=== PATIENT | female | born 1975 | race Hispanic/Latino ===

== ENCOUNTER 2018-01-21 09:14 | Emergency (ER) | payer SELFPAY ==
[2018-01-21 09:54] LABS: Absolute Lymphocytes (CBC) 1.3 K/uL (0.7-4.9); Absolute Monocytes 0.9 K/uL (0.1-1.3); Absolute Neutrophil 6.3 K/uL (1.8-8.0); Basophils % 0.2 % (0-1.3); Eosinophils % 1.1 % (0-4.4); Hematocrit 36.3 % (36.0-45.0); MCV 84.7 fL (80-100); MPV 9.5 fL (7.6-11.3); Monocytes % 10.1 % (3.3-12.3); RBC Red Blood Cell Count 4.28 M/uL (3.86-4.86)
[2018-01-21 10:07] LABS: BUN Blood Urea Nitrogen 5 mg/dL (7-18); Bicarbonate 30 mmol/L (21-32); Glucose Level 179 mg/dL (74-106); Potassium 3.8 mmol/L (3.5-5.1); Sodium Level 135 mmol/L (136-145)
[2018-01-21 10:09] LABS: Urine Blood 2+ (NEG); Urine Glucose 2+ (NEG); Urine Protein NEGATIVE (NEG); Urine pH 7.5 (5.0-7.0)
--- NOTE | 2018-01-21 10:18 | RAD REPORT ---
EXAM DESCRIPTION: CT - Stone Protocol - 01/21/2018 9:58 am CLINICAL HISTORY: Abdominal pain. Upper abdominal pain vomiting and diarrhea for 3 days COMPARISON: December 2016 TECHNIQUE: Computed axial tomography of the abdomen pelvis was obtained without oral or IV contrast. Lack of IV and oral contrast limits evaluation of solid organs, bowel, and vessels. Coronal reformat cecilia images were obtained and reviewed. All CT scans are performed using dose optimization technique as appropriate and may include automated exposure control or mA/KV adjustment according to patient size. FINDINGS: A renal calculus is not seen. An ureteral calculus is not noted. A bladder calculus is not present. Mild nodularity of the omentum and mesentery is without significant change from the prior e xamination. A cirrhotic liver is seen. The spleen measures 16 centimeters. The pancreas and adrenals appear grossly normal. The gallbladder has been removed There is no evidence of diverticulitis. The appendix appears normal An adnexal mass is not seen. The a minimal amount of ascites is present. A tiny umbilical hernia is present. IMPRESSION: Negative for a genitourinary calculus Cirrhosis with mild to moderate splenomegaly
[2018-01-21 10:21] LABS: Urine Bacteria <20 /HPF (<20); Urine Culture Reflex Order REFLEXED; Urine RBC >50 /HPF (NONE SEEN)
[2018-01-21] MEDS ORDERED: NA CHLORIDE 0.9% 1,000 ML ONE (10:23)
--- NOTE | 2018-01-21 11:27 | EDPHYS ---
Physician Documentation [facility] Name: Rosanna York Age: 42 yrs Sex: Female : 1975 Arrival Date: 01/21/2018 Time: 09:16 Bed 16 Private MD: Petra Huff ED Physician Gabriele Garay HPI: 01/21 12:19 This 42 yrs old Female presents to ER via Ambulatory with complaints of Flank gs Pain. 12:19 The patient complains of pain in the left low back. Onset: The symptoms/episode gs began/occurred 2 day(s) ago. Modifying factors: The symptoms are alleviated by nothing. the symptoms are aggravated by nothing. Associated signs and symptoms: Pertinent positives: hematuria, Pertinent negatives: fever. Severity of pain: At its worst the pain was moderate in the emergency department the pain has improved mildly. The patient has experienced similar episodes in the past, a few times. The patient has been recently seen by a physician: the patient's primary care provider, earlier today. 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 - Social history:: Smoking status: Patient uses tobacco products, denies chronic smoking, but will smoke occasionally. - Ebola Screening: : No symptoms or risks identified at this time. ROS: 12:19 All other systems are negative. gs Exam: 12:19 Head/Face: Normocephalic, atraumatic. Eyes: Pupils equal round and reactive to light, gs extra-ocular motions intact. Lids and lashes normal. Conjunctiva and sclera are non-icteric and not injected. Cornea within normal limits. Periorbital areas with no swelling, redness, or edema. ENT: Nares patent. No nasal discharge, no septal abnormalities noted. Tympanic membranes are normal and external auditory canals are clear. Oropharynx with no redness, swelling, or masses, exudates, or evidence of obstruction, uvula midline. Mucous membranes moist. Neck: Trachea midline, no thyromegaly or masses palpated, and no cervical lymphadenopathy. Supple, full range of motion without nuchal rigidity, or vertebral point tenderness. No Meningismus. Chest/axilla: Normal chest wall appearance and motion. Nontender with no deformity. No lesions are appreciated. Cardiovascular: Regular rate and rhythm with a normal S1 and S2. No gallops, murmurs, or rubs. Normal PMI, no JVD. No pulse deficits. Respiratory: Lungs have equal breath sounds bilaterally, clear to auscultation and percussion. No rales, rhonchi or wheezes noted. No increased work of breathing, no retractions or nasal flaring. Abdomen/GI: Soft, non-tender, with normal bowel sounds. No distension or tympany. No guarding or rebound. No evidence of tenderness throughout. Skin: Warm, dry with normal turgor. Normal color with no rashes, no lesions, and no evidence of cellulitis. MS/ Extremity: Pulses equal, no cyanosis. Neurovascular intact. Full, normal range of motion. Neuro: Awake and alert, GCS 15, oriented to person, place, time, and situation. Cranial nerves II-XII grossly intact. Motor strength 5/5 in all extremities. Sensory grossly intact. Cerebellar exam normal. Normal gait. 12:19 Constitutional: The patient appears alert, awake. 12:19 ECG was reviewed by the Attending Physician. 12:19 Back: CVA tenderness, that is moderate, is noted on the left. Vital Signs: 09:25 BP 126 / 86; Pulse 89; Resp 18 S; Temp 99.3(O); Pulse Ox 98% on R/A; Weight 59.42 kg aa5 (R); Height 5 ft. 6 in. (167.64 cm) (R); Pain 8/10; 10:21 BP 147 / 85; Pulse 89; Resp 16; Pulse Ox 97% ; bp 09:25 Body Mass Index 21.14 (59.42 kg, 167.64 cm) aa5 MDM: 09:45 Patient medically screened. gs 12:19 Differential diagnosis: nephrolithiasis, pyelonephritis, UTI. Data reviewed: vital gs signs, nurses notes. Response to treatment: the patient's symptoms have markedly improved after treatment, and as a result, I will discharge patient. 01/21 09:43 Order name: Urine Microscopic Only; Complete Time: 10:45 gs 10/22 09:43 Order name: CBC with Diff; Complete Time: 10:45 gs 01/21 09:43 Order name: Basic Metabolic Panel; Complete Time: 10:45 gs 01/21 09:43 Order name: Flu; Complete Time: 10:45 gs 01/21 09:46 Order name: Urine Dipstick--Ancillary (enter results); Complete Time: 10:45 bd 01/21 10:23 Order name: Urine Culture [facility] 01/21 09:43 Order name: Urine Test (obtain specimen); Complete Time: 10:20 gs 01/21 09:43 Order name: Urine Dipstick-Ancillary (obtain specimen); Complete Time: 10:20 gs 01/21 09:43 Order name: CT Stone Protocol; Complete Time: 10:45 gs 01/21 09:43 Order name: EKG; Complete Time: 09:43 gs 01/21 09:43 Order name: EKG - Nurse/Tech; Complete Time: 10:20 gs EC:19 Rate is 83 beats/min. Rhythm is regular. [place] interval is normal. QRS interval is normal. gs QT interval is normal. T waves are Normal. No ST changes noted. Clinical impression: Abnormal EKG without significant change. Interpreted by me. Administered Medications: 10:15 Drug: NS 0.9% 1000 ml Route: IV; Rate: 1 bolus; Site: left antecubital; bp 11:15 Follow up: IV Status: Completed infusion; IV Intake: 1000ml ls4 Disposition: 01/21/18 11:01 Discharged to Home. Impression: Acute tubulo-interstitial nephritis. - Condition is Stable. - Discharge Instructions: Pyelonephritis, Adult. - Prescriptions for Ceftin 500 mg Oral Tablet - take 1 tablet by ORAL route every 12 hours for 10 days; 20 tablet. - Medication Reconciliation Form, Thank You Letter, Antibiotic Education, Prescription Opioid Use form. - Follow up: Private Physician; When: 2 - 3 days; Reason: Re-evaluation by your physician. Signatures: Dispatcher [employer] Tanvi Galdamez, RN RN aa5 Gabriele Garay MD MD gs Peltier, Brian, RN RN bp Kathleen Seth RN RN ls4 Corrections: (The following items were deleted from the chart) 11:26 11:01 01/21/2018 11:01 Discharged to Home. Impression: Acute tubulo-interstitial ls4 nephritis. Condition is Stable. Forms are Medication Reconciliation Form, Thank You Letter, Antibiotic Education, Prescription Opioid Use. Follow up: Private Physician; When: 2 - 3 days; Reason: Re-evaluation by your physician. gs
--- NOTE | 2018-01-21 11:27 | ER ---
Nurse's Notes [facility] Name: Rosanna York Age: 42 yrs Sex: Female : 1975 Arrival Date: 01/21/2018 Time: 09:16 Bed 16 Private MD: Petra Huff Diagnosis: Acute tubulo-interstitial nephritis Presentation: 01/21 09:22 Presenting complaint: Patient states: upper abd pain, N/V/D that began 2-3 days ago. aa5 09:22 Transition of care: patient was not received from another setting of care. Onset of aa5 symptoms was December 2017. Risk Assessment: Do you want to hurt yourself or someone else? Patient reports no desire to harm self or others. Initial Sepsis Screen: Does the patient meet any 2 criteria? No. Patient's initial sepsis screen is negative. Does the patient have a suspected source of infection? No. Patient's initial sepsis screen is negative. Care prior to arrival: None. 09:22 Method Of Arrival: Ambulatory aa5 09:22 Acuity: BRYAN 3 aa5 Triage Assessment: 11:25 General: Appears in no apparent distress. Behavior is cooperative. Pain: Complains of ls4 pain in left upper quadrant. 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 - Social history:: Smoking status: Patient uses tobacco products, denies chronic smoking, but will smoke occasionally. - Ebola Screening: : No symptoms or risks identified at this time. Screenin:00 Abuse screen: Denies threats or abuse. ls4 11:00 Nutritional screening: No deficits noted. Tuberculosis screening: No symptoms or risk ls4 factors identified. Fall Risk None identified. Vital Signs: 09:25 BP 126 / 86; Pulse 89; Resp 18 S; Temp 99.3(O); Pulse Ox 98% on R/A; Weight 59.42 kg aa5 (R); Height 5 ft. 6 in. (167.64 cm) (R); Pain 8/10; 10:21 BP 147 / 85; Pulse 89; Resp 16; Pulse Ox 97% ; bp 09:25 Body Mass Index 21.14 (59.42 kg, 167.64 cm) aa5 ED Course: 09:16 Patient arrived in ED. mr 09:17 Petra Huff is Private Physician. mr 09:22 Arm band placed on Patient placed in an exam room, on a stretcher. aa5 09:23 Gabriele Garay MD is Attending Physician. 09:29 Triage completed. aa5 09:49 Kathleen Seth, RN is Primary Nurse. ls4 09:49 Patient has correct armband on for positive identification. Bed in low position. Call ls4 light in reach. Side rails up X2. 09:49 No provider procedures requiring assistance completed. Inserted saline lock: 20 gauge ls4 in left antecubital area, using aseptic technique. Blood collected. 09:58 CT Stone Protocol In Process Unspecified. EDMS 10:37 EKG done, by assistive technology specialist. reviewed by Gabriele Garay MD. tc 11:25 IV discontinued, intact, bleeding controlled, No redness/swelling at site. Pressure ls4 dressing applied. Administered Medications: 10:15 Drug: NS 0.9% 1000 ml Route: IV; Rate: 1 bolus; Site: left antecubital; bp 11:15 Follow up: IV Status: Completed infusion; IV Intake: 1000ml ls4 Intake: 11:15 IV: 1000ml; Total: 1000ml. ls4 Outcome: 11:01 Discharge ordered by . 11:26 Discharged to home ambulatory, with family. ls4 11:26 Condition: stable 11:26 Discharge instructions given to patient, Instructed on discharge instructions, follow up and referral plans. medication usage, safety practices, Demonstrated understanding of instructions, follow-up care, medications, Prescriptions given X 1. 11:26 Patient left the ED. ls4 Signatures: Dispatcher [employer] Shagufta Gutierrez Audri, RN RN aa5 Edilia Cruz, otter trawler boatswain EKG Ttc Gabriele Garay MD MD gs Peltier, Brian, LYDIA RN bp Kathleen Seth, LYDIA RN ls4
[2018-01-21 11:49] VITALS: TEMP 99.3
[2018-01-21 11:50] VITALS: BP 147/85; O2SAT 97
--- NOTE | 2018-01-21 16:21 | EKG ---
Test Date: 2018-01-21 Test Time: 10:02:48 Rock Crusher Operator: VIC MEASUREMENT RESULTS: Intervals: Rate: 83 [place]: 178 QRSD: 94 QT: 372 QTc: 437 [place]: P: 66 [place]: 178 QRS: -39 T: 75 INTERPRETIVE STATEMENTS: Normal sinus rhythm Left axis deviation Abnormal ECG Compared to ECG 03/16/2017 15:32:51 Left-axis deviation now present Left anterior fascicular block no longer present Electronically Signed On 01-21-18 16:21:06 CDT by Ruslan Chan
== END 2018-01-21 11:26 | disposition home or self-care (01) ==
LOC: ER 09:14
DX: N10 Acute pyelonephritis (principal); I10 Essential (primary) hypertension; Z72.0 Tobacco use; Z88.0 Allergy status to penicillin
CPT/HCPCS: 36415; 74176; 76377; 80048; 81003; 81015; 85025; 87086; 87088; 87804; 93005; 96360; 99284; J7030

== ENCOUNTER 2018-02-02 09:54 | Inpatient (IN) | payer SELFPAY ==
--- NOTE | 2018-02-02 10:57 | RAD REPORT ---
EXAM DESCRIPTION: Calvin Single View02/02/2018 10:39 am CLINICAL HISTORY: Chest pain COMPARISON: March 2017 FINDINGS: The lungs appear clear of acute infiltrate. The heart is normal size IMPRESSION: No acute abnormalities displayed
[2018-02-02] MEDS ORDERED: ONDANSETRON 4 MG/2 ML VIAL ONE (10:59)
[2018-02-02] MEDS ORDERED: FENTANYL CITR 100 MCG/2 ML ONE (10:59)
--- NOTE | 2018-02-02 11:01 | RAD REPORT ---
EXAM DESCRIPTION: RAD - Foot Right 3 View - 02/02/2018 10:39 am CLINICAL HISTORY: Right foot pain FINDINGS: No fracture or dislocation is seen. Diffuse edema is present within the subcutaneous tissu es. The bones are osteoporotic no bony destructive lesions seen
[2018-02-02] MEDS ORDERED: ZOLPIDEM TARTRATE 5 MG TABLET PO PRN (11:13)
[2018-02-02] MEDS ORDERED: HYDROCODONE/APAP 7.5/325 MG TAB PO PRN (11:13)
[2018-02-02] MEDS ORDERED: TRAMADOL HCL 50 MG TAB PO PRN (11:13)
[2018-02-02 11:28] LABS: Absolute Lymphocytes (CBC) 0.7 K/uL (0.7-4.9); Absolute Monocytes 0.7 K/uL (0.1-1.3); Absolute Neutrophil 6.8 K/uL (1.8-8.0); Basophils % 0.5 % (0-1.3); Eosinophils % 4.3 % (0-4.4); Hematocrit 32.1 % (36.0-45.0); Lymphocytes % 8.6 % (15.3-44.8); MCH 28.3 pg (27.0-35.0); MCV 84.9 fL (80-100); MPV 9.3 fL (7.6-11.3); Monocytes % 8.2 % (3.3-12.3); RBC Red Blood Cell Count 3.78 M/uL (3.86-4.86)
[2018-02-02 11:40] LABS: Urine Blood 2+ (NEG); Urine Glucose 2+ (NEG); Urine Protein 1+ (NEG); Urine Specific Gravity >1.030 (1.005-1.030)
--- NOTE | 2018-02-02 11:44 | P.HP ---
Certification for Inpatient Patient admitted to: Inpatient With expected LOS: >2 Midnights Patient will require the following post-hospital care: Other (Patient may require home health services) Practitioner: I am a practitioner with admitting privileges, knowledge of patient current condition, hospital course, and medical plan of care. Services: Services provided to patient in accordance with Admission requirements found in Title 42 Section 412.3 of the Code of Federal Regulations Patient History Date of Service: 02/02/18 Primary Care Provider: Sunni Huff NP Reason for admission: Right foot cellulitis, failed outpatient therapy History of Present Illness: 42-year-old female presented emergency room with worsening right foot cellulitis. Patient reports that she was seen by her PCP early this week. She was provided medication for cellulitis to the right foot. She took 2 different types of antibiotics. Patient is diabetic with neuropathy. She reported that she stepped on something. Patient noted increasing pain, swelling, erythema to the right foot. She came to the ER for further evaluation. In the ER patient evaluated. White count 8.7, hemoglobin 10.7. BMP pending. X -ray shows diffuse edema to the foot. No bony abnormality noted. Chest x-ray unremarkable. Patient found to have significant right foot cellulitis/abscess. Patient admitted for treatment. When I saw the patient ER, she appeared stable. Patient had pain, erythema, swelling to the right foot. Patient reports history of diabetes type 2, insulin -dependent, depression, diabetic neuropathy and tobacco use. Allergies acetaminophen [From Tylenol] Allergy (Unverified 03/16/17 18:59) Unknown Penicillins Allergy (Verified 01/14/17 08:17) Unknown Home medications list reviewed: Yes Home Medications: Ciprofloxacin HCl [Cipro 250 MG Tablet*] 250 mg PO BID #10 tab 01/16/17 Metformin HCl 500 mg PO BID #60 tablet 01/16/17 - Past Medical/Surgical History -: Diabetes mellitus type 2, insulin dependent -: Tobacco abuse -: Diabetic neuropathy -: Depression -: Insomnia -: Cholecystectomy Psychosocial/ Personal History: Patient is . She has 5 children. 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 - Family History Mother -: Heart disease, Diabetes - Social History Smoking Status: Light Tobacco smoker (1-9 cigarettes/day) Counseled patient to stop smoking for: less than 10 minutes Smoking therapy provided: Yes Patient receptive to therapy: Yes Alcohol use: No CD- Drugs: No Caffeine use: Yes Place of Residence: Home Review of Systems General: Weakness, As per HPI Eyes: Unremarkable ENT: Unremarkable Respiratory: Unremarkable Cardiovascular: Unremarkable Gastrointestinal: Unremarkable Genitourinary: Unremarkable Musculoskeletal: Foot Pain, Pedal edema, As per HPI Integumentary: As per HPI Neurological: Unremarkable Lymphatics: Unremarkable Physical Examination - Physical Exam General: Alert, Oriented x3, Cooperative HEENT: Atraumatic Neck: Supple Respiratory: Clear to auscultation bilaterally, Normal air movement Cardiovascular: Normal pulses, Regular rate/rhythm Gastrointestinal: Normal bowel sounds, Soft and benign, Non-distended, No tenderness, No masses, No rebound, No guarding Musculoskeletal: Erythema, Tenderness, Warmth, Other (Right foot with erythema, pain and swelling. Area of infection covers the 3rd 4th 5th toes and forefoot also on the bottom of her foot there is a collection of fluctuance.) Integumentary: Other (As above) Neurological: Normal speech, Normal strength at 5/5 x4 extr, Normal tone, Normal affect - Studies Laboratory Data (last 24 hrs) 02/02/18 10:50: WBC 8.7, Hgb 10.7 L, Hct 32.1 L, Plt Count 174 D Assessment and Plan - Plan Impression: Right diabetic foot cellulitis with abscess, failed outpatient therapy Diabetes mellitus type 2, insulin dependent, uncontrolled Diabetic neuropathy Anemia likely of chronic disease Tobacco abuse Depression Insomnia Plan: Right diabetic foot cellulitis with abscess, failed outpatient therapy: Patient will be admitted. Will start IV Levaquin and vancomycin. Pharmacy to adjust medication. X-ray shows no bony abnormality indicating osteomyelitis. Will discuss case further with surgery. Patient may require debridement. Will follow along closely. Will obtain wound and blood cultures. Will monitor pro calcitonin. Will continue to reassess. Will provide medication for pain. Will check to see if the patient is up-to-date on her tetanus shot. DVT prophylaxis in place. Depending how she progresses patient may require home health at discharge. Diabetes mellitus type 2, insulin dependent, uncontrolled: Will start insulin sliding scale. Will obtain home medication and verify. Will check A1c. Diabetic neuropathy: Will start Neurontin. Will provide medication for pain. Anemia likely of chronic disease: Will monitor closely. Will check Iron studies. Tobacco abuse: Will provide nicoderm. Depression: Will verify home medication and restart. Insomnia: Will provide medication. Patient reports taking Ambien 20 mg. This is a high dose. Will decrease to 10 as needed. Discharge Plan: Home Plan to discharge in: Greater than 2 days - Advance Directives Does patient have a Living Will: No Does patient have a Durable POA for Healthcare: No - Code Status/Comfort Care Code Status Assessed: Yes (Patient full code.) Time Spent Managing Pts Care (In Minutes): 55
[2018-02-02 11:49] LABS: Urine Bacteria 20-50 /HPF (<20); Urine Culture Reflex Order NOT NEEDED; Urine RBC >50 /HPF (NONE SEEN)
[2018-02-02 11:58] LABS: ALT/SGPT 19 U/L (12-78); AST/SGOT 23 U/L (15-37); Albumin 2.6 g/dL (3.4-5.0); Alkaline Phosphatase 270 U/L (45-117); BUN Blood Urea Nitrogen 9 mg/dL (7-18); Bicarbonate 27 mmol/L (21-32); Bilirubin Direct 0.4 mg/dL (0-0.2); Bilirubin Total 0.8 mg/dL (0.2-1.0); Creatine Phosphokinase 30 U/L (26-192); Glucose Level 276 mg/dL (74-106); Potassium 3.6 mmol/L (3.5-5.1); Protein, Total 8.4 g/dL (6.4-8.2); Sodium Level 132 mmol/L (136-145)
[2018-02-02] MEDS: Levofloxacin500mg IV 500 MG/100 ML BAG IV SCH (12:00)
[2018-02-02] MEDS: VANCOMYCIN/NS 1 gm 1 GM/250 ML BAG IV SCH (12:00)
--- NOTE | 2018-02-02 12:09 | EDPHYS ---
Physician Documentation [facility] Name: Rosanna York Age: 42 yrs Sex: Female : 1975 Arrival Date: 02/02/2018 Time: 09:56 Bed 14 Private MD: ED Physician James Arias HPI: 02/02 10:25 This 42 yrs old Female presents to ER via Ambulatory with complaints of Wound cp Check - antibiotics not working. 10:25 The patient presents with pain, that is acute, swelling, tenderness. The complaints cp affect the right foot. 10:25 Onset: The symptoms/episode began/occurred 1 week(s) ago. Associated signs and cp symptoms: Pertinent negatives: fever. Severity of symptoms: in the emergency department the symptoms are actually worse. Patient reports finishing 7 day course of oral Bactrim and redness and swelling worse right foot. 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 - Social history:: Smoking status: Patient uses tobacco products, denies chronic smoking, but will smoke occasionally. - Ebola Screening: : No symptoms or risks identified at this time. ROS: 10:31 Eyes: Negative for injury, pain, redness, and discharge. cp 10:31 Constitutional: Negative for body aches, chills, fever, poor PO intake. 10:31 Cardiovascular: Negative for chest pain, palpitations. 10:31 Respiratory: Negative for cough, shortness of breath, wheezing. 10:31 Abdomen/GI: Negative for abdominal pain, nausea, vomiting, and diarrhea. 10:31 MS/extremity: Positive for erythema, pain, swelling, tenderness, of the right foot. 10:31 Skin: Positive for cellulitis, open wound right foot. 10:31 Neuro: Negative for altered mental status, headache, weakness. 10:31 All other systems are negative. Exam: 10:35 Constitutional: The patient appears in no acute distress, alert, awake, cp non-diaphoretic, non-toxic, well developed, well nourished. 10:35 Head/Face: Normocephalic, atraumatic. cp 10:35 Eyes: Periorbital structures: appear normal, Conjunctiva: normal, no exudate, no injection, Sclera: no appreciated abnormality, Lids and lashes: appear normal, bilaterally. 10:35 ENT: External ear(s): are unremarkable, Ear canal(s): are normal, clear, TM's: dullness, bilaterally, Nose: is normal, Mouth: Lips: moist, Oral mucosa: pink and intact, moist, Posterior pharynx: is normal, airway is patent, no erythema, no exudate, Voice: is normal. 10:35 Neck: ROM/movement: is normal, is supple, without pain, no range of motions limitations, no nuchal rigidity. 10:35 Chest/axilla: Inspection: normal, Palpation: is normal, no crepitus, no tenderness. 10:35 Cardiovascular: Rate: normal, Rhythm: regular, Pulses: Pulses are 1+ in right dorsalis pedis artery. JVD: is not appreciated. 10:35 Respiratory: the patient does not display signs of respiratory distress, Respirations: normal, no use of accessory muscles, no retractions, no splinting, no tachypnea, labored breathing, is not present, Breath sounds: are clear throughout, no decreased breath sounds, no stridor, no wheezing. 10:35 Abdomen/GI: Inspection: abdomen appears normal, Palpation: abdomen is soft and non-tender, in all quadrants. 10:35 Back: pain, is absent, ROM is normal. 10:35 Neuro: Orientation: to person, place \T\ time. Mentation: is normal, Cerebellar function: is grossly normal, Motor: moves all fours, strength is normal, Sensation: no obvious gross deficits. 10:35 Musculoskeletal/extremity: Extremities: grossly normal except: noted in the right foot: cp erythema, pain, swelling, tenderness, drainage from web space of fourth and fifth toes. 11:19 ECG was reviewed by the Attending Physician. cp Vital Signs: 10:00 BP 122 / 82; Pulse 86; Resp 16; Temp 99; Pulse Ox 100% on R/A; Weight 58.06 kg; Height la1 5 ft. 6 in. (167.64 cm); Pain 7/10; 12:00 BP 128 / 83; Pulse 79; Resp 16; Pulse Ox 100% ; rb1 13:00 BP 133 / 74; Pulse 77; Resp 17; Pulse Ox 100% ; rb1 10:00 Body Mass Index 20.66 (58.06 kg, 167.64 cm) la1 MDM: 10:10 Patient medically screened. cp 10:59 Physician consultation: Boaz Grajeda DO was contacted at 10:45, in the emergency cp department to see patient at 10:55. 11:00 Differential diagnosis: cellulitis, sepsis, osteomyelitis. cp 12:07 Data reviewed: vital signs, nurses notes, lab test result(s), radiologic studies, plain cp films. 12:07 Test interpretation: by ED physician or midlevel provider: plain radiologic studies. 02/02 10:30 Order name: C-Reactive Protein 02/02 10:30 Order name: Sed Rate 02/02 10:30 Order name: Wound Culture 02/02 10:30 Order name: Basic Metabolic Panel 02/02 10:30 Order name: Blood Culture Adult (2) 02/02 10:30 Order name: CBC with Diff 02/02 10:30 Order name: CPK 02/02 10:30 Order name: Lactate 02/02 10:30 Order name: LFT's 02/02 10:30 Order name: Procalcitonin; Complete Time: 12:05 cp 02/02 12:06 Interpretation: Within normal limits: Procalcitonin 0.20. cp 02/02 10:30 Order name: Protime (+inr) cp 02/02 10:30 Order name: Ptt, Activated cp 02/02 10:30 Order name: Urine Microscopic Only; Complete Time: 11:53 cp 02/02 11:53 Interpretation: Normal except: UWBC 5-10; URBC >50; UBACT 20-50; SQEPI 10-20. cp 02/02 10:31 Order name: C-Reactive Protein; Complete Time: 12:05 EDMS 02/02 12:06 Interpretation: Abnormal: C-REACTIVE PROT 96.00. cp 02/02 10:31 Order name: Sedimentation Rate, Westergren; Complete Time: 12:05 [facility] 02/02 10:31 Order name: Wound Culture [facility] 02/02 10:31 Order name: Basic Metabolic Panel; Complete Time: 12:05 [facility] 02/02 12:06 Interpretation: Normal except: NA 132; GLUC 276; CA 8.3. 02/02 10:31 Order name: Blood Culture [facility] 02/02 10:31 Order name: CBC with Automated Diff; Complete Time: 12:05 [facility] 02/02 11:42 Interpretation: Normal except: RBC 3.78; HGB 10.7; HCT 32.1; PLT 174; LEONIDAS% 78.4; LYM% cp 8.6. 02/02 10:31 Order name: Creatine Phosphokinase; Complete Time: 12:05 [facility] 02/02 10:31 Order name: Lactate [facility] 02/02 10:31 Order name: Liver (Hepatic) Function; Complete Time: 12:05 [facility] 02/02 11:11 Order name: Urine Culture 02/02 11:24 Order name: Hemoglobin A1c [facility] 02/02 11:24 Order name: T4 Free [facility] 02/02 11:24 Order name: Thyroid Stimulating Hormone [facility] 02/02 11:24 Order name: Blood Culture [facility] 02/02 11:38 Order name: Urine Dipstick--Ancillary (enter results) [facility] 02/02 11:38 Order name: Urine --Ancillary (enter results) [facility] 02/02 11:41 Order name: Urine --Ancillary; Complete Time: 11:42 [facility] 02/02 11:54 Interpretation: Reviewed. 02/02 10:18 Order name: XRAY Foot RIGHT 3 View; Complete Time: 11:05 02/02 11:05 Interpretation: Report reviewed. 02/02 10:30 Order name: Chest Single View XRAY; Complete Time: 11:05 02/02 11:06 Interpretation: Report review. 02/02 10:30 Order name: Accucheck; Complete Time: 11:43 02/02 10:30 Order name: Cardiac monitoring; Complete Time: 11:37 02/02 10:30 Order name: EKG - Nurse/Tech; Complete Time: 11:19 02/02 10:30 Order name: IV Saline Lock - Large Bore; Complete Time: 11:01 02/02 10:30 Order name: Labs collected and sent; Complete Time: 11:01 02/02 10:30 Order name: O2 Per Protocol; Complete Time: 11:01 02/02 10:30 Order name: O2 Sat Monitoring; Complete Time: 11:01 02/02 10:30 Order name: Urine Dipstick-Ancillary (obtain specimen); Complete Time: 11:36 02/02 10:34 Order name: Urine Test (obtain specimen); Complete Time: 11:36 02/02 11:24 Order name: CONS Pharmacy Consult [facility] 02/02 11:24 Order name: CONS Physician Consult [facility] 02/02 11:24 Order name: Consistent Carb (ADA) [address] [facility] 02/02 11:41 Order name: Urine Dipstick-Ancillary; Complete Time: 11:42 [facility] 02/02 11:42 Interpretation: Normal except: UGLUC 2+; UBLD 2+; UPROT 1+. cp EC:19 Rate is 80 beats/min. Rhythm is regular. WI interval is normal. QRS interval is normal. cp QT interval is normal. Interpreted by me. Reviewed by me. Administered Medications: 11:00 Drug: fentaNYL (PF) 25 mcg Route: IVP; Site: right antecubital; rb1 11:15 Follow up: Response: No adverse reaction; Pain is decreased rb1 11:00 Drug: Zofran 4 mg Route: IVP; Site: right antecubital; rb1 11:15 Follow up: Response: No adverse reaction; Nausea is decreased rb1 12:16 Drug: vancoMYCIN 1 grams Route: IVPB; Infused Over: 2 hrs; Site: right antecubital; rb1 13:05 Follow up: Response: No adverse reaction; IV Status: Infusion continued upon admission rb1 12:45 Drug: LevaQUIN 750 mg Volume: 150 ml; Route: IVPB; Infused Over: 90 mins; Site: right rb1 antecubital; 13:05 Follow up: Response: No adverse reaction; IV Status: Infusion continued upon admission rb1 Point of Care Testing: Blood Glucose: 11:43 Blood Glucose: 269 mg/dL; ds4 Ranges: Critical Glucose Levels:Adult <50 mg/dl or >400 mg/dl <40 mg/dl or >180 mg/dl Disposition: 16:49 Co-signature as Attending Physician, James Arias MD I agree with the assessment and kdr plan of care. Disposition: 02/02/18 12:08 Hospitalization ordered by Boaz Grajeda for Inpatient Admission. Preliminary diagnosis is Cellulitis and acute lymphangitis of other parts of limb - Right Foot. - Bed requested for Telemetry/MedSurg (Inpatient). - Status is Inpatient Admission. rb1 - Condition is Stable. - Problem is an ongoing problem. - Symptoms are unchanged. UTI on Admission? No Signatures: Dispatcher [employer] EDMS James Arias MD MD kdr Martinez, Eric em1 Chris Li RN RN la1 Abner South PA PA cp Tash Yu, RN RN rb1 Corrections: (The following items were deleted from the chart) 10:26 10:26 This 42 yrs old Female presents to ER via Ambulatory with complaints of cp Wound Check - antibiotics not working. cp 11:03 10:05 Home Meds: Prozac Oral; rb1 rb1 11:03 10:05 Home Meds: Ambien Oral; rb1 rb1 12:06 12:06 Normal except: NA 132; GLUC 276. cp cp 12:19 12:08 Hospitalization Ordered by Boaz Grajeda DO for Inpatient Admission. Preliminary em1 diagnosis is Cellulitis and acute lymphangitis of other parts of limb - Right Foot. Bed requested for Telemetry/MedSurg (Inpatient). Status is Inpatient Admission. Condition is Stable. Problem is an ongoing problem. Symptoms are unchanged. UTI on Admission? No. cp 13:10 12:19 02/02/2018 12:08 Hospitalization Ordered by Boaz Grajeda DO for Inpatient rb1 Admission. Preliminary diagnosis is Cellulitis and acute lymphangitis of other parts of limb - Right Foot. Bed requested for Telemetry/MedSurg (Inpatient). Status is Inpatient Admission. Condition is Stable. Problem is an ongoing problem. Symptoms are unchanged. UTI on Admission? No. em1
--- NOTE | 2018-02-02 12:09 | ER ---
Nurse's Notes [facility] Name: Rosanna York Age: 42 yrs Sex: Female : 1975 Arrival Date: 02/02/2018 Time: 09:56 Bed 14 Private MD: Diagnosis: Cellulitis and acute lymphangitis of other parts of limb-Right Foot Presentation: 02/02 09:59 Presenting complaint: Patient states: RIGHT foot pain and swelling x 1 week. Transition la1 of care: patient was not received from another setting of care. Onset of symptoms was February 02, 2018. Risk Assessment: Do you want to hurt yourself or someone else? Patient reports no desire to harm self or others. Care prior to arrival: None. 09:59 Method Of Arrival: Ambulatory la1 09:59 Acuity: BRYAN 3 la1 10:05 Initial Sepsis Screen: Does the patient meet any 2 criteria? No. Patient's initial rb1 sepsis screen is negative. Does the patient have a suspected source of infection? No. Patient's initial sepsis screen is negative. 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 - Social history:: Smoking status: Patient uses tobacco products, denies chronic smoking, but will smoke occasionally. - Ebola Screening: : No symptoms or risks identified at this time. Screenin:05 Abuse screen: Denies threats or abuse. Nutritional screening: No deficits noted. rb1 Tuberculosis screening: No symptoms or risk factors identified. Fall Risk None identified. Assessment: 10:05 General: Appears uncomfortable, Behavior is calm, cooperative, Reports chills for rb1 Denies fever. Pain: Complains of pain in right foot Pain radiates to right leg Pain currently is 7 out of 10 on a pain scale. Pain began x 1 week. Neuro: Level of Consciousness is awake, alert, obeys commands, Oriented to person, place, time, situation. Cardiovascular: Capillary refill < 3 seconds is brisk in bilateral fingers. Respiratory: Airway is patent Respiratory effort is even, unlabored, Respiratory pattern is regular, symmetrical. GI: Reports diarrhea. : No signs and/or symptoms were reported regarding the genitourinary system. Derm: dark purple discoloration on the right foot, skin is sloughing off the 4th toe on the right foot and the sole of the right foot. Musculoskeletal: Range of motion: intact in all extremities. 10:55 Reassessment: Dr. Grajeda is at pt. bedside. rb1 11:00 Reassessment: Patient appears in no apparent distress at this time. Patient and/or rb1 family updated on plan of care and expected duration. Pain level reassessed. Patient is alert, oriented x 3, equal unlabored respirations, skin warm/dry/pink. 12:17 Reassessment: Patient appears in no apparent distress at this time. Patient and/or rb1 family updated on plan of care and expected duration. Pain level reassessed. Patient is alert, oriented x 3, equal unlabored respirations, skin warm/dry/pink. 12:37 Reassessment: Tried to call report but LYDIA Nava was unavailable. She will call back. rb1 12:45 Reassessment: Gave report to LYDIA Nava. Information from the SBAR was given. All rb1 questions asked and answered. 13:07 Reassessment: Patient appears in no apparent distress at this time. No changes from rb1 previously documented assessment. Vital Signs: 10:00 BP 122 / 82; Pulse 86; Resp 16; Temp 99; Pulse Ox 100% on R/A; Weight 58.06 kg; Height la1 5 ft. 6 in. (167.64 cm); Pain 7/10; 12:00 BP 128 / 83; Pulse 79; Resp 16; Pulse Ox 100% ; rb1 13:00 BP 133 / 74; Pulse 77; Resp 17; Pulse Ox 100% ; rb1 10:00 Body Mass Index 20.66 (58.06 kg, 167.64 cm) la1 ED Course: 09:56 Patient arrived in ED. as 10:00 Triage completed. la1 10:01 Arm band placed on right wrist. la1 10:05 Patient has correct armband on for positive identification. Placed in gown. Bed in low rb1 position. Call light in reach. Side rails up X 1. Pulse ox on. NIBP on. 10:07 Tash Yu, RN is Primary Nurse. rb1 10:10 Abner South PA is PHCP. cp 10:10 James Arias MD is Attending Physician. cp 10:39 XRAY Foot RIGHT 3 View In Process Unspecified. EDMS 10:40 Chest Single View XRAY In Process Unspecified. EDMS 10:50 Inserted saline lock: 22 gauge in right antecubital area, using aseptic technique. rb1 ,using aseptic technique. IV inserted by IVANNA Madison. 11:07 Liver (Hepatic) Function Sent. ds4 11:07 Creatine Phosphokinase Sent. ds4 11:07 Blood Culture Sent. ds4 11:07 Basic Metabolic Panel Sent. ds4 11:07 CBC with Automated Diff Sent. ds4 11:07 Lactate Sent. ds4 11:07 Sedimentation Rate, Westergren Sent. ds4 11:07 C-Reactive Protein Sent. ds4 11:08 C-Reactive Protein Sent. ds4 11:08 Sed Rate Sent. ds4 11:08 Basic Metabolic Panel Sent. ds4 11:08 Procalcitonin Sent. ds4 11:08 Lactate Sent. ds4 11:08 CBC with Diff Sent. ds4 11:08 Blood Culture Adult (2) Sent. ds4 11:08 CPK Sent. ds4 11:08 Protime (+inr) Sent. ds4 11:08 Ptt, Activated Sent. ds4 11:19 EKG done, by ED staff, reviewed by James Arias MD. ds4 11:36 Blood Culture Sent. ds4 11:36 Urine Microscopic Only Sent. ds4 11:36 Ptt, Activated Sent. ds4 11:36 Protime (+inr) Sent. ds4 11:36 Procalcitonin Sent. ds4 11:36 LFT's Sent. ds4 11:43 Urine --Ancillary (enter results) Sent. ds4 11:43 Urine Dipstick--Ancillary (enter results) Sent. ds4 12:07 Boaz Grajeda DO is Hospitalizing Provider. cp 13:09 No provider procedures requiring assistance completed. Patient admitted, IV remains in rb1 place. Administered Medications: 11:00 Drug: fentaNYL (PF) 25 mcg Route: IVP; Site: right antecubital; rb1 11:15 Follow up: Response: No adverse reaction; Pain is decreased rb1 11:00 Drug: Zofran 4 mg Route: IVP; Site: right antecubital; rb1 11:15 Follow up: Response: No adverse reaction; Nausea is decreased rb1 12:16 Drug: vancoMYCIN 1 grams Route: IVPB; Infused Over: 2 hrs; Site: right antecubital; rb1 13:05 Follow up: Response: No adverse reaction; IV Status: Infusion continued upon admission rb1 12:45 Drug: LevaQUIN 750 mg Volume: 150 ml; Route: IVPB; Infused Over: 90 mins; Site: right rb1 antecubital; 13:05 Follow up: Response: No adverse reaction; IV Status: Infusion continued upon admission rb1 Point of Care Testing: Blood Glucose: 11:43 Blood Glucose: 269 mg/dL; ds4 Ranges: Outcome: 12:08 Decision to Hospitalize by Provider. cp 13:09 Admitted to Med/surg accompanied by tech, via wheelchair, room 225, with chart, Report rb1 called to LYDIA Nava. Information from the SBAR was given. All questions asked and answered. 13:09 Condition: stable 13:09 Instructed on the need for admit. 13:10 Patient left the ED. rb1 Signatures: Dispatcher [employer] EDMS Anabel Campos Donovan ds4 Chris Li RN RN la1 Abner South PA PA Tash Gauthier RN RN rb1 Corrections: (The following items were deleted from the chart) 11:03 10:05 Home Meds: Prozac Oral; rb1 rb1 11:03 10:05 Home Meds: Ambien Oral; rb1 rb1
[2018-02-02 12:45] LABS: Protime INR 1.14
[2018-02-02] MEDS: INSULIN -REGULAR HUMAN 50 UNIT/0.5 ML ML SQ SCH ×3 (13:52→21:56)
[2018-02-02] MEDS: ENOXAPARIN 40 MG/0.4 ML SQ SCH (13:53)
[2018-02-02] MEDS: NICOTINE 21 MG/PAT TD SCH (13:53)
[2018-02-02] MEDS: NA CHLORIDE 0.9% 1,000 ML IV SCH ×2 (13:54→21:54)
[2018-02-02 14:23] VITALS: BMI 20.8
[2018-02-02 16:25] LABS: Thyroid Stimulating Hormone 0.546 uIU/mL (0.360-3.740)
--- NOTE | 2018-02-02 17:43 | CON ---
Date of Consultation: 02/02/2018 Brief History Of Present Illness: The patient is a 42-year-old female, who presents to the emergency room with worsening right foot cellulitis. She states that she stepped on something earlie r in the week. She is unsure what it was, but thinks she received a puncture wound to the right foot on the plantar aspect at the mid foot area. She has noted some redness, swelling and cellulitis. S he was placed on antibiotics by her PCP, but the cellulitis continued to get worse. She says that th ere were two antibiotics. She is unsure of the type. She thinks one of them may have been Bactrim, but once again she is uncertain. She has noted increased swelling, pain and some discharge from the fifth webspace and some odor coming from this area and discoloration of the skin. As such, she came to the emergency room. Past Medical History: Significant for diabetes, diabetic neuropathy, depression, insomnia. Past Surgical History: Includes cholecystectomy. Social History: She is , has 5 children. 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 She uses tobacco approximate ly half a pack per day. She denies alcohol or recreational drug use. Allergies: TO TYLENOL AND PENICILLIN. Home Medications: Include Cipro, metformin only. Review of Systems: A 10-point review of systems other than HPI, denies. Physical Examination: Vital Signs: At the time of examination, her vital signs were stable. General: She is awake, alert, oriented. Psychiatric: She is appropriate conversive. HEENT: She is normocephalic. Sclerae anicteric. Mucous membranes moist. Oropharynx clear. Neck: Supple. No JVD. Chest: Normal expansion and excursion. Cardiovascular: Regular rate and rhythm. Pulmonary: Clear to auscultation bilaterally. Abdomen: Soft, nontender, nondistended. Extremities: Focused examination of the right extremity shows that there is a cellulitic change from the plantar aspect of the foot all the way to the dorsal aspect of the foot, but not going beyond th e ankle joint. Minimal tenderness to palpation. There is some clear discharge from the fifth webspa ce and some skin changes with the desquamation on the plantar aspect of the foot. There is no draina ble collections appreciated and the tenderness is minimal at this time. Laboratory Data: She had a laboratory examination, which reveals a white blood cell count of 8.7, he moglobin 10.7, hematocrit 32.1, platelet count is 174, neutrophils are 78%. She had a sodium 132, po tassium 3.6, chloride 98, carbon dioxide 27, BUN 9, creatinine 0.6, glucose is 276, lactic acid 1.4, calcium 8.3, total bilirubin is 0.8. She had a UA, which appear to show greater than 50 red blood ce lls, 5 to 10 white blood cells, epithelial cells, 20 to 50 bacteria. test was negative. S he had imaging performed of the right foot, which was officially read as no fracture, dislocation, di ffuse edema present within the subcutaneous tissues, bones are osteoporotic. No bony destructive les ions are seen. Assessment And Plan: This is a 42-year-old female, presents with signs and symptoms of cellulitis to the right foot, likely from a puncture wound. 1.IV fluid hydration. 2.Antibiotic coverage. 3.Elevation and local wound care with gentle compression and dry gauze and wrappings to the foot and serial exams. I have explained the risks, benefits, alternatives of the above stated plan. The pat ient agrees to proceed as indicated. MALCOM/URBANO Voice ID: [id number] Report ID: [id number]
[2018-02-02] MEDS: FAMOTIDINE 20 MG TAB PO SCH (21:54)
[2018-02-02] MEDS: GABAPENTIN 100 MG CAP PO SCH (21:55)
[2018-02-03] MEDS: ONDANSETRON 4 MG/2 ML VIAL IV PRN ×2 (00:50→05:00)
[2018-02-03] MEDS: MORPHINE 4 MG/ML SYR IV PRN (05:10)
[2018-02-03] MEDS: NA CHLORIDE 0.9% 1,000 ML IV SCH ×2 (05:11→16:57)
[2018-02-03 05:59] LABS: BUN Blood Urea Nitrogen 8 mg/dL (7-18); Bicarbonate 29 mmol/L (21-32); Glucose Level 253 mg/dL (74-106); HDL Cholesterol 21 mg/dL (40-60); LDL Cholesterol, Calculated 36 (<130); Magnesium 1.7 mg/dL (1.8-2.4); Potassium 4.3 mmol/L (3.5-5.1); Sodium Level 140 mmol/L (136-145)
[2018-02-03 06:02] LABS: Absolute Lymphocytes (CBC) 0.6 K/uL (0.7-4.9); Absolute Monocytes 0.4 K/uL (0.1-1.3); Absolute Neutrophil 4.2 K/uL (1.8-8.0); Basophils % 0.1 % (0-1.3); Hematocrit 28.8 % (36.0-45.0); Lymphocytes % 10.8 % (15.3-44.8); MCH 28.5 pg (27.0-35.0); MCV 84.5 fL (80-100); MPV 9.1 fL (7.6-11.3); Monocytes % 8.2 % (3.3-12.3); RBC Red Blood Cell Count 3.41 M/uL (3.86-4.86)
[2018-02-03] MEDS ORDERED: MAGNESIUM SULFATE 1 gm IVPB 1 GM/100 ML BAG IV ONE (06:06)
[2018-02-03] MEDS: INSULIN -REGULAR HUMAN 50 UNIT/0.5 ML ML SQ SCH ×4 (08:06→20:19)
[2018-02-03] MEDS: FAMOTIDINE 20 MG TAB PO SCH (08:07)
[2018-02-03] MEDS: GABAPENTIN 100 MG CAP PO SCH ×2 (08:07→20:12)
[2018-02-03] MEDS: ASPIRIN EC 81 MG TAB PO SCH (08:07)
[2018-02-03] MEDS: ENOXAPARIN 40 MG/0.4 ML SQ SCH (08:08)
[2018-02-03] MEDS: NICOTINE 21 MG/PAT TD SCH (08:08)
--- NOTE | 2018-02-03 10:22 | EKG ---
Test Date: 2018-02-02 Test Time: 11:14:58 [employer] Officer: FAUZIA MEASUREMENT RESULTS: Intervals: Rate: 80 WV: 174 QRSD: 98 QT: 382 QTc: 440 [place]: P: 17 WV: 174 QRS: -36 T: 63 INTERPRETIVE STATEMENTS: Normal sinus rhythm with sinus arrhythmia Left axis deviation Abnormal ECG Compared to ECG 01/21/2018 10:02:48 No significant changes Electronically Signed On 02-03-18 10:22:14 TREE [employer]ALLER by Ruslan Chan
[2018-02-03] MEDS ORDERED: GLUCAGON 1 MG/VIAL IM PRN (10:47)
[2018-02-03] MEDS ORDERED: D50W 25 GM/50 ML SYRINGE IV PRN (10:47)
--- NOTE | 2018-02-03 10:47 | P.PN ---
Subjective Date of Service: 02/03/18 Primary Care Provider: Sunni Huff NP Chief Complaint: Right foot cellulitis, failed outpatient therapy Subjective: Other (Doing better. Some nausea this morning.) Physical Examination - Vital Signs Temperature: 97.9 F Blood Pressure: 111/64 Pulse: 73 Respirations: 20 Pulse Ox (%): 97 - Physical Exam General: Alert, In no apparent distress, Oriented x3, Cooperative HEENT: Atraumatic Neck: Supple Respiratory: Clear to auscultation bilaterally, Normal air movement Cardiovascular: Normal pulses, Regular rate/rhythm Gastrointestinal: Normal bowel sounds, Soft and benign, Non-distended, No tenderness, No masses, No rebound, No guarding Integumentary: Other (Erythema, pain, swelling to the right foot improved.) Neurological: Normal speech, Normal strength at 5/5 x4 extr, Normal tone, Normal affect - Studies Laboratory Data (last 24 hrs) 02/02/18 10:50: PT 13.5 H, INR 1.14, APTT 33.2 02/02/18 10:50: Sodium 132 L, Potassium 3.6, BUN 9, Creatinine 0.60, Glucose 276 H, Total Bilirubin 0.8, AST 23, ALT 19, Alkaline Phosphatase 270 H Medications List Reviewed: Yes Assessment & Plan Discharge Plan: Home Plan to discharge in: 72 Hours Physician Review Additional Text: Impression: Right diabetic foot cellulitis with abscess, failed outpatient therapy Diabetes mellitus type 2, insulin dependent, uncontrolled Diabetic neuropathy Anemia likely of chronic disease Tobacco abuse Depression Insomnia UTI Plan: Right diabetic foot cellulitis with abscess, failed outpatient therapy: Will continue with IV Levaquin and vancomycin. Pharmacy to adjust medication. X- ray shows no bony abnormality indicating osteomyelitis. Case discussed with surgery. Will have wound care consultation to evaluate and treat. Patient may not require debridement. Will continue with IV antibiotic therapy. Will continue to reassess daily. DVT prophylaxis in place. Will have physical therapy assess ambulation. Will monitor closely. Likely home with home health and physical therapy versus skilled placement. Diabetes mellitus type 2, insulin dependent, uncontrolled: Will start basal insulin. Will continue to monitor and adjust appropriately. Diabetic neuropathy: Will continue with Neurontin. Will provide medication for pain. Anemia likely of chronic disease: Will monitor closely. Will check Iron studies. Tobacco abuse: Will provide nicoderm. Depression: Will continue with her medication-Prozac 40 mg daily Insomnia: Will provide medication-Ambien 5 mg daily. Patient also takes Elavil at night. UTI: UTI suspected. Patient on antibiotic therapy. Await urine culture results. Time Spent Managing Pts Care (In Minutes): 55
[2018-02-03] MEDS: Levofloxacin500mg IV 500 MG/100 ML BAG IV SCH (11:36)
[2018-02-03] MEDS ORDERED: PROMETHAZINE 25 MG/ML VIAL IV ONE (12:00)
[2018-02-03] MEDS: FLUOXETINE 20 MG CAP PO SCH (12:00)
[2018-02-03 12:27] LABS: Ferritin 164.7 ng/mL (8-388)
[2018-02-03] MEDS: VANCOMYCIN/NS 1 gm 1 GM/250 ML BAG IV SCH ×2 (12:33→23:33)
[2018-02-03] MEDS: AMITRIPTYLINE 25 MG TAB PO SCH (20:12)
[2018-02-03] MEDS ORDERED: INSULIN GLARGINE 100 UNITS/ML SQ SCH (21:00)
[2018-02-04] MEDS: NA CHLORIDE 0.9% 1,000 ML IV SCH ×4 (03:36→21:42)
[2018-02-04 05:59] LABS: Absolute Lymphocytes (CBC) 0.7 K/uL (0.7-4.9); Absolute Monocytes 0.5 K/uL (0.1-1.3); Basophils % 1.1 % (0-1.3); Hematocrit 30.5 % (36.0-45.0); Lymphocytes % 12.9 % (15.3-44.8); MCH 28.6 pg (27.0-35.0); MCV 85.1 fL (80-100); MPV 8.7 fL (7.6-11.3); Monocytes % 9.2 % (3.3-12.3); RBC Red Blood Cell Count 3.58 M/uL (3.86-4.86)
[2018-02-04 06:05] LABS: Urine Appearance CLOUDY; Urine Bilirubin NEGATIVE (NEG); Urine Blood 2+ (NEG); Urine Color YELLOW; Urine Glucose 1+ (NEG); Urine Microscopic Reflex ORDER UMIC; Urine Protein NEGATIVE (NEG)
[2018-02-04 06:10] LABS: Urine Bacteria <20 /HPF (<20); Urine Culture Reflex Order NOT NEEDED; Urine RBC 20-50 /HPF (NONE SEEN)
[2018-02-04 06:15] LABS: BUN Blood Urea Nitrogen 7 mg/dL (7-18); Bicarbonate 28 mmol/L (21-32); Glucose Level 227 mg/dL (74-106); Potassium 3.8 mmol/L (3.5-5.1); Sodium Level 139 mmol/L (136-145)
[2018-02-04] MEDS: INSULIN -REGULAR HUMAN 50 UNIT/0.5 ML ML SQ SCH ×4 (07:30→20:38)
[2018-02-04] MEDS: PANTOPRAZOLE 40MG TABLET PO SCH (07:30)
[2018-02-04] MEDS: ENOXAPARIN 40 MG/0.4 ML SQ SCH (09:00)
[2018-02-04] MEDS ORDERED: HOME MED 1 EA UNK (Fluoxetine Hcl [Prozac] 40 MG) PO SCH (09:00)
[2018-02-04] MEDS: FLUOXETINE 20 MG CAP PO SCH (09:00)
[2018-02-04] MEDS: GABAPENTIN 100 MG CAP PO SCH ×2 (09:00→20:30)
[2018-02-04] MEDS: NICOTINE 21 MG/PAT TD SCH (09:00)
[2018-02-04] MEDS: ASPIRIN EC 81 MG TAB PO SCH (09:00)
[2018-02-04] MEDS ORDERED: BUPIVACAINE 0.25% PF 10 ML VIAL ONE (09:07)
--- NOTE | 2018-02-04 09:49 | P.OP ---
Preoperative diagnosis: Right foot infection Postoperative diagnosis: Right foot infection Primary procedure: Incision and drainage of Right Foot infection Secondary procedure: debridement of right foot necrotic tissue Anesthesia: GETA Estimated blood loss: <5cc Specimen: cultures sent x 2 regions Findings: abscess of 4th web space by small toe, ~5cm x 3cm necrotic tissue- mid plan Complications: None Transferred to: Recovery Room Condition: Good
[2018-02-04] MEDS ORDERED: COLLAGENASE 30 GM OINTMENT TOP ONE (09:51)
[2018-02-04] MEDS: MORPHINE 4 MG/ML SYR IV PRN ×2 (11:16→16:17)
--- NOTE | 2018-02-04 11:25 | P.PN ---
Subjective Date of Service: 02/04/18 Primary Care Provider: Sunni Huff NP Chief Complaint: Right foot cellulitis, failed outpatient therapy Subjective: Doing well (Patient NPO for surgery.) Physical Examination - Vital Signs Temperature: 98.6 F Blood Pressure: 116/63 Pulse: 80 Respirations: 16 Pulse Ox (%): 97 - Physical Exam General: Alert, In no apparent distress, Oriented x3, Cooperative HEENT: Atraumatic Neck: Supple Respiratory: Clear to auscultation bilaterally, Normal air movement Cardiovascular: Normal pulses, Regular rate/rhythm Gastrointestinal: Normal bowel sounds, Soft and benign, Non-distended Musculoskeletal: No warmth Integumentary: Other (Less erythema to the foot noted. Swelling improved.) Neurological: Normal speech, Normal strength at 5/5 x4 extr, Normal tone, Normal affect - Studies Medications List Reviewed: Yes Assessment & Plan Discharge Plan: Home Plan to discharge in: 48 Hours Physician Review Additional Text: Impression: Right diabetic foot cellulitis with abscess, failed outpatient therapy Diabetes mellitus type 2, insulin dependent, uncontrolled Diabetic neuropathy Anemia likely of chronic disease Tobacco abuse Depression Insomnia Plan: Right diabetic foot cellulitis with abscess, failed outpatient therapy: Will continue with IV Levaquin and vancomycin. Pharmacy to adjust medication. X- ray shows no bony abnormality indicating osteomyelitis. Await culture results. Surgery is planned for today for irrigation and debridement. Await recommendations after surgery. Continue with DVT prophylaxis. Will physical therapy ambulate after surgery. Anticipate 1-2 more days of therapy in the hospital. Diabetes mellitus type 2, insulin dependent, uncontrolled: Will continue to adjust basal insulin for better control. Will continue to monitor and adjust appropriately. Diabetic neuropathy: Will continue with Neurontin. Will provide medication for pain. Anemia likely of chronic disease with noted iron deficiency anemia: Will monitor closely. Will start low-dose iron therapy Tobacco abuse: Will provide nicoderm. Tobacco cessation addressed Depression: Will continue with her medication-Prozac 40 mg daily Insomnia: Will provide medication-Ambien 5 mg daily. Patient also takes Elavil at night. Time Spent Managing Pts Care (In Minutes): 55
[2018-02-04] MEDS ORDERED: INSULIN -REGULAR HUMAN 50 UNIT/0.5 ML ML SQ SCH (12:00)
[2018-02-04] MEDS: VANCOMYCIN/NS 1 gm 1 GM/250 ML BAG IV SCH ×2 (13:06→23:22)
[2018-02-04] MEDS: Levofloxacin500mg IV 500 MG/100 ML BAG IV SCH (13:06)
[2018-02-04] MEDS: AMITRIPTYLINE 25 MG TAB PO SCH (20:30)
[2018-02-04] MEDS: HYDROCODONE/APAP 5/325 MG TAB PO PRN (20:31)
--- NOTE | 2018-02-04 20:54 | OP ---
Date of Procedure: 02/04/2018 Surgeon: Vijay Osborne MD, Preoperative Diagnosis: Right foot infection. Postoperative Diagnosis: Right foot infection. Procedure Performed: 1.Incision and drainage of right foot infection. 2.Debridement of right foot necrotic tissue on separate plantar wound. Anesthesia: General endotracheal. Estimated Blood Loss: 5 cc. Specimen: Cultures sent x2 regions. Findings: 1.Abscess of the fourth web space by the small toe on the medial aspect, between the fourth and fift h toes. 2.A 5 cm x 3 cm necrotic tissue on the mid plantar portion of the foot. Complications: None. Disposition: Transferred to recovery room in good condition. Procedure In Detail: After informed consent was obtained, the patient was brought to the operating r oom, prepped and draped in usual sterile fashion. After adequate anesthesia achieved, an incision wa s made in the fourth web space down through the subcutaneous tissues. Immediately encountered was fl uidic infected abscess. This was cultured and sent for both aerobic and anaerobic speciation at this time. The area was cleaned of all necrotic tissue using electrocautery and curette until all necrot ic tissue was removed, and the area was copiously irrigated multiple times until completely clear and packed with half-inch iodoform packing and sterile dressing was placed over the top. Attention was then turned to a plantar portion of the mid foot. There was an elliptical area of approximately 5 x 3 cm of necrotic tissue. The skin was unroofed from this area and the dermis was found to be necroti c at this point. The dissection continued down through the skin tissue and into the fat of the mid f oot using electrocautery. This tissue was sent off for culture as well, and necrotic tissue was lisandra malka using electrocautery and curette as well. I then cleansed the area and irrigated. Hemostasis wa s easily achieved without any additional hemostatic maneuvers. Santyl and damp-to-dry dressings were placed over this area and the entire foot was then wrapped from a distal to proximal aspect using an Joshua wrap and the foot was elevated. The patient tolerated the procedure well without evidence of co mplication and transferred to the PACU in good condition. All counts were correct at the end of the case. MALCOM/URBANO Voice ID: [id number] Report ID: [id number]
[2018-02-04] MEDS ORDERED: INSULIN GLARGINE 100 UNITS/ML SQ SCH (21:00)
[2018-02-05 06:01] LABS: Absolute Lymphocytes (CBC) 0.8 K/uL (0.7-4.9); Absolute Monocytes 0.5 K/uL (0.1-1.3); Absolute Neutrophil 3.4 K/uL (1.8-8.0); Eosinophils % 4.9 % (0-4.4)
[2018-02-05 06:21] LABS: Basophils % 0.6 % (0-1.3); Hematocrit 27.4 % (36.0-45.0); Lymphocytes % 16.6 % (15.3-44.8); MCH 29.6 pg (27.0-35.0); MCV 85.7 fL (80-100); MPV 8.5 fL (7.6-11.3); Monocytes % 10.5 % (3.3-12.3)
[2018-02-05 06:26] LABS: BUN Blood Urea Nitrogen 9 mg/dL (7-18); Bicarbonate 32 mmol/L (21-32); Glucose Level 248 mg/dL (74-106); Magnesium 1.9 mg/dL (1.8-2.4); Sodium Level 138 mmol/L (136-145)
[2018-02-05] MEDS: INSULIN -REGULAR HUMAN 50 UNIT/0.5 ML ML SQ SCH ×4 (08:26→21:00)
[2018-02-05] MEDS: NICOTINE 21 MG/PAT TD SCH (09:00)
[2018-02-05] MEDS: NA CHLORIDE 0.9% 1,000 ML IV SCH ×2 (09:54→22:21)
[2018-02-05] MEDS: ENOXAPARIN 40 MG/0.4 ML SQ SCH (09:55)
[2018-02-05] MEDS: GABAPENTIN 100 MG CAP PO SCH ×2 (09:55→22:24)
[2018-02-05] MEDS: ASPIRIN EC 81 MG TAB PO SCH (09:55)
[2018-02-05] MEDS: PANTOPRAZOLE 40MG TABLET PO SCH (09:56)
[2018-02-05] MEDS: HYDROCODONE/APAP 5/325 MG TAB PO PRN (09:56)
[2018-02-05] MEDS: FLUOXETINE 20 MG CAP PO SCH (09:56)
--- NOTE | 2018-02-05 12:35 | P.PN ---
Subjective Date of Service: 02/05/18 Primary Care Provider: Sunni Huff NP Chief Complaint: Right foot cellulitis, failed outpatient therapy Subjective: Improving Physical Examination - Vital Signs Temperature: 98.7 F Blood Pressure: 119/73 Pulse: 82 Respirations: 17 Pulse Ox (%): 94 - Physical Exam General: Alert, In no apparent distress, Oriented x3, Cooperative HEENT: Atraumatic Neck: Supple Respiratory: Clear to auscultation bilaterally, Normal air movement Cardiovascular: Normal pulses, Regular rate/rhythm Gastrointestinal: Normal bowel sounds, Soft and benign, Non-distended Musculoskeletal: No contractures Integumentary: Other (Right foot bandaged) Neurological: Normal speech, Normal strength at 5/5 x4 extr, Normal tone, Normal affect - Studies Microbiology Data (last 24 hrs): 02/02/18 11:05 Wound - Right Foot Gram Stain - Final Medications List Reviewed: Yes Assessment & Plan Discharge Plan: Home Plan to discharge in: 48 Hours Physician Review Additional Text: Impression: Right diabetic foot cellulitis with abscess, failed outpatient therapy status post irrigation and debridement of wound Diabetes mellitus type 2, insulin dependent, uncontrolled Diabetic neuropathy Anemia likely of chronic disease Tobacco abuse Depression Insomnia Plan: Right diabetic foot cellulitis with abscess, failed outpatient therapy status post irrigation and debridement of wound: Will continue with IV Levaquin and vancomycin. Surgery performed irrigation and debridement yesterday. Will teach on wound care. Will have the patient ambulate with physical therapy. Will discuss case further with surgery. Anticipate discharge in the next 1-2 days. Await culture results. Diabetes mellitus type 2, insulin dependent, uncontrolled: Will continue to adjust basal insulin for better control. Will continue to monitor and adjust appropriately. Diabetic neuropathy: Will continue with Neurontin. Will provide medication for pain. Anemia likely of chronic disease with noted iron deficiency anemia: Will monitor closely. Continue with iron Tobacco abuse: Will provide nicoderm. Tobacco cessation addressed Depression: Will continue with her medication-Prozac 40 mg daily Insomnia: Will provide medication-Ambien 5 mg daily. Patient also takes Elavil at night. Time Spent Managing Pts Care (In Minutes): 55
[2018-02-05] MEDS: Levofloxacin500mg IV 500 MG/100 ML BAG IV SCH (12:49)
[2018-02-05] MEDS: VANCOMYCIN/NS 1 gm 1 GM/250 ML BAG IV SCH (12:50)
[2018-02-05 14:01] VITALS: O2SAT 95
[2018-02-05] MEDS ORDERED: INSULIN GLARGINE 100 UNITS/ML SQ SCH (21:00)
[2018-02-05] MEDS: AMITRIPTYLINE 25 MG TAB PO SCH (22:24)
[2018-02-06] MEDS ORDERED: VANCOMYCIN 1.25 GM in NA CHLORIDE 0.9% 250 ML IVPB SCH ×2
[2018-02-06] MEDS: NA CHLORIDE 0.9% 1,000 ML IV SCH (06:11)
[2018-02-06] MEDS: ONDANSETRON 4 MG/2 ML VIAL IV PRN (06:11)
[2018-02-06] MEDS: INSULIN -REGULAR HUMAN 50 UNIT/0.5 ML ML SQ SCH (07:30)
[2018-02-06] MEDS: NICOTINE 21 MG/PAT TD SCH (08:06)
[2018-02-06] MEDS: ENOXAPARIN 40 MG/0.4 ML SQ SCH (08:23)
[2018-02-06] MEDS: ASPIRIN EC 81 MG TAB PO SCH (08:23)
[2018-02-06] MEDS: PANTOPRAZOLE 40MG TABLET PO SCH (08:23)
[2018-02-06] MEDS: FLUOXETINE 20 MG CAP PO SCH (08:24)
[2018-02-06] MEDS: GABAPENTIN 100 MG CAP PO SCH (08:24)
--- NOTE | 2018-02-06 08:54 | P.DS ---
Admission Date: 02/02/18 Discharge Date: 02/06/18 Primary Care Provider: Sunni Bloom NP Disposition: ROUTINE DISCHARGE Discharge Condition: GOOD Reason for Admission: Right foot cellulitis, failed outpatient therapy Consultations: Surgery-Dr. Osborne Procedures: Xray: FINDINGS: No fracture or dislocation is seen. Diffuse edema is present within the subcutaneous tissues. The bones are osteoporotic no bony destructive lesions seen Surgery: Date: 02/04/18 09:47 Preoperative diagnosis: Right foot infection Postoperative diagnosis: Right foot infection Primary procedure: Incision and drainage of Right Foot infection Secondary procedure: debridement of right foot necrotic tissue Anesthesia: GETA Estimated blood loss: <5cc Specimen: cultures sent x 2 regions Findings: abscess of 4th web space by small toe, ~5cm x 3cm necrotic tissue- mid plan Complications: None Transferred to: Recovery Room Condition: Good Impression: Right diabetic foot cellulitis with abscess, failed outpatient therapy status post irrigation and drainage of right foot infection with debridement of right foot necrotic tissue, Wound culture positive for Enterbacter Diabetes mellitus type 2, insulin dependent, uncontrolled, A1C 10.3 Diabetic neuropathy Anemia likely of chronic disease with iron def anemia Tobacco abuse Depression Insomnia Brief History of Present Illness: 42-year-old female presented emergency room with worsening right foot cellulitis. Patient reports that she was seen by her PCP early this week. She was provided medication for cellulitis to the right foot. She took 2 different types of antibiotics. Patient is diabetic with neuropathy. She reported that she stepped on something. Patient noted increasing pain, swelling, erythema to the right foot. She came to the ER for further evaluation. In the ER patient evaluated. White count 8.7, hemoglobin 10.7. BMP pending. X -ray shows diffuse edema to the foot. No bony abnormality noted. Chest x-ray unremarkable. Patient found to have significant right foot cellulitis/abscess. Patient admitted for treatment. When I saw the patient ER, she appeared stable. Patient had pain, erythema, swelling to the right foot. Patient reports history of diabetes type 2, insulin -dependent, depression, diabetic neuropathy and tobacco use. Hospital Course: Patient presented with right diabetic foot infection. Patient had been seen by her PCP. Patient failed outpatient therapy. Patient admitted for treatment with IV antibiotic therapy. X-ray showed no osteomyelitis. Surgery was consulted. Surgery performed irrigation and drainage of right foot infection with debridement of right foot necrotic tissue. Wound culture positive for Enterobacter. Patient improved during the course of her stay. Prior to discharge she was taught wound care. Patient getting around with crutches. At discharge she will continue with wound care as per surgery. At discharge she will continue with Bactrim DS 1 pill twice daily and doxycycline 100 mg 1 pill twice daily for 10 days. Patient will apply santyl daily to wound. Recommendation is for the patient to follow up [facility] 1 week to monitor progress and continue her care. Patient will continue with crutches and off-loading to the right foot. Patient has diabetes mellitus type 2 insulin dependent. A1c 10.3. Patient needs better control of her diabetes. Her medication was increased during her stay. At discharge she will continue with Toejeo 25 units subcu daily. Recommendation is to maintain blood sugars less than 140 fasting and less than 200 after meals. Further adjustment can be done by her PCP for better control. Patient has diabetic neuropathy. Patient started on a medication. At discharge she will continue with gabapentin 100 mg 1 pill twice daily. Patient has anemia secondary to iron deficiency. At discharge she will continue with iron 325 mg 1 pill twice daily. Recommendation to recheck CBC in 4 weeks to monitor progress. Recommendation is for the patient to see GI in the future to further address her iron deficiency anemia. Patient will likely require a EGD and colonoscopy. Patient has tobacco abuse. Tobacco cessation addressed in detail. Nicotine patch prescription will be provided. Patient with depression and insomnia. Patient will continue with her medication including Prozac 40 mg daily and Elavil 25 mg at bedtime. Further adjustment can be done by her PCP. Patient has GERD. Patient will continue with Protonix 40 mg 1 pill once daily. Recommendation for the patient follow up with GI as an outpatient to further monitor. Vital Signs/Physical Exam: Temp Pulse Resp BP Pulse Ox 98 F 89 18 134/71 92 02/06/18 04:00 02/06/18 04:00 02/06/18 04:00 02/06/18 04:00 02/06/18 04:00 General: Alert, In no apparent distress, Oriented x3, Cooperative HEENT: Atraumatic Neck: Supple Respiratory: Clear to auscultation bilaterally, Normal air movement Cardiovascular: Normal pulses, Regular rate/rhythm Gastrointestinal: Normal bowel sounds, Soft and benign, Non-distended, No tenderness, No masses, No rebound, No guarding Musculoskeletal: Other (Right foot bandaged) Neurological: Normal speech, Normal strength at 5/5 x4 extr, Normal tone, Normal affect Laboratory Data at Discharge: WBC 5.0 K/uL (4.3-10.9) 02/05/18 05:28 Hgb 9.5 g/dL (12.0-15.0) L 02/05/18 05:28 Hct 27.4 % (36.0-45.0) L 02/05/18 05:28 Plt Count 141 K/uL (152-406) L 02/05/18 05:28 PT 13.5 SECONDS (9.5-12.5) H 02/02/18 10:50 INR 1.14 02/02/18 10:50 APTT 33.2 SECONDS (24.3-36.9) 02/02/18 10:50 Sodium 138 mmol/L (136-145) 02/05/18 05:28 Potassium 4.0 mmol/L (3.5-5.1) 02/05/18 05:28 BUN 9 mg/dL (7-18) 02/05/18 05:28 Creatinine 0.50 mg/dL (0.55-1.3) L 02/05/18 05:28 Glucose 248 mg/dL (74-106) H 02/05/18 05:28 Magnesium 1.9 mg/dL (1.8-2.4) 02/05/18 05:28 Total Bilirubin 0.8 mg/dL (0.2-1.0) 02/02/18 10:50 AST 23 U/L (15-37) 02/02/18 10:50 ALT 19 U/L (12-78) 02/02/18 10:50 Alkaline Phosphatase 270 U/L (45-117) H 02/02/18 10:50 Triglycerides 76 mg/dL (<150) 02/03/18 05:09 Cholesterol 72 mg/dL (<200) 02/03/18 05:09 HDL Cholesterol 21 mg/dL (40-60) L 02/03/18 05:09 Cholesterol/HDL Ratio 3.43 02/03/18 05:09 Home Medications: Amitriptyline [Elavil*] 25 mg PO BEDTIME 02/02/18 Fluoxetine HCl [Prozac] 40 mg PO DAILY 02/02/18 Pantoprazole [Protonix Tab*] 40 mg PO DAILY 02/02/18 Aspirin [Aspirin EC 81 MG] 81 mg PO DAILY #90 tablet. 02/06/18 Jana [Santyl Ointment] 10 appl TOP DAILY #1 tube 02/06/18 Doxycycline Hyclate 100 mg PO BID #20 tablet 02/06/18 Ferrous Sulfate [Iron] 325 mg PO BID #60 tablet 02/06/18 Gabapentin [Neurontin*] 100 mg PO BID #60 cap 02/06/18 Insulin Glargine,Hum.rec.anlog [Touo Solostar] 25 unit SQ [id number] #1 insuln.pen 02/06/18 Nicotine [Nicoderm*] 21 mg TD DAILY #30 patch.td24 02/06/18 Smz./Tmp. [Bactrim Ds 800 MG/160 MG] 1 each PO BID #20 tab 02/06/18 traMADol HCL [Ultram*] 50 mg PO TID PRN #20 tab 02/06/18 New Medications: Aspirin [Aspirin EC 81 MG] 81 mg PO DAILY #90 tablet.dr Bates [Santyl Ointment] 10 appl TOP DAILY #1 tube Doxycycline Hyclate 100 mg PO BID #20 tablet Ferrous Sulfate [Iron] 325 mg PO BID #60 tablet Gabapentin [Neurontin*] 100 mg PO BID #60 cap Insulin Glargine,Hum.rec.anlog [Toujeo Solostar] 25 unit SQ [id number] #1 insuln.pen Nicotine [Nicoderm*] 21 mg TD DAILY #30 patch.td24 Smz./Tmp. [Bactrim Ds 800 MG/160 MG] 1 each PO BID #20 tab traMADol HCL [Ultram*] 50 mg PO TID PRN #20 tab PRN Reason: Pain Mild Patient Discharge Instructions: 1. Patient will need to follow up with her PCP in 1 week to follow up this hospitalization. 2. Patient presented with right diabetic foot infection. Patient had been seen by her PCP. Patient failed outpatient therapy. Patient admitted for treatment with IV antibiotic therapy. X-ray showed no osteomyelitis. Surgery was consulted. Surgery performed irrigation and drainage of right foot infection with debridement of right foot necrotic tissue. Wound culture positive for Enterobacter. Patient improved during the course of her stay. Prior to discharge she was taught wound care. Patient getting around with crutches. At discharge she will continue with wound care as per surgery. At discharge she will continue with Bactrim DS 1 pill twice daily and doxycycline 100 mg 1 pill twice daily for 10 days. Patient will apply santyl daily to wound. Recommendation is for the patient to follow up with [facility] 1 week to monitor progress and continue her care. Patient will continue with crutches and off-loading to the right foot. 3. Patient has diabetes mellitus type 2 insulin dependent. A1c 10.3. Patient needs better control of her diabetes. Her medication was increased during her stay. At discharge she will continue with Toejeo 25 units subcu daily. Recommendation is to maintain blood sugars less than 140 fasting and less than 200 after meals. Further adjustment can be done by her PCP for better control. 4. Patient has diabetic neuropathy. Patient started on a medication. At discharge she will continue with gabapentin 100 mg 1 pill twice daily. 5. Patient has anemia secondary to iron deficiency. At discharge she will continue with iron 325 mg 1 pill twice daily. Recommendation to recheck CBC in 4 weeks to monitor progress. Recommendation is for the patient to see GI in the future to further address her iron deficiency anemia. Patient will likely require a EGD and colonoscopy. 6. Patient has tobacco abuse. Tobacco cessation addressed in detail. Nicotine patch prescription will be provided. 7. Patient with depression and insomnia. Patient will continue with her medication including Prozac 40 mg daily and Elavil 25 mg at bedtime. Further adjustment can be done by her PCP. 8. Patient has GERD. Patient will continue with Protonix 40 mg 1 pill once daily. Recommendation for the patient follow up with GI as an outpatient to further monitor. Diet: Regular Activity: Ad yvon Followup: Vijay Osborne MD [ACTIVE - CAN ADMIT] - 1 Week ([facility] OSCAR BLOOM [Primary Care Provider] - 1-2 Weeks (Call for appointment.) Time spent managing pt's care (in minutes): 55
[2018-02-06 09:01] VITALS: BP 123/65; TEMP 97.7
== END 2018-02-06 11:17 | disposition home or self-care (01) | DRG 982 ==
LOC: ER 09:54 → ERHOLD 11:13 → 2ND 13:00
PROVIDERS: ADMIT Family Medicine; ATTEND Family Medicine
PROC: 0JDQ0ZZ Extraction of Right Foot Subcutaneous Tissue and Fascia, Open Approach (ICD-10-PCS; 2018-02-04)
PROC: 0J9Q0ZZ Drainage of Right Foot Subcutaneous Tissue and Fascia, Open Approach (ICD-10-PCS; principal; 2018-02-04 10:45)
DX: E11.628 Type 2 diabetes mellitus with other skin complications (principal); L03.115 Cellulitis of right lower limb; L02.611 Cutaneous abscess of right foot; B96.89 Other specified bacterial agents as the cause of diseases classified elsewhere; E11.65 Type 2 diabetes mellitus with hyperglycemia; Z79.4 Long term (current) use of insulin; E11.40 Type 2 diabetes mellitus with diabetic neuropathy, unspecified; D63.8 Anemia in other chronic diseases classified elsewhere; D50.9 Iron deficiency anemia, unspecified; F32.9 Major depressive disorder, single episode, unspecified; G47.00 Insomnia, unspecified; F17.210 Nicotine dependence, cigarettes, uncomplicated; K21.9 Gastro-esophageal reflux disease without esophagitis; Z88.0 Allergy status to penicillin
CPT/HCPCS: 36415; 71045; 80048; 80061; 80076; 80202; 81003; 81015; 81025; 82550; 82607; 82728; 82962; 83036; 83540; 83605; 83735; 84145; 84439; 84443; 84466; 85025; 85610; 85652; 85730; 86140; 87040; 87070; 87075; 87077; 87086; 87088; 87176; 87186; 87205; 93005; 96365; 96375; 97163; 99285; J1650; J2405; J2550; J3010; J3370; J3475; J3590; J7030

== ENCOUNTER 2018-02-23 10:39 | Inpatient (IN) | payer OTHER ==
[2018-02-23] MEDS ORDERED: ASPIRIN 81 MG CHEWABLE TABLET ONE (11:49)
[2018-02-23] MEDS ORDERED: ONDANSETRON 4 MG/2 ML VIAL ONE (11:49)
[2018-02-23] MEDS ORDERED: FENTANYL CITR 100 MCG/2 ML ONE (11:49)
--- NOTE | 2018-02-23 12:27 | RAD REPORT ---
EXAM DESCRIPTION: RAD - Foot Right 2 View - 02/23/2018 11:47 am CLINICAL HISTORY: Recent drainage of soft tissue wound, new soft tissue swelling right first toe, pa in COMPARISON: Right foot February 12 FINDINGS: AP and lateral views of the right foot were obtained. There is a new 3 centimeter area of soft tissue swelling medial and plantar margin of the first toe near the IP joint. No air or foreign body. Underlying bone shows no erosive or destructive process at this time. No acute fracture changes seen. Underlying osteopenic changes are present. IP joint degenerative changes are present. Along the lateral margin of the fourth MTP joint and the medial margin of the fifth MTP joint there i s decreased bone density at each metatarsal head and at each proximal phalanx. No history provided of wound at this location. The apparent lucency may be the affects of film technique and underlying ost eopenia. Osteomyelitis cannot be excluded and correlation is needed with any soft tissue wound in thi s region. IMPRESSION: Large 3 centimeter soft tissue swelling has developed near the right first toe IP joint. No air or foreign body. No underlying bone destructive process. Questionable bone loss along the lateral margin fourth MTP joint and medial margin fifth MTP joint. O steomyelitis is not excluded and correlation is needed with any localizing wound. As warranted, a focused plain film examination at this region could be performed using optimal techni que.
--- NOTE | 2018-02-23 12:28 | RAD REPORT ---
EXAM DESCRIPTION: RAD - Chest Single View - 02/23/2018 11:47 am CLINICAL HISTORY: Chest pain, preop chest examination with pending treatment of soft tissue wound COMPARISON: February 02, 2018 TECHNIQUE: AP portable chest image was obtained 1139 hours . FINDINGS: Lung volumes are low. This accentuates lung markings. No peripheral mass, consolidation or significant failure/ volume overload pattern. Heart and vasculature are normal. No measurable pleura l effusion and no pneumothorax. No acute bony abnormality seen. No acute aortic findings suspected. IMPRESSION: No acute cardiopulmonary process. Chest findings are not significantly different from comparison.
--- NOTE | 2018-02-23 12:32 | RAD REPORT ---
EXAM DESCRIPTION: RAD - Foot Left 2 View - 02/23/2018 11:47 am CLINICAL HISTORY: Foot pain, soft tissue wound not further localized COMPARISON: None. FINDINGS: AP and lateral views of the foot were obtained. The history of wound is not further locali zed. Fracture changes are present at the base of the fifth proximal phalanx. In the absence of a trau ma history, this could be a pathologic fracture from osteomyelitis if there is a wound in this region . Fifth metatarsal head is unremarkable. No air or foreign body in the soft tissues at this location. No other acute fracture changes present. The shaft and head of the second proximal phalanx show remod eling change related to old trauma. Acute bony injury at this site is not suspected. No dislocation or periosteal reaction. No air or foreign body in the soft tissues. IMPRESSION: Fracture is present at the base of the fifth proximal phalanx with no significant distra ction or angulation. No trauma history is noted. Fracture could be from occult trauma or osteomyelitis fracture if there i s a soft tissue wound near the fifth MTP joint.
[2018-02-23 12:43] LABS: Absolute Lymphocytes (CBC) 0.9 K/uL (0.7-4.9); Absolute Monocytes 0.4 K/uL (0.1-1.3); Absolute Neutrophil 2.9 K/uL (1.8-8.0); Basophils % 0.7 % (0-1.3); Eosinophils % 7.3 % (0-4.4); Hematocrit 33.3 % (36.0-45.0); Lymphocytes % 20.2 % (15.3-44.8); MPV 8.2 fL (7.6-11.3); Monocytes % 8.8 % (3.3-12.3); RBC Red Blood Cell Count 3.87 M/uL (3.86-4.86)
[2018-02-23 12:46] LABS: Protime INR 1.11
[2018-02-23 12:58] LABS: ALT/SGPT 30 U/L (12-78); AST/SGOT 59 U/L (15-37); Albumin 2.6 g/dL (3.4-5.0); Alkaline Phosphatase 299 U/L (45-117); BUN Blood Urea Nitrogen 9 mg/dL (7-18); Bicarbonate 33 mmol/L (21-32); Bilirubin Direct 0.3 mg/dL (0-0.2); Bilirubin Total 0.7 mg/dL (0.2-1.0); Glucose Level 297 mg/dL (74-106); Magnesium 1.9 mg/dL (1.8-2.4); NT PRO-BNP 45 pg/mL (<125); Potassium 3.9 mmol/L (3.5-5.1); Protein, Total 8.2 g/dL (6.4-8.2); Sodium Level 140 mmol/L (136-145); Troponin (Emerg Dept Use Only) < 0.02 ng/mL (0.0-0.045)
[2018-02-23] MEDS ORDERED: VANCOMYCIN 1 GM/250 ML BAG ONE (13:34)
[2018-02-23] MEDS ORDERED: NA CHLORIDE 0.9% 1,000 ML ONE (13:34)
--- NOTE | 2018-02-23 13:35 | EDPHYS ---
Physician Documentation [facility] Name: Rosanna York Age: 42 yrs Sex: Female : 1975 Arrival Date: 02/23/2018 Time: 10:42 Bed 16 Private MD: Petra Huff ED Physician James Arias HPI: 02/23 11:26 This 42 yrs old Female presents to ER via Wheelchair with complaints of Foot cp Blisters, chest pain. 11:26 The patient or guardian reports chest pain that is located primarily in the anterior cp chest wall. 11:26 Onset: today. The pain does not radiate. The patient presents with an abscess, cp moderate-sized. The complaints affect the right foot. Context: resulted from an unknown cause. 11:26 Patient reports having surgery on right foot earlier this month by DR Osborne due to cp infection. At f/u appt earlier this week, patient noticed "blister" on right great toe. Patient reports enlarging "blister" on right foot. 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 - Social history:: Smoking status: unknown. - Ebola Screening: : No symptoms or risks identified at this time. ROS: 11:30 Constitutional: Negative for body aches, chills, fever, poor PO intake. cp 11:30 Eyes: Negative for injury, pain, redness, and discharge. cp 11:30 Cardiovascular: Positive for chest pain. cp 11:30 ENT: Negative for drainage from ear(s), ear pain, sore throat, difficulty swallowing, cp difficulty handling secretions. 11:30 Respiratory: Negative for cough, shortness of breath, wheezing. 11:30 Abdomen/GI: Negative for abdominal pain, nausea, vomiting, and diarrhea, constipation. 11:30 Skin: Positive for cellulitis, of the right foot and left foot. 11:30 All other systems are negative. Exam: 11:45 Constitutional: The patient appears in no acute distress, alert, awake, non-toxic, well cp developed, well nourished. 11:45 Head/Face: Normocephalic, atraumatic. cp 11:45 Eyes: Periorbital structures: appear normal, Conjunctiva: normal, no exudate, no injection, Sclera: no appreciated abnormality, Lids and lashes: appear normal, bilaterally. 11:45 ENT: External ear(s): are unremarkable, Nose: is normal, Mouth: is normal, Posterior pharynx: is normal, airway is patent, no erythema, no exudate. 11:45 Chest/axilla: Inspection: normal. 11:45 Cardiovascular: Rate: normal, Rhythm: regular, Edema: is not appreciated, JVD: is not appreciated. 11:45 Respiratory: the patient does not display signs of respiratory distress, Respirations: normal, no use of accessory muscles, no retractions, no splinting, no tachypnea, labored breathing, is not present, Breath sounds: are clear throughout, no decreased breath sounds, no stridor, no wheezing. 11:45 Abdomen/GI: Exam negative for discomfort, distension, guarding, Inspection: abdomen appears normal. 11:45 Back: pain, is absent, ROM is normal. 11:45 Musculoskeletal/extremity: Extremities: noted in the right foot: erythema, swelling, tenderness, noted packed wound web space of fourth and fifth toes with mild drainage, open wound mid foot plantar surface, large bullae noted medial side right great toe, noted in the left foot: noted small bullae distal tips of multiple toes, mild advancing erythema and swelling, Pulses: noted to be 1+ in the right dorsalis pedis artery and left dorsalis pedis artery, Calf tenderness, is absent, decreased sensation. 11:45 Neuro: Orientation: to person, place \\T\\ time. Mentation: is normal, Cerebellar function: is grossly normal, Motor: moves all fours, strength is normal. Vital Signs: 11:04 Pulse 78; Resp 16; Temp 97.6; Pulse Ox 98% on R/A; Weight 62.14 kg; Height 5 ft. 6 in. la1 (167.64 cm); 11:05 BP 130 / 76; la1 12:00 BP 122 / 79; Pulse 73; Resp 16 S; Pulse Ox 98% on R/A; Pain 7/10; jl7 13:00 BP 122 / 78; Pulse 74; Resp 16 S; Pulse Ox 98% on R/A; Pain 0/10; jl7 14:30 BP 129 / 81; Pulse 73; Resp 16 S; Pulse Ox 100% on R/A; jl7 16:50 BP 125 / 79; Pulse 74; Resp 16 S; Pulse Ox 100% on R/A; jl7 11:04 Body Mass Index 22.11 (62.14 kg, 167.64 cm) la1 MDM: 11:15 Patient medically screened. cp 13:00 Data reviewed: vital signs, nurses notes, lab test result(s), EKG, radiologic studies, cp plain films. 13:00 The patient was given aspirin in the Emergency Department. cp 13:00 Physician consultation: Vijay Osborne MD was called at 13:00, regarding patient's cp condition. 13:14 Physician consultation: Zara Morris MD was called at 13:14, was contacted at 13:14, cp regarding admission, patient's condition. 02/23 11:22 Order name: Basic Metabolic Panel; Complete Time: 12:59 02/23 12:59 Interpretation: Normal except: CO2 33; GLUC 297. 02/23 11:22 Order name: CBC with Diff 02/23 12:59 Interpretation: Normal except: HGB 11.2; HCT 33.3; PLT 97; EOSINOPHIL % 7.3. 02/23 11:22 Order name: LFT's; Complete Time: 12:59 02/23 12:59 Interpretation: Normal except: AST 59; ALK 299; BILID 0.3; ALB 2.6; GLOB 5.6; A/G 0.5. 02/23 11:22 Order name: Magnesium; Complete Time: 12:59 02/23 11:22 Order name: NT PRO-BNP; Complete Time: 12:59 02/23 11:22 Order name: PT-INR; Complete Time: 12:59 02/23 11:22 Order name: Troponin (emerg Dept Use Only); Complete Time: 12:59 02/23 11:22 Order name: XRAY Chest (1 view); Complete Time: 12:44 02/23 11:29 Order name: XRAY Foot RIGHT 2 View; Complete Time: 12:44 02/23 11:29 Order name: XRAY Foot LEFT 2 View; Complete Time: 12:44 cp 02/23 13:13 Order name: US Extremity Venous W Compression Daiana cp 02/23 13:13 Order name: US LE Arterial Bilateral cp 02/23 13:40 Order name: Manual Differential EDMS 02/23 11:22 Order name: EKG; Complete Time: 11:23 cp 02/23 11:22 Order name: Cardiac monitoring; Complete Time: 12:58 cp 02/23 11:22 Order name: EKG - Nurse/Tech; Complete Time: 12:58 cp 02/23 11:22 Order name: IV Saline Lock; Complete Time: 12:58 cp 02/23 11:22 Order name: Labs collected and sent; Complete Time: 12:58 cp 02/23 11:22 Order name: O2 Per Protocol; Complete Time: 12:58 cp 02/23 11:22 Order name: O2 Sat Monitoring; Complete Time: 12:58 cp 02/23 13:11 Order name: Wound Care: pack wound between toes with santyl soaked gauze, michela wrap daiana iw feet and daiana legs up to mid calf, per Dr. Osborne; Complete Time: 16:47 Administered Medications: 11:45 Drug: Aspirin Chewable Tablet 324 mg Route: PO; jl7 12:45 Follow up: Response: No adverse reaction jl7 12:15 Drug: Zofran 4 mg Route: IVP; Site: left forearm; jl7 13:47 Follow up: Response: No adverse reaction jl7 12:17 Drug: fentaNYL (PF) 25 mcg Route: IVP; Site: left forearm; jl7 12:30 Follow up: Response: No adverse reaction; Pain is decreased jl7 13:30 Drug: NS 0.9% 1000 ml Route: IV; Rate: 1 bolus; Site: left forearm; jl7 14:30 Follow up: IV Status: Completed infusion jl7 13:31 Drug: vancoMYCIN 1 grams Route: IVPB; Infused Over: 2 hrs; Site: right forearm; jl7 15:30 Follow up: Response: No adverse reaction; IV Status: Completed infusion jl7 16:15 Drug: Santyl 250 unit/g 1 application Route: Topical; Site: wound; jl7 16:15 Drug: fentaNYL (PF) 25 mcg Route: IVP; Site: left forearm; jl7 16:51 Follow up: Response: No adverse reaction; Pain is decreased jl7 Disposition: 18:18 Co-signature as Attending Physician, James Arias MD I agree with the assessment and kdr plan of care. Disposition: 02/23/18 13:35 Hospitalization ordered by Zara Morris for Inpatient Admission. Preliminary diagnosis are Cellulitis of left lower limb, Cellulitis of right lower limb. - Bed requested for Telemetry/MedSurg (Inpatient). - Status is Inpatient Admission. jl7 - Condition is Stable. - Problem is an ongoing problem. - Symptoms have improved. UTI on Admission? No Signatures: Dispatcher [employer] EDMS Rosanna Aguilar, RN RN dw James Arias MD MD [facility] Deja Bojorquez RN RN Chris Li RN RN la1 Abner South PA PA cp Mindy Babb RN RN jl7 Corrections: (The following items were deleted from the chart) 12:57 11:31 Urine Dipstick-Ancillary ordered. [facility] 12:58 11:31 Urine Test ordered. [facility] 16:28 13:35 Hospitalization Ordered by Zara Morris MD for Inpatient Admission. Preliminary diagnosis is Cellulitis of left lower limb; Cellulitis of right lower limb. Bed requested for Telemetry/MedSurg (Inpatient). Status is Inpatient Admission. Condition is Stable. Problem is an ongoing problem. Symptoms have improved. UTI on Admission? No. cp 17:12 16:28 02/23/2018 13:35 Hospitalization Ordered by Zara Morris MD for Inpatient jl7 Admission. Preliminary diagnosis is Cellulitis of left lower limb; Cellulitis of right lower limb. Bed requested for Telemetry/MedSurg (Inpatient). Status is Inpatient Admission. Condition is Stable. Problem is an ongoing problem. Symptoms have improved. UTI on Admission? No. dw
--- NOTE | 2018-02-23 13:35 | ER ---
Nurse's Notes [facility] Name: Rosanna York Age: 42 yrs Sex: Female : 1975 Arrival Date: 02/23/2018 Time: 10:42 Bed 16 Private MD: Petra Huff Diagnosis: Cellulitis of left lower limb;Cellulitis of right lower limb Presentation: 02/23 11:01 Presenting complaint: Patient states: I had an I\T\D on my right foot earlier this month la1 with Dr jaquez and I had some blisters on the ends of my toes and I saw him on Sunday and he said they were OK but not there is a huge one on my right first toe and now I also have a wound on my left foot. Transition of care: patient was not received from another setting of care. Onset of symptoms was February 23, 2018. Risk Assessment: Do you want to hurt yourself or someone else? Patient reports no desire to harm self or others. Initial Sepsis Screen: Does the patient meet any 2 criteria? No. Patient's initial sepsis screen is negative. Does the patient have a suspected source of infection? No. Patient's initial sepsis screen is negative. Care prior to arrival: None. 11:01 Method Of Arrival: Wheelchair la1 11:01 Acuity: BRYAN 3 la1 CVICU NURSE: 16:48 LMP N/A - Post-menopause jl7 Historical: - Allergies: 11:03 PENICILLINS (Upset stomach); la1 - PMHx: 11:03 Cirrhosis; Diabetes - IDDM; Heart Murmur; Herniated disc; Hypertension; neuropathy; la1 Pancreatitis; - Immunization history:: Adult Immunizations up to date. - Social history:: Smoking status: unknown. - Ebola Screening: : No symptoms or risks identified at this time. Screenin:54 Abuse screen: Denies threats or abuse. Denies injuries from another. Nutritional jl7 screening: No deficits noted. Tuberculosis screening: No symptoms or risk factors identified. Fall Risk IV access (20 points). Total Castro Fall Scale indicates No Risk (0-24 pts). Assessment: 11:30 General: Appears in no apparent distress. uncomfortable, Behavior is calm, cooperative, jl7 appropriate for age. Pain: Complains of pain in right foot and left foot Pain does not radiate. Pain currently is 7 out of 10 on a pain scale. Quality of pain is described as throbbing, Is continuous. Pain: Complains of pain in anterior aspect of left upper chest Pain does not radiate. Pain currently is 8 out of 10 on a pain scale. Quality of pain is described as sharp, Pain began 30 min ago. Is continuous. Neuro: Level of Consciousness is awake, alert, obeys commands, Oriented to person, place, time, situation. Cardiovascular: Heart tones S1 S2 present. Cardiovascular: Patient's skin is warm and dry. Respiratory: Airway is patent Respiratory effort is even, unlabored, Respiratory pattern is regular, symmetrical, Breath sounds are clear bilaterally. GI: No signs and/or symptoms were reported involving the gastrointestinal system. : No signs and/or symptoms were reported regarding the genitourinary system. EENT: No signs and/or symptoms were reported regarding the EENT system. Derm: Skin is pink, warm \T\ dry. Fluid filled blister noted to right great toe. 12:54 Reassessment: Patient appears in no apparent distress at this time. Patient and/or jl7 family updated on plan of care and expected duration. Pain level reassessed. Patient is alert, oriented x 3, equal unlabored respirations, skin warm/dry/pink. Patient states feeling better. Patient states symptoms have improved. 14:30 Reassessment: No changes from previously documented assessment. Patient and/or family jl7 updated on plan of care and expected duration. Pain level reassessed. Patient is alert, oriented x 3, equal unlabored respirations, skin warm/dry/pink. Patient denies pain at this time. 16:15 Reassessment: premedicated pt for wound packing per MILY Buckner. jl7 Vital Signs: 11:04 Pulse 78; Resp 16; Temp 97.6; Pulse Ox 98% on R/A; Weight 62.14 kg; Height 5 ft. 6 in. la1 (167.64 cm); 11:05 BP 130 / 76; la1 12:00 BP 122 / 79; Pulse 73; Resp 16 S; Pulse Ox 98% on R/A; Pain 7/10; jl7 13:00 BP 122 / 78; Pulse 74; Resp 16 S; Pulse Ox 98% on R/A; Pain 0/10; jl7 14:30 BP 129 / 81; Pulse 73; Resp 16 S; Pulse Ox 100% on R/A; jl7 16:50 BP 125 / 79; Pulse 74; Resp 16 S; Pulse Ox 100% on R/A; jl7 11:04 Body Mass Index 22.11 (62.14 kg, 167.64 cm) la1 ED Course: 10:42 Patient arrived in ED. mr 10:42 Petra Huff is Private Physician. mr 11:03 Triage completed. la1 11:03 Arm band placed on left wrist. la1 11:11 Abner South PA is PHCP. cp 11:11 James Arias MD is Attending Physician. cp 11:30 Mindy Babb RN is Primary Nurse. jl7 11:30 Patient has correct armband on for positive identification. Bed in low position. Call jl7 light in reach. Side rails up X 1. surveillance system monitor on. Pulse ox on. NIBP on. 11:30 Warm blanket given. jl7 11:47 XRAY Chest (1 view) In Process Unspecified. EDMS 11:47 XRAY Foot RIGHT 2 View In Process Unspecified. EDMS 11:47 XRAY Foot LEFT 2 View In Process Unspecified. EDMS 12:15 Initial lab(s) drawn, by ct, sent to lab. Inserted saline lock: 20 gauge in left jl7 forearm, using aseptic technique. Blood collected. 13:34 Zara Morris MD is Hospitalizing Provider. cp 13:55 US Extremity Venous W Compression Malvin In Process Unspecified. EDMS 13:55 US LE Arterial Bilateral In Process Unspecified. EDMS 13:55 Ultrasound completed. Patient tolerated well. cy 16:15 Wound care: to cellulitis located on in bewtween right fourth and fifth toe and on jl7 bottom of right foot was cleaned with Hibiclens, irrigated with normal saline, dressed with packed with santyl soaked packing gauze, covered with gauze and right foot wrapped with an michela bandage, Patient tolerated well. Wound care: to cellulitis located on left great toe was cleaned with Hibiclens, dressed with covered with gauze and left foot wrapped with michela banadage, Patient tolerated well. 16:50 No provider procedures requiring assistance completed. Patient admitted, IV remains in jl7 place. intact, No redness/swelling at site. Administered Medications: 11:45 Drug: Aspirin Chewable Tablet 324 mg Route: PO; jl7 12:45 Follow up: Response: No adverse reaction jl7 12:15 Drug: Zofran 4 mg Route: IVP; Site: left forearm; jl7 13:47 Follow up: Response: No adverse reaction jl7 12:17 Drug: fentaNYL (PF) 25 mcg Route: IVP; Site: left forearm; jl7 12:30 Follow up: Response: No adverse reaction; Pain is decreased jl7 13:30 Drug: NS 0.9% 1000 ml Route: IV; Rate: 1 bolus; Site: left forearm; jl7 14:30 Follow up: IV Status: Completed infusion jl7 13:31 Drug: vancoMYCIN 1 grams Route: IVPB; Infused Over: 2 hrs; Site: right forearm; jl7 15:30 Follow up: Response: No adverse reaction; IV Status: Completed infusion jl7 16:15 Drug: Santyl 250 unit/g 1 application Route: Topical; Site: wound; jl7 16:15 Drug: fentaNYL (PF) 25 mcg Route: IVP; Site: left forearm; jl7 16:51 Follow up: Response: No adverse reaction; Pain is decreased jl7 Outcome: 13:35 Decision to Hospitalize by Provider. cp 17:05 Admitted to Med/surg accompanied by tech, via stretcher, room 229, with chart, Report jl7 called to LYDIA Pimentel 17:05 Condition: stable 17:05 Discharge instructions given to patient, Instructed on the need for admit, Demonstrated understanding of instructions. 17:12 Patient left the ED. jl7 Signatures: Dispatcher [facility] IVANNAWI WilliamShagufta Lee, RN RN la1 Abner South PA PA Mindy Lin RN RN jl7 Dakota Soto Corrections: (The following items were deleted from the chart) 12:55 12:49 General: Appears in no apparent distress. uncomfortable, Behavior is calm, jl7 cooperative, appropriate for age, jl7 12:55 12:49 Pain: Complains of pain in right foot and left foot Pain does not radiate. Pain jl7 currently is 7 out of 10 on a pain scale. Quality of pain is described as throbbing, Is continuous, jl7 12:55 12:49 Pain: Complains of pain in anterior aspect of left upper chest Pain does not jl7 radiate. Pain currently is 8 out of 10 on a pain scale. Quality of pain is described as sharp, Pain began 30 min ago. Is continuous, [facility] 12:49 Neuro: Level of Consciousness is awake, alert, obeys commands, Oriented to jl7 person, place, time, situation, [facility] 12:49 Cardiovascular: Patient's skin is warm and dry. 7 [facility] 12:49 Respiratory: Airway is patent Respiratory effort is even, unlabored, Respiratory [facility] pattern is regular, symmetrical, Breath sounds are clear bilaterally. [facility] : 12:49 Cardiovascular: Heart tones S1 S2 present 7 [facility] 12:49 GI: No signs and/or symptoms were reported involving the gastrointestinal system. jl7 [facility] 12:49 : No signs and/or symptoms were reported regarding the genitourinary system. [id number] : 12:49 EENT: No signs and/or symptoms were reported regarding the EENT system. 7 [facility] : 12:49 Derm: Skin is pink, warm \T\ dry. Fluid filled blister noted to right great toe 7 7
[2018-02-23 13:39] LABS: Blood Morphology Comment NOT SEEN (NOT SEEN); Platelet Estimate DECR
--- NOTE | 2018-02-23 14:09 | RAD REPORT ---
EXAM DESCRIPTION: US - Extrem Venous W Compress Malvin - 02/23/2018 1:57 pm CLINICAL HISTORY: Leg pain and swelling COMPARISON: None. TECHNIQUE: Real-time sonographic evaluation of the bilateral lower extremity common femoral, superfi cial femoral, popliteal and posterior tibial veins was performed. FINDINGS: Normal compressibility, flow augmentation, phasic flow and spontaneous flow are identified in the left and right lower extremity common femoral, superficial femoral, popliteal and posterior t ibial veins. No intraluminal filling defects seen. IMPRESSION: No DVT in either lower extremity.
--- NOTE | 2018-02-23 14:12 | RAD REPORT ---
EXAM DESCRIPTION: US - Lower Extremity Arterial Bilat - 02/23/2018 1:57 pm CLINICAL HISTORY: Leg pain, diabetes COMPARISON: None. TECHNIQUE: Grayscale and Doppler interrogation of the lower extremities performed. Waveforms were ob tained along the length of each lower extremity. Visual inspection of the lower extremity arterial tr ee performed. FINDINGS: Left lower extremity shows a triphasic waveform pattern. No suspicious waveform pattern th rough this region. Right common femoral, superficial femoral and popliteal arteries are triphasic with monophasic dorsal is pedis and posterior tibial arteries. No occlusion or focal flow restricting lesion identifiable. A therosclerotic changes are identifiable. Lower extremity peak systolic velocity values are not substa ntially different right versus left. IMPRESSION: Lower extremity peripheral vascular disease is present primarily in the distal right low er extremity. No flow restricting lesion or occlusion identified.
[2018-02-23] MEDS ORDERED: COLLAGENASE 30 GM OINTMENT TOP SCH (14:30)
[2018-02-23] MEDS ORDERED: ACETAMINOPHEN 500 MG TAB PO PRN (17:24)
[2018-02-23 17:53] VITALS: BMI 22.1
[2018-02-23] MEDS ORDERED: ENOXAPARIN 40 MG/0.4 ML SQ SCH (18:00)
[2018-02-23] MEDS: PIPER/TAZO/NS 3.375gm 3.375 GM/100 ML BAG IVPB SCH (19:10)
[2018-02-23] MEDS: NA CHLORIDE 0.9% 1,000 ML IV SCH (19:10)
[2018-02-24] MEDS: VANCOMYCIN 1.25 GM in NA CHLORIDE 0.9% 250 ML IVPB SCH ×2 (01:06→14:28)
[2018-02-24] MEDS: PIPER/TAZO/NS 3.375gm 3.375 GM/100 ML BAG IVPB SCH ×3 (01:06→17:00)
[2018-02-24] MEDS ORDERED: PIPER/TAZO/NS 3.375gm 3.375 GM/100 ML BAG ONE (01:12)
[2018-02-24 02:39] LABS: Urine Appearance CLEAR; Urine Bilirubin NEGATIVE (NEG); Urine Blood 3+ (NEG); Urine Color YELLOW; Urine Glucose TRACE (NEG); Urine Protein NEGATIVE (NEG); Urine Specific Gravity 1.015 (1.005-1.030)
[2018-02-24 02:47] LABS: Urine Microscopic Reflex ORDER UMIC
[2018-02-24 03:43] LABS: Urine Bacteria <20 /HPF (<20); Urine Culture Reflex Order NOT NEEDED; Urine RBC >50 /HPF (NONE SEEN)
[2018-02-24] MEDS: NA CHLORIDE 0.9% 1,000 ML IV SCH ×2 (04:16→13:24)
[2018-02-24 05:08] LABS: Absolute Lymphocytes (CBC) 0.5 K/uL (0.7-4.9); Absolute Monocytes 0.3 K/uL (0.1-1.3); Basophils % 2.8 % (0-1.3); Eosinophils % 7.5 % (0-4.4); Hematocrit 30.7 % (36.0-45.0); Lymphocytes % 16.1 % (15.3-44.8); MPV 8.4 fL (7.6-11.3); Monocytes % 10.6 % (3.3-12.3); RBC Red Blood Cell Count 3.53 M/uL (3.86-4.86)
[2018-02-24 05:49] LABS: ALT/SGPT 29 U/L (12-78); AST/SGOT 59 U/L (15-37); Albumin 2.3 g/dL (3.4-5.0); Alkaline Phosphatase 280 U/L (45-117); BUN Blood Urea Nitrogen 8 mg/dL (7-18); Bicarbonate 28 mmol/L (21-32); Bilirubin Total 0.6 mg/dL (0.2-1.0); Glucose Level 300 mg/dL (74-106); Phosphorus 3.4 mg/dL (2.5-4.9); Potassium 3.6 mmol/L (3.5-5.1); Protein, Total 7.1 g/dL (6.4-8.2); Sodium Level 142 mmol/L (136-145)
[2018-02-24] MEDS ORDERED: POTASSIUM CL SA 10 MEQ TAB PO ONE (06:02)
--- NOTE | 2018-02-24 06:09 | EKG ---
Test Date: 2018-02-23 Test Time: 12:06:03 Textile Finisher: SANJAY MEASUREMENT RESULTS: Intervals: Rate: 75 IN: 172 QRSD: 96 QT: 388 QTc: 433 Rumely: P: 19 IN: 172 QRS: -22 T: 45 INTERPRETIVE STATEMENTS: Normal sinus rhythm Normal ECG Compared to ECG 02/02/2018 11:14:58 Sinus arrhythmia no longer present Left-axis deviation no longer present Electronically Signed On 02-24-18 06:08:43 VP CUSTOMER SERVICE by Ruslan Chan
[2018-02-24] MEDS: INSULIN GLARGINE 100 UNITS/ML SQ SCH (09:00)
[2018-02-24] MEDS: FERROUS SULFATE 325 MG TAB PO SCH ×2 (09:27→22:06)
[2018-02-24] MEDS: GABAPENTIN 100 MG CAP PO SCH ×2 (09:27→22:06)
[2018-02-24] MEDS: FLUOXETINE 20 MG CAP PO SCH (09:28)
[2018-02-24] MEDS: PANTOPRAZOLE 40MG TABLET PO SCH (09:28)
[2018-02-24] MEDS: FENTANYL CITR 100 MCG/2 ML IV PRN ×3 (10:01→22:07)
--- NOTE | 2018-02-24 11:44 | P.HP ---
Certification for Inpatient Patient admitted to: Inpatient With expected LOS: >2 Midnights Patient will require the following post-hospital care: None Practitioner: I am a practitioner with admitting privileges, knowledge of patient current condition, hospital course, and medical plan of care. Services: Services provided to patient in accordance with Admission requirements found in Title 42 Section 412.3 of the Code of Federal Regulations Patient History Date of Service: 02/23/18 Reason for admission: Bilateral lower extremity cellulitis History of Present Illness: Patient is a 42-year-old female who was recently admitted to the hospital with cellulitis of the left lower extremity. Patient has significant erythema and swelling of the bilateral legs. It was worse on the left side. She was treated and discharged home. She saw Dr. Osborne in the hospital on her last admission. When she went home she states her legs kept getting worse. They became more erythematous. They had a blister on leg as well. She was concerned and she decided to come into the hospital for further evaluation. In the emergency room patient had labs as well as x-rays and Doppler studies. Patient has a fracture of the 5th metatarsal on the right foot. The blister was seen on the left foot x-ray but no air the soft tissues. We decided to admit the patient to the hospital for treatment with IV antibiotics. Allergies acetaminophen [From Tylenol] Allergy (Verified 02/23/18 17:24) Nausea/Vomiting Penicillins Allergy (Verified 02/23/18 17:24) Nausea/Vomiting Home Medications: Amitriptyline [Elavil*] 25 mg PO BEDTIME 02/02/18 Fluoxetine HCl [Prozac] 40 mg PO DAILY 02/02/18 Pantoprazole [Protonix Tab*] 40 mg PO [id number] 02/02/18 Gabapentin [Neurontin*] 100 mg PO BID #60 cap 02/06/18 Insulin Glargine,Hum.rec.anlog [Toujeo Solostar] 25 unit SQ [id number] #1 insuln.pen 02/06/18 Alendronate Sodium [Fosamax] 70 mg PO DIRECTED 02/23/18 Insulin Glargine,Hum.rec.anlog [Toujeo Solostar] 25 units SQ DAILY 02/23/18 Iron 65 mg PO BID 02/23/18 - Past Medical/Surgical History Has patient received pneumonia vaccine in the past: No Diabetic: Yes -: Diabetes mellitus type 2, insulin dependent -: Tobacco abuse -: Diabetic neuropathy -: Depression -: Insomnia -: neuropathy -: cirrhosis -: Cholecystectomy Psychosocial/ Personal History: Patient is . She has 5 children. 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 - Family History Mother Medical History: Heart disease, Diabetes - Social History Smoking Status: Current some day smoker Alcohol use: No CD- Drugs: No Caffeine use: No Place of Residence: Home Review of Systems 10-point ROS is otherwise unremarkable Physical Examination - Vital Signs Temperature: 97.0 F Blood Pressure: 103/60 Pulse: 56 Respirations: 17 Pulse Ox (%): 98 - Physical Exam General: Alert, In no apparent distress, Oriented x3 HEENT: Atraumatic, PERRLA, Mucous membr. moist/pink, EOMI, Sclerae nonicteric Neck: Supple, 2+ carotid pulse no bruit, No LAD, Without JVD or thyroid abnormality Respiratory: Clear to auscultation bilaterally, Normal air movement Cardiovascular: Regular rate/rhythm, Normal S1 S2, No murmurs Gastrointestinal: Normal bowel sounds, Soft and benign, Non-distended, No tenderness, No masses, No rebound Musculoskeletal: No tenderness, Erythema, Tenderness, Warmth Integumentary: Tenderness/swelling, Erythema, Warmth, Other ( Blister on the left foot) Neurological: Normal gait, Normal speech, Normal strength at 5/5 x4 extr, Normal tone, Sensation intact, Cranial nerves 3-12 intact, Normal affect Lymphatics: No axilla or inguinal lymphadenopathy - Studies Laboratory Data (last 24 hrs) 02/23/18 12:15: PT 13.1 H, INR 1.11 02/23/18 12:15: WBC 4.6, Hgb 11.2 L, Hct 33.3 L, Plt Count 97 L* 02/23/18 12:15: Sodium 140, Potassium 3.9, BUN 9, Creatinine 0.60, Glucose 297 H , Magnesium 1.9, Total Bilirubin 0.7, AST 59 H, ALT 30, Alkaline Phosphatase 299 H Assessment & Plan - Problems (Diagnosis) (1) Bilateral lower leg cellulitis Current Visit: Yes Status: Acute (2) Diabetic neuropathy Current Visit: Yes Status: Acute (3) Diabetes mellitus, type II Onset Date: 02/04/18 Current Visit: No Status: Acute (4) Thrombocytopenia Current Visit: No Status: Acute (5) Cirrhosis Onset Date: 01/15/17 Current Visit: No Status: Chronic Qualifiers: Hepatic cirrhosis type: alcoholic cirrhosis Ascites presence: without ascites Qualified Code(s): K70.30 - Alcoholic cirrhosis of liver without ascites (6) History of alcohol use Current Visit: No Status: Chronic - Plan 1. Continue with IV antibiotic 2. Continue with local wound care 3. Wound care consultation/surgical consultation 4. Gentle IV hydration 5. Monitor CBC 6. Strict blood sugar monitoring 7. Pain control 8. GI and DVT prophylaxis Discharge Plan: Home Plan to discharge in: Greater than 2 days - Advance Directives Does patient have a Living Will: No Does patient have a Durable POA for Healthcare: No - Code Status/Comfort Care Code Status Assessed: Yes Code Status: Full Code Critical Care: No Time Spent Managing PTS Care (In Minutes): 50
--- NOTE | 2018-02-24 13:01 | P.PN ---
Subjective Date of Service: 02/24/18 Chief Complaint: Bilateral lower extremity cellulitis Pt seen and examined at bedside. Chart Reviewed. Case DW with Gen Surgery. Plt this AM is down to 69. Patient otherwise doing well overall. Pain in the legs is better controlled today but swelling and erythema is worse. Review of Systems 10-point ROS is otherwise unremarkable Physical Examination - Vital Signs Temperature: 97.6 F Blood Pressure: 113/67 Pulse: 73 Respirations: 16 Pulse Ox (%): 98 - Physical Exam General: Alert, In no apparent distress HEENT: Atraumatic, PERRLA, EOMI Neck: Supple, JVD not distended Respiratory: Clear to auscultation bilaterally, Normal air movement Cardiovascular: Regular rate/rhythm, Normal S1 S2 Gastrointestinal: Normal bowel sounds, No tenderness Musculoskeletal: Swelling, Erythema, Tenderness, Warmth Integumentary: No rashes Neurological: Normal speech, Normal tone, Normal affect Lymphatics: No axilla or inguinal lymphadenopathy - Studies Laboratory Data (last 24 hrs) 02/23/18 12:15: WBC 4.6, Hgb 11.2 L, Hct 33.3 L, Plt Count 97 L* 02/23/18 12:15: Sodium 140, Potassium 3.9, BUN 9, Creatinine 0.60, Glucose 297 H , Magnesium 1.9, Total Bilirubin 0.7, AST 59 H, ALT 30, Alkaline Phosphatase 299 H Medications List Reviewed: Yes Assessment And Plan - Current Problems (Diagnosis) (1) Bilateral lower leg cellulitis Current Visit: Yes Status: Acute Plan: BL Lower Leg Cellulitis worsening and failed outpt therapy. -Pt been seen in the wound healing center by Dr Osborne for Right Foot cellulites and now Left cellulites worse as well -Started on IV abx for now -Gen Surgery consulted. Appreciate Rec -Will evaluate for possible Debridement reinaldo -US venous, Arterial Done -MRI pending (2) Thrombocytopenia Current Visit: No Status: Acute Plan: Hold lovenox. Most cr 2.2 to chronic Alcohol abuse (3) Diabetes mellitus, type II Onset Date: 02/04/18 Current Visit: No Status: Chronic Qualifiers: Diabetes mellitus termite inspector insulin use: without intermediate use Diabetes mellitus complication status: with circulatory complication Diabetes mellitus complication detail: with peripheral angiopathy with gangrene Qualified Code(s ): E11.52 - Type 2 diabetes mellitus with diabetic peripheral angiopathy with gangrene (4) Cirrhosis Onset Date: 01/15/17 Current Visit: No Status: Chronic Qualifiers: Hepatic cirrhosis type: alcoholic cirrhosis Ascites presence: without ascites Qualified Code(s): K70.30 - Alcoholic cirrhosis of liver without ascites (5) History of alcohol use Current Visit: No Status: Chronic Discharge Plan: Home Plan to discharge in: Greater than 2 days - Code Status/Comfort Care Code Status Assessed: Yes Critical Care: No
[2018-02-24] MEDS ORDERED: GLUCAGON 1 MG/VIAL IM PRN (13:57)
[2018-02-24] MEDS ORDERED: D50W 25 GM/50 ML SYRINGE IV PRN (13:57)
[2018-02-24] MEDS: INSULIN -REGULAR HUMAN 50 UNIT/0.5 ML ML SQ SCH ×2 (16:30→22:05)
[2018-02-24] MEDS: LOPERAMIDE HCL 2 MG CAPSULE PO PRN (18:00)
[2018-02-24] MEDS: AMITRIPTYLINE 25 MG TAB PO SCH (22:06)
[2018-02-25] MEDS ORDERED: PIPER/TAZO/NS 3.375gm 3.375 GM/100 ML BAG ONE (00:23)
[2018-02-25] MEDS: NA CHLORIDE 0.9% 1,000 ML IV SCH ×2 (00:25→09:24)
[2018-02-25] MEDS: PIPER/TAZO/NS 3.375gm 3.375 GM/100 ML BAG IVPB SCH ×3 (00:30→17:00)
[2018-02-25] MEDS: VANCOMYCIN 1.25 GM in NA CHLORIDE 0.9% 250 ML IVPB SCH (01:19)
[2018-02-25] MEDS: PANTOPRAZOLE 40MG TABLET PO SCH (05:52)
[2018-02-25] MEDS: ALENDRONATE 70 MG TAB PO SCH (05:53)
[2018-02-25 05:56] LABS: Absolute Lymphocytes (CBC) 0.9 K/uL (0.7-4.9); Absolute Monocytes 0.4 K/uL (0.1-1.3); Absolute Neutrophil 1.9 K/uL (1.8-8.0); Basophils % 0.5 % (0-1.3); Eosinophils % 8.5 % (0-4.4); Hematocrit 27.9 % (36.0-45.0); Lymphocytes % 24.7 % (15.3-44.8); MPV 8.9 fL (7.6-11.3); Monocytes % 10.3 % (3.3-12.3)
[2018-02-25 06:13] LABS: ALT/SGPT 25 U/L (12-78); AST/SGOT 40 U/L (15-37); Albumin 2.1 g/dL (3.4-5.0); Alkaline Phosphatase 228 U/L (45-117); BUN Blood Urea Nitrogen 7 mg/dL (7-18); Bicarbonate 28 mmol/L (21-32); Bilirubin Total 0.5 mg/dL (0.2-1.0); Glucose Level 129 mg/dL (74-106); Potassium 3.2 mmol/L (3.5-5.1); Protein, Total 6.5 g/dL (6.4-8.2); Sodium Level 143 mmol/L (136-145)
[2018-02-25] MEDS ORDERED: POTASSIUM 25 MEQ EFFERV TAB PO ONE (06:20)
[2018-02-25] MEDS: FENTANYL CITR 100 MCG/2 ML IV PRN (06:43)
[2018-02-25] MEDS: INSULIN -REGULAR HUMAN 50 UNIT/0.5 ML ML SQ SCH ×4 (07:30→21:00)
--- NOTE | 2018-02-25 09:24 | RAD REPORT ---
EXAM DESCRIPTION: MRI - Foot Right Wo Cont - 02/25/2018 8:32 am CLINICAL HISTORY: Osteomylitis COMPARISON: Foot Right 2 View dated 02/23/2018 FINDINGS: Abnormal diminished T1 marrow signal is seen involving medial base of the proximal phalanx of the fifth toe as well as the region of medial fifth metatarsal head and majority of the fourth me tatarsal head. These regions also demonstrate elevated T2/IR signal. Significant soft tissue ulcerati on is present adjacent to these regions, particularly along the plantar aspect tissues. Small bubbles of soft tissue air also likely present along the plantar aspect of foot in this location. No drainab le fluid collection. IMPRESSION: Moderate osteomyelitis is seen affecting the base of the proximal phalanx of the fifth t oe, the medial aspect of the fifth metatarsal head and the majority of the fourth metatarsal head.
--- NOTE | 2018-02-25 09:50 | RAD REPORT ---
EXAM DESCRIPTION: MRI - Foot Left Wo Cont - 02/25/2018 9:33 am CLINICAL HISTORY: Osteomylitis Soft tissue ulceration infection, evaluate for osteomyelitis COMPARISON: Foot Left 2 View dated 02/23/2018 FINDINGS: Significant abnormal marrow signal is seen involving the majority of the proximal phalanx of the fifth toe. Diminished T1 signal with elevated T2/IR signal is present. There is prominent ill- defined surrounding soft tissue. Most likely, the findings are related to underlying osteomyelitis. A fracture is present involving the base of the proximal phalanx of the fifth toe. Small calcaneal spu rs are present. No drainable fluid collections. IMPRESSION: Moderate osteomyelitis with underlying fracture suspected involving the proximal phalanx of the fifth toe as detailed.
[2018-02-25] MEDS: GABAPENTIN 100 MG CAP PO SCH ×2 (09:55→21:07)
[2018-02-25] MEDS: INSULIN GLARGINE 100 UNITS/ML SQ SCH (09:55)
[2018-02-25] MEDS: FERROUS SULFATE 325 MG TAB PO SCH ×2 (09:56→21:06)
[2018-02-25] MEDS: FLUOXETINE 20 MG CAP PO SCH (09:57)
[2018-02-25] MEDS: VANCOMYCIN 1.5 GM in NA CHLORIDE 0.9% 500 ML IVPB SCH (14:00)
--- NOTE | 2018-02-25 15:41 | P.PN ---
Subjective Date of Service: 02/25/18 Chief Complaint: Bilateral lower extremity cellulitis Subjective: Other (pain to the feet bilateral) Physical Examination - Vital Signs Temperature: 97.1 F Blood Pressure: 137/69 Pulse: 87 Respirations: 20 Pulse Ox (%): 100 - Physical Exam General: Alert, In no apparent distress, Oriented x3, Cooperative HEENT: Atraumatic Neck: Supple Respiratory: Clear to auscultation bilaterally, Normal air movement Cardiovascular: Normal pulses, Regular rate/rhythm Gastrointestinal: Normal bowel sounds, Soft and benign, Non-distended, No masses , No rebound, No guarding Integumentary: Other (Both feet wrapped. Swelling noted to both feet. Multiple bulli noted.) Neurological: Normal speech, Normal strength at 5/5 x4 extr, Normal tone, Normal affect - Studies Medications List Reviewed: Yes Assessment & Plan Discharge Plan: LTAC Plan to discharge in: 24 Hours Physician Review Additional Text: Impression: Bilateral cellulitis to the lower extremity with noted moderate osteomyelitis to the base of the proximal right phalanx on the 5th toe, medial aspect of the 5th metatarsal head, and the majority of the 4th metatarsal head along with moderate osteomyelitis with underlying fracture of the left proximal phalanx of the 5th toe Diabetes mellitus type 2, insulin dependent Peripheral vascular disease Depression with anxiety Diabetic neuropathy Thrombocytopenia likely related to alcoholic cirrhosis Alcoholic cirrhosis Hypokalemia Tobacco abuse Anemia likely of chronic disease Plan: Bilateral cellulitis to the lower extremity with noted moderate osteomyelitis to the base of the proximal right phalanx on the 5th toe, medial aspect of the 5th metatarsal head, and the majority of the 4th metatarsal head along with moderate osteomyelitis with underlying fracture of the left proximal phalanx of the 5th toe: Surgery to assess for possible surgical intervention. Will order PICC line as the patient will require long-term IV antibiotic therapy. Will consult infectious disease for recommendation. Patient will likely require long -term IV antibiotic therapy. Patient currently on vancomycin and Zosyn. Await further recommendations will consult social work faculty member for possible long-term acute care facility placement if possible. Diabetes mellitus type 2, insulin dependent: Will continue with insulin. Will monitor and adjust appropriately. Patient on sliding scale. Will check A1c. Peripheral vascular disease: Surgery reports history of peripheral vascular disease. Tobacco cessation addressed in detail. Depression with anxiety: Will continue with medication. Will monitor and adjust appropriately. Diabetic neuropathy: Will provide medication for pain. Will increase Neurontin medication. Thrombocytopenia likely related to alcoholic cirrhosis: Will monitor closely. Will hold DVT prophylaxis due to thrombocytopenia. This is likely related to her alcohol cirrhosis. Alcoholic cirrhosis: Will hold her IV fluids. Monitor closely. Will try to obtain more of her history in detail. Hypokalemia: Will continue to replace appropriately. Tobacco abuse: Tobacco cessation education provided. Anemia likely of chronic disease: Will will check iron and B12 studies. Will monitor closely Time Spent Managing Pts Care (In Minutes): 55
[2018-02-25] MEDS: LOPERAMIDE HCL 2 MG CAPSULE PO PRN (15:43)
[2018-02-25] MEDS: TRAMADOL HCL 50 MG TAB PO PRN (15:53)
[2018-02-25] MEDS: COLLAGENASE 30 GM OINTMENT TOP SCH (17:00)
[2018-02-25 17:24] LABS: Protime INR 1.06
[2018-02-25 18:04] LABS: Ferritin 62.8 ng/mL (8-388); Thyroid Stimulating Hormone 0.702 uIU/mL (0.360-3.740)
[2018-02-25] MEDS: AMITRIPTYLINE 25 MG TAB PO SCH (21:07)
--- NOTE | 2018-02-25 21:53 | CON ---
Date of Consultation: 02/25/2018 Brief History Of Present Illness: The patient is a 42-year-old female, known to me, admitted to the hospital with multiple problems of her bilateral feet, cellulitis, pain, swelling, drainage. She is known to me from a previous admission about a week and half ago where she came to me with an infectio n of the fourth web space of the right foot. Ultimately, I ended up doing an incision and drainage o f this and debridement of a plantar foot wound in addition to the collection in the fourth web space of her right foot. She had been receiving wound care, however, had been noncompliant at home. I had seen her in clinic several times over the past period of time. I saw her every once a week to andry e that wound care was being adequately performed as she had compliance issues during her hospitalizat ions. She was being somewhat noncompliant with the wound care at home as well. She had actually beg an smoking again since the surgery. She had not smoked in many months prior to this and she re-initi ated her smoking. She had not been compliant with the wound care, elevation of the feet, packing andrei quately, cleansing, and therefore she came to see me with worsening foot wounds. I prescribed her an tibiotics and ultimately she went home. I saw her in followup and she was stable at that time with s ome improvement, but then she apparently had a significant change in both feet over the course of the weekend. She had swelling, cellulitis of both feet, and came into the hospital over the weekend wit h the above stated swelling, cellulitis, and pain of bilateral feet. She had possible traumatic blis ters from kicking objects at her home on both feet and she was admitted for IV antibiotics at this [facility]. Past Medical History: Significant for diabetes, insulin-dependent diabetic neuropathy, depression, i nsomnia, neuropathy, cirrhosis, cholecystectomy. Past Surgical History: As above. I performed an incision and drainage and debridement of the right foot approximately 2 weeks ago. Allergies: TO TYLENOL AND PENICILLIN. Home Medications: Include Elavil, Prozac, Protonix, Neurontin, Jackson, Fosamax, insulin, and iron. Social History: She is . She has 5 children. 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 Family History: Mother has heart disease and diabetes. Smoking, she is a current everyday smoker. She states she only smokes few cigarettes per day. However, she denies alcohol or recreational drug use. Review of Systems: A 10-point review of systems other than HPI, denies. Physical Examination: General: At the time of my examination, she is awake, alert, and oriented. Psychiatric: She is appropriate conversive. HEENT: She is normocephalic. Sclerae are anicteric. Mucous membranes are moist. Oropharynx is raad ar. Neck: Supple. No JVD. Chest: Normal expansion and excursion. Cardiovascular: Regular rate and rhythm. Pulmonary: Clear to auscultation bilaterally. Abdomen: Soft, nontender. Focused Examination Extremities: She has blisters and hemorrhagic blood to both feet at the distal e xtent of the toes. The right great toe has a large blister, which appears to be a blood blister and the entire toe has cellulitic changes in addition to the remainder of the toes up to the mid foot. I nterestingly, the area of her previous incision is clean and without drainage. It was not packed dur ing my examination. However, there is good granulation tissue in the area. The plantar wound appear s to have some fibrinous exudate, but has granulation tissue as well and has contracted somewhat. Th ere is no evidence of active drainage or infection in these 2 parts. However, the remainder of the f oot appears to have some cellulitic changes. Focused examination of the left foot also shows blister s and what appeared to be traumatic bulla to the distal extent of the toes 1 through 3 and cellulitis and swelling with edema to the mid foot as well. She has no surgical scars in this foot. Vital Signs: Blood pressure 137/69, pulse is 87, respiratory rate 20, temperature 97.1. Laboratory Data: Her white blood cell count is 3.5, hemoglobin 9.2, hematocrit 27.9, platelet count is 77. Her neutrophils were 56%. Sodium 143, potassium 4.1, chloride 109, carbon dioxide 28, BUN 7, creatinine 0.4, glucose is 129. She was almost 300 on admission. She had imaging performed, which included bilateral foot x-rays and bilateral foot MRIs. The foot MRIs were officially read as modera te osteomyelitis with underlying fracture suspected involving the proximal phalanx of the 5th toe on the left foot. No drainable fluid collections. She had an additional MRI of the right foot, which w as officially read as moderate osteomyelitis seen affecting the base of the proximal phalanx of the 5 th toe. The medial aspect of the 5th metatarsal head and majority of the 4th metatarsal head. She h ad an extremity venous study as well which is officially read as no DVT in either lower extremity. S he had a Doppler ultrasound study as well on the , which was officially read as lower extremity p eripheral vascular disease is present primarily in the distal right lower extremity. No flow restric ting lesions or occlusions however identified. She had a chest x-ray performed, which officially yulissa d as well as no acute cardiopulmonary process. Assessment And Plan: This is a 42-year-old female, who presents with bilateral foot cellulitis, swel ling, osteomyelitis, and noncompliance with previous wound care instructions and care instructions wi th respect to nonweightbearing, wound care, smoking cessation, diabetes control, who now presents wit h bilateral osteomyelitis as described above, and cellulitis. 1.IV fluid hydration. 2.Antibiotic coverage. 3.I have explained to the patient would likely benefit from a PICC line and long-term antibiotics. I have discussed the surgical options with her and she would like to continue antibiotics at this malvin e. We will attempt to see if she can get better control of her wound care and osteomyelitis with ant ibiotic treatment first and we will get an ID consult with Dr. Garcia. However, should she fail this , I have discussed amputations with her of the affected osteomyelitic joints and ongoing wound care. She is not currently in favor of any amputations and will not submit and consider this as a surgical option at this time. However, she states that should she be unsuccessful antibiotic coverage, she w ill consider surgery at that time. I have explained the risks, benefits, alternatives of the above stated plan. The patient agrees to proceed as indicated. MALCOM/URBANO Voice ID: [id number] Report ID: [id number]
[2018-02-25] MEDS: ONDANSETRON 4 MG/2 ML VIAL IV PRN (22:13)
[2018-02-26] MEDS: PIPER/TAZO/NS 3.375gm 3.375 GM/100 ML BAG IVPB SCH ×3 (00:26→16:44)
[2018-02-26] MEDS: VANCOMYCIN 1.5 GM in NA CHLORIDE 0.9% 500 ML IVPB SCH ×2 (01:16→13:05)
[2018-02-26] MEDS ORDERED: LIDOCAINE 1% MPF 5 ML VIAL ONE (03:32)
[2018-02-26 05:23] LABS: Absolute Lymphocytes (CBC) 0.8 K/uL (0.7-4.9); Absolute Monocytes 0.4 K/uL (0.1-1.3); Eosinophils % 5.2 % (0-4.4); Hematocrit 28.7 % (36.0-45.0); Lymphocytes % 18.4 % (15.3-44.8); MPV 8.4 fL (7.6-11.3); Monocytes % 9.7 % (3.3-12.3); RBC Red Blood Cell Count 3.29 M/uL (3.86-4.86)
[2018-02-26] MEDS: PANTOPRAZOLE 40MG TABLET PO SCH (05:39)
[2018-02-26 05:44] LABS: Albumin 2.2 g/dL (3.4-5.0); Bilirubin Total 0.8 mg/dL (0.2-1.0); Potassium 3.6 mmol/L (3.5-5.1); Protein, Total 6.8 g/dL (6.4-8.2)
[2018-02-26] MEDS ORDERED: KCL 20 MEQ/100 mL IVPB 20 MEQ/100 ML BAG IV SCH (07:00)
[2018-02-26] MEDS: INSULIN -REGULAR HUMAN 50 UNIT/0.5 ML ML SQ SCH ×4 (07:30→22:30)
[2018-02-26] MEDS: COLLAGENASE 30 GM OINTMENT TOP SCH (09:00)
--- NOTE | 2018-02-26 09:00 | RAD REPORT ---
EXAM DESCRIPTION: RAD - Chest Single View - 02/26/2018 2:03 am CLINICAL HISTORY: Device placement PICC line placement COMPARISON: none FINDINGS: A PICC line has been inserted with its tip in the right atrium a couple centimeters Small pleural effusions are suspected with mild bibasilar atelectasis. A heart is normal size IMPRESSION: PICC line with its tip in the right atrium
[2018-02-26] MEDS: FERROUS SULFATE 325 MG TAB PO SCH ×2 (09:10→22:33)
[2018-02-26] MEDS: GABAPENTIN 100 MG CAP PO SCH ×2 (09:11→22:32)
[2018-02-26] MEDS: FLUOXETINE 20 MG CAP PO SCH (09:11)
[2018-02-26] MEDS: INSULIN GLARGINE 100 UNITS/ML SQ SCH (09:11)
[2018-02-26] MEDS: ONDANSETRON 4 MG/2 ML VIAL IV PRN ×2 (09:36→22:57)
--- NOTE | 2018-02-26 12:49 | P.PN ---
Subjective Date of Service: 02/26/18 Chief Complaint: Bilateral lower extremity cellulitis Subjective: Improving (no new complaints) Physical Examination - Vital Signs Temperature: 97 F Blood Pressure: 138/71 Pulse: 76 Respirations: 20 Pulse Ox (%): 100 - Physical Exam General: Alert, In no apparent distress, Cooperative Integumentary: Other (cellulitis improving, swelling improving) - Studies Medications List Reviewed: Yes Assessment And Plan - Current Problems (Diagnosis) (1) Bilateral lower leg cellulitis Onset Date: 02/25/18 Current Visit: Yes Status: Acute Plan: - recommend 6 week course of antibiotics for osteomyelitis - I have discussed surgery, but due to comorbid conditions and non-compliance, i feel surgery will not be as successful at this time Physician Review Additional Text: Impression: Bilateral cellulitis to the lower extremity with noted moderate osteomyelitis to the base of the proximal right phalanx on the 5th toe, medial aspect of the 5th metatarsal head, and the majority of the 4th metatarsal head along with moderate osteomyelitis with underlying fracture of the left proximal phalanx of the 5th toe Diabetes mellitus type 2, insulin dependent Peripheral vascular disease Depression with anxiety Diabetic neuropathy Thrombocytopenia likely related to alcoholic cirrhosis Alcoholic cirrhosis Hypokalemia Tobacco abuse Anemia likely of chronic disease Plan: Bilateral cellulitis to the lower extremity with noted moderate osteomyelitis to the base of the proximal right phalanx on the 5th toe, medial aspect of the 5th metatarsal head, and the majority of the 4th metatarsal head along with moderate osteomyelitis with underlying fracture of the left proximal phalanx of the 5th toe: Surgery to assess for possible surgical intervention. Will order PICC line as the patient will require long-term IV antibiotic therapy. Will consult infectious disease for recommendation. Patient will likely require long -term IV antibiotic therapy. Patient currently on vancomycin and Zosyn. Await further recommendations will consult social worker delinquency prevention for possible long-term acute care facility placement if possible. Diabetes mellitus type 2, insulin dependent: Will continue with insulin. Will monitor and adjust appropriately. Patient on sliding scale. Will check A1c. Peripheral vascular disease: Surgery reports history of peripheral vascular disease. Tobacco cessation addressed in detail. Depression with anxiety: Will continue with medication. Will monitor and adjust appropriately. Diabetic neuropathy: Will provide medication for pain. Will increase Neurontin medication. Thrombocytopenia likely related to alcoholic cirrhosis: Will monitor closely. Will hold DVT prophylaxis due to thrombocytopenia. This is likely related to her alcohol cirrhosis. Alcoholic cirrhosis: Will hold her IV fluids. Monitor closely. Will try to obtain more of her history in detail. Hypokalemia: Will continue to replace appropriately. Tobacco abuse: Tobacco cessation education provided. Anemia likely of chronic disease: Will will check iron and B12 studies. Will monitor closely
--- NOTE | 2018-02-26 16:26 | P.PN ---
Subjective Date of Service: 02/26/18 Primary Care Provider: Sunni Huff NP Chief Complaint: Bilateral lower extremity cellulitis Subjective: Improving Physical Examination - Vital Signs Temperature: 97 F Blood Pressure: 138/71 Pulse: 76 Respirations: 20 Pulse Ox (%): 100 - Physical Exam General: Alert, In no apparent distress, Oriented x3, Cooperative HEENT: Atraumatic Neck: Supple Respiratory: Clear to auscultation bilaterally, Normal air movement Cardiovascular: Normal pulses, Regular rate/rhythm Gastrointestinal: Normal bowel sounds, Soft and benign, Non-distended, No tenderness, No masses, No rebound, No guarding Musculoskeletal: No tenderness, No warmth Integumentary: Other (Bandages remain in place to the lower extremity) Neurological: Normal speech, Normal strength at 5/5 x4 extr, Normal tone, Normal affect - Studies Medications List Reviewed: Yes Assessment & Plan Discharge Plan: Usp Plan to discharge in: 24 Hours Physician Review Additional Text: Impression: Bilateral cellulitis to the lower extremity with noted moderate osteomyelitis to the base of the proximal right phalanx on the 5th toe, medial aspect of the 5th metatarsal head, and the majority of the 4th metatarsal head along with moderate osteomyelitis with underlying fracture of the left proximal phalanx of the 5th toe Diabetes mellitus type 2, insulin dependent Peripheral vascular disease Depression with anxiety Diabetic neuropathy Thrombocytopenia likely related to alcoholic cirrhosis Alcoholic cirrhosis Hypokalemia Tobacco abuse Anemia likely of chronic disease Plan: Bilateral cellulitis to the lower extremity with noted moderate osteomyelitis to the base of the proximal right phalanx on the 5th toe, medial aspect of the 5th metatarsal head, and the majority of the 4th metatarsal head along with moderate osteomyelitis with underlying fracture of the left proximal phalanx of the 5th toe: Spoke with surgery concerning patient. Patient not a surgical candidate at this time. Will continue with IV antibiotic therapy. Spoke with infectious disease who agrees with plan. Will try to arrange for skilled placement referral to continue IV antibiotic therapy and wound care. Will consult Dr. Medina for follow-up of care and monitoring of antibiotics at the skilled facility. Social work to help in process. Patient currently on vancomycin 1.5 g twice daily and Zosyn 3.375 g 3 times a day. Patient will need at least 46 weeks of IV antibiotic therapy. Diabetes mellitus type 2, insulin dependent: Will continue with insulin. Will monitor and adjust appropriately. Patient on sliding scale. Will check A1c. Peripheral vascular disease: Surgery reports history of peripheral vascular disease. Tobacco cessation addressed in detail. Depression with anxiety: Will continue with medication. Will monitor and adjust appropriately. Diabetic neuropathy: Will provide medication for pain. Neurontin increased. Pain well controlled.. Thrombocytopenia likely related to alcoholic cirrhosis: Will monitor closely. Will hold DVT prophylaxis due to thrombocytopenia. This is likely related to her alcohol cirrhosis. Alcoholic cirrhosis: Will hold her IV fluids. Monitor closely. Will try to obtain more of her history in detail. Hypokalemia: Will continue to replace appropriately. Tobacco abuse: Tobacco cessation education provided. Anemia likely of chronic disease: Will continue to monitor closely. Time Spent Managing Pts Care (In Minutes): 55
[2018-02-26] MEDS: LOPERAMIDE HCL 2 MG CAPSULE PO PRN (18:18)
[2018-02-26] MEDS: AMITRIPTYLINE 25 MG TAB PO SCH (21:00)
--- NOTE | 2018-02-26 21:52 | CON ---
History Of Present Illness: This is a 42-year-old female. I was consulted for lower extremity cellu litis and ulceration status post debridement. The patient has significant past medical history of di abetic neuropathy, tobacco abuse, depression, insomnia, neuropathy, cirrhosis of liver, cholecystecto my. Coming in with multiple blisters and wounds to her right foot, which has been debrided by surgic al team. Past Medical History: As per HPI. Social History: Tobacco positive, alcohol positive. Family History: Noncontributory. Medication: Zosyn and vancomycin. Review of Systems: A 10-point review was performed. Allergies: TYLENOL AND PENICILLIN. Physical Examination: General: This is a 42-year-old female, lying in bed, not in any acute cardiopulmonary distress. Vital Signs: Temperature 97, pulse 76, respiration 18, blood pressure 138/71. HEENT: Unremarkable. Neck: Supple. Lungs: Basal crackles. Heart: S1, S2. Regular. Abdomen: Soft, nontender. Bowel sounds positive. Extremity: Right foot wound noted between the fourth and fifth toe 1.8 x 0.5 x 2 cm plantar wound no cecilia, 1.8 x 1 x 0.2. Blisters are on right foot on first, second, and third and fourth phalanx, left foot blisters on first, second, and third. Laboratory Data: Shows WBC 4.6, hemoglobin 9.5, platelets are 66. Chemistry shows sodium 142, potas sium 3.6, chloride 107, bicarb 31, BUN 10, creatinine 0.8, glucose 147. Micro data blood cultures ne gative. Assessment And Plan: Multiple wounds secondary to diabetic neuropathy and diabetic ulcers, status po st debridement. Continue broad-spectrum antibiotic total course of 6 weeks. Apply Medihoney with elvis palmer to the wound site. We will follow the patient as needed. Thank you for consult. NF/MODL Voice ID: [id number] Report ID: [id number]
[2018-02-26] MEDS: TRAMADOL HCL 50 MG TAB PO PRN (22:29)
[2018-02-27] MEDS: PIPER/TAZO/NS 3.375gm 3.375 GM/100 ML BAG IVPB SCH ×3 (00:59→17:00)
[2018-02-27] MEDS: VANCOMYCIN 1.5 GM in NA CHLORIDE 0.9% 500 ML IVPB SCH ×2 (02:00→10:24)
[2018-02-27 05:09] LABS: Absolute Lymphocytes (CBC) 0.8 K/uL (0.7-4.9); Absolute Monocytes 0.5 K/uL (0.1-1.3); Absolute Neutrophil 3.5 K/uL (1.8-8.0); Basophils % 0.3 % (0-1.3); Eosinophils % 4.8 % (0-4.4); Hematocrit 27.1 % (36.0-45.0); Lymphocytes % 16.1 % (15.3-44.8); MPV 8.5 fL (7.6-11.3); Monocytes % 9.1 % (3.3-12.3); RBC Red Blood Cell Count 3.17 M/uL (3.86-4.86)
[2018-02-27 05:28] LABS: Albumin 2.1 g/dL (3.4-5.0); Bilirubin Total 0.9 mg/dL (0.2-1.0); Phosphorus 3.2 mg/dL (2.5-4.9); Potassium 3.7 mmol/L (3.5-5.1); Protein, Total 6.6 g/dL (6.4-8.2)
[2018-02-27] MEDS ORDERED: POTASSIUM 25 MEQ EFFERV TAB PO ONE (05:37)
[2018-02-27] MEDS: PANTOPRAZOLE 40MG TABLET PO SCH (06:22)
[2018-02-27] MEDS: INSULIN -REGULAR HUMAN 50 UNIT/0.5 ML ML SQ SCH ×4 (07:30→21:59)
[2018-02-27] MEDS: COLLAGENASE 30 GM OINTMENT TOP SCH (09:00)
[2018-02-27] MEDS: INSULIN GLARGINE 100 UNITS/ML SQ SCH (09:00)
[2018-02-27] MEDS: FLUOXETINE 20 MG CAP PO SCH (10:21)
[2018-02-27] MEDS: GABAPENTIN 100 MG CAP PO SCH ×2 (10:21→21:59)
[2018-02-27] MEDS: FERROUS SULFATE 325 MG TAB PO SCH ×2 (10:22→21:59)
--- NOTE | 2018-02-27 10:32 | P.PN ---
Subjective Date of Service: 02/27/18 Primary Care Provider: Sunni Huff NP Chief Complaint: Bilateral lower extremity cellulitis Subjective: Improving Physical Examination - Vital Signs Temperature: 98.4 F Blood Pressure: 116/66 Pulse: 74 Respirations: 18 Pulse Ox (%): 95 - Physical Exam General: Alert, In no apparent distress, Cooperative Musculoskeletal: Other (small improvement to bilateral feet) - Studies Medications List Reviewed: Yes Assessment And Plan - Current Problems (Diagnosis) (1) Bilateral lower leg cellulitis Onset Date: 02/25/18 Current Visit: Yes Status: Acute Plan: - recommend 6 week course of antibiotics for osteomyelitis - I have discussed surgery, but due to comorbid conditions and non-compliance, i feel surgery will not be as successful at this time Physician Review Additional Text: Impression: Bilateral cellulitis to the lower extremity with noted moderate osteomyelitis to the base of the proximal right phalanx on the 5th toe, medial aspect of the 5th metatarsal head, and the majority of the 4th metatarsal head along with moderate osteomyelitis with underlying fracture of the left proximal phalanx of the 5th toe Diabetes mellitus type 2, insulin dependent Peripheral vascular disease Depression with anxiety Diabetic neuropathy Thrombocytopenia likely related to alcoholic cirrhosis Alcoholic cirrhosis Hypokalemia Tobacco abuse Anemia likely of chronic disease Plan: Bilateral cellulitis to the lower extremity with noted moderate osteomyelitis to the base of the proximal right phalanx on the 5th toe, medial aspect of the 5th metatarsal head, and the majority of the 4th metatarsal head along with moderate osteomyelitis with underlying fracture of the left proximal phalanx of the 5th toe: Spoke with surgery concerning patient. Patient not a surgical candidate at this time. Will continue with IV antibiotic therapy. Spoke with infectious disease who agrees with plan. Will try to arrange for skilled placement referral to continue IV antibiotic therapy and wound care. Will consult Dr. Medina for follow-up of care and monitoring of antibiotics at the skilled facility. Social work to help in process. Patient currently on vancomycin 1.5 g twice daily and Zosyn 3.375 g 3 times a day. Patient will need at least 46 weeks of IV antibiotic therapy. Diabetes mellitus type 2, insulin dependent: Will continue with insulin. Will monitor and adjust appropriately. Patient on sliding scale. Will check A1c. Peripheral vascular disease: Surgery reports history of peripheral vascular disease. Tobacco cessation addressed in detail. Depression with anxiety: Will continue with medication. Will monitor and adjust appropriately. Diabetic neuropathy: Will provide medication for pain. Neurontin increased. Pain well controlled.. Thrombocytopenia likely related to alcoholic cirrhosis: Will monitor closely. Will hold DVT prophylaxis due to thrombocytopenia. This is likely related to her alcohol cirrhosis. Alcoholic cirrhosis: Will hold her IV fluids. Monitor closely. Will try to obtain more of her history in detail. Hypokalemia: Will continue to replace appropriately. Tobacco abuse: Tobacco cessation education provided. Anemia likely of chronic disease: Will continue to monitor closely.
[2018-02-27] MEDS: TRAMADOL HCL 50 MG TAB PO PRN (13:03)
[2018-02-27] MEDS: LOPERAMIDE HCL 2 MG CAPSULE PO PRN (13:03)
--- NOTE | 2018-02-27 13:46 | P.CNS ---
Date of Consult: 02/26/18 Patient is a young woman with a history of diabetes since her late 20's so approx 15 years. She was being treated by Anderson Huff. Mostly with levemir. She did have some diarrhea with max dosage metformin. States that her blood sugars average around 300. Her most recent a1c is 10.2. She was admitted for osteomyelitis. She needs a PCP to manage her antibiotics and her diabetes. She has some swelling and blistering of her feet PMH diabetes tobacco abuse. Cholecystectomy. Allergies PCN, acetaminophen [employer] AAO x3. CVS S1, S2, RRR no abnormal sounds RS LCTA. Abd Soft non tended no organomegaly EXT. Diabetic ulcers on multiple toes. She has warm extremities. a/p 1. Osteomyelitis. Will continue out patient antibiotics. 2. Diabetic ulcers of the toes. Will refer to wound care as an out patient 3. Alendronate. which is not necessary in her age group. 4. Tobacco abuse councillinus. Will discuss with her at length
--- NOTE | 2018-02-27 15:42 | P.PN ---
Subjective Date of Service: 02/27/18 Primary Care Provider: Sunni Huff NP Chief Complaint: Bilateral lower extremity cellulitis Subjective: Doing well Physical Examination - Vital Signs Temperature: 97.4 F Blood Pressure: 116/65 Pulse: 73 Respirations: 18 Pulse Ox (%): 98 - Physical Exam General: Alert, In no apparent distress, Oriented x3, Cooperative HEENT: Atraumatic Neck: Supple Respiratory: Clear to auscultation bilaterally, Normal air movement Cardiovascular: Normal pulses, Regular rate/rhythm Gastrointestinal: Normal bowel sounds, Soft and benign, Non-distended, No tenderness, No masses, No rebound, No guarding Musculoskeletal: No erythema, No tenderness, No warmth Integumentary: Other (Less swelling to the lower extremities) Neurological: Normal speech, Normal strength at 5/5 x4 extr, Normal tone, Normal affect - Studies Medications List Reviewed: Yes Assessment & Plan Discharge Plan: Snf Plan to discharge in: 24 Hours Physician Review Additional Text: Impression: Bilateral cellulitis to the lower extremity with noted moderate osteomyelitis to the base of the proximal right phalanx on the 5th toe, medial aspect of the 5th metatarsal head, and the majority of the 4th metatarsal head along with moderate osteomyelitis with underlying fracture of the left proximal phalanx of the 5th toe Diabetes mellitus type 2, insulin dependent Peripheral vascular disease Depression with anxiety Diabetic neuropathy Thrombocytopenia likely related to alcoholic cirrhosis Alcoholic cirrhosis Hypokalemia Tobacco abuse Anemia likely of chronic disease Plan: Bilateral cellulitis to the lower extremity with noted moderate osteomyelitis to the base of the proximal right phalanx on the 5th toe, medial aspect of the 5th metatarsal head, and the majority of the 4th metatarsal head along with moderate osteomyelitis with underlying fracture of the left proximal phalanx of the 5th toe: Spoke with surgery again today concerning patient. Patient not a surgical candidate at this time. Will continue with IV antibiotic therapy. Spoke with infectious disease who agrees with plan. Will try to arrange for skilled placement referral to continue IV antibiotic therapy and wound care. Spoke with Dr. Medina for follow-up of care and monitoring of antibiotics at the skilled facility. Social work to help in process. Patient currently on vancomycin 1.5 g twice daily and Zosyn 3.375 g 3 times a day. Patient will need at least 46 weeks of IV antibiotic therapy. Diabetes mellitus type 2, insulin dependent: Will continue with insulin. Will monitor and adjust appropriately. Patient on sliding scale. Will check A1c. Peripheral vascular disease: Surgery reports history of peripheral vascular disease. Tobacco cessation addressed in detail. Depression with anxiety: Will continue with medication. Will monitor and adjust appropriately. Diabetic neuropathy: Will provide medication for pain. Patient responding well to Neurontin. Pain well controlled.. Thrombocytopenia likely related to alcoholic cirrhosis: Will monitor closely. Will hold DVT prophylaxis due to thrombocytopenia. This is likely related to her alcohol cirrhosis. Alcoholic cirrhosis: Will continue to hold her IV fluids. Monitor closely. Hypokalemia: Will continue to replace appropriately. Tobacco abuse: Tobacco cessation education provided. Anemia likely of chronic disease: Will continue to monitor closely. Time Spent Managing Pts Care (In Minutes): 55
[2018-02-27] MEDS: FENTANYL CITR 100 MCG/2 ML IV PRN (19:32)
[2018-02-27] MEDS: AMITRIPTYLINE 25 MG TAB PO SCH (21:00)
[2018-02-28] MEDS: PIPER/TAZO/NS 3.375gm 3.375 GM/100 ML BAG IVPB SCH ×3 (01:31→17:38)
[2018-02-28] MEDS: VANCOMYCIN 1.5 GM in NA CHLORIDE 0.9% 500 ML IVPB SCH ×2 (03:23→20:06)
[2018-02-28] MEDS: TRAMADOL HCL 50 MG TAB PO PRN (05:01)
[2018-02-28] MEDS: PANTOPRAZOLE 40MG TABLET PO SCH (05:01)
[2018-02-28 05:19] LABS: Absolute Lymphocytes (CBC) 0.7 K/uL (0.7-4.9); Absolute Monocytes 0.6 K/uL (0.1-1.3); Absolute Neutrophil 3.6 K/uL (1.8-8.0); Basophils % 0.4 % (0-1.3); Hematocrit 27.5 % (36.0-45.0); Lymphocytes % 13.7 % (15.3-44.8); MPV 9.6 fL (7.6-11.3); Monocytes % 11.3 % (3.3-12.3); RBC Red Blood Cell Count 3.19 M/uL (3.86-4.86)
[2018-02-28 05:34] LABS: Albumin 2.2 g/dL (3.4-5.0); Bilirubin Total 0.7 mg/dL (0.2-1.0); Potassium 3.8 mmol/L (3.5-5.1); Protein, Total 6.7 g/dL (6.4-8.2)
[2018-02-28] MEDS ORDERED: POTASSIUM 25 MEQ EFFERV TAB PO ONE (06:06)
[2018-02-28] MEDS: INSULIN -REGULAR HUMAN 50 UNIT/0.5 ML ML SQ SCH ×4 (07:30→21:00)
[2018-02-28] MEDS: INSULIN GLARGINE 100 UNITS/ML SQ SCH (09:00)
[2018-02-28] MEDS: GABAPENTIN 100 MG CAP PO SCH ×2 (09:06→20:05)
[2018-02-28] MEDS: FERROUS SULFATE 325 MG TAB PO SCH ×2 (09:06→20:05)
[2018-02-28] MEDS: FLUOXETINE 20 MG CAP PO SCH (09:07)
[2018-02-28] MEDS: COLLAGENASE 30 GM OINTMENT TOP SCH (09:11)
[2018-02-28] MEDS: FENTANYL CITR 100 MCG/2 ML IV PRN ×2 (09:17→18:03)
[2018-02-28] MEDS: LOPERAMIDE HCL 2 MG CAPSULE PO PRN ×2 (09:21→17:42)
[2018-02-28] MEDS: ONDANSETRON 4 MG/2 ML VIAL IV PRN (09:53)
--- NOTE | 2018-02-28 13:18 | P.PN ---
Subjective Date of Service: 02/28/18 Primary Care Provider: Sunni Huff NP Chief Complaint: Bilateral lower extremity cellulitis Subjective: No new changes Review of Systems 10-point ROS is otherwise unremarkable Physical Examination - Vital Signs Temperature: 97.2 F Blood Pressure: 139/74 Pulse: 79 Respirations: 18 Pulse Ox (%): 98 - Physical Exam General: Alert, In no apparent distress HEENT: Atraumatic, PERRLA, EOMI Neck: Supple, JVD not distended Respiratory: Clear to auscultation bilaterally, Normal air movement Cardiovascular: Regular rate/rhythm, Normal S1 S2 Gastrointestinal: Normal bowel sounds, No tenderness Musculoskeletal: No tenderness Integumentary: No rashes Neurological: Normal speech, Normal tone, Normal affect Lymphatics: No axilla or inguinal lymphadenopathy - Studies Medications List Reviewed: Yes Assessment & Plan - Problems (Diagnosis) (1) Tobacco abuse counseling Current Visit: Yes Status: Acute Plan: Discussed smoking cessation. She has not smoked in the hospital. Discussed setting a quit date, weaning and nicotine replacement (2) Bilateral lower leg cellulitis Onset Date: 02/25/18 Current Visit: Yes Status: Acute Plan: Will need to follow in wound care (3) Diabetes mellitus, type II Onset Date: 02/04/18 Current Visit: No Status: Chronic Plan: Will continue levermir. Restart low dose metformin. 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 Diabetes mellitus complication status: with circulatory complication Diabetes mellitus complication detail: with peripheral angiopathy with gangrene Qualified Code(s ): E11.52 - Type 2 diabetes mellitus with diabetic peripheral angiopathy with gangrene Discharge Plan: Home - Code Status/Comfort Care Code Status Assessed: No Code Status: Full Code Physician Review Additional Text: Impression: Bilateral cellulitis to the lower extremity with noted moderate osteomyelitis to the base of the proximal right phalanx on the 5th toe, medial aspect of the 5th metatarsal head, and the majority of the 4th metatarsal head along with moderate osteomyelitis with underlying fracture of the left proximal phalanx of the 5th toe Diabetes mellitus type 2, insulin dependent Peripheral vascular disease Depression with anxiety Diabetic neuropathy Thrombocytopenia likely related to alcoholic cirrhosis Alcoholic cirrhosis Hypokalemia Tobacco abuse Anemia likely of chronic disease Plan: Bilateral cellulitis to the lower extremity with noted moderate osteomyelitis to the base of the proximal right phalanx on the 5th toe, medial aspect of the 5th metatarsal head, and the majority of the 4th metatarsal head along with moderate osteomyelitis with underlying fracture of the left proximal phalanx of the 5th toe: Spoke with surgery again today concerning patient. Patient not a surgical candidate at this time. Will continue with IV antibiotic therapy. Spoke with infectious disease who agrees with plan. Will try to arrange for skilled placement referral to continue IV antibiotic therapy and wound care. Spoke with Dr. Medina for follow-up of care and monitoring of antibiotics at the skilled facility. Social work to help in process. Patient currently on vancomycin 1.5 g twice daily and Zosyn 3.375 g 3 times a day. Patient will need at least 46 weeks of IV antibiotic therapy. Diabetes mellitus type 2, insulin dependent: Will continue with insulin. Will monitor and adjust appropriately. Patient on sliding scale. Will check A1c. Peripheral vascular disease: Surgery reports history of peripheral vascular disease. Tobacco cessation addressed in detail. Depression with anxiety: Will continue with medication. Will monitor and adjust appropriately. Diabetic neuropathy: Will provide medication for pain. Patient responding well to Neurontin. Pain well controlled.. Thrombocytopenia likely related to alcoholic cirrhosis: Will monitor closely. Will hold DVT prophylaxis due to thrombocytopenia. This is likely related to her alcohol cirrhosis. Alcoholic cirrhosis: Will continue to hold her IV fluids. Monitor closely. Hypokalemia: Will continue to replace appropriately. Tobacco abuse: Tobacco cessation education provided. Anemia likely of chronic disease: Will continue to monitor closely. Critical Care: No Time Spent Managing Pts Care (In Minutes): 20
--- NOTE | 2018-02-28 16:38 | P.PN ---
Subjective Date of Service: 02/28/18 Primary Care Provider: Sunni Huff NP Chief Complaint: Bilateral lower extremity cellulitis Subjective: Doing well Physical Examination - Vital Signs Temperature: 97.2 F Blood Pressure: 139/74 Pulse: 79 Respirations: 18 Pulse Ox (%): 98 - Physical Exam General: Alert, In no apparent distress, Oriented x3, Cooperative HEENT: Atraumatic Neck: Supple Respiratory: Clear to auscultation bilaterally, Normal air movement Cardiovascular: Normal pulses, Regular rate/rhythm Gastrointestinal: Normal bowel sounds, Soft and benign, Non-distended, No tenderness, No masses, No rebound, No guarding Neurological: Normal speech, Normal strength at 5/5 x4 extr, Normal tone - Studies Medications List Reviewed: Yes Assessment & Plan Discharge Plan: Alf Plan to discharge in: 24 Hours Physician Review Additional Text: Impression: Bilateral cellulitis to the lower extremity with noted moderate osteomyelitis to the base of the proximal right phalanx on the 5th toe, medial aspect of the 5th metatarsal head, and the majority of the 4th metatarsal head along with moderate osteomyelitis with underlying fracture of the left proximal phalanx of the 5th toe Diabetes mellitus type 2, insulin dependent Peripheral vascular disease Depression with anxiety Diabetic neuropathy Thrombocytopenia likely related to alcoholic cirrhosis Alcoholic cirrhosis Hypokalemia Tobacco abuse Anemia likely of chronic disease Plan: Bilateral cellulitis to the lower extremity with noted moderate osteomyelitis to the base of the proximal right phalanx on the 5th toe, medial aspect of the 5th metatarsal head, and the majority of the 4th metatarsal head along with moderate osteomyelitis with underlying fracture of the left proximal phalanx of the 5th toe: Patient not a surgical candidate. Will continue with with current IV antibiotic therapy. Await placement for continued IV antibiotic therapy for 6 weeks. Patient currently on vancomycin 1.5 g twice daily and Zosyn 3.375 g 3 times a day. Diabetes mellitus type 2, insulin dependent: Will continue with insulin. Will monitor and adjust appropriately. Patient on sliding scale. Peripheral vascular disease: Surgery reports history of peripheral vascular disease. Tobacco cessation addressed in detail. Depression with anxiety: Will continue with medication. Will monitor and adjust appropriately. Diabetic neuropathy: Will provide medication for pain. Patient responding well to Neurontin. Pain well controlled.. Thrombocytopenia likely related to alcoholic cirrhosis: Will monitor closely. Will hold DVT prophylaxis due to thrombocytopenia. This is likely related to her alcohol cirrhosis. Alcoholic cirrhosis: Will continue to hold her IV fluids. Monitor closely. Hypokalemia: Will continue to replace appropriately. Tobacco abuse: Tobacco cessation education provided. Anemia likely of chronic disease: Will continue to monitor closely. Time Spent Managing Pts Care (In Minutes): 55
[2018-02-28] MEDS: AMITRIPTYLINE 25 MG TAB PO SCH (20:05)
[2018-03-01] MEDS: PIPER/TAZO/NS 3.375gm 3.375 GM/100 ML BAG IVPB SCH ×3 (01:52→17:35)
[2018-03-01] MEDS: PANTOPRAZOLE 40MG TABLET PO SCH (05:33)
[2018-03-01 05:46] LABS: Potassium 3.7 mmol/L (3.5-5.1)
[2018-03-01] MEDS ORDERED: POTASSIUM 25 MEQ EFFERV TAB PO ONE (06:00)
[2018-03-01] MEDS: INSULIN -REGULAR HUMAN 50 UNIT/0.5 ML ML SQ SCH ×4 (07:30→21:26)
[2018-03-01] MEDS: COLLAGENASE 30 GM OINTMENT TOP SCH (09:00)
[2018-03-01] MEDS: INSULIN GLARGINE 100 UNITS/ML SQ SCH (09:00)
[2018-03-01] MEDS: GABAPENTIN 100 MG CAP PO SCH ×2 (10:29→21:19)
[2018-03-01] MEDS: FERROUS SULFATE 325 MG TAB PO SCH ×2 (10:29→21:19)
[2018-03-01] MEDS: FLUOXETINE 20 MG CAP PO SCH (10:29)
[2018-03-01] MEDS: LOPERAMIDE HCL 2 MG CAPSULE PO PRN (14:19)
[2018-03-01] MEDS: TRAMADOL HCL 50 MG TAB PO PRN (14:19)
[2018-03-01] MEDS: VANCOMYCIN 1.5 GM in NA CHLORIDE 0.9% 500 ML IVPB SCH (14:19)
--- NOTE | 2018-03-01 16:25 | P.PN ---
Subjective Date of Service: 03/01/18 Primary Care Provider: Sunni Huff NP Chief Complaint: Bilateral lower extremity cellulitis Subjective: Doing well Physical Examination - Vital Signs Temperature: 97.6 F Blood Pressure: 120/71 Pulse: 76 Respirations: 17 Pulse Ox (%): 94 - Physical Exam General: Alert, In no apparent distress, Oriented x3, Cooperative HEENT: Atraumatic Neck: Supple Respiratory: Clear to auscultation bilaterally, Normal air movement Cardiovascular: Normal pulses, Regular rate/rhythm Gastrointestinal: Normal bowel sounds, Soft and benign, Non-distended, No tenderness, No masses, No rebound, No guarding Musculoskeletal: No erythema, No tenderness, No warmth Neurological: Normal speech, Normal strength at 5/5 x4 extr, Normal tone - Studies Medications List Reviewed: Yes Assessment & Plan Discharge Plan: Home Physician Review Additional Text: Impression: Bilateral cellulitis to the lower extremity with noted moderate osteomyelitis to the base of the proximal right phalanx on the 5th toe, medial aspect of the 5th metatarsal head, and the majority of the 4th metatarsal head along with moderate osteomyelitis with underlying fracture of the left proximal phalanx of the 5th toe Diabetes mellitus type 2, insulin dependent Peripheral vascular disease Depression with anxiety Diabetic neuropathy Thrombocytopenia likely related to alcoholic cirrhosis Alcoholic cirrhosis Hypokalemia Tobacco abuse Anemia likely of chronic disease Plan: Bilateral cellulitis to the lower extremity with noted moderate osteomyelitis to the base of the proximal right phalanx on the 5th toe, medial aspect of the 5th metatarsal head, and the majority of the 4th metatarsal head along with moderate osteomyelitis with underlying fracture of the left proximal phalanx of the 5th toe: Patient is doing well. No complaints. Patient not a surgical candidate. Will continue with with current IV antibiotic therapy. Await placement for continued IV antibiotic therapy for 6 weeks. Patient currently on vancomycin 1.5 g twice daily and Zosyn 3.375 g 3 times a day. Awaiting approval for placement Diabetes mellitus type 2, insulin dependent: Will continue with insulin. Will monitor and adjust appropriately. Patient on sliding scale. Peripheral vascular disease: Surgery reports history of peripheral vascular disease. Tobacco cessation addressed in detail. Depression with anxiety: Will continue with medication. Will monitor and adjust appropriately. Diabetic neuropathy: Will provide medication for pain. Patient responding well to Neurontin. Pain well controlled.. Thrombocytopenia likely related to alcoholic cirrhosis: Will monitor closely. Will hold DVT prophylaxis due to thrombocytopenia. This is likely related to her alcohol cirrhosis. Alcoholic cirrhosis: Will continue to hold her IV fluids. Monitor closely. Hypokalemia: Will continue to replace appropriately. Tobacco abuse: Tobacco cessation education provided. Anemia likely of chronic disease: Will continue to monitor closely. Time Spent Managing Pts Care (In Minutes): 55
[2018-03-01] MEDS: FENTANYL CITR 100 MCG/2 ML IV PRN ×2 (17:35→21:20)
[2018-03-01] MEDS: AMITRIPTYLINE 25 MG TAB PO SCH (21:20)
[2018-03-02] MEDS: PIPER/TAZO/NS 3.375gm 3.375 GM/100 ML BAG IVPB SCH ×3 (00:09→17:09)
[2018-03-02] MEDS: FENTANYL CITR 100 MCG/2 ML IV PRN ×4 (01:49→19:53)
[2018-03-02] MEDS: PANTOPRAZOLE 40MG TABLET PO SCH (05:33)
[2018-03-02 05:36] LABS: Potassium 4.3 mmol/L (3.5-5.1)
[2018-03-02] MEDS: INSULIN -REGULAR HUMAN 50 UNIT/0.5 ML ML SQ SCH ×4 (07:30→20:59)
[2018-03-02] MEDS: VANCOMYCIN 1.5 GM in NA CHLORIDE 0.9% 500 ML IVPB SCH ×2 (09:00→10:36)
[2018-03-02] MEDS: COLLAGENASE 30 GM OINTMENT TOP SCH (09:00)
[2018-03-02] MEDS: FLUOXETINE 20 MG CAP PO SCH (10:33)
[2018-03-02] MEDS: INSULIN GLARGINE 100 UNITS/ML SQ SCH (10:34)
[2018-03-02] MEDS: LOPERAMIDE HCL 2 MG CAPSULE PO PRN (10:34)
[2018-03-02] MEDS: GABAPENTIN 100 MG CAP PO SCH ×2 (10:34→20:07)
[2018-03-02] MEDS: FERROUS SULFATE 325 MG TAB PO SCH ×2 (10:34→20:07)
--- NOTE | 2018-03-02 14:37 | P.PN ---
Subjective Date of Service: 03/02/18 Primary Care Provider: Sunni Huff NP Chief Complaint: Bilateral lower extremity cellulitis Subjective: Doing well Physical Examination - Vital Signs Temperature: 97 F Blood Pressure: 116/62 Pulse: 75 Respirations: 20 Pulse Ox (%): 96 - Physical Exam General: Alert, In no apparent distress, Oriented x3, Cooperative HEENT: Atraumatic Neck: Supple Respiratory: Clear to auscultation bilaterally, Normal air movement Cardiovascular: Normal pulses, Regular rate/rhythm Gastrointestinal: Normal bowel sounds, Soft and benign, Non-distended, No tenderness, No masses, No rebound, No guarding Musculoskeletal: Other (Bandage to the lower extremities) Neurological: Normal speech, Normal strength at 5/5 x4 extr, Normal tone, Normal affect - Studies Medications List Reviewed: Yes Assessment & Plan Discharge Plan: Detention Plan to discharge in: 48 Hours Physician Review Additional Text: Impression: Bilateral cellulitis to the lower extremity with noted moderate osteomyelitis to the base of the proximal right phalanx on the 5th toe, medial aspect of the 5th metatarsal head, and the majority of the 4th metatarsal head along with moderate osteomyelitis with underlying fracture of the left proximal phalanx of the 5th toe Diabetes mellitus type 2, insulin dependent Peripheral vascular disease Depression with anxiety Diabetic neuropathy Thrombocytopenia likely related to alcoholic cirrhosis Alcoholic cirrhosis Hypokalemia Tobacco abuse Anemia likely of chronic disease Plan: Bilateral cellulitis to the lower extremity with noted moderate osteomyelitis to the base of the proximal right phalanx on the 5th toe, medial aspect of the 5th metatarsal head, and the majority of the 4th metatarsal head along with moderate osteomyelitis with underlying fracture of the left proximal phalanx of the 5th toe: Patient is doing well. No complaints. Will have physical therapy assess ambulation. 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 Patient not a surgical candidate. Will continue with with current IV antibiotic therapy. Await placement for continued IV antibiotic therapy for 6 weeks. Patient currently on vancomycin 1.5 g twice daily and Zosyn 3.375 g 3 times a day. Awaiting approval for placement Diabetes mellitus type 2, insulin dependent: Will continue with insulin. Will monitor and adjust appropriately. Patient on sliding scale. Peripheral vascular disease: Surgery reports history of peripheral vascular disease. Tobacco cessation addressed in detail. Depression with anxiety: Will continue with medication. Will monitor and adjust appropriately. Diabetic neuropathy: Will continue to provide medication for pain. Patient responding well to Neurontin. Pain well controlled.. Thrombocytopenia likely related to alcoholic cirrhosis: Will monitor closely. Will hold DVT prophylaxis due to thrombocytopenia. This is likely related to her alcohol cirrhosis. Alcoholic cirrhosis: Will continue to hold her IV fluids. Monitor closely. Hypokalemia: Will continue to replace appropriately. Tobacco abuse: Tobacco cessation education provided. Anemia likely of chronic disease: Will continue to monitor closely. Time Spent Managing Pts Care (In Minutes): 55
[2018-03-02] MEDS: AMITRIPTYLINE 25 MG TAB PO SCH (20:07)
[2018-03-02] MEDS: ONDANSETRON 4 MG/2 ML VIAL IV PRN (21:10)
[2018-03-03] MEDS: PIPER/TAZO/NS 3.375gm 3.375 GM/100 ML BAG IVPB SCH ×4 (00:10→23:59)
[2018-03-03] MEDS: PANTOPRAZOLE 40MG TABLET PO SCH (05:50)
[2018-03-03] MEDS: FENTANYL CITR 100 MCG/2 ML IV PRN ×2 (05:50→10:48)
[2018-03-03] MEDS: INSULIN -REGULAR HUMAN 50 UNIT/0.5 ML ML SQ SCH ×4 (07:30→21:22)
[2018-03-03] MEDS: INSULIN GLARGINE 100 UNITS/ML SQ SCH (09:18)
[2018-03-03] MEDS: FLUOXETINE 20 MG CAP PO SCH (09:19)
[2018-03-03] MEDS: FERROUS SULFATE 325 MG TAB PO SCH ×2 (09:19→21:20)
[2018-03-03] MEDS: GABAPENTIN 100 MG CAP PO SCH ×3 (09:19→21:20)
[2018-03-03] MEDS: COLLAGENASE 30 GM OINTMENT TOP SCH (09:20)
--- NOTE | 2018-03-03 12:27 | P.PN ---
Subjective Date of Service: 03/03/18 Primary Care Provider: Sunni Huff NP Chief Complaint: Bilateral lower extremity cellulitis Subjective: Improving Physical Examination - Vital Signs Temperature: 97.5 F Blood Pressure: 136/72 Pulse: 73 Respirations: 18 Pulse Ox (%): 95 - Physical Exam General: Alert, In no apparent distress, Cooperative Musculoskeletal: Other (wounds are improving, demarcating, dressings clean and dry) - Studies Medications List Reviewed: Yes Assessment And Plan - Current Problems (Diagnosis) (1) Bilateral lower leg cellulitis Onset Date: 02/25/18 Current Visit: Yes Status: Acute Plan: - recommend 6 week course of antibiotics for osteomyelitis - I have discussed surgery, but due to comorbid conditions and non-compliance, i feel surgery will not be as successful at this time - continue wound care Physician Review Additional Text: Impression: Bilateral cellulitis to the lower extremity with noted moderate osteomyelitis to the base of the proximal right phalanx on the 5th toe, medial aspect of the 5th metatarsal head, and the majority of the 4th metatarsal head along with moderate osteomyelitis with underlying fracture of the left proximal phalanx of the 5th toe Diabetes mellitus type 2, insulin dependent Peripheral vascular disease Depression with anxiety Diabetic neuropathy Thrombocytopenia likely related to alcoholic cirrhosis Alcoholic cirrhosis Hypokalemia Tobacco abuse Anemia likely of chronic disease Plan: Bilateral cellulitis to the lower extremity with noted moderate osteomyelitis to the base of the proximal right phalanx on the 5th toe, medial aspect of the 5th metatarsal head, and the majority of the 4th metatarsal head along with moderate osteomyelitis with underlying fracture of the left proximal phalanx of the 5th toe: Patient is doing well. No complaints. Will have physical therapy assess ambulation. 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 Patient not a surgical candidate. Will continue with with current IV antibiotic therapy. Await placement for continued IV antibiotic therapy for 6 weeks. Patient currently on vancomycin 1.5 g twice daily and Zosyn 3.375 g 3 times a day. Awaiting approval for placement Diabetes mellitus type 2, insulin dependent: Will continue with insulin. Will monitor and adjust appropriately. Patient on sliding scale. Peripheral vascular disease: Surgery reports history of peripheral vascular disease. Tobacco cessation addressed in detail. Depression with anxiety: Will continue with medication. Will monitor and adjust appropriately. Diabetic neuropathy: Will continue to provide medication for pain. Patient responding well to Neurontin. Pain well controlled.. Thrombocytopenia likely related to alcoholic cirrhosis: Will monitor closely. Will hold DVT prophylaxis due to thrombocytopenia. This is likely related to her alcohol cirrhosis. Alcoholic cirrhosis: Will continue to hold her IV fluids. Monitor closely. Hypokalemia: Will continue to replace appropriately. Tobacco abuse: Tobacco cessation education provided. Anemia likely of chronic disease: Will continue to monitor closely.
--- NOTE | 2018-03-03 15:10 | P.PN ---
Subjective Date of Service: 03/03/18 Primary Care Provider: Sunni Huff NP Chief Complaint: Bilateral lower extremity cellulitis Subjective: Doing well Physical Examination - Vital Signs Temperature: 97.5 F Blood Pressure: 136/72 Pulse: 73 Respirations: 18 Pulse Ox (%): 95 - Physical Exam General: Alert, In no apparent distress, Oriented x3, Cooperative HEENT: Atraumatic Neck: Supple Respiratory: Clear to auscultation bilaterally, Normal air movement Cardiovascular: Normal pulses, Regular rate/rhythm Gastrointestinal: Normal bowel sounds, Soft and benign, Non-distended, No tenderness, No masses, No rebound, No guarding Integumentary: Other (Bandages in place) Neurological: Normal speech, Normal strength at 5/5 x4 extr, Normal tone - Studies Medications List Reviewed: Yes Assessment & Plan Discharge Plan: Jail Plan to discharge in: 24 Hours Physician Review Additional Text: Impression: Bilateral cellulitis to the lower extremity with noted moderate osteomyelitis to the base of the proximal right phalanx on the 5th toe, medial aspect of the 5th metatarsal head, and the majority of the 4th metatarsal head along with moderate osteomyelitis with underlying fracture of the left proximal phalanx of the 5th toe Diabetes mellitus type 2, insulin dependent Peripheral vascular disease Depression with anxiety Diabetic neuropathy Thrombocytopenia likely related to alcoholic cirrhosis Alcoholic cirrhosis Hypokalemia Tobacco abuse Anemia likely of chronic disease Plan: Bilateral cellulitis to the lower extremity with noted moderate osteomyelitis to the base of the proximal right phalanx on the 5th toe, medial aspect of the 5th metatarsal head, and the majority of the 4th metatarsal head along with moderate osteomyelitis with underlying fracture of the left proximal phalanx of the 5th toe: Patient is doing well. Will increase Neurontin to 300 mg 1 pill twice daily for neuropathy. Will have physical therapy continue to work with patient. 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 Patient not a surgical candidate. Will continue with with current IV antibiotic therapy. Await placement for continued IV antibiotic therapy for 6 weeks. Patient currently on vancomycin 1.5 g twice daily and Zosyn 3.375 g 3 times a day. Awaiting approval for placement. I will turn the service over to Dr. Morris tomorrow. I will go over the plan of care with her. Diabetes mellitus type 2, insulin dependent: Will continue with insulin. Will monitor and adjust appropriately. Patient on sliding scale. Peripheral vascular disease: Surgery reports history of peripheral vascular disease. Tobacco cessation addressed in detail. Depression with anxiety: Will continue with medication. Will monitor and adjust appropriately. Diabetic neuropathy: Will continue to provide medication for pain. Patient responding well to Neurontin. Will increase Neurontin to 300 mg 1 pill twice daily. Thrombocytopenia likely related to alcoholic cirrhosis: Will monitor closely. Will hold DVT prophylaxis due to thrombocytopenia. This is likely related to her alcohol cirrhosis. Alcoholic cirrhosis: Will continue to hold her IV fluids. Monitor closely. Hypokalemia: Will continue to replace appropriately. Tobacco abuse: Tobacco cessation education provided. Anemia likely of chronic disease: Will continue to monitor closely. Time Spent Managing Pts Care (In Minutes): 55
[2018-03-03] MEDS: TRAMADOL HCL 50 MG TAB PO PRN (16:54)
[2018-03-03] MEDS: VANCOMYCIN 1.5 GM in NA CHLORIDE 0.9% 500 ML IVPB SCH (21:00)
[2018-03-03] MEDS: AMITRIPTYLINE 25 MG TAB PO SCH (21:20)
[2018-03-04] MEDS: TRAMADOL HCL 50 MG TAB PO PRN ×2 (04:11→15:27)
[2018-03-04] MEDS: PANTOPRAZOLE 40MG TABLET PO SCH (05:24)
[2018-03-04] MEDS: ALENDRONATE 70 MG TAB PO SCH (06:00)
[2018-03-04] MEDS ORDERED: MORPHINE 4 MG/ML SYR IV ONE (07:25)
[2018-03-04] MEDS: INSULIN -REGULAR HUMAN 50 UNIT/0.5 ML ML SQ SCH ×4 (07:30→20:49)
--- NOTE | 2018-03-04 08:56 | RAD REPORT ---
EXAM DESCRIPTION: RAD - Hip Right 2 View - 03/04/2018 8:14 am CLINICAL HISTORY: Right hip pain status post fall FINDINGS: Intertrochanteric/subtrochanteric fracture involves the right femur with marked angulation present at the fracture site. Moderate displacement fracture fragments. No dislocation seen Dr. Morris notified 8:50 a.m. March 04, 2018
[2018-03-04] MEDS: INSULIN GLARGINE 100 UNITS/ML SQ SCH (09:00)
[2018-03-04] MEDS: GABAPENTIN 100 MG CAP PO SCH ×2 (10:50→20:44)
[2018-03-04] MEDS: PIPER/TAZO/NS 3.375gm 3.375 GM/100 ML BAG IVPB SCH ×2 (10:51→17:00)
[2018-03-04] MEDS: FLUOXETINE 20 MG CAP PO SCH (10:51)
[2018-03-04] MEDS: LOPERAMIDE HCL 2 MG CAPSULE PO PRN (10:51)
[2018-03-04] MEDS: FERROUS SULFATE 325 MG TAB PO SCH ×2 (10:51→20:44)
[2018-03-04 12:25] LABS: Absolute Lymphocytes (CBC) 0.5 K/uL (0.7-4.9); Absolute Monocytes 0.6 K/uL (0.1-1.3); Absolute Neutrophil 7.9 K/uL (1.8-8.0); Basophils % 0.3 % (0-1.3); Eosinophils % 0.5 % (0-4.4); Hematocrit 25.3 % (36.0-45.0); Lymphocytes % 5.3 % (15.3-44.8); MPV 9.3 fL (7.6-11.3); RBC Red Blood Cell Count 2.93 M/uL (3.86-4.86)
[2018-03-04 12:28] LABS: Protime INR 1.19
[2018-03-04 12:36] LABS: Albumin 2.1 g/dL (3.4-5.0); Potassium 4.5 mmol/L (3.5-5.1); Protein, Total 6.6 g/dL (6.4-8.2)
[2018-03-04 12:43] LABS: Magnesium 2.3 mg/dL (1.8-2.4)
[2018-03-04] MEDS: ONDANSETRON 4 MG/2 ML VIAL IV PRN (14:39)
--- NOTE | 2018-03-04 14:52 | RAD REPORT ---
EXAM DESCRIPTION: RAD - Chest Single View - 03/04/2018 2:41 pm CLINICAL HISTORY: low oxygen sats Chest pain. COMPARISON: Chest Single View dated 02/26/2018; Chest Single View dated 02/23/2018; Chest Single Vie w dated 02/02/2018; Chest Pa And Lat (2 Views) dated 03/16/2017 FINDINGS: Portable technique limits examination quality. The lungs are underinflated with increased right basilar opacification since prior study, suggesting aspiration/developing pneumonia. Heart size is upper limit of normal. Left-sided PICC line has tip in the SVC.
[2018-03-04 14:54] LABS: Anisocytosis 1+; Blood Morphology Comment NOTED (NOT SEEN); Hypochromasia 1+; Platelet Estimate DECR; Toxic Granulation NOTED
--- NOTE | 2018-03-04 15:10 | EKG ---
Test Date: 2018-03-04 Test Time: 14:19:03 Transit Mix Operator: DANNA MEASUREMENT RESULTS: Intervals: Rate: 92 TN: 174 QRSD: 94 QT: 358 QTc: 442 [place]: P: 48 TN: 174 QRS: -15 T: 44 INTERPRETIVE STATEMENTS: Normal sinus rhythm NOrmal ECG Compared to ECG 02/23/2018 12:06:03 no significant change from previous ECG Electronically Signed On 03-04-18 15:09:26 SERVICE MANAGER by Ruslan Chan
[2018-03-04] MEDS: COLLAGENASE 30 GM OINTMENT TOP SCH (15:29)
--- NOTE | 2018-03-04 16:23 | P.PN ---
Subjective Date of Service: 03/04/18 Primary Care Provider: Sunni Huff NP Chief Complaint: Bilateral lower extremity cellulitis Pt seen and examined at bedside. Chart Reviewed. Case DW with Gen Surgery. Patient AM had a fall in the bathroom. Patient's x-ray of the right hip consist of femur fracture and. Orthopedic has been consulted. Patient does complain of having pain to the right side where she fell. Patient does have generalized weakness at this time Review of Systems 10-point ROS is otherwise unremarkable Physical Examination - Vital Signs Temperature: 99.6 F Blood Pressure: 90/51 Pulse: 84 Respirations: 16 Pulse Ox (%): 92 - Physical Exam General: Alert, In no apparent distress HEENT: Atraumatic, PERRLA, EOMI Neck: Supple, JVD not distended Respiratory: Clear to auscultation bilaterally, Normal air movement Cardiovascular: Regular rate/rhythm, Normal S1 S2 Gastrointestinal: Normal bowel sounds, No tenderness Musculoskeletal: Swelling, Erythema, Tenderness, Warmth Integumentary: Skin lesion, Tenderness/swelling, Erythema, Warmth Neurological: Normal speech, Normal tone, Normal affect Lymphatics: No axilla or inguinal lymphadenopathy - Studies Medications List Reviewed: Yes Assessment And Plan - Current Problems (Diagnosis) (1) Fall Current Visit: Yes Status: Acute Plan: S/p fall in the hospital -Fall precaution given -Currently NWB BL LE -No Lovenox due to Thrombocytopenia -Continue to monitor Qualifiers: Encounter type: initial encounter Qualified Code(s): W19.XXXA - Unspecified fall, initial encounter (2) Right femoral fracture Current Visit: Yes Status: Acute Plan: Right Femoral Fracture S.p Fall -Orthopedics consulted. Awaiting reccs -Will F.u with Ortho Qualifiers: Encounter type: initial encounter Femur location: intertrochanteric Fracture type: closed Fracture alignment: nondisplaced Qualified Code(s): S72.144A - Nondisplaced intertrochanteric fracture of right femur, initial encounter for closed fracture (3) Bilateral lower leg cellulitis Onset Date: 02/25/18 Current Visit: Yes Status: Acute Plan: BL Lower Leg Cellulitis worsening and failed outpt therapy. -Pt been seen in the wound healing center by Dr Osborne for Right Foot cellulites and now Left cellulites worse as well -continue IV antibiotics at this time -Gen Surgery consulted. Appreciate Reccs -MRI consistent with osteomyelitis of the feet -will follow up with surgery for further recommendations at this time. (4) Thrombocytopenia Onset Date: 02/25/18 Current Visit: No Status: Acute Plan: Hold lovenox. 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 Will follow up with general surgery and orthopedic due to recent fall. Continue IV antibiotics at this time. Discharge Plan: Home Plan to discharge in: 48 Hours - Code Status/Comfort Care Code Status Assessed: Yes Critical Care: No
--- NOTE | 2018-03-04 17:30 | RAD REPORT ---
EXAM DESCRIPTION: us - UPPER EXTREMITY VENOUS UNILATE - 03/04/2018 5:10 pm CLINICAL HISTORY: Left arm pain COMPARISON: None FINDINGS: Left internal jugular, subclavian, axillary, brachial, basilic, cephalic, radial and ulnar veins demonstrate phasic blood flow and are compressible. Doppler demonstrates good blood flow. IMPRESSION: No evidence of thrombus involving the veins of the left upper extremity
[2018-03-04] MEDS ORDERED: MORPHINE 2 MG/ML SYR IV PRN (19:14)
[2018-03-04] MEDS: AMITRIPTYLINE 25 MG TAB PO SCH (20:40)
[2018-03-04] MEDS: HYDROMORPHONE HCL 1 MG/ML INJ IV PRN (21:51)
[2018-03-05] MEDS: PIPER/TAZO/NS 3.375gm 3.375 GM/100 ML BAG IVPB SCH ×4 (00:12→23:57)
[2018-03-05] MEDS: PANTOPRAZOLE 40MG TABLET PO SCH (05:20)
[2018-03-05] MEDS: INSULIN -REGULAR HUMAN 50 UNIT/0.5 ML ML SQ SCH ×4 (07:30→20:11)
[2018-03-05] MEDS: INSULIN GLARGINE 100 UNITS/ML SQ SCH (08:34)
[2018-03-05] MEDS: HYDROMORPHONE HCL 1 MG/ML INJ IV PRN (08:43)
[2018-03-05] MEDS: FLUOXETINE 20 MG CAP PO SCH (09:00)
[2018-03-05] MEDS: GABAPENTIN 100 MG CAP PO SCH ×2 (09:00→20:10)
[2018-03-05] MEDS: VANCOMYCIN 1.5 GM in NA CHLORIDE 0.9% 500 ML IVPB SCH (09:00)
[2018-03-05] MEDS: FERROUS SULFATE 325 MG TAB PO SCH ×2 (09:00→20:10)
[2018-03-05 09:13] LABS: Absolute Lymphocytes (CBC) 0.9 K/uL (0.7-4.9); Absolute Neutrophil 7.4 K/uL (1.8-8.0); Basophils % 0.6 % (0-1.3); Eosinophils % 1.5 % (0-4.4); Hematocrit 21.9 % (36.0-45.0); Monocytes % 10.7 % (3.3-12.3); RBC Red Blood Cell Count 2.52 M/uL (3.86-4.86)
[2018-03-05 09:15] LABS: Protime INR 1.23
[2018-03-05 09:29] LABS: Albumin 1.9 g/dL (3.4-5.0); Bilirubin Total 0.9 mg/dL (0.2-1.0); Potassium 4.7 mmol/L (3.5-5.1); Protein, Total 6.4 g/dL (6.4-8.2)
[2018-03-05] MEDS: COLLAGENASE 30 GM OINTMENT TOP SCH (09:30)
--- NOTE | 2018-03-05 09:52 | P.PN ---
Subjective Date of Service: 03/05/18 Primary Care Provider: Sunni Huff NP Chief Complaint: Bilateral lower extremity cellulitis Subjective: Improving (improving, had fall with hip fracture yesterday) Physical Examination - Vital Signs Temperature: 97.3 F Blood Pressure: 86/53 Pulse: 84 Respirations: 18 Pulse Ox (%): 90 - Physical Exam General: In no apparent distress, Cooperative Integumentary: Other (wounds improving, no cellulitis, bullae present - smaller , demarcated well, ) - Studies Medications List Reviewed: Yes Assessment And Plan - Current Problems (Diagnosis) (1) Bilateral lower leg cellulitis Onset Date: 02/25/18 Current Visit: Yes Status: Acute Plan: - recommend 6 week course of antibiotics for osteomyelitis - I have discussed surgery, but due to comorbid conditions and non-compliance, i feel surgery will not be as successful at this time - due for surgery today with Dr. Keller by report. - continue wound care Physician Review Additional Text: Impression: Bilateral cellulitis to the lower extremity with noted moderate osteomyelitis to the base of the proximal right phalanx on the 5th toe, medial aspect of the 5th metatarsal head, and the majority of the 4th metatarsal head along with moderate osteomyelitis with underlying fracture of the left proximal phalanx of the 5th toe Diabetes mellitus type 2, insulin dependent Peripheral vascular disease Depression with anxiety Diabetic neuropathy Thrombocytopenia likely related to alcoholic cirrhosis Alcoholic cirrhosis Hypokalemia Tobacco abuse Anemia likely of chronic disease Plan: Bilateral cellulitis to the lower extremity with noted moderate osteomyelitis to the base of the proximal right phalanx on the 5th toe, medial aspect of the 5th metatarsal head, and the majority of the 4th metatarsal head along with moderate osteomyelitis with underlying fracture of the left proximal phalanx of the 5th toe: Patient is doing well. Will increase Neurontin to 300 mg 1 pill twice daily for neuropathy. Will have physical therapy continue to work with patient. 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 Patient not a surgical candidate. Will continue with with current IV antibiotic therapy. Await placement for continued IV antibiotic therapy for 6 weeks. Patient currently on vancomycin 1.5 g twice daily and Zosyn 3.375 g 3 times a day. Awaiting approval for placement. I will turn the service over to Dr. Morris tomorrow. I will go over the plan of care with her. Diabetes mellitus type 2, insulin dependent: Will continue with insulin. Will monitor and adjust appropriately. Patient on sliding scale. Peripheral vascular disease: Surgery reports history of peripheral vascular disease. Tobacco cessation addressed in detail. Depression with anxiety: Will continue with medication. Will monitor and adjust appropriately. Diabetic neuropathy: Will continue to provide medication for pain. Patient responding well to Neurontin. Will increase Neurontin to 300 mg 1 pill twice daily. Thrombocytopenia likely related to alcoholic cirrhosis: Will monitor closely. Will hold DVT prophylaxis due to thrombocytopenia. This is likely related to her alcohol cirrhosis. Alcoholic cirrhosis: Will continue to hold her IV fluids. Monitor closely. Hypokalemia: Will continue to replace appropriately. Tobacco abuse: Tobacco cessation education provided. Anemia likely of chronic disease: Will continue to monitor closely.
[2018-03-05] MEDS ORDERED: NA CHLORIDE 0.9% 1,000 ML ONE (15:54)
[2018-03-05] MEDS ORDERED: TRANEXAMIC ACID 1,000 MG in NA CHLORIDE 0.9% 50 ML IV ONE (15:58)
[2018-03-05] MEDS ORDERED: CLINDAMYCIN INJ 600 MG in NA CHLORIDE 0.9% 50 ML IV ONE (16:00)
[2018-03-05] MEDS ORDERED: FENTANYL CITR 100 MCG/2 ML ONE (16:24)
[2018-03-05] MEDS ORDERED: PROPOFOL 200 MG/20 ML VIAL IV ONE (16:25)
--- NOTE | 2018-03-05 16:36 | P.PN ---
Subjective Date of Service: 03/05/18 Primary Care Provider: Sunni Huff NP Chief Complaint: Bilateral lower extremity cellulitis Pt seen and examined at bedside. Chart Reviewed. Case DW with Gen Surgery. Overnight patient has no complaints to offer. This morning however patient is complaining of having some excruciating pain. Is currently scheduled for or procedure with orthopedics today. Review of Systems 10-point ROS is otherwise unremarkable Physical Examination - Vital Signs Temperature: 98.2 F Blood Pressure: 104/53 Pulse: 79 Respirations: 16 Pulse Ox (%): 91 - Physical Exam General: Alert, In no apparent distress HEENT: Atraumatic, PERRLA, EOMI Neck: Supple, JVD not distended Respiratory: Clear to auscultation bilaterally, Normal air movement Cardiovascular: Regular rate/rhythm, Normal S1 S2 Gastrointestinal: Normal bowel sounds, No tenderness Musculoskeletal: No tenderness Integumentary: No rashes Neurological: Normal speech, Normal tone, Normal affect Lymphatics: No axilla or inguinal lymphadenopathy - Studies Medications List Reviewed: Yes Assessment And Plan - Current Problems (Diagnosis) (1) Fall Current Visit: Yes Status: Acute Plan: S/p fall in the hospital -Fall precaution given -Currently NWB BL LE -No Lovenox due to Thrombocytopenia -Continue to monitor Qualifiers: Encounter type: initial encounter Qualified Code(s): W19.XXXA - Unspecified fall, initial encounter (2) Right femoral fracture Current Visit: Yes Status: Acute Plan: Right Femoral Fracture S.p Fall -Orthopedics consulted. Appreciate Reccs -Plan for Surgical Pinning today with Ortho -F.u post procedure Qualifiers: Encounter type: initial encounter Femur location: intertrochanteric Fracture type: closed Fracture alignment: nondisplaced Qualified Code(s): S72.144A - Nondisplaced intertrochanteric fracture of right femur, initial encounter for closed fracture (3) Bilateral lower leg cellulitis Onset Date: 02/25/18 Current Visit: Yes Status: Acute Plan: BL Lower Leg Cellulitis worsening and failed outpt therapy. -Pt been seen in the wound healing center by Dr Osborne for Right Foot cellulites and now Left cellulites worse as well -continue IV antibiotics at this time -Gen Surgery consulted. Appreciate Reccs -MRI consistent with osteomyelitis of the feet -will follow up with surgery for further recommendations at this time. (4) Thrombocytopenia Onset Date: 02/25/18 Current Visit: No Status: Acute Plan: Hold lovenox. 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: without dedicated intermodal truck driver use Diabetes mellitus complication status: with circulatory complication Diabetes mellitus complication detail: with peripheral angiopathy with gangrene Qualified Code(s ): E11.52 - Type 2 diabetes mellitus with diabetic peripheral angiopathy with gangrene (6) Cirrhosis Onset Date: 01/15/17 Current Visit: No Status: Chronic Qualifiers: Hepatic cirrhosis type: alcoholic cirrhosis Ascites presence: without ascites Qualified Code(s): K70.30 - Alcoholic cirrhosis of liver without ascites (7) History of alcohol use Current Visit: No Status: Chronic - Plan Patient pending improvement at this time. Planned for surgical Procedure today Discharge Plan: Other Plan to discharge in: 72 Hours - Code Status/Comfort Care Code Status Assessed: Yes Critical Care: No
[2018-03-05] MEDS ORDERED: ONDANSETRON HCL 40 MG/20 ML VIAL ONE (17:02)
[2018-03-05] MEDS ORDERED: DEXAMETHASONE 10 MG/ML VIAL ONE (17:02)
[2018-03-05] MEDS ORDERED: EPHEDRINE SULF 50 MG/10 ML SYR ONE (17:29)
--- NOTE | 2018-03-05 18:06 | P.BOP ---
Preoperative diagnosis: right proximal femur fracture Postoperative diagnosis: same Primary procedure: right open/closed reduction with intramedullary fixation Estimated blood loss: 100ccs Anesthesia: General Complications: None Transferred to: Recovery Room Condition: Good
[2018-03-05] MEDS: AMITRIPTYLINE 25 MG TAB PO SCH (20:10)
[2018-03-06] MEDS: FENTANYL CITR 100 MCG/2 ML IV PRN ×2 (00:05→04:50)
--- NOTE | 2018-03-06 00:25 | CON ---
Date of Consultation: 03/05/2018 History Of Present Illness: This is my first time seeing this patient to my knowledge. She unfortun ately has significant medical problems including diabetes as well as bilateral diabetic ulcers, suppo sedly with osteomyelitis. However, I am not treating her for these. Unfortunately, she fell injurin g her right lower extremity. X-rays were taken which demonstrated a complex subtrochanteric femur fr acture on the right. Physical Examination: Both of her feet are addressed and treated by another physician. Her right leg is externally rotated and shortened with complaints of pain with any manipulation or movement of the right hip. She denie s any other significant injury. Assessment/plan: X-rays were reviewed, which revealed a proximal femur fracture, at least subtroch. There may be some comminuted segments which are difficult to assess without placing her in traction. However, I think this would be very painful for her and I do not think that this would change the o perative plan, which is for a closed versus open reduction with intramedullary or other fixation. Ri sks, benefits, and alternatives have been discussed with the patient. She says she understands thing s as presented and wished to proceed. Most likely, we will plan on doing this after she is cleared, which will probably be this afternoon. /URBANO Voice ID: [id number] Report ID: [id number]
--- NOTE | 2018-03-06 04:51 | OP ---
Date of Procedure: 03/05/2018 Surgeon: Naman Keller MD Preoperative Diagnosis: Right hip comminuted intertrochanteric and subtrochanteric femur fracture. Postoperative Diagnosis: Right hip comminuted intertrochanteric and subtrochanteric femur fracture. Procedure: Combination of open and closed reduction with intramedullary jenny fixation using the Biome t cephalomedullary nail. Estimated Blood Loss: 100 cc. Complications: There are no complications. Specimen: No pathology specimen sent. Indication For Operation: Ms. York is a 42-year-old female who unfortunately has multiple medical problems. She also has sores on her feet from diabetes, also may be suffering from some degree of d iabetic neuropathy as well as other medical problems, which are detailed in the H and P. Unfortunate ly, she fell injuring her right lower extremity. X-rays were taken which demonstrated a grossly disp laced subtrochanteric fracture that did appear to have some intertrochanteric extension. Risks, bene fits, and alternatives to this have been discussed with the patient. She says she understands things as presented. This is a challenging patient as well as challenging fracture pattern. Description Of Procedure: The patient was taken to the operating room and placed in supine position. General anesthesia was obtained by the staff. Following this, she was then placed on the fracture table and her feet are secured as carefully as possible as she does have a history of difficulties wi th her feet. Following this, a closed reduction maneuver as well as traction was done and this does align the fractures fairly good. The right lower extremity was then prepped and draped in the usual sterile fashion. Predicted placement of the cephalomedullary screws is mapped on the skin and a vert ical incision is made in this area, which leads down more or less directly to the fracture site, whic h could have been exploited for the cephalomedullary screws. Regardless, this allows for the use of a bone hook as well as a manual reduction techniques to help reduce this into a good position also as an aid in assessing rotation as this is quite difficult in these fractures. Appeared to have an ext remely good lateral. The AP was fairly good as well. There may have been some interposing fracture fragments which are keeping it from the anatomic release but this is very hard to do in these fractur es. Following this, a standard incision was taken up carefully above the greater trochanter. The st elviaing awl was used in a medial fashion and a guidewire was then placed across fracture site without difficulty. It is then judged to be of the appropriate length and this length was recorded. Followi ng this, the beamer hand is then used to ream down near the fracture site followed by sequentially re aming with the fracture in the best position of reduction possible to a size 11 nail, 130 degrees was selected. It was then placed. There was slight displacement as the nail was going across the fract ure site but the best could be accomplished. After this, the 2 cephalomedullary screws were placed i n standard fashion. Rotation is checked and traction is applied and removed trying to line the fract ure up as best as possible on the C-arm as well as also with palpation of the finger. Once the best reduction was obtained, a perfect [place] technique was then used into the distal interlocking hole. This was performed without any difficulty whatsoever. Following these, the wounds were copiously irr igated and the fascia was closed in a watertight fashion using heavy Vicryl sutures, was followed by closure of skin with Vicryl followed by lyly. The patient was then placed in Aquacel dressing, aw akened and taken to recovery room in good condition. There were no complications. /URBANO Voice ID: [id number] Report ID: [id number]
[2018-03-06] MEDS: PANTOPRAZOLE 40MG TABLET PO SCH (06:02)
[2018-03-06] MEDS: INSULIN -REGULAR HUMAN 50 UNIT/0.5 ML ML SQ SCH ×5 (07:30→21:44)
[2018-03-06] MEDS: COLLAGENASE 30 GM OINTMENT TOP SCH (09:00)
[2018-03-06] MEDS: INSULIN GLARGINE 100 UNITS/ML SQ SCH (09:00)
[2018-03-06] MEDS: GABAPENTIN 100 MG CAP PO SCH ×2 (09:18→21:43)
[2018-03-06] MEDS: FLUOXETINE 20 MG CAP PO SCH (09:19)
[2018-03-06] MEDS: FERROUS SULFATE 325 MG TAB PO SCH ×2 (09:19→21:43)
[2018-03-06] MEDS: PIPER/TAZO/NS 3.375gm 3.375 GM/100 ML BAG IVPB SCH ×2 (09:20→17:31)
[2018-03-06 10:41] LABS: Absolute Lymphocytes (CBC) 0.3 K/uL (0.7-4.9); Absolute Monocytes 0.3 K/uL (0.1-1.3); Absolute Neutrophil 6.9 K/uL (1.8-8.0); Basophils % 0.2 % (0-1.3); Hematocrit 23.2 % (36.0-45.0); Lymphocytes % 3.9 % (15.3-44.8); MPV 9.2 fL (7.6-11.3); RBC Red Blood Cell Count 2.64 M/uL (3.86-4.86)
--- NOTE | 2018-03-06 10:54 | RAD REPORT ---
EXAM DESCRIPTION: RAD - Hip In Or - 03/05/2018 6:15 pm CLINICAL HISTORY: Right femoral fracture. FINDINGS: Multiple intraoperative spot fluoroscopic images demonstrate compression screw and intramedullary ro d affixing a right femoral fracture. The fluoroscopy time 5.1 minutes. Seventy-five fluoroscopic spot images obtained.
[2018-03-06 11:02] LABS: Urine White Blood Cell Casts OK
[2018-03-06 11:03] LABS: Blood Morphology Comment NOTED (NOT SEEN); Hypochromasia 1+; Platelet Estimate DECR
[2018-03-06 11:05] LABS: Albumin 1.8 g/dL (3.4-5.0); Bilirubin Total 0.6 mg/dL (0.2-1.0); Potassium 4.5 mmol/L (3.5-5.1); Protein, Total 6.3 g/dL (6.4-8.2)
[2018-03-06] MEDS: TRAMADOL HCL 50 MG TAB PO PRN ×2 (11:44→18:19)
--- NOTE | 2018-03-06 15:00 | P.PN ---
Subjective Date of Service: 03/06/18 Primary Care Provider: Sunni Huff NP Chief Complaint: Bilateral lower extremity cellulitis Pt seen and examined at bedside. Chart Reviewed. Case DW with Gen Surgery. Overnight patient has no complaints to offer. Currently working with physical therapy. Awaiting placement at this time Review of Systems 10-point ROS is otherwise unremarkable Physical Examination - Vital Signs Temperature: 97.3 F Blood Pressure: 131/80 Pulse: 79 Respirations: 18 Pulse Ox (%): 94 - Physical Exam General: Alert, In no apparent distress HEENT: Atraumatic, PERRLA, EOMI Neck: Supple, JVD not distended Respiratory: Clear to auscultation bilaterally, Normal air movement Cardiovascular: Regular rate/rhythm, Normal S1 S2 Gastrointestinal: Normal bowel sounds, No tenderness Musculoskeletal: No tenderness Integumentary: No rashes Neurological: Normal speech, Normal tone, Normal affect Lymphatics: No axilla or inguinal lymphadenopathy - Studies Medications List Reviewed: Yes Assessment And Plan - Current Problems (Diagnosis) (1) Fall Current Visit: Yes Status: Acute Plan: S/p fall in the hospital -Fall precaution given -Currently NWB BL LE -No Lovenox due to Thrombocytopenia -Continue to monitor Qualifiers: Encounter type: initial encounter Qualified Code(s): W19.XXXA - Unspecified fall, initial encounter (2) Right femoral fracture Current Visit: Yes Status: Acute Plan: Right Femoral Fracture S.p Fall -Orthopedics consulted. Appreciate Reccs -status post open reduction and fixation day 1 -doing well Qualifiers: Encounter type: initial encounter Femur location: intertrochanteric Fracture type: closed Fracture alignment: nondisplaced Qualified Code(s): S72.144A - Nondisplaced intertrochanteric fracture of right femur, initial encounter for closed fracture (3) Bilateral lower leg cellulitis Onset Date: 02/25/18 Current Visit: Yes Status: Acute Plan: BL Lower Leg Cellulitis worsening and failed outpt therapy. Now with osteomyelitis of the bilateral lower extremity with phalanx fracture noted -Pt been seen in the wound healing center by Dr Osborne for Right Foot cellulites and now Left cellulites worse as well -continue IV antibiotics at this time -Gen Surgery consulted. Appreciate Reccs -MRI consistent with osteomyelitis of the feet -will follow up with surgery for further recommendations at this time. (4) Thrombocytopenia Onset Date: 02/25/18 Current Visit: No Status: Acute Plan: Hold lovenox. Most cr 2.2 to chronic Alcohol abuse -currently platelets is improving (5) Diabetes mellitus, type II Onset Date: 02/04/18 Current Visit: No Status: Chronic Qualifiers: Diabetes mellitus boats renter insulin use: without boats renter use Diabetes mellitus complication status: with circulatory complication Diabetes mellitus complication detail: with peripheral angiopathy with gangrene Qualified Code(s ): E11.52 - Type 2 diabetes mellitus with diabetic peripheral angiopathy with gangrene (6) Cirrhosis Onset Date: 01/15/17 Current Visit: No Status: Chronic Qualifiers: Hepatic cirrhosis type: alcoholic cirrhosis Ascites presence: without ascites Qualified Code(s): K70.30 - Alcoholic cirrhosis of liver without ascites (7) History of alcohol use Current Visit: No Status: Chronic (8) Osteomyelitis Current Visit: Yes Status: Acute Plan: Bilateral cellulitis to the lower extremity with noted moderate osteomyelitis to the base of the proximal right phalanx on the 5th toe, medial aspect of the 5th metatarsal head, and the majority of the 4th metatarsal head along with moderate osteomyelitis with underlying fracture of the left proximal phalanx of the 5th toe Qualifiers: Osteomyelitis type: subacute Osteomyelitis location: foot Laterality: unspecified laterality Qualified Code(s): M86.279 - Subacute osteomyelitis, unspecified ankle and foot - Plan Patient pending improvement at this time. Currently pending placement at this time. Working with physical therapy. Discharge Plan: Other Plan to discharge in: 72 Hours - Code Status/Comfort Care Code Status Assessed: Yes Critical Care: No
[2018-03-06] MEDS ORDERED: NA CHLORIDE 0.9% 500 ML IV ONE (17:18)
[2018-03-06] MEDS ORDERED: NA CHLORIDE 0.9% 500 ML ONE (17:30)
[2018-03-06] MEDS: AMITRIPTYLINE 25 MG TAB PO SCH (21:43)
[2018-03-06] MEDS: VANCOMYCIN/NS 1 gm 1 GM/250 ML BAG IVPB SCH (21:43)
[2018-03-07] MEDS: PIPER/TAZO/NS 3.375gm 3.375 GM/100 ML BAG IVPB SCH ×3 (01:58→17:17)
[2018-03-07] MEDS: TRAMADOL HCL 50 MG TAB PO PRN ×3 (01:58→17:25)
[2018-03-07 05:25] LABS: Absolute Lymphocytes (CBC) 0.4 K/uL (0.7-4.9); Absolute Monocytes 0.7 K/uL (0.1-1.3); Absolute Neutrophil 8.8 K/uL (1.8-8.0); Basophils % 0.1 % (0-1.3); Eosinophils % 0.2 % (0-4.4); Lymphocytes % 4.4 % (15.3-44.8); MPV 9.2 fL (7.6-11.3); Monocytes % 7.3 % (3.3-12.3)
--- NOTE | 2018-03-07 05:37 | PN ---
Date of Progress Note: 03/06/2018 Patient is seen today. She is talkative and apparently fairly cheerful, about to participate in physical therapy. She does report a pain level of 10, but it does not appear that she is in that much pain. She does have a blood glucose of 462. Hospitalist is hopefully working on getting that controlled, although it is most likely extremely difficult given her medical situation. She does have a cole would like to have that discharge as soon as it would be possible. Also, results demonstrate that she is afebrile. She has a hemoglobin of 7.7, a platelet count of 86. I discussed transfusion with hospitalist. They said they would like to wait and see whether or not she would be able to hold this hemoglobin and check her symptomatically. Also discussed anticoagulation. At this point, they feel the anticoagulation with her history of various GI bleed would be difficult therefore recommend SCDs and mobility. This is deferred to them. All the patient's questions today are otherwise invited and answered and discharge planning is in progress. CASSIA Voice ID: [id number] Report ID: [id number] ANTONIETA
[2018-03-07 05:43] LABS: Albumin 1.7 g/dL (3.4-5.0); Bilirubin Total 0.5 mg/dL (0.2-1.0); Potassium 4.4 mmol/L (3.5-5.1)
[2018-03-07] MEDS: PANTOPRAZOLE 40MG TABLET PO SCH (06:24)
[2018-03-07] MEDS: FERROUS SULFATE 325 MG TAB PO SCH ×2 (08:33→22:28)
[2018-03-07] MEDS: FLUOXETINE 20 MG CAP PO SCH (08:33)
[2018-03-07] MEDS: GABAPENTIN 100 MG CAP PO SCH ×2 (08:33→22:27)
[2018-03-07] MEDS: INSULIN GLARGINE 100 UNITS/ML SQ SCH (08:34)
[2018-03-07] MEDS: INSULIN -REGULAR HUMAN 50 UNIT/0.5 ML ML SQ SCH ×4 (08:35→22:26)
[2018-03-07] MEDS ORDERED: NA CHLORIDE 0.9% 250 ML ONE (09:37)
[2018-03-07] MEDS: COLLAGENASE 30 GM OINTMENT TOP SCH (09:53)
--- NOTE | 2018-03-07 13:42 | P.PN ---
Subjective Date of Service: 03/07/18 Primary Care Provider: Sunni Huff NP Chief Complaint: Bilateral lower extremity cellulitis Pt seen and examined at bedside. Chart Reviewed. Case DW with Gen Surgery. Overnight patient has no complaints to offer. Currently working with physical therapy. Awaiting placement at this time Review of Systems 10-point ROS is otherwise unremarkable Physical Examination - Vital Signs Temperature: 97.1 F Blood Pressure: 112/59 Pulse: 80 Respirations: 20 Pulse Ox (%): 95 - Physical Exam General: Alert, In no apparent distress HEENT: Atraumatic, PERRLA, EOMI Neck: Supple, JVD not distended Respiratory: Clear to auscultation bilaterally, Normal air movement Cardiovascular: Regular rate/rhythm, Normal S1 S2 Gastrointestinal: Normal bowel sounds, No tenderness Musculoskeletal: No tenderness Integumentary: No rashes Neurological: Normal speech, Normal tone, Normal affect Lymphatics: No axilla or inguinal lymphadenopathy - Studies Medications List Reviewed: Yes Assessment And Plan - Current Problems (Diagnosis) (1) Fall Current Visit: Yes Status: Acute Plan: S/p fall in the hospital -Fall precaution given -Currently NWB BL LE -No Lovenox due to Thrombocytopenia -Continue to monitor Qualifiers: Encounter type: initial encounter Qualified Code(s): W19.XXXA - Unspecified fall, initial encounter (2) Right femoral fracture Current Visit: Yes Status: Acute Plan: Right Femoral Fracture S.p Fall -Orthopedics consulted. Appreciate Reccs -status post open reduction and fixation day 2 -doing well Qualifiers: Encounter type: initial encounter Femur location: intertrochanteric Fracture type: closed Fracture alignment: nondisplaced Qualified Code(s): S72.144A - Nondisplaced intertrochanteric fracture of right femur, initial encounter for closed fracture (3) Bilateral lower leg cellulitis Onset Date: 02/25/18 Current Visit: Yes Status: Acute Plan: BL Lower Leg Cellulitis worsening and failed outpt therapy. Now with osteomyelitis of the bilateral lower extremity with phalanx fracture noted -Pt been seen in the wound healing center by Dr Osborne for Right Foot cellulites and now Left cellulites worse as well -continue IV antibiotics at this time -Gen Surgery consulted. Appreciate Reccs -MRI consistent with osteomyelitis of the feet -will follow up with surgery for further recommendations at this time. (4) Thrombocytopenia Onset Date: 02/25/18 Current Visit: No Status: Acute Plan: Hold lovenox. 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 insulin use: without termite inspector use Diabetes mellitus complication status: with circulatory complication Diabetes mellitus complication detail: with peripheral angiopathy with gangrene Qualified Code(s ): E11.52 - Type 2 diabetes mellitus with diabetic peripheral angiopathy with gangrene (6) Cirrhosis Onset Date: 01/15/17 Current Visit: No Status: Chronic Qualifiers: Hepatic cirrhosis type: alcoholic cirrhosis Ascites presence: without ascites Qualified Code(s): K70.30 - Alcoholic cirrhosis of liver without ascites (7) History of alcohol use Current Visit: No Status: Chronic (8) Osteomyelitis Current Visit: Yes Status: Acute Plan: Bilateral cellulitis to the lower extremity with noted moderate osteomyelitis to the base of the proximal right phalanx on the 5th toe, medial aspect of the 5th metatarsal head, and the majority of the 4th metatarsal head along with moderate osteomyelitis with underlying fracture of the left proximal phalanx of the 5th toe Qualifiers: Osteomyelitis type: subacute Osteomyelitis location: foot Laterality: unspecified laterality Qualified Code(s): M86.279 - Subacute osteomyelitis, unspecified ankle and foot - Plan Patient pending improvement at this time. Currently pending placement at this time. Working with physical therapy. Discharge Plan: Home Plan to discharge in: 48 Hours - Code Status/Comfort Care Code Status Assessed: Yes Critical Care: No
[2018-03-07 17:37] LABS: Hematocrit 27.9 % (36.0-45.0)
[2018-03-07] MEDS: AMITRIPTYLINE 25 MG TAB PO SCH (22:28)
[2018-03-08] MEDS: PIPER/TAZO/NS 3.375gm 3.375 GM/100 ML BAG IVPB SCH ×2 (01:27→08:59)
[2018-03-08 05:18] LABS: Absolute Lymphocytes (CBC) 1.1 K/uL (0.7-4.9); Absolute Monocytes 1.3 K/uL (0.1-1.3); Absolute Neutrophil 9.3 K/uL (1.8-8.0); Basophils % 0.3 % (0-1.3); Eosinophils % 4.3 % (0-4.4); Hematocrit 28.2 % (36.0-45.0); MPV 8.8 fL (7.6-11.3); Monocytes % 10.5 % (3.3-12.3); RBC Red Blood Cell Count 3.25 M/uL (3.86-4.86)
[2018-03-08 05:30] LABS: Albumin 1.8 g/dL (3.4-5.0); Bilirubin Total 1.1 mg/dL (0.2-1.0); Potassium 4.5 mmol/L (3.5-5.1); Protein, Total 6.3 g/dL (6.4-8.2)
[2018-03-08] MEDS: PANTOPRAZOLE 40MG TABLET PO SCH (05:41)
[2018-03-08 05:51] LABS: Blood Morphology Comment NOT SEEN (NOT SEEN); Platelet Estimate DECR; Urine White Blood Cell Casts OK
[2018-03-08] MEDS: INSULIN -REGULAR HUMAN 50 UNIT/0.5 ML ML SQ SCH ×4 (07:30→21:25)
[2018-03-08] MEDS: GABAPENTIN 100 MG CAP PO SCH ×2 (08:59→21:26)
[2018-03-08] MEDS: FERROUS SULFATE 325 MG TAB PO SCH ×2 (08:59→21:26)
[2018-03-08] MEDS: TRAMADOL HCL 50 MG TAB PO PRN ×2 (08:59→15:44)
[2018-03-08] MEDS: FLUOXETINE 20 MG CAP PO SCH (09:00)
[2018-03-08] MEDS: INSULIN GLARGINE 100 UNITS/ML SQ SCH (09:00)
[2018-03-08] MEDS: COLLAGENASE 30 GM OINTMENT TOP SCH (09:00)
[2018-03-08] MEDS: VANCOMYCIN/NS 1 gm 1 GM/250 ML BAG IVPB SCH (10:56)
[2018-03-08] MEDS ORDERED: ALTEPLASE 2 MG/VIAL IV SCH ×2 (11:00)
[2018-03-08] MEDS ORDERED: WATER FOR INJ,STERILE 10 ML IV SCH (11:00)
--- NOTE | 2018-03-08 13:01 | P.PN ---
Subjective Date of Service: 03/08/18 Primary Care Provider: Sunni Huff NP Chief Complaint: Bilateral lower extremity cellulitis Pt seen and examined at bedside. Chart Reviewed. Case DW with Gen Surgery. Overnight patient has no complaints to offer. Currently working with physical therapy. Awaiting placement at this time Review of Systems 10-point ROS is otherwise unremarkable Physical Examination - Vital Signs Temperature: 98.0 F Blood Pressure: 103/64 Pulse: 83 Respirations: 20 Pulse Ox (%): 95 - Physical Exam General: Alert, In no apparent distress HEENT: Atraumatic, PERRLA, EOMI Neck: Supple, JVD not distended Respiratory: Clear to auscultation bilaterally, Normal air movement Cardiovascular: Regular rate/rhythm, Normal S1 S2 Gastrointestinal: Normal bowel sounds, No tenderness Musculoskeletal: No tenderness Integumentary: No rashes Neurological: Normal speech, Normal tone, Normal affect Lymphatics: No axilla or inguinal lymphadenopathy - Studies Medications List Reviewed: Yes Assessment And Plan - Current Problems (Diagnosis) (1) Fall Current Visit: Yes Status: Acute Plan: S/p fall in the hospital -Fall precaution given -Currently NWB BL LE -No Lovenox due to Thrombocytopenia -Continue to monitor Qualifiers: Encounter type: initial encounter Qualified Code(s): W19.XXXA - Unspecified fall, initial encounter (2) Right femoral fracture Current Visit: Yes Status: Acute Plan: Right Femoral Fracture S.p Fall -Orthopedics consulted. Appreciate Reccs -status post open reduction and fixation day 3 -doing well Qualifiers: Encounter type: initial encounter Femur location: intertrochanteric Fracture type: closed Fracture alignment: nondisplaced Qualified Code(s): S72.144A - Nondisplaced intertrochanteric fracture of right femur, initial encounter for closed fracture (3) Bilateral lower leg cellulitis Onset Date: 02/25/18 Current Visit: Yes Status: Acute Plan: BL Lower Leg Cellulitis worsening and failed outpt therapy. Now with osteomyelitis of the bilateral lower extremity with phalanx fracture noted -Pt been seen in the wound healing center by Dr Osborne for Right Foot cellulites and now Left cellulites worse as well -continue IV Vanc and Switched Zosyn to Clindamycin and Bactrim -Gen Surgery consulted. Appreciate Reccs -MRI consistent with osteomyelitis of the feet -will follow up with surgery for further recommendations at this time. (4) Thrombocytopenia Onset Date: 02/25/18 Current Visit: No Status: Acute Plan: Hold lovenox. 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 use: without equipment operator intermodal yard use Diabetes mellitus complication status: with circulatory complication Diabetes mellitus complication detail: with peripheral angiopathy with gangrene Qualified Code(s ): E11.52 - Type 2 diabetes mellitus with diabetic peripheral angiopathy with gangrene (6) Cirrhosis Onset Date: 01/15/17 Current Visit: No Status: Chronic Qualifiers: Hepatic cirrhosis type: alcoholic cirrhosis Ascites presence: without ascites Qualified Code(s): K70.30 - Alcoholic cirrhosis of liver without ascites (7) History of alcohol use Current Visit: No Status: Chronic (8) Osteomyelitis Current Visit: Yes Status: Acute Plan: Bilateral cellulitis to the lower extremity with noted moderate osteomyelitis to the base of the proximal right phalanx on the 5th toe, medial aspect of the 5th metatarsal head, and the majority of the 4th metatarsal head along with moderate osteomyelitis with underlying fracture of the left proximal phalanx of the 5th toe -On IV vanc and PO bactrim and Clindamycin Qualifiers: Osteomyelitis type: subacute Osteomyelitis location: foot Laterality: unspecified laterality Qualified Code(s): M86.279 - Subacute osteomyelitis, unspecified ankle and foot - Plan Patient pending improvement at this time. Currently pending placement at this time. Working with physical therapy. Discharge Plan: Other Plan to discharge in: 72 Hours - Code Status/Comfort Care Code Status Assessed: Yes Critical Care: No
[2018-03-08] MEDS: CLINDAMYCIN HCL 150 MG CAP PO SCH (17:21)
[2018-03-08] MEDS: AMITRIPTYLINE 25 MG TAB PO SCH (21:26)
[2018-03-08] MEDS: SMZ./TMP. 800/160 MG TABLET PO SCH (21:26)
[2018-03-09] MEDS: CLINDAMYCIN HCL 150 MG CAP PO SCH ×5 (00:39→23:45)
[2018-03-09] MEDS: PANTOPRAZOLE 40MG TABLET PO SCH (05:40)
[2018-03-09 06:25] LABS: Absolute Monocytes 1.2 K/uL (0.1-1.3); Absolute Neutrophil 9.9 K/uL (1.8-8.0); Albumin 1.7 g/dL (3.4-5.0); Basophils % 0.8 % (0-1.3); Eosinophils % 5.3 % (0-4.4); Hematocrit 27.7 % (36.0-45.0); MPV 8.8 fL (7.6-11.3); Magnesium 2.1 mg/dL (1.8-2.4); Monocytes % 9.4 % (3.3-12.3); Phosphorus 2.7 mg/dL (2.5-4.9); Potassium 4.6 mmol/L (3.5-5.1); Protein, Total 6.2 g/dL (6.4-8.2); RBC Red Blood Cell Count 3.18 M/uL (3.86-4.86)
[2018-03-09] MEDS: INSULIN -REGULAR HUMAN 50 UNIT/0.5 ML ML SQ SCH ×4 (07:30→21:17)
[2018-03-09] MEDS: GABAPENTIN 100 MG CAP PO SCH ×2 (08:29→21:14)
[2018-03-09] MEDS: FLUOXETINE 20 MG CAP PO SCH (08:29)
[2018-03-09] MEDS: FERROUS SULFATE 325 MG TAB PO SCH ×2 (08:29→21:14)
[2018-03-09] MEDS: SMZ./TMP. 800/160 MG TABLET PO SCH ×2 (08:29→21:14)
[2018-03-09] MEDS: INSULIN GLARGINE 100 UNITS/ML SQ SCH (08:29)
[2018-03-09] MEDS: COLLAGENASE 30 GM OINTMENT TOP SCH (08:41)
--- NOTE | 2018-03-09 10:43 | P.PN ---
Subjective Date of Service: 03/09/18 Primary Care Provider: Sunni Huff NP Chief Complaint: Bilateral lower extremity cellulitis Pt seen and examined at bedside. Chart Reviewed. Case DW with Gen Surgery. Overnight patient has no complaints to offer. Currently working with physical therapy. Awaiting placement at this time. Today WBC is slightly elevated. Review of Systems 10-point ROS is otherwise unremarkable Physical Examination - Vital Signs Temperature: 98.6 F Blood Pressure: 111/58 Pulse: 89 Respirations: 20 Pulse Ox (%): 94 - Physical Exam General: Alert, In no apparent distress HEENT: Atraumatic, PERRLA, EOMI Neck: Supple, JVD not distended Respiratory: Clear to auscultation bilaterally, Normal air movement Cardiovascular: Regular rate/rhythm, Normal S1 S2 Gastrointestinal: Normal bowel sounds, No tenderness Musculoskeletal: Erythema, Tenderness, Warmth, Other (BL LE Toes) Integumentary: No rashes Neurological: Normal speech, Normal tone, Normal affect Lymphatics: No axilla or inguinal lymphadenopathy - Studies Medications List Reviewed: Yes Assessment And Plan - Current Problems (Diagnosis) (1) Fall Current Visit: Yes Status: Acute Plan: S/p fall in the hospital -Fall precaution given -Currently NWB BL LE -No Lovenox due to Thrombocytopenia -Continue to monitor Qualifiers: Encounter type: initial encounter Qualified Code(s): W19.XXXA - Unspecified fall, initial encounter (2) Right femoral fracture Current Visit: Yes Status: Acute Plan: Right Femoral Fracture S.p Fall -Orthopedics consulted. Appreciate Reccs -status post open reduction and fixation day 4 -doing well and Pain mgmt with Tramadol -No Lovenox due to Thrombocytopenia 2.2 to Alcoholism -Ambulate with PT Qualifiers: Encounter type: initial encounter Femur location: intertrochanteric Fracture type: closed Fracture alignment: nondisplaced Qualified Code(s): S72.144A - Nondisplaced intertrochanteric fracture of right femur, initial encounter for closed fracture (3) Bilateral lower leg cellulitis Onset Date: 02/25/18 Current Visit: Yes Status: Acute Plan: BL Lower Leg Cellulitis worsening and failed outpt therapy. -Now with osteomyelitis of the bilateral lower extremity with phalanx fracture noted -Pt been seen in the wound healing center by Dr Osborne for chronic Osteomylitis of the right. Now presenting to the Hospital with left sided Osteo -continue IV Vanc and Switched Zosyn to Clindamycin and Bactrim -Gen Surgery consulted. Appreciate Reccs -Wound care Consulted. -ID consulted. Appreciated reccs -WBC elevated today. Will monitor. -TANNA cole today (4) Osteomyelitis Current Visit: Yes Status: Acute Plan: Bilateral cellulitis to the lower extremity with noted moderate osteomyelitis to the base of the proximal right phalanx on the 5th toe, medial aspect of the 5th metatarsal head, and the majority of the 4th metatarsal head along with moderate osteomyelitis with underlying fracture of the left proximal phalanx of the 5th toe -On IV vanc and PO bactrim and Clindamycin Qualifiers: Osteomyelitis type: subacute Osteomyelitis location: foot Laterality: unspecified laterality Qualified Code(s): M86.279 - Subacute osteomyelitis, unspecified ankle and foot (5) Thrombocytopenia Onset Date: 02/25/18 Current Visit: No Status: Acute Plan: Hold lovenox. Most likley 2.2 to chronic Alcohol abuse -currently platelets is improving (6) Diabetes mellitus, type II Onset Date: 02/04/18 Current Visit: No Status: Chronic Qualifiers: Diabetes mellitus [facility] insulin use: without [facility] use Diabetes mellitus complication status: with circulatory complication Diabetes mellitus complication detail: with peripheral angiopathy with gangrene Qualified Code(s ): E11.52 - Type 2 diabetes mellitus with diabetic peripheral angiopathy with gangrene (7) Cirrhosis Onset Date: 01/15/17 Current Visit: No Status: Chronic Qualifiers: Hepatic cirrhosis type: alcoholic cirrhosis Ascites presence: without ascites Qualified Code(s): K70.30 - Alcoholic cirrhosis of liver without ascites (8) History of alcohol use Current Visit: No Status: Chronic - Plan Patient pending improvement at this time. Currently pending placement at this time. Working with physical therapy. Discharge Plan: Transfer Plan to discharge in: 48 Hours - Code Status/Comfort Care Code Status Assessed: Yes Critical Care: No
[2018-03-09] MEDS ORDERED: MEDIHONEY 44 ML TOPICAL TUBE TOP SCH (14:00)
[2018-03-09] MEDS: TRAMADOL HCL 50 MG TAB PO PRN (15:22)
[2018-03-09] MEDS: ONDANSETRON 4 MG/2 ML VIAL IV PRN (18:07)
[2018-03-09] MEDS: VANCOMYCIN/NS 1 gm 1 GM/250 ML BAG IVPB SCH (21:13)
[2018-03-09] MEDS: AMITRIPTYLINE 25 MG TAB PO SCH (21:14)
[2018-03-10] MEDS: CLINDAMYCIN HCL 150 MG CAP PO SCH ×2 (05:19→12:00)
[2018-03-10] MEDS: PANTOPRAZOLE 40MG TABLET PO SCH (05:20)
[2018-03-10] MEDS: INSULIN -REGULAR HUMAN 50 UNIT/0.5 ML ML SQ SCH ×4 (07:30→20:23)
[2018-03-10] MEDS: FERROUS SULFATE 325 MG TAB PO SCH ×2 (07:59→20:19)
[2018-03-10] MEDS: FLUOXETINE 20 MG CAP PO SCH (07:59)
[2018-03-10] MEDS: INSULIN GLARGINE 100 UNITS/ML SQ SCH (07:59)
[2018-03-10] MEDS: MEDIHONEY 44 ML TOPICAL TUBE TOP SCH (08:00)
[2018-03-10] MEDS: GABAPENTIN 100 MG CAP PO SCH (08:00)
[2018-03-10] MEDS: SMZ./TMP. 800/160 MG TABLET PO SCH (08:00)
[2018-03-10 11:17] LABS: Absolute Lymphocytes (CBC) 0.8 K/uL (0.7-4.9); Absolute Monocytes 1.2 K/uL (0.1-1.3); Absolute Neutrophil 12.3 K/uL (1.8-8.0); Eosinophils % 2.3 % (0-4.4); Hematocrit 27.2 % (36.0-45.0); Lymphocytes % 5.3 % (15.3-44.8); MPV 8.6 fL (7.6-11.3); Monocytes % 8.4 % (3.3-12.3); RBC Red Blood Cell Count 3.15 M/uL (3.86-4.86)
[2018-03-10 11:29] LABS: Potassium 4.6 mmol/L (3.5-5.1)
[2018-03-10 12:15] LABS: Anisocytosis 1+; Blood Morphology Comment NOTED (NOT SEEN); Platelet Estimate DECR
--- NOTE | 2018-03-10 13:05 | P.PN ---
Subjective Date of Service: 03/10/18 Primary Care Provider: Sunni Huff NP Chief Complaint: Bilateral lower extremity cellulitis Pt seen and examined at bedside. Chart Reviewed. Case DW with Gen Surgery. This morning patient does appear to be more lethargic than usual. However alert and oriented x3 able to answer appropriate questions. States that she is feeling weaker than before. Currently lab work is pending at this time. Review of Systems 10-point ROS is otherwise unremarkable Physical Examination - Vital Signs Temperature: 99.2 F Blood Pressure: 112/55 Pulse: 85 Respirations: 18 Pulse Ox (%): 92 - Physical Exam General: Alert, Oriented x3, Mild distress HEENT: Atraumatic, PERRLA, EOMI Neck: Supple, JVD not distended Respiratory: Clear to auscultation bilaterally, Normal air movement Cardiovascular: Regular rate/rhythm, Normal S1 S2 Gastrointestinal: Normal bowel sounds, No tenderness Musculoskeletal: Erythema, Tenderness, Warmth (Bilateral lower extremity HL is appears to be increasing necrotic than before. Joshua bandages in place. Dressing changes have been done.) Integumentary: No rashes Neurological: Normal speech, Normal tone, Normal affect Lymphatics: No axilla or inguinal lymphadenopathy - Studies Medications List Reviewed: Yes Assessment And Plan - Current Problems (Diagnosis) (1) Fall Current Visit: Yes Status: Acute Plan: S/p fall in the hospital -Fall precaution given -Currently NWB BL LE -No Lovenox due to Thrombocytopenia -Continue to monitor Qualifiers: Encounter type: initial encounter Qualified Code(s): W19.XXXA - Unspecified fall, initial encounter (2) Right femoral fracture Current Visit: Yes Status: Acute Plan: Right Femoral Fracture S.p Fall -Orthopedics consulted. Appreciate Reccs -status post open reduction and fixation day 5 -doing well and Pain mgmt with Tramadol -No Lovenox due to Thrombocytopenia 2.2 to Alcoholism -Ambulate with PT Qualifiers: Encounter type: initial encounter Femur location: intertrochanteric Fracture type: closed Fracture alignment: nondisplaced Qualified Code(s): S72.144A - Nondisplaced intertrochanteric fracture of right femur, initial encounter for closed fracture (3) Bilateral lower leg cellulitis Onset Date: 02/25/18 Current Visit: Yes Status: Acute Plan: BL Lower Leg Cellulitis worsening and failed outpt therapy. -Now with osteomyelitis of the bilateral lower extremity with phalanx fracture noted -Pt been seen in the wound healing center by Dr Osborne for chronic Osteomylitis of the right. Now presenting to the Hospital with left sided Osteo -continue IV Vanc and Switched back to Zosyn today due to elevated WBC count -Gen Surgery consulted. Appreciate Reccs -Wound care Consulted. -ID consulted. Appreciated reccs (4) Osteomyelitis Current Visit: Yes Status: Acute Plan: Bilateral cellulitis to the lower extremity with noted moderate osteomyelitis to the base of the proximal right phalanx on the 5th toe, medial aspect of the 5th metatarsal head, and the majority of the 4th metatarsal head along with moderate osteomyelitis with underlying fracture of the left proximal phalanx of the 5th toe -On IV vanc and switch back to Zosyn today due to elevated white blood cell count Qualifiers: Osteomyelitis type: subacute Osteomyelitis location: foot Laterality: unspecified laterality Qualified Code(s): M86.279 - Subacute osteomyelitis, unspecified ankle and foot (5) Thrombocytopenia Onset Date: 02/25/18 Current Visit: No Status: Acute Plan: Hold [employer]. [employer] 2.2 to chronic Alcohol abuse -currently platelets is improving (6) Diabetes mellitus, type II Onset Date: 02/04/18 Current Visit: No Status: Chronic Qualifiers: Diabetes mellitus group home insulin use: without mold forms builder use Diabetes mellitus complication status: with circulatory complication Diabetes mellitus complication detail: with peripheral angiopathy with gangrene Qualified Code(s ): E11.52 - Type 2 diabetes mellitus with diabetic peripheral angiopathy with gangrene (7) Cirrhosis Onset Date: 01/15/17 Current Visit: No Status: Chronic Qualifiers: Hepatic cirrhosis type: alcoholic cirrhosis Ascites presence: without ascites Qualified Code(s): K70.30 - Alcoholic cirrhosis of liver without ascites (8) History of alcohol use Current Visit: No Status: Chronic - Plan Patient pending improvement at this time. Currently pending placement at this time. Working with physical therapy. This morning did appear to be more lethargic than usual. Elevated WBC count on lab work. Switch back to Zosyn. Patient did not do well on oral Bactrim and clindamycin. Discharge Plan: Other Plan to discharge in: 48 Hours - Code Status/Comfort Care Code Status Assessed: Yes Critical Care: No
[2018-03-10] MEDS: NA CHLORIDE 0.9% 1,000 ML IV SCH (13:17)
[2018-03-10] MEDS: TRAMADOL HCL 50 MG TAB PO PRN (13:25)
[2018-03-10] MEDS: PIPER/TAZO/NS 3.375gm 3.375 GM/100 ML BAG IVPB SCH ×2 (13:28→21:08)
[2018-03-10] MEDS: LOPERAMIDE HCL 2 MG CAPSULE PO PRN (18:09)
[2018-03-10] MEDS: AMITRIPTYLINE 25 MG TAB PO SCH (20:19)
[2018-03-10] MEDS: ONDANSETRON 4 MG/2 ML VIAL IV PRN (21:13)
[2018-03-10 23:21] LABS: Absolute Lymphocytes (CBC) 0.7 K/uL (0.7-4.9); Absolute Monocytes 1.5 K/uL (0.1-1.3); Absolute Neutrophil 11.7 K/uL (1.8-8.0); Basophils % 0.4 % (0-1.3); Eosinophils % 3.7 % (0-4.4); Lymphocytes % 4.6 % (15.3-44.8); MPV 8.8 fL (7.6-11.3); Monocytes % 10.3 % (3.3-12.3)
[2018-03-10 23:36] LABS: Albumin 1.6 g/dL (3.4-5.0); Potassium 4.3 mmol/L (3.5-5.1)
[2018-03-11] MEDS: PIPER/TAZO/NS 3.375gm 3.375 GM/100 ML BAG IVPB SCH ×3 (05:16→22:54)
[2018-03-11] MEDS: ALENDRONATE 70 MG TAB PO SCH (05:17)
[2018-03-11] MEDS: PANTOPRAZOLE 40MG TABLET PO SCH (05:17)
[2018-03-11] MEDS: INSULIN -REGULAR HUMAN 50 UNIT/0.5 ML ML SQ SCH ×4 (07:30→20:31)
[2018-03-11] MEDS: NA CHLORIDE 0.9% 1,000 ML IV SCH (08:47)
[2018-03-11] MEDS: VANCOMYCIN/NS 1 gm 1 GM/250 ML BAG IVPB SCH (08:48)
[2018-03-11] MEDS: INSULIN GLARGINE 100 UNITS/ML SQ SCH (08:51)
[2018-03-11] MEDS: FERROUS SULFATE 325 MG TAB PO SCH ×2 (08:51→20:40)
[2018-03-11] MEDS: FLUOXETINE 20 MG CAP PO SCH (08:51)
[2018-03-11] MEDS: MEDIHONEY 44 ML TOPICAL TUBE TOP SCH (08:57)
[2018-03-11] MEDS: TRAMADOL HCL 50 MG TAB PO PRN ×2 (09:00→16:59)
[2018-03-11] MEDS: ONDANSETRON 4 MG/2 ML VIAL IV PRN ×2 (09:18→20:36)
--- NOTE | 2018-03-11 12:27 | P.PN ---
Subjective Date of Service: 03/11/18 Primary Care Provider: Sunni Huff NP Chief Complaint: Bilateral lower extremity cellulitis Pt seen and examined at bedside. Chart Reviewed. Case DW with Gen Surgery. Patient this morning appears to have generalized weakness. General surgery is planning for surgical procedure Sunday morning. Review of Systems 10-point ROS is otherwise unremarkable Physical Examination - Vital Signs Temperature: 97.7 F Blood Pressure: 107/56 Pulse: 79 Respirations: 20 Pulse Ox (%): 95 - Physical Exam General: Alert, In no apparent distress HEENT: Atraumatic, Other (Pin point pupils ), EOMI Neck: Supple, JVD not distended Respiratory: Clear to auscultation bilaterally, Normal air movement Cardiovascular: Regular rate/rhythm, Normal S1 S2 Gastrointestinal: Normal bowel sounds, No tenderness Musculoskeletal: Erythema, Tenderness, Warmth Integumentary: No rashes Neurological: Normal speech, Normal tone, Normal affect Lymphatics: No axilla or inguinal lymphadenopathy - Studies Medications List Reviewed: Yes Assessment And Plan - Current Problems (Diagnosis) (1) Fall Current Visit: Yes Status: Acute Plan: S/p fall in the hospital -Fall precaution given -Currently NWB BL LE -No Lovenox due to Thrombocytopenia -Continue to monitor Qualifiers: Encounter type: initial encounter Qualified Code(s): W19.XXXA - Unspecified fall, initial encounter (2) Right femoral fracture Current Visit: Yes Status: Acute Plan: Right Femoral Fracture S.p Fall -Orthopedics consulted. Appreciate Reccs -status post open reduction and fixation day 6 -doing well and Pain mgmt with Tramadol -No Lovenox due to Thrombocytopenia 2.2 to Alcoholism -Ambulate with PT -Will repeat xray to Ensure surgical Site is C/D/I and healing well Qualifiers: Encounter type: initial encounter Femur location: intertrochanteric Fracture type: closed Fracture alignment: nondisplaced Qualified Code(s): S72.144A - Nondisplaced intertrochanteric fracture of right femur, initial encounter for closed fracture (3) Bilateral lower leg cellulitis Onset Date: 02/25/18 Current Visit: Yes Status: Acute Plan: BL Lower Leg Cellulitis worsening and failed outpt therapy. -Now with osteomyelitis of the bilateral lower extremity with phalanx fracture noted -continue IV Vanc and Switched back to Zosyn today due to elevated WBC count -Gen Surgery consulted. Appreciate Reccs -Amputation planed for sunday -NPO after midnight Sunday -Wound care Consulted. -ID consulted. Appreciated reccs (4) Osteomyelitis Current Visit: Yes Status: Acute Plan: Bilateral cellulitis to the lower extremity with noted moderate osteomyelitis to the base of the proximal right phalanx on the 5th toe, medial aspect of the 5th metatarsal head, and the majority of the 4th metatarsal head along with moderate osteomyelitis with underlying fracture of the left proximal phalanx of the 5th toe -On IV vanc and switch back to Zosyn today due to elevated white blood cell count Qualifiers: Osteomyelitis type: subacute Osteomyelitis location: foot Laterality: unspecified laterality Qualified Code(s): M86.279 - Subacute osteomyelitis, unspecified ankle and foot (5) Thrombocytopenia Onset Date: 02/25/18 Current Visit: No Status: Acute Plan: Hold lovenox. Most likley 2.2 to chronic Alcohol abuse -currently platelets is improving (6) Diabetes mellitus, type II Onset Date: 02/04/18 Current Visit: No Status: Chronic Qualifiers: Diabetes mellitus telephone supervisor insulin use: without telephone supervisor use Diabetes mellitus complication status: with circulatory complication Diabetes mellitus complication detail: with peripheral angiopathy with gangrene Qualified Code(s ): E11.52 - Type 2 diabetes mellitus with diabetic peripheral angiopathy with gangrene (7) Cirrhosis Onset Date: 01/15/17 Current Visit: No Status: Chronic Qualifiers: Hepatic cirrhosis type: alcoholic cirrhosis Ascites presence: without ascites Qualified Code(s): K70.30 - Alcoholic cirrhosis of liver without ascites (8) History of alcohol use Current Visit: No Status: Chronic - Plan Patient pending improvement at this time. Planned for surgery on Sunday. Continue with IV abx Discharge Plan: Other Plan to discharge in: 72 Hours - Code Status/Comfort Care Code Status Assessed: Yes Critical Care: No
--- NOTE | 2018-03-11 15:13 | RAD REPORT ---
EXAM DESCRIPTION: RAD - Abdomen 1 View (KUB) - 03/11/2018 3:07 pm CLINICAL HISTORY: Abdominal pain, nausea, recent right femur fracture repair COMPARISON: None. FINDINGS: Bowel gas pattern is non-specific. No obstruction, free air or pneumatosis. No suspicious calcifications. Stomach does not appear to be distended. Cardiac leads overlie the lower chest and u pper abdomen. No suspicious calcifications. No significant bony findings IMPRESSION: No bowel obstruction or surgically emergent finding.
--- NOTE | 2018-03-11 15:22 | RAD REPORT ---
EXAM DESCRIPTION: RAD - Chest Single View - 03/11/2018 3:09 pm CLINICAL HISTORY: Pneumonia COMPARISON: March 04 TECHNIQUE: AP portable chest image was obtained 1436 hours . FINDINGS: Lung volumes remain very low. Patient is a much more extensive alveolar opacification gilmer alicia compared to March 04. PICC line remains in place. Heart and vasculature are normal. No pneumo thorax or large pleural effusion. No acute bony abnormality seen. No acute aortic findings suspected. IMPRESSION: Significant progression of right-side airspace opacification since March 04. New left lung field airspace opacification. Findings likely reflect a combination of progressive pneumonia and pulmonary edema.
[2018-03-11] MEDS: PROMOD 30 ML DOSE PO SCH (20:39)
[2018-03-11] MEDS: AMITRIPTYLINE 25 MG TAB PO SCH (20:39)
[2018-03-11] MEDS: GLUCERNA SHAKE 237 ML CAN PO SCH (20:39)
[2018-03-12] MEDS: TRAMADOL HCL 50 MG TAB PO PRN ×2 (03:18→11:30)
[2018-03-12] MEDS: NA CHLORIDE 0.9% 1,000 ML IV SCH (03:24)
[2018-03-12] MEDS: PANTOPRAZOLE 40MG TABLET PO SCH (05:20)
[2018-03-12] MEDS: PIPER/TAZO/NS 3.375gm 3.375 GM/100 ML BAG IVPB SCH ×2 (05:20→14:00)
[2018-03-12 05:38] LABS: Absolute Lymphocytes (CBC) 0.5 K/uL (0.7-4.9); Absolute Monocytes 1.1 K/uL (0.1-1.3); Absolute Neutrophil 8.7 K/uL (1.8-8.0); Basophils % 0.4 % (0-1.3); Eosinophils % 7.1 % (0-4.4); Hematocrit 26.5 % (36.0-45.0); Lymphocytes % 4.9 % (15.3-44.8); MPV 8.9 fL (7.6-11.3); Monocytes % 9.7 % (3.3-12.3); RBC Red Blood Cell Count 3.04 M/uL (3.86-4.86)
[2018-03-12 05:50] LABS: Albumin 1.5 g/dL (3.4-5.0); Bilirubin Total 1.1 mg/dL (0.2-1.0); Potassium 4.4 mmol/L (3.5-5.1); Protein, Total 6.2 g/dL (6.4-8.2)
[2018-03-12] MEDS: INSULIN -REGULAR HUMAN 50 UNIT/0.5 ML ML SQ SCH ×4 (07:30→21:12)
[2018-03-12] MEDS ORDERED: FUROSEMIDE 20 MG/ 2ML VIAL IV ONE (07:51)
[2018-03-12] MEDS: INSULIN GLARGINE 100 UNITS/ML SQ SCH (08:34)
[2018-03-12] MEDS: GLUCERNA SHAKE 237 ML CAN PO SCH ×2 (08:34→21:11)
[2018-03-12] MEDS: FERROUS SULFATE 325 MG TAB PO SCH ×2 (08:35→21:11)
[2018-03-12] MEDS: FLUOXETINE 20 MG CAP PO SCH (08:35)
[2018-03-12] MEDS: PROMOD 30 ML DOSE PO SCH ×2 (08:36→21:12)
[2018-03-12] MEDS: MEDIHONEY 44 ML TOPICAL TUBE TOP SCH (09:00)
--- NOTE | 2018-03-12 09:43 | RAD REPORT ---
EXAM DESCRIPTION: Jannett Single View03/12/2018 8:21 am CLINICAL HISTORY: Chest pain COMPARISON: March 11 FINDINGS: Mild improvement in the right and no significant change in the left pulmonary opacities. Heart is normal size. PICC line has its tip in the superior vena cava IMPRESSION: Mild improvement in right and no significant change in left pulmonary opacities which ma y represent pulmonary edema or pneumonia
--- NOTE | 2018-03-12 11:02 | RAD REPORT ---
EXAM DESCRIPTION: CT - Abdomen Pelvis Wo Contrast - 03/12/2018 10:30 am CLINICAL HISTORY: Abdominal distention, ascites COMPARISON: Single-view chest March 12 TECHNIQUE: Axial [address] imaging of the abdomen and pelvis was performed without IV contrast. No IV contrast was given because of allergy, abnormal renal function, patient refusal or physician re quest. Oral contrast was given. All CT scans are performed using dose optimization technique as appropriate and may include automated exposure control or mA/KV adjustment according to patient size. FINDINGS: Lung bases show a small right pleural effusion. Patient has extensive interstitial thicken ing from infiltrate or edema. Additional alveolar opacities are present right middle lobe air broncho grams. No pericardial thickening or effusion. Only a small amount of oral contrast is present. There is contrast in the esophagus from either reflux or diminished peristalsis. Slight nodular contour of the liver capsule noted. This could represent cirrhosis or diffuse hepatic parenchymal disease. No focal liver lesion on noncontrast imaging. No acute splenic finding. No mass of the pancreatic parenchyma seen. There is a small amount of fluid in stranding in the peripancreati c fat. Patient has overall congested or edematous appearance to the peritoneal and retroperitoneal fa t. Small to moderate amount of ascites present primarily in the lower pelvis. Cholecystectomy clips a re present. No biliary tree dilatation. No hydronephrosis or suspicious renal mass. No significant adrenal finding. Isodense renal masses an d pyelonephritis cannot be excluded in the absence of IV contrast. Urinary bladder is mostly contract ed. Bailon catheter is in place. Mixed food and contrast are present in a nondilated stomach. Gastric mass assessment is limb. Bernal o f the proximal small bowel are prominent without dilatation. This may be a mild mucosal edema. Modera te stool volume present in non dilated colon. No acute colon process seen. No free air or pneumatosis. There is fluid retention throughout the subcutaneous fatty tissues along the lateral and posterior aspect of the abdomen and pelvis. No hernia, mass or bulky lymphadenopathy . Disc and bony degenerative changes are present. Postsurgical changes are present in the proximal righ t femur. IMPRESSION: Mild to moderate volume of ascites primarily collecting in the dependent portion of the pelvis. Patient has fluid retention throughout the subcutaneous fatty tissues and to a lesser degree in the peritoneal fatty tissues. Fluid in stranding surrounds the pancreas. This may simply be part of the ascites and anasarca patter n. Pancreatitis is possible if there are matching clinical or laboratory findings. Nodularity to the liver capsule that may indicate cirrhosis or diffuse hepatic parenchymal disease. No acute GI process suspected. Gastric assessment is limited. Contrast in the esophagus may represent diminished peristalsis or reflux. Extensive interstitial and alveolar opacification in each lung base only partially imaged. This may r eflect pulmonary edema, pneumonia or a combination. Pleural effusion on the right is small. Full assessment is limited is the absence of IV contrast.
[2018-03-12 11:16] LABS: Barbiturates NEGATIVE (NEGATIVE); Benzodiazepines NEGATIVE (NEGATIVE); Cocaine NEGATIVE (NEGATIVE); METHAMPHETAM NEGATIVE (NEGATIVE); Methadone NEGATIVE (NEGATIVE); Opiates NEGATIVE (NEGATIVE); Phencyclidine NEGATIVE (NEGATIVE); THC Cannibis NEGATIVE (NEGATIVE)
[2018-03-12] MEDS: ONDANSETRON 4 MG/2 ML VIAL IV PRN (12:48)
[2018-03-12] MEDS: Meropenem 500 MG in NA CHLORIDE 0.9% 100 ML IV SCH ×2 (15:48→21:15)
[2018-03-12] MEDS ORDERED: ENOXAPARIN 30 MG/0.3 ML SQ SCH (17:00)
[2018-03-12 17:05] LABS: Urine Protein/Creatinine Ratio 0.76 ratio (<0.15)
--- NOTE | 2018-03-12 17:19 | P.PN ---
Subjective Date of Service: 03/12/18 Primary Care Provider: Sunni Huff NP Chief Complaint: Bilateral lower extremity cellulitis Subjective: Other (Patient having increasing shortness of breath this morning. Patient evaluated and sent to the ICU for better monitoring. IV fluids held. Patient given Lasix. CT scan ordered case discussed with surgery.) Physical Examination - Vital Signs Temperature: 97.4 F Blood Pressure: 103/60 Pulse: 74 Respirations: 18 Pulse Ox (%): 98 - Physical Exam General: Alert, Cooperative, Mild distress (Some shortness of breath noted) HEENT: Atraumatic Neck: Supple Respiratory: Diminished (To the bases), Crackles/rales (Bilateral) Cardiovascular: Regular rate/rhythm Gastrointestinal: Normal bowel sounds, Soft and benign, No tenderness, No masses , No rebound, No guarding, Ascites Musculoskeletal: No erythema, No tenderness, No warmth Integumentary: No erythema, No warmth, No cyanosis Neurological: Normal speech, Normal strength at 5/5 x4 extr, Normal tone, Normal affect - Studies Medications List Reviewed: Yes Assessment & Plan Discharge Plan: Snf Plan to discharge in: Greater than 2 days Physician Review Additional Text: Impression: Dyspnea secondary to pulmonary edema with possible underlying pneumonia Ascites with noted chronic alcohol cirrhosis Acute on chronic renal failure stage IV likely related to medication Bilateral cellulitis to the lower extremity with noted moderate osteomyelitis to the base of the proximal right phalanx on the 5th toe, medial aspect of the 5th metatarsal head, and the majority of the 4th metatarsal head along with moderate osteomyelitis with underlying fracture of the left proximal phalanx of the 5th toe Recent fall with right femoral fracture status post repair postop day 7 Diabetes mellitus type 2, insulin dependent Peripheral vascular disease Depression with anxiety Diabetic neuropathy Thrombocytopenia likely related to alcoholic cirrhosis Tobacco abuse Anemia likely of chronic disease Plan: Dyspnea secondary to pulmonary edema with possible underlying pneumonia: Patient sent to the ICU for close monitoring. Patient given IV Lasix with improvement. Will continue with Lasix. Case discussed at length with nephrology. Will consult pulmonology to further evaluate. IV antibiotic therapy has been adjusted. Zosyn discontinued now on meropenem. Will monitor chest x-ray. Will wean off oxygen. Will start DVT prophylaxis. Will need to evaluate for possible pulmonary embolism. Will discuss case further with pulmonology. Ascites with noted at chronic alcohol cirrhosis: Will Dc IV fluids. Will continue with Lasix IV. Will have abdominal ultrasound-guided paracentesis tomorrow. Acute on chronic renal disease stage IV: This is likely exacerbated by medication. Case discussed with nephrology. Will discontinue Zosyn. Continue with Lasix. Will monitor renal function closely. Status post fall leading to right femoral fracture status post repair postop day 7: Will hold physical therapy at this time. Bilateral cellulitis to the lower extremity with noted moderate osteomyelitis to the base of the proximal right phalanx on the 5th toe, medial aspect of the 5th metatarsal head, and the majority of the 4th metatarsal head along with moderate osteomyelitis with underlying fracture of the left proximal phalanx of the 5th toe: Case discussed with surgery. Will hold off on surgery at this time. Will continue with vancomycin. Zosyn discontinued due to renal failure. Diabetes mellitus type 2, insulin dependent: Will continue with insulin. Will monitor and adjust appropriately. Patient on sliding scale. Peripheral vascular disease: Surgery reports history of peripheral vascular disease. Tobacco cessation addressed in detail. Depression with anxiety: Will continue with medication. Will monitor and adjust appropriately. Diabetic neuropathy: Will continue to provide medication for pain. Patient responding well to Neurontin. Will increase Neurontin to 300 mg 1 pill twice daily. Thrombocytopenia likely related to alcoholic cirrhosis: Thrombocytopenia improved. Will restart DVT prophylaxis. Will continue with diuresis for alcoholic cirrhosis. Will order paracentesis for tomorrow. Tobacco abuse: Tobacco cessation education provided. Anemia likely of chronic disease: Will continue to monitor closely. Time Spent Managing Pts Care (In Minutes): 55
--- NOTE | 2018-03-12 17:22 | P.CNS ---
Date of Consult: 03/12/18 Primary Care Provider: Sunni Huff NP Chief Complaint: Shortness of breath History of Present Illness: Patient is 42 years of age with multiple medical problems recently had a right hip replaced and has fallen patient also has neuropathy of her feet necrotic toes on the right side possibly hematoma on the left side patient in addition has had cirrhosis of the liver from all alcohol abuse no history of hepatitis also complaining of abdominal swelling binge denies any cough sputum hemoptysis or chest pain no prior history of bleeding room-air sats are lower no prior history of smoking no history of cardiac disease chest x-rays very abnormal shows bilateral opacities Allergies acetaminophen [From Tylenol] Allergy (Verified 02/23/18 17:24) Nausea/Vomiting Penicillins Allergy (Verified 02/23/18 17:24) Nausea/Vomiting Home Medications: Amitriptyline [Elavil*] 25 mg PO BEDTIME 02/02/18 Fluoxetine HCl [Prozac] 40 mg PO DAILY 02/02/18 Pantoprazole [Protonix Tab*] 40 mg PO [id number] 02/02/18 Gabapentin [Neurontin*] 100 mg PO BID #60 cap 02/06/18 Insulin Glargine,Hum.rec.anlog [Toujeo Solostar] 25 unit SQ [id number] #1 insuln.pen 02/06/18 Alendronate Sodium [Fosamax] 70 mg PO DIRECTED 02/23/18 Insulin Glargine,Hum.rec.anlog [Toujeo Solostar] 25 units SQ DAILY 02/23/18 Iron 65 mg PO BID 02/23/18 - Past Medical/Surgical History Diabetic: Yes -: Diabetes mellitus type 2, insulin dependent -: Tobacco abuse -: Diabetic neuropathy -: Depression -: Insomnia -: neuropathy -: cirrhosis -: Cholecystectomy Psychosocial/ Personal History: Patient is . She has 5 children. 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 - Family History Mother Medical History: Heart disease, Diabetes - Social History Smoking Status: Unknown if ever smoked Alcohol use: No CD- Drugs: No Caffeine use: No Place of Residence: Home Review of Systems General: Weakness Respiratory: Shortness of Breath Gastrointestinal: Distention Integumentary: Other (History of osteomyelitis of the feet) Physical Examination Temp Pulse Resp BP Pulse Ox 97.4 F 74 18 103/60 98 03/12/18 08:00 03/12/18 16:00 03/12/18 16:00 03/12/18 16:00 03/12/18 16:00 General: Alert, Oriented x3, Mild distress HEENT: Atraumatic, PERRLA Respiratory: Clear to auscultation bilaterally Cardiovascular: No edema, Normal S1 S2 Gastrointestinal: Normal bowel sounds Musculoskeletal: Other (Patient appears 7 infection of her toes on the right side appears to have a hematoma) - Problems (1) Shortness of breath Current Visit: Yes Status: Acute Plan: Patient is 42 years of age admitted with shortness of breath bilateral pulmonary opacities most likely pulmonary edema doubt pulmonary embolism patient has cirrhosis of the liver with ascites avoid anticoagulation agree with diuresis I have also ordered an echocardiogram patient also has renal insufficiency in addition patient has bilateral osteomyelitis of both feet fracture on the left side scheduled to have surgery done tomorrow agree with Lasix patient is on broad-spectrum antibiotics all labs reviewed including x- ray reports no evidence of deep venous thrombosis mild peripheral vascular disease most mostly distal
--- NOTE | 2018-03-12 17:47 | EKG ---
Test Date: 2018-03-12 Test Time: 09:21:18 [employer] Teacher: DANNA MEASUREMENT RESULTS: Intervals: Rate: 81 WI: 178 QRSD: 102 QT: 400 QTc: 464 [place]: P: 50 WI: 178 QRS: 0 T: 49 INTERPRETIVE STATEMENTS: Normal sinus rhythm Low voltage QRS Borderline ECG Compared to ECG 03/04/2018 14:19:03 Low QRS voltage now present Electronically Signed On 03-12-18 17:47:03 [employer]OMAT CAR ATTENDANT by Ruslan Chan
--- NOTE | 2018-03-12 17:50 | ECHO ---
HEIGHT: 5 ft 6 in WEIGHT: 137 lb 0 oz DATE OF STUDY: 03/12/[address]: Boaz Grajeda DO 2-DIMENSIONAL: YES M.MODE: YES DOPPLER: YES COLOR FLOW: YES TDS: PORTABLE: DEFINITY: BUBBLE STUDY: DIAGNOSIS: PULMONARY EDEMA CARDIAC HISTORY: CATHERIZATION: NO SURGERY: NO PROSTHETIC VALVE: NO PACEMAKER: NO MEASUREMENTS (cm) DIASTOLIC (NORMALS) SYSTOLIC (NORMALS) IVSd 0.9 (0.6-1.2) LA Diam 3.3 (1.9-4.0) LVEF 67% LVIDd 4.0 (3.5-5.7) LVIDs 2.5 (2.0-3.5) %FS 37% LVPWd 0.8 (0.6-1.2) Ao Diam 2.6 (2.0-3.7) 2 DIMENSIONAL ASSESSMENT: RIGHT ATRIUM: NORMAL LEFT ATRIUM: NORMAL RIGHT VENTRICLE: NORMAL LEFT VENTRICLE: NORMAL TRICUSPID VALVE: NORMAL MITRAL VALVE: NORMAL PULMONIC VALVE: NORMAL AORTIC VALVE: NORMAL PERICARDIAL EFFUSION: NONE AORTIC ROOT: NORMAL LEFT VENTRICULAR WALL MOTION: NORMAL DOPPLER/COLOR FLOW: TRACE TRICUSPID REGURGITATION. NORMAL RIGHT VENTRICULAR SYSTOLIC PRESSURE. COMMENTS: NORMAL TWO DIMENSIONAL ECHOCARDIOGRAM. TRACE TRICUSPID REGURGITATION. TECHNOLOGIST: CHASE ZIMMERMAN
--- NOTE | 2018-03-12 18:12 | CON ---
Date of Consultation: 03/12/2018 Reason For Consultation: Elevated BUN and creatinine, fluid management. History Of Present Illness: This is a pleasant 42-year-old female with significant past medical hist ory of cirrhosis according to her secondary to alcoholic liver disease, diabetes complicated with mau ropathy, no retinopathy, hyperlipidemia, no coronary artery disease, has cardiac murmur. The patient was in her regular state of health. Recently admitted to the hospital for pancreatitis and hip frac ture on the left. The patient apparently, she was released pen,, then she readmitted to our hospital on February 23 with foot infection, suspect of osteomyelitis. For that reason, the patient was st arted on antibiotic. Gradually, the patient started having elevation in BUN and creatinine. For staci t reason, we have been consulted. Reviewing the record, the patient's creatinine was within normal l imits up to February 28, then gradually started rising up to 3.1 on March 06, then after that s tarted dropping down. The patient's GFR on admission, normal GFR. Then on the started declinin g, then reached GFR of 16. Now, on the recovery. The patient yesterday was given Lasix. Had good u rine output of 700 and today given another dose of Lasix, so far she has around another 700. Reviewi ng the record for the patient, the patient being on vancomycin and Zosyn. There is no contrast expos ure during this hospitalization, but there is incident of low blood pressure on the 27 of February and on the blood pressure was down to the 80s. Has urine output. The patient maintained good u rine output since admission, but documented weight has been stable, but the patient complaining some increased abdominal girth. Medication douglas, the patient received Lasix, Zosyn, clindamycin, she was placed on Bactrim on March 08. There is no other insulting medication. Past Medical History: 1.Diabetes. 2.Heart murmur. 3.Cirrhosis secondary to alcoholic liver disease. 4.Pancreatitis. Social History: Ex-alcohol. Denies drugs abuse. Denies smoking. Family History: Positive for diabetes and end-stage renal disease. Allergies: TO PENICILLIN AND TYLENOL. Home Medications: Include amitriptyline, fluoxetine, pantoprazole, gabapentin, alendronate, insulin, iron. Review of Systems: Head and Neck: No red eye. No ear pain. GI: Has nausea. Has increased abdominal girth. 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 Respiratory: Has shortness of breath. Cardiovascular: Has leg swelling. Endocrine: No polydipsia. Skin: No rash. Has necrotic change on the tip of the finger. Neuro: Has neuropathy. Musculoskeletal: Has hip pain. Physical Examination: Vital Signs: Blood pressure 101/71, pulse of 72, afebrile. Chest: Crackles bilateral. Heart: S1, S2. Systolic murmur. Abdomen: Ascites. Extremities: +1 edema. Dressing on both legs with subcutaneous bleed on both toes. Laboratory Data: Sodium 137, potassium 4.4, bicarb 24, BUN 32, creatinine 2, GFR of 27, calcium 7.5. TSH of 0.7. WBC 11.1, hemoglobin and hematocrit 8.9 and 26.5, platelets 134, eosinophil of 7.1, ab solute count of eosinophil is 800. Current Medications: Include Zosyn, vancomycin, Lovenox, Lasix 20, loperamide, Zofran, pantoprazole, insulin, alendronate, tramadol. Assessment And Plan: 1.Acute kidney injury secondary to cardiorenal over volume. Obstruction has been ruled out with poo r perfusion, acute tubular necrosis secondary to low blood pressure, questionable AIN secondary to Zo syn. I am going to go ahead and discontinue the Zosyn and place the patient on meropenem and we will follow up the patient. I am going to send for urine eosinophil. We will send for urine electrolyte s and I agree with Lasix and we will monitor the patient. 2.Hypertension, currently hypotension. We will utilize blood pressure for more diuresis. Hold randee dronate given the acute kidney injury. 3.Cirrhosis with ascites. Consider paracentesis. 4.Shortness of breath secondary to over volume. We will start diuresing the patient. 5.Osteomyelitis. Agree with vancomycin. We will follow up vancomycin trough. We will switch Zosyn to meropenem and we will follow up. 6.Diabetes as by primary. MA/MODL Voice ID: [id number] Report ID: [id number]
[2018-03-12] MEDS ORDERED: Meropenem 500 MG VIAL IV SCH (21:00)
[2018-03-12] MEDS: AMITRIPTYLINE 25 MG TAB PO SCH (21:11)
[2018-03-12] MEDS: VANCOMYCIN/NS 1 gm 1 GM/250 ML BAG IVPB SCH (21:12)
[2018-03-12] MEDS: NA CHLORIDE 0.9% IV SCH (21:13)
[2018-03-12] MEDS: FUROSEMIDE IV SCH (21:13)
[2018-03-13 05:17] LABS: Absolute Lymphocytes (CBC) 0.7 K/uL (0.7-4.9); Absolute Monocytes 1.1 K/uL (0.1-1.3); Absolute Neutrophil 8.4 K/uL (1.8-8.0); Basophils % 0.4 % (0-1.3); Eosinophils % 6.8 % (0-4.4); Lymphocytes % 6.1 % (15.3-44.8); MPV 8.4 fL (7.6-11.3); Monocytes % 9.8 % (3.3-12.3); RBC Red Blood Cell Count 2.98 M/uL (3.86-4.86)
[2018-03-13 05:27] LABS: Albumin 1.5 g/dL (3.4-5.0); Bilirubin Total 0.9 mg/dL (0.2-1.0); Phosphorus 3.4 mg/dL (2.5-4.9); Potassium 4.1 mmol/L (3.5-5.1); Protein, Total 6.1 g/dL (6.4-8.2)
[2018-03-13] MEDS: PANTOPRAZOLE 40MG TABLET PO SCH (06:00)
[2018-03-13] MEDS: INSULIN -REGULAR HUMAN 50 UNIT/0.5 ML ML SQ SCH ×4 (07:30→20:21)
[2018-03-13] MEDS: INSULIN GLARGINE 100 UNITS/ML SQ SCH (07:42)
[2018-03-13] MEDS: GLUCERNA SHAKE 237 ML CAN PO SCH ×2 (07:42→20:22)
[2018-03-13] MEDS: NA CHLORIDE 0.9% IV SCH ×2 (09:00→21:00)
[2018-03-13] MEDS: PROMOD 30 ML DOSE PO SCH ×3 (09:00→21:00)
[2018-03-13] MEDS: FERROUS SULFATE 325 MG TAB PO SCH (09:00)
[2018-03-13] MEDS: MEDIHONEY 44 ML TOPICAL TUBE TOP SCH (09:00)
[2018-03-13] MEDS: FUROSEMIDE IV SCH ×2 (09:00→21:00)
[2018-03-13] MEDS: FLUOXETINE 20 MG CAP PO SCH (09:00)
[2018-03-13] MEDS: SILVER SULFADIAZINE 1% 50 GM TOP SCH (09:00)
--- NOTE | 2018-03-13 09:22 | P.PN ---
Subjective Date of Service: 03/13/18 Primary Care Provider: Sunni Huff NP Chief Complaint: Shortness of breath Subjective: Improving Physical Examination - Vital Signs Temperature: 98.5 F Blood Pressure: 97/58 Pulse: 80 Respirations: 17 Pulse Ox (%): 99 - Physical Exam General: Alert, In no apparent distress, Cooperative Respiratory: Normal air movement Integumentary: Other (LEFT toe blister was removed at bedside, clean tissue remains, right great toe dorsal dry escar is stable, no erythema to either foot) - Studies Medications List Reviewed: Yes Assessment And Plan - Current Problems (Diagnosis) (1) Bilateral lower leg cellulitis Onset Date: 02/25/18 Current Visit: Yes Status: Acute Plan: - recommend 6 week course of antibiotics for osteomyelitis - I have discussed surgery, but due to comorbid conditions and non-compliance, i feel surgery will not be as successful at this time - continue wound care Physician Review Additional Text: Impression: Dyspnea secondary to pulmonary edema with possible underlying pneumonia Ascites with noted chronic alcohol cirrhosis Acute on chronic renal failure stage IV likely related to medication Bilateral cellulitis to the lower extremity with noted moderate osteomyelitis to the base of the proximal right phalanx on the 5th toe, medial aspect of the 5th metatarsal head, and the majority of the 4th metatarsal head along with moderate osteomyelitis with underlying fracture of the left proximal phalanx of the 5th toe Recent fall with right femoral fracture status post repair postop day 7 Diabetes mellitus type 2, insulin dependent Peripheral vascular disease Depression with anxiety Diabetic neuropathy Thrombocytopenia likely related to alcoholic cirrhosis Tobacco abuse Anemia likely of chronic disease Plan: Dyspnea secondary to pulmonary edema with possible underlying pneumonia: Patient sent to the ICU for close monitoring. Patient given IV Lasix with improvement. Will continue with Lasix. Case discussed at length with nephrology. Will consult pulmonology to further evaluate. IV antibiotic therapy has been adjusted. Zosyn discontinued now on meropenem. Will monitor chest x-ray. Will wean off oxygen. Will start DVT prophylaxis. Will need to evaluate for possible pulmonary embolism. Will discuss case further with pulmonology. Ascites with noted at chronic alcohol cirrhosis: Will Dc IV fluids. Will continue with Lasix IV. Will have abdominal ultrasound-guided paracentesis tomorrow. Acute on chronic renal disease stage IV: This is likely exacerbated by medication. Case discussed with nephrology. Will discontinue Zosyn. Continue with Lasix. Will monitor renal function closely. Status post fall leading to right femoral fracture status post repair postop day 7: Will hold physical therapy at this time. Bilateral cellulitis to the lower extremity with noted moderate osteomyelitis to the base of the proximal right phalanx on the 5th toe, medial aspect of the 5th metatarsal head, and the majority of the 4th metatarsal head along with moderate osteomyelitis with underlying fracture of the left proximal phalanx of the 5th toe: Case discussed with surgery. Will hold off on surgery at this time. Will continue with vancomycin. Zosyn discontinued due to renal failure. Diabetes mellitus type 2, insulin dependent: Will continue with insulin. Will monitor and adjust appropriately. Patient on sliding scale. Peripheral vascular disease: Surgery reports history of peripheral vascular disease. Tobacco cessation addressed in detail. Depression with anxiety: Will continue with medication. Will monitor and adjust appropriately. Diabetic neuropathy: Will continue to provide medication for pain. Patient responding well to Neurontin. Will increase Neurontin to 300 mg 1 pill twice daily. Thrombocytopenia likely related to alcoholic cirrhosis: Thrombocytopenia improved. Will restart DVT prophylaxis. Will continue with diuresis for alcoholic cirrhosis. Will order paracentesis for tomorrow. Tobacco abuse: Tobacco cessation education provided. Anemia likely of chronic disease: Will continue to monitor closely.
--- NOTE | 2018-03-13 09:48 | RAD REPORT ---
EXAM DESCRIPTION: [facility] Single View03/13/2018 8:31 am CLINICAL HISTORY: Shortness of breath COMPARISON: March 12 FINDINGS: No change in bilateral pulmonary opacities. Heart is normal size. PICC line remains place IMPRESSION: No change in bilateral pulmonary opacities
[2018-03-13] MEDS: Meropenem 500 MG in NA CHLORIDE 0.9% 100 ML IV SCH ×2 (10:15→21:00)
[2018-03-13] MEDS ORDERED: ALBUMIN HUMAN 25% 100 ML IV ONE (10:17)
[2018-03-13] MEDS ORDERED: MIDODRINE HCL 5 MG TABLET PO ONE (10:17)
--- NOTE | 2018-03-13 11:58 | PN ---
Date of Progress Note: 03/13/2018 Subjective: The patient doing slightly better. Still have shortness of breath. Responds very well to diuresis yesterday. Physical Examination: Vital Signs: Blood pressure down to 87/58, pulse of 80, afebrile. Chest: Crackles bilateral. Heart: S1 and S2. Systolic murmur. Abdomen: Ascites. Extremities: +1 edema. Neurologic: Alert and oriented x3. The patient had urine output of 2700. The patient was negative of 1200. Laboratory Data: WBC 10.9, H and H 8.8/26, and platelet 149. Sodium 137, potassium 4.1, bicarb 25, BUN 32, creatinine down to 2, GFR of 27, calcium 7.6, phosphorus 3.4, albumin 1.5, corrected calcium is 9.6. LFT slight elevation in alkaline phosphatase. TSH of 0.7, protein creatinine 0.6. vancomyc in trough of 18. We still pending urine eosinophil. Current Medications: The patient on its include: Meropenem 500 b.i.d., vancomycin 1 g every 36 hour s, ferrous sulfate oral, Lasix 20 mg b.i.d., Zofran, loperamide, pantoprazole, tramadol. The patient being scheduled for paracentesis today. Chest x-ray; congestion with cardiomegaly. Assessment And Plan: 1.Acute kidney injury secondary to hepatorenal/cardiorenal over volume, nonoliguric, still a questio nable of AIN. I am going to continue to utilize the blood pressure for more diuresis. We will start the patient on midodrine and we will monitor the patient. 2.Hypertension, currently hypotension secondary to cirrhosis. We will start the patient on midodrin e. Continue current dose of Lasix. We will use albumin to mobilize the fluid from third space. 3.Cirrhosis with ascites. Plan for paracentesis today. 4.Respiratory failure, congestive heart failure, pulmonary edema. Continue diuresis. 5.Anemia of chronic kidney disease/secondary to chronic disease, secondary to cirrhosis with iron-de ficiency anemia. I am going to start the patient on IV iron. 6.Osteomyelitis, status post debridement. Continue current antibiotic. We will follow up with ID. Dose adjusted. Follow up vancomycin trough. 7.Diabetes, stable. Follow up with primary. MA/MODL Voice ID: [id number] Report ID: [id number]
[2018-03-13] MEDS: SOD FERRIC GLUC COMPLX/SUCROSE 250 MG in NA CHLORIDE 0.9% 250 ML IV SCH (12:38)
--- NOTE | 2018-03-13 12:39 | RAD REPORT ---
EXAM DESCRIPTION: US - Paracentesis Proc Guidance - 03/13/2018 12:32 pm CLINICAL HISTORY: Ascities Ascites COMPARISON: No comparisons FINDINGS: Informed consent was obtained and time-out was performed. Patient's abdomen was prepped and draped in the usual sterile fashion. 1% lidocaine was used for loca l anesthetic purposes. A small skin incision was made. A paracentesis catheter was guided into the peroneal cavity under son ographic guidance. A large volume paracentesis was performed. The patient tolerated the procedure well. IMPRESSION: Successful ultrasound-guided paracentesis.
[2018-03-13] MEDS: TRAMADOL HCL 50 MG TAB PO PRN ×2 (13:09→20:20)
--- NOTE | 2018-03-13 15:36 | P.PN ---
Subjective Date of Service: 03/13/18 Primary Care Provider: Sunni Huff NP Chief Complaint: Shortness of breath Subjective: Other (Patient much improved since yesterday) Physical Examination - Vital Signs Temperature: 98.5 F Blood Pressure: 129/72 Pulse: 79 Respirations: 16 Pulse Ox (%): 98 - Physical Exam General: Alert, In no apparent distress, Oriented x3, Cooperative HEENT: Atraumatic Neck: Supple Respiratory: Diminished (To the lower bases), Other (Better air movement bilateral) Cardiovascular: Normal pulses, Regular rate/rhythm Gastrointestinal: Normal bowel sounds, Soft and benign, No tenderness, No masses , No rebound, No guarding, Ascites (Still present but slightly improved) Musculoskeletal: No erythema, No tenderness, No warmth Integumentary: No erythema, No warmth, No cyanosis, Other (Blister removed from left toe.) Neurological: Normal speech, Normal strength at 5/5 x4 extr, Normal tone, Normal affect - Studies Medications List Reviewed: Yes Assessment & Plan Discharge Plan: Other (High-level skilled facility) Plan to discharge in: Greater than 2 days Physician Review Additional Text: Impression: Dyspnea secondary to pulmonary edema with possible underlying pneumonia Ascites with noted chronic alcohol cirrhosis Acute on chronic renal failure stage IV likely related to medication Bilateral cellulitis to the lower extremity with noted moderate osteomyelitis to the base of the proximal right phalanx on the 5th toe, medial aspect of the 5th metatarsal head, and the majority of the 4th metatarsal head along with moderate osteomyelitis with underlying fracture of the left proximal phalanx of the 5th toe Recent fall with right femoral fracture status post repair postop day 8 Diabetes mellitus type 2, insulin dependent Peripheral vascular disease Depression with anxiety Diabetic neuropathy Thrombocytopenia likely related to alcoholic cirrhosis Tobacco abuse Anemia likely of chronic disease Plan: Dyspnea secondary to pulmonary edema: Patient improved with diuresis. Will continue with diuresis. Doubt pneumonia at this time. Patient on IV antibiotic therapy, broad-spectrum to cover multiple issues. Case discussed with nephrology. Patient will get paracentesis today. Blood pressure slightly low. Patient will get midodrine and albumin. Will continue to monitor closely. Pulmonology recommends to discontinue DVT prophylaxis with Lovenox due to underlying cirrhosis. Will continue to reassess. If improved patient can be transitioned to the floor likely tomorrow. Will continue with case management to further evaluate long-term plan of care likely high-level skilled facility. Ascites with noted at chronic alcohol cirrhosis: Continue as above. Paracentesis planned for today. Acute on chronic renal disease stage IV: This is likely exacerbated by medication. Case discussed with nephrology. Will continue with recommendations by nephrology. Patient to be started on midodrine and albumin. Status post fall leading to right femoral fracture status post repair postop day 8: Will hold physical therapy at this time. Once the patient is able to go to the floor then will restart physical therapy. Bilateral cellulitis to the lower extremity with noted moderate osteomyelitis to the base of the proximal right phalanx on the 5th toe, medial aspect of the 5th metatarsal head, and the majority of the 4th metatarsal head along with moderate osteomyelitis with underlying fracture of the left proximal phalanx of the 5th toe: Case discussed with surgery. Blister to left over removed. No need for further surgical intervention. Will continue with antibiotic therapy. Diabetes mellitus type 2, insulin dependent: Will continue with insulin. Will monitor and adjust appropriately. Patient on sliding scale. Peripheral vascular disease: Surgery reports history of peripheral vascular disease. Tobacco cessation addressed in detail. Depression with anxiety: Will continue with medication. Will monitor and adjust appropriately. Diabetic neuropathy: Will continue to provide medication for pain. Patient responding well to Neurontin. Will increase Neurontin to 300 mg 1 pill twice daily. Thrombocytopenia likely related to alcoholic cirrhosis: Thrombocytopenia improved. Lovenox discontinued due to alcoholic cirrhosis. Paracentesis planned for today. Tobacco abuse: Tobacco cessation education provided. Anemia likely of chronic disease: Will continue to monitor closely. Time Spent Managing Pts Care (In Minutes): 55
[2018-03-13] MEDS: ONDANSETRON 4 MG/2 ML VIAL IV PRN (16:44)
[2018-03-13] MEDS: AMITRIPTYLINE 25 MG TAB PO SCH (20:21)
[2018-03-14 05:13] LABS: Absolute Lymphocytes (CBC) 0.7 K/uL (0.7-4.9); Absolute Monocytes 0.9 K/uL (0.1-1.3); Absolute Neutrophil 8.4 K/uL (1.8-8.0); Basophils % 0.8 % (0-1.3); Eosinophils % 5.5 % (0-4.4); Hematocrit 26.3 % (36.0-45.0); MPV 8.2 fL (7.6-11.3); Monocytes % 8.7 % (3.3-12.3); RBC Red Blood Cell Count 3.04 M/uL (3.86-4.86)
[2018-03-14 05:35] LABS: Albumin 1.7 g/dL (3.4-5.0); Bilirubin Total 0.9 mg/dL (0.2-1.0); Phosphorus 3.1 mg/dL (2.5-4.9); Potassium 4.2 mmol/L (3.5-5.1); Protein, Total 6.2 g/dL (6.4-8.2)
[2018-03-14 06:36] LABS: Magnesium 2.1 mg/dL (1.8-2.4)
[2018-03-14] MEDS: PANTOPRAZOLE 40MG TABLET PO SCH (07:05)
[2018-03-14] MEDS: INSULIN -REGULAR HUMAN 50 UNIT/0.5 ML ML SQ SCH ×4 (07:30→20:39)
[2018-03-14] MEDS: PROMOD 30 ML DOSE PO SCH ×2 (09:00→20:40)
[2018-03-14] MEDS: NA CHLORIDE 0.9% IV SCH (09:00)
[2018-03-14] MEDS: MEDIHONEY 44 ML TOPICAL TUBE TOP SCH (09:00)
[2018-03-14] MEDS: FUROSEMIDE IV SCH (09:00)
[2018-03-14] MEDS: GLUCERNA SHAKE 237 ML CAN PO SCH ×2 (09:00→20:39)
--- NOTE | 2018-03-14 09:05 | RAD REPORT ---
EXAM DESCRIPTION: RAD - Chest Single View - 03/14/2018 6:20 am CLINICAL HISTORY: SOB Chest pain. COMPARISON: Chest Single View dated 03/13/2018; Chest Single View dated 03/12/2018; Abdomen 1 View ( [facility]) dated 03/11/2018; Chest Single View dated 03/11/2018 FINDINGS: Portable technique limits examination quality. Mild bilateral pulmonary opacities are again noted, demonstrating mild improvement since comparative study. The heart is normal in size. Left-sided PICC line has tip in the SVC. IMPRESSION: Mild improvement in lung aeration since comparative study.
--- NOTE | 2018-03-14 09:56 | P.PN ---
Subjective Date of Service: 03/14/18 Primary Care Provider: Sunni Huff NP Chief Complaint: bilateral feet wounds Subjective: Improving feet wounds are dry, no evidence of cellulitis or active infection Physical Examination - Vital Signs Temperature: 97.1 F Blood Pressure: 113/53 Pulse: 69 Respirations: 17 Pulse Ox (%): 97 - Physical Exam General: Alert, In no apparent distress, Cooperative Integumentary: Other (skin of bilateral feet is improved, escar is stable on right great toe, left great toe is clean, no infection) - Studies Medications List Reviewed: Yes Assessment And Plan - Current Problems (Diagnosis) (1) Bilateral lower leg cellulitis Onset Date: 02/25/18 Current Visit: Yes Status: Acute Plan: - recommend 6 week course of antibiotics for osteomyelitis - I have discussed surgery, but due to comorbid conditions and non-compliance, i feel surgery will not be as successful at this time - continue wound care - will sign off for now, recall if symptoms recur Physician Review Additional Text: Impression: Dyspnea secondary to pulmonary edema with possible underlying pneumonia Ascites with noted chronic alcohol cirrhosis Acute on chronic renal failure stage IV likely related to medication Bilateral cellulitis to the lower extremity with noted moderate osteomyelitis to the base of the proximal right phalanx on the 5th toe, medial aspect of the 5th metatarsal head, and the majority of the 4th metatarsal head along with moderate osteomyelitis with underlying fracture of the left proximal phalanx of the 5th toe Recent fall with right femoral fracture status post repair postop day 8 Diabetes mellitus type 2, insulin dependent Peripheral vascular disease Depression with anxiety Diabetic neuropathy Thrombocytopenia likely related to alcoholic cirrhosis Tobacco abuse Anemia likely of chronic disease Plan: Dyspnea secondary to pulmonary edema: Patient improved with diuresis. Will continue with diuresis. Doubt pneumonia at this time. Patient on IV antibiotic therapy, broad-spectrum to cover multiple issues. Case discussed with nephrology. Patient will get paracentesis today. Blood pressure slightly low. Patient will get midodrine and albumin. Will continue to monitor closely. Pulmonology recommends to discontinue DVT prophylaxis with Lovenox due to underlying cirrhosis. Will continue to reassess. If improved patient can be transitioned to the floor likely tomorrow. Will continue with case management to further evaluate long-term plan of care likely high-level skilled facility. Ascites with noted at chronic alcohol cirrhosis: Continue as above. Paracentesis planned for today. Acute on chronic renal disease stage IV: This is likely exacerbated by medication. Case discussed with nephrology. Will continue with recommendations by nephrology. Patient to be started on midodrine and albumin. Status post fall leading to right femoral fracture status post repair postop day 8: Will hold physical therapy at this time. Once the patient is able to go to the floor then will restart physical therapy. Bilateral cellulitis to the lower extremity with noted moderate osteomyelitis to the base of the proximal right phalanx on the 5th toe, medial aspect of the 5th metatarsal head, and the majority of the 4th metatarsal head along with moderate osteomyelitis with underlying fracture of the left proximal phalanx of the 5th toe: Case discussed with surgery. Blister to left over removed. No need for further surgical intervention. Will continue with antibiotic therapy. Diabetes mellitus type 2, insulin dependent: Will continue with insulin. Will monitor and adjust appropriately. Patient on sliding scale. Peripheral vascular disease: Surgery reports history of peripheral vascular disease. Tobacco cessation addressed in detail. Depression with anxiety: Will continue with medication. Will monitor and adjust appropriately. Diabetic neuropathy: Will continue to provide medication for pain. Patient responding well to Neurontin. Will increase Neurontin to 300 mg 1 pill twice daily. Thrombocytopenia likely related to alcoholic cirrhosis: Thrombocytopenia improved. Lovenox discontinued due to alcoholic cirrhosis. Paracentesis planned for today. Tobacco abuse: Tobacco cessation education provided. Anemia likely of chronic disease: Will continue to monitor closely.
[2018-03-14] MEDS: TRAMADOL HCL 50 MG TAB PO PRN (10:42)
[2018-03-14] MEDS: FLUOXETINE 20 MG CAP PO SCH (10:43)
[2018-03-14] MEDS: MIDODRINE HCL 5 MG TABLET PO SCH (10:43)
[2018-03-14] MEDS: INSULIN GLARGINE 100 UNITS/ML SQ SCH (10:46)
[2018-03-14] MEDS: SILVER SULFADIAZINE 1% 50 GM TOP SCH (11:00)
[2018-03-14] MEDS: Meropenem 500 MG in NA CHLORIDE 0.9% 100 ML IV SCH ×2 (11:00→20:39)
--- NOTE | 2018-03-14 11:04 | P.PN ---
Subjective Date of Service: 03/14/18 Primary Care Provider: Sunni Huff NP Chief Complaint: bilateral feet wounds Subjective: Other (Patient still with difficulty swallowing. She feels better overall. Patient had paracentesis yesterday.) Physical Examination - Vital Signs Temperature: 97.1 F Blood Pressure: 98/58 Pulse: 72 Respirations: 12 Pulse Ox (%): 97 - Physical Exam General: Alert, In no apparent distress, Oriented x3, Cooperative HEENT: Atraumatic, Other (Whitish thrush like particles noted to the oral cavity ) Neck: Supple Respiratory: Clear to auscultation bilaterally, Normal air movement Cardiovascular: Normal pulses, Regular rate/rhythm Gastrointestinal: Normal bowel sounds, Soft and benign, Non-distended, No tenderness, No masses, No rebound, No guarding, Ascites (Significantly improved with paracentesis yesterday) Integumentary: Tenderness/swelling (1 to 2+ pitting edema to the lower extremities.), Other (Wounds noted to the feet improved.) Neurological: Normal speech, Normal strength at 5/5 x4 extr, Normal tone, Normal affect - Studies Medications List Reviewed: Yes Assessment & Plan Discharge Plan: Other (High-level skilled facility) Plan to discharge in: Greater than 2 days Physician Review Additional Text: Impression: Dyspnea secondary to pulmonary edema with possible underlying pneumonia Ascites with noted chronic alcohol cirrhosis Acute on chronic renal failure stage IV likely related to medication Bilateral cellulitis to the lower extremity with noted moderate osteomyelitis to the base of the proximal right phalanx on the 5th toe, medial aspect of the 5th metatarsal head, and the majority of the 4th metatarsal head along with moderate osteomyelitis with underlying fracture of the left proximal phalanx of the 5th toe Recent fall with right femoral fracture status post repair postop day 9 Diabetes mellitus type 2, insulin dependent Oral candidiasis Peripheral vascular disease Depression with anxiety Diabetic neuropathy Thrombocytopenia likely related to alcoholic cirrhosis Tobacco abuse Anemia likely of chronic disease Plan: Dyspnea secondary to pulmonary edema: Patient significantly improved with diuresis. Will continue with diuresis. Case discussed with pulmonology and nephrology. Will wean off oxygen. Patient had paracentesis yesterday. DVT prophylaxis discontinued due to underlying cirrhosis. Will transfer patient to the floor. Will have physical therapy assess tomorrow. Once improved then will need to work with social media marketer to consider high-level skilled placement. Ascites with noted at chronic alcohol cirrhosis: Continue as above. Paracentesis done yesterday. Ascites improved. Acute on chronic renal disease stage IV: This is likely exacerbated by medication. Case discussed with nephrology. Will continue with recommendations by nephrology. Continue with diuresis. Status post fall leading to right femoral fracture status post repair postop day 9: Will hold physical therapy at this time. Once the patient is able to go to the floor then will restart physical therapy. This will likely occur tomorrow Bilateral cellulitis to the lower extremity with noted moderate osteomyelitis to the base of the proximal right phalanx on the 5th toe, medial aspect of the 5th metatarsal head, and the majority of the 4th metatarsal head along with moderate osteomyelitis with underlying fracture of the left proximal phalanx of the 5th toe: Case discussed with surgery. Blister to left toe removed. No need for further surgical intervention. Will continue with antibiotic therapy. Patient will need to continue with IV antibiotic therapy for a total of 6 weeks. Patient currently on meropenem and vancomycin. Oral candidiasis: Will start Diflucan. Diabetes mellitus type 2, insulin dependent: Will continue with insulin. Will monitor and adjust appropriately. Patient on sliding scale. Peripheral vascular disease: Surgery reports history of peripheral vascular disease. Tobacco cessation addressed in detail. Depression with anxiety: Will continue with medication. Will monitor and adjust appropriately. Diabetic neuropathy: Will continue to provide medication for pain. Patient responding well to Neurontin. Continue with Neurontin Thrombocytopenia likely related to alcoholic cirrhosis: Thrombocytopenia improved. Lovenox discontinued due to alcoholic cirrhosis. Paracentesis planned for today. Tobacco abuse: Tobacco cessation education provided. Anemia likely of chronic disease: Will continue to monitor closely. Time Spent Managing Pts Care (In Minutes): 55
[2018-03-14] MEDS: ONDANSETRON 4 MG/2 ML VIAL IV PRN (11:37)
[2018-03-14] MEDS: FLUCONAZOLE 100mg IVPB 100 MG/50 ML BAG IV SCH (12:58)
--- NOTE | 2018-03-14 14:23 | PN ---
Date of Progress Note: 03/14/2018 Subjective: The patient doing much better. Apparently, the patient did not receive Lasix yesterday because of low blood pressure, but she underwent paracentesis managed to remove 3 L. The patient con tinued to have good urine output. Blood pressure stabilized after adding midodrine. Physical Examination: Vital Signs: Blood pressure 98/58, pulse of 72, afebrile. The patient had urine output of 2700. Th e patient was negative of 1200. Chest: Faint crackles, more prominent right base. Heart: S1, S2. Systolic murmur. Abdomen: Ascites, but much softer than yesterday. Extremities: +1 edema. Laboratory Data: WBC 10.7, hemoglobin and hematocrit 8.9 and 26.3, platelet 165. Sodium 138, potass ium 4.2, bicarb 27, BUN 30, creatinine 2, calcium 7.8, phosphorus 3.1, magnesium of 2.1. Current Medications: The patient on is include: 1.Meropenem. 2.Vancomycin. 3.Midodrine 5 mg daily. 4.IV iron. 5.Amitriptyline. 6.Prozac. 7.Lasix 20 mg q.12. 8.Tramadol. 9.Insulin. Assessment And Plan: 1.Acute kidney injury, multifactorial, cardiorenal/hepatorenal on chronic kidney disease, workup for AIN still pending. The patient plateaued being on current antibiotic for the last few days. The pa tient still over volume, but self diurese. I am going to go ahead and decrease the Lasix to once a d ay, okay to be giving as far blood pressure above 90 and we will monitor the patient. 2.Hypertension, currently hypotension secondary to cirrhosis. Continue midodrine. 3.Cirrhosis with ascites status post paracentesis. 4.Pulmonary edema. We will continue diuresis. 5.Foot infection. Continue current antibiotic we will follow up with primary. MARIANN/URBANO Voice ID: [id number] Report ID: [id number]
--- NOTE | 2018-03-14 15:52 | P.PN ---
Subjective Date of Service: 03/14/18 Primary Care Provider: Sunni Huff NP Chief Complaint: Respiratory does Subjective: Improving (Patient is improving shortness of breath has improved slight improvement in chest x-ray patient is on diuretic) Review of Systems General: Weakness Respiratory: Shortness of Breath Physical Examination - Vital Signs Temperature: 98.4 F Blood Pressure: 119/67 Pulse: 72 Respirations: 15 Pulse Ox (%): 98 - Physical Exam General: Alert, Oriented x3 Respiratory: Clear to auscultation bilaterally Cardiovascular: No edema - Studies Medications List Reviewed: Yes Assessment & Plan - Problems (Diagnosis) (1) Shortness of breath Current Visit: Yes Status: Acute Plan: Patient admitted with respiratory distress chest x-ray shows some improvement most likely volume overload normal echocardiogram labs reviewed creatinine stable at 2.0 white count is normal patient is mildly anemic vital signs stable patient is on Lasix Physician Review Additional Text: Impression: Dyspnea secondary to pulmonary edema with possible underlying pneumonia Ascites with noted chronic alcohol cirrhosis Acute on chronic renal failure stage IV likely related to medication Bilateral cellulitis to the lower extremity with noted moderate osteomyelitis to the base of the proximal right phalanx on the 5th toe, medial aspect of the 5th metatarsal head, and the majority of the 4th metatarsal head along with moderate osteomyelitis with underlying fracture of the left proximal phalanx of the 5th toe Recent fall with right femoral fracture status post repair postop day 9 Diabetes mellitus type 2, insulin dependent Oral candidiasis Peripheral vascular disease Depression with anxiety Diabetic neuropathy Thrombocytopenia likely related to alcoholic cirrhosis Tobacco abuse Anemia likely of chronic disease Plan: Dyspnea secondary to pulmonary edema: Patient significantly improved with diuresis. Will continue with diuresis. Case discussed with pulmonology and nephrology. Will wean off oxygen. Patient had paracentesis yesterday. DVT prophylaxis discontinued due to underlying cirrhosis. Will transfer patient to the floor. Will have physical therapy assess tomorrow. Once improved then will need to work with government services professional to consider high-level skilled placement. Ascites with noted at chronic alcohol cirrhosis: Continue as above. Paracentesis done yesterday. Ascites improved. Acute on chronic renal disease stage IV: This is likely exacerbated by medication. Case discussed with nephrology. Will continue with recommendations by nephrology. Continue with diuresis. Status post fall leading to right femoral fracture status post repair postop day 9: Will hold physical therapy at this time. Once the patient is able to go to the floor then will restart physical therapy. This will likely occur tomorrow Bilateral cellulitis to the lower extremity with noted moderate osteomyelitis to the base of the proximal right phalanx on the 5th toe, medial aspect of the 5th metatarsal head, and the majority of the 4th metatarsal head along with moderate osteomyelitis with underlying fracture of the left proximal phalanx of the 5th toe: Case discussed with surgery. Blister to left toe removed. No need for further surgical intervention. Will continue with antibiotic therapy. Patient will need to continue with IV antibiotic therapy for a total of 6 weeks. Patient currently on meropenem and vancomycin. Oral candidiasis: Will start Diflucan. Diabetes mellitus type 2, insulin dependent: Will continue with insulin. Will monitor and adjust appropriately. Patient on sliding scale. Peripheral vascular disease: Surgery reports history of peripheral vascular disease. Tobacco cessation addressed in detail. Depression with anxiety: Will continue with medication. Will monitor and adjust appropriately. Diabetic neuropathy: Will continue to provide medication for pain. Patient responding well to Neurontin. Continue with Neurontin Thrombocytopenia likely related to alcoholic cirrhosis: Thrombocytopenia improved. Lovenox discontinued due to alcoholic cirrhosis. Paracentesis planned for today. Tobacco abuse: Tobacco cessation education provided. Anemia likely of chronic disease: Will continue to monitor closely.
[2018-03-14] MEDS: AMITRIPTYLINE 25 MG TAB PO SCH (20:39)
[2018-03-14] MEDS: VANCOMYCIN/NS 1 gm 1 GM/250 ML BAG IVPB SCH (21:57)
[2018-03-15] MEDS: TRAMADOL HCL 50 MG TAB PO PRN ×3 (05:06→22:11)
[2018-03-15] MEDS: PANTOPRAZOLE 40MG TABLET PO SCH (05:06)
[2018-03-15] MEDS: ONDANSETRON 4 MG/2 ML VIAL IV PRN (05:07)
[2018-03-15 05:19] LABS: Albumin 1.7 g/dL (3.4-5.0); Phosphorus 2.8 mg/dL (2.5-4.9); Potassium 4.3 mmol/L (3.5-5.1)
--- NOTE | 2018-03-15 07:19 | RAD REPORT ---
EXAM DESCRIPTION: RAD - Chest Single View - 03/15/2018 6:14 am CLINICAL HISTORY: Shortness of breath COMPARISON: March 14March 13 TECHNIQUE: AP portable chest image was obtained [id number] hours . FINDINGS: Lung volumes remain very low. Left upper extremity PICC line remains in place. Interstitia l and patchy alveolar opacities throughout both lung ordonez have minimally improved since March 14 . No progressive process. Cardiomediastinal silhouette is stable. Heart size is normal. No measurable pleural effusion and no pneumothorax. No acute bony abnormality seen. No acute aortic findings suspe cted. IMPRESSION: Bilateral interstitial and alveolar opacification still present, fractionally improved f rom March 14.
[2018-03-15] MEDS: INSULIN -REGULAR HUMAN 50 UNIT/0.5 ML ML SQ SCH ×4 (07:30→22:16)
[2018-03-15] MEDS ORDERED: MAGIC MOUTHWASH 180 ML BTL PO PRN (08:34)
[2018-03-15] MEDS: FLUOXETINE 20 MG CAP PO SCH (08:37)
[2018-03-15] MEDS: MIDODRINE HCL 5 MG TABLET PO SCH (08:37)
[2018-03-15] MEDS: Meropenem 500 MG in NA CHLORIDE 0.9% 100 ML IV SCH ×2 (08:39→22:13)
[2018-03-15] MEDS: GLUCERNA SHAKE 237 ML CAN PO SCH ×2 (08:41→22:12)
[2018-03-15] MEDS: INSULIN GLARGINE 100 UNITS/ML SQ SCH (08:44)
[2018-03-15] MEDS: PROMOD 30 ML DOSE PO SCH ×2 (08:45→21:00)
[2018-03-15] MEDS: FUROSEMIDE IV SCH (09:46)
[2018-03-15] MEDS: NA CHLORIDE 0.9% IV SCH (09:46)
[2018-03-15] MEDS: SUCRALFATE 1 GM TABLET PO SCH ×2 (11:43→16:50)
[2018-03-15] MEDS: FLUCONAZOLE 100mg IVPB 100 MG/50 ML BAG IV SCH (13:06)
[2018-03-15] MEDS: MAGIC MOUTHWASH 180 ML BTL PO PRN (13:07)
--- NOTE | 2018-03-15 15:07 | P.PN ---
Subjective Date of Service: 03/15/18 Primary Care Provider: Sunni Huff NP Chief Complaint: Respiratory does Subjective: Improving, Doing well Physical Examination - Vital Signs Temperature: 97.2 F Blood Pressure: 91/55 Pulse: 81 Respirations: 22 Pulse Ox (%): 93 - Physical Exam General: Alert, In no apparent distress, Oriented x3, Cooperative HEENT: Atraumatic Neck: Supple Respiratory: Clear to auscultation bilaterally, Normal air movement Cardiovascular: Normal pulses, Regular rate/rhythm Gastrointestinal: Normal bowel sounds, Soft and benign, Non-distended, No masses , No rebound, No guarding Musculoskeletal: No erythema, No tenderness, No warmth Integumentary: Tenderness/swelling (to the lower ext. ) Neurological: Normal speech, Normal strength at 5/5 x4 extr, Normal tone, Normal affect - Studies Medications List Reviewed: Yes Assessment & Plan Discharge Plan: Other (SNF) Plan to discharge in: Greater than 2 days Physician Review Additional Text: Impression: Dyspnea secondary to pulmonary edema with possible underlying pneumonia Ascites with noted chronic alcohol cirrhosis Acute on chronic renal failure stage IV likely related to medication Bilateral cellulitis to the lower extremity with noted moderate osteomyelitis to the base of the proximal right phalanx on the 5th toe, medial aspect of the 5th metatarsal head, and the majority of the 4th metatarsal head along with moderate osteomyelitis with underlying fracture of the left proximal phalanx of the 5th toe Recent fall with right femoral fracture status post repair postop day 9 Diabetes mellitus type 2, insulin dependent Oral candidiasis Peripheral vascular disease Depression with anxiety Diabetic neuropathy Thrombocytopenia likely related to alcoholic cirrhosis Tobacco abuse Anemia likely of chronic disease Plan: Dyspnea secondary to pulmonary edema: Patient significantly improved with diuresis. Will continue with diuresis. Case discussed with pulmonology and nephrology. Will continue to try to wean off oxygen. Patient had paracentesis 2 days ago. DVT prophylaxis discontinued due to underlying cirrhosis. Will have physical therapy continue to assess. Once improved then will need to work with social media manager to consider high-level skilled placement. Ascites with noted at chronic alcohol cirrhosis: Continue as above. Paracentesis done 2 days ago. Ascites improved. Acute on chronic renal disease stage IV: This is likely exacerbated by medication. Case discussed with nephrology. Will continue with recommendations by nephrology. Continue with diuresis. Status post fall leading to right femoral fracture status post repair postop day 9: Will have physical therapy at this time. Once the patient is able to go to the floor then will restart physical therapy. This will likely occur tomorrow Bilateral cellulitis to the lower extremity with noted moderate osteomyelitis to the base of the proximal right phalanx on the 5th toe, medial aspect of the 5th metatarsal head, and the majority of the 4th metatarsal head along with moderate osteomyelitis with underlying fracture of the left proximal phalanx of the 5th toe: Case discussed with surgery. Blister to left toe removed. No need for further surgical intervention. Will continue with antibiotic therapy. Patient will need to continue with IV antibiotic therapy for a total of 6 weeks. Patient currently on meropenem and vancomycin. Oral candidiasis: Will continue with Diflucan. Will add Carafate and Magic Mouthwash. Diabetes mellitus type 2, insulin dependent: Will continue with insulin. Will monitor and adjust appropriately. Patient on sliding scale. Peripheral vascular disease: Surgery reports history of peripheral vascular disease. Tobacco cessation addressed in detail. Depression with anxiety: Will continue with medication. Will monitor and adjust appropriately. Diabetic neuropathy: Will continue to provide medication for pain. Patient responding well to Neurontin. Continue with Neurontin Thrombocytopenia likely related to alcoholic cirrhosis: Thrombocytopenia improved. Lovenox discontinued due to alcoholic cirrhosis. Paracentesis planned for today. Tobacco abuse: Tobacco cessation education provided. Anemia likely of chronic disease: Will continue to monitor closely. Time Spent Managing Pts Care (In Minutes): 55
--- NOTE | 2018-03-15 19:19 | P.PN ---
Subjective Date of Service: 03/15/18 Primary Care Provider: Sunni Huff NP Chief Complaint: Respiratory does Subjective: No new changes Pt with Hx of cirrohsis , pt admitted for pancreatitis , hospital; course complicated by hip fracture Pt was started on Abx and devloped CHRISTINE Zosyn changed to merrem no Nasid or contrast urine for eos -ve S/P 3 liter paracentesis on 03/14 Cr now plateauing Physical Examination - Vital Signs Temperature: 97.5 F Blood Pressure: 106/66 Pulse: 76 Respirations: 18 Pulse Ox (%): 94 - Physical Exam General: Oriented x3 HEENT: Atraumatic Neck: Without JVD or thyroid abnormality Respiratory: Clear to auscultation bilaterally, Normal air movement Cardiovascular: Regular rate/rhythm, Normal S1 S2, No rubs, No murmurs, Edema - Studies Medications List Reviewed: Yes Assessment And Plan - Current Problems (Diagnosis) (1) CHRISTINE (acute kidney injury) Current Visit: Yes Status: Acute (2) Bilateral lower leg cellulitis Onset Date: 02/25/18 Current Visit: Yes Status: Acute (3) Diabetic neuropathy Onset Date: 02/25/18 Current Visit: Yes Status: Chronic - Plan Acute kidney injury AIN vs ATN Cr plateauing now Cont to monitor Will cont current dose of lasix Monitor vanco level Cirrhosis Cont lasix for now S/P paracentesis Cont midodrine Anemia BHAVIN and liver cirrhosis IV Iron Osteomyelitis, status post debridement. Dose adjusted. Follow up vancomycin trough. Diabetes as per primary
[2018-03-15] MEDS: AMITRIPTYLINE 25 MG TAB PO SCH (22:11)
[2018-03-15] MEDS: SUCRALFATE 1GM/10ML UCUP FT SCH (22:12)
[2018-03-16] MEDS: TRAMADOL HCL 50 MG TAB PO PRN ×2 (06:16→15:26)
[2018-03-16] MEDS: PANTOPRAZOLE 40MG TABLET PO SCH (06:16)
[2018-03-16] MEDS: INSULIN -REGULAR HUMAN 50 UNIT/0.5 ML ML SQ SCH ×4 (07:30→21:55)
[2018-03-16] MEDS: MAGIC MOUTHWASH 180 ML BTL PO PRN ×2 (08:10→11:41)
[2018-03-16] MEDS: SUCRALFATE 1GM/10ML UCUP FT SCH ×4 (08:11→21:00)
[2018-03-16] MEDS: PROMOD 30 ML DOSE PO SCH ×3 (09:00→21:56)
[2018-03-16] MEDS: INSULIN GLARGINE 100 UNITS/ML SQ SCH (09:47)
[2018-03-16] MEDS: FLUOXETINE 20 MG CAP PO SCH (09:48)
[2018-03-16] MEDS: FUROSEMIDE IV SCH (09:48)
[2018-03-16] MEDS: NA CHLORIDE 0.9% IV SCH (09:48)
[2018-03-16] MEDS: Meropenem 500 MG in NA CHLORIDE 0.9% 100 ML IV SCH ×2 (09:48→21:54)
[2018-03-16] MEDS: MIDODRINE HCL 5 MG TABLET PO SCH (09:48)
[2018-03-16] MEDS: GLUCERNA SHAKE 237 ML CAN PO SCH ×2 (09:49→21:56)
[2018-03-16 10:02] LABS: Albumin 1.7 g/dL (3.4-5.0); Phosphorus 3.2 mg/dL (2.5-4.9); Potassium 4.5 mmol/L (3.5-5.1)
--- NOTE | 2018-03-16 11:13 | P.PN ---
Subjective Date of Service: 03/16/18 Primary Care Provider: Sunni Huff NP Chief Complaint: Respiratory does Subjective: Improving Physical Examination - Vital Signs Temperature: 97.5 F Blood Pressure: 121/59 Pulse: 75 Respirations: 16 Pulse Ox (%): 92 - Physical Exam General: Alert, In no apparent distress, Oriented x3, Cooperative HEENT: Atraumatic Neck: Supple Respiratory: Clear to auscultation bilaterally, Normal air movement Cardiovascular: Normal pulses, Regular rate/rhythm Gastrointestinal: Normal bowel sounds, Soft and benign, Non-distended Musculoskeletal: No erythema, No tenderness, No warmth Integumentary: No tenderness/swelling, No erythema, No warmth, No cyanosis Neurological: Normal speech, Normal strength at 5/5 x4 extr, Normal tone, Normal affect Lymphatics: No axilla or inguinal lymphadenopathy - Studies Medications List Reviewed: Yes Assessment & Plan Discharge Plan: Other ([facility] facility) Plan to discharge in: Greater than 2 days Physician Review Additional Text: Impression: Dyspnea secondary to pulmonary edema with possible underlying pneumonia Ascites with noted chronic alcohol cirrhosis Acute on chronic renal failure stage IV likely related to medication Bilateral cellulitis to the lower extremity with noted moderate osteomyelitis to the base of the proximal right phalanx on the 5th toe, medial aspect of the 5th metatarsal head, and the majority of the 4th metatarsal head along with moderate osteomyelitis with underlying fracture of the left proximal phalanx of the 5th toe Recent fall with right femoral fracture status post repair postop day 10 Diabetes mellitus type 2, insulin dependent Oral candidiasis Peripheral vascular disease Depression with anxiety Diabetic neuropathy Thrombocytopenia likely related to alcoholic cirrhosis Tobacco abuse Anemia likely of chronic disease Plan: Dyspnea secondary to pulmonary edema: Patient continues to improve. Continue with diuresis. Will change IV Lasix to oral. Continue to wean off oxygen. Will have physical therapy assess ambulation. Patient had paracentesis 3 days ago. Doing quite well. DVT prophylaxis discontinue due to cirrhosis. Patient being evaluated for high-level skilled facility placement likely to occur on Sunday or Sunday. Ascites with noted at chronic alcohol cirrhosis: Continue as above. Paracentesis done 3 days ago. 3 L removed. Ascites improved. Acute on chronic renal disease stage IV: This is likely exacerbated by medication. Case discussed with nephrology. Will continue with recommendations by nephrology. Continue with diuresis. Patient now on oral Lasix Status post fall leading to right femoral fracture status post repair postop day 10: Will have physical therapy continue to ambulate. Await acceptance to placement facility to continue rehab Bilateral cellulitis to the lower extremity with noted moderate osteomyelitis to the base of the proximal right phalanx on the 5th toe, medial aspect of the 5th metatarsal head, and the majority of the 4th metatarsal head along with moderate osteomyelitis with underlying fracture of the left proximal phalanx of the 5th toe: Case discussed with surgery. No need for further surgical intervention. Continue with current wound care. Will continue with antibiotic therapy. Patient will need to continue with IV antibiotic therapy for a total of 6 weeks. Patient currently on meropenem and vancomycin. Oral candidiasis: Will continue with Diflucan. Patient also on the Carafate and Magic Mouthwash. Will monitor this closely Diabetes mellitus type 2, insulin dependent: Will continue with insulin. Will monitor and adjust appropriately. Patient on sliding scale. Peripheral vascular disease: Surgery reports history of peripheral vascular disease. Tobacco cessation addressed in detail. Depression with anxiety: Will continue with medication. Will monitor and adjust appropriately. Diabetic neuropathy: Will continue to provide medication for pain. Patient responding well to Neurontin. Continue with Neurontin Thrombocytopenia likely related to alcoholic cirrhosis: Thrombocytopenia improved. Lovenox discontinued due to alcoholic cirrhosis. Patient status post paracentesis Tobacco abuse: Tobacco cessation education provided. Anemia likely of chronic disease: Will continue to monitor closely. Time Spent Managing Pts Care (In Minutes): 55
[2018-03-16] MEDS: SOD FERRIC GLUC COMPLX/SUCROSE 250 MG in NA CHLORIDE 0.9% 250 ML IV SCH (11:39)
[2018-03-16] MEDS: FLUCONAZOLE 100mg IVPB 100 MG/50 ML BAG IV SCH (13:31)
[2018-03-16] MEDS: VANCOMYCIN/NS 1 gm 1 GM/250 ML BAG IVPB SCH (21:52)
[2018-03-16] MEDS: AMITRIPTYLINE 25 MG TAB PO SCH (21:55)
--- NOTE | 2018-03-17 05:56 | PN ---
Date of Progress Note: 03/16/2018 Chief Complaint: Abnormal renal function test. Subjective: The patient has history of liver cirrhosis. She was admitted for pancreatitis. She was started on antibiotics for possible sepsis and was found to have acute kidney injury. The patient did not have nonsteroidal antiinflammatory medication. She had paracentesis and serum creatinine plateauing. Blood pressure remains in stable range. Review of Systems: The patient is oriented, although she cannot provide review of systems. She is somewhat lethargic. Physical Examination: Lungs: Clear to auscultation bilaterally. Heart: S1, S2. Abdomen: Soft, benign. Extremities: Slight edema. Laboratory Data: Creatinine level is 1.7, improved from 2.6. Sodium 138, potassium 4.5, chloride 107, CO2 28, calcium 7.8. Impression And Plan: 1. Acute kidney injury, moderately severe, nonoliguric associated with nonoliguric acute tubular necrosis and hepatorenal syndrome. Vancomycin level will be evaluated and dose will be adjusted. 2. Acute kidney injury. The patient has likely acute tubular necrosis, questionable allergic interstitial nephritis. Renal function has improved somewhat and creatinine level is plateauing. Monitor renal function and urine output. 3. Liver cirrhosis. Continue Lasix as needed for volume control status post paracentesis. Continue midodrine. 4. Anemia. IV iron will be adjusted according to iron studies level. 5. Osteomyelitis status post debridement. The patient had vancomycin adjusted according to trough level. FABRICE/URBANO Voice ID: [id number] Report ID: [id number]
[2018-03-17] MEDS: TRAMADOL HCL 50 MG TAB PO PRN (06:10)
[2018-03-17] MEDS: PANTOPRAZOLE 40MG TABLET PO SCH (06:56)
[2018-03-17] MEDS: INSULIN -REGULAR HUMAN 50 UNIT/0.5 ML ML SQ SCH ×4 (07:30→21:15)
[2018-03-17] MEDS: SUCRALFATE 1GM/10ML UCUP FT SCH ×4 (08:13→21:00)
[2018-03-17 08:30] LABS: Absolute Lymphocytes (CBC) 0.8 K/uL (0.7-4.9); Absolute Monocytes 0.8 K/uL (0.1-1.3); Basophils % 0.7 % (0-1.3); Eosinophils % 5.3 % (0-4.4); Hematocrit 28.6 % (36.0-45.0); MPV 7.9 fL (7.6-11.3); Monocytes % 10.3 % (3.3-12.3); RBC Red Blood Cell Count 3.28 M/uL (3.86-4.86)
[2018-03-17 08:39] LABS: Albumin 1.8 g/dL (3.4-5.0); Magnesium 2.2 mg/dL (1.8-2.4); Phosphorus 3.3 mg/dL (2.5-4.9); Potassium 4.5 mmol/L (3.5-5.1)
[2018-03-17] MEDS: PROMOD 30 ML DOSE PO SCH ×2 (09:00→21:00)
[2018-03-17] MEDS: Meropenem 500 MG in NA CHLORIDE 0.9% 100 ML IV SCH ×2 (09:02→21:00)
[2018-03-17] MEDS: INSULIN GLARGINE 100 UNITS/ML SQ SCH (09:03)
[2018-03-17] MEDS: MIDODRINE HCL 5 MG TABLET PO SCH (09:05)
[2018-03-17] MEDS: FUROSEMIDE 40 MG TABLET PO SCH (09:05)
[2018-03-17] MEDS: FLUOXETINE 20 MG CAP PO SCH (09:05)
[2018-03-17] MEDS: GLUCERNA SHAKE 237 ML CAN PO SCH ×2 (09:06→21:00)
--- NOTE | 2018-03-17 10:02 | P.PN ---
Subjective Date of Service: 03/17/18 Primary Care Provider: Sunni Huff NP Chief Complaint: Respiratory does Subjective: Improving Physical Examination - Vital Signs Temperature: 97.9 F Blood Pressure: 127/72 Pulse: 72 Respirations: 18 Pulse Ox (%): 96 - Physical Exam General: Alert, In no apparent distress, Oriented x3, Cooperative HEENT: Atraumatic Neck: Supple Respiratory: Clear to auscultation bilaterally, Normal air movement Cardiovascular: Normal pulses, Regular rate/rhythm Gastrointestinal: Normal bowel sounds, Soft and benign, Non-distended, No tenderness, No masses, No rebound, No guarding Neurological: Normal speech, Normal strength at 5/5 x4 extr, Normal tone - Studies Medications List Reviewed: Yes Assessment & Plan Discharge Plan: Other (longterm facility) Plan to discharge in: 24 Hours Physician Review Additional Text: Impression: Dyspnea secondary to pulmonary edema with possible underlying pneumonia Ascites with noted chronic alcohol cirrhosis Acute on chronic renal failure stage IV likely related to medication Bilateral cellulitis to the lower extremity with noted moderate osteomyelitis to the base of the proximal right phalanx on the 5th toe, medial aspect of the 5th metatarsal head, and the majority of the 4th metatarsal head along with moderate osteomyelitis with underlying fracture of the left proximal phalanx of the 5th toe, day 21/42 days Recent fall with right femoral fracture status post repair postop day 11 Diabetes mellitus type 2, insulin dependent Oral candidiasis Peripheral vascular disease Depression with anxiety Diabetic neuropathy Thrombocytopenia likely related to alcoholic cirrhosis Tobacco abuse Anemia likely of chronic disease Plan: Dyspnea secondary to pulmonary edema: Patient continues to improve. Continue with diuresis. Patient on oral Lasix. Will continue to ambulate patient. Patient off oxygen at this time. Patient had paracentesis 4 days ago. Doing quite well. DVT prophylaxis discontinue due to cirrhosis. Awaiting placement to skilled facility, likely to occur tomorrow. Ascites with noted at chronic alcohol cirrhosis: Continue as above. Paracentesis done 4 days ago. 3 L removed. Ascites improved. Acute on chronic renal disease stage IV: This is likely exacerbated by medication. Case discussed with nephrology. Will continue with recommendations by nephrology. Continue with diuresis. Patient now on oral Lasix Status post fall leading to right femoral fracture status post repair postop day 11: Will have physical therapy continue to ambulate. Will discontinue Bailon catheter once the patient is able to ambulate safely to bedside commode. Bilateral cellulitis to the lower extremity with noted moderate osteomyelitis to the base of the proximal right phalanx on the 5th toe, medial aspect of the 5th metatarsal head, and the majority of the 4th metatarsal head along with moderate osteomyelitis with underlying fracture of the left proximal phalanx of the 5th toe, day 21 out of 42 days: Case discussed with surgery. No need for further surgical intervention. Continue with current wound care. Will continue with antibiotic therapy. Patient will need to continue with IV antibiotic therapy for a total of 6 weeks. Patient currently on meropenem and vancomycin. Oral candidiasis: Will continue with Diflucan. Patient also on the Carafate and Magic Mouthwash. Will monitor this closely Diabetes mellitus type 2, insulin dependent: Will continue with insulin. Will monitor and adjust appropriately. Patient on sliding scale. Peripheral vascular disease: Surgery reports history of peripheral vascular disease. Tobacco cessation addressed in detail. Depression with anxiety: Will continue with medication. Will monitor and adjust appropriately. Diabetic neuropathy: Will continue to provide medication for pain. Patient responding well to Neurontin. Continue with Neurontin Thrombocytopenia likely related to alcoholic cirrhosis: Thrombocytopenia improved. Lovenox discontinued due to alcoholic cirrhosis. Patient status post paracentesis Tobacco abuse: Tobacco cessation education provided. Anemia likely of chronic disease: Will continue to monitor closely. Time Spent Managing Pts Care (In Minutes): 55
[2018-03-17] MEDS: FLUCONAZOLE 100mg IVPB 100 MG/50 ML BAG IV SCH (10:18)
[2018-03-17] MEDS ORDERED: WATER FOR INJ,STERILE 10 ML IV ONE (11:00)
[2018-03-17] MEDS ORDERED: ALTEPLASE 2 MG/VIAL IV ONE (11:00)
[2018-03-17] MEDS: AMITRIPTYLINE 25 MG TAB PO SCH (21:17)
--- NOTE | 2018-03-18 00:05 | PN ---
Date of Progress Note: 03/17/2018 Chief Complaint: Acute kidney injury. Subjective: The patient was found to have abnormal renal function test. The patient has history of liver cirrhosis. She is admitted for acute pancreatitis. She is feeling better today. The patient was started on antibiotics for osteomyelitis. She underwent debridement. The patient is on vancomyc in. Review of Systems: Denies fever, chills. Physical Examination: Lungs: Clear to auscultation bilaterally. Heart: S1, S2. Abdomen: Soft, benign. Extremities: Minimal edema. Laboratory Data: Showed hemoglobin 9.6, WBC 8.2, platelet count 184,000. Chemistry showed sodium 14 0, potassium 4.5, chloride 108, CO2 27, BUN 27, creatinine 1.8, glucose 80, calcium 8.0, phosphorus 3 .3, magnesium 2.2. Impression And Plan: 1.Acute kidney injury, nonoliguric. Renal function is stabilizing . The patient will con tinue treatment with antibiotics. The patient has osteomyelitis, status post debridement. Continue wound care. 2.Acute kidney injury, remains nonoliguric. 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 The patient may require IV fluids according to p.o. intake. 3.Electrolytes are stable. Monitor renal panel daily. EB/MODL Voice ID: [id number] Report ID: [id number]
[2018-03-18] MEDS: TRAMADOL HCL 50 MG TAB PO PRN ×2 (05:03→12:48)
[2018-03-18 05:36] LABS: Magnesium 2.4 mg/dL (1.8-2.4); Phosphorus 3.5 mg/dL (2.5-4.9); Potassium 4.4 mmol/L (3.5-5.1)
[2018-03-18 05:47] LABS: Absolute Lymphocytes (CBC) 0.8 K/uL (0.7-4.9); Absolute Monocytes 0.8 K/uL (0.1-1.3); Absolute Neutrophil 6.4 K/uL (1.8-8.0); Basophils % 0.6 % (0-1.3); Eosinophils % 5.4 % (0-4.4); Hematocrit 27.3 % (36.0-45.0); Lymphocytes % 9.8 % (15.3-44.8); MPV 7.7 fL (7.6-11.3); Monocytes % 8.8 % (3.3-12.3); RBC Red Blood Cell Count 3.11 M/uL (3.86-4.86)
[2018-03-18] MEDS: PANTOPRAZOLE 40MG TABLET PO SCH (06:43)
[2018-03-18] MEDS: INSULIN -REGULAR HUMAN 50 UNIT/0.5 ML ML SQ SCH ×4 (07:30→21:00)
[2018-03-18] MEDS: PROMOD 30 ML DOSE PO SCH ×2 (09:00→20:21)
[2018-03-18] MEDS: FUROSEMIDE 40 MG TABLET PO SCH (09:54)
[2018-03-18] MEDS: FLUOXETINE 20 MG CAP PO SCH (09:54)
[2018-03-18] MEDS: MIDODRINE HCL 5 MG TABLET PO SCH (09:54)
[2018-03-18] MEDS: Meropenem 500 MG in NA CHLORIDE 0.9% 100 ML IV SCH ×2 (09:56→20:20)
[2018-03-18] MEDS: SUCRALFATE 1GM/10ML UCUP FT SCH ×4 (09:57→20:20)
[2018-03-18] MEDS: GLUCERNA SHAKE 237 ML CAN PO SCH ×2 (09:58→20:21)
[2018-03-18] MEDS: INSULIN GLARGINE 100 UNITS/ML SQ SCH (10:09)
--- NOTE | 2018-03-18 12:12 | P.PN ---
Subjective Date of Service: 03/18/18 Primary Care Provider: Sunni Huff NP Chief Complaint: Respiratory does Subjective: Improving, Doing well Physical Examination - Vital Signs Temperature: 98 F Blood Pressure: 133/74 Pulse: 75 Respirations: 18 Pulse Ox (%): 95 - Physical Exam General: Alert, In no apparent distress, Oriented x3, Cooperative HEENT: Atraumatic Neck: Supple Respiratory: Clear to auscultation bilaterally, Normal air movement Cardiovascular: Normal pulses, Regular rate/rhythm Gastrointestinal: Normal bowel sounds, No tenderness, No masses, No rebound, No guarding Musculoskeletal: No erythema, No tenderness, No warmth Integumentary: No tenderness/swelling, No erythema, No warmth, No cyanosis Neurological: Normal speech, Normal strength at 5/5 x4 extr, Normal tone, Normal affect - Studies Medications List Reviewed: Yes Assessment & Plan Discharge Plan: Home Plan to discharge in: Greater than 2 days Physician Review Additional Text: Impression: Dyspnea secondary to pulmonary edema with possible underlying pneumonia Ascites with noted chronic alcohol cirrhosis with recent therapeutic paracentesis Acute on chronic renal failure stage IV likely related to medication Bilateral cellulitis to the lower extremity with noted moderate osteomyelitis to the base of the proximal right phalanx on the 5th toe, medial aspect of the 5th metatarsal head, and the majority of the 4th metatarsal head along with moderate osteomyelitis with underlying fracture of the left proximal phalanx of the 5th toe, day 22/42 days Recent fall with right femoral fracture status post repair postop day 12 Diabetes mellitus type 2, insulin dependent Oral candidiasis Peripheral vascular disease Depression with anxiety Diabetic neuropathy Thrombocytopenia likely related to alcoholic cirrhosis Tobacco abuse Anemia likely of chronic disease Plan: Dyspnea secondary to pulmonary edema: Patient continues to improve. Continue with diuresis. Patient on oral Lasix. Will continue to ambulate patient. Patient off oxygen at this time. Patient had paracentesis 5 days ago. Spoke with psychotherapist social worker today. Patient not qualify to go to a skilled facility. Only option is probably inpatient rehab or home. Will check to see what her options will be in the near future. Will discuss with case management. Patient will require long-term IV antibiotic therapy for osteomyelitis. Patient will need continued physical therapy post hip repair. Hopefully patient will be accepted to inpatient rehab. Otherwise home with home health. Patient understands this in detail. I will turn the service over to Dr. Morris tomorrow. I will go over the plan of care with her. Ascites with noted at chronic alcohol cirrhosis with recent therapeutic paracentesis: Continue as above. Paracentesis done 5 days ago. 3 L removed. Ascites improved. Acute on chronic renal disease stage IV: This is likely exacerbated by medication. Case discussed with nephrology. Will continue with recommendations by nephrology. Continue with diuresis. Patient now on oral Lasix Status post fall leading to right femoral fracture status post repair postop day 11: Will have physical therapy continue to ambulate. Will discontinue Bailon catheter once the patient is able to ambulate safely to bedside commode. Bilateral cellulitis to the lower extremity with noted moderate osteomyelitis to the base of the proximal right phalanx on the 5th toe, medial aspect of the 5th metatarsal head, and the majority of the 4th metatarsal head along with moderate osteomyelitis with underlying fracture of the left proximal phalanx of the 5th toe, day 22 out of 42 days: Case discussed with surgery. No need for further surgical intervention. Wound appears very well controlled. Continue with current wound care. Will continue with antibiotic therapy. Patient will need to continue with IV antibiotic therapy for a total of 6 weeks. Patient currently on meropenem and vancomycin. Continue to ambulate patient until she safe to ambulate appropriately. Hopefully she will get qualify to go to inpatient rehab. Otherwise home with home health. Oral candidiasis: Will continue with Diflucan. Patient also on the Carafate and Magic Mouthwash. Will monitor this closely Diabetes mellitus type 2, insulin dependent: Will continue with insulin. Will monitor and adjust appropriately. Patient on sliding scale. Peripheral vascular disease: Surgery reports history of peripheral vascular disease. Tobacco cessation addressed in detail. Depression with anxiety: Will continue with medication. Will monitor and adjust appropriately. Diabetic neuropathy: Will continue to provide medication for pain. Patient responding well to Neurontin. Continue with Neurontin Thrombocytopenia likely related to alcoholic cirrhosis: Thrombocytopenia improved. Lovenox discontinued due to alcoholic cirrhosis. Patient status post paracentesis Tobacco abuse: Tobacco cessation education provided. Anemia likely of chronic disease: Will continue to monitor closely. Time Spent Managing Pts Care (In Minutes): 55
[2018-03-18] MEDS: FLUCONAZOLE 100mg IVPB 100 MG/50 ML BAG IV SCH (12:50)
[2018-03-18] MEDS: AMITRIPTYLINE 25 MG TAB PO SCH (20:20)
[2018-03-18] MEDS: MORPHINE 2 MG/ML SYR IV PRN (21:26)
[2018-03-18] MEDS: VANCOMYCIN/NS 1 gm 1 GM/250 ML BAG IVPB SCH (22:08)
[2018-03-19] MEDS: MORPHINE 2 MG/ML SYR IV PRN ×4 (01:04→20:26)
--- NOTE | 2018-03-19 03:31 | PN ---
Date of Progress Note: 03/18/2018 Chief Complaint: Acute kidney injury. Subjective: The patient is feeling better today. Denies PND or orthopnea. Physical Examination: Lungs: Clear to auscultation bilaterally. Heart: S1, S2. Abdomen: Soft, benign. Extremities: Slight edema. Laboratory Data: Creatinine 1.8, BUN 27, potassium 4.5. Impression And Plan: 1.Acute kidney injury. Renal function is stabilizing, plateauing. The patient will continue antibi otics. Monitor electrolytes. Check renal panel. Acute kidney injury remains nonoliguric. There is some improvement of renal functions. The patient developed acute kidney injury but there is questio nable allergic interstitial nephritis. Likely, the patient has prerenal azotemia with nonoliguric ac shanice tubular necrosis. Monitor electrolytes, avoid nonsteroidal anti-inflammatory medication. 2.Osteomyelitis, status post debridements. Continue wound care. EB/MODL Voice ID: [id number] Report ID: [id number]
[2018-03-19] MEDS: PANTOPRAZOLE 40MG TABLET PO SCH (05:03)
[2018-03-19 05:54] LABS: Magnesium 2.3 mg/dL (1.8-2.4); Potassium 4.5 mmol/L (3.5-5.1)
[2018-03-19 06:07] LABS: Absolute Lymphocytes (CBC) 0.9 K/uL (0.7-4.9); Absolute Monocytes 0.8 K/uL (0.1-1.3); Absolute Neutrophil 5.6 K/uL (1.8-8.0); Basophils % 0.6 % (0-1.3); Hematocrit 26.5 % (36.0-45.0); Lymphocytes % 11.3 % (15.3-44.8); Monocytes % 10.2 % (3.3-12.3); RBC Red Blood Cell Count 3.02 M/uL (3.86-4.86)
[2018-03-19] MEDS: INSULIN -REGULAR HUMAN 50 UNIT/0.5 ML ML SQ SCH ×4 (07:30→21:00)
[2018-03-19] MEDS: FUROSEMIDE 40 MG TABLET PO SCH (08:19)
[2018-03-19] MEDS: MIDODRINE HCL 5 MG TABLET PO SCH (08:19)
[2018-03-19] MEDS: FLUOXETINE 20 MG CAP PO SCH (08:20)
[2018-03-19] MEDS: SUCRALFATE 1GM/10ML UCUP FT SCH ×4 (08:20→20:27)
[2018-03-19] MEDS: Meropenem 500 MG in NA CHLORIDE 0.9% 100 ML IV SCH ×2 (08:21→20:28)
[2018-03-19] MEDS: INSULIN GLARGINE 100 UNITS/ML SQ SCH (08:21)
[2018-03-19] MEDS: GLUCERNA SHAKE 237 ML CAN PO SCH ×2 (08:22→20:28)
[2018-03-19] MEDS: PROMOD 30 ML DOSE PO SCH ×2 (08:23→20:28)
[2018-03-19] MEDS: TRAMADOL HCL 50 MG TAB PO PRN (11:19)
[2018-03-19] MEDS: SOD FERRIC GLUC COMPLX/SUCROSE 250 MG in NA CHLORIDE 0.9% 250 ML IV SCH (11:21)
[2018-03-19] MEDS: FLUCONAZOLE 100mg IVPB 100 MG/50 ML BAG IV SCH (12:05)
--- NOTE | 2018-03-19 15:09 | P.PN ---
Subjective Date of Service: 03/19/18 Primary Care Provider: Sunni Huff NP Chief Complaint: Respiratory does Subjective: No new changes Pt with Hx of cirrohsis , pt admitted for pancreatitis , hospital; course complicated by hip fracture Pt was started on Abx and devloped CHRISTINE Zosyn changed to merrem no Nasid or contrast urine for eos -ve S/P 3 liter paracentesis on 03/14 Cr improving to 1.7 Le edema worsen , will increase lasix to bid increased abd girth , consider Abd us and Rpt paracentecis Physical Examination - Vital Signs Temperature: 97.5 F Blood Pressure: 112/56 Pulse: 79 Respirations: 18 Pulse Ox (%): 98 - Physical Exam General: Alert, In no apparent distress, Oriented x3 HEENT: Atraumatic Neck: Supple, Without JVD or thyroid abnormality Respiratory: Clear to auscultation bilaterally, Normal air movement Cardiovascular: Edema Gastrointestinal: Ascites - Studies Medications List Reviewed: Yes Assessment And Plan - Current Problems (Diagnosis) (1) CHRISTINE (acute kidney injury) Current Visit: Yes Status: Acute (2) Bilateral lower leg cellulitis Onset Date: 02/25/18 Current Visit: Yes Status: Acute (3) Diabetic neuropathy Onset Date: 02/25/18 Current Visit: Yes Status: Chronic - Plan Acute kidney injury AIN vs ATN Cr improving now Cont to monitor Will increase lasix dose Monitor vanco level Cirrhosis abd distension now increase lasix, Rpt abd US Cont midodrine Anemia BHAVIN and liver cirrhosis IV Iron Osteomyelitis, status post debridement. Dose adjusted. Follow up vancomycin trough. Diabetes as per primary
--- NOTE | 2018-03-19 17:13 | P.PN ---
Subjective Date of Service: 03/19/18 Primary Care Provider: Sunni Huff NP Chief Complaint: Respiratory does Pt seen and examined at bedside. Chart Reviewed. Case DW with Gen Surgery. Doing well overall no complaints to offer at this time Review of Systems 10-point ROS is otherwise unremarkable Physical Examination - Vital Signs Temperature: 97.5 F Blood Pressure: 112/56 Pulse: 79 Respirations: 18 Pulse Ox (%): 98 - Physical Exam General: Alert, In no apparent distress HEENT: Atraumatic, PERRLA, EOMI Neck: Supple, JVD not distended Respiratory: Clear to auscultation bilaterally, Normal air movement Cardiovascular: Regular rate/rhythm, Normal S1 S2 Gastrointestinal: Normal bowel sounds Musculoskeletal: Erythema, Tenderness, Warmth Integumentary: No rashes Neurological: Normal speech, Normal tone, Normal affect Lymphatics: No axilla or inguinal lymphadenopathy - Studies Medications List Reviewed: Yes Assessment And Plan - Current Problems (Diagnosis) (1) Shortness of breath Current Visit: Yes Status: Acute Plan: Dyspnea secondary to pulmonary edema -S/p Paracentensis 6 days ago -PO lasix at this time -Currently on RA sat well -Will continue to Monitor (2) CHRISTINE (acute kidney injury) Current Visit: Yes Status: Acute Plan: Acute on chronic renal disease stage IV -This is likely exacerbated by medication. -Case discussed with nephrology. Will continue with recommendations by nephrology. -Continue with diuresis. Patient now on oral Lasix (3) Bilateral lower leg cellulitis Onset Date: 02/25/18 Current Visit: Yes Status: Acute Plan: Bilateral cellulitis to the lower extremity with noted moderate osteomyelitis to the base of the proximal right phalanx on the 5th toe, medial aspect of the 5th metatarsal head, and the majority of the 4th metatarsal head along with moderate osteomyelitis with underlying fracture of the left proximal phalanx of the 5th toe -continue IV Vanc and meropenem. Day -Gen Surgery consulted. Appreciate Reccs -Wound care Consulted. Appreciated reccs -ID consulted. Appreciated reccs (4) Osteomyelitis Current Visit: Yes Status: Acute Plan: see # 1 Qualifiers: Osteomyelitis type: subacute Osteomyelitis location: foot Laterality: unspecified laterality Qualified Code(s): M86.279 - Subacute osteomyelitis, unspecified ankle and foot (5) Fall Current Visit: Yes Status: Acute Plan: S/p fall in the hospital -Fall precaution given -Currently NWB BL LE -No Lovenox due to Thrombocytopenia -Continue to monitor Qualifiers: Encounter type: initial encounter Qualified Code(s): W19.XXXA - Unspecified fall, initial encounter (6) Right femoral fracture Current Visit: Yes Status: Acute Plan: Right Femoral Fracture S.p Fall -Orthopedics consulted. Appreciate Reccs -status post open reduction and fixation POD # 12 -doing well and Pain mgmt with Tramadol -No Lovenox due to Thrombocytopenia 2.2 to Alcoholism -Ambulate with PT Qualifiers: Encounter type: initial encounter Femur location: intertrochanteric Fracture type: closed Fracture alignment: nondisplaced Qualified Code(s): S72.144A - Nondisplaced intertrochanteric fracture of right femur, initial encounter for closed fracture (7) Thrombocytopenia Onset Date: 02/25/18 Current Visit: No Status: Acute Plan: Hold lovenox. Most likley 2.2 to chronic Alcohol abuse -currently platelets is improving (8) Diabetes mellitus, type II Onset Date: 02/04/18 Current Visit: No Status: Chronic Qualifiers: Diabetes mellitus assisted insulin use: without rn long term care use Diabetes mellitus complication status: with circulatory complication Diabetes mellitus complication detail: with peripheral angiopathy with gangrene Qualified Code(s ): E11.52 - Type 2 diabetes mellitus with diabetic peripheral angiopathy with gangrene (9) Cirrhosis Onset Date: 01/15/17 Current Visit: No Status: Chronic Qualifiers: Hepatic cirrhosis type: alcoholic cirrhosis Ascites presence: without ascites Qualified Code(s): K70.30 - Alcoholic cirrhosis of liver without ascites (10) History of alcohol use Current Visit: No Status: Chronic - Plan Pending clinical placement at this time. Case discussed with high school social studies teacher. Patient not qualify to go to a skilled facility. Only option is probably inpatient rehab or home. Will check to see what her options will be in the near future. Will discuss with case management further for any other resource. Patient will require long-term IV antibiotic therapy for osteomyelitis. Patient will need continued physical therapy post hip repair. Hopefully patient will be accepted to inpatient rehab. Otherwise home with home health. Patient understands this in detail. Discharge Plan: Other Plan to discharge in: Unknown - Code Status/Comfort Care Code Status Assessed: Yes Critical Care: No
[2018-03-19] MEDS: AMITRIPTYLINE 25 MG TAB PO SCH (20:27)
[2018-03-19] MEDS ORDERED: Meropenem 500 MG/100 ML BAG ONE (20:32)
[2018-03-20] MEDS: MORPHINE 2 MG/ML SYR IV PRN ×5 (02:25→19:29)
[2018-03-20] MEDS: PANTOPRAZOLE 40MG TABLET PO SCH (06:00)
[2018-03-20 06:39] LABS: Absolute Lymphocytes (CBC) 0.8 K/uL (0.7-4.9); Absolute Monocytes 0.6 K/uL (0.1-1.3); Absolute Neutrophil 5.8 K/uL (1.8-8.0); Basophils % 1.1 % (0-1.3); Eosinophils % 6.1 % (0-4.4); Hematocrit 26.7 % (36.0-45.0); Monocytes % 8.1 % (3.3-12.3); RBC Red Blood Cell Count 3.02 M/uL (3.86-4.86)
[2018-03-20 06:56] LABS: Magnesium 2.3 mg/dL (1.8-2.4); Phosphorus 4.4 mg/dL (2.5-4.9); Potassium 4.6 mmol/L (3.5-5.1)
[2018-03-20] MEDS: INSULIN -REGULAR HUMAN 50 UNIT/0.5 ML ML SQ SCH ×4 (07:30→20:23)
[2018-03-20] MEDS: SUCRALFATE 1GM/10ML UCUP FT SCH ×4 (08:05→20:23)
[2018-03-20] MEDS: FUROSEMIDE 40 MG TABLET PO SCH (08:06)
[2018-03-20] MEDS: FLUOXETINE 20 MG CAP PO SCH (08:06)
[2018-03-20] MEDS: MIDODRINE HCL 5 MG TABLET PO SCH (08:06)
[2018-03-20] MEDS: INSULIN GLARGINE 100 UNITS/ML SQ SCH (08:07)
[2018-03-20] MEDS: PROMOD 30 ML DOSE PO SCH ×2 (08:08→19:33)
[2018-03-20] MEDS: GLUCERNA SHAKE 237 ML CAN PO SCH ×2 (08:08→20:23)
[2018-03-20] MEDS: Meropenem 500 MG in NA CHLORIDE 0.9% 100 ML IV SCH ×2 (09:46→20:22)
[2018-03-20] MEDS ORDERED: FUROSEMIDE 40 MG/4 ML VIAL IV ONE (09:49)
[2018-03-20] MEDS ORDERED: FUROSEMIDE IV ONE (10:15)
[2018-03-20] MEDS ORDERED: NA CHLORIDE 0.9% IV ONE (10:15)
[2018-03-20] MEDS: FLUCONAZOLE 100mg IVPB 100 MG/50 ML BAG IV SCH (12:02)
--- NOTE | 2018-03-20 13:24 | P.PN ---
Subjective Date of Service: 03/20/18 Primary Care Provider: Sunni Huff NP Chief Complaint: Respiratory does Pt seen and examined at bedside. Chart Reviewed. Case DW with Gen Surgery. Doing well overall no complaints to offer at this time Review of Systems 10-point ROS is otherwise unremarkable Physical Examination - Vital Signs Temperature: 97.7 F Blood Pressure: 100/62 Pulse: 85 Respirations: 18 Pulse Ox (%): 94 - Physical Exam General: Alert, In no apparent distress HEENT: Atraumatic, PERRLA, EOMI Neck: Supple, JVD not distended Respiratory: Clear to auscultation bilaterally, Normal air movement Cardiovascular: Regular rate/rhythm, Normal S1 S2 Gastrointestinal: Normal bowel sounds, No tenderness Musculoskeletal: Swelling, Erythema, Tenderness, Warmth Integumentary: No rashes Neurological: Normal speech, Normal tone, Normal affect Lymphatics: No axilla or inguinal lymphadenopathy - Studies Medications List Reviewed: Yes Assessment And Plan - Current Problems (Diagnosis) (1) Shortness of breath Current Visit: Yes Status: Acute Plan: Dyspnea secondary to pulmonary edema -S/p Paracentensis 6 days ago -PO lasix at this time -Currently on RA sat well -Will continue to Monitor (2) CHRISTINE (acute kidney injury) Current Visit: Yes Status: Acute Plan: Acute on chronic renal disease stage IV -This is likely exacerbated by medication. -Case discussed with nephrology. Will continue with recommendations by nephrology. -Continue with diuresis. Patient now on oral Lasix (3) Bilateral lower leg cellulitis Onset Date: 02/25/18 Current Visit: Yes Status: Acute Plan: Bilateral cellulitis to the lower extremity with noted moderate osteomyelitis to the base of the proximal right phalanx on the 5th toe, medial aspect of the 5th metatarsal head, and the majority of the 4th metatarsal head along with moderate osteomyelitis with underlying fracture of the left proximal phalanx of the 5th toe -continue IV Vanc and meropenem. Day -Gen Surgery consulted. Appreciate Reccs -Wound care Consulted. Appreciated reccs -ID consulted. Appreciated reccs (4) Osteomyelitis Current Visit: Yes Status: Acute Plan: see # 1 Qualifiers: Osteomyelitis type: subacute Osteomyelitis location: foot Laterality: unspecified laterality Qualified Code(s): M86.279 - Subacute osteomyelitis, unspecified ankle and foot (5) Fall Current Visit: Yes Status: Acute Plan: S/p fall in the hospital -Fall precaution given -Currently NWB BL LE -No Lovenox due to Thrombocytopenia -Continue to monitor Qualifiers: Encounter type: initial encounter Qualified Code(s): W19.XXXA - Unspecified fall, initial encounter (6) Right femoral fracture Current Visit: Yes Status: Acute Plan: Right Femoral Fracture S.p Fall -Orthopedics consulted. Appreciate Reccs -status post open reduction and fixation POD # 13 -doing well and Pain mgmt with Tramadol -No Lovenox due to Thrombocytopenia 2.2 to Alcoholism -Ambulate with PT Qualifiers: Encounter type: initial encounter Femur location: intertrochanteric Fracture type: closed Fracture alignment: nondisplaced Qualified Code(s): S72.144A - Nondisplaced intertrochanteric fracture of right femur, initial encounter for closed fracture (7) Thrombocytopenia Onset Date: 02/25/18 Current Visit: No Status: Acute Plan: Hold lovenox. Most likley 2.2 to chronic Alcohol abuse -currently platelets is improving (8) Diabetes mellitus, type II Onset Date: 02/04/18 Current Visit: No Status: Chronic Qualifiers: Diabetes mellitus longterm insulin use: without longterm use Diabetes mellitus complication status: with circulatory complication Diabetes mellitus complication detail: with peripheral angiopathy with gangrene Qualified Code(s ): E11.52 - Type 2 diabetes mellitus with diabetic peripheral angiopathy with gangrene (9) Cirrhosis Onset Date: 01/15/17 Current Visit: No Status: Chronic Qualifiers: Hepatic cirrhosis type: alcoholic cirrhosis Ascites presence: without ascites Qualified Code(s): K70.30 - Alcoholic cirrhosis of liver without ascites (10) History of alcohol use Current Visit: No Status: Chronic - Plan Pending clinical placement at this time. Case discussed with administrator social welfare. Patient not qualify to go to a skilled facility. Only option is probably inpatient rehab or home. Will check to see what her options will be in the near future. Will discuss with case management further for any other resource. Patient will require long-term IV antibiotic therapy for osteomyelitis. Patient will need continued physical therapy post hip repair. Hopefully patient will be accepted to inpatient rehab. Otherwise home with home health. Patient understands this in detail. Discharge Plan: Other Plan to discharge in: 72 Hours - Code Status/Comfort Care Code Status Assessed: Yes Critical Care: No
--- NOTE | 2018-03-20 16:10 | PN ---
Date of Progress Note: 03/20/2018 Subjective: The patient is doing the same, still has anasarca. Physical Examination: Vital Signs: Blood pressure 113/59, pulse of 78. Afebrile. Chest: Crackles on the base. Heart: S1, S2. Abdomen: Ascites. Extremities: +1 edema. Necrosis toes bilateral. Laboratory Data: WBC 7.8, H and H 9/26.7, platelet 153. Sodium 135, potassium 4.6, bicarb 30, BUN 3 0, creatinine 1.8. The patient had urine output of 1100. Weight-douglas, no change in her weight. Current Medications: The patient on its include fluconazole, meropenem, vancomycin, midodrine 5 mg d aily, IV iron, amitriptyline, Lasix, Megace. Assessment And Plan: 1.Acute kidney injury secondary to hepatorenal/cardiorenal, still over volume. I am going to place the patient on fluid restriction, and I am going to continue the patient on diuresis. We will give t he patient Lasix IV, and we will follow up. 2.Hypertension, currently hypotension. Continue to utilize the blood pressure for more diuresis. C ontinue midodrine. 3.Cirrhosis, as by Primary. 4.Foot infection. Continue current antibiotic. MARIANN/URBANO Voice ID: [id number] Report ID: [id number]
[2018-03-20] MEDS: AMITRIPTYLINE 25 MG TAB PO SCH (20:23)
[2018-03-20] MEDS: VANCOMYCIN/NS 1 gm 1 GM/250 ML BAG IVPB SCH (21:29)
[2018-03-21] MEDS: MORPHINE 2 MG/ML SYR IV PRN ×6 (00:03→23:23)
[2018-03-21] MEDS: PANTOPRAZOLE 40MG TABLET PO SCH (05:54)
[2018-03-21] MEDS: INSULIN -REGULAR HUMAN 50 UNIT/0.5 ML ML SQ SCH ×4 (07:30→21:23)
[2018-03-21] MEDS: SUCRALFATE 1GM/10ML UCUP FT SCH ×4 (08:33→21:19)
[2018-03-21] MEDS: INSULIN GLARGINE 100 UNITS/ML SQ SCH (08:55)
[2018-03-21] MEDS: FLUOXETINE 20 MG CAP PO SCH (08:55)
[2018-03-21] MEDS: MIDODRINE HCL 5 MG TABLET PO SCH (08:56)
[2018-03-21] MEDS: Meropenem 500 MG in NA CHLORIDE 0.9% 100 ML IV SCH ×2 (08:56→21:20)
[2018-03-21] MEDS: FUROSEMIDE 40 MG in NA CHLORIDE 0.9% 46 ML IV SCH (08:57)
[2018-03-21] MEDS: GLUCERNA SHAKE 237 ML CAN PO SCH ×2 (08:58→21:00)
[2018-03-21] MEDS: PROMOD 30 ML DOSE PO SCH ×2 (09:00→21:00)
[2018-03-21] MEDS ORDERED: FUROSEMIDE 40 MG/4 ML VIAL IV SCH (09:00)
[2018-03-21] MEDS: FLUCONAZOLE 100mg IVPB 100 MG/50 ML BAG IV SCH (12:14)
--- NOTE | 2018-03-21 16:10 | P.PN ---
Subjective Date of Service: 03/21/18 Primary Care Provider: Sunni Huff NP Chief Complaint: Respiratory does Pt seen and examined at bedside. Chart Reviewed. Case DW with Gen Surgery. Doing well overall no complaints to offer at this time Review of Systems 10-point ROS is otherwise unremarkable Physical Examination - Vital Signs Temperature: 97.7 F Blood Pressure: 123/73 Pulse: 82 Respirations: 16 Pulse Ox (%): 98 - Physical Exam General: Alert, In no apparent distress HEENT: Atraumatic, PERRLA, EOMI Neck: Supple, JVD not distended Respiratory: Clear to auscultation bilaterally, Normal air movement Cardiovascular: Regular rate/rhythm, Normal S1 S2 Gastrointestinal: Normal bowel sounds, No tenderness Musculoskeletal: Other (BL LE with Necrosis improving however) Integumentary: No rashes Neurological: Normal speech, Normal tone, Normal affect Lymphatics: No axilla or inguinal lymphadenopathy - Studies Medications List Reviewed: Yes Assessment And Plan - Current Problems (Diagnosis) (1) Shortness of breath Current Visit: Yes Status: Acute Plan: Dyspnea secondary to pulmonary edema -S/p Paracentensis -PO lasix at this time -Currently on RA sat well -Will continue to Monitor (2) CHRISTINE (acute kidney injury) Current Visit: Yes Status: Acute Plan: Acute on chronic renal disease stage IV -This is likely exacerbated by medication. -Case discussed with nephrology. Will continue with recommendations by nephrology. -Continue with diuresis. Patient now on oral Lasix (3) Bilateral lower leg cellulitis Onset Date: 02/25/18 Current Visit: Yes Status: Acute Plan: Bilateral cellulitis to the lower extremity with noted moderate osteomyelitis to the base of the proximal right phalanx on the 5th toe, medial aspect of the 5th metatarsal head, and the majority of the 4th metatarsal head along with moderate osteomyelitis with underlying fracture of the left proximal phalanx of the 5th toe -continue IV Vanc and meropenem. Day -Gen Surgery consulted. Appreciate Reccs -Wound care Consulted. Appreciated reccs -ID consulted. Appreciated reccs (4) Osteomyelitis Current Visit: Yes Status: Acute Plan: see # 1 Qualifiers: Osteomyelitis type: subacute Osteomyelitis location: foot Laterality: unspecified laterality Qualified Code(s): M86.279 - Subacute osteomyelitis, unspecified ankle and foot (5) Fall Current Visit: Yes Status: Acute Plan: S/p fall in the hospital -Fall precaution given -Currently WB BL LE -Now working with PT to ambulate. Good candidate for Rehab -No Lovenox due to Thrombocytopenia -Continue to monitor Qualifiers: Encounter type: initial encounter Qualified Code(s): W19.XXXA - Unspecified fall, initial encounter (6) Right femoral fracture Current Visit: Yes Status: Acute Plan: Right Femoral Fracture S.p Fall -Orthopedics consulted. Appreciate Reccs -status post open reduction and fixation POD # 14 -doing well and Pain mgmt with Tramadol -No Lovenox due to Thrombocytopenia 2.2 to Alcoholism -Ambulate with PT Qualifiers: Encounter type: initial encounter Femur location: intertrochanteric Fracture type: closed Fracture alignment: nondisplaced Qualified Code(s): S72.144A - Nondisplaced intertrochanteric fracture of right femur, initial encounter for closed fracture (7) Thrombocytopenia Onset Date: 02/25/18 Current Visit: No Status: Acute Plan: Hold lovenox. Most johnsonley 2.2 to chronic Alcohol abuse -currently platelets is improving (8) Diabetes mellitus, type II Onset Date: 02/04/18 Current Visit: No Status: Chronic Qualifiers: Diabetes mellitus oil heaterman insulin use: without oil heaterman use Diabetes mellitus complication status: with circulatory complication Diabetes mellitus complication detail: with peripheral angiopathy with gangrene Qualified Code(s ): E11.52 - Type 2 diabetes mellitus with diabetic peripheral angiopathy with gangrene (9) Cirrhosis Onset Date: 01/15/17 Current Visit: No Status: Chronic Qualifiers: Hepatic cirrhosis type: alcoholic cirrhosis Ascites presence: without ascites Qualified Code(s): K70.30 - Alcoholic cirrhosis of liver without ascites (10) History of alcohol use Current Visit: No Status: Chronic - Plan Pending clinical placement at this time. Case discussed with certified social workers in health care. Patient not qualify to go to a skilled facility. Only option is probably inpatient rehab or home. Patient will require long-term IV antibiotic therapy for osteomyelitis. Patient will need continued physical therapy post hip repair. Now WB BL LE. Hopefully patient will be accepted to inpatient rehab. Otherwise home with home health. Patient understands this in detail. Discharge Plan: Other Plan to discharge in: 72 Hours - Code Status/Comfort Care Code Status Assessed: Yes Critical Care: No
[2018-03-21] MEDS: AMITRIPTYLINE 25 MG TAB PO SCH (21:19)
[2018-03-22 05:23] LABS: Absolute Lymphocytes (CBC) 0.5 K/uL (0.7-4.9); Absolute Monocytes 0.4 K/uL (0.1-1.3); Absolute Neutrophil 5.3 K/uL (1.8-8.0); Basophils % 0.8 % (0-1.3); Eosinophils % 3.4 % (0-4.4); Hematocrit 26.7 % (36.0-45.0); Lymphocytes % 7.9 % (15.3-44.8); MPV 8.3 fL (7.6-11.3); RBC Red Blood Cell Count 3.03 M/uL (3.86-4.86)
[2018-03-22 05:38] LABS: Bilirubin Total 0.8 mg/dL (0.2-1.0); Magnesium 2.3 mg/dL (1.8-2.4); Phosphorus 4.6 mg/dL (2.5-4.9); Potassium 4.5 mmol/L (3.5-5.1); Protein, Total 6.9 g/dL (6.4-8.2)
[2018-03-22] MEDS: PANTOPRAZOLE 40MG TABLET PO SCH (05:45)
[2018-03-22] MEDS: INSULIN -REGULAR HUMAN 50 UNIT/0.5 ML ML SQ SCH ×4 (07:30→21:10)
[2018-03-22] MEDS: MORPHINE 2 MG/ML SYR IV PRN ×4 (07:32→21:14)
[2018-03-22] MEDS: PROMOD 30 ML DOSE PO SCH ×2 (08:19→21:08)
[2018-03-22] MEDS: MEDIHONEY 44 ML TOPICAL TUBE TOP SCH (08:19)
[2018-03-22] MEDS: GLUCERNA SHAKE 237 ML CAN PO SCH ×2 (08:19→21:09)
[2018-03-22] MEDS: INSULIN GLARGINE 100 UNITS/ML SQ SCH (08:19)
[2018-03-22] MEDS: FUROSEMIDE 40 MG in NA CHLORIDE 0.9% 46 ML IV SCH (08:20)
[2018-03-22] MEDS: Meropenem 500 MG in NA CHLORIDE 0.9% 100 ML IV SCH ×2 (08:20→21:09)
[2018-03-22] MEDS: SUCRALFATE 1GM/10ML UCUP FT SCH ×4 (08:20→21:10)
[2018-03-22] MEDS: MIDODRINE HCL 5 MG TABLET PO SCH (08:21)
[2018-03-22] MEDS: FLUOXETINE 20 MG CAP PO SCH (08:21)
--- NOTE | 2018-03-22 10:19 | P.PN ---
Subjective Date of Service: 03/22/18 Primary Care Provider: Sunni Huff NP Chief Complaint: Respiratory does Pt with Hx of cirrohsis , pt admitted for pancreatitis , hospital; course complicated by hip fracture Pt was started on Abx and devloped CHRISTINE Zosyn changed to merrem no Nasid or contrast urine for eos -ve S/P 3 liter paracentesis on 03/14 Cr stable at ~1.8 I/O if low input will increase lasix monitor vanco level , last was 17 Physical Examination - Vital Signs Temperature: 98.8 F Blood Pressure: 130/65 Pulse: 98 Respirations: 16 Pulse Ox (%): 97 - Physical Exam General: Oriented x3 HEENT: Atraumatic Neck: Supple, Without JVD or thyroid abnormality Respiratory: Clear to auscultation bilaterally, Normal air movement Cardiovascular: Regular rate/rhythm, Normal S1 S2, Edema Gastrointestinal: Normal bowel sounds, Distended - Studies Medications List Reviewed: Yes Assessment And Plan - Current Problems (Diagnosis) (1) CHRISTINE (acute kidney injury) Current Visit: Yes Status: Acute (2) Bilateral lower leg cellulitis Onset Date: 02/25/18 Current Visit: Yes Status: Acute (3) Diabetic neuropathy Onset Date: 02/25/18 Current Visit: Yes Status: Chronic - Plan Acute kidney injury AIN vs ATN Cr stable now ~1.8 Cont to monitor Monitor vanco level daily Wt I/o will consider increasing lasix as per I/o and Wt Cirrhosis abd distension now Cont midodrine lasix Anemia BHAVIN and liver cirrhosis IV Iron Osteomyelitis, status post debridement. Dose adjusted. Follow up vancomycin trough. Diabetes as per primary
[2018-03-22] MEDS: SOD FERRIC GLUC COMPLX/SUCROSE 250 MG in NA CHLORIDE 0.9% 250 ML IV SCH (12:34)
[2018-03-22] MEDS: FLUCONAZOLE 100mg IVPB 100 MG/50 ML BAG IV SCH (12:35)
--- NOTE | 2018-03-22 16:24 | P.PN ---
Subjective Date of Service: 03/22/18 Primary Care Provider: Sunni Huff NP Chief Complaint: Respiratory does Pt seen and examined at bedside. Chart Reviewed. Case DW with Gen Surgery. Doing well overall no complaints to offer at this time Review of Systems 10-point ROS is otherwise unremarkable Physical Examination - Vital Signs Temperature: 98.9 F Blood Pressure: 95/52 Pulse: 88 Respirations: 16 Pulse Ox (%): 91 - Physical Exam General: Alert, In no apparent distress HEENT: Atraumatic, PERRLA, EOMI Neck: Supple, JVD not distended Respiratory: Clear to auscultation bilaterally, Normal air movement Cardiovascular: Regular rate/rhythm, Normal S1 S2 Gastrointestinal: Normal bowel sounds, No tenderness Musculoskeletal: Erythema, Tenderness Integumentary: No rashes Neurological: Normal speech, Normal tone, Normal affect Lymphatics: No axilla or inguinal lymphadenopathy - Studies Medications List Reviewed: Yes Assessment And Plan - Current Problems (Diagnosis) (1) Shortness of breath Current Visit: Yes Status: Acute Plan: Dyspnea secondary to pulmonary edema -PO lasix at this time -Currently on RA sat well -Will continue to Monitor (2) CHRISTINE (acute kidney injury) Current Visit: Yes Status: Acute Plan: Acute on chronic renal disease stage IV -This is likely exacerbated by medication. -Case discussed with nephrology. Will continue with recommendations by nephrology. -Continue with diuresis. Patient now on oral Lasix (3) Bilateral lower leg cellulitis Onset Date: 02/25/18 Current Visit: Yes Status: Acute Plan: Bilateral cellulitis to the lower extremity with noted moderate osteomyelitis to the base of the proximal right phalanx on the 5th toe, medial aspect of the 5th metatarsal head, and the majority of the 4th metatarsal head along with moderate osteomyelitis with underlying fracture of the left proximal phalanx of the 5th toe -continue IV Vanc and meropenem. Day -Gen Surgery consulted. Appreciate Reccs -Wound care Consulted. Appreciated reccs -ID consulted. Appreciated reccs (4) Osteomyelitis Current Visit: Yes Status: Acute Plan: see # 1 Qualifiers: Osteomyelitis type: subacute Osteomyelitis location: foot Laterality: unspecified laterality Qualified Code(s): M86.279 - Subacute osteomyelitis, unspecified ankle and foot (5) Fall Current Visit: Yes Status: Acute Plan: S/p fall in the hospital -Fall precaution given -Currently WB BL LE -Now working with PT to ambulate. Good candidate for Rehab -No Lovenox due to Thrombocytopenia -Continue to monitor Qualifiers: Encounter type: initial encounter Qualified Code(s): W19.XXXA - Unspecified fall, initial encounter (6) Right femoral fracture Current Visit: Yes Status: Acute Plan: Right Femoral Fracture S.p Fall -Orthopedics consulted. Appreciate Reccs -status post open reduction and fixation POD # 15 -doing well and Pain mgmt with Tramadol -No Lovenox due to Thrombocytopenia 2.2 to Alcoholism -Ambulate with PT Qualifiers: Encounter type: initial encounter Femur location: intertrochanteric Fracture type: closed Fracture alignment: nondisplaced Qualified Code(s): S72.144A - Nondisplaced intertrochanteric fracture of right femur, initial encounter for closed fracture (7) Thrombocytopenia Onset Date: 02/25/18 Current Visit: No Status: Acute Plan: Hold lovenox. Most likely 2.2 to chronic Alcohol abuse -currently platelets is improving (8) Diabetes mellitus, type II Onset Date: 02/04/18 Current Visit: No Status: Chronic Qualifiers: Diabetes mellitus intermediate school teacher insulin use: without residential use Diabetes mellitus complication status: with circulatory complication Diabetes mellitus complication detail: with peripheral angiopathy with gangrene Qualified Code(s ): E11.52 - Type 2 diabetes mellitus with diabetic peripheral angiopathy with gangrene (9) Cirrhosis Onset Date: 01/15/17 Current Visit: No Status: Chronic Qualifiers: Hepatic cirrhosis type: alcoholic cirrhosis Ascites presence: without ascites Qualified Code(s): K70.30 - Alcoholic cirrhosis of liver without ascites (10) History of alcohol use Current Visit: No Status: Chronic - Plan Pending clinical placement at this time. Case discussed with secondary social studies teacher. Patient not qualify to go to a skilled facility. Only option is probably inpatient rehab or home. Patient will require long-term IV antibiotic therapy for osteomyelitis. Patient will need continued physical therapy post hip repair. Now WB BL LE. Hopefully patient will be accepted to inpatient rehab. Otherwise home with home health. Patient understands this in detail.
[2018-03-22] MEDS: AMITRIPTYLINE 25 MG TAB PO SCH (21:09)
[2018-03-22] MEDS: VANCOMYCIN/NS 1 gm 1 GM/250 ML BAG IVPB SCH (22:33)
[2018-03-23] MEDS: MORPHINE 2 MG/ML SYR IV PRN ×5 (01:11→21:18)
[2018-03-23 05:18] LABS: Absolute Lymphocytes (CBC) 0.8 K/uL (0.7-4.9); Absolute Monocytes 0.9 K/uL (0.1-1.3); Absolute Neutrophil 6.5 K/uL (1.8-8.0); Basophils % 0.7 % (0-1.3); Eosinophils % 4.2 % (0-4.4); Hematocrit 23.8 % (36.0-45.0); Lymphocytes % 9.6 % (15.3-44.8); MPV 8.3 fL (7.6-11.3); Monocytes % 10.1 % (3.3-12.3); RBC Red Blood Cell Count 2.69 M/uL (3.86-4.86)
[2018-03-23 05:39] LABS: Albumin 1.8 g/dL (3.4-5.0); Bilirubin Total 0.6 mg/dL (0.2-1.0); Potassium 4.2 mmol/L (3.5-5.1); Protein, Total 6.4 g/dL (6.4-8.2)
[2018-03-23] MEDS: PANTOPRAZOLE 40MG TABLET PO SCH (05:56)
[2018-03-23] MEDS: INSULIN -REGULAR HUMAN 50 UNIT/0.5 ML ML SQ SCH ×4 (07:30→21:16)
[2018-03-23] MEDS: SUCRALFATE 1GM/10ML UCUP FT SCH ×4 (07:30→21:16)
[2018-03-23] MEDS: PROMOD 30 ML DOSE PO SCH ×2 (09:00→21:00)
[2018-03-23] MEDS: MIDODRINE HCL 5 MG TABLET PO SCH (09:01)
[2018-03-23] MEDS: FLUOXETINE 20 MG CAP PO SCH (09:01)
[2018-03-23] MEDS: Meropenem 500 MG in NA CHLORIDE 0.9% 100 ML IV SCH ×2 (09:02→21:15)
[2018-03-23] MEDS: INSULIN GLARGINE 100 UNITS/ML SQ SCH (09:02)
[2018-03-23] MEDS: MEDIHONEY 44 ML TOPICAL TUBE TOP SCH (09:03)
[2018-03-23] MEDS: GLUCERNA SHAKE 237 ML CAN PO SCH ×2 (09:04→21:15)
--- NOTE | 2018-03-23 09:57 | P.PN ---
Subjective Date of Service: 04/02/18 Primary Care Provider: Sunni Huff NP Chief Complaint: Respiratory does Pt with Hx of cirrohsis , pt admitted for pancreatitis , hospital; course complicated by hip fracture Pt was started on Abx and devloped CHRISTINE S/P 3 liter paracentesis on 03/14 Cr stable at ~1.8 I/O Vanc level 17 Will increase lasix to bid Physical Examination - Vital Signs Temperature: 97.5 F Blood Pressure: 139/65 Pulse: 83 Respirations: 16 Pulse Ox (%): 97 - Physical Exam General: Oriented x3 HEENT: Atraumatic Neck: Supple, Without JVD or thyroid abnormality Respiratory: Clear to auscultation bilaterally Cardiovascular: Regular rate/rhythm, Normal S1 S2, Edema Gastrointestinal: Normal bowel sounds, Distended - Studies Medications List Reviewed: Yes Assessment And Plan - Current Problems (Diagnosis) (1) CHRISTINE (acute kidney injury) Status: Acute (2) Bilateral lower leg cellulitis Onset Date: 02/25/18 Status: Acute (3) Diabetic neuropathy Onset Date: 02/25/18 Status: Chronic - Plan Acute kidney injury AIN vs ATN Cr stable now ~1.8 Cont to monitor Monitor vanco level daily Wt I/o Zosyn changed to merrem no Nasid or contrast urine for eos -ve Cirrhosis abd distension now Cont midodrine will increase lasix to bid Anemia BHAVIN and liver cirrhosis IV Iron Osteomyelitis, status post debridement. Dose adjusted. Follow up vancomycin trough. Diabetes as per primary Physician Review: Patient Assessed, Agree with Above Assessment and Plan
[2018-03-23] MEDS: FUROSEMIDE 40 MG in NA CHLORIDE 0.9% 46 ML IV SCH ×2 (10:00→21:16)
--- NOTE | 2018-03-23 10:29 | P.PN ---
Subjective Date of Service: 03/23/18 Primary Care Provider: Sunni Huff NP Chief Complaint: Respiratory does Pt seen and examined at bedside. Chart Reviewed. Case DW with Gen Surgery. Doing well overall no complaints to offer at this time Review of Systems 10-point ROS is otherwise unremarkable Physical Examination - Vital Signs Temperature: 97.5 F Blood Pressure: 139/65 Pulse: 83 Respirations: 16 Pulse Ox (%): 97 - Physical Exam General: Alert, In no apparent distress HEENT: Atraumatic, PERRLA, EOMI Neck: Supple, JVD not distended Respiratory: Clear to auscultation bilaterally, Normal air movement Cardiovascular: Regular rate/rhythm, Normal S1 S2 Gastrointestinal: Normal bowel sounds, No tenderness Musculoskeletal: No tenderness, Swelling Integumentary: No rashes Neurological: Normal speech, Normal tone, Normal affect Lymphatics: No axilla or inguinal lymphadenopathy - Studies Medications List Reviewed: Yes Assessment And Plan - Current Problems (Diagnosis) (1) Shortness of breath Current Visit: Yes Status: Acute Plan: Dyspnea secondary to pulmonary edema -PO lasix at this time, Increased today due to Increase in LE swelling. -Currently on RA sat well -Will continue to Monitor (2) CHRISTINE (acute kidney injury) Current Visit: Yes Status: Acute Plan: Acute on chronic renal disease stage IV -This is likely exacerbated by medication. -Case discussed with nephrology. Will continue with recommendations by nephrology. -Continue with diuresis. Patient now on oral Lasix (3) Bilateral lower leg cellulitis Onset Date: 02/25/18 Current Visit: Yes Status: Acute Plan: Bilateral cellulitis to the lower extremity with noted moderate osteomyelitis to the base of the proximal right phalanx on the 5th toe, medial aspect of the 5th metatarsal head, and the majority of the 4th metatarsal head along with moderate osteomyelitis with underlying fracture of the left proximal phalanx of the 5th toe -continue IV Vanc and meropenem. Day -Gen Surgery consulted. Appreciate Reccs -Wound care Consulted. Appreciated reccs -ID consulted. Appreciated reccs (4) Osteomyelitis Current Visit: Yes Status: Acute Plan: see # 1 Qualifiers: Osteomyelitis type: subacute Osteomyelitis location: foot Laterality: unspecified laterality Qualified Code(s): M86.279 - Subacute osteomyelitis, unspecified ankle and foot (5) Fall Current Visit: Yes Status: Acute Plan: S/p fall in the hospital -Fall precaution given -Currently WB BL LE -Now working with PT to ambulate. Good candidate for Rehab -No Lovenox due to Thrombocytopenia -Continue to monitor Qualifiers: Encounter type: initial encounter Qualified Code(s): W19.XXXA - Unspecified fall, initial encounter (6) Right femoral fracture Current Visit: Yes Status: Acute Plan: Right Femoral Fracture S.p Fall -Orthopedics consulted. Appreciate Reccs -status post open reduction and fixation POD # 16 -doing well and Pain mgmt with Tramadol -No Lovenox due to Thrombocytopenia 2.2 to Alcoholism -Ambulate with PT Qualifiers: Encounter type: initial encounter Femur location: intertrochanteric Fracture type: closed Fracture alignment: nondisplaced Qualified Code(s): S72.144A - Nondisplaced intertrochanteric fracture of right femur, initial encounter for closed fracture (7) Thrombocytopenia Onset Date: 02/25/18 Current Visit: No Status: Acute Plan: Hold lovenox. Most likely 2.2 to chronic Alcohol abuse -currently platelets is improving (8) Diabetes mellitus, type II Onset Date: 02/04/18 Current Visit: No Status: Chronic Qualifiers: Diabetes mellitus long term acute care registered nurse insulin use: without long term acute care registered nurse use Diabetes mellitus complication status: with circulatory complication Diabetes mellitus complication detail: with peripheral angiopathy with gangrene Qualified Code(s ): E11.52 - Type 2 diabetes mellitus with diabetic peripheral angiopathy with gangrene (9) Cirrhosis Onset Date: 01/15/17 Current Visit: No Status: Chronic Qualifiers: Hepatic cirrhosis type: alcoholic cirrhosis Ascites presence: without ascites Qualified Code(s): K70.30 - Alcoholic cirrhosis of liver without ascites (10) History of alcohol use Current Visit: No Status: Chronic - Plan Pending clinical placement at this time. Case discussed with professor of social work. Patient not qualify to go to a skilled facility. Only option is probably inpatient rehab or home. Patient will require long-term IV antibiotic therapy for osteomyelitis. Patient will need continued physical therapy post hip repair. Now WB BL LE. Hopefully patient will be accepted to inpatient rehab. Otherwise home with home health. Patient understands this in detail. Discharge Plan: Other Plan to discharge in: 48 Hours - Code Status/Comfort Care Code Status Assessed: Yes Critical Care: No
[2018-03-23] MEDS: FLUCONAZOLE 100mg IVPB 100 MG/50 ML BAG IV SCH (11:24)
[2018-03-23] MEDS: AMITRIPTYLINE 25 MG TAB PO SCH (21:17)
[2018-03-24] MEDS: MORPHINE 2 MG/ML SYR IV PRN ×2 (05:05→08:18)
[2018-03-24] MEDS: PANTOPRAZOLE 40MG TABLET PO SCH (05:05)
[2018-03-24 05:28] LABS: Absolute Lymphocytes (CBC) 0.8 K/uL (0.7-4.9); Absolute Monocytes 0.7 K/uL (0.1-1.3); Absolute Neutrophil 4.5 K/uL (1.8-8.0); Basophils % 0.8 % (0-1.3); Eosinophils % 7.1 % (0-4.4); Hematocrit 25.8 % (36.0-45.0); Lymphocytes % 12.1 % (15.3-44.8); Monocytes % 10.6 % (3.3-12.3); RBC Red Blood Cell Count 2.93 M/uL (3.86-4.86)
[2018-03-24 05:44] LABS: Bilirubin Total 0.6 mg/dL (0.2-1.0); Potassium 4.1 mmol/L (3.5-5.1); Protein, Total 7.1 g/dL (6.4-8.2)
[2018-03-24] MEDS: INSULIN -REGULAR HUMAN 50 UNIT/0.5 ML ML SQ SCH ×2 (07:30→11:30)
[2018-03-24] MEDS: MEDIHONEY 44 ML TOPICAL TUBE TOP SCH (08:14)
[2018-03-24] MEDS: FUROSEMIDE 40 MG in NA CHLORIDE 0.9% 46 ML IV SCH (08:17)
[2018-03-24] MEDS: SUCRALFATE 1GM/10ML UCUP FT SCH ×2 (08:26→11:19)
[2018-03-24] MEDS: INSULIN GLARGINE 100 UNITS/ML SQ SCH (08:26)
[2018-03-24] MEDS: GLUCERNA SHAKE 237 ML CAN PO SCH (08:27)
[2018-03-24] MEDS: MIDODRINE HCL 5 MG TABLET PO SCH (08:29)
[2018-03-24] MEDS: PROMOD 30 ML DOSE PO SCH (08:32)
[2018-03-24] MEDS: FLUOXETINE 20 MG CAP PO SCH (08:32)
[2018-03-24] MEDS: Meropenem 500 MG in NA CHLORIDE 0.9% 100 ML IV SCH (09:00)
[2018-03-24 09:03] VITALS: O2SAT 96
[2018-03-24] MEDS ORDERED: Meropenem 500 MG in NA CHLORIDE 0.9% 100 ML IV SCH (11:00)
--- NOTE | 2018-03-24 11:46 | P.PN ---
Subjective Date of Service: 04/02/18 Primary Care Provider: Sunni Huff NP Chief Complaint: Respiratory does Pt with Hx of cirrohsis , pt admitted for pancreatitis , hospital; course complicated by hip fracture Pt was started on Abx and devloped CHRISTINE S/P 3 liter paracentesis on 03/14 Cr stable at ~1.8 I/O Monitor vanco level Lasix increased to bid, edema slightly improve Physical Examination - Vital Signs Temperature: 97.5 F Blood Pressure: 130/67 Pulse: 77 Respirations: 12 Pulse Ox (%): 97 - Physical Exam General: In no apparent distress, Oriented x3 HEENT: Atraumatic Neck: Supple, Without JVD or thyroid abnormality Respiratory: Clear to auscultation bilaterally, Normal air movement Cardiovascular: Normal pulses, Regular rate/rhythm, Normal S1 S2, No rubs, No murmurs, Edema Gastrointestinal: Distended - Studies Medications List Reviewed: Yes Assessment And Plan - Current Problems (Diagnosis) (1) CHRISTINE (acute kidney injury) Status: Acute (2) Bilateral lower leg cellulitis Onset Date: 02/25/18 Status: Acute (3) Diabetic neuropathy Onset Date: 02/25/18 Status: Chronic - Plan Acute kidney injury AIN vs ATN Cr stable now ~1.8 Cont to monitor Monitor vanco level daily Wt I/o Zosyn changed to merrem no Nasid or contrast urine for eos -ve Cirrhosis Cont midodrine lasix increased to bid Anemia BHAVIN and liver cirrhosis Completed IV Iron Osteomyelitis, status post debridement. Follow up vancomycin trough. Diabetes as per primary
[2018-03-24] MEDS: FLUCONAZOLE 100mg IVPB 100 MG/50 ML BAG IV SCH (12:25)
--- NOTE | 2018-03-24 14:47 | P.DS ---
Admission Date: 02/23/18 Discharge Date: 03/24/18 Primary Care Provider: Sunni Huff NP Disposition: TRANSFER TO INPATIENT REHAB Discharge Condition: FAIR Reason for Admission: Respiratory does Consultations: General Surgery Orthopedics Nephrology Cardiology - Problems (1) Shortness of breath Status: Acute (2) CHRISTINE (acute kidney injury) Status: Acute (3) Bilateral lower leg cellulitis Onset Date: 02/25/18 Status: Acute (4) Osteomyelitis Status: Acute Qualifiers: Osteomyelitis type: subacute Osteomyelitis location: foot Laterality: unspecified laterality Qualified Code(s): M86.279 - Subacute osteomyelitis, unspecified ankle and foot (5) Fall Status: Acute Qualifiers: Encounter type: initial encounter Qualified Code(s): W19.XXXA - Unspecified fall, initial encounter (6) Right femoral fracture Status: Acute Qualifiers: Encounter type: initial encounter Femur location: intertrochanteric Fracture type: closed Fracture alignment: nondisplaced Qualified Code(s): S72.144A - Nondisplaced intertrochanteric fracture of right femur, initial encounter for closed fracture (7) Thrombocytopenia Onset Date: 02/25/18 Status: Acute (8) Diabetes mellitus, type II Onset Date: 02/04/18 Status: Chronic Qualifiers: Diabetes mellitus director long term care insulin use: without snf use Diabetes mellitus complication status: with circulatory complication Diabetes mellitus complication detail: with peripheral angiopathy with gangrene Qualified Code(s ): E11.52 - Type 2 diabetes mellitus with diabetic peripheral angiopathy with gangrene (9) Cirrhosis Onset Date: 01/15/17 Status: Chronic Qualifiers: Hepatic cirrhosis type: alcoholic cirrhosis Ascites presence: without ascites Qualified Code(s): K70.30 - Alcoholic cirrhosis of liver without ascites (10) History of alcohol use Status: Chronic Brief History of Present Illness: Patient is a 42-year-old female who was recently admitted to the hospital with cellulitis of the left lower extremity. Patient has significant erythema and swelling of the bilateral legs. It was worse on the left side. She was treated and discharged home. She saw Dr. Osborne in the hospital on her last admission. When she went home she states her legs kept getting worse. They became more erythematous. They had a blister on leg as well. She was concerned and she decided to come into the hospital for further evaluation. In the emergency room patient had labs as well as x-rays and Doppler studies. Patient has a fracture of the 5th metatarsal on the right foot. The blister was seen on the left foot x-ray but no air the soft tissues. We decided to admit the patient to the hospital for treatment with IV antibiotics. Hospital Course: Overall during the hospital stay patient remained stable Patient was initially admitted to the hospital for Bilateral cellulitis to the lower extremity with noted moderate osteomyelitis to the base of the proximal right phalanx on the 5th toe, medial aspect of the 5th metatarsal head, and the majority of the 4th metatarsal head along with moderate osteomyelitis with underlying fracture of the left proximal phalanx of the 5th toe. Patient seen and evaluated by general surgery. No surgical intervention was required. Surgery recommended IV antibiotic therapy. Nonweightbearing status initially recommended and now to full weight-bearing status. Patient with marked improvement of bilateral lower extremity cellulitis. Antibiotics Medications were adjusted during her stay. Recommendation is to continue with 6 weeks of antibiotic therapy. Patient currently on vancomycin and meropenem. Patient on day 28 out of 42 days. Pharmacy to monitor and adjust per renal function. Patient's hospital course was complicated by fall during hospital stay which led to a right femoral fracture. Patient was seen and evaluated by Orthopedics. Patient had open reduction internal fixation. Patient tolerated the procedure well and no complications were noted from that. Patient worked with physical therapy after that here in the hospital. Patient had inpatient rehab consulted for further intensive therapy to get back to her previous level of activity. No anticoagulation due to history of thrombocytopenia secondary to alcoholic cirrhosis. During the course of the hospital stay patient also developed acute dyspnea secondary to pulmonary edema due to her underlying chronic alcoholic cirrhosis. Patient was started on IV Lasix here in the hospital and had marked improvement in her symptoms. Patient was also placed on fluid restriction during the course of the her hospital stay. Patient did also receive paracentesis here to help with her dyspnea and ascites. Patient was able to ambulate and well on room air. Patient also was found to have acute on chronic renal disease. Nephrology was consulted here in the hospital. Thought that her acute disease was most likely exacerbated by the current medication. Medications were adjusted here in the hospital. Patient recovered well. Nephrology to continue following patient here in the hospital. Patient's kidney function returned to baseline. No other complaints to offer. Patient was also found to have oral candidiasis while here in the hospital and was started on Diflucan for total of 7 days. All other chronic conditions remained stable while here in the hospital. Patient was referred over to inpatient rehab to continue her care and was accepted by the rehab and was transferred over there for further rehab. Patient is to continue taking the vanc and meropenem for total of 42 days. Continue taking Diflucan for another 7 days. Vital Signs/Physical Exam: Temp Pulse Resp BP Pulse Ox 97.6 F 79 16 108/52 L 97 03/24/18 12:00 03/24/18 12:00 03/24/18 12:00 03/24/18 12:00 03/24/18 12:00 General: Alert, In no apparent distress HEENT: Atraumatic, PERRLA, EOMI Neck: Supple, JVD not distended Respiratory: Clear to auscultation bilaterally, Normal air movement Cardiovascular: Regular rate/rhythm, Normal S1 S2 Gastrointestinal: Normal bowel sounds, No tenderness Musculoskeletal: Swelling, Erythema, Tenderness Integumentary: No rashes Neurological: Normal speech, Normal tone, Normal affect Lymphatics: No axilla or inguinal lymphadenopathy Laboratory Data at Discharge: WBC 6.5 K/uL (4.3-10.9) D 03/24/18 05:15 Hgb 9.0 g/dL (12.0-15.0) L 03/24/18 05:15 Hct 25.8 % (36.0-45.0) L 03/24/18 05:15 Plt Count 135 K/uL (152-406) L 03/24/18 05:15 PT 14.6 SECONDS (9.5-12.5) H 03/05/18 08:55 INR 1.23 03/05/18 08:55 APTT 36.8 SECONDS (24.3-36.9) 03/05/18 08:55 Sodium 135 mmol/L (136-145) L 03/24/18 05:15 Potassium 4.1 mmol/L (3.5-5.1) 03/24/18 05:15 BUN 29 mg/dL (7-18) H 03/24/18 05:15 Creatinine 1.84 mg/dL (0.55-1.3) H 03/24/18 05:15 Glucose 147 mg/dL (74-106) H 03/24/18 05:15 Phosphorus 4.6 mg/dL (2.5-4.9) 03/22/18 04:55 Magnesium 2.3 mg/dL (1.8-2.4) 03/22/18 04:55 Total Bilirubin 0.6 mg/dL (0.2-1.0) 03/24/18 05:15 AST 52 U/L (15-37) H 03/24/18 05:15 ALT 30 U/L (12-78) 03/24/18 05:15 Alkaline Phosphatase 559 U/L (45-117) H 03/24/18 05:15 Home Medications: Amitriptyline [Elavil*] 25 mg PO BEDTIME 02/02/18 Fluoxetine HCl [Prozac] 40 mg PO DAILY 02/02/18 Pantoprazole [Protonix Tab*] 40 mg PO [id number] 02/02/18 Gabapentin [Neurontin*] 100 mg PO BID #60 cap 02/06/18 Insulin Glargine,Hum.rec.anlog [Toujeo Solostar] 25 unit SQ [id number] #1 insuln.pen 02/06/18 Alendronate Sodium [Fosamax] 70 mg PO DIRECTED 02/23/18 Insulin Glargine,Hum.rec.anlog [Toujeo Solostar] 25 units SQ DAILY 02/23/18 Iron 65 mg PO BID 02/23/18 Patient Discharge Instructions: 1. Patient be transferred to Inpatient Rehab to continue her care. 2. Hospital course was complicated related to bilateral cellulitis secondary to osteomyelitis of the bilateral feet, fall leading to hip fracture status post repair, and dyspnea secondary to pulmonary edema. 3. Patient with dyspnea secondary to pulmonary edema. Patient continues to improve. Patient will continue with Lasix daily. She will continue with a 1500 cc per day fluid restriction. During the course of her stay patient had paracentesis done. She is to maintain sats above 90%. 4. Patient had ascites with noted chronic alcoholic cirrhosis. Paracentesis done. 3 L removed. No DVT prophylaxis is recommended due to her cirrhosis. 5. Patient had Acute on chronic renal disease stage IV. Patient seen by nephrology. This was exacerbated by medication. Medication adjusted. At discharge she may follow up with nephrology in 2-4 weeks. Recommendation to recheck lab-BMP in 1 week. 6. Patient had a fall during her hospital stay. This led to a right femoral fracture. Patient seen and evaluated by orthopedics. Patient had repair. Currently postop day. Patient will continue with physical therapy at skilled facility. Fall precautions in place. 7. Patient with Bilateral cellulitis to the lower extremity with noted moderate osteomyelitis to the base of the proximal right phalanx on the 5th toe, medial aspect of the 5th metatarsal head , and the majority of the 4th metatarsal head along with moderate osteomyelitis with underlying fracture of the left proximal phalanx of the 5th toe. Patient seen and evaluated by surgery. No surgical intervention was required. Surgery recommended IV antibiotic therapy. Medications were adjusted during her stay. Recommendation is to continue with 6 weeks of antibiotic therapy. Patient currently on vancomycin and meropenem. Patient on day 21 out of 42 days. Pharmacy to monitor and adjust per renal function. 8. Patient has Oral candidiasis. Patient will continue with Diflucan for total 7 days. Patient may also continue with Carafate and Magic Mouthwash. 9. Patient has Diabetes mellitus type 2, insulin dependent. Patient will continue with basal insulin. Recommendation is to maintain blood sugars less 140 fasting and less than 200 after meals. Further adjustment can be done by skilled facility. 10. Patient has Peripheral vascular disease. Tobacco cessation addressed in detail. This can be further addressed as an outpatient. 11. Patient has Depression with anxiety. Patient will continue with her medication. 12. Patient has Diabetic neuropathy. Patient will continue with Neurontin. 13. Patient has Thrombocytopenia likely related to alcoholic cirrhosis: Thrombocytopenia improved. No DVT prophylaxis with Lovenox is recommended. 14. Patient has anemia of chronic disease. This can be monitored closely by PCP or nephrology. Patient received IV iron during the course of her stay. Diet: Regular Activity: Ad yvon Followup: Ruben Puentes MD [ACTIVE - CAN ADMIT] - (call to schedule appoinment) Vijay Osborne MD [ACTIVE - CAN ADMIT] - (call to schedule appoinment)
[2018-04-02 21:12] VITALS: TEMP 97.5
[2018-04-02 21:13] VITALS: BP 130/67
== END 2018-03-24 13:53 | DRG 981 ==
LOC: ER 10:39 → ERHOLD 14:25 → 2ND 17:00 → 3RD-ICU 03-12 09:02 → 4TH 03-14 12:22
PROVIDERS: ADMIT Family Medicine; ATTEND Family Medicine
PROC: 02HV33Z Insertion of Infusion Device into Superior Vena Cava, Percutaneous Approach (ICD-10-PCS; principal; 2018-02-25)
PROC: B548ZZA Ultrasonography of Superior Vena Cava, Guidance (ICD-10-PCS; 2018-02-25)
PROC: 30233N1 Transfusion of Nonautologous Red Blood Cells into Peripheral Vein, Percutaneous Approach (ICD-10-PCS; 2018-03-05)
PROC: 0QS606Z Reposition Right Upper Femur with Intramedullary Internal Fixation Device, Open Approach (ICD-10-PCS; 2018-03-05)
PROC: 0QS6XZZ Reposition Right Upper Femur, External Approach (ICD-10-PCS; 2018-03-05)
PROC: 0JDR3ZZ Extraction of Left Foot Subcutaneous Tissue and Fascia, Percutaneous Approach (ICD-10-PCS; 2018-03-13)
PROC: 0W9G3ZZ Drainage of Peritoneal Cavity, Percutaneous Approach (ICD-10-PCS; 2018-03-13)
DX: L03.116 Cellulitis of left lower limb (principal); N17.0 Acute kidney failure with tubular necrosis; S72.21XA Displaced subtrochanteric fracture of right femur, initial encounter for closed fracture; S72.141A Displaced intertrochanteric fracture of right femur, initial encounter for closed fracture; K76.7 Hepatorenal syndrome; J81.0 Acute pulmonary edema; E11.52 Type 2 diabetes mellitus with diabetic peripheral angiopathy with gangrene; M86.171 Other acute osteomyelitis, right ankle and foot; M84.478A Pathological fracture, left toe(s), initial encounter for fracture; M86.172 Other acute osteomyelitis, left ankle and foot; N18.4 Chronic kidney disease, stage 4 (severe); N17.9 Acute kidney failure, unspecified; B37.0 Candidal stomatitis; L03.115 Cellulitis of right lower limb; Z88.0 Allergy status to penicillin; F17.210 Nicotine dependence, cigarettes, uncomplicated; E11.40 Type 2 diabetes mellitus with diabetic neuropathy, unspecified; F32.9 Major depressive disorder, single episode, unspecified; G47.00 Insomnia, unspecified; D69.6 Thrombocytopenia, unspecified; K70.30 Alcoholic cirrhosis of liver without ascites; E87.6 Hypokalemia; F41.9 Anxiety disorder, unspecified; Z91.19 Patient's noncompliance with other medical treatment and regimen; W01.0XXA Fall on same level from slipping, tripping and stumbling without subsequent striking against object, initial encounter; Y93.89 Activity, other specified; Y92.231 Patient bathroom in hospital as the place of occurrence of the external cause; T36.0X5A Adverse effect of penicillins, initial encounter; Y92.230 Patient room in hospital as the place of occurrence of the external cause; I95.9 Hypotension, unspecified; D63.1 Anemia in chronic kidney disease; R06.00 Dyspnea, unspecified
CPT/HCPCS: 36415; 36430; 49083; 71045; 73530; 74018; 74176; 80048; 80053; 80069; 80076; 80202; 80307; 81003; 81015; 82140; 82565; 82570; 82607; 82728; 82947; 82962; 83010; 83036; 83540; 83605; 83615; 83735; 83880; 84100; 84132; 84145; 84156; 84300; 84443; 84466; 84484; 85014; 85018; 85025; 85610; 85730; 86140; 86850; 86900; 86901; 87040; 87086; 87088; 87493; 88108; 93005; 93306; 93925; 93970; 93971; 96365; 96366; 96375; 97110; 97116; 97163; 97166; 97530; 97542; 99285; J1100; J1170; J1450; J1650; J1940; J2185; J2270; J2405; J2543; J2704; J2916; J2997; J3010; J3370; J3590; J7030; P9016; P9047

== ENCOUNTER 2018-03-24 12:45 | Inpatient (IN) | payer OTHER ==
--- NOTE | 2018-03-24 13:37 | R.PREADM ---
SCREENING DATE AND TIME 03/24/2018 12:56 (GROUND SERVICE EQUIPMENT MECHANIC) ANTICIPATED REHAB ADMISSION DATE 03/26/2018 REFERRING FACILITY [facility] REFERRAL DATE AND TIME 03/24/2018 12:56 (GROUND SERVICE EQUIPMENT MECHANIC) ACUTE ADMIT DATE 02/23/2018 Previous Rehabilitation(s): No. REFERRING PHYSICIAN Zara Morris REHAB FACILITY [facility] CLINICAL LIAISON Erlin Renee PHYSICIAN REVIEWER Dr. Praful Triana M.D. MR# [id number] NAME [place] ADDRESS [address] [place] [address] PHONE [facility] [id number] DATE OF 1975 AGE 42 SSN# [id number] GENDER female MARITAL STATUS RACE ADMIT FROM 02 - [facility] PRE-HOSPITAL LIVING SETTING 01 - Home (private home/apt. board/care, assisted living, correction, transitional living) HOME TYPE AND DETAILS Type of home: single family house # of steps to enter the residence: 0 # of steps within the residence: 0 # of levels in the residence: 1 PRE-HOSPITAL LIVING WITH Family/Relatives FAMILY SUPPORT Yes PRIMARY FAMILY CONTACT NAME Karl York PRIMARY FAMILY CONTACT PHONE PHONE PRIMARY FAMILY CONTACT ON ADM.? no IS PRIMARY FAMILY CONTACT AUTH. REP.? no 1ST EMERGENCY CONTACT Karl York 1ST CONTACT PHONE PHONE 1ST CONTACT ON ADM. no IS 1ST CONTACT AUTH. REP.? no PHONE 2ND CONTACT ON ADM.? no PATIENT EMPLOYMENT STATUS Not Working PATIENT EMPLOYER No Employer PAYOR INFORMATION: 1ST PAYOR NAME medicaid 1ST PAYOR INJURY/ILLNESS DUE TO ACCIDENT? No ANOTHER CONSTITUTION PARTY RESPONSIBLE? No PRIMARY REHAB/ACUTE DIAGNOSIS: Right hip comminuted intertrochanteric and subtrochanteric femur fracture ONSET DATE 03/04/2018 REHAB IMPAIRMENT CATEGORY (OLIVER): 07 Fracture of LE (FracLE) MEETS 60% rule AFFECTED EXTREMITIES: RLE PRIMARY DIAGNOSIS-RELATED SURGERIES: Emergency Unilateral Hip Fracture - performed by Zara Morris on 03/04/2018 COMORBID REHAB/ACUTE DIAGNOSES: - N/A acute kidney injury DIABETIC NEUROPATHY bilateral lower leg cellulitis SUMMARY OF ACUTE HOSPITALIZATION: Pt. is a 42 yo Right-handed female. On 03/04/2018 she was admitted to [facility] and underwent emergency surgery fo r Right hip comminuted intertrochanteric and subtrochanteric femur fracture (Unilateral Hip Fracture) by Zara Morris. Pre-morbidly, Pt. was independent/mod-I in Communication, Social Cognition, Self-Care, Sphincter Cont rol, Transfers Control, and Locomotion; and she had good Sphincter Control. Currently, she has deficits of Communication, Social Cognition, Balance, Endurance, Safety Awareness, Transfers Control, Locomotion, and Self-Care. Pt. is now referred to [facility] for acute in-patient rehabilitation in order to maximize patient's functional independence in activities of daily living, strength, ROM, and mobi lity. Patient has realistic goal of being discharged at assistance level 3-modA to reside at Home with Fam riaz/Relatives. PAST MEDICAL HISTORY DIABETIC NEUROPATHY acute kidney injury bilateral lower leg cellulitis MEDICATION ALLERGIES: acetaminophen PENICILLINS ENVIRONMENTAL ALLERGIES: - Substance Allergies None Known - Other Allergies None Known CODE STATUS: Full code WEIGHT/HEIGHT/BMI: WEIGHT 137 lbs HEIGHT 5' 6" BMI 22.1 DIET: - Diet Type Regular - Diet - Solid Texture Regular - Diet - Liquid Texture Regular - Tube Feed N/A SKIN DIAGRAM: Incision on Right hip; extent - small; stage - NS(Not Stageable). Treatment - Per Physician's Orders. REVIEW OF SYSTEMS: - Gen Alert and awake Lying in bed No apparent distress Oriented to: person, time, and place - Vital Signs Vital signs stable, afebrile - CVS RRR VITAL SIGNS Temperature: 97.6 F SBP/DBP: 108/52 Pulse: 79 Resp: 16 Vital signs stable, afebrile CURRENT SPHINCTER CONTROL: Pre-hospital bladder status: continent # of bladder accidents in the last 7 days prior to screenin Pre-hospital bowel status: continent # of bowel accidents in the last 7 days prior to screenin Last Bowel Movement Date: 03/24/2018 DETAILED CURRENT FUNCTIONAL STATUS: - Bladder accident frequency: Ind - No accidents in the past 7 days - Bowel accident frequency: Ind - No accidents in the past 7 days - Walking score based on distance walked: 2(5980ft) FUNCTIONAL STATUS: - Self-Care A. Eating Ind Ind B. Grooming Ind Ind C. Bathing Ind Ind D. Dressing - Upper Ind sup E. Dressing - Lower Ind Ceasar F. Toileting Ind modA - Sphincter Control G: Bladder control Ind Ind H: Bowel control Ind Ind - Transfers Control I. Bed/Chair/Wheelchair Ind sup J. Toilet Ind Ceasar K. Tub/Shower Ind Ceasar - Locomotion L. Walk/Wheelchair (B) Ind modA M. Stairs Ind ADNO - Communication N. Comprehension (B) Ind sup O. Expression (B) Ind sup - Social Cognition P. Social Interaction Ind Ceasar Q. Problem Solving Ind sup R. Memory Ind Deven - Endurance Fair - Balance Fair - Safety Awareness Poor CURRENT FUNC. DEFICITS: Communication, Social Cognition, Balance, Endurance, Safety Awareness, Transfers Control, Locomotion, and Self-Care THERAPY NOTES FROM ACUTE CARE: Attached. SPECIAL NEEDS: - Safety Concerns Skin breakdown precautions needed due to skin breakdown risk PRECAUTIONS: - Posterior Hip Precaution No adduction across midline No external rotation No hip flexion >90 degrees No internal rotation No wheel chair propulsion - Weight Bearing Precaution TTWB right LE PATIENT NEEDS ACTIVE AND ONGOING THERAPEUTIC INTERVENTION OF MULTIPLE THERAPY DISCIPLINES, INCLUDING: - Occupational Therapy Evaluate and Treat. - Physical Therapy Evaluate and Treat. PATIENT NEEDS CLOSE MEDICAL SUPERVISION BY A REHABILITATION PHYSICIAN FOR: Bowel and Bladder Management Coordination of Treatment Team Medical and Co-Morbidity Management Post-Op Complications Wound Care PATIENT REQUIRES 24X7 REHAB NURSING FOR MEDICAL AND FUNCTIONAL MGT. OF THE FOLLOWING DEFICITS: ADL's Ambulation Bowel and Bladder Management Cognition Communication Disease Management Medication Management Patient/Family Education Providing Safe Environment Skin Integrity Transfers PATIENT REQUIRES INTENSIVE, COORDINATED INTERDISCIPLINARY APPROACH TO REHAB: Arranging Home Equipment/Services Discharge Planning Family Intervention/Training Cloth Piecer/Case Management PATIENT REHAB POTENTIAL: Expected level of measurable improvement will be of a practical value to patient's functional capacit y or adaptations to impairments Has a viable Discharge Plan Medically appropriate; condition is sufficiently stable to participate in intensive rehab program Patient is able and expected to receive 3 hours of individualized therapy daily on at least 5 of ever y 7 days Patient's prognosis for significant practical improvement within a reasonable period of time appears Good DISCHARGE PLAN: - Estimated Length of Stay (days) 14. - Consensus on plan Discharge plan has been discussed with primary caregiver. Patient/Family is in agreement with the torri n. Primary caregiver is in agreement with the plan. - Patient/Family Goals Return home with assistance. - Planned Living Setting Upon Discharge Home, to live with Family/Relatives. RECOMMENDED CARE LEVEL: IRF RECOMMENDATION DETAILS: Recommended Admission to Comprehensive Rehabilitation Program to Increase Functional [place] SCREENER'S COMPLETENESS CONFIRMATION: - Screening Confirmation The patient data collection on this preadmission screening form is finished PHYSICIANS REVIEW AND ADMISSION DETERMINATION Admit - Based on my review of the Pre-Admission Screening results, in my medical judgment and experie nce, I concur with the findings and recommend admission to [facility], as this patient requires an IRF level of care. SIGNATURE PANEL: Clinical Liaison - [electronically] signed by Lupe Mendez on 03/24/2018 at 13:17 (GROUND SERVICE EQUIPMENT MECHANIC) Clinical Liaison - [electronically] signed by Erlin Renee on 03/24/2018 at 13:22 (GROUND SERVICE EQUIPMENT MECHANIC) Physician Reviewer - [electronically] signed by Dr. Praful Triana M.D. on 03/24/2018 at 13:36 (GROUND SERVICE EQUIPMENT MECHANIC )
[2018-03-24] MEDS ORDERED: GLUCAGON 1 MG/VIAL IM PRN (14:09)
[2018-03-24] MEDS ORDERED: D50W 25 GM/50 ML SYRINGE IV PRN (14:09)
[2018-03-24 14:20] VITALS: BMI 24.2
[2018-03-24] MEDS ORDERED: MAGIC MOUTHWASH 180 ML BTL PO PRN (14:41)
[2018-03-24] MEDS ORDERED: FUROSEMIDE 40 MG TABLET ONE (17:08)
[2018-03-24] MEDS: INSULIN -REGULAR HUMAN 50 UNIT/0.5 ML ML SQ SCH ×2 (17:09→21:37)
[2018-03-24] MEDS: FUROSEMIDE 40 MG TABLET PO SCH (17:09)
[2018-03-24] MEDS: SUCRALFATE 1GM/10ML UCUP FT SCH ×2 (17:09→21:36)
[2018-03-24] MEDS ORDERED: DOCUSATE NA/SENNA CONC 1 TAB PO PRN (17:15)
[2018-03-24] MEDS ORDERED: SUCRALFATE 1GM/10ML UCUP ONE (17:16)
[2018-03-24] MEDS ORDERED: PNEUMOCOCCAL VACCINE 0.5 ML IMVAC ONE (18:30)
[2018-03-24] MEDS: HYDROCODONE/APAP 5/325 MG TAB PO PRN (19:26)
[2018-03-24] MEDS: GABAPENTIN 100 MG CAP PO SCH (19:27)
[2018-03-24] MEDS: FERROUS SULFATE 325 MG TAB PO SCH (19:27)
[2018-03-24] MEDS: Meropenem 500 MG in NA CHLORIDE 0.9% 100 ML IV SCH (19:28)
[2018-03-24] MEDS ORDERED: Meropenem 500 MG VIAL IV SCH (20:00)
[2018-03-24] MEDS: VANCOMYCIN/NS 1 gm 1 GM/250 ML BAG IVPB SCH (20:12)
[2018-03-24] MEDS: AMITRIPTYLINE 25 MG TAB PO SCH (21:37)
[2018-03-24 22:12] LABS: Urine Appearance CLEAR; Urine Bilirubin NEGATIVE (NEG); Urine Blood NEGATIVE (NEG); Urine Color YELLOW; Urine Glucose NEGATIVE (NEG); Urine Protein NEGATIVE (NEG); Urine Urobilinogen 0.2 mg/dL (0.2-1.0); Urine pH 7.5 (5.0-7.0)
[2018-03-24 22:32] LABS: Urine Bacteria <20 /HPF (<20); Urine Culture Reflex Order REFLEXED; Urine RBC <5 /HPF (NONE SEEN)
[2018-03-25] MEDS: HYDROCODONE/APAP 5/325 MG TAB PO PRN ×3 (02:55→20:38)
[2018-03-25] MEDS ORDERED: ALENDRONATE 70 MG TAB PO SCH (06:00)
[2018-03-25] MEDS: TRAMADOL HCL 50 MG TAB PO PRN ×2 (06:42→17:16)
[2018-03-25 06:43] LABS: Albumin 1.9 g/dL (3.4-5.0); Magnesium 2.3 mg/dL (1.8-2.4); Potassium 4.1 mmol/L (3.5-5.1); Prealbumin 7.5 mg/dL (20-40)
[2018-03-25 06:44] LABS: Absolute Lymphocytes (CBC) 0.7 K/uL (0.7-4.9); Absolute Monocytes 0.6 K/uL (0.1-1.3); Absolute Neutrophil 4.2 K/uL (1.8-8.0); Basophils % 0.4 % (0-1.3); Eosinophils % 6.8 % (0-4.4); Hematocrit 25.1 % (36.0-45.0); Lymphocytes % 11.3 % (15.3-44.8); MPV 8.1 fL (7.6-11.3); Monocytes % 10.9 % (3.3-12.3)
[2018-03-25] MEDS: INSULIN -REGULAR HUMAN 50 UNIT/0.5 ML ML SQ SCH ×4 (07:30→19:51)
[2018-03-25] MEDS: SUCRALFATE 1GM/10ML UCUP FT SCH ×4 (07:30→19:51)
[2018-03-25] MEDS: PANTOPRAZOLE 40MG TABLET PO SCH (08:20)
[2018-03-25] MEDS: FLUOXETINE 20 MG CAP PO SCH (08:20)
[2018-03-25] MEDS: FUROSEMIDE 40 MG TABLET PO SCH (08:20)
[2018-03-25] MEDS: FERROUS SULFATE 325 MG TAB PO SCH ×2 (08:21→19:49)
[2018-03-25] MEDS: GABAPENTIN 100 MG CAP PO SCH (08:21)
[2018-03-25] MEDS: MEDIHONEY 44 ML TOPICAL TUBE TOP SCH (08:21)
[2018-03-25] MEDS: MIDODRINE HCL 5 MG TABLET PO SCH (08:22)
[2018-03-25] MEDS: FLUCONAZOLE 100 MG TAB PO SCH (08:22)
[2018-03-25] MEDS: INSULIN GLARGINE 100 UNITS/ML SQ SCH (08:25)
[2018-03-25] MEDS: Meropenem 500 MG in NA CHLORIDE 0.9% 100 ML IV SCH ×2 (09:07→19:50)
--- NOTE | 2018-03-25 12:02 | R.HP ---
FACILITY: [facility] ENCOUNTER DATE AND TIME: 03/25/2018 11:56 (TELEPHONE ORDER CLERK ROOM SERVICE) MR#: [id number] NAME DEL JOSUE ADDRESS: [address] [place] [address]: [place] [id number] PHONE: DATE OF : 1975 AGE: 42 SSN# [id number] GENDER: Female DEXTERITY Right-handed MARITAL STATUS RACE PRE-HOSPITAL LIVING SETTING 01 - Home (private home/apt. board/care, assisted living, care home, transitional living) PRE-HOSPITAL LIVING WITH Family/Relatives ENCOUNTER PHYSICIAN: Dr. Praful Triana M.D. REFERRING DOCTOR: zara Morris DATE OF ADMISSION: 03/24/2018 14:02 (TELEPHONE ORDER CLERK ROOM SERVICE) REFERRING FACILITY [facility] HOME TYPE AND DETAILS: Type of home: single family house # of steps to enter the residence: 0 # of steps within the residence: 0 # of levels in the residence: 1 ADMISSION DIAGNOSIS: Right hip comminuted intertrochanteric and subtrochanteric femur fracture ONSET DATE: 03/04/2018 PRIMARY DIAGNOSIS-RELATED SURGERIES: Emergency Unilateral Hip Fracture - performed by Zara Morris on 03/04/2018 SECONDARY/COMORBID DIAGNOSES (TIERED): - N/A acute kidney injury DIABETIC NEUROPATHY bilateral lower leg cellulitis HISTORY OF PRESENT ILLNESS (HPI): Pt. is a 42 yo Right-handed female. On 03/04/2018 she was admitted to [facility] and underwent emergency surgery fo r Right hip comminuted intertrochanteric and subtrochanteric femur fracture (Unilateral Hip Fracture) by Zara Morris. Pre-morbidly, Pt. was independent/mod-I in Communication, Social Cognition, Self-Care, Sphincter Cont rol, Transfers Control, and Locomotion; and she had good Sphincter Control. Currently, she has deficits of Communication, Social Cognition, Balance, Endurance, Safety Awareness, Transfers Control, Locomotion, and Self-Care. Pt. is now referred to [facility] for acute in-patient rehabilitation in order to maximize patient's functional independence in activities of daily living, strength, ROM, and mobi lity. Patient has realistic goal of being discharged at assistance level 3-modA to reside at Home with Fam riaz/Relatives. MEDICATION ALLERGIES: acetaminophen PENICILLINS ENVIRONMENTAL ALLERGIES: - Substance Allergies None Known - Other Allergies None Known PAST MEDICAL HISTORY: DIABETIC NEUROPATHY acute kidney injury bilateral lower leg cellulitis FAMILY HISTORY: Family history is not contributory. SOCIAL HISTORY: - Home Living Family/Relatives REVIEW OF SYSTEMS: - Gen No Chills Fatigue No Fever - Eyes No Double Vision No itchiness - ENMT No Difficulty Swallowing - CVS No Chest Discomfort No Chest Pain Fatigue No Weight Gain - Resp No Cough No Shortness of Breath - GI Continent No Abdominal Pain No Constipation No Diarrhea - Continent No Kidney Pain No Painful Urination No Urinary Urgency - MSK No Joint Pain Muscle Cramps Stiffness - Skin No Itching No Rash No Suspicious Lesions - Neuro Coordination Difficulty No Difficulty with Concentration No Memory Loss No Seizures Weakness - Psych No Anxiety No Depression No HIV Exposure No Persistent Infections No Seasonal Allergies - Endo No Cold/Heat Intolerance No Excessive Hunger No Excessive Thirst No Excessive Urination PHYSICAL EXAM - Gen Alert and awake Lying in bed No apparent distress Oriented to: person, time, and place - Skin No breakdowns No abnormalities - Eyes No abnormalities - ENMT No abnormalities - Neck No abnormalities - CVS RRR - Chest No abnormalities - Resp Clear to auscultation - Abd + bowel sounds - GI Soft Deferred - No abnormalities - Ext Moderate edema in both lower extremities. - MSK 4+/5 weakness in both lower extremities. - Neuro No focal deficits - Psych No abnormalities VITAL SIGNS Temperature: 97.6 F SBP/DBP: 108/52 Pulse: 79 Resp: 16 NURSING: - Shower allowing shower - Skin care per protocol PRECAUTIONS: - Posterior Hip Precaution No adduction across midline No external rotation No hip flexion >90 degrees No internal rotation No wheel chair propulsion - Weight Bearing Precaution TTWB right LE ACTIVITIES OOB only with supervision FUNCTIONAL STATUS: - Self-Care A. Eating Ind Ind B. Grooming Ind Ind C. Bathing Ind Ind D. Dressing - Upper Ind sup E. Dressing - Lower Ind Ceasar F. Toileting Ind modA - Sphincter Control G: Bladder control Ind Ind H: Bowel control Ind Ind - Transfers Control I. Bed/Chair/Wheelchair Ind sup J. Toilet Ind Ceasar K. Tub/Shower Ind Ceasar - Locomotion L. Walk/Wheelchair (B) Ind modA M. Stairs Ind ADNO - Communication N. Comprehension (B) Ind sup O. Expression (B) Ind sup - Social Cognition P. Social Interaction Ind Ceasar Q. Problem Solving Ind sup R. Memory Ind Deven - Endurance Fair - Balance Fair - Safety Awareness Poor CURRENT FUNC. DEFICITS: Communication, Social Cognition, Balance, Endurance, Safety Awareness, Transfers Control, Locomotion, and Self-Care ASSESSMENT: Pt. is a 42 yo Right-handed female.On 03/04/2018 she was admitted to [facility] and underwent emergency surgery for Right hip comminuted intertrochanteric and subtrochante david femur fracture (Unilateral Hip Fracture) by Zara Morris.Pre-morbidly, Pt. was independent/mod- I in Communication, Social Cognition, Self-Care, Sphincter Control, Transfers Control, and Locomotion ; and she had good Sphincter Control.Currently, she has deficits of Communication, Social Cognition, Balance, Endurance, Safety Awareness, Transfers Control, Locomotion, and Self-Care.Pt. is now referre d to [facility] for acute in-patient rehabilitation in order to maximize patie nt's functional independence in activities of daily living, strength, ROM, and mobility.- Rehab Goal Patient has realistic goal of being discharged at assistance level 3-modA to reside at Home with Fam riaz/Relatives. REHAB PLAN: - Physical Therapy Decreased range of motion - to improve, our physical therapists will perform initial evaluation of pt 's status upon admission and devise an individualized program for increasing patient's Range of Motio n. Gait dysfunction - to improve, our physical therapists will perform initial evaluation of pt's status upon admission and devise an individualized program for Gait Training, and Wheel Chair mobility Inability to transfer - to improve, our physical therapists will perform initial evaluation of pt's s tatus upon admission and devise an individualized program for Bed mobility Need for home safety evaluation - to improve, our physical therapists will perform initial evaluation of pt's status upon admission and devise an individualized program for Home Evaluation Need in caregiver upon discharge - to improve, our physical therapists will perform initial evaluatio n of pt's status upon admission and devise an individualized program for Caregiver Training New precaution - to improve, our physical therapists will perform initial evaluation of pt's status u boris admission and devise an individualized program for Patient precaution education Edema - to improve, our physical therapists will perform initial evaluation of pt's status upon admi ssion and devise an individualized program for Elevation Training, and Lymphedema Therapy Poor balance - to improve, our physical therapists will perform initial evaluation of pt's status upo n admission and devise an individualized program for Balance Training Poor endurance - to improve, our physical therapists will perform initial evaluation of pt's status u boris admission and devise an individualized program for Endurance Training Weakness - to improve, our physical therapists will perform initial evaluation of pt's status upon ad mission and devise an individualized program for Aquatic Therapy, Neuromuscular Reeducation, and Stre ngthening Achieving independence - to improve, our physical therapists will perform initial evaluation of pt's status upon admission and devise an individualized program for Community Reintegration Activities - Occupational Therapy ADL deficits - to improve, our occupation therapists will perform initial evaluation of pt's status u boris admission and devise an individualized program for Bathing, Bed mobility, Community Reintegration , Cooking, Dressing, Eating, Fine Motor Skills, Grooming, Homemaking, Kitchen Mobility, Laundry, Janae ent Education, Safety Awareness, Splinting - Positioning, Transfers(Toilet, Tub, Shower), and Wheel C hair Management Cognitive deficits - to improve, our occupation therapists will perform initial evaluation of pt's st atus upon admission and devise an individualized program for Cognition - orientation Need for healthcare corporate account director - to improve, our occupation therapists will perform initial evaluation of pt's s tatus upon admission and devise an individualized program for Caregiver Training Weakness - to improve, our occupation therapists will perform initial evaluation of pt's status upon admission and devise an individualized program for Aquatic Therapy, Balance, Endurance, UE ROM, and U E strengthening MEDICAL PLAN: - Anterior Hip Precaution No abduction No active extension No adduction across midline No external rotation No hip flexion >90 degrees No internal rotation - Diet - Liquid Texture Start Regular - Tube Feed Start N/A - Diet Type Start Regular - Posterior Hip Precaution No adduction across midline No external rotation No hip flexion >90 degrees No internal rotation No wheel chair propulsion - Weight Bearing Precaution TTWB right LE - Skin care per protocol - Diet - Solid Texture Regular - Shower shower DISCHARGE PLAN: - Estimated Length of Stay (days) 14. - Consensus on plan Discharge plan has been discussed with primary caregiver. Patient/Family is in agreement with the torri n. Primary caregiver is in agreement with the plan. - Patient/Family Goals Return home with assistance. - Planned Living Setting Upon Discharge Home, to live with Family/Relatives. SIGNATURE PANEL: (TELEPHONE ORDER CLERK ROOM SERVICE)
--- NOTE | 2018-03-25 12:04 | PAPE ---
PATIENT: [facility] MR# [id number] REFERRING DOCTOR obi Morris EVALUATION DATE AND TIME 03/25/2018 12:02 (SINGING TEACHER) NAME DEL JOSUE DATE OF 1975 AGE 42 PHONE N# [id number] GENDER female EVALUATING PHYSICIAN Dr. Praful Triana M.D. ADMISSION DIAGNOSIS: Right hip comminuted intertrochanteric and subtrochanteric femur fracture ONSET DATE 03/04/2018 SECONDARY/COMORBID DIAGNOSES TIERED: - N/A acute kidney injury DIABETIC NEUROPATHY bilateral lower leg cellulitis POST-ADMISSION FUNCTIONAL/MEDICAL STATUS: - Bladder Same accident frequency: Ind - No accidents in the past 7 days - Bowel Same accident frequency: Ind - No accidents in the past 7 days - Walking Same score based on distance walked: 2([id number]) STATUS CHANGE EVALUATION: No change in Functional or Medical Status is identified compared with Pre-Admission screening. PATIENT NEEDS CLOSE MEDICAL SUPERVISION BY A REHABILITATION PHYSICIAN FOR: Bowel and Bladder Management Coordination of Treatment Team Medical and Co-Morbidity Management Post-Op Complications Wound Care PATIENT REQUIRES 24X7 REHAB NURSING FOR MEDICAL AND FUNCTIONAL MGT. OF THE FOLLOWING DEFICITS: ADL's Ambulation Bowel and Bladder Management Cognition Communication Disease Management Medication Management Patient/Family Education Providing Safe Environment Skin Integrity Transfers PATIENT REQUIRES INTENSIVE, COORDINATED INTERDISCIPLINARY APPROACH TO REHAB: Arranging Home Equipment/Services Discharge Planning Family Intervention/Training Meat Manager/Case Management LIST OF IDENTIFIED AND POTENTIAL PROBLEMS: Alteration in leisure activities Bladder, Incontinence Bowel, Incontinence Infection, Actual or Potential Mobility Impaired Pain, Alteration in Comfort Self Care Deficit Skin Integrity, Actual or Potential Urinary Tract Infection (UTI), Actual or Potential PATIENT COULD BE AT RISK FOR COMPLICATIONS FROM ADVERSE MEDICAL CONDITIONS DUE TO HIS/HER COMORBIDITI ES AND THE RIGORS OF THE INTENSIVE REHABILLITATION PROGRAM. METHODS OR INTERVENTIONS TO AVOID COMPLIC ATIONS INCLUDE: - Bleeding Assess lab values and manage abnormalities. Nursing to teach precautions for anti-coagulation therapy . Wound to be assessed every shift. - Infection Clinical staff to assess and manage the signs and symptoms of infection including fever, redness, war mth, etc. - Urinary Tract Infection - Falls Patient will be evaluated for Fall Precautions and will be placed on Fall Precautions as indicated pe r protocol. - Skin Breakdown Nursing will assess skin daily using assessment tool and will place on Skin Breakdown Precautions as indicated per protocol. - Pain Clinical staff may employ non-medication methods such as massage, distraction, decrease stimulus, etc . as needed. Clinical staff will assess patient's pain level every shift per protocol to assess and e nsure pain management effectiveness. Medications will be given and the pain level re-assessed. PRELIMINARY PLAN OF CARE: - Physical Therapy Patient needs Physical Therapy for a daily minimum of 1.5 hours at least 5 out of 7 days, to improve: Mobility, Strengthening, Transfers, Stretching, ROM, Endurance, Ability to manage stairs, Gait, and Balance. - Rehabilitation Nursing Patient requires 24x7 Rehabilitation Nursing for: Pain Issues, Identifying and preventing risk factor s, Monitoring and reporting current medical conditions, Assisting with ambulation and transfer, Yoana ting with all ADL-s, Teaching patients about disease process and medications, Family teaching, Provid ing safe environment, Bowel and Bladder Issues, Skin Integrity, and Medication Management. Patient needs Meat Manager and/or Case Management for: Discharge Planning, Arranging Home Equipmen t or Services, and Family Interventions. - Dietary and Nutrition Services Patient needs Dietary and Nutrition Services for: Adequate Nutrition, Nutritional Supplements, and Nu tritional Education. - Occupational Therapy Patient needs Occupational Therapy for a daily minimum of 1.5 hours at least 5 out of 7 days, to impr ove Activities of Daily Living, including: Eating, Grooming, Bathing, Dressing, Toileting, Toilet Tra nsfers, Community Reintegration, Higher functional activities, Adaptive Equipment, Splinting, Househo ld Tasks, and Other activities as determined. POTENTIAL FUNCTIONAL GOALS FOR PATIENT TO ACHIEVE BY DISCHARGE: - Safety Precaution Patient will remain free from falls or injury at time of discharge. - Bed Mobility Patient will perform bed mobility at 4-Ceasar level of assistance. - Transfers Patient will complete transfers from bed to chair at 4-Ceasar level of assistance. - Mobility Patient will ambulate 150 ft with 4-Ceasar level of assistance with RW. PATIENT REHAB POTENTIAL Expected level of measurable improvement will be of a practical value to patient's functional capacit y or adaptations to impairments Has a viable Discharge Plan Medically appropriate; condition is sufficiently stable to participate in intensive rehab program Patient is able and expected to receive 3 hours of individualized therapy daily on at least 5 of ever y 7 days Patient's prognosis for significant practical improvement within a reasonable period of time appears Good DISCHARGE PLAN: - Estimated Length of Stay (days) 14. - Consensus on plan Discharge plan has been discussed with primary caregiver. Patient/Family is in agreement with the torri n. Primary caregiver is in agreement with the plan. - Patient/Family Goals Return home with assistance. - Planned Living Setting Upon Discharge Home, to live with Family/Relatives. CONCLUSION ON REHABILITATION NECESSITY: I have evaluated patient's pre-admission functional status and, comparing it to the patient's post-ad mission functional status now, I conclude that the pre-admission assessment was accurate. Patient's c ondition on admission supports the medical necessity of admission to IRF. It is safe to proceed with patient's therapy program. SIGNATURE PANEL: (SINGING TEACHER)
--- NOTE | 2018-03-25 14:21 | P.CNS ---
Date of Consult: 03/25/18 Reason for Consult: Medical Mgm Chief Complaint: Rehab post Hip fracture History of Present Illness: This is a 42-year-old female with significant past medical history who has an extensive stay in the acute care setting for osteomyelitis of her bilateral feet and her right hip fracture after having a fall in the hospital. Once medically cleared at the acute care setting patient was transferred over to inpatient rehab for physical therapy and occupational therapy rehab and IV antibiotics total of 6 weeks. Patient has been doing fairly well overall without any complaints or complications. Allergies acetaminophen [From Tylenol] Allergy (Verified 03/24/18 17:25) Nausea/Vomiting Penicillins Allergy (Verified 03/24/18 17:25) Nausea/Vomiting Home Medications: Amitriptyline [Elavil*] 25 mg PO BEDTIME 02/02/18 Fluoxetine HCl [Prozac] 40 mg PO DAILY 02/02/18 Pantoprazole [Protonix Tab*] 40 mg PO [id number] 02/02/18 Gabapentin [Neurontin*] 100 mg PO BID #60 cap 02/06/18 Alendronate Sodium [Fosamax] 70 mg PO EVERY 7TH DAY 02/23/18 Insulin Glargine,Hum.rec.anlog [Toujeo Solostar] 25 units SQ DAILY 02/23/18 Iron 325 mg PO BID 02/23/18 - Past Medical/Surgical History Diabetic: Yes -: Diabetes mellitus type 2, insulin dependent -: Tobacco abuse -: Diabetic neuropathy -: Depression -: Insomnia -: neuropathy -: cirrhosis -: Acute Kidney Injury -: Thrombocytopenia -: Pulmonary Edema -: Bilateral lower leg cellulitis -: Bilateral Osteomyelitis -: Cholecystectomy -: Right hip surgery Psychosocial/ Personal History: Patient is . She has 5 children. 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 - Family History Mother Medical History: Heart disease, Diabetes - Social History Smoking Status: Unknown if ever smoked Alcohol use: Yes CD- Drugs: No Caffeine use: Yes Place of Residence: Home Review of Systems 10-point ROS is otherwise unremarkable Physical Examination Temp Pulse Resp BP Pulse Ox 96.9 F 78 18 117/59 L 97 03/25/18 08:00 03/25/18 08:20 03/25/18 08:00 03/25/18 08:20 03/25/18 08:00 General: Alert, In no apparent distress HEENT: Atraumatic, PERRLA, Mucous membr. moist/pink, EOMI, Sclerae nonicteric Neck: Supple, 2+ carotid pulse no bruit, No LAD, Without JVD or thyroid abnormality Respiratory: Clear to auscultation bilaterally, Normal air movement Cardiovascular: Regular rate/rhythm, Normal S1 S2 Gastrointestinal: Normal bowel sounds, No tenderness Musculoskeletal: No tenderness Integumentary: No rashes Neurological: Normal gait, Normal speech, Normal tone, Normal affect Lymphatics: No axilla or inguinal lymphadenopathy Laboratory Data (last 24 hrs) 03/25/18 05:15: Sodium 138, Potassium 4.1, BUN 29 H, Creatinine 1.71 H, Glucose 108 H, Magnesium 2.3 03/25/18 05:15: WBC 6.0, Hgb 8.4 L, Hct 25.1 L, Plt Count 122 L - Problems (1) Bilateral lower leg cellulitis Onset Date: 02/25/18 Current Visit: No Status: Acute Plan: Bilateral cellulitis to the lower extremity with noted moderate osteomyelitis to the base of the proximal right phalanx on the 5th toe, medial aspect of the 5th metatarsal head, and the majority of the 4th metatarsal head along with moderate osteomyelitis with underlying fracture of the left proximal phalanx of the 5th toe. (2) Fall Current Visit: No Status: Acute Plan: Patient's hospital course was complicated by fall during hospital stay which led to a right femoral fracture. Patient was seen and evaluated by Orthopedics. Patient had open reduction internal fixation. Patient tolerated the procedure well and no complications were noted from that. Qualifiers: Encounter type: subsequent encounter Qualified Code(s): W19.XXXD - Unspecified fall, subsequent encounter (3) Right femoral fracture Current Visit: No Status: Acute Qualifiers: Encounter type: subsequent encounter Femur location: unspecified portion of femur Fracture type: closed Fracture morphology: unspecified fracture morphology Fracture healing: with routine healing Qualified Code(s): S72.91XD - Unspecified fracture of right femur, subsequent encounter for closed fracture with routine healing (4) Thrombocytopenia Onset Date: 02/25/18 Current Visit: No Status: Chronic (5) Tobacco abuse counseling Current Visit: No Status: Chronic (6) Cirrhosis Onset Date: 01/15/17 Current Visit: No Status: Chronic Qualifiers: Hepatic cirrhosis type: alcoholic cirrhosis Ascites presence: without ascites Qualified Code(s): K70.30 - Alcoholic cirrhosis of liver without ascites (7) Diabetes mellitus, type II Onset Date: 02/04/18 Current Visit: No Status: Chronic Qualifiers: Diabetes mellitus half-way insulin use: without half-way use Diabetes mellitus complication status: without complication Qualified Code(s): E11.9 - Type 2 diabetes mellitus without complications Conclusions/Impression: Patient now admitted to inpatient rehab after being referred over for continuous care from acute care setting. Patient is to continue working with physical therapy occupational therapy and speech therapy while here in the hospital. Today is doing well overall no complaints to offer. Is working with physical therapy and occupational therapy and advancing fairly. Patient is also to continue her antibiotics here in the hospital. Patient is currently on day 29 of total of 42 days. Will continue to monitor patient closely in inpatient rehab Critical Care: No
--- NOTE | 2018-03-25 15:10 | FAST ---
SHIFT START DATE/TIME: 03/25/2018 07:00 (SOLUTIONS SALES CONSULTANT) SHIFT END DATE/TIME: 03/25/2018 19:00 (SOLUTIONS SALES CONSULTANT) NAME DEL JOSUE DATE OF : 1975 DATE OF ADMISSION: 03/24/2018 14:02 (SOLUTIONS SALES CONSULTANT) PHONE: AGE: 42 N# [id number] GENDER: Female ENCOUNTER PHYSICIAN: Dr. Praful Triana M.D. ADMISSION DIAGNOSIS: - Orthopaedic Disorders 08 - Unilateral Hip Fracture (08.11) Right hip comminuted intertrochanteric and subtrochanteric femur fracture. EATING: EATING - STEP 1: Does the patient require the assistance of a person or device, or need extra time when eating? Yes. EATING - STEP 2: Does the patient require the assistance of a helper? No, patient only requires an assistive device, O R s/he takes more than reasonable time to eat, OR there is a safety concern, OR s/he requires modifie d food consistency EATING - SCORE: 6-KENZIE GROOMING: GROOMING - STEP 1: Does the patient require the assistance of a person or device, or need extra time when grooming? Yes. GROOMING - STEP 2: Does the patient require the assistance of a helper? No. The patient only requires an assistive devic e, OR takes more than reasonable time to groom, OR there is a concern for safety as the patient groom s GROOMING - SCORE: 6-KENZIE BATHING: Activity did not occur on this shift BATHING - SCORE: 0-UNK DRESSING - UPPER BODY: Activity did not occur on this shift ARTICLES SCORE Total number of steps: 0 DRESSING - UPPER BODY - SCORE: 0-UNK DRESSING - LOWER BODY: Activity did not occur on this shift ARTICLES SCORE Total number of steps: 0 DRESSING - LOWER BODY - SCORE: 0-UNK TOILETING: TOILETING - STEP 1: Does the patient require the assistance of a person or device, or need extra time with toileting? Yes . TOILETING - STEP 2: Does the patient require the assistance of a helper? Yes. TOILETING - STEP 3: How much assistance does the patient require from the helper? Hands-on assistance from the helper TOILETING - STEP 4: Of the 3 tasks: 1) Adjusting clothing prior to use, 2) Cleansing of perineal area, 3) Adjusting clot doug after use; How many tasks does the patient perform WITHOUT assistance of the helper? Three tasks with steadying assistance from the helper TOILETING - SCORE: 4-MIN BLADDER MANAGEMENT: BLADDER MANAGEMENT - STEP 1: Does the patient control the bladder completely and intentionally without equipment or devices or med ications, and is always continent? Yes. BLADDER MANAGEMENT - SCORE: 7-IND BOWEL MANAGEMENT: Activity did not occur on this shift BOWEL MANAGEMENT - SCORE: 7-IND TRANSFERS: BED, CHAIR, WHEELCHAIR: TRANSFERS: BED, CHAIR, WHEELCHAIR - STEP 1: Does the patient require assistance of a person or device, or need extra time with bed, chair, or whe elchair transfers? Yes. TRANSFERS: BED, CHAIR, WHEELCHAIR - STEP 2: Does the patient require the assistance of a helper? Yes. TRANSFERS: BED, CHAIR, WHEELCHAIR - STEP 3: How much assistance does the patient require from the helper? Steadying/guiding assistance TRANSFERS: BED, CHAIR, WHEELCHAIR - SCORE: 4-MIN TRANSFERS: TOILET: TRANSFERS: TOILET - STEP 1: Does the patient require the assistance of a person or device, or need extra time with toilet transfe rs? Yes. TRANSFERS: TOILET - STEP 2: Does the patient require the assistance of a helper? Yes. TRANSFERS: TOILET - STEP 3: How much assistance does the patient require from the helper? Patient performs half or more of the tr ansferring tasks TRANSFERS: TOILET - STEP 4: Does the patient need only incidental help such as contact guard or steadying during toilet transfer? Yes. TRANSFERS: TOILET - SCORE: 4-MIN TRANSFERS: SHOWER: Activity did not occur on this shift TRANSFERS: SHOWER - SCORE: 0-UNK TRANSFERS: TUB: Activity did not occur on this shift TRANSFERS: TUB - SCORE: 0-UNK LOCOMOTION: WALK: Activity did not occur on this shift LOCOMOTION: WALK - SCORE: 0-UNK LOCOMOTION: WHEELCHAIR: Activity did not occur on this shift LOCOMOTION: WHEELCHAIR - SCORE: 0-UNK COMPREHENSION: COMPREHENSION: TYPE: Both COMPREHENSION - STEP 1: Does the patient require help from a person or device, or need extra time to understand complex and a bstract ideas (such as current events, finances, discharge planning, medical issues, relationships, e tc)? No. COMPREHENSION - STEP 2: Does the patient need extra time, require an assistive device (such as glasses for visual comprehensi on or a hearing aid for auditory comprehension) or does s/he have mild difficulty understanding compl ex and abstract information? Yes. COMPREHENSION - SCORE: 6-KENZIE EXPRESSION EXPRESSION: TYPE: Both EXPRESSION - STEP 1: Does the patient require help from a person or device, or need extra time expressing complex and abst ract ideas (such as current events, finances, discharge planning, medical issues, relationships, etc) ? No. EXPRESSION - STEP 2: Does the patient need extra time, require an assistive device (such as augmentive communication syste m or a communication board), OR does s/he have mild difficulty expressing complex and abstract ideas (including mild dysarthria or mild word-find problems)? Yes. EXPRESSION - SCORE: 6-KENZIE SOCIAL INTERACTION: SOCIAL INTERACTION - STEP 1: Does the patient require a helper to interact with others in social and therapeutic situations? No. SOCIAL INTERACTION - STEP 2: Does the patient need extra time in social situations, OR does s/he interact with staff, other patien ts, and family members ONLY in structured environments, OR does s/he require medication for social in teraction? Yes, patient needs extra time SOCIAL INTERACTION - SCORE: 6-KENZIE PROBLEM SOLVING: PROBLEM SOLVING - STEP 1: Does the patient need help from a person or device, or need extra time to solve complex problems such as managing a checking account or confronting interpersonal problems? No. PROBLEM SOLVING - STEP 2: Does the patient require extra time to make decisions or solve problems, OR does s/he have slight dif ficulty reading, initiating, or self-correcting in unfamiliar situations? Yes, patient needs extra ti me. PROBLEM SOLVING - SCORE: 6-KENZIE MEMORY: MEMORY - STEP 1: Does the patient need help from a person or device, or need extra time to remember frequently encount ered people, daily routines, and executing requests? No. MEMORY - STEP 2: Does the patient have slight difficulty recognizing frequently encountered people, daily routines, or executing requests without the need for repetition or using self-initiated or environmental cues to remember? Yes. MEMORY - SCORE: 6-KENZIE SIGNATURE PANEL: The following modified sections: Eating - Score, Grooming - Score, Bathing - Score, Dressing - Upper Body - Score, Dressing - Lower Body - Score, Toileting - Score, Bladder Management - Score, Bowel Man agement - Score, Transfers: Bed, Chair, Wheelchair - Score, Transfers: Toilet - Score, Transfers: Radha wer - Score, Transfers: Tub - Score, Locomotion: Walk - Score, Locomotion: Wheelchair - Score, Compre hension - Score, Expression - Score, Social Interaction - Score, Problem Solving - Score, Memory - Sc ore were [electronically] signed by Adonis Davidson on SunMar 25 2018 15:08:50 GMT-0600 (Central Standard Time)
--- NOTE | 2018-03-25 15:20 | FAST ---
ENCOUNTER DATE AND TIME: 03/25/2018 08:00 (PUBLIC EMPLOYMENT MEDIATOR) NAME DEL JOSUE DATE OF : 1975 DATE OF ADMISSION: 03/24/2018 14:02 (PUBLIC EMPLOYMENT MEDIATOR) PHONE: AGE: 42 SSN# [id number] GENDER: Female ENCOUNTER PHYSICIAN: Dr. Praful Triana M.D. ADMISSION DIAGNOSIS: - Orthopaedic Disorders 08 - Unilateral Hip Fracture (08.11) Right hip comminuted intertrochanteric and subtrochanteric femur fracture. EATING: Activity did not occur on this shift EATING - SCORE: 0-UNK GROOMING: Activity did not occur on this shift GROOMING - SCORE: 0-UNK BATHING: Activity did not occur on this shift BATHING - SCORE: 0-UNK DRESSING - UPPER BODY: Activity did not occur on this shift Patient is not dressing in public clothing ARTICLES SCORE Total number of steps: 0 DRESSING - UPPER BODY - SCORE: 0-UNK DRESSING - LOWER BODY: Activity did not occur on this shift Patient is not dressing in public clothing ARTICLES SCORE Total number of steps: 0 DRESSING - LOWER BODY - SCORE: 0-UNK TOILETING: Activity did not occur on this shift TOILETING - SCORE: 0-UNK BLADDER MANAGEMENT: Activity did not occur on this shift BLADDER MANAGEMENT - SCORE: 7-IND BOWEL MANAGEMENT: Activity did not occur on this shift BOWEL MANAGEMENT - SCORE: 7-IND TRANSFERS: BED, CHAIR, WHEELCHAIR: TRANSFERS: BED, CHAIR, WHEELCHAIR - STEP 1: Does the patient require assistance of a person or device, or need extra time with bed, chair, or whe elchair transfers? Yes. TRANSFERS: BED, CHAIR, WHEELCHAIR - STEP 2: Does the patient require the assistance of a helper? Yes. TRANSFERS: BED, CHAIR, WHEELCHAIR - STEP 3: How much assistance does the patient require from the helper? Only supervision TRANSFERS: BED, CHAIR, WHEELCHAIR - SCORE: 5-SUP TRANSFERS: TOILET: Activity did not occur on this shift TRANSFERS: TOILET - SCORE: 0-UNK TRANSFERS: SHOWER: Activity did not occur on this shift TRANSFERS: SHOWER - SCORE: 0-UNK TRANSFERS: TUB: Activity did not occur on this shift TRANSFERS: TUB - SCORE: 0-UNK LOCOMOTION: WALK: LOCOMOTION: WALK - STEP 1: Does the patient need help from a person or device, or need extra time to walk 150 feet? Yes. LOCOMOTION: WALK - STEP 2: How much assistance does the patient require to walk a minimum of 150 feet? Only supervision, cuing, or coaxing LOCOMOTION: WALK - SCORE: 5-SUP LOCOMOTION: WHEELCHAIR: LOCOMOTION: WHEELCHAIR - STEP 1: Does the patient need help to go 150 feet in a wheelchair? Yes. LOCOMOTION: WHEELCHAIR - STEP 2: How much assistance does the patient need from the helper? Only supervision, cuing, or coaxing LOCOMOTION: WHEELCHAIR - SCORE: 5-SUP LOCOMOTION: STAIRS: Activity did not occur on this shift LOCOMOTION: STAIRS - SCORE: 0-UNK COMPREHENSION: COMPREHENSION - SCORE: 0-UNK EXPRESSION EXPRESSION - SCORE: 0-UNK SOCIAL INTERACTION: SOCIAL INTERACTION - SCORE: 0-UNK PROBLEM SOLVING: PROBLEM SOLVING - SCORE: 0-UNK MEMORY: MEMORY - SCORE: 0-UNK SIGNATURE PANEL: The following modified sections: Transfers: Bed, Chair, Wheelchair - Score, Transfers: Toilet - Score , Locomotion: Walk - Score, Locomotion: Wheelchair - Score, Locomotion: Stairs - Score were [cyndi jay] signed by Evelio Martínez PTA on SunMar 25 2018 15:19:22 GMT-0600 (Central Standard Time)
[2018-03-25] MEDS: FUROSEMIDE 20 MG TABLET PO SCH (17:17)
[2018-03-25] MEDS: PROMOD 30 ML DOSE PO SCH (19:50)
[2018-03-25] MEDS: GABAPENTIN 300 MG CAP PO SCH (19:50)
[2018-03-25] MEDS: AMITRIPTYLINE 25 MG TAB PO SCH (19:50)
[2018-03-26] MEDS: SUCRALFATE 1GM/10ML UCUP FT SCH ×4 (07:20→21:24)
[2018-03-26] MEDS: INSULIN -REGULAR HUMAN 50 UNIT/0.5 ML ML SQ SCH ×4 (07:30→20:21)
[2018-03-26] MEDS: Meropenem 500 MG in NA CHLORIDE 0.9% 100 ML IV SCH ×2 (07:34→19:10)
[2018-03-26] MEDS: INSULIN GLARGINE 100 UNITS/ML SQ SCH (07:53)
[2018-03-26] MEDS: FERROUS SULFATE 325 MG TAB PO SCH ×2 (07:54→19:10)
[2018-03-26] MEDS: FUROSEMIDE 20 MG TABLET PO SCH ×2 (07:54→17:00)
[2018-03-26] MEDS: FE SULF/FA/VIT B COMP & C TAB PO SCH (07:54)
[2018-03-26] MEDS: FLUOXETINE 20 MG CAP PO SCH (07:54)
[2018-03-26] MEDS: PANTOPRAZOLE 40MG TABLET PO SCH (07:54)
[2018-03-26] MEDS: GABAPENTIN 300 MG CAP PO SCH ×2 (07:54→19:11)
[2018-03-26] MEDS: MIDODRINE HCL 5 MG TABLET PO SCH (07:55)
[2018-03-26] MEDS: FLUCONAZOLE 100 MG TAB PO SCH (07:55)
[2018-03-26] MEDS: TRAMADOL HCL 50 MG TAB PO PRN (07:55)
[2018-03-26] MEDS: MEDIHONEY 44 ML TOPICAL TUBE TOP SCH (07:56)
[2018-03-26] MEDS: PROMOD 30 ML DOSE PO SCH ×3 (07:56→19:13)
--- NOTE | 2018-03-26 12:15 | P.PN ---
Subjective Date of Service: 03/26/18 Chief Complaint: Rehab post Hip fracture Subjective: Tolerating diet, Ambulating, Improving, Working w/ PT, Doing well Going out of inpatient Rehab for Xmas today and will be back. Review of Systems 10-point ROS is otherwise unremarkable Physical Examination - Vital Signs Temperature: 97.6 F Blood Pressure: 118/74 Pulse: 73 Respirations: 18 Pulse Ox (%): 98 - Physical Exam General: Alert, In no apparent distress HEENT: Atraumatic, PERRLA, EOMI Neck: Supple, JVD not distended Respiratory: Clear to auscultation bilaterally, Normal air movement Cardiovascular: Regular rate/rhythm, Normal S1 S2 Gastrointestinal: Normal bowel sounds, No tenderness Musculoskeletal: No tenderness Integumentary: No rashes Neurological: Normal speech, Normal tone, Normal affect Lymphatics: No axilla or inguinal lymphadenopathy - Studies Microbiology Data (last 24 hrs): 03/24/18 21:55 Clean Catch Urine Lillian Count - Final 03/24/18 21:55 Clean Catch Urine - Final No growth. Medications List Reviewed: Yes Assessment And Plan - Current Problems (Diagnosis) (1) Bilateral lower leg cellulitis Onset Date: 02/25/18 Current Visit: No Status: Acute Plan: Bilateral cellulitis to the lower extremity with noted moderate osteomyelitis to the base of the proximal right phalanx on the 5th toe, medial aspect of the 5th metatarsal head, and the majority of the 4th metatarsal head along with moderate osteomyelitis with underlying fracture of the left proximal phalanx of the 5th toe. (2) Fall Current Visit: No Status: Acute Plan: Patient's hospital course was complicated by fall during hospital stay which led to a right femoral fracture. Patient was seen and evaluated by Orthopedics. Patient had open reduction internal fixation. Patient tolerated the procedure well and no complications were noted from that. Qualifiers: Encounter type: subsequent encounter Qualified Code(s): W19.XXXD - Unspecified fall, subsequent encounter (3) Right femoral fracture Current Visit: No Status: Acute Qualifiers: Encounter type: subsequent encounter Femur location: unspecified portion of femur Fracture type: closed Fracture morphology: unspecified fracture morphology Fracture healing: with routine healing Qualified Code(s): S72.91XD - Unspecified fracture of right femur, subsequent encounter for closed fracture with routine healing (4) Thrombocytopenia Onset Date: 02/25/18 Current Visit: No Status: Chronic (5) Tobacco abuse counseling Current Visit: No Status: Chronic (6) Cirrhosis Onset Date: 01/15/17 Current Visit: No Status: Chronic Qualifiers: Hepatic cirrhosis type: alcoholic cirrhosis Ascites presence: without ascites Qualified Code(s): K70.30 - Alcoholic cirrhosis of liver without ascites (7) Diabetes mellitus, type II Onset Date: 02/04/18 Current Visit: No Status: Chronic Qualifiers: Diabetes mellitus nursing home insulin use: without nursing home use Diabetes mellitus complication status: without complication Qualified Code(s): E11.9 - Type 2 diabetes mellitus without complications - Plan Patient now admitted to inpatient rehab after being referred over for continuous care from acute care setting. Patient is to continue working with physical therapy occupational therapy and speech therapy while here in the hospital. Today is doing well overall no complaints to offer. Is working with physical therapy and occupational therapy and advancing fairly. Patient is also to continue her antibiotics here in the hospital. Patient is currently on day 30 of total of 42 days. Will continue to monitor patient closely in inpatient rehab Discharge Plan: Other Plan to discharge in: Unknown - Code Status/Comfort Care Code Status Assessed: Yes Critical Care: No
--- NOTE | 2018-03-26 14:26 | FAST ---
SHIFT START DATE/TIME: 03/26/2018 07:00 (LIQUOR CLERK) SHIFT END DATE/TIME: 03/26/2018 19:00 (LIQUOR CLERK) NAME DEL JOSUE DATE OF : 1975 DATE OF ADMISSION: 03/24/2018 14:02 (LIQUOR CLERK) PHONE: AGE: 42 N# [id number] GENDER: Female ENCOUNTER PHYSICIAN: Dr. Praful Triana M.D. ADMISSION DIAGNOSIS: - Orthopaedic Disorders 08 - Unilateral Hip Fracture (08.11) Right hip comminuted intertrochanteric and subtrochanteric femur fracture. EATING: EATING - STEP 1: Does the patient require the assistance of a person or device, or need extra time when eating? No. EATING - SCORE: 7-IND GROOMING: Activity did not occur on this shift GROOMING - SCORE: 0-UNK BATHING: Activity did not occur on this shift BATHING - SCORE: 0-UNK DRESSING - UPPER BODY: Activity did not occur on this shift ARTICLES SCORE Total number of steps: 0 DRESSING - UPPER BODY - SCORE: 0-UNK DRESSING - LOWER BODY: Activity did not occur on this shift ARTICLES SCORE Total number of steps: 0 DRESSING - LOWER BODY - SCORE: 0-UNK TOILETING: TOILETING - STEP 1: Does the patient require the assistance of a person or device, or need extra time with toileting? Yes . TOILETING - STEP 2: Does the patient require the assistance of a helper? Yes. TOILETING - STEP 3: How much assistance does the patient require from the helper? Only supervision TOILETING - SCORE: 5-SUP BLADDER MANAGEMENT: BLADDER MANAGEMENT - STEP 1: Does the patient control the bladder completely and intentionally without equipment or devices or med ications, and is always continent? Yes. BLADDER MANAGEMENT - SCORE: 7-IND BOWEL MANAGEMENT: Activity did not occur on this shift BOWEL MANAGEMENT - SCORE: 7-IND TRANSFERS: BED, CHAIR, WHEELCHAIR: TRANSFERS: BED, CHAIR, WHEELCHAIR - STEP 1: Does the patient require assistance of a person or device, or need extra time with bed, chair, or whe elchair transfers? Yes. TRANSFERS: BED, CHAIR, WHEELCHAIR - STEP 2: Does the patient require the assistance of a helper? Yes. TRANSFERS: BED, CHAIR, WHEELCHAIR - STEP 3: How much assistance does the patient require from the helper? Only supervision TRANSFERS: BED, CHAIR, WHEELCHAIR - SCORE: 5-SUP TRANSFERS: TOILET: TRANSFERS: TOILET - STEP 1: Does the patient require the assistance of a person or device, or need extra time with toilet transfe rs? Yes. TRANSFERS: TOILET - STEP 2: Does the patient require the assistance of a helper? Yes. TRANSFERS: TOILET - STEP 3: How much assistance does the patient require from the helper? Only supervision, cuing, coaxing, OR he lp to set out transfer equipment or to lock brakes and/or lift foot rests TRANSFERS: TOILET - SCORE: 5-SUP TRANSFERS: SHOWER: Activity did not occur on this shift TRANSFERS: SHOWER - SCORE: 0-UNK TRANSFERS: TUB: Activity did not occur on this shift TRANSFERS: TUB - SCORE: 0-UNK LOCOMOTION: WALK: Activity did not occur on this shift LOCOMOTION: WALK - SCORE: 0-UNK LOCOMOTION: WHEELCHAIR: Activity did not occur on this shift LOCOMOTION: WHEELCHAIR - SCORE: 0-UNK COMPREHENSION: COMPREHENSION: TYPE: Both COMPREHENSION - STEP 1: Does the patient require help from a person or device, or need extra time to understand complex and a bstract ideas (such as current events, finances, discharge planning, medical issues, relationships, e tc)? No. COMPREHENSION - STEP 2: Does the patient need extra time, require an assistive device (such as glasses for visual comprehensi on or a hearing aid for auditory comprehension) or does s/he have mild difficulty understanding compl ex and abstract information? Yes. COMPREHENSION - SCORE: 6-KENZIE EXPRESSION EXPRESSION: TYPE: Both EXPRESSION - STEP 1: Does the patient require help from a person or device, or need extra time expressing complex and abst ract ideas (such as current events, finances, discharge planning, medical issues, relationships, etc) ? No. EXPRESSION - STEP 2: Does the patient need extra time, require an assistive device (such as augmentive communication syste m or a communication board), OR does s/he have mild difficulty expressing complex and abstract ideas (including mild dysarthria or mild word-find problems)? No. EXPRESSION - SCORE: 7-IND SOCIAL INTERACTION: SOCIAL INTERACTION - STEP 1: Does the patient require a helper to interact with others in social and therapeutic situations? No. SOCIAL INTERACTION - STEP 2: Does the patient need extra time in social situations, OR does s/he interact with staff, other patien ts, and family members ONLY in structured environments, OR does s/he require medication for social in teraction? No. SOCIAL INTERACTION - SCORE: 7-IND PROBLEM SOLVING: PROBLEM SOLVING - STEP 1: Does the patient need help from a person or device, or need extra time to solve complex problems such as managing a checking account or confronting interpersonal problems? No. PROBLEM SOLVING - STEP 2: Does the patient require extra time to make decisions or solve problems, OR does s/he have slight dif ficulty reading, initiating, or self-correcting in unfamiliar situations? No. PROBLEM SOLVING - SCORE: 7-IND MEMORY: MEMORY - STEP 1: Does the patient need help from a person or device, or need extra time to remember frequently encount ered people, daily routines, and executing requests? No. MEMORY - STEP 2: Does the patient have slight difficulty recognizing frequently encountered people, daily routines, or executing requests without the need for repetition or using self-initiated or environmental cues to remember? No. MEMORY - SCORE: 7-IND SIGNATURE PANEL: The following modified sections: Eating - Score, Grooming - Score, Bathing - Score, Dressing - Upper Body - Score, Dressing - Lower Body - Score, Toileting - Score, Bladder Management - Score, Bowel Man agement - Score, Transfers: Bed, Chair, Wheelchair - Score, Transfers: Toilet - Score, Transfers: Radha wer - Score, Transfers: Tub - Score, Locomotion: Walk - Score, Locomotion: Wheelchair - Score, Compre hension - Score, Expression - Score, Social Interaction - Score, Problem Solving - Score, Memory - Sc ore were [electronically] signed by Adonis Davidson on SunMar 26 2018 14:26:10 GMT-0600 (Central Standard Time)
[2018-03-26] MEDS: HYDROCODONE/APAP 5/325 MG TAB PO PRN (19:11)
[2018-03-26] MEDS: AMITRIPTYLINE 25 MG TAB PO SCH (21:00)
[2018-03-26] MEDS: VANCOMYCIN/NS 1 gm 1 GM/250 ML BAG IVPB SCH (21:23)
--- NOTE | 2018-03-27 02:04 | FAST ---
SHIFT START DATE/TIME: 03/26/2018 19:00 (CANCER PROGRAM DIRECTOR) SHIFT END DATE/TIME: 03/27/2018 07:00 (CANCER PROGRAM DIRECTOR) NAME DEL JOSUE DATE OF : 1975 DATE OF ADMISSION: 03/24/2018 14:02 (CANCER PROGRAM DIRECTOR) PHONE: AGE: 42 N# [id number] GENDER: Female ENCOUNTER PHYSICIAN: Dr. Praful Triana M.D. ADMISSION DIAGNOSIS: - Orthopaedic Disorders 08 - Unilateral Hip Fracture (08.11) Right hip comminuted intertrochanteric and subtrochanteric femur fracture. EATING: Activity did not occur on this shift EATING - SCORE: 0-UNK GROOMING: Activity did not occur on this shift GROOMING - SCORE: 0-UNK BATHING: Activity did not occur on this shift BATHING - SCORE: 0-UNK DRESSING - UPPER BODY: Patient is not dressing in public clothing ARTICLES SCORE Total number of steps: 0 DRESSING - UPPER BODY - SCORE: 0-UNK DRESSING - LOWER BODY: Patient is not dressing in public clothing ARTICLES SCORE Total number of steps: 0 DRESSING - LOWER BODY - SCORE: 0-UNK TOILETING: TOILETING - STEP 1: Does the patient require the assistance of a person or device, or need extra time with toileting? Yes . TOILETING - STEP 2: Does the patient require the assistance of a helper? Yes. TOILETING - STEP 3: How much assistance does the patient require from the helper? Only supervision TOILETING - SCORE: 5-SUP BLADDER MANAGEMENT: BLADDER MANAGEMENT - STEP 1: Does the patient control the bladder completely and intentionally without equipment or devices or med ications, and is always continent? No. BLADDER MANAGEMENT - STEP 2: Does the patient require the assistance of a helper? Yes. BLADDER MANAGEMENT - STEP 3: How much assistance does the patient require from the helper? Only supervision, stand-by, cuing, or c oaxing BLADDER MANAGEMENT - SCORE: 5-SUP BOWEL MANAGEMENT: BOWEL MANAGEMENT - STEP 1: Does the patient control bowels completely and intentionally without equipment devices or medications AND is always continent? No. BOWEL MANAGEMENT - STEP 2: Does the patient require the assistance of a helper? No, patient requires medication for control such as stool softeners, suppositories, laxatives, enemas, or OTC medications BOWEL MANAGEMENT - SCORE: 6-KENZIE TRANSFERS: BED, CHAIR, WHEELCHAIR: TRANSFERS: BED, CHAIR, WHEELCHAIR - STEP 1: Does the patient require assistance of a person or device, or need extra time with bed, chair, or whe elchair transfers? Yes. TRANSFERS: BED, CHAIR, WHEELCHAIR - STEP 2: Does the patient require the assistance of a helper? Yes. TRANSFERS: BED, CHAIR, WHEELCHAIR - STEP 3: How much assistance does the patient require from the helper? Lifting of the legs TRANSFERS: BED, CHAIR, WHEELCHAIR - STEP 4: How many legs does the patient require the helper to lift? both legs TRANSFERS: BED, CHAIR, WHEELCHAIR - SCORE: 3-MOD TRANSFERS: TOILET: TRANSFERS: TOILET - STEP 1: Does the patient require the assistance of a person or device, or need extra time with toilet transfe rs? Yes. TRANSFERS: TOILET - STEP 2: Does the patient require the assistance of a helper? Yes. TRANSFERS: TOILET - STEP 3: How much assistance does the patient require from the helper? Only supervision, cuing, coaxing, OR he lp to set out transfer equipment or to lock brakes and/or lift foot rests TRANSFERS: TOILET - SCORE: 5-SUP TRANSFERS: SHOWER: Activity did not occur on this shift TRANSFERS: SHOWER - SCORE: 0-UNK TRANSFERS: TUB: Activity did not occur on this shift TRANSFERS: TUB - SCORE: 0-UNK LOCOMOTION: WALK: Activity did not occur on this shift LOCOMOTION: WALK - SCORE: 0-UNK LOCOMOTION: WHEELCHAIR: Activity did not occur on this shift LOCOMOTION: WHEELCHAIR - SCORE: 0-UNK COMPREHENSION: COMPREHENSION: TYPE: Both COMPREHENSION - STEP 1: Does the patient require help from a person or device, or need extra time to understand complex and a bstract ideas (such as current events, finances, discharge planning, medical issues, relationships, e tc)? No. COMPREHENSION - STEP 2: Does the patient need extra time, require an assistive device (such as glasses for visual comprehensi on or a hearing aid for auditory comprehension) or does s/he have mild difficulty understanding compl ex and abstract information? No. COMPREHENSION - SCORE: 7-IND EXPRESSION EXPRESSION: TYPE: Both EXPRESSION - STEP 1: Does the patient require help from a person or device, or need extra time expressing complex and abst ract ideas (such as current events, finances, discharge planning, medical issues, relationships, etc) ? No. EXPRESSION - STEP 2: Does the patient need extra time, require an assistive device (such as augmentive communication syste m or a communication board), OR does s/he have mild difficulty expressing complex and abstract ideas (including mild dysarthria or mild word-find problems)? No. EXPRESSION - SCORE: 7-IND SOCIAL INTERACTION: SOCIAL INTERACTION - STEP 1: Does the patient require a helper to interact with others in social and therapeutic situations? No. SOCIAL INTERACTION - STEP 2: Does the patient need extra time in social situations, OR does s/he interact with staff, other patien ts, and family members ONLY in structured environments, OR does s/he require medication for social in teraction? Yes, patient needs extra time SOCIAL INTERACTION - SCORE: 6-KENZIE PROBLEM SOLVING: PROBLEM SOLVING - STEP 1: Does the patient need help from a person or device, or need extra time to solve complex problems such as managing a checking account or confronting interpersonal problems? No. PROBLEM SOLVING - STEP 2: Does the patient require extra time to make decisions or solve problems, OR does s/he have slight dif ficulty reading, initiating, or self-correcting in unfamiliar situations? Yes, patient needs extra ti me. PROBLEM SOLVING - SCORE: 6-KENZIE MEMORY: MEMORY - STEP 1: Does the patient need help from a person or device, or need extra time to remember frequently encount ered people, daily routines, and executing requests? No. MEMORY - STEP 2: Does the patient have slight difficulty recognizing frequently encountered people, daily routines, or executing requests without the need for repetition or using self-initiated or environmental cues to remember? No. MEMORY - SCORE: 7-IND SIGNATURE PANEL: The following modified sections: Eating - Score, Grooming - Score, Dressing - Upper Body - Score, Jens ssing - Lower Body - Score, Toileting - Score, Bladder Management - Score, Bowel Management - Score, Transfers: Bed, Chair, Wheelchair - Score, Transfers: Toilet - Score, Transfers: Shower - Score, Ferrara sfers: Tub - Score, Locomotion: Walk - Score, Locomotion: Wheelchair - Score, Comprehension - Score, Expression - Score, Social Interaction - Score, Problem Solving - Score, Memory - Score were [electro nically] signed by Jami Hilton CNA on SunMar 27 2018 01:50:34 GMT-0600 (Central Standard Time)
[2018-03-27 06:03] LABS: Absolute Lymphocytes (CBC) 0.8 K/uL (0.7-4.9); Absolute Monocytes 0.7 K/uL (0.1-1.3); Absolute Neutrophil 3.3 K/uL (1.8-8.0); Basophils % 0.8 % (0-1.3); Eosinophils % 8.4 % (0-4.4); Lymphocytes % 14.8 % (15.3-44.8); Monocytes % 13.1 % (3.3-12.3); RBC Red Blood Cell Count 2.69 M/uL (3.86-4.86)
[2018-03-27 06:22] LABS: Albumin 1.9 g/dL (3.4-5.0); Potassium 3.8 mmol/L (3.5-5.1); Prealbumin 8.6 mg/dL (20-40)
[2018-03-27] MEDS: SUCRALFATE 1GM/10ML UCUP FT SCH ×2 (07:30→11:30)
[2018-03-27] MEDS: INSULIN -REGULAR HUMAN 50 UNIT/0.5 ML ML SQ SCH ×4 (07:30→21:12)
[2018-03-27] MEDS: FLUOXETINE 20 MG CAP PO SCH (07:53)
[2018-03-27] MEDS: FUROSEMIDE 20 MG TABLET PO SCH (07:53)
[2018-03-27] MEDS: FE SULF/FA/VIT B COMP & C TAB PO SCH (07:53)
[2018-03-27] MEDS: GABAPENTIN 300 MG CAP PO SCH ×2 (07:53→19:29)
[2018-03-27] MEDS: PANTOPRAZOLE 40MG TABLET PO SCH (07:54)
[2018-03-27] MEDS: TRAMADOL HCL 50 MG TAB PO PRN (07:54)
[2018-03-27] MEDS: FLUCONAZOLE 100 MG TAB PO SCH (07:57)
[2018-03-27] MEDS: MIDODRINE HCL 5 MG TABLET PO SCH (07:57)
[2018-03-27] MEDS: Meropenem 500 MG in NA CHLORIDE 0.9% 100 ML IV SCH ×2 (07:57→19:28)
[2018-03-27] MEDS: INSULIN GLARGINE 100 UNITS/ML SQ SCH (07:58)
[2018-03-27] MEDS: PROMOD 30 ML DOSE PO SCH ×2 (07:59→19:28)
[2018-03-27] MEDS: FERROUS SULFATE 325 MG TAB PO SCH ×2 (07:59→19:29)
--- NOTE | 2018-03-27 10:48 | P.RH.PN ---
Estimated Length of Stay: 14 Expected Discharge Date: 04/07/18 Discharge Disposition Plan: Home Family Support: Yes Group Home Goal: Mobility, Transfers, Self Care Vital Signs: Last Vital Signs Temp 97 F 03/27/18 06:58 Pulse 80 03/27/18 07:53 Resp 16 03/27/18 06:58 BP 118/60 03/27/18 07:53 Pulse Ox 99 03/27/18 06:58 Laboratory: Laboratory Last Values WBC 5.2 K/uL (4.3-10.9) 03/27/18 05:40 RBC 2.69 M/uL (3.86-4.86) L 03/27/18 05:40 Hgb 8.2 g/dL (12.0-15.0) L 03/27/18 05:40 Hct 24.0 % (36.0-45.0) L 03/27/18 05:40 MCV 89.1 fL (80-100) 03/27/18 05:40 MCH 30.4 pg (27.0-35.0) 03/27/18 05:40 MCHC 34.1 g/dL (32.0-36.0) 03/27/18 05:40 RDW 17.9 % (12.1-15.2) H 03/27/18 05:40 Plt Count 133 K/uL (152-406) L 03/27/18 05:40 MPV 8.0 fL (7.6-11.3) 03/27/18 05:40 Neutrophils % 62.9 % (41.7-73.7) 03/27/18 05:40 Lymphocytes % 14.8 % (15.3-44.8) L 03/27/18 05:40 Monocytes % 13.1 % (3.3-12.3) H 03/27/18 05:40 Eosinophils % 8.4 % (0-4.4) H 03/27/18 05:40 Basophils % 0.8 % (0-1.3) 03/27/18 05:40 Absolute Neutrophils 3.3 K/uL (1.8-8.0) 03/27/18 05:40 Absolute Lymphocytes 0.8 K/uL (0.7-4.9) 03/27/18 05:40 Absolute Monocytes 0.7 K/uL (0.1-1.3) 03/27/18 05:40 Absolute Eosinophils 0.4 K/uL (0-0.5) 03/27/18 05:40 Absolute Basophils 0.0 K/uL (0-0.5) 03/27/18 05:40 Sodium 141 mmol/L (136-145) 03/27/18 05:40 Potassium 3.8 mmol/L (3.5-5.1) 03/27/18 05:40 Chloride 104 mmol/L (98-107) 03/27/18 05:40 Carbon Dioxide 31 mmol/L (21-32) 03/27/18 05:40 BUN 30 mg/dL (7-18) H 03/27/18 05:40 Creatinine 1.76 mg/dL (0.55-1.3) H 03/27/18 05:40 Estimated GFR 32 mL/min (=/>90) L 03/27/18 05:40 Glucose 121 mg/dL (74-106) H 03/27/18 05:40 POC Glucose 101 mg/dl (65-120) 03/27/18 07:04 Calcium 8.2 mg/dL (8.5-10.1) L 03/27/18 05:40 Magnesium 2.3 mg/dL (1.8-2.4) 03/25/18 05:15 Albumin 1.9 g/dL (3.4-5.0) L 03/27/18 05:40 Prealbumin 8.6 mg/dL (20-40) L 03/27/18 05:40 Urine Color Yellow 03/24/18 21:55 Urine Appearance Clear 03/24/18 21:55 Urine pH 7.5 (5.0-7.0) H 03/24/18 21:55 Ur Specific [place] 1.010 (1.005-1.030) 03/24/18 21:55 Urine Ketones Negative (NEG) 03/24/18 21:55 Urine Blood Negative (NEG) 03/24/18 21:55 Urine Nitrite Negative (NEG) 03/24/18 21:55 Urine Bilirubin Negative (NEG) 03/24/18 21:55 Urine Urobilinogen 0.2 mg/dL (0.2-1.0) 03/24/18 21:55 Ur Leukocyte Esterase 1+ (NEG) H 03/24/18 21:55 Urine RBC <5 /HPF (NONE SEEN) 03/24/18 21:55 Urine WBC 5-10 /HPF (<5) H 03/24/18 21:55 Ur Squamous Epith Cells <5 /HPF (NONE SEEN) 03/24/18 21:55 Urine Bacteria <20 /HPF (<20) 03/24/18 21:55 Urine Culture Reflexed Reflexed 03/24/18 21:55 Urine Glucose Negative (NEG) 03/24/18 21:55 Urine Total Protein Negative (NEG) 03/24/18 21:55 Vancomycin Trough 13.3 ug/mL (5.0-20.0) 03/26/18 19:50 Weight: 150 lb 0.2 oz Wound Present: Yes Closed Surgical Incision Present: Yes Negative Pressure Wound Therapy Present: No Physician Update: Labs have been reviewed. She has chronic renal insufficiency and is followed by the renal service. She is doing well with physical and occupational therapy. She had 4 loose bowels after going out for day pass yesterday. She had on BM today. Will send stool for c-diff if more BMs continue. Medication Issues: Osteomyelitis - Meropenem 5oomg Q12H IV. Vancomycin 1 gm Q48H IV Pain Issues: Tramadol 50mg Q4H PRN. 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 Please see the Rehabilitation Signature page for all necessary signatures.
--- NOTE | 2018-03-27 11:34 | FAST ---
ENCOUNTER DATE AND TIME: 03/27/2018 08:00 (BENEFITS COORDINATOR) NAME DEL JOSUE DATE OF : 1975 DATE OF ADMISSION: 03/24/2018 14:02 (BENEFITS COORDINATOR) PHONE: AGE: 42 SSN# [id number] GENDER: Female ENCOUNTER PHYSICIAN: Dr. Praful Triana M.D. ADMISSION DIAGNOSIS: - Orthopaedic Disorders 08 - Unilateral Hip Fracture (08.11) Right hip comminuted intertrochanteric and subtrochanteric femur fracture. EATING: Activity did not occur on this shift EATING - SCORE: 0-UNK GROOMING: Activity did not occur on this shift GROOMING - SCORE: 0-UNK BATHING: Activity did not occur on this shift BATHING - SCORE: 0-UNK DRESSING - UPPER BODY: Activity did not occur on this shift Patient is not dressing in public clothing ARTICLES SCORE Total number of steps: 0 DRESSING - UPPER BODY - SCORE: 0-UNK DRESSING - LOWER BODY: Activity did not occur on this shift Patient is not dressing in public clothing ARTICLES SCORE Total number of steps: 0 DRESSING - LOWER BODY - SCORE: 0-UNK TOILETING: Activity did not occur on this shift TOILETING - SCORE: 0-UNK BLADDER MANAGEMENT: Activity did not occur on this shift BLADDER MANAGEMENT - SCORE: 7-IND BOWEL MANAGEMENT: Activity did not occur on this shift BOWEL MANAGEMENT - SCORE: 7-IND TRANSFERS: BED, CHAIR, WHEELCHAIR: TRANSFERS: BED, CHAIR, WHEELCHAIR - STEP 1: Does the patient require assistance of a person or device, or need extra time with bed, chair, or whe elchair transfers? Yes. TRANSFERS: BED, CHAIR, WHEELCHAIR - STEP 2: Does the patient require the assistance of a helper? No. Patient only requires an assistive device fo r bed, chair, wheelchair transfers such as a sliding board, grab bar, or brace, OR s/he takes more th an reasonable time, OR there is a safety concern when s/he performs the transfers TRANSFERS: BED, CHAIR, WHEELCHAIR - SCORE: 6-KENZIE TRANSFERS: TOILET: Activity did not occur on this shift TRANSFERS: TOILET - SCORE: 0-UNK TRANSFERS: SHOWER: Activity did not occur on this shift TRANSFERS: SHOWER - SCORE: 0-UNK TRANSFERS: TUB: Activity did not occur on this shift TRANSFERS: TUB - SCORE: 0-UNK LOCOMOTION: WALK: LOCOMOTION: WALK - STEP 1: Does the patient need help from a person or device, or need extra time to walk 150 feet? No. LOCOMOTION: WALK - STEP 2: Does the patient need an assistive device (such as an orthosis, prosthesis, crutches, or walker) to g o 150 feet, OR does s/he take more than reasonable time, OR is there a concern for safety? Yes, the p atient needs an assistive device LOCOMOTION: WALK - SCORE: 6-KENZIE LOCOMOTION: WHEELCHAIR: LOCOMOTION: WHEELCHAIR - STEP 1: Does the patient need help to go 150 feet in a wheelchair? No. LOCOMOTION: WHEELCHAIR - SCORE: 6-KENZIE LOCOMOTION: STAIRS: Activity did not occur on this shift LOCOMOTION: STAIRS - SCORE: 0-UNK COMPREHENSION: COMPREHENSION - SCORE: 0-UNK EXPRESSION EXPRESSION - SCORE: 0-UNK SOCIAL INTERACTION: SOCIAL INTERACTION - SCORE: 0-UNK PROBLEM SOLVING: PROBLEM SOLVING - SCORE: 0-UNK MEMORY: MEMORY - SCORE: 0-UNK SIGNATURE PANEL: The following modified sections: Transfers: Bed, Chair, Wheelchair - Score, Transfers: Toilet - Score , Locomotion: Walk - Score, Locomotion: Wheelchair - Score, Locomotion: Stairs - Score were [electron misty] signed by Evelio Martínez PTA on SunMar 27 2018 11:33:44 GMT-0600 (Central Standard Time)
--- NOTE | 2018-03-27 13:47 | FAST ---
SHIFT START DATE/TIME: 03/27/2018 07:00 (PINION AND WHEEL TRUER) SHIFT END DATE/TIME: 03/27/2018 19:00 (PINION AND WHEEL TRUER) NAME DEL JOSUE DATE OF : 1975 DATE OF ADMISSION: 03/24/2018 14:02 (PINION AND WHEEL TRUER) PHONE: AGE: 42 N# [id number] GENDER: Female ENCOUNTER PHYSICIAN: Dr. Praful Triana M.D. ADMISSION DIAGNOSIS: - Orthopaedic Disorders 08 - Unilateral Hip Fracture (08.11) Right hip comminuted intertrochanteric and subtrochanteric femur fracture. EATING: EATING - STEP 1: Does the patient require the assistance of a person or device, or need extra time when eating? Yes. EATING - STEP 2: Does the patient require the assistance of a helper? No, patient only requires an assistive device, O R s/he takes more than reasonable time to eat, OR there is a safety concern, OR s/he requires modifie d food consistency EATING - SCORE: 6-KENZIE GROOMING: Comb/brush hair Wash, rinse, and dry face Wash, rinse, and dry hands GROOMING - STEP 1: Does the patient require the assistance of a person or device, or need extra time when grooming? Yes. GROOMING - STEP 2: Does the patient require the assistance of a helper? No. The patient only requires an assistive devic e, OR takes more than reasonable time to groom, OR there is a concern for safety as the patient groom s GROOMING - SCORE: 6-KENZIE BATHING: Activity did not occur on this shift BATHING - SCORE: 0-UNK DRESSING - UPPER BODY: ARTICLES SCORE Total number of steps: 0 DRESSING - UPPER BODY - STEP 1: Does the patient require help from a person or device, or need extra time when dressing above the [address]? Yes. DRESSING - UPPER BODY - STEP 2: Does the patient require the assistance of a helper? No. Patient only requires an assistive device, s uch as a button hook, velcro, or certified alcohol drug counselor. OR s/he takes more than reasonable time as s/he dresses the upper body. OR there is a concern for safety when s/he dresses the upper body DRESSING - UPPER BODY - SCORE: 6-KENZIE DRESSING - LOWER BODY: Elastic waist pants (three steps) Underwear (three steps) ARTICLES SCORE Total number of steps: 6 DRESSING - LOWER BODY - STEP 1: Does the patient require help from a person or device, or need extra time when dressing below the jaylen st? Yes. DRESSING - LOWER BODY - STEP 2: Does the patient require the assistance of a helper? No. Patient requires an assistive device such as a certified alcohol drug counselor. OR s/he takes more than reasonable time as s/he dresses the lower body, OR there is a con cern for safety when s/he dresses the lower body DRESSING - LOWER BODY - SCORE: 6-KENZIE TOILETING: TOILETING - STEP 1: Does the patient require the assistance of a person or device, or need extra time with toileting? Yes . TOILETING - STEP 2: Does the patient require the assistance of a helper? Yes. TOILETING - STEP 3: How much assistance does the patient require from the helper? Only supervision TOILETING - SCORE: 5-SUP BLADDER MANAGEMENT: BLADDER MANAGEMENT - STEP 1: Does the patient control the bladder completely and intentionally without equipment or devices or med ications, and is always continent? No. BLADDER MANAGEMENT - STEP 2: Does the patient require the assistance of a helper? No, patient only requires extra time BLADDER MANAGEMENT - SCORE: 6-KENZIE BLADDER MANAGEMENT - FREQUENCY OF ACCIDENTS: BLADDER MANAGEMENT(FA) - STEP 1: How many accidents has the patient had during the current shift? 0 BOWEL MANAGEMENT: Activity did not occur on this shift BOWEL MANAGEMENT - SCORE: 7-IND BOWEL MANAGEMENT - FREQUENCY OF ACCIDENTS: BOWEL MANAGEMENT(FA) - STEP 1: How many accidents has the patient had during the current shift? 3 TRANSFERS: BED, CHAIR, WHEELCHAIR: TRANSFERS: BED, CHAIR, WHEELCHAIR - STEP 1: Does the patient require assistance of a person or device, or need extra time with bed, chair, or whe elchair transfers? Yes. TRANSFERS: BED, CHAIR, WHEELCHAIR - STEP 2: Does the patient require the assistance of a helper? No. Patient only requires an assistive device fo r bed, chair, wheelchair transfers such as a sliding board, grab bar, or brace, OR s/he takes more th an reasonable time, OR there is a safety concern when s/he performs the transfers TRANSFERS: BED, CHAIR, WHEELCHAIR - SCORE: 6-KENZIE TRANSFERS: TOILET: TRANSFERS: TOILET - STEP 1: Does the patient require the assistance of a person or device, or need extra time with toilet transfe rs? Yes. TRANSFERS: TOILET - STEP 2: Does the patient require the assistance of a helper? Yes. TRANSFERS: TOILET - STEP 3: How much assistance does the patient require from the helper? Patient performs half or more of the tr ansferring tasks TRANSFERS: TOILET - STEP 4: Does the patient need only incidental help such as contact guard or steadying during toilet transfer? Yes. TRANSFERS: TOILET - SCORE: 4-MIN TRANSFERS: SHOWER: Activity did not occur on this shift TRANSFERS: SHOWER - SCORE: 0-UNK TRANSFERS: TUB: Activity did not occur on this shift TRANSFERS: TUB - SCORE: 0-UNK LOCOMOTION: WALK: Activity did not occur on this shift LOCOMOTION: WALK - SCORE: 0-UNK LOCOMOTION: WHEELCHAIR: Activity did not occur on this shift LOCOMOTION: WHEELCHAIR - SCORE: 0-UNK COMPREHENSION: COMPREHENSION: TYPE: Both COMPREHENSION - STEP 1: Does the patient require help from a person or device, or need extra time to understand complex and a bstract ideas (such as current events, finances, discharge planning, medical issues, relationships, e tc)? No. COMPREHENSION - STEP 2: Does the patient need extra time, require an assistive device (such as glasses for visual comprehensi on or a hearing aid for auditory comprehension) or does s/he have mild difficulty understanding compl ex and abstract information? Yes. COMPREHENSION - SCORE: 6-KENZIE EXPRESSION EXPRESSION: TYPE: Both EXPRESSION - STEP 1: Does the patient require help from a person or device, or need extra time expressing complex and abst ract ideas (such as current events, finances, discharge planning, medical issues, relationships, etc) ? No. EXPRESSION - STEP 2: Does the patient need extra time, require an assistive device (such as augmentive communication syste m or a communication board), OR does s/he have mild difficulty expressing complex and abstract ideas (including mild dysarthria or mild word-find problems)? Yes. EXPRESSION - SCORE: 6-KENZIE SOCIAL INTERACTION: SOCIAL INTERACTION - STEP 1: Does the patient require a helper to interact with others in social and therapeutic situations? No. SOCIAL INTERACTION - STEP 2: Does the patient need extra time in social situations, OR does s/he interact with staff, other patien ts, and family members ONLY in structured environments, OR does s/he require medication for social in teraction? Yes, patient needs extra time SOCIAL INTERACTION - SCORE: 6-KENZIE PROBLEM SOLVING: PROBLEM SOLVING - STEP 1: Does the patient need help from a person or device, or need extra time to solve complex problems such as managing a checking account or confronting interpersonal problems? No. PROBLEM SOLVING - STEP 2: Does the patient require extra time to make decisions or solve problems, OR does s/he have slight dif ficulty reading, initiating, or self-correcting in unfamiliar situations? Yes, patient needs extra ti me. PROBLEM SOLVING - SCORE: 6-KENZIE MEMORY: MEMORY - STEP 1: Does the patient need help from a person or device, or need extra time to remember frequently encount ered people, daily routines, and executing requests? No. MEMORY - STEP 2: Does the patient have slight difficulty recognizing frequently encountered people, daily routines, or executing requests without the need for repetition or using self-initiated or environmental cues to remember? Yes. MEMORY - SCORE: 6-KENZIE SIGNATURE PANEL: The following modified sections: Eating - Score, Grooming - Score, Bathing - Score, Dressing - Upper Body - Score, Dressing - Lower Body - Score, Toileting - Score, Bladder Management - Score, Bowel Man agement - Score, Transfers: Bed, Chair, Wheelchair - Score, Transfers: Toilet - Score, Transfers: Radha wer - Score, Transfers: Tub - Score, Locomotion: Walk - Score, Locomotion: Wheelchair - Score, Compre hension - Score, Expression - Score, Social Interaction - Score, Problem Solving - Score, Memory - Sc ore were [electronically] signed by Beena RodriguezNLaura on SunMar 27 2018 13:45:43 GMT-0600 (Cent[place] Standard Time)
[2018-03-27] MEDS: MEDIHONEY 44 ML TOPICAL TUBE TOP SCH (15:56)
--- NOTE | 2018-03-27 16:28 | RAD REPORT ---
EXAM DESCRIPTION: RAD - Hip Right 2 View - 03/27/2018 4:13 pm CLINICAL HISTORY: Fall, pelvis and hip pain, recent right femur fracture repair COMPARISON: CT study March 12, abdomen exam March 11, intraoperative examination March 05 FINDINGS: No fracture of the right hemipelvis identified. Fracture fixation hardware is in place. Th e main fracture line along the lesser trochanter and sub trochanteric femur again noted. A new fractu re line is not identified. On the frog-leg view there is good positioning of the fracture fragments. On the frontal projection, there may be slight widening of the fracture plane or possibly minimal mov ement. Interval change is minimal if any. There is no prior study that is comparably positioned to th is examination. IMPRESSION: No new fracture is seen. There may be a slight widening or movement along the primary fr acture plane. There is no prior study that is a comparable positioning to this examination.
--- NOTE | 2018-03-27 16:29 | RAD REPORT ---
EXAM DESCRIPTION: RAD - Sacrum And Coccyx - 03/27/2018 4:14 pm CLINICAL HISTORY: Fall, sacrum and coccyx pain, recent right hip fracture repair COMPARISON: None. FINDINGS: Bones are osteopenic. No displaced or angulated sacrum or coccygeal segments. No convincin g evidence for acute fracture. No sacral ala abnormality acutely noted. Pubic symphysis is normal. IMPRESSION: No acute sacrum or coccyx fracture identifiable. Continued, unexplained symptoms can be further addressed with CT imaging.
[2018-03-27] MEDS: FUROSEMIDE 40 MG TABLET PO SCH (17:05)
--- NOTE | 2018-03-27 17:20 | R.PN ---
ENCOUNTER DATE AND TIME: 03/27/2018 17:08 (PACKAGE LINE OPERATOR) NAME DEL YORK DATE OF : 1975 DATE OF ADMISSION: 03/24/2018 14:02 (PACKAGE LINE OPERATOR) Right hip comminuted intertrochanteric and subtrochanteric femur fractureCHIEF COMPLAINT: Right hip fracture SUBJECTIVE: Pt denied any depression. Pt denied any Shortness of Breath. Ms. York reported more right hip pain at her morning team meeting after a 12-hour visit home yeste rday on 03-26-18. She denied any unusual or unexpected activity while out on community reintegration. She also had a fall while in the rest room today. No reported injury to the hip. Ordered right hip x -rays showed no new fracture but possible slight widening or movement along the primary fracture plan e. Dr. Keller will be notified. Her pain is managed with Graham, tramadol and gabapentin. Despite her right hip pain she ambulated 500' with modified independence using a rolling walker. Self -propelled a wheelchair 250' with modified independence. VITAL SIGNS Temperature: 97.6 F SBP/DBP: 108/52 Pulse: 79 Resp: 16 MEDICATION ALLERGIES: acetaminophen PENICILLINS ENVIRONMENTAL ALLERGIES: - Substance Allergies None Known - Other Allergies None Known NURSING: - Shower allowing shower - Skin care per protocol PRECAUTIONS: - Posterior Hip Precaution No adduction across midline No external rotation No hip flexion >90 degrees No internal rotation No wheel chair propulsion - Weight Bearing Precaution TTWB right LE ACTIVITIES OOB only with supervision THERAPIES: - Occupational Therapy Evaluate and Treat. - Physical Therapy Evaluate and Treat. PHYSICAL EXAM - Gen Alert and awake Lying in bed No apparent distress Oriented to: person, time, and place - Skin No breakdowns No abnormalities - Eyes No abnormalities - ENMT No abnormalities - Neck No abnormalities - CVS RRR - Chest No abnormalities - Resp Clear to auscultation - Abd + bowel sounds - GI Soft Deferred - No abnormalities - Ext Moderate edema in both lower extremities. - MSK 4+/5 weakness in both lower extremities. - Neuro No focal deficits - Psych No abnormalities ASSESSMENT: Pt. is a 42 yo Right-handed female.On 03/04/2018 she was admitted to [facility] and underwent emergency surgery for Right hip comminuted intertrochanteric and subtrochante david femur fracture (Unilateral Hip Fracture) by Zara Morris.Pre-morbidly, Pt. was independent/mod- I in Communication, Social Cognition, Self-Care, Sphincter Control, Transfers Control, and Locomotion ; and she had good Sphincter Control.Currently, she has deficits of Communication, Social Cognition, Balance, Endurance, Safety Awareness, Transfers Control, Locomotion, and Self-Care.Pt. is now referre d to [facility] for acute in-patient rehabilitation in order to maximize patie nt's functional independence in activities of daily living, strength, ROM, and mobility.- Rehab Goal Patient has realistic goal of being discharged at assistance level 3-modA to reside at Home with Fam riaz/Relatives. MDM/PLAN: - Physical Therapy Decreased range of motion - to improve, our physical therapists will perform initial evaluation of p t's status upon admission and devise an individualized program for increasing patient's Range of Alvino on. Gait dysfunction - to improve, our physical therapists will perform initial evaluation of pt's statu s upon admission and devise an individualized program for Gait Training, and Wheel Chair mobility Inability to transfer - to improve, our physical therapists will perform initial evaluation of pt's status upon admission and devise an individualized program for Bed mobility Need for home safety evaluation - to improve, our physical therapists will perform initial evaluatio n of pt's status upon admission and devise an individualized program for Home Evaluation Need in caregiver upon discharge - to improve, our physical therapists will perform initial evaluati on of pt's status upon admission and devise an individualized program for Caregiver Training New precaution - to improve, our physical therapists will perform initial evaluation of pt's status upon admission and devise an individualized program for Patient precaution education Edema - to improve, our physical therapists will perform initial evaluation of pt's status upon admis avril and devise an individualized program for Elevation Training, and Lymphedema Therapy Poor balance - to improve, our physical therapists will perform initial evaluation of pt's status up on admission and devise an individualized program for Balance Training Poor endurance - to improve, our physical therapists will perform initial evaluation of pt's status upon admission and devise an individualized program for Endurance Training Weakness - to improve, our physical therapists will perform initial evaluation of pt's status upon a dmission and devise an individualized program for Aquatic Therapy, Neuromuscular Reeducation, and Str engthening Achieving independence - to improve, our physical therapists will perform initial evaluation of pt's status upon admission and devise an individualized program for Community Reintegration Activities - Occupational Therapy ADL deficits - to improve, our occupation therapists will perform initial evaluation of pt's status upon admission and devise an individualized program for Bathing, Bed mobility, Community Reintegratio n, Cooking, Dressing, Eating, Fine Motor Skills, Grooming, Homemaking, Kitchen Mobility, Laundry, Pat ient Education, Safety Awareness, Splinting - Positioning, Transfers(Toilet, Tub, Shower), and Wheel Chair Management Cognitive deficits - to improve, our occupation therapists will perform initial evaluation of pt's s tatus upon admission and devise an individualized program for Cognition - orientation Need for senior resident care director - to improve, our occupation therapists will perform initial evaluation of pt's status upon admission and devise an individualized program for Caregiver Training Weakness - to improve, our occupation therapists will perform initial evaluation of pt's status upon admission and devise an individualized program for Aquatic Therapy, Balance, Endurance, UE ROM, and UE strengthening - Anterior Hip Precaution No abduction No active extension No adduction across midline No external rotation No hip flexion >90 degrees No internal rotation - Diet - Liquid Texture Continue Regular - Tube Feed Continue N/A - Diet Type Continue Regular - Posterior Hip Precaution No adduction across midline No external rotation No hip flexion >90 degrees No internal rotation No wheel chair propulsion - Weight Bearing Precaution TTWB right LE - Skin care per protocol - Diet - Solid Texture Continue Regular - Shower allowing shower FUNCTIONAL STATUS: UPDATED AT WEEKLY TEAM CONFERENCE - Bladder Same accident frequency: 7-Ind - No accidents in the past 7 days - Bowel Same accident frequency: 7-Ind - No accidents in the past 7 days - Walking Same score based on distance walked: 2(50-149ft) FUNCTIONAL STATUS: - Self-Care A. Eating Ind B. Grooming Ind C. Bathing Ind D. Dressing - Upper sup E. Dressing - Lower Ceasra F. Toileting modA - Sphincter Control G: Bladder control Ind H: Bowel control Ind - Transfers Control I. Bed/Chair/Wheelchair sup J. Toilet Ceasar K. Tub/Shower Ceasar - Locomotion L. Walk/Wheelchair (B) modA M. Stairs ADNO - Communication N. Comprehension (B) sup O. Expression (B) sup - Social Cognition P. Social Interaction Ceasar Q. Problem Solving sup R. Memory Deven - Endurance Fair - Balance Fair - Safety Awareness Poor CURRENT FUNC. DEFICITS: Communication, Social Cognition, Balance, Endurance, Safety Awareness, Transfers Control, Locomotion, and Self-Care SIGNATURE PANEL: ([facility])
[2018-03-27] MEDS: ONDANSETRON 4 MG (ODT) TAB PO PRN (20:58)
[2018-03-27] MEDS: AMITRIPTYLINE 25 MG TAB PO SCH (21:12)
[2018-03-27 21:44] LABS: Barbiturates NEGATIVE (NEGATIVE); Benzodiazepines NEGATIVE (NEGATIVE); Cocaine NEGATIVE (NEGATIVE); METHAMPHETAM NEGATIVE (NEGATIVE); Methadone NEGATIVE (NEGATIVE); Opiates NEGATIVE (NEGATIVE); Phencyclidine NEGATIVE (NEGATIVE); THC Cannibis NEGATIVE (NEGATIVE)
--- NOTE | 2018-03-27 21:51 | P.CNS ---
Date of Consult: 03/27/18 Reason for Consult: Abnormal RFT Chief Complaint: Rehab post Hip fracture History of Present Illness: A 42-year-old female with significant past medical history of alcoholic liver cirrhosis , diabetes complicated with neuropathy, no retinopathy, and hyperlipidemia, pt was admitted for pancreatitis , [facility] complicated by hip fracture , had foot infection started on IV abx pt baseline Cr WNl , cr trend up to 3.1, Bp borderline zosyn changed to merrem , Cr stable now ~1.7 pt transfeered to rehab for continuation of care today fell from bed'no chest pain , palpitation, nausea, vomiting or diarrhea Allergies acetaminophen [From Tylenol] Allergy (Verified 03/24/18 17:25) Nausea/Vomiting Penicillins Allergy (Verified 03/24/18 17:25) Nausea/Vomiting Home Medications: Amitriptyline [Elavil*] 25 mg PO BEDTIME 02/02/18 Fluoxetine HCl [Prozac] 40 mg PO DAILY 02/02/18 Pantoprazole [Protonix Tab*] 40 mg PO [id number] 02/02/18 Gabapentin [Neurontin*] 100 mg PO BID #60 cap 02/06/18 Alendronate Sodium [Fosamax] 70 mg PO EVERY 7TH DAY 02/23/18 Insulin Glargine,Hum.rec.anlog [Maddie Hallman] 25 units SQ DAILY 02/23/18 Iron 325 mg PO BID 02/23/18 - Past Medical/Surgical History Diabetic: Yes -: Diabetes mellitus type 2, insulin dependent -: Tobacco abuse -: Diabetic neuropathy -: Depression -: Insomnia -: neuropathy -: cirrhosis -: Acute Kidney Injury -: Thrombocytopenia -: Pulmonary Edema -: Bilateral lower leg cellulitis -: Bilateral Osteomyelitis -: Cholecystectomy -: Right hip surgery Psychosocial/ Personal History: Patient is . She has 5 children. 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 - Family History Mother Medical History: Heart disease, Diabetes - Social History Smoking Status: Unknown if ever smoked Alcohol use: Yes CD- Drugs: No Caffeine use: Yes Place of Residence: Home Physical Examination Temp Pulse Resp BP Pulse Ox 97.3 F 81 16 149/74 H 99 03/27/18 20:28 03/27/18 20:28 03/27/18 20:28 03/27/18 20:28 03/27/18 20:28 General: Oriented x3 HEENT: Atraumatic Neck: Without JVD or thyroid abnormality Respiratory: Clear to auscultation bilaterally, Normal air movement Cardiovascular: Regular rate/rhythm, Normal S1 S2, Edema Gastrointestinal: Normal bowel sounds, Soft and benign, Distended Laboratory Data (last 24 hrs) 03/27/18 05:40: Sodium 141, Potassium 3.8, BUN 30 H, Creatinine 1.76 H, Glucose 121 H 03/27/18 05:40: WBC 5.2, Hgb 8.2 L, Hct 24.0 L, Plt Count 133 L - Problems (1) CHRISTINE (acute kidney injury) Current Visit: No Status: Acute (2) Anemia Onset Date: 02/04/18 Current Visit: No Status: Chronic (3) Cellulitis in diabetic foot Onset Date: 02/04/18 Current Visit: No Status: Acute (4) Diabetes mellitus, type II Onset Date: 02/04/18 Current Visit: No Status: Chronic Qualifiers: Diabetes mellitus cfo controller insulin use: without prison use Diabetes mellitus complication status: without complication Qualified Code(s): E11.9 - Type 2 diabetes mellitus without complications (5) History of alcohol use Current Visit: No Status: Chronic Conclusions/Impression: Acute kidney injury AIN vs ATN Cr stable now ~1.7 Cont to monitor Monitor vanco level daily Wt I/o will dc alendronate Cirrhosis abd distension now Cont midodrine will increase lasix to 40mg IV bid Anemia BHAVIN and liver cirrhosis completed IV Iron wikll start on KOLBY Osteomyelitis, status post debridement. Dose adjusted. Follow up vancomycin trough. Diabetes as per primary
--- NOTE | 2018-03-28 01:14 | FAST ---
SHIFT START DATE/TIME: 03/27/2018 19:00 (AIR CARRIER INSPECTOR) SHIFT END DATE/TIME: 03/28/2018 07:00 (AIR CARRIER INSPECTOR) NAME DEL JOSUE DATE OF : 1975 DATE OF ADMISSION: 03/24/2018 14:02 (AIR CARRIER INSPECTOR) PHONE: AGE: 42 N# [id number] GENDER: Female ENCOUNTER PHYSICIAN: Dr. Praful Triana M.D. ADMISSION DIAGNOSIS: - Orthopaedic Disorders 08 - Unilateral Hip Fracture (08.11) Right hip comminuted intertrochanteric and subtrochanteric femur fracture. EATING: Activity did not occur on this shift EATING - SCORE: 0-UNK GROOMING: Activity did not occur on this shift GROOMING - SCORE: 0-UNK BATHING: Activity did not occur on this shift BATHING - SCORE: 0-UNK DRESSING - UPPER BODY: Patient is not dressing in public clothing ARTICLES SCORE Total number of steps: 0 DRESSING - UPPER BODY - SCORE: 0-UNK DRESSING - LOWER BODY: Patient is not dressing in public clothing ARTICLES SCORE Total number of steps: 0 DRESSING - LOWER BODY - SCORE: 0-UNK TOILETING: TOILETING - STEP 1: Does the patient require the assistance of a person or device, or need extra time with toileting? Yes . TOILETING - STEP 2: Does the patient require the assistance of a helper? Yes. TOILETING - STEP 3: How much assistance does the patient require from the helper? Hands-on assistance from the helper TOILETING - STEP 4: Of the 3 tasks: 1) Adjusting clothing prior to use, 2) Cleansing of perineal area, 3) Adjusting clot doug after use; How many tasks does the patient perform WITHOUT assistance of the helper? No tasks; h elper performs all three tasks TOILETING - SCORE: 1-DEP BLADDER MANAGEMENT: Aurora removes incontinent device (Depends, pull ups, etc.); cleans the patient after accident / inco ntinent episode; and, applies new incontinent device. BLADDER MANAGEMENT - SCORE: 1-DEP BOWEL MANAGEMENT: Aurora removes incontinent device (depends, pull ups, etc.); cleans the patient after accident / inco ntinent episode; and, applies new device (depends, pull-ups, padding, etc.). BOWEL MANAGEMENT - SCORE: 1-DEP BOWEL MANAGEMENT - FREQUENCY OF ACCIDENTS: BOWEL MANAGEMENT(FA) - STEP 1: How many accidents has the patient had during the current shift? 1 TRANSFERS: BED, CHAIR, WHEELCHAIR: Activity did not occur on this shift TRANSFERS: BED, CHAIR, WHEELCHAIR - SCORE: 0-UNK TRANSFERS: TOILET: Activity did not occur on this shift TRANSFERS: TOILET - SCORE: 0-UNK TRANSFERS: SHOWER: Activity did not occur on this shift TRANSFERS: SHOWER - SCORE: 0-UNK TRANSFERS: TUB: Activity did not occur on this shift TRANSFERS: TUB - SCORE: 0-UNK LOCOMOTION: WALK: Activity did not occur on this shift LOCOMOTION: WALK - SCORE: 0-UNK LOCOMOTION: WHEELCHAIR: Activity did not occur on this shift LOCOMOTION: WHEELCHAIR - SCORE: 0-UNK COMPREHENSION: COMPREHENSION: TYPE: Both COMPREHENSION - STEP 1: Does the patient require help from a person or device, or need extra time to understand complex and a bstract ideas (such as current events, finances, discharge planning, medical issues, relationships, e tc)? No. COMPREHENSION - STEP 2: Does the patient need extra time, require an assistive device (such as glasses for visual comprehensi on or a hearing aid for auditory comprehension) or does s/he have mild difficulty understanding compl ex and abstract information? Yes. COMPREHENSION - SCORE: 6-KENZIE EXPRESSION EXPRESSION: TYPE: Both EXPRESSION - STEP 1: Does the patient require help from a person or device, or need extra time expressing complex and abst ract ideas (such as current events, finances, discharge planning, medical issues, relationships, etc) ? No. EXPRESSION - STEP 2: Does the patient need extra time, require an assistive device (such as augmentive communication syste m or a communication board), OR does s/he have mild difficulty expressing complex and abstract ideas (including mild dysarthria or mild word-find problems)? No. EXPRESSION - SCORE: 7-IND SOCIAL INTERACTION: SOCIAL INTERACTION - STEP 1: Does the patient require a helper to interact with others in social and therapeutic situations? No. SOCIAL INTERACTION - STEP 2: Does the patient need extra time in social situations, OR does s/he interact with staff, other patien ts, and family members ONLY in structured environments, OR does s/he require medication for social in teraction? Yes, patient needs extra time SOCIAL INTERACTION - SCORE: 6-KENZIE PROBLEM SOLVING: PROBLEM SOLVING - STEP 1: Does the patient need help from a person or device, or need extra time to solve complex problems such as managing a checking account or confronting interpersonal problems? No. PROBLEM SOLVING - STEP 2: Does the patient require extra time to make decisions or solve problems, OR does s/he have slight dif ficulty reading, initiating, or self-correcting in unfamiliar situations? Yes, patient needs extra ti me. PROBLEM SOLVING - SCORE: 6-KENZIE MEMORY: MEMORY - STEP 1: Does the patient need help from a person or device, or need extra time to remember frequently encount ered people, daily routines, and executing requests? No. MEMORY - STEP 2: Does the patient have slight difficulty recognizing frequently encountered people, daily routines, or executing requests without the need for repetition or using self-initiated or environmental cues to remember? Yes. MEMORY - SCORE: 6-KENZIE SIGNATURE PANEL: The following modified sections: Eating - Score, Grooming - Score, Dressing - Upper Body - Score, Jens ssing - Lower Body - Score, Toileting - Score, Bladder Management - Score, Bowel Management - Score, Transfers: Bed, Chair, Wheelchair - Score, Transfers: Toilet - Score, Transfers: Shower - Score, Ferrara sfers: Tub - Score, Locomotion: Walk - Score, Locomotion: Wheelchair - Score, Comprehension - Score, Expression - Score, Social Interaction - Score, Problem Solving - Score, Memory - Score were [electro nically] signed by Jami Hilotn CNA on SunMar 28 2018 01:13:46 GMT-0600 (Central Standard Time)
[2018-03-28] MEDS: INSULIN -REGULAR HUMAN 50 UNIT/0.5 ML ML SQ SCH ×4 (06:47→20:00)
[2018-03-28] MEDS: MEDIHONEY 44 ML TOPICAL TUBE TOP SCH (07:07)
[2018-03-28] MEDS: Meropenem 500 MG in NA CHLORIDE 0.9% 100 ML IV SCH ×2 (07:08→19:15)
[2018-03-28] MEDS: INSULIN GLARGINE 100 UNITS/ML SQ SCH (08:24)
[2018-03-28] MEDS: MIDODRINE HCL 5 MG TABLET PO SCH (08:24)
[2018-03-28] MEDS: FLUOXETINE 20 MG CAP PO SCH (08:25)
[2018-03-28] MEDS: FE SULF/FA/VIT B COMP & C TAB PO SCH (08:25)
[2018-03-28] MEDS: PANTOPRAZOLE 40MG TABLET PO SCH (08:25)
[2018-03-28] MEDS: PROMOD 30 ML DOSE PO SCH ×2 (08:25→19:14)
[2018-03-28] MEDS: FLUCONAZOLE 100 MG TAB PO SCH (08:25)
[2018-03-28] MEDS: FERROUS SULFATE 325 MG TAB PO SCH ×2 (08:25→19:15)
[2018-03-28] MEDS: HYDROCODONE/APAP 5/325 MG TAB PO PRN ×2 (08:25→17:04)
[2018-03-28] MEDS: GABAPENTIN 300 MG CAP PO SCH ×2 (08:25→19:15)
[2018-03-28] MEDS: FUROSEMIDE 40 MG TABLET PO SCH ×2 (08:32→17:04)
[2018-03-28] MEDS: LOPERAMIDE HCL 2 MG CAPSULE PO PRN (13:44)
--- NOTE | 2018-03-28 14:17 | RAD REPORT ---
EXAM DESCRIPTION: RAD - Femur Right - 03/28/2018 2:04 pm CLINICAL HISTORY: Leg pain FINDINGS: Compression screws and intramedullary ejnny affix a subacute fracture of the proximal femur. Fracture fragments are by approximately 5 millimeters. Distal end of the intramedullary jenny is in position.
--- NOTE | 2018-03-28 15:27 | FAST ---
ENCOUNTER DATE AND TIME: 03/28/2018 08:00 (EQUIPMENT OPERATOR) NAME DEL JOSUE DATE OF : 1975 DATE OF ADMISSION: 03/24/2018 14:02 (EQUIPMENT OPERATOR) PHONE: AGE: 42 SSN# [id number] GENDER: Female ENCOUNTER PHYSICIAN: Dr. Praful Triana M.D. ADMISSION DIAGNOSIS: - Orthopaedic Disorders 08 - Unilateral Hip Fracture (08.11) Right hip comminuted intertrochanteric and subtrochanteric femur fracture. EATING: Activity did not occur on this shift EATING - SCORE: 0-UNK GROOMING: Activity did not occur on this shift GROOMING - SCORE: 0-UNK BATHING: Activity did not occur on this shift BATHING - SCORE: 0-UNK DRESSING - UPPER BODY: Activity did not occur on this shift Patient is not dressing in public clothing ARTICLES SCORE Total number of steps: 0 DRESSING - UPPER BODY - SCORE: 0-UNK DRESSING - LOWER BODY: Activity did not occur on this shift Patient is not dressing in public clothing ARTICLES SCORE Total number of steps: 0 DRESSING - LOWER BODY - SCORE: 0-UNK TOILETING: Activity did not occur on this shift TOILETING - SCORE: 0-UNK BLADDER MANAGEMENT: Activity did not occur on this shift BLADDER MANAGEMENT - SCORE: 7-IND BOWEL MANAGEMENT: Activity did not occur on this shift BOWEL MANAGEMENT - SCORE: 7-IND TRANSFERS: BED, CHAIR, WHEELCHAIR: Activity did not occur on this shift TRANSFERS: BED, CHAIR, WHEELCHAIR - SCORE: 0-UNK TRANSFERS: TOILET: Activity did not occur on this shift TRANSFERS: TOILET - SCORE: 0-UNK TRANSFERS: SHOWER: Activity did not occur on this shift TRANSFERS: SHOWER - SCORE: 0-UNK TRANSFERS: TUB: Activity did not occur on this shift TRANSFERS: TUB - SCORE: 0-UNK LOCOMOTION: WALK: Activity did not occur on this shift LOCOMOTION: WALK - SCORE: 0-UNK LOCOMOTION: WHEELCHAIR: Activity did not occur on this shift LOCOMOTION: WHEELCHAIR - SCORE: 0-UNK LOCOMOTION: STAIRS: Activity did not occur on this shift LOCOMOTION: STAIRS - SCORE: 0-UNK COMPREHENSION: COMPREHENSION - SCORE: 0-UNK EXPRESSION EXPRESSION - SCORE: 0-UNK SOCIAL INTERACTION: SOCIAL INTERACTION - SCORE: 0-UNK PROBLEM SOLVING: PROBLEM SOLVING - SCORE: 0-UNK MEMORY: MEMORY - SCORE: 0-UNK SIGNATURE PANEL: The following modified sections: Transfers: Bed, Chair, Wheelchair - Score, Transfers: Toilet - Score , Locomotion: Walk - Score, Locomotion: Wheelchair - Score, Locomotion: Stairs - Score were [electron ically] signed by Gael Rosas PT on SunMar 28 2018 15:27:19 GMT-0600 (Central Standard Time)
--- NOTE | 2018-03-28 16:13 | FAST ---
SHIFT START DATE/TIME: 03/28/2018 07:00 (PHYSICIAN [facility]) SHIFT END DATE/TIME: 03/28/2018 19:00 (PHYSICIAN [facility]) NAME DEL JOSUE DATE OF : 1975 DATE OF ADMISSION: 03/24/2018 14:02 (PHYSICIAN [facility]) PHONE: AGE: 42 N# [id number] GENDER: Female ENCOUNTER PHYSICIAN: Dr. Praful Triana M.D. ADMISSION DIAGNOSIS: - Orthopaedic Disorders 08 - Unilateral Hip Fracture (08.11) Right hip comminuted intertrochanteric and subtrochanteric femur fracture. EATING: EATING - STEP 1: Does the patient require the assistance of a person or device, or need extra time when eating? Yes. EATING - STEP 2: Does the patient require the assistance of a helper? No, patient only requires an assistive device, O R s/he takes more than reasonable time to eat, OR there is a safety concern, OR s/he requires modifie d food consistency EATING - SCORE: 6-KENZIE GROOMING: Activity did not occur on this shift GROOMING - SCORE: 0-UNK BATHING: Activity did not occur on this shift BATHING - SCORE: 0-UNK DRESSING - UPPER BODY: T-shirt/pullover shirt (four steps) ARTICLES SCORE Total number of steps: 4 DRESSING - UPPER BODY - STEP 1: Does the patient require help from a person or device, or need extra time when dressing above the jaylen st? Yes. DRESSING - UPPER BODY - STEP 2: Does the patient require the assistance of a helper? No. Patient only requires an assistive device, s uch as a button hook, velcro, or silk top hat body maker. OR s/he takes more than reasonable time as s/he dresses the upper body. OR there is a concern for safety when s/he dresses the upper body DRESSING - UPPER BODY - SCORE: 6-KENZIE DRESSING - LOWER BODY: Elastic waist pants (three steps) ARTICLES SCORE Total number of steps: 3 DRESSING - LOWER BODY - STEP 1: Does the patient require help from a person or device, or need extra time when dressing below the jaylen st? Yes. DRESSING - LOWER BODY - STEP 2: Does the patient require the assistance of a helper? Yes. DRESSING - LOWER BODY - STEP 3: Does the helper touch the patient while dressing? No. DRESSING - LOWER BODY - SCORE: 5-SUP DRESSING - LOWER BODY - COMMENTS: Pt needed help threading cole cather through her clothes TOILETING: Activity did not occur on this shift TOILETING - SCORE: 0-UNK TOILETING - COMMENTS: Pt has cole today BLADDER MANAGEMENT: [facility] cares for cole catheter including emptying drainage bag. BLADDER MANAGEMENT - SCORE: 1-DEP BLADDER MANAGEMENT - FREQUENCY OF ACCIDENTS: BLADDER MANAGEMENT(FA) - STEP 1: How many accidents has the patient had during the current shift? 0 BOWEL MANAGEMENT: [facility] removes incontinent device (depends, pull ups, etc.); cleans the patient after accident / inco ntinent episode; and, applies new device (depends, pull-ups, padding, etc.). BOWEL MANAGEMENT - SCORE: 1-DEP BOWEL MANAGEMENT - FREQUENCY OF ACCIDENTS: BOWEL MANAGEMENT(FA) - STEP 1: How many accidents has the patient had during the current shift? 3 TRANSFERS: BED, CHAIR, WHEELCHAIR: TRANSFERS: BED, CHAIR, WHEELCHAIR - STEP 1: Does the patient require assistance of a person or device, or need extra time with bed, chair, or whe elchair transfers? Yes. TRANSFERS: BED, CHAIR, WHEELCHAIR - STEP 2: Does the patient require the assistance of a helper? Yes. TRANSFERS: BED, CHAIR, WHEELCHAIR - STEP 3: How much assistance does the patient require from the helper? Only supervision TRANSFERS: BED, CHAIR, WHEELCHAIR - SCORE: 5-SUP TRANSFERS: TOILET: Activity did not occur on this shift TRANSFERS: TOILET - SCORE: 0-UNK TRANSFERS: SHOWER: Activity did not occur on this shift TRANSFERS: SHOWER - SCORE: 0-UNK TRANSFERS: TUB: Activity did not occur on this shift TRANSFERS: TUB - SCORE: 0-UNK LOCOMOTION: WALK: Activity did not occur on this shift LOCOMOTION: WALK - SCORE: 0-UNK LOCOMOTION: WHEELCHAIR: Activity did not occur on this shift LOCOMOTION: WHEELCHAIR - SCORE: 0-UNK COMPREHENSION: COMPREHENSION: TYPE: Both COMPREHENSION - STEP 1: Does the patient require help from a person or device, or need extra time to understand complex and a bstract ideas (such as current events, finances, discharge planning, medical issues, relationships, e tc)? No. COMPREHENSION - STEP 2: Does the patient need extra time, require an assistive device (such as glasses for visual comprehensi on or a hearing aid for auditory comprehension) or does s/he have mild difficulty understanding compl ex and abstract information? Yes. COMPREHENSION - SCORE: 6-KENZIE EXPRESSION EXPRESSION: TYPE: Both EXPRESSION - STEP 1: Does the patient require help from a person or device, or need extra time expressing complex and abst ract ideas (such as current events, finances, discharge planning, medical issues, relationships, etc) ? No. EXPRESSION - STEP 2: Does the patient need extra time, require an assistive device (such as augmentive communication syste m or a communication board), OR does s/he have mild difficulty expressing complex and abstract ideas (including mild dysarthria or mild word-find problems)? No. EXPRESSION - SCORE: 7-IND SOCIAL INTERACTION: SOCIAL INTERACTION - STEP 1: Does the patient require a helper to interact with others in social and therapeutic situations? No. SOCIAL INTERACTION - STEP 2: Does the patient need extra time in social situations, OR does s/he interact with staff, other patien ts, and family members ONLY in structured environments, OR does s/he require medication for social in teraction? No. SOCIAL INTERACTION - SCORE: 7-IND PROBLEM SOLVING: PROBLEM SOLVING - STEP 1: Does the patient need help from a person or device, or need extra time to solve complex problems such as managing a checking account or confronting interpersonal problems? No. PROBLEM SOLVING - STEP 2: Does the patient require extra time to make decisions or solve problems, OR does s/he have slight dif ficulty reading, initiating, or self-correcting in unfamiliar situations? No. PROBLEM SOLVING - SCORE: 7-IND MEMORY: MEMORY - STEP 1: Does the patient need help from a person or device, or need extra time to remember frequently encount ered people, daily routines, and executing requests? No. MEMORY - STEP 2: Does the patient have slight difficulty recognizing frequently encountered people, daily routines, or executing requests without the need for repetition or using self-initiated or environmental cues to remember? No. MEMORY - SCORE: 7-IND SIGNATURE PANEL: The following modified sections: Eating - Score, Grooming - Score, Bathing - Score, Dressing - Upper Body - Score, Dressing - Lower Body - Score, Dressing - Lower Body - Comments:, Toileting - Score, To ileting - Comments:, Bladder Management - Score, Bowel Management - Score, Transfers: Bed, Chair, Whe elchair - Score, Transfers: Toilet - Score, Transfers: Shower - Score, Transfers: Tub - Score, Locomo tion: Walk - Score, Locomotion: Wheelchair - Score, Comprehension - Score, Expression - Score, Social Interaction - Score, Problem Solving - Score, Memory - Score were [electronically] signed by Darlene Villalta [email or web address] on SunMar 28 2018 16:12:54 GMT-0600 (Central Standard Time)
[2018-03-28] MEDS: AMITRIPTYLINE 25 MG TAB PO SCH (20:06)
[2018-03-28] MEDS: VANCOMYCIN/NS 1 gm 1 GM/250 ML BAG IVPB SCH (21:09)
--- NOTE | 2018-03-29 01:25 | FAST ---
SHIFT START DATE/TIME: 03/28/2018 19:00 (CHASER HELPER) SHIFT END DATE/TIME: 03/29/2018 07:00 (CHASER HELPER) NAME DEL JOSUE DATE OF : 1975 DATE OF ADMISSION: 03/24/2018 14:02 (CHASER HELPER) PHONE: AGE: 42 N# [id number] GENDER: Female ENCOUNTER PHYSICIAN: Dr. Praful Triana M.D. ADMISSION DIAGNOSIS: - Orthopaedic Disorders 08 - Unilateral Hip Fracture (08.11) Right hip comminuted intertrochanteric and subtrochanteric femur fracture. EATING: Activity did not occur on this shift EATING - SCORE: 0-UNK GROOMING: Wash, rinse, and dry hands GROOMING - STEP 1: Does the patient require the assistance of a person or device, or need extra time when grooming? Yes. GROOMING - STEP 2: Does the patient require the assistance of a helper? No. The patient only requires an assistive devic e, OR takes more than reasonable time to groom, OR there is a concern for safety as the patient groom s GROOMING - SCORE: 6-KENZIE BATHING: Activity did not occur on this shift BATHING - SCORE: 0-UNK DRESSING - UPPER BODY: Patient is not dressing in public clothing ARTICLES SCORE Total number of steps: 0 DRESSING - UPPER BODY - SCORE: 0-UNK DRESSING - LOWER BODY: Patient is not dressing in public clothing ARTICLES SCORE Total number of steps: 0 DRESSING - LOWER BODY - SCORE: 0-UNK TOILETING: TOILETING - STEP 1: Does the patient require the assistance of a person or device, or need extra time with toileting? Yes . TOILETING - STEP 2: Does the patient require the assistance of a helper? Yes. TOILETING - STEP 3: How much assistance does the patient require from the helper? Hands-on assistance from the helper TOILETING - STEP 4: Of the 3 tasks: 1) Adjusting clothing prior to use, 2) Cleansing of perineal area, 3) Adjusting clot doug after use; How many tasks does the patient perform WITHOUT assistance of the helper? Three tasks with steadying assistance from the helper TOILETING - SCORE: 4-MIN BLADDER MANAGEMENT: BLADDER MANAGEMENT - STEP 1: Does the patient control the bladder completely and intentionally without equipment or devices or med ications, and is always continent? No. BLADDER MANAGEMENT - STEP 2: Does the patient require the assistance of a helper? No, patient only requires extra time BLADDER MANAGEMENT - SCORE: 6-KENZIE BOWEL MANAGEMENT: Activity did not occur on this shift BOWEL MANAGEMENT - SCORE: 7-IND TRANSFERS: BED, CHAIR, WHEELCHAIR: TRANSFERS: BED, CHAIR, WHEELCHAIR - STEP 1: Does the patient require assistance of a person or device, or need extra time with bed, chair, or whe elchair transfers? Yes. TRANSFERS: BED, CHAIR, WHEELCHAIR - STEP 2: Does the patient require the assistance of a helper? Yes. TRANSFERS: BED, CHAIR, WHEELCHAIR - STEP 3: How much assistance does the patient require from the helper? Steadying/guiding assistance TRANSFERS: BED, CHAIR, WHEELCHAIR - SCORE: 4-MIN TRANSFERS: TOILET: TRANSFERS: TOILET - STEP 1: Does the patient require the assistance of a person or device, or need extra time with toilet transfe rs? Yes. TRANSFERS: TOILET - STEP 2: Does the patient require the assistance of a helper? Yes. TRANSFERS: TOILET - STEP 3: How much assistance does the patient require from the helper? Only supervision, cuing, coaxing, OR he lp to set out transfer equipment or to lock brakes and/or lift foot rests TRANSFERS: TOILET - SCORE: 5-SUP TRANSFERS: SHOWER: Activity did not occur on this shift TRANSFERS: SHOWER - SCORE: 0-UNK TRANSFERS: TUB: Activity did not occur on this shift TRANSFERS: TUB - SCORE: 0-UNK LOCOMOTION: WALK: Activity did not occur on this shift LOCOMOTION: WALK - SCORE: 0-UNK LOCOMOTION: WHEELCHAIR: Activity did not occur on this shift LOCOMOTION: WHEELCHAIR - SCORE: 0-UNK COMPREHENSION: COMPREHENSION: TYPE: Both COMPREHENSION - STEP 1: Does the patient require help from a person or device, or need extra time to understand complex and a bstract ideas (such as current events, finances, discharge planning, medical issues, relationships, e tc)? No. COMPREHENSION - STEP 2: Does the patient need extra time, require an assistive device (such as glasses for visual comprehensi on or a hearing aid for auditory comprehension) or does s/he have mild difficulty understanding compl ex and abstract information? Yes. COMPREHENSION - SCORE: 6-KENZIE EXPRESSION EXPRESSION: TYPE: Both EXPRESSION - STEP 1: Does the patient require help from a person or device, or need extra time expressing complex and abst ract ideas (such as current events, finances, discharge planning, medical issues, relationships, etc) ? No. EXPRESSION - STEP 2: Does the patient need extra time, require an assistive device (such as augmentive communication syste m or a communication board), OR does s/he have mild difficulty expressing complex and abstract ideas (including mild dysarthria or mild word-find problems)? No. EXPRESSION - SCORE: 7-IND SOCIAL INTERACTION: SOCIAL INTERACTION - STEP 1: Does the patient require a helper to interact with others in social and therapeutic situations? No. SOCIAL INTERACTION - STEP 2: Does the patient need extra time in social situations, OR does s/he interact with staff, other patien ts, and family members ONLY in structured environments, OR does s/he require medication for social in teraction? Yes, patient needs extra time SOCIAL INTERACTION - SCORE: 6-KENZIE PROBLEM SOLVING: PROBLEM SOLVING - STEP 1: Does the patient need help from a person or device, or need extra time to solve complex problems such as managing a checking account or confronting interpersonal problems? No. PROBLEM SOLVING - STEP 2: Does the patient require extra time to make decisions or solve problems, OR does s/he have slight dif ficulty reading, initiating, or self-correcting in unfamiliar situations? Yes, patient needs extra ti me. PROBLEM SOLVING - SCORE: 6-KENZIE MEMORY: MEMORY - STEP 1: Does the patient need help from a person or device, or need extra time to remember frequently encount ered people, daily routines, and executing requests? No. MEMORY - STEP 2: Does the patient have slight difficulty recognizing frequently encountered people, daily routines, or executing requests without the need for repetition or using self-initiated or environmental cues to remember? Yes. MEMORY - SCORE: 6-KENZIE SIGNATURE PANEL: The following modified sections: Eating - Score, Grooming - Score, Dressing - Upper Body - Score, Jens ssing - Lower Body - Score, Toileting - Score, Bladder Management - Score, Bowel Management - Score, Transfers: Bed, Chair, Wheelchair - Score, Transfers: Toilet - Score, Transfers: Shower - Score, Ferrara sfers: Tub - Score, Locomotion: Walk - Score, Locomotion: Wheelchair - Score, Comprehension - Score, Expression - Score, Social Interaction - Score, Problem Solving - Score, Memory - Score were [electro nically] signed by Jami Hilton CNA on SunMar 29 2018 01:24:16 GMT-0600 (Central Standard Time)
--- NOTE | 2018-03-29 02:38 | PN ---
Date of Progress Note: 03/28/2018 Chief Complaint: Zgxkh-[id number]-jjtdldu kidney injury. 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 She developed hip fracture. She is undergoing physical therapy. Review of Systems: Denies fever or chills. Physical Examination: Lungs: Clear to auscultation bilaterally. Heart: S1 and S2. Abdomen: Soft and benign. Extremities: Slight edema. Laboratory Data: Sodium 141, potassium 3.8, BUN 30, and creatinine 1.76. Hemoglobin 8.2. Impression And Plan: 1. Daiph-dq-tlrukey kidney injury, multifactorial. The patient developed nonoliguric acute tubular necrosis. Renal function is somewhat improving gradually. Avoid nephrotoxic medication. 2. Anemia, chronic. There is no evidence of bleeding. Monitor hemoglobin level. 3. Diabetes mellitus. Continue insulin. 4. History of alcohol use. Further recommendation as far as the liver disease by primary team. FABRICE/URBANO Voice ID: [id number] Report ID: [id number] ANTONIETA
[2018-03-29] MEDS: HYDROCODONE/APAP 5/325 MG TAB PO PRN ×3 (03:13→21:03)
--- NOTE | 2018-03-29 04:23 | CON ---
Date of Consultation: 03/28/2018 REHAB CONSULTATION I have seen this patient in the past as an inpatient. She has undergone intramedullary jenny fixation for a highly displaced subtrochanteric femur fracture. Apparently, she was lowered to the floor. Shelia ramirez says she does not have any increase in pain. However, they x-rayed her hip, which demonstrated per haps slight widening of the fracture site as compared to intraoperative views. I do not really think that they are widened and it is most likely secondary to some early healing and resorption making th e fracture more visible. I do not see any other fracture line. It appears to be well aligned althou gh definitely fracture gap still remains. The remainder of the femur has not been x-rayed but she de nies any distal pain. At this time, I think they can go head and get x-rays of the entire femur to e nsure there is no crack or problems at the distal aspect. Otherwise, this is without visible signs o f fracture. She should continue along rehab being touchdown weightbearing. CASSIA Voice ID: [id number] Report ID: [id number]
[2018-03-29] MEDS: Meropenem 500 MG in NA CHLORIDE 0.9% 100 ML IV SCH ×2 (07:07→20:55)
[2018-03-29] MEDS: INSULIN -REGULAR HUMAN 50 UNIT/0.5 ML ML SQ SCH ×4 (07:16→20:56)
[2018-03-29] MEDS: PANTOPRAZOLE 40MG TABLET PO SCH (07:17)
[2018-03-29] MEDS: INSULIN GLARGINE 100 UNITS/ML SQ SCH (07:17)
[2018-03-29] MEDS: MEDIHONEY 44 ML TOPICAL TUBE TOP SCH (08:00)
[2018-03-29] MEDS: FE SULF/FA/VIT B COMP & C TAB PO SCH (08:00)
[2018-03-29] MEDS: FERROUS SULFATE 325 MG TAB PO SCH ×2 (08:00→20:56)
[2018-03-29] MEDS: FLUOXETINE 20 MG CAP PO SCH (08:00)
[2018-03-29] MEDS: GABAPENTIN 300 MG CAP PO SCH ×2 (08:00→20:56)
[2018-03-29] MEDS: FLUCONAZOLE 100 MG TAB PO SCH (08:00)
[2018-03-29] MEDS: FUROSEMIDE 40 MG TABLET PO SCH ×2 (08:01→16:50)
[2018-03-29] MEDS: MIDODRINE HCL 5 MG TABLET PO SCH (08:01)
[2018-03-29] MEDS: PROMOD 30 ML DOSE PO SCH ×2 (08:01→20:56)
[2018-03-29] MEDS: LOPERAMIDE HCL 2 MG CAPSULE PO PRN (08:04)
--- NOTE | 2018-03-29 14:03 | FAST ---
SHIFT START DATE/TIME: 03/29/2018 07:00 (MOLD SHOP SUPERVISOR) SHIFT END DATE/TIME: 03/29/2018 19:00 (MOLD SHOP SUPERVISOR) NAME DEL JOSUE DATE OF : 1975 DATE OF ADMISSION: 03/24/2018 14:02 (MOLD SHOP SUPERVISOR) PHONE: AGE: 42 N# [id number] GENDER: Female ENCOUNTER PHYSICIAN: Dr. Praful Triana M.D. ADMISSION DIAGNOSIS: - Orthopaedic Disorders 08 - Unilateral Hip Fracture (08.11) Right hip comminuted intertrochanteric and subtrochanteric femur fracture. EATING: EATING - STEP 1: Does the patient require the assistance of a person or device, or need extra time when eating? Yes. EATING - STEP 2: Does the patient require the assistance of a helper? No, patient only requires an assistive device, O R s/he takes more than reasonable time to eat, OR there is a safety concern, OR s/he requires modifie d food consistency EATING - SCORE: 6-KENZIE GROOMING: GROOMING - STEP 1: Does the patient require the assistance of a person or device, or need extra time when grooming? Yes. GROOMING - STEP 2: Does the patient require the assistance of a helper? No. The patient only requires an assistive devic e, OR takes more than reasonable time to groom, OR there is a concern for safety as the patient groom s GROOMING - SCORE: 6-KENZIE BATHING: Activity did not occur on this shift BATHING - SCORE: 0-UNK DRESSING - UPPER BODY: T-shirt/pullover shirt (four steps) ARTICLES SCORE Total number of steps: 4 DRESSING - UPPER BODY - STEP 1: Does the patient require help from a person or device, or need extra time when dressing above the j[address]len st? Yes. DRESSING - UPPER BODY - STEP 2: Does the patient require the assistance of a helper? No. Patient only requires an assistive device, s uch as a button hook, velcro, or toll test worker. OR s/he takes more than reasonable time as s/he dresses the upper body. OR there is a concern for safety when s/he dresses the upper body DRESSING - UPPER BODY - SCORE: 6-KENZIE DRESSING - LOWER BODY: Elastic waist pants (three steps) Slip-on shoe - Left foot (one step) Slip-on shoe - Right foot (one step) Underwear (three steps) ARTICLES SCORE Total number of steps: 8 DRESSING - LOWER BODY - STEP 1: Does the patient require help from a person or device, or need extra time when dressing below the jaylen st? Yes. DRESSING - LOWER BODY - STEP 2: Does the patient require the assistance of a helper? No. Patient requires an assistive device such as a toll test worker. OR s/he takes more than reasonable time as s/he dresses the lower body, OR there is a con cern for safety when s/he dresses the lower body DRESSING - LOWER BODY - SCORE: 6-KENZIE TOILETING: TOILETING - STEP 1: Does the patient require the assistance of a person or device, or need extra time with toileting? Yes . TOILETING - STEP 2: Does the patient require the assistance of a helper? Yes. TOILETING - STEP 3: How much assistance does the patient require from the helper? Only supervision TOILETING - SCORE: 5-SUP BLADDER MANAGEMENT: BLADDER MANAGEMENT - STEP 1: Does the patient control the bladder completely and intentionally without equipment or devices or med ications, and is always continent? No. BLADDER MANAGEMENT - STEP 2: Does the patient require the assistance of a helper? Yes. BLADDER MANAGEMENT - STEP 3: How much assistance does the patient require from the helper? Only supervision, stand-by, cuing, or c oaxing BLADDER MANAGEMENT - SCORE: 5-SUP BLADDER MANAGEMENT - FREQUENCY OF ACCIDENTS: BLADDER MANAGEMENT(FA) - STEP 1: How many accidents has the patient had during the current shift? 0 BOWEL MANAGEMENT: BOWEL MANAGEMENT - STEP 1: Does the patient control bowels completely and intentionally without equipment devices or medications AND is always continent? No. BOWEL MANAGEMENT - STEP 2: Does the patient require the assistance of a helper? No, patient requires medication for control such as stool softeners, suppositories, laxatives, enemas, or OTC medications BOWEL MANAGEMENT - SCORE: 6-KENZIE BOWEL MANAGEMENT - FREQUENCY OF ACCIDENTS: BOWEL MANAGEMENT(FA) - STEP 1: How many accidents has the patient had during the current shift? 0 TRANSFERS: BED, CHAIR, WHEELCHAIR: TRANSFERS: BED, CHAIR, WHEELCHAIR - STEP 1: Does the patient require assistance of a person or device, or need extra time with bed, chair, or whe elchair transfers? Yes. TRANSFERS: BED, CHAIR, WHEELCHAIR - STEP 2: Does the patient require the assistance of a helper? Yes. TRANSFERS: BED, CHAIR, WHEELCHAIR - STEP 3: How much assistance does the patient require from the helper? Only supervision TRANSFERS: BED, CHAIR, WHEELCHAIR - SCORE: 5-SUP TRANSFERS: TOILET: TRANSFERS: TOILET - STEP 1: Does the patient require the assistance of a person or device, or need extra time with toilet transfe rs? Yes. TRANSFERS: TOILET - STEP 2: Does the patient require the assistance of a helper? Yes. TRANSFERS: TOILET - STEP 3: How much assistance does the patient require from the helper? Only supervision, cuing, coaxing, OR he lp to set out transfer equipment or to lock brakes and/or lift foot rests TRANSFERS: TOILET - SCORE: 5-SUP TRANSFERS: SHOWER: Activity did not occur on this shift TRANSFERS: SHOWER - SCORE: 0-UNK TRANSFERS: TUB: Activity did not occur on this shift TRANSFERS: TUB - SCORE: 0-UNK LOCOMOTION: WALK: Activity did not occur on this shift LOCOMOTION: WALK - SCORE: 0-UNK LOCOMOTION: WHEELCHAIR: Activity did not occur on this shift LOCOMOTION: WHEELCHAIR - SCORE: 0-UNK COMPREHENSION: COMPREHENSION: TYPE: Both COMPREHENSION - STEP 1: Does the patient require help from a person or device, or need extra time to understand complex and a bstract ideas (such as current events, finances, discharge planning, medical issues, relationships, e tc)? No. COMPREHENSION - STEP 2: Does the patient need extra time, require an assistive device (such as glasses for visual comprehensi on or a hearing aid for auditory comprehension) or does s/he have mild difficulty understanding compl ex and abstract information? Yes. COMPREHENSION - SCORE: 6-KENZIE EXPRESSION EXPRESSION: TYPE: Both EXPRESSION - STEP 1: Does the patient require help from a person or device, or need extra time expressing complex and abst ract ideas (such as current events, finances, discharge planning, medical issues, relationships, etc) ? No. EXPRESSION - STEP 2: Does the patient need extra time, require an assistive device (such as augmentive communication syste m or a communication board), OR does s/he have mild difficulty expressing complex and abstract ideas (including mild dysarthria or mild word-find problems)? No. EXPRESSION - SCORE: 7-IND SOCIAL INTERACTION: SOCIAL INTERACTION - STEP 1: Does the patient require a helper to interact with others in social and therapeutic situations? No. SOCIAL INTERACTION - STEP 2: Does the patient need extra time in social situations, OR does s/he interact with staff, other patien ts, and family members ONLY in structured environments, OR does s/he require medication for social in teraction? No. SOCIAL INTERACTION - SCORE: 7-IND PROBLEM SOLVING: PROBLEM SOLVING - STEP 1: Does the patient need help from a person or device, or need extra time to solve complex problems such as managing a checking account or confronting interpersonal problems? No. PROBLEM SOLVING - STEP 2: Does the patient require extra time to make decisions or solve problems, OR does s/he have slight dif ficulty reading, initiating, or self-correcting in unfamiliar situations? No. PROBLEM SOLVING - SCORE: 7-IND MEMORY: MEMORY - STEP 1: Does the patient need help from a person or device, or need extra time to remember frequently encount ered people, daily routines, and executing requests? No. MEMORY - STEP 2: Does the patient have slight difficulty recognizing frequently encountered people, daily routines, or executing requests without the need for repetition or using self-initiated or environmental cues to remember? No. MEMORY - SCORE: 7-IND SIGNATURE PANEL: The following modified sections: Eating - Score, Grooming - Score, Bathing - Score, Dressing - Upper Body - Score, Dressing - Lower Body - Score, Toileting - Score, Bladder Management - Score, Bowel Man agement - Score, Transfers: Bed, Chair, Wheelchair - Score, Transfers: Toilet - Score, Transfers: Radha wer - Score, Transfers: Tub - Score, Locomotion: Walk - Score, Locomotion: Wheelchair - Score, Compre hension - Score, Expression - Score, Social Interaction - Score, Problem Solving - Score, Memory - Sc ore were [electronically] signed by Darlene Mobley C.N.A. on SunMar 29 2018 14:02:15 GMT-0600 ([place] Standard Time)
--- NOTE | 2018-03-29 14:09 | P.PN ---
Subjective Date of Service: 03/29/18 Primary Care Provider: RITA Huff Chief Complaint: Rehab post Hip fracture Subjective: Doing well Physical Examination - Vital Signs Temperature: 96.9 F Blood Pressure: 99/61 Pulse: 78 Respirations: 16 Pulse Ox (%): 93 - Physical Exam General: Alert, In no apparent distress, Cooperative HEENT: Atraumatic Neck: Supple Respiratory: Clear to auscultation bilaterally, Normal air movement Cardiovascular: Normal pulses, Regular rate/rhythm Gastrointestinal: Normal bowel sounds, Non-distended - Studies Microbiology Data (last 24 hrs): 03/27/18 21:10 Stool Clostridium difficile Toxin Assay - Final Medications List Reviewed: Yes Assessment & Plan Discharge Plan: Home Plan to discharge in: Greater than 2 days Physician Review Additional Text: Impression: Bilateral cellulitis to the lower extremity with noted moderate osteomyelitis to the base of the proximal right phalanx on the 5th toe, medial aspect of the 5th metatarsal head, and the majority of the 4th metatarsal head along with moderate osteomyelitis with underlying fracture of the left proximal phalanx of the 5th toe, currently on antibiotic therapy IV Recent fall with right femoral fracture status post repair Chronic renal failure stage 4 Orthostatic hypotension currently on midodrine Chronic alcoholic cirrhosis Diabetes mellitus type 2, insulin dependent Oral candidiasis Peripheral vascular disease Depression with anxiety Diabetic neuropathy Thrombocytopenia likely related to alcoholic cirrhosis Tobacco abuse Anemia likely of chronic disease Plan: Continue IV antibiotic therapy. Pharmacy is monitoring and adjusting medication. Patient overall stable. Patient working with physical therapy. Patient reports that the plan dated discharge is April 07. Fall precautions in place. Medications reviewed. Overall stable. Time Spent Managing Pts Care (In Minutes): 25
--- NOTE | 2018-03-29 18:30 | R.PN ---
ENCOUNTER DATE AND TIME: 03/29/2018 18:26 (DIRECTOR VETERINARY) NAME DEL YORK DATE OF : 1975 DATE OF ADMISSION: 03/24/2018 14:02 (DIRECTOR VETERINARY) Right hip comminuted intertrochanteric and subtrochanteric femur fractureCHIEF COMPLAINT: Right hip fracture SUBJECTIVE: Pt denied any depression. Pt denied any Shortness of Breath. Ms. York reported more right hip pain at her morning team meeting after a 12-hour visit home yeste rday on 03-26-18. She denied any unusual or unexpected activity while out on community reintegration. She also had a fall while in the rest room today. No reported injury to the hip. Ordered right hip x -rays showed no new fracture but possible slight widening or movement along the primary fracture plan e. Dr. Keller will be notified. Her pain is managed with Saltese, tramadol and gabapentin. She is doing well and has no new complaints. She appeared mildly drowsy earlier this afternoon but is her normal self at this time. Will followup on drug screen and blood work. Oxygenation, vital signs and blood sugars are normal. VITAL SIGNS Temperature: 97.6 F SBP/DBP: 108/52 Pulse: 79 Resp: 16 MEDICATION ALLERGIES: acetaminophen PENICILLINS ENVIRONMENTAL ALLERGIES: - Substance Allergies None Known - Other Allergies None Known NURSING: - Shower allowing shower - Skin care per protocol PRECAUTIONS: - Posterior Hip Precaution No adduction across midline No external rotation No hip flexion >90 degrees No internal rotation No wheel chair propulsion - Weight Bearing Precaution TTWB right LE ACTIVITIES OOB only with supervision THERAPIES: - Occupational Therapy Evaluate and Treat. - Physical Therapy Evaluate and Treat. PHYSICAL EXAM - Gen Alert and awake Lying in bed No apparent distress Oriented to: person, time, and place - Skin No breakdowns No abnormalities - Eyes No abnormalities - ENMT No abnormalities - Neck No abnormalities - CVS RRR - Chest No abnormalities - Resp Clear to auscultation - Abd + bowel sounds - GI Soft Deferred - No abnormalities - Ext Moderate edema in both lower extremities. - MSK 4+/5 weakness in both lower extremities. - Neuro No focal deficits - Psych No abnormalities ASSESSMENT: Pt. is a 42 yo Right-handed female.On 03/04/2018 she was admitted to [facility] and underwent emergency surgery for Right hip comminuted intertrochanteric and subtrochante david femur fracture (Unilateral Hip Fracture) by Zara Morris.Pre-morbidly, Pt. was independent/mod- I in Communication, Social Cognition, Self-Care, Sphincter Control, Transfers Control, and Locomotion ; and she had good Sphincter Control.Currently, she has deficits of Communication, Social Cognition, Balance, Endurance, Safety Awareness, Transfers Control, Locomotion, and Self-Care.Pt. is now referre d to [facility] for acute in-patient rehabilitation in order to maximize patie nt's functional independence in activities of daily living, strength, ROM, and mobility.- Rehab Goal Patient has realistic goal of being discharged at assistance level 3-modA to reside at Home with Fam riaz/Relatives. MDM/PLAN: - Physical Therapy Decreased range of motion - to improve, our physical therapists will perform initial evaluation of p t's status upon admission and devise an individualized program for increasing patient's Range of Alvino on. Gait dysfunction - to improve, our physical therapists will perform initial evaluation of pt's statu s upon admission and devise an individualized program for Gait Training, and Wheel Chair mobility Inability to transfer - to improve, our physical therapists will perform initial evaluation of pt's status upon admission and devise an individualized program for Bed mobility Need for home safety evaluation - to improve, our physical therapists will perform initial evaluatio n of pt's status upon admission and devise an individualized program for Home Evaluation Need in caregiver upon discharge - to improve, our physical therapists will perform initial evaluati on of pt's status upon admission and devise an individualized program for Caregiver Training New precaution - to improve, our physical therapists will perform initial evaluation of pt's status upon admission and devise an individualized program for Patient precaution education Edema - to improve, our physical therapists will perform initial evaluation of pt's status upon admi ssion and devise an individualized program for Elevation Training, and Lymphedema Therapy Poor balance - to improve, our physical therapists will perform initial evaluation of pt's status up on admission and devise an individualized program for Balance Training Poor endurance - to improve, our physical therapists will perform initial evaluation of pt's status upon admission and devise an individualized program for Endurance Training Weakness - to improve, our physical therapists will perform initial evaluation of pt's status upon a dmission and devise an individualized program for Aquatic Therapy, Neuromuscular Reeducation, and Str engthening Achieving independence - to improve, our physical therapists will perform initial evaluation of pt's status upon admission and devise an individualized program for Community Reintegration Activities - Occupational Therapy ADL deficits - to improve, our occupation therapists will perform initial evaluation of pt's status upon admission and devise an individualized program for Bathing, Bed mobility, Community Reintegratio n, Cooking, Dressing, Eating, Fine Motor Skills, Grooming, Homemaking, Kitchen Mobility, Laundry, Pat ient Education, Safety Awareness, Splinting - Positioning, Transfers(Toilet, Tub, Shower), and Wheel Chair Management Cognitive deficits - to improve, our occupation therapists will perform initial evaluation of pt's s tatus upon admission and devise an individualized program for Cognition - orientation Need for women's health care nurse practitioner - to improve, our occupation therapists will perform initial evaluation of pt's status upon admission and devise an individualized program for Caregiver Training Weakness - to improve, our occupation therapists will perform initial evaluation of pt's status upon admission and devise an individualized program for Aquatic Therapy, Balance, Endurance, UE ROM, and UE strengthening - Anterior Hip Precaution No abduction No active extension No adduction across midline No external rotation No hip flexion >90 degrees No internal rotation - Diet - Liquid Texture Continue Regular - Tube Feed Continue N/A - Diet Type Continue Regular - Posterior Hip Precaution No adduction across midline No external rotation No hip flexion >90 degrees No internal rotation No wheel chair propulsion - Weight Bearing Precaution TTWB right LE - Skin care per protocol - Diet - Solid Texture Continue Regular - Shower allowing shower FUNCTIONAL STATUS: UPDATED AT WEEKLY TEAM CONFERENCE - Bladder Same accident frequency: 7-Ind - No accidents in the past 7 days - Bowel Same accident frequency: 7-Ind - No accidents in the past 7 days - Walking Same score based on distance walked: 2(50-149ft) FUNCTIONAL STATUS: - Self-Care A. Eating Ind B. Grooming Ind C. Bathing Ind D. Dressing - Upper sup E. Dressing - Lower Ceasar F. Toileting modA - Sphincter Control G: Bladder control Ind H: Bowel control Ind - Transfers Control I. Bed/Chair/Wheelchair sup J. Toilet Ceasar K. Tub/Shower Ceasar - Locomotion L. Walk/Wheelchair (B) modA M. Stairs ADNO - Communication N. Comprehension (B) sup O. Expression (B) sup - Social Cognition P. Social Interaction Ceasar Q. Problem Solving sup R. Memory Deven - Endurance Fair - Balance Fair - Safety Awareness Poor CURRENT [facility]. DEFICITS: Communication, Social Cognition, Balance, Endurance, Safety Awareness, Transfers Control, Locomotion, and Self-Care SIGNATURE PANEL: ([facility])
[2018-03-29] MEDS: AMITRIPTYLINE 25 MG TAB PO SCH (20:56)
[2018-03-29] MEDS: MELATONIN 3 MG TABLET PO PRN (20:56)
--- NOTE | 2018-03-30 02:57 | PN ---
Date of Progress Note: 03/29/2018 Chief Complaint: Acute kidney injury on chronic kidney disease. History Of Present Illness: The patient has multiple medical problems including history of alcoholic liver disease, diabetes mellitus complicated by neuropathy. The patient is recovering from acute pa ncreatitis. She developed hip fracture and is undergoing rehab. Review of Systems: Denies fever or chills. Physical Examination: Lungs: Clear to auscultation bilaterally. Heart: S1 and S2. Abdomen: Soft and benign. Extremities: Slight edema. Laboratory Data: Creatinine level 1.76. BUN 30. Impression And Plan: 1.Eiazg-rh-[id number] kidney injury, multifactorial. The patient has nonoliguric urine output. Contin ue to monitor electrolytes and avoid nephrotoxic medication. 2.Hypertension. Blood pressure control. Hold blood pressure medication if systolic blood pressure is below 110. 3.Diabetes mellitus. Continue insulin. 4.Anemia, chronic. Monitor hemoglobin level. 5.Deconditioning. The patient is undergoing rehab. FABRICE/URBANO Voice ID: [id number] Report ID: [id number]
[2018-03-30 05:47] LABS: Absolute Lymphocytes (CBC) 0.7 K/uL (0.7-4.9); Absolute Monocytes 0.6 K/uL (0.1-1.3); Absolute Neutrophil 2.8 K/uL (1.8-8.0); Basophils % 0.6 % (0-1.3); Lymphocytes % 14.6 % (15.3-44.8); MPV 8.5 fL (7.6-11.3); Monocytes % 13.7 % (3.3-12.3); RBC Red Blood Cell Count 2.59 M/uL (3.86-4.86)
[2018-03-30 06:04] LABS: Potassium 4.3 mmol/L (3.5-5.1)
[2018-03-30] MEDS: INSULIN -REGULAR HUMAN 50 UNIT/0.5 ML ML SQ SCH ×4 (07:30→20:20)
[2018-03-30] MEDS: PROMOD 30 ML DOSE PO SCH ×2 (08:00→20:17)
[2018-03-30] MEDS: GABAPENTIN 300 MG CAP PO SCH ×2 (08:29→20:16)
[2018-03-30] MEDS: FE SULF/FA/VIT B COMP & C TAB PO SCH (08:30)
[2018-03-30] MEDS: PANTOPRAZOLE 40MG TABLET PO SCH (08:30)
[2018-03-30] MEDS: FLUOXETINE 20 MG CAP PO SCH (08:30)
[2018-03-30] MEDS: MIDODRINE HCL 5 MG TABLET PO SCH (08:31)
[2018-03-30] MEDS: FERROUS SULFATE 325 MG TAB PO SCH ×2 (08:31→20:16)
[2018-03-30] MEDS: TRAMADOL HCL 50 MG TAB PO PRN ×2 (08:31→13:47)
[2018-03-30] MEDS: FLUCONAZOLE 100 MG TAB PO SCH (08:31)
[2018-03-30] MEDS: Meropenem 500 MG in NA CHLORIDE 0.9% 100 ML IV SCH ×2 (08:32→20:16)
[2018-03-30] MEDS: MEDIHONEY 44 ML TOPICAL TUBE TOP SCH (08:33)
[2018-03-30] MEDS: INSULIN GLARGINE 100 UNITS/ML SQ SCH (08:34)
[2018-03-30] MEDS: FUROSEMIDE 40 MG TABLET PO SCH ×3 (09:00→16:47)
[2018-03-30] MEDS: ONDANSETRON 4 MG (ODT) TAB PO PRN (09:31)
[2018-03-30] MEDS ORDERED: PANTOPRAZOLE 40 MG INJ IVP ONE ×2 (09:53→09:55)
[2018-03-30] MEDS ORDERED: SODIUM CHLORIDE 0.9% 10ML INJ IV PRN ×2 (09:53→09:55)
[2018-03-30] MEDS ORDERED: ONDANSETRON 4 MG/2 ML VIAL IV PRN (09:57)
[2018-03-30] MEDS: PANTOPRAZOLE INJ 80 MG in NA CHLORIDE 0.9% 250 ML IV SCH ×2 (11:20→20:22)
--- NOTE | 2018-03-30 15:19 | FAST ---
SHIFT START DATE/TIME: 03/30/2018 07:00 (CREDIT RISK SPECIALIST) SHIFT END DATE/TIME: 03/30/2018 19:00 (CREDIT RISK SPECIALIST) NAME DEL JOSUE DATE OF : 1975 DATE OF ADMISSION: 03/24/2018 14:02 (CREDIT RISK SPECIALIST) PHONE: AGE: 42 N# [id number] GENDER: Female ENCOUNTER PHYSICIAN: Dr. Praful Triana M.D. ADMISSION DIAGNOSIS: - Orthopaedic Disorders 08 - Unilateral Hip Fracture (08.11) Right hip comminuted intertrochanteric and subtrochanteric femur fracture. EATING: EATING - STEP 1: Does the patient require the assistance of a person or device, or need extra time when eating? Yes. EATING - STEP 2: Does the patient require the assistance of a helper? Yes. EATING - STEP 3: Does the patient perform half or more of the eating tasks? Yes. EATING - STEP 4: Does the patient need only supervision, cuing, coaxing OR help to apply an orthosis OR help to cut fo od, open containers, pour liquids, or butter bread? Yes. EATING - SCORE: 5-SUP GROOMING: Comb/brush hair Oral care GROOMING - STEP 1: Does the patient require the assistance of a person or device, or need extra time when grooming? No. GROOMING - SCORE: 7-IND BATHING: Activity did not occur on this shift BATHING - SCORE: 0-UNK DRESSING - UPPER BODY: Activity did not occur on this shift ARTICLES SCORE Total number of steps: 0 DRESSING - UPPER BODY - SCORE: 0-UNK DRESSING - LOWER BODY: Activity did not occur on this shift ARTICLES SCORE Total number of steps: 0 DRESSING - LOWER BODY - SCORE: 0-UNK TOILETING: TOILETING - STEP 1: Does the patient require the assistance of a person or device, or need extra time with toileting? Yes . TOILETING - STEP 2: Does the patient require the assistance of a helper? Yes. TOILETING - STEP 3: How much assistance does the patient require from the helper? Hands-on assistance from the helper TOILETING - STEP 4: Of the 3 tasks: 1) Adjusting clothing prior to use, 2) Cleansing of perineal area, 3) Adjusting clot doug after use; How many tasks does the patient perform WITHOUT assistance of the helper? Three tasks with steadying assistance from the helper TOILETING - SCORE: 4-MIN BLADDER MANAGEMENT: BLADDER MANAGEMENT - STEP 1: Does the patient control the bladder completely and intentionally without equipment or devices or med ications, and is always continent? No. BLADDER MANAGEMENT - STEP 2: Does the patient require the assistance of a helper? No, patient requires and independently uses an a ssistive device, such as a urinal, bedpan, bedside commode, catheter, absorbent pad, or collecting de vice BLADDER MANAGEMENT - SCORE: 6-KENZIE BOWEL MANAGEMENT: Activity did not occur on this shift BOWEL MANAGEMENT - SCORE: 7-IND TRANSFERS: BED, CHAIR, WHEELCHAIR: TRANSFERS: BED, CHAIR, WHEELCHAIR - STEP 1: Does the patient require assistance of a person or device, or need extra time with bed, chair, or whe elchair transfers? Yes. TRANSFERS: BED, CHAIR, WHEELCHAIR - STEP 2: Does the patient require the assistance of a helper? Yes. TRANSFERS: BED, CHAIR, WHEELCHAIR - STEP 3: How much assistance does the patient require from the helper? Steadying/guiding assistance TRANSFERS: BED, CHAIR, WHEELCHAIR - SCORE: 4-MIN TRANSFERS: TOILET: TRANSFERS: TOILET - STEP 1: Does the patient require the assistance of a person or device, or need extra time with toilet transfe rs? Yes. TRANSFERS: TOILET - STEP 2: Does the patient require the assistance of a helper? Yes. TRANSFERS: TOILET - STEP 3: How much assistance does the patient require from the helper? Patient performs half or more of the tr ansferring tasks TRANSFERS: TOILET - STEP 4: Does the patient need only incidental help such as contact guard or steadying during toilet transfer? Yes. TRANSFERS: TOILET - SCORE: 4-MIN TRANSFERS: SHOWER: Activity did not occur on this shift TRANSFERS: SHOWER - SCORE: 0-UNK TRANSFERS: TUB: Activity did not occur on this shift TRANSFERS: TUB - SCORE: 0-UNK LOCOMOTION: WALK: Activity did not occur on this shift LOCOMOTION: WALK - SCORE: 0-UNK LOCOMOTION: WHEELCHAIR: Activity did not occur on this shift LOCOMOTION: WHEELCHAIR - SCORE: 0-UNK COMPREHENSION: COMPREHENSION: TYPE: Both COMPREHENSION - STEP 1: Does the patient require help from a person or device, or need extra time to understand complex and a bstract ideas (such as current events, finances, discharge planning, medical issues, relationships, e tc)? No. COMPREHENSION - STEP 2: Does the patient need extra time, require an assistive device (such as glasses for visual comprehensi on or a hearing aid for auditory comprehension) or does s/he have mild difficulty understanding compl ex and abstract information? Yes. COMPREHENSION - SCORE: 6-KENZIE EXPRESSION EXPRESSION: TYPE: Both EXPRESSION - STEP 1: Does the patient require help from a person or device, or need extra time expressing complex and abst ract ideas (such as current events, finances, discharge planning, medical issues, relationships, etc) ? No. EXPRESSION - STEP 2: Does the patient need extra time, require an assistive device (such as augmentive communication syste m or a communication board), OR does s/he have mild difficulty expressing complex and abstract ideas (including mild dysarthria or mild word-find problems)? Yes. EXPRESSION - SCORE: 6-KENZIE SOCIAL INTERACTION: SOCIAL INTERACTION - STEP 1: Does the patient require a helper to interact with others in social and therapeutic situations? No. SOCIAL INTERACTION - STEP 2: Does the patient need extra time in social situations, OR does s/he interact with staff, other patien ts, and family members ONLY in structured environments, OR does s/he require medication for social in teraction? Yes, patient needs extra time SOCIAL INTERACTION - SCORE: 6-KENZIE PROBLEM SOLVING: PROBLEM SOLVING - STEP 1: Does the patient need help from a person or device, or need extra time to solve complex problems such as managing a checking account or confronting interpersonal problems? No. PROBLEM SOLVING - STEP 2: Does the patient require extra time to make decisions or solve problems, OR does s/he have slight dif ficulty reading, initiating, or self-correcting in unfamiliar situations? Yes, patient needs extra ti me. PROBLEM SOLVING - SCORE: 6-KENZIE MEMORY: MEMORY - STEP 1: Does the patient need help from a person or device, or need extra time to remember frequently encount ered people, daily routines, and executing requests? No. MEMORY - STEP 2: Does the patient have slight difficulty recognizing frequently encountered people, daily routines, or executing requests without the need for repetition or using self-initiated or environmental cues to remember? Yes. MEMORY - SCORE: 6-KENZIE SIGNATURE PANEL: The following modified sections: Eating - Score, Grooming - Score, Bathing - Score, Dressing - Upper Body - Score, Dressing - Lower Body - Score, Toileting - Score, Bladder Management - Score, Bowel Man agement - Score, Transfers: Bed, Chair, Wheelchair - Score, Transfers: Toilet - Score, Transfers: Radha wer - Score, Transfers: Tub - Score, Locomotion: Walk - Score, Locomotion: Wheelchair - Score, Compre hension - Score, Expression - Score, Social Interaction - Score, Problem Solving - Score, Memory - Sc ore were [electronically] signed by Adonis Davidson on Sat Mar 30 2018 15:18:05 GMT-0600 (Central Standard Time)
--- NOTE | 2018-03-30 16:17 | FAST ---
ENCOUNTER DATE AND TIME: 03/30/2018 08:00 (LINER REROLL TENDER) NAME DEL JOSUE DATE OF : 1975 DATE OF ADMISSION: 03/24/2018 14:02 (LINER REROLL TENDER) PHONE: AGE: 42 N# [id number] GENDER: Female ENCOUNTER PHYSICIAN: Dr. Praful Triana M.D. ADMISSION DIAGNOSIS: - Orthopaedic Disorders 08 - Unilateral Hip Fracture (08.11) Right hip comminuted intertrochanteric and subtrochanteric femur fracture. EATING: Activity did not occur on this shift EATING - SCORE: 0-UNK GROOMING: Wash, rinse, and dry hands GROOMING - STEP 1: Does the patient require the assistance of a person or device, or need extra time when grooming? Yes. GROOMING - STEP 2: Does the patient require the assistance of a helper? Yes. GROOMING - STEP 3: How much assistance does the patient require from the helper? Cuing, coaxing, instructions, or encour agement for completion of grooming GROOMING - SCORE: 5-SUP BATHING: Activity did not occur on this shift BATHING - SCORE: 0-UNK DRESSING - UPPER BODY: Activity did not occur on this shift ARTICLES SCORE Total number of steps: 0 DRESSING - UPPER BODY - SCORE: 0-UNK DRESSING - LOWER BODY: Elastic waist pants (three steps) Slip-on shoe - Left foot (one step) Underwear (three steps) ARTICLES SCORE Total number of steps: 7 DRESSING - LOWER BODY - STEP 1: Does the patient require help from a person or device, or need extra time when dressing below the jaylen st? Yes. DRESSING - LOWER BODY - STEP 2: Does the patient require the assistance of a helper? Yes. DRESSING - LOWER BODY - STEP 3: Does the helper touch the patient while dressing? No. DRESSING - LOWER BODY - SCORE: 5-SUP TOILETING: TOILETING - STEP 1: Does the patient require the assistance of a person or device, or need extra time with toileting? Yes . TOILETING - STEP 2: Does the patient require the assistance of a helper? Yes. TOILETING - STEP 3: How much assistance does the patient require from the helper? Only supervision TOILETING - SCORE: 5-SUP BLADDER MANAGEMENT: Activity did not occur on this shift BLADDER MANAGEMENT - SCORE: 7-IND BOWEL MANAGEMENT: Activity did not occur on this shift BOWEL MANAGEMENT - SCORE: 7-IND TRANSFERS: BED, CHAIR, WHEELCHAIR: Activity did not occur on this shift TRANSFERS: BED, CHAIR, WHEELCHAIR - SCORE: 0-UNK TRANSFERS: TOILET: TRANSFERS: TOILET - STEP 1: Does the patient require the assistance of a person or device, or need extra time with toilet transfe rs? Yes. TRANSFERS: TOILET - STEP 2: Does the patient require the assistance of a helper? Yes. TRANSFERS: TOILET - STEP 3: How much assistance does the patient require from the helper? Patient performs half or more of the tr ansferring tasks TRANSFERS: TOILET - STEP 4: Does the patient need only incidental help such as contact guard or steadying during toilet transfer? Yes. TRANSFERS: TOILET - SCORE: 4-MIN TRANSFERS: SHOWER: Activity did not occur on this shift TRANSFERS: SHOWER - SCORE: 0-UNK TRANSFERS: TUB: Activity did not occur on this shift TRANSFERS: TUB - SCORE: 0-UNK LOCOMOTION: WALK: Activity did not occur on this shift LOCOMOTION: WALK - SCORE: 0-UNK LOCOMOTION: WHEELCHAIR: Activity did not occur on this shift LOCOMOTION: WHEELCHAIR - SCORE: 0-UNK LOCOMOTION: STAIRS: Activity did not occur on this shift LOCOMOTION: STAIRS - SCORE: 0-UNK COMPREHENSION: COMPREHENSION: TYPE: Both COMPREHENSION - STEP 1: Does the patient require help from a person or device, or need extra time to understand complex and a bstract ideas (such as current events, finances, discharge planning, medical issues, relationships, e tc)? No. COMPREHENSION - STEP 2: Does the patient need extra time, require an assistive device (such as glasses for visual comprehensi on or a hearing aid for auditory comprehension) or does s/he have mild difficulty understanding compl ex and abstract information? Yes. COMPREHENSION - SCORE: 6-KENZIE EXPRESSION EXPRESSION: TYPE: Vocal EXPRESSION - STEP 1: Does the patient require help from a person or device, or need extra time expressing complex and abst ract ideas (such as current events, finances, discharge planning, medical issues, relationships, etc) ? No. EXPRESSION - STEP 2: Does the patient need extra time, require an assistive device (such as augmentive communication syste m or a communication board), OR does s/he have mild difficulty expressing complex and abstract ideas (including mild dysarthria or mild word-find problems)? No. EXPRESSION - SCORE: 7-IND SOCIAL INTERACTION: SOCIAL INTERACTION - STEP 1: Does the patient require a helper to interact with others in social and therapeutic situations? No. SOCIAL INTERACTION - STEP 2: Does the patient need extra time in social situations, OR does s/he interact with staff, other patien ts, and family members ONLY in structured environments, OR does s/he require medication for social in teraction? No. SOCIAL INTERACTION - SCORE: 7-IND PROBLEM SOLVING: PROBLEM SOLVING - STEP 1: Does the patient need help from a person or device, or need extra time to solve complex problems such as managing a checking account or confronting interpersonal problems? No. PROBLEM SOLVING - STEP 2: Does the patient require extra time to make decisions or solve problems, OR does s/he have slight dif ficulty reading, initiating, or self-correcting in unfamiliar situations? Yes, patient needs extra ti me. PROBLEM SOLVING - SCORE: 6-KENZIE MEMORY: MEMORY - STEP 1: Does the patient need help from a person or device, or need extra time to remember frequently encount ered people, daily routines, and executing requests? No. MEMORY - STEP 2: Does the patient have slight difficulty recognizing frequently encountered people, daily routines, or executing requests without the need for repetition or using self-initiated or environmental cues to remember? Yes. MEMORY - SCORE: 6-KENZIE SIGNATURE PANEL: The following modified sections: Eating - Score, Grooming - Score, Bathing - Score, Dressing - Upper Body - Score, Dressing - Lower Body - Score, Toileting - Score, Transfers: Bed, Chair, Wheelchair - S core, Transfers: Toilet - Score, Transfers: Shower - Score, Transfers: Tub - Score, Comprehension - S core, Expression - Score, Social Interaction - Score, Problem Solving - Score, Memory - Score were [e lectronically] signed by Libertad Tom OT on Sat Mar 30 2018 16:16:48 GMT-0600 (Central Standard Ti me)
[2018-03-30] MEDS: EPOETIN ALFA 10,000 UNIT/ML SQ SCH (16:48)
[2018-03-30] MEDS: MELATONIN 3 MG TABLET PO PRN (20:17)
[2018-03-30] MEDS: AMITRIPTYLINE 25 MG TAB PO SCH (20:17)
[2018-03-30] MEDS: VANCOMYCIN/NS 1 gm 1 GM/250 ML BAG IVPB SCH (20:17)
[2018-03-30 20:26] LABS: Hematocrit 26.8 % (36.0-45.0)
[2018-03-30 20:48] LABS: Ferritin 883.2 ng/mL (8-388)
[2018-03-30] MEDS: HYDROCODONE/APAP 5/325 MG TAB PO PRN (22:05)
--- NOTE | 2018-03-30 23:44 | PN ---
Date of Progress Note: 03/30/2018 Chief Complaint: Acute on chronic kidney injury. History Of Present Illness: Patient has multiple medical problems including history of alcoholic alexandre er disease, diabetes mellitus, complicated by neuropathy. Patient is recovering from acute pancreati tis. Today, she is complaining of abdominal pain and nausea. She was found to have progressively wo rse anemia and hemoglobin level was reevaluated. Patient was started on Protonix drip for epigastric pain and I recommended to consult system engineer. Review of Systems: Denies chest pain, palpitation. She is complaining of epigastric abdominal pain and nausea. Physical Examination: Lungs: Clear to auscultation bilaterally. Heart: S1 and S2. Abdomen: Soft and benign. Extremities: Slight edema. Laboratory Data: Hemoglobin 7.8, WBC 4.6, platelet count is 113,000. Glucose 128, sodium 141, potas sium 4.3, chloride 103, CO2 of 32, BUN 35, creatinine 1.86, calcium 8.2. Impression And Plan: 1.Acute kidney injury. Monitor renal function and fluid balance and avoid nephrotoxic medication. 2.Nausea. Patient may need IV fluids for hydration. Continue antinausea medication. Patient is st arted on Protonix drip for possible reflux with peptic ulcer disease. GI is consulted for further evaluation. 3.Legs edema, mild. Continue low-sodium diet. EB/MODL Voice ID: [id number] Report ID: [id number]
[2018-03-31] MEDS: PANTOPRAZOLE INJ 80 MG in NA CHLORIDE 0.9% 250 ML IV SCH (04:54)
[2018-03-31 05:43] LABS: Hematocrit 24.1 % (36.0-45.0)
[2018-03-31] MEDS: Meropenem 500 MG in NA CHLORIDE 0.9% 100 ML IV SCH ×2 (07:00→20:52)
[2018-03-31] MEDS: INSULIN -REGULAR HUMAN 50 UNIT/0.5 ML ML SQ SCH ×4 (07:30→20:54)
[2018-03-31] MEDS: PROMOD 30 ML DOSE PO SCH ×3 (08:00→20:53)
[2018-03-31] MEDS: FE SULF/FA/VIT B COMP & C TAB PO SCH (08:16)
[2018-03-31] MEDS: FUROSEMIDE 40 MG TABLET PO SCH ×2 (08:16→16:31)
[2018-03-31] MEDS: FLUOXETINE 20 MG CAP PO SCH (08:16)
[2018-03-31] MEDS: GABAPENTIN 300 MG CAP PO SCH ×2 (08:16→20:52)
[2018-03-31] MEDS: MIDODRINE HCL 5 MG TABLET PO SCH (08:17)
[2018-03-31] MEDS: MEDIHONEY 44 ML TOPICAL TUBE TOP SCH (08:17)
[2018-03-31] MEDS: FLUCONAZOLE 100 MG TAB PO SCH (08:17)
[2018-03-31] MEDS: FERROUS SULFATE 325 MG TAB PO SCH ×2 (08:17→20:53)
[2018-03-31] MEDS: INSULIN GLARGINE 100 UNITS/ML SQ SCH (08:22)
[2018-03-31] MEDS: PANTOPRAZOLE 40MG TABLET PO SCH (08:39)
--- NOTE | 2018-03-31 10:47 | P.PN ---
Subjective Date of Service: 03/31/18 Primary Care Provider: RITA Huff Chief Complaint: Rehab post Hip fracture Subjective: Other (Patient doing well. Patient remained stable.) Physical Examination - Vital Signs Temperature: 96.4 F Blood Pressure: 120/60 Pulse: 69 Respirations: 16 Pulse Ox (%): 100 - Physical Exam General: Alert, In no apparent distress, Oriented x3, Cooperative HEENT: Atraumatic Neck: Supple Respiratory: Clear to auscultation bilaterally, Normal air movement Cardiovascular: Normal pulses, Regular rate/rhythm Gastrointestinal: Normal bowel sounds, Soft and benign, Non-distended, No tenderness, No masses, No rebound, No guarding Neurological: Normal speech, Normal strength at 5/5 x4 extr, Normal tone, Normal affect - Studies Laboratory Data (last 24 hrs) 03/31/18 05:00: Hgb 8.0 L, Hct 24.1 L 03/30/18 20:13: Hgb 9.0 L, Hct 26.8 L D 03/30/18 19:00: Hct Cancelled 03/30/18 17:00: Hgb Cancelled, Hct Cancelled Microbiology Data (last 24 hrs): 03/30/18 12:50 Stool Occult Blood - Final Medications List Reviewed: Yes Assessment & Plan Discharge Plan: Home Plan to discharge in: Greater than 2 days Physician Review Additional Text: Impression: Bilateral cellulitis to the lower extremity with noted moderate osteomyelitis to the base of the proximal right phalanx on the 5th toe, medial aspect of the 5th metatarsal head, and the majority of the 4th metatarsal head along with moderate osteomyelitis with underlying fracture of the left proximal phalanx of the 5th toe, currently on antibiotic therapy IV Recent fall with right femoral fracture status post repair Chronic renal failure stage 4 Orthostatic hypotension currently on midodrine 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 Patient was started on IV Protonix yesterday. Hemoglobin stable. No need for IV Protonix at this time. Will change to oral. No complaints of hematemesis or rectal bleeding. Patient with chronic anemia due to her liver disease. Will monitor closely. Will continue with IV antibiotic therapy for her osteomyelitis. Continue with physical therapy with emphasis on fall precautions. Renal function stable. Plan for discharge is April 07. Will need to check to see if she will complete her IV antibiotics on April 07 if not then will need to arrange for completion at that time. Will continue to follow closely. Time Spent Managing Pts Care (In Minutes): 25
--- NOTE | 2018-03-31 12:11 | FAST ---
SHIFT START DATE/TIME: 03/31/2018 07:00 (SUPERVISOR ENGRAVING) SHIFT END DATE/TIME: 03/31/2018 19:00 (SUPERVISOR ENGRAVING) NAME DEL JOSUE DATE OF : 1975 DATE OF ADMISSION: 03/24/2018 14:02 (SUPERVISOR ENGRAVING) PHONE: AGE: 42 N# [id number] GENDER: Female ENCOUNTER PHYSICIAN: Dr. Praful Triana M.D. ADMISSION DIAGNOSIS: - Orthopaedic Disorders 08 - Unilateral Hip Fracture (08.11) Right hip comminuted intertrochanteric and subtrochanteric femur fracture. EATING: EATING - STEP 1: Does the patient require the assistance of a person or device, or need extra time when eating? Yes. EATING - STEP 2: Does the patient require the assistance of a helper? No, patient only requires an assistive device, O R s/he takes more than reasonable time to eat, OR there is a safety concern, OR s/he requires modifie d food consistency EATING - SCORE: 6-KENZIE GROOMING: Comb/brush hair Oral care Wash, rinse, and dry face Wash, rinse, and dry hands GROOMING - STEP 1: Does the patient require the assistance of a person or device, or need extra time when grooming? Yes. GROOMING - STEP 2: Does the patient require the assistance of a helper? No. The patient only requires an assistive devic e, OR takes more than reasonable time to groom, OR there is a concern for safety as the patient groom s GROOMING - SCORE: 6-KENZIE BATHING: Activity did not occur on this shift BATHING - SCORE: 0-UNK DRESSING - UPPER BODY: Activity did not occur on this shift ARTICLES SCORE Total number of steps: 0 DRESSING - UPPER BODY - SCORE: 0-UNK DRESSING - LOWER BODY: Activity did not occur on this shift ARTICLES SCORE Total number of steps: 0 DRESSING - LOWER BODY - SCORE: 0-UNK TOILETING: TOILETING - STEP 1: Does the patient require the assistance of a person or device, or need extra time with toileting? Yes . TOILETING - STEP 2: Does the patient require the assistance of a helper? Yes. TOILETING - STEP 3: How much assistance does the patient require from the helper? Only supervision TOILETING - SCORE: 5-SUP BLADDER MANAGEMENT: BLADDER MANAGEMENT - STEP 1: Does the patient control the bladder completely and intentionally without equipment or devices or med ications, and is always continent? No. BLADDER MANAGEMENT - STEP 2: Does the patient require the assistance of a helper? No, patient requires and independently uses an a ssistive device, such as a urinal, bedpan, bedside commode, catheter, absorbent pad, or collecting de vice BLADDER MANAGEMENT - SCORE: 6-KENZIE BOWEL MANAGEMENT: BOWEL MANAGEMENT - STEP 1: Does the patient control bowels completely and intentionally without equipment devices or medications AND is always continent? No. BOWEL MANAGEMENT - STEP 2: Does the patient require the assistance of a helper? No, patient requires medication for control such as stool softeners, suppositories, laxatives, enemas, or OTC medications BOWEL MANAGEMENT - SCORE: 6-KENZIE BOWEL MANAGEMENT - FREQUENCY OF ACCIDENTS: BOWEL MANAGEMENT(FA) - STEP 1: How many accidents has the patient had during the current shift? 1 TRANSFERS: BED, CHAIR, WHEELCHAIR: TRANSFERS: BED, CHAIR, WHEELCHAIR - STEP 1: Does the patient require assistance of a person or device, or need extra time with bed, chair, or whe elchair transfers? Yes. TRANSFERS: BED, CHAIR, WHEELCHAIR - STEP 2: Does the patient require the assistance of a helper? Yes. TRANSFERS: BED, CHAIR, WHEELCHAIR - STEP 3: How much assistance does the patient require from the helper? Steadying/guiding assistance TRANSFERS: BED, CHAIR, WHEELCHAIR - SCORE: 4-MIN TRANSFERS: TOILET: TRANSFERS: TOILET - STEP 1: Does the patient require the assistance of a person or device, or need extra time with toilet transfe rs? Yes. TRANSFERS: TOILET - STEP 2: Does the patient require the assistance of a helper? Yes. TRANSFERS: TOILET - STEP 3: How much assistance does the patient require from the helper? Patient performs half or more of the tr ansferring tasks TRANSFERS: TOILET - STEP 4: Does the patient need only incidental help such as contact guard or steadying during toilet transfer? No. Patient needs more than incidental help TRANSFERS: TOILET - SCORE: 3-MOD TRANSFERS: SHOWER: Activity did not occur on this shift TRANSFERS: SHOWER - SCORE: 0-UNK TRANSFERS: TUB: Activity did not occur on this shift TRANSFERS: TUB - SCORE: 0-UNK LOCOMOTION: WALK: Activity did not occur on this shift LOCOMOTION: WALK - SCORE: 0-UNK LOCOMOTION: WHEELCHAIR: Activity did not occur on this shift LOCOMOTION: WHEELCHAIR - SCORE: 0-UNK COMPREHENSION: COMPREHENSION: TYPE: Both COMPREHENSION - STEP 1: Does the patient require help from a person or device, or need extra time to understand complex and a bstract ideas (such as current events, finances, discharge planning, medical issues, relationships, e tc)? No. COMPREHENSION - STEP 2: Does the patient need extra time, require an assistive device (such as glasses for visual comprehensi on or a hearing aid for auditory comprehension) or does s/he have mild difficulty understanding compl ex and abstract information? Yes. COMPREHENSION - SCORE: 6-KENZIE EXPRESSION EXPRESSION: TYPE: Both EXPRESSION - STEP 1: Does the patient require help from a person or device, or need extra time expressing complex and abst ract ideas (such as current events, finances, discharge planning, medical issues, relationships, etc) ? No. EXPRESSION - STEP 2: Does the patient need extra time, require an assistive device (such as augmentive communication syste m or a communication board), OR does s/he have mild difficulty expressing complex and abstract ideas (including mild dysarthria or mild word-find problems)? Yes. EXPRESSION - SCORE: 6-KENZIE SOCIAL INTERACTION: SOCIAL INTERACTION - STEP 1: Does the patient require a helper to interact with others in social and therapeutic situations? No. SOCIAL INTERACTION - STEP 2: Does the patient need extra time in social situations, OR does s/he interact with staff, other patien ts, and family members ONLY in structured environments, OR does s/he require medication for social in teraction? Yes, patient needs extra time SOCIAL INTERACTION - SCORE: 6-KENZIE PROBLEM SOLVING: PROBLEM SOLVING - STEP 1: Does the patient need help from a person or device, or need extra time to solve complex problems such as managing a checking account or confronting interpersonal problems? No. PROBLEM SOLVING - STEP 2: Does the patient require extra time to make decisions or solve problems, OR does s/he have slight dif ficulty reading, initiating, or self-correcting in unfamiliar situations? Yes, patient needs extra ti me. PROBLEM SOLVING - SCORE: 6-KENZIE MEMORY: MEMORY - STEP 1: Does the patient need help from a person or device, or need extra time to remember frequently encount ered people, daily routines, and executing requests? No. MEMORY - STEP 2: Does the patient have slight difficulty recognizing frequently encountered people, daily routines, or executing requests without the need for repetition or using self-initiated or environmental cues to remember? Yes. MEMORY - SCORE: 6-KENZIE SIGNATURE PANEL: The following modified sections: Eating - Score, Grooming - Score, Bathing - Score, Dressing - Upper Body - Score, Dressing - Lower Body - Score, Toileting - Score, Bladder Management - Score, Bowel Man agement - Score, Transfers: Bed, Chair, Wheelchair - Score, Transfers: Toilet - Score, Transfers: Radha wer - Score, Transfers: Tub - Score, Locomotion: Walk - Score, Locomotion: Wheelchair - Score, Compre hension - Score, Expression - Score, Social Interaction - Score, Problem Solving - Score, Memory - Sc ore were [electronically] signed by Adonis Davidson on SunMar 31 2018 12:11:38 GMT-0600 (Central Standard Time)
[2018-03-31] MEDS: TRAMADOL HCL 50 MG TAB PO PRN (16:31)
[2018-03-31] MEDS: HYDROCODONE/APAP 5/325 MG TAB PO PRN (19:18)
[2018-03-31] MEDS: AMITRIPTYLINE 25 MG TAB PO SCH (20:52)
[2018-04-01] MEDS: HYDROCODONE/APAP 5/325 MG TAB PO PRN ×3 (01:44→19:57)
--- NOTE | 2018-04-01 02:20 | PN ---
Date of Progress Note: 03/31/2018 Chief Complaint: Vxrac-nq-asthtbs kidney injury, nonoliguric. The patient was found to have severe anemia and hemoglobin was re-evaluated. The patient does not have evidence of GI bleeding. IV Leonel nix drip was started because of epigastric pain. There is no evidence of melena, hematemesis. Blood pressure is stabilizing. Review of Systems: Denies fever, chills. Physical Examination: Lungs: Clear to auscultation bilaterally. Heart: S1, S2. Abdomen: Soft, benign, nontender. Extremities: Slight edema. Impression And Plan: 1.Uyuur-qo-ysoczhv kidney injury. Monitor renal function and fluid balance. Adjust medication for blood pressure to prevent renal hypoperfusion. 2.Anemia. Continue KOLBY for anemia due to chronic kidney disease. Monitor iron level. 3.Abdominal pain. The patient was started on Protonix and Zofran. EB/MODL Voice ID: [id number] Report ID: [id number]
[2018-04-01 06:12] LABS: Absolute Lymphocytes (CBC) 0.8 K/uL (0.7-4.9); Absolute Monocytes 0.6 K/uL (0.1-1.3); Absolute Neutrophil 3.6 K/uL (1.8-8.0); Basophils % 0.7 % (0-1.3); Eosinophils % 10.5 % (0-4.4); Hematocrit 25.9 % (36.0-45.0); Lymphocytes % 14.1 % (15.3-44.8); MPV 8.5 fL (7.6-11.3); Monocytes % 10.6 % (3.3-12.3); RBC Red Blood Cell Count 2.92 M/uL (3.86-4.86)
[2018-04-01 06:33] LABS: Potassium 4.3 mmol/L (3.5-5.1)
[2018-04-01] MEDS: INSULIN -REGULAR HUMAN 50 UNIT/0.5 ML ML SQ SCH ×4 (07:30→21:07)
[2018-04-01] MEDS: Meropenem 500 MG in NA CHLORIDE 0.9% 100 ML IV SCH ×2 (07:50→19:58)
[2018-04-01] MEDS: PROMOD 30 ML DOSE PO SCH ×2 (08:00→19:58)
[2018-04-01] MEDS: GABAPENTIN 300 MG CAP PO SCH ×2 (08:01→19:57)
[2018-04-01] MEDS: FLUCONAZOLE 100 MG TAB PO SCH (08:02)
[2018-04-01] MEDS: FE SULF/FA/VIT B COMP & C TAB PO SCH (08:02)
[2018-04-01] MEDS: FERROUS SULFATE 325 MG TAB PO SCH ×2 (08:02→19:57)
[2018-04-01] MEDS: PANTOPRAZOLE 40MG TABLET PO SCH (08:02)
[2018-04-01] MEDS: FUROSEMIDE 40 MG TABLET PO SCH ×2 (08:03→16:19)
[2018-04-01] MEDS: MIDODRINE HCL 5 MG TABLET PO SCH (08:03)
[2018-04-01] MEDS: FLUOXETINE 20 MG CAP PO SCH (08:04)
[2018-04-01] MEDS: MEDIHONEY 44 ML TOPICAL TUBE TOP SCH (08:04)
[2018-04-01] MEDS: INSULIN GLARGINE 100 UNITS/ML SQ SCH (08:37)
[2018-04-01] MEDS: TRAMADOL HCL 50 MG TAB PO PRN (14:32)
--- NOTE | 2018-04-01 14:34 | FAST ---
ENCOUNTER DATE AND TIME: 04/01/2018 08:00 (OPERATOR MAINTAINER) NAME DEL JOSUE DATE OF : 1975 DATE OF ADMISSION: 03/24/2018 14:02 (OPERATOR MAINTAINER) PHONE: AGE: 42 SSN# [id number] GENDER: Female ENCOUNTER PHYSICIAN: Dr. Praful Triana M.D. ADMISSION DIAGNOSIS: - Orthopaedic Disorders 08 - Unilateral Hip Fracture (08.11) Right hip comminuted intertrochanteric and subtrochanteric femur fracture. EATING: Activity did not occur on this shift EATING - SCORE: 0-UNK GROOMING: Activity did not occur on this shift GROOMING - SCORE: 0-UNK BATHING: Activity did not occur on this shift BATHING - SCORE: 0-UNK DRESSING - UPPER BODY: Activity did not occur on this shift Patient is not dressing in public clothing ARTICLES SCORE Total number of steps: 0 DRESSING - UPPER BODY - SCORE: 0-UNK DRESSING - LOWER BODY: Activity did not occur on this shift Patient is not dressing in public clothing ARTICLES SCORE Total number of steps: 0 DRESSING - LOWER BODY - SCORE: 0-UNK TOILETING: Activity did not occur on this shift TOILETING - SCORE: 0-UNK BLADDER MANAGEMENT: Activity did not occur on this shift BLADDER MANAGEMENT - SCORE: 7-IND BOWEL MANAGEMENT: Activity did not occur on this shift BOWEL MANAGEMENT - SCORE: 7-IND TRANSFERS: BED, CHAIR, WHEELCHAIR: TRANSFERS: BED, CHAIR, WHEELCHAIR - STEP 1: Does the patient require assistance of a person or device, or need extra time with bed, chair, or whe elchair transfers? Yes. TRANSFERS: BED, CHAIR, WHEELCHAIR - STEP 2: Does the patient require the assistance of a helper? No. Patient only requires an assistive device fo r bed, chair, wheelchair transfers such as a sliding board, grab bar, or brace, OR s/he takes more th an reasonable time, OR there is a safety concern when s/he performs the transfers TRANSFERS: BED, CHAIR, WHEELCHAIR - SCORE: 6-KENZIE TRANSFERS: TOILET: Activity did not occur on this shift TRANSFERS: TOILET - SCORE: 0-UNK TRANSFERS: SHOWER: Activity did not occur on this shift TRANSFERS: SHOWER - SCORE: 0-UNK TRANSFERS: TUB: Activity did not occur on this shift TRANSFERS: TUB - SCORE: 0-UNK LOCOMOTION: WALK: LOCOMOTION: WALK - STEP 1: Does the patient need help from a person or device, or need extra time to walk 150 feet? No. LOCOMOTION: WALK - STEP 2: Does the patient need an assistive device (such as an orthosis, prosthesis, crutches, or walker) to g o 150 feet, OR does s/he take more than reasonable time, OR is there a concern for safety? Yes, the p atient needs an assistive device LOCOMOTION: WALK - SCORE: 6-KENZIE LOCOMOTION: WHEELCHAIR: Activity did not occur on this shift LOCOMOTION: WHEELCHAIR - SCORE: 0-UNK LOCOMOTION: STAIRS: Activity did not occur on this shift LOCOMOTION: STAIRS - SCORE: 0-UNK COMPREHENSION: COMPREHENSION - SCORE: 0-UNK EXPRESSION EXPRESSION - SCORE: 0-UNK SOCIAL INTERACTION: SOCIAL INTERACTION - SCORE: 0-UNK PROBLEM SOLVING: PROBLEM SOLVING - SCORE: 0-UNK MEMORY: MEMORY - SCORE: 0-UNK SIGNATURE PANEL: The following modified sections: Transfers: Bed, Chair, Wheelchair - Score, Transfers: Toilet - Score , Locomotion: Walk - Score, Locomotion: Wheelchair - Score, Locomotion: Stairs - Score were [electron ically] signed by Gael Rosas PT on SunApr 01 2018 14:34:18 GMT-0600 (Central Standard Time)
--- NOTE | 2018-04-01 18:03 | FAST ---
SHIFT START DATE/TIME: 04/01/2018 07:00 (GENERAL MERCHANDISE MANAGER) SHIFT END DATE/TIME: 04/01/2018 19:00 (GENERAL MERCHANDISE MANAGER) NAME DEL JOSUE DATE OF : 1975 DATE OF ADMISSION: 03/24/2018 14:02 (GENERAL MERCHANDISE MANAGER) PHONE: AGE: 42 N# [id number] GENDER: Female ENCOUNTER PHYSICIAN: Dr. Praful Triana M.D. ADMISSION DIAGNOSIS: - Orthopaedic Disorders 08 - Unilateral Hip Fracture (08.11) Right hip comminuted intertrochanteric and subtrochanteric femur fracture. EATING: EATING - STEP 1: Does the patient require the assistance of a person or device, or need extra time when eating? Yes. EATING - STEP 2: Does the patient require the assistance of a helper? No, patient only requires an assistive device, O R s/he takes more than reasonable time to eat, OR there is a safety concern, OR s/he requires modifie d food consistency EATING - SCORE: 6-KENZIE GROOMING: Comb/brush hair Wash, rinse, and dry face Wash, rinse, and dry hands GROOMING - STEP 1: Does the patient require the assistance of a person or device, or need extra time when grooming? Yes. GROOMING - STEP 2: Does the patient require the assistance of a helper? No. The patient only requires an assistive devic e, OR takes more than reasonable time to groom, OR there is a concern for safety as the patient groom s GROOMING - SCORE: 6-KENZIE BATHING: Activity did not occur on this shift BATHING - SCORE: 0-UNK DRESSING - UPPER BODY: Activity did not occur on this shift ARTICLES SCORE Total number of steps: 0 DRESSING - UPPER BODY - SCORE: 0-UNK DRESSING - UPPER BODY - COMMENTS: Pt up going to shower with therapist DRESSING - LOWER BODY: Activity did not occur on this shift ARTICLES SCORE Total number of steps: 0 DRESSING - LOWER BODY - SCORE: 0-UNK DRESSING - LOWER BODY - COMMENTS: Pt up w/c going to shower with therapist TOILETING: TOILETING - STEP 1: Does the patient require the assistance of a person or device, or need extra time with toileting? Yes . TOILETING - STEP 2: Does the patient require the assistance of a helper? Yes. TOILETING - STEP 3: How much assistance does the patient require from the helper? Only supervision TOILETING - SCORE: 5-SUP BLADDER MANAGEMENT: BLADDER MANAGEMENT - STEP 1: Does the patient control the bladder completely and intentionally without equipment or devices or med ications, and is always continent? No. BLADDER MANAGEMENT - STEP 2: Does the patient require the assistance of a helper? Yes. BLADDER MANAGEMENT - STEP 3: How much assistance does the patient require from the helper? Only supervision, stand-by, cuing, or c oaxing BLADDER MANAGEMENT - SCORE: 5-SUP BLADDER MANAGEMENT - FREQUENCY OF ACCIDENTS: BLADDER MANAGEMENT(FA) - STEP 1: How many accidents has the patient had during the current shift? 0 BOWEL MANAGEMENT: BOWEL MANAGEMENT - STEP 1: Does the patient control bowels completely and intentionally without equipment devices or medications AND is always continent? No. BOWEL MANAGEMENT - STEP 2: Does the patient require the assistance of a helper? No, patient requires extra time BOWEL MANAGEMENT - SCORE: 6-KENZIE BOWEL MANAGEMENT - FREQUENCY OF ACCIDENTS: BOWEL MANAGEMENT(FA) - STEP 1: How many accidents has the patient had during the current shift? 0 TRANSFERS: BED, CHAIR, WHEELCHAIR: TRANSFERS: BED, CHAIR, WHEELCHAIR - STEP 1: Does the patient require assistance of a person or device, or need extra time with bed, chair, or whe elchair transfers? Yes. TRANSFERS: BED, CHAIR, WHEELCHAIR - STEP 2: Does the patient require the assistance of a helper? Yes. TRANSFERS: BED, CHAIR, WHEELCHAIR - STEP 3: How much assistance does the patient require from the helper? Steadying/guiding assistance TRANSFERS: BED, CHAIR, WHEELCHAIR - SCORE: 4-MIN TRANSFERS: TOILET: TRANSFERS: TOILET - STEP 1: Does the patient require the assistance of a person or device, or need extra time with toilet transfe rs? Yes. TRANSFERS: TOILET - STEP 2: Does the patient require the assistance of a helper? Yes. TRANSFERS: TOILET - STEP 3: How much assistance does the patient require from the helper? Patient performs half or more of the tr ansferring tasks TRANSFERS: TOILET - STEP 4: Does the patient need only incidental help such as contact guard or steadying during toilet transfer? No. Patient needs more than incidental help TRANSFERS: TOILET - SCORE: 3-MOD TRANSFERS: SHOWER: Activity did not occur on this shift TRANSFERS: SHOWER - SCORE: 0-UNK TRANSFERS: TUB: Activity did not occur on this shift TRANSFERS: TUB - SCORE: 0-UNK LOCOMOTION: WALK: Activity did not occur on this shift LOCOMOTION: WALK - SCORE: 0-UNK LOCOMOTION: WHEELCHAIR: Activity did not occur on this shift LOCOMOTION: WHEELCHAIR - SCORE: 0-UNK COMPREHENSION: COMPREHENSION: TYPE: Both COMPREHENSION - STEP 1: Does the patient require help from a person or device, or need extra time to understand complex and a bstract ideas (such as current events, finances, discharge planning, medical issues, relationships, e tc)? No. COMPREHENSION - STEP 2: Does the patient need extra time, require an assistive device (such as glasses for visual comprehensi on or a hearing aid for auditory comprehension) or does s/he have mild difficulty understanding compl ex and abstract information? Yes. COMPREHENSION - SCORE: 6-KENZIE EXPRESSION EXPRESSION: TYPE: Both EXPRESSION - STEP 1: Does the patient require help from a person or device, or need extra time expressing complex and abst ract ideas (such as current events, finances, discharge planning, medical issues, relationships, etc) ? No. EXPRESSION - STEP 2: Does the patient need extra time, require an assistive device (such as augmentive communication syste m or a communication board), OR does s/he have mild difficulty expressing complex and abstract ideas (including mild dysarthria or mild word-find problems)? Yes. EXPRESSION - SCORE: 6-KENZIE SOCIAL INTERACTION: SOCIAL INTERACTION - STEP 1: Does the patient require a helper to interact with others in social and therapeutic situations? No. SOCIAL INTERACTION - STEP 2: Does the patient need extra time in social situations, OR does s/he interact with staff, other patien ts, and family members ONLY in structured environments, OR does s/he require medication for social in teraction? Yes, patient needs extra time SOCIAL INTERACTION - SCORE: 6-KENZIE PROBLEM SOLVING: PROBLEM SOLVING - STEP 1: Does the patient need help from a person or device, or need extra time to solve complex problems such as managing a checking account or confronting interpersonal problems? No. PROBLEM SOLVING - STEP 2: Does the patient require extra time to make decisions or solve problems, OR does s/he have slight dif ficulty reading, initiating, or self-correcting in unfamiliar situations? Yes, patient needs extra ti me. PROBLEM SOLVING - SCORE: 6-KENZIE MEMORY: MEMORY - STEP 1: Does the patient need help from a person or device, or need extra time to remember frequently encount ered people, daily routines, and executing requests? No. MEMORY - STEP 2: Does the patient have slight difficulty recognizing frequently encountered people, daily routines, or executing requests without the need for repetition or using self-initiated or environmental cues to remember? Yes. MEMORY - SCORE: 6-KENZIE SIGNATURE PANEL: The following modified sections: Eating - Score, Grooming - Score, Bathing - Score, Dressing - Upper Body - Score, Dressing - Lower Body - Score, Dressing - Upper Body - Comments:, Dressing - Lower Body - Comments:, Toileting - Score, Bladder Management - Score, Bowel Management - Score, Transfers: Bed , Chair, Wheelchair - Score, Transfers: Toilet - Score, Transfers: Shower - Score, Transfers: Tub - S core, Locomotion: Walk - Score, Locomotion: Wheelchair - Score, Comprehension - Score, Expression - S core, Social Interaction - Score, Problem Solving - Score, Memory - Score were [electronically] charles d by Darlene Mobley C.N.A. on SunApr 01 2018 18:02:44 GMT-0600 (Central Standard Time)
[2018-04-01] MEDS: AMITRIPTYLINE 25 MG TAB PO SCH (19:57)
[2018-04-01] MEDS: MELATONIN 3 MG TABLET PO PRN (19:57)
[2018-04-01] MEDS: TAMSULOSIN 0.4 MG SR CAP PO SCH (19:58)
[2018-04-01] MEDS: VANCOMYCIN/NS 1 gm 1 GM/250 ML BAG IVPB SCH (21:00)
[2018-04-01] MEDS ORDERED: VANCOMYCIN 1 GM/VIAL ONE (21:10)
[2018-04-01] MEDS ORDERED: NA CHLORIDE 0.9% 250 ML ONE (21:10)
--- NOTE | 2018-04-02 01:08 | FAST ---
SHIFT START DATE/TIME: 04/01/2018 19:00 (REDRAWER) SHIFT END DATE/TIME: 04/02/2018 07:00 (REDRAWER) NAME DEL JOSUE DATE OF : 1975 DATE OF ADMISSION: 03/24/2018 14:02 (REDRAWER) PHONE: AGE: 42 N# [id number] GENDER: Female ENCOUNTER PHYSICIAN: Dr. Praful Triana M.D. ADMISSION DIAGNOSIS: - Orthopaedic Disorders 08 - Unilateral Hip Fracture (08.11) Right hip comminuted intertrochanteric and subtrochanteric femur fracture. EATING: Activity did not occur on this shift EATING - SCORE: 0-UNK GROOMING: Activity did not occur on this shift GROOMING - SCORE: 0-UNK BATHING: Activity did not occur on this shift BATHING - SCORE: 0-UNK DRESSING - UPPER BODY: Patient is not dressing in public clothing ARTICLES SCORE Total number of steps: 0 DRESSING - UPPER BODY - SCORE: 0-UNK DRESSING - LOWER BODY: Patient is not dressing in public clothing ARTICLES SCORE Total number of steps: 0 DRESSING - LOWER BODY - SCORE: 0-UNK TOILETING: TOILETING - STEP 1: Does the patient require the assistance of a person or device, or need extra time with toileting? Yes . TOILETING - STEP 2: Does the patient require the assistance of a helper? Yes. TOILETING - STEP 3: How much assistance does the patient require from the helper? Only supervision TOILETING - SCORE: 5-SUP BLADDER MANAGEMENT: BLADDER MANAGEMENT - STEP 1: Does the patient control the bladder completely and intentionally without equipment or devices or med ications, and is always continent? No. BLADDER MANAGEMENT - STEP 2: Does the patient require the assistance of a helper? No, patient only requires extra time BLADDER MANAGEMENT - SCORE: 6-KENZIE BOWEL MANAGEMENT: Activity did not occur on this shift BOWEL MANAGEMENT - SCORE: 7-IND TRANSFERS: BED, CHAIR, WHEELCHAIR: TRANSFERS: BED, CHAIR, WHEELCHAIR - STEP 1: Does the patient require assistance of a person or device, or need extra time with bed, chair, or whe elchair transfers? Yes. TRANSFERS: BED, CHAIR, WHEELCHAIR - STEP 2: Does the patient require the assistance of a helper? Yes. TRANSFERS: BED, CHAIR, WHEELCHAIR - STEP 3: How much assistance does the patient require from the helper? Steadying/guiding assistance TRANSFERS: BED, CHAIR, WHEELCHAIR - SCORE: 4-MIN TRANSFERS: TOILET: TRANSFERS: TOILET - STEP 1: Does the patient require the assistance of a person or device, or need extra time with toilet transfe rs? Yes. TRANSFERS: TOILET - STEP 2: Does the patient require the assistance of a helper? Yes. TRANSFERS: TOILET - STEP 3: How much assistance does the patient require from the helper? Only supervision, cuing, coaxing, OR he lp to set out transfer equipment or to lock brakes and/or lift foot rests TRANSFERS: TOILET - SCORE: 5-SUP TRANSFERS: SHOWER: Activity did not occur on this shift TRANSFERS: SHOWER - SCORE: 0-UNK TRANSFERS: TUB: Activity did not occur on this shift TRANSFERS: TUB - SCORE: 0-UNK LOCOMOTION: WALK: Activity did not occur on this shift LOCOMOTION: WALK - SCORE: 0-UNK LOCOMOTION: WHEELCHAIR: Activity did not occur on this shift LOCOMOTION: WHEELCHAIR - SCORE: 0-UNK COMPREHENSION: COMPREHENSION: TYPE: Both COMPREHENSION - STEP 1: Does the patient require help from a person or device, or need extra time to understand complex and a bstract ideas (such as current events, finances, discharge planning, medical issues, relationships, e tc)? No. COMPREHENSION - STEP 2: Does the patient need extra time, require an assistive device (such as glasses for visual comprehensi on or a hearing aid for auditory comprehension) or does s/he have mild difficulty understanding compl ex and abstract information? Yes. COMPREHENSION - SCORE: 6-KENZIE EXPRESSION EXPRESSION: TYPE: Both EXPRESSION - STEP 1: Does the patient require help from a person or device, or need extra time expressing complex and abst ract ideas (such as current events, finances, discharge planning, medical issues, relationships, etc) ? No. EXPRESSION - STEP 2: Does the patient need extra time, require an assistive device (such as augmentive communication syste m or a communication board), OR does s/he have mild difficulty expressing complex and abstract ideas (including mild dysarthria or mild word-find problems)? No. EXPRESSION - SCORE: 7-IND SOCIAL INTERACTION: SOCIAL INTERACTION - STEP 1: Does the patient require a helper to interact with others in social and therapeutic situations? No. SOCIAL INTERACTION - STEP 2: Does the patient need extra time in social situations, OR does s/he interact with staff, other patien ts, and family members ONLY in structured environments, OR does s/he require medication for social in teraction? Yes, patient needs extra time SOCIAL INTERACTION - SCORE: 6-KENZIE PROBLEM SOLVING: PROBLEM SOLVING - STEP 1: Does the patient need help from a person or device, or need extra time to solve complex problems such as managing a checking account or confronting interpersonal problems? No. PROBLEM SOLVING - STEP 2: Does the patient require extra time to make decisions or solve problems, OR does s/he have slight dif ficulty reading, initiating, or self-correcting in unfamiliar situations? Yes, patient needs extra ti me. PROBLEM SOLVING - SCORE: 6-KENZIE MEMORY: MEMORY - STEP 1: Does the patient need help from a person or device, or need extra time to remember frequently encount ered people, daily routines, and executing requests? No. MEMORY - STEP 2: Does the patient have slight difficulty recognizing frequently encountered people, daily routines, or executing requests without the need for repetition or using self-initiated or environmental cues to remember? Yes. MEMORY - SCORE: 6-KENZIE SIGNATURE PANEL: The following modified sections: Eating - Score, Grooming - Score, Dressing - Upper Body - Score, Jens ssing - Lower Body - Score, Toileting - Score, Bladder Management - Score, Bowel Management - Score, Transfers: Bed, Chair, Wheelchair - Score, Transfers: Toilet - Score, Transfers: Shower - Score, Ferrara sfers: Tub - Score, Locomotion: Walk - Score, Locomotion: Wheelchair - Score, Comprehension - Score, Expression - Score, Social Interaction - Score, Problem Solving - Score, Memory - Score were [electro nically] signed by Jami Hilton CNA on SunApr 02 2018 01:07:49 GMT-0600 (Central Standard Time)
--- NOTE | 2018-04-02 01:14 | PN ---
Date of Progress Note: 04/01/2018 Chief Complaint: Acute on chronic kidney injury. The patient has nonoliguric urine output. Renal function has been at stable range. The patient is c omplaining of some difficulty with voiding. A bladder ultrasound will be checked to rule out a urina ry retention. Review of Systems: The patient is feeling better. Epigastric pain is resolved. Physical Examination: Lungs: Clear to auscultation bilaterally. Heart: S1, S2. Abdomen: Soft, benign. Extremities: Slight edema. Impression And Plan: 1.Acute on chronic kidney injury. Monitor fluid balance and continue to check renal function. 2.Dysuria. The patient will have Flomax and bladder ultrasound will be checked for an evidence of u rinary retention. 3.Anemia. Continue KOLBY for anemia due to chronic kidney disease. 4.Abdominal pain, resolved. The patient completed Protonix drip. 5.Hypertension. Blood pressure controlled. Continue blood pressure medication. 6.Liver cirrhosis. I recommended a GI consultation. FABRICE/URBANO Voice ID: [id number] Report ID: [id number]
[2018-04-02] MEDS: INSULIN -REGULAR HUMAN 50 UNIT/0.5 ML ML SQ SCH ×4 (07:30→20:51)
[2018-04-02] MEDS: PROMOD 30 ML DOSE PO SCH ×2 (08:00→20:00)
[2018-04-02] MEDS: Meropenem 500 MG in NA CHLORIDE 0.9% 100 ML IV SCH ×2 (08:00→20:51)
[2018-04-02] MEDS: PANTOPRAZOLE 40MG TABLET PO SCH (08:44)
[2018-04-02] MEDS: FE SULF/FA/VIT B COMP & C TAB PO SCH (08:44)
[2018-04-02] MEDS: FLUOXETINE 20 MG CAP PO SCH (08:44)
[2018-04-02] MEDS: MEDIHONEY 44 ML TOPICAL TUBE TOP SCH (08:44)
[2018-04-02] MEDS: GABAPENTIN 300 MG CAP PO SCH ×2 (08:45→20:50)
[2018-04-02] MEDS: FERROUS SULFATE 325 MG TAB PO SCH ×2 (08:45→20:50)
[2018-04-02] MEDS: HYDROCODONE/APAP 5/325 MG TAB PO PRN (08:46)
[2018-04-02] MEDS: MIDODRINE HCL 5 MG TABLET PO SCH (08:47)
[2018-04-02] MEDS: INSULIN GLARGINE 100 UNITS/ML SQ SCH (08:48)
[2018-04-02] MEDS: FUROSEMIDE 40 MG TABLET PO SCH ×2 (11:42→17:00)
--- NOTE | 2018-04-02 14:23 | FAST ---
SHIFT START DATE/TIME: 04/02/2018 07:00 (BLUE LEATHER SORTER) SHIFT END DATE/TIME: 04/02/2018 19:00 (BLUE LEATHER SORTER) NAME DEL JOSUE DATE OF : 1975 DATE OF ADMISSION: 03/24/2018 14:02 (BLUE LEATHER SORTER) PHONE: AGE: 42 N# [id number] GENDER: Female ENCOUNTER PHYSICIAN: Dr. Praful Triana M.D. ADMISSION DIAGNOSIS: - Orthopaedic Disorders 08 - Unilateral Hip Fracture (08.11) Right hip comminuted intertrochanteric and subtrochanteric femur fracture. EATING: EATING - STEP 1: Does the patient require the assistance of a person or device, or need extra time when eating? Yes. EATING - STEP 2: Does the patient require the assistance of a helper? No, patient only requires an assistive device, O R s/he takes more than reasonable time to eat, OR there is a safety concern, OR s/he requires modifie d food consistency EATING - SCORE: 6-KENZIE GROOMING: Comb/brush hair Wash, rinse, and dry face Wash, rinse, and dry hands GROOMING - STEP 1: Does the patient require the assistance of a person or device, or need extra time when grooming? Yes. GROOMING - STEP 2: Does the patient require the assistance of a helper? No. The patient only requires an assistive devic e, OR takes more than reasonable time to groom, OR there is a concern for safety as the patient groom s GROOMING - SCORE: 6-KENZIE BATHING: Activity did not occur on this shift BATHING - SCORE: 0-UNK DRESSING - UPPER BODY: Activity did not occur on this shift ARTICLES SCORE Total number of steps: 0 DRESSING - UPPER BODY - SCORE: 0-UNK DRESSING - LOWER BODY: Activity did not occur on this shift ARTICLES SCORE Total number of steps: 0 DRESSING - LOWER BODY - SCORE: 0-UNK TOILETING: TOILETING - STEP 1: Does the patient require the assistance of a person or device, or need extra time with toileting? Yes . TOILETING - STEP 2: Does the patient require the assistance of a helper? Yes. TOILETING - STEP 3: How much assistance does the patient require from the helper? Only supervision TOILETING - SCORE: 5-SUP BLADDER MANAGEMENT: BLADDER MANAGEMENT - STEP 1: Does the patient control the bladder completely and intentionally without equipment or devices or med ications, and is always continent? No. BLADDER MANAGEMENT - STEP 2: Does the patient require the assistance of a helper? Yes. BLADDER MANAGEMENT - STEP 3: How much assistance does the patient require from the helper? Only supervision, stand-by, cuing, or c oaxing BLADDER MANAGEMENT - SCORE: 5-SUP BLADDER MANAGEMENT - FREQUENCY OF ACCIDENTS: BLADDER MANAGEMENT(FA) - STEP 1: How many accidents has the patient had during the current shift? 0 BOWEL MANAGEMENT: Activity did not occur on this shift BOWEL MANAGEMENT - SCORE: 7-IND BOWEL MANAGEMENT - FREQUENCY OF ACCIDENTS: BOWEL MANAGEMENT(FA) - STEP 1: How many accidents has the patient had during the current shift? 0 TRANSFERS: BED, CHAIR, WHEELCHAIR: TRANSFERS: BED, CHAIR, WHEELCHAIR - STEP 1: Does the patient require assistance of a person or device, or need extra time with bed, chair, or whe elchair transfers? Yes. TRANSFERS: BED, CHAIR, WHEELCHAIR - STEP 2: Does the patient require the assistance of a helper? Yes. TRANSFERS: BED, CHAIR, WHEELCHAIR - STEP 3: How much assistance does the patient require from the helper? Steadying/guiding assistance TRANSFERS: BED, CHAIR, WHEELCHAIR - SCORE: 4-MIN TRANSFERS: TOILET: TRANSFERS: TOILET - STEP 1: Does the patient require the assistance of a person or device, or need extra time with toilet transfe rs? Yes. TRANSFERS: TOILET - STEP 2: Does the patient require the assistance of a helper? Yes. TRANSFERS: TOILET - STEP 3: How much assistance does the patient require from the helper? Patient performs half or more of the tr ansferring tasks TRANSFERS: TOILET - STEP 4: Does the patient need only incidental help such as contact guard or steadying during toilet transfer? Yes. TRANSFERS: TOILET - SCORE: 4-MIN TRANSFERS: SHOWER: Activity did not occur on this shift TRANSFERS: SHOWER - SCORE: 0-UNK TRANSFERS: TUB: Activity did not occur on this shift TRANSFERS: TUB - SCORE: 0-UNK LOCOMOTION: WALK: Activity did not occur on this shift LOCOMOTION: WALK - SCORE: 0-UNK LOCOMOTION: WHEELCHAIR: LOCOMOTION: WHEELCHAIR - STEP 1: Does the patient need help to go 150 feet in a wheelchair? Yes. LOCOMOTION: WHEELCHAIR - STEP 2: How much assistance does the patient need from the helper? Only supervision, cuing, or coaxing LOCOMOTION: WHEELCHAIR - SCORE: 5-SUP COMPREHENSION: COMPREHENSION: TYPE: Both COMPREHENSION - STEP 1: Does the patient require help from a person or device, or need extra time to understand complex and a bstract ideas (such as current events, finances, discharge planning, medical issues, relationships, e tc)? No. COMPREHENSION - STEP 2: Does the patient need extra time, require an assistive device (such as glasses for visual comprehensi on or a hearing aid for auditory comprehension) or does s/he have mild difficulty understanding compl ex and abstract information? Yes. COMPREHENSION - SCORE: 6-KENZIE EXPRESSION EXPRESSION: TYPE: Both EXPRESSION - STEP 1: Does the patient require help from a person or device, or need extra time expressing complex and abst ract ideas (such as current events, finances, discharge planning, medical issues, relationships, etc) ? No. EXPRESSION - STEP 2: Does the patient need extra time, require an assistive device (such as augmentive communication syste m or a communication board), OR does s/he have mild difficulty expressing complex and abstract ideas (including mild dysarthria or mild word-find problems)? Yes. EXPRESSION - SCORE: 6-KENZIE SOCIAL INTERACTION: SOCIAL INTERACTION - STEP 1: Does the patient require a helper to interact with others in social and therapeutic situations? No. SOCIAL INTERACTION - STEP 2: Does the patient need extra time in social situations, OR does s/he interact with staff, other patien ts, and family members ONLY in structured environments, OR does s/he require medication for social in teraction? Yes, patient needs extra time SOCIAL INTERACTION - SCORE: 6-KENZIE PROBLEM SOLVING: PROBLEM SOLVING - STEP 1: Does the patient need help from a person or device, or need extra time to solve complex problems such as managing a checking account or confronting interpersonal problems? No. PROBLEM SOLVING - STEP 2: Does the patient require extra time to make decisions or solve problems, OR does s/he have slight dif ficulty reading, initiating, or self-correcting in unfamiliar situations? Yes, patient needs extra ti me. PROBLEM SOLVING - SCORE: 6-KENZIE MEMORY: MEMORY - STEP 1: Does the patient need help from a person or device, or need extra time to remember frequently encount ered people, daily routines, and executing requests? No. MEMORY - STEP 2: Does the patient have slight difficulty recognizing frequently encountered people, daily routines, or executing requests without the need for repetition or using self-initiated or environmental cues to remember? Yes. MEMORY - SCORE: 6-KENZIE SIGNATURE PANEL: The following modified sections: Eating - Score, Grooming - Score, Bathing - Score, Dressing - Upper Body - Score, Dressing - Lower Body - Score, Toileting - Score, Bladder Management - Score, Bowel Man agement - Score, Transfers: Bed, Chair, Wheelchair - Score, Transfers: Toilet - Score, Transfers: Radha wer - Score, Transfers: Tub - Score, Locomotion: Walk - Score, Locomotion: Wheelchair - Score, Compre hension - Score, Expression - Score, Social Interaction - Score, Problem Solving - Score, Memory - Sc ore were [electronically] signed by Beena RodriguezNLaura on SunApr 02 2018 14:22:44 T-0600 (Centra l Standard Time)
[2018-04-02] MEDS: AMITRIPTYLINE 25 MG TAB PO SCH (20:50)
[2018-04-02] MEDS: TAMSULOSIN 0.4 MG SR CAP PO SCH (20:50)
[2018-04-02] MEDS: MELATONIN 3 MG TABLET PO PRN (20:50)
[2018-04-02] MEDS: TRAMADOL HCL 50 MG TAB PO PRN (21:01)
--- NOTE | 2018-04-02 21:45 | PN ---
Date of Progress Note: 04/02/2018 Chief Complaint: Acute on chronic kidney injury, nonoliguric. History Of Present Illness: Renal function is plateauing. The patient has history of cirrhosis, chr onic hepatorenal syndrome, developed acute on chronic kidney injury and has nonoliguric urine output, did not require dialysis. Review of Systems: Patient is feeling better. P.o. intake is improving. The patient was started on Protonix drip for e pigastric pain with nausea and vomiting. She is controlled currently with antinausea medication. The patient is complaining of some difficulty voiding and was started on Flomax. Review of Systems: Denies fever, chills. Physical Examination: Lungs: Clear to auscultation bilaterally. Heart: S1, S2. Abdomen: Soft, benign. Extremities: Minimal edema. Impression And Plan: 1.Acute kidney injury on chronic kidney disease. Monitor renal function and electrolyte panel. Franky id nephrotoxic medication. 2.Anemia. Continue KOLBY. The patient may need a blood transfusion. 3.Abdominal pain, resolved. Protonix drip was completed. 4.Cirrhosis. Recommend GI consultation. FABRICE/URBANO Voice ID: [id number] Report ID: [id number]
--- NOTE | 2018-04-03 02:33 | FAST ---
SHIFT START DATE/TIME: 04/02/2018 19:00 (PIT OPERATOR) SHIFT END DATE/TIME: 04/03/2018 07:00 (PIT OPERATOR) NAME DEL JOSUE DATE OF : 1975 DATE OF ADMISSION: 03/24/2018 14:02 (PIT OPERATOR) PHONE: AGE: 42 N# [id number] GENDER: Female ENCOUNTER PHYSICIAN: Dr. Praful Triana M.D. ADMISSION DIAGNOSIS: - Orthopaedic Disorders 08 - Unilateral Hip Fracture (08.11) Right hip comminuted intertrochanteric and subtrochanteric femur fracture. EATING: Activity did not occur on this shift EATING - SCORE: 0-UNK GROOMING: Activity did not occur on this shift GROOMING - SCORE: 0-UNK BATHING: Activity did not occur on this shift BATHING - SCORE: 0-UNK DRESSING - UPPER BODY: Patient is not dressing in public clothing ARTICLES SCORE Total number of steps: 0 DRESSING - UPPER BODY - SCORE: 0-UNK DRESSING - LOWER BODY: Patient is not dressing in public clothing ARTICLES SCORE Total number of steps: 0 DRESSING - LOWER BODY - SCORE: 0-UNK TOILETING: TOILETING - STEP 1: Does the patient require the assistance of a person or device, or need extra time with toileting? Yes . TOILETING - STEP 2: Does the patient require the assistance of a helper? Yes. TOILETING - STEP 3: How much assistance does the patient require from the helper? Only supervision TOILETING - SCORE: 5-SUP BLADDER MANAGEMENT: BLADDER MANAGEMENT - STEP 1: Does the patient control the bladder completely and intentionally without equipment or devices or med ications, and is always continent? No. BLADDER MANAGEMENT - STEP 2: Does the patient require the assistance of a helper? No, patient only requires extra time BLADDER MANAGEMENT - SCORE: 6-KENZIE BOWEL MANAGEMENT: Activity did not occur on this shift BOWEL MANAGEMENT - SCORE: 7-IND TRANSFERS: BED, CHAIR, WHEELCHAIR: TRANSFERS: BED, CHAIR, WHEELCHAIR - STEP 1: Does the patient require assistance of a person or device, or need extra time with bed, chair, or whe elchair transfers? Yes. TRANSFERS: BED, CHAIR, WHEELCHAIR - STEP 2: Does the patient require the assistance of a helper? Yes. TRANSFERS: BED, CHAIR, WHEELCHAIR - STEP 3: How much assistance does the patient require from the helper? Steadying/guiding assistance TRANSFERS: BED, CHAIR, WHEELCHAIR - SCORE: 4-MIN TRANSFERS: TOILET: TRANSFERS: TOILET - STEP 1: Does the patient require the assistance of a person or device, or need extra time with toilet transfe rs? Yes. TRANSFERS: TOILET - STEP 2: Does the patient require the assistance of a helper? Yes. TRANSFERS: TOILET - STEP 3: How much assistance does the patient require from the helper? Only supervision, cuing, coaxing, OR he lp to set out transfer equipment or to lock brakes and/or lift foot rests TRANSFERS: TOILET - SCORE: 5-SUP TRANSFERS: SHOWER: Activity did not occur on this shift TRANSFERS: SHOWER - SCORE: 0-UNK TRANSFERS: TUB: Activity did not occur on this shift TRANSFERS: TUB - SCORE: 0-UNK LOCOMOTION: WALK: Activity did not occur on this shift LOCOMOTION: WALK - SCORE: 0-UNK LOCOMOTION: WHEELCHAIR: Activity did not occur on this shift LOCOMOTION: WHEELCHAIR - SCORE: 0-UNK COMPREHENSION: COMPREHENSION: TYPE: Both COMPREHENSION - STEP 1: Does the patient require help from a person or device, or need extra time to understand complex and a bstract ideas (such as current events, finances, discharge planning, medical issues, relationships, e tc)? No. COMPREHENSION - STEP 2: Does the patient need extra time, require an assistive device (such as glasses for visual comprehensi on or a hearing aid for auditory comprehension) or does s/he have mild difficulty understanding compl ex and abstract information? Yes. COMPREHENSION - SCORE: 6-KENZIE EXPRESSION EXPRESSION: TYPE: Both EXPRESSION - STEP 1: Does the patient require help from a person or device, or need extra time expressing complex and abst ract ideas (such as current events, finances, discharge planning, medical issues, relationships, etc) ? No. EXPRESSION - STEP 2: Does the patient need extra time, require an assistive device (such as augmentive communication syste m or a communication board), OR does s/he have mild difficulty expressing complex and abstract ideas (including mild dysarthria or mild word-find problems)? Yes. EXPRESSION - SCORE: 6-KENZIE SOCIAL INTERACTION: SOCIAL INTERACTION - STEP 1: Does the patient require a helper to interact with others in social and therapeutic situations? No. SOCIAL INTERACTION - STEP 2: Does the patient need extra time in social situations, OR does s/he interact with staff, other patien ts, and family members ONLY in structured environments, OR does s/he require medication for social in teraction? Yes, patient needs extra time SOCIAL INTERACTION - SCORE: 6-KENZIE PROBLEM SOLVING: PROBLEM SOLVING - STEP 1: Does the patient need help from a person or device, or need extra time to solve complex problems such as managing a checking account or confronting interpersonal problems? No. PROBLEM SOLVING - STEP 2: Does the patient require extra time to make decisions or solve problems, OR does s/he have slight dif ficulty reading, initiating, or self-correcting in unfamiliar situations? Yes, patient needs extra ti me. PROBLEM SOLVING - SCORE: 6-KENZIE MEMORY: MEMORY - STEP 1: Does the patient need help from a person or device, or need extra time to remember frequently encount ered people, daily routines, and executing requests? No. MEMORY - STEP 2: Does the patient have slight difficulty recognizing frequently encountered people, daily routines, or executing requests without the need for repetition or using self-initiated or environmental cues to remember? Yes. MEMORY - SCORE: 6-KENZIE SIGNATURE PANEL: The following modified sections: Eating - Score, Grooming - Score, Dressing - Upper Body - Score, Jens ssing - Lower Body - Score, Toileting - Score, Bladder Management - Score, Bowel Management - Score, Transfers: Bed, Chair, Wheelchair - Score, Transfers: Toilet - Score, Transfers: Shower - Score, Ferrara sfers: Tub - Score, Locomotion: Walk - Score, Locomotion: Wheelchair - Score, Comprehension - Score, Expression - Score, Social Interaction - Score, Problem Solving - Score, Memory - Score were [electro nically] signed by Jami Hilton CNA on SunApr 03 2018 02:32:29 GMT-0600 (Central Standard Time)
[2018-04-03] MEDS: INSULIN -REGULAR HUMAN 50 UNIT/0.5 ML ML SQ SCH ×4 (07:30→21:05)
[2018-04-03] MEDS: INSULIN GLARGINE 100 UNITS/ML SQ SCH (07:32)
[2018-04-03] MEDS: Meropenem 500 MG in NA CHLORIDE 0.9% 100 ML IV SCH ×2 (07:38→21:05)
[2018-04-03] MEDS ORDERED: EPOETIN ALFA 10,000 UNIT/ML SQ SCH (08:00)
[2018-04-03] MEDS: PROMOD 30 ML DOSE PO SCH ×2 (08:00→20:00)
[2018-04-03] MEDS: GABAPENTIN 300 MG CAP PO SCH ×2 (08:13→21:03)
[2018-04-03] MEDS: FERROUS SULFATE 325 MG TAB PO SCH ×2 (08:13→21:03)
[2018-04-03] MEDS: FE SULF/FA/VIT B COMP & C TAB PO SCH (08:13)
[2018-04-03] MEDS: FLUOXETINE 20 MG CAP PO SCH (08:13)
[2018-04-03] MEDS: PANTOPRAZOLE 40MG TABLET PO SCH (08:14)
[2018-04-03] MEDS: MIDODRINE HCL 5 MG TABLET PO SCH (08:14)
[2018-04-03] MEDS: HYDROCODONE/APAP 5/325 MG TAB PO PRN ×3 (08:14→21:06)
[2018-04-03] MEDS: FUROSEMIDE 40 MG TABLET PO SCH (08:15)
[2018-04-03] MEDS: MEDIHONEY 44 ML TOPICAL TUBE TOP SCH (08:34)
[2018-04-03] MEDS ORDERED: ALBUMIN HUMAN 25% 100 ML IV ONE (15:00)
--- NOTE | 2018-04-03 15:24 | FAST ---
ENCOUNTER DATE AND TIME: 04/03/2018 08:00 (DOCTOR OF DENTAL MEDICINE) NAME DEL JOSUE DATE OF : 1975 DATE OF ADMISSION: 03/24/2018 14:02 (DOCTOR OF DENTAL MEDICINE) PHONE: AGE: 42 SSN# [id number] GENDER: Female ENCOUNTER PHYSICIAN: Dr. Praful Triana M.D. ADMISSION DIAGNOSIS: - Orthopaedic Disorders 08 - Unilateral Hip Fracture (08.11) Right hip comminuted intertrochanteric and subtrochanteric femur fracture. EATING: Activity did not occur on this shift EATING - SCORE: 0-UNK GROOMING: Activity did not occur on this shift GROOMING - SCORE: 0-UNK BATHING: Activity did not occur on this shift BATHING - SCORE: 0-UNK DRESSING - UPPER BODY: Activity did not occur on this shift Patient is not dressing in public clothing ARTICLES SCORE Total number of steps: 0 DRESSING - UPPER BODY - SCORE: 0-UNK DRESSING - LOWER BODY: Activity did not occur on this shift Patient is not dressing in public clothing ARTICLES SCORE Total number of steps: 0 DRESSING - LOWER BODY - SCORE: 0-UNK TOILETING: Activity did not occur on this shift TOILETING - SCORE: 0-UNK BLADDER MANAGEMENT: Activity did not occur on this shift BLADDER MANAGEMENT - SCORE: 7-IND BOWEL MANAGEMENT: Activity did not occur on this shift BOWEL MANAGEMENT - SCORE: 7-IND TRANSFERS: BED, CHAIR, WHEELCHAIR: TRANSFERS: BED, CHAIR, WHEELCHAIR - STEP 1: Does the patient require assistance of a person or device, or need extra time with bed, chair, or whe elchair transfers? Yes. TRANSFERS: BED, CHAIR, WHEELCHAIR - STEP 2: Does the patient require the assistance of a helper? No. Patient only requires an assistive device fo r bed, chair, wheelchair transfers such as a sliding board, grab bar, or brace, OR s/he takes more th an reasonable time, OR there is a safety concern when s/he performs the transfers TRANSFERS: BED, CHAIR, WHEELCHAIR - SCORE: 6-KENZIE TRANSFERS: TOILET: Activity did not occur on this shift TRANSFERS: TOILET - SCORE: 0-UNK TRANSFERS: SHOWER: Activity did not occur on this shift TRANSFERS: SHOWER - SCORE: 0-UNK TRANSFERS: TUB: Activity did not occur on this shift TRANSFERS: TUB - SCORE: 0-UNK LOCOMOTION: WALK: LOCOMOTION: WALK - STEP 1: Does the patient need help from a person or device, or need extra time to walk 150 feet? No. LOCOMOTION: WALK - STEP 2: Does the patient need an assistive device (such as an orthosis, prosthesis, crutches, or walker) to g o 150 feet, OR does s/he take more than reasonable time, OR is there a concern for safety? Yes, the p atient needs an assistive device LOCOMOTION: WALK - SCORE: 6-KENZIE LOCOMOTION: WHEELCHAIR: LOCOMOTION: WHEELCHAIR - STEP 1: Does the patient need help to go 150 feet in a wheelchair? Yes. LOCOMOTION: WHEELCHAIR - STEP 2: How much assistance does the patient need from the helper? Only supervision, cuing, or coaxing LOCOMOTION: WHEELCHAIR - SCORE: 5-SUP LOCOMOTION: STAIRS: Activity did not occur on this shift LOCOMOTION: STAIRS - SCORE: 0-UNK COMPREHENSION: COMPREHENSION - SCORE: 0-UNK EXPRESSION EXPRESSION - SCORE: 0-UNK SOCIAL INTERACTION: SOCIAL INTERACTION - SCORE: 0-UNK PROBLEM SOLVING: PROBLEM SOLVING - SCORE: 0-UNK MEMORY: MEMORY - SCORE: 0-UNK SIGNATURE PANEL: The following modified sections: Transfers: Bed, Chair, Wheelchair - Score, Transfers: Toilet - Score , Locomotion: Walk - Score, Locomotion: Wheelchair - Score, Locomotion: Stairs - Score were [cyndi jay] signed by Evelio Martínez PTA on SunApr 03 2018 15:23:48 GMT-0600 (Central Standard Time)
--- NOTE | 2018-04-03 15:43 | FAST ---
SHIFT START DATE/TIME: 04/03/2018 07:00 (PROJECT SURVEYOR) SHIFT END DATE/TIME: 04/03/2018 19:00 (PROJECT SURVEYOR) NAME DEL JOSUE DATE OF : 1975 DATE OF ADMISSION: 03/24/2018 14:02 (PROJECT SURVEYOR) PHONE: AGE: 42 N# [id number] GENDER: Female ENCOUNTER PHYSICIAN: Dr. Praful Triana M.D. ADMISSION DIAGNOSIS: - Orthopaedic Disorders 08 - Unilateral Hip Fracture (08.11) Right hip comminuted intertrochanteric and subtrochanteric femur fracture. EATING: EATING - STEP 1: Does the patient require the assistance of a person or device, or need extra time when eating? Yes. EATING - STEP 2: Does the patient require the assistance of a helper? No, patient only requires an assistive device, O R s/he takes more than reasonable time to eat, OR there is a safety concern, OR s/he requires modifie d food consistency EATING - SCORE: 6-KENZIE GROOMING: Comb/brush hair Oral care Wash, rinse, and dry face Wash, rinse, and dry hands GROOMING - STEP 1: Does the patient require the assistance of a person or device, or need extra time when grooming? Yes. GROOMING - STEP 2: Does the patient require the assistance of a helper? Yes. GROOMING - STEP 3: How much assistance does the patient require from the helper? Cuing, coaxing, instructions, or encour agement for completion of grooming GROOMING - SCORE: 5-SUP BATHING: Activity did not occur on this shift BATHING - SCORE: 0-UNK DRESSING - UPPER BODY: Activity did not occur on this shift ARTICLES SCORE Total number of steps: 0 DRESSING - UPPER BODY - SCORE: 0-UNK DRESSING - LOWER BODY: Activity did not occur on this shift ARTICLES SCORE Total number of steps: 0 DRESSING - LOWER BODY - SCORE: 0-UNK TOILETING: TOILETING - STEP 1: Does the patient require the assistance of a person or device, or need extra time with toileting? Yes . TOILETING - STEP 2: Does the patient require the assistance of a helper? Yes. TOILETING - STEP 3: How much assistance does the patient require from the helper? Only supervision TOILETING - SCORE: 5-SUP BLADDER MANAGEMENT: BLADDER MANAGEMENT - STEP 1: Does the patient control the bladder completely and intentionally without equipment or devices or med ications, and is always continent? Yes. BLADDER MANAGEMENT - SCORE: 7-IND BOWEL MANAGEMENT: BOWEL MANAGEMENT - STEP 1: Does the patient control bowels completely and intentionally without equipment devices or medications AND is always continent? Yes. BOWEL MANAGEMENT - SCORE: 7-IND TRANSFERS: BED, CHAIR, WHEELCHAIR: TRANSFERS: BED, CHAIR, WHEELCHAIR - STEP 1: Does the patient require assistance of a person or device, or need extra time with bed, chair, or whe elchair transfers? Yes. TRANSFERS: BED, CHAIR, WHEELCHAIR - STEP 2: Does the patient require the assistance of a helper? Yes. TRANSFERS: BED, CHAIR, WHEELCHAIR - STEP 3: How much assistance does the patient require from the helper? Steadying/guiding assistance TRANSFERS: BED, CHAIR, WHEELCHAIR - SCORE: 4-MIN TRANSFERS: TOILET: TRANSFERS: TOILET - STEP 1: Does the patient require the assistance of a person or device, or need extra time with toilet transfe rs? Yes. TRANSFERS: TOILET - STEP 2: Does the patient require the assistance of a helper? Yes. TRANSFERS: TOILET - STEP 3: How much assistance does the patient require from the helper? Patient performs half or more of the tr ansferring tasks TRANSFERS: TOILET - STEP 4: Does the patient need only incidental help such as contact guard or steadying during toilet transfer? Yes. TRANSFERS: TOILET - SCORE: 4-MIN TRANSFERS: SHOWER: Activity did not occur on this shift TRANSFERS: SHOWER - SCORE: 0-UNK TRANSFERS: TUB: Activity did not occur on this shift TRANSFERS: TUB - SCORE: 0-UNK LOCOMOTION: WALK: Activity did not occur on this shift LOCOMOTION: WALK - SCORE: 0-UNK LOCOMOTION: WHEELCHAIR: Activity did not occur on this shift LOCOMOTION: WHEELCHAIR - SCORE: 0-UNK COMPREHENSION: COMPREHENSION: TYPE: Both COMPREHENSION - STEP 1: Does the patient require help from a person or device, or need extra time to understand complex and a bstract ideas (such as current events, finances, discharge planning, medical issues, relationships, e tc)? No. COMPREHENSION - STEP 2: Does the patient need extra time, require an assistive device (such as glasses for visual comprehensi on or a hearing aid for auditory comprehension) or does s/he have mild difficulty understanding compl ex and abstract information? Yes. COMPREHENSION - SCORE: 6-KENZIE EXPRESSION EXPRESSION: TYPE: Both EXPRESSION - STEP 1: Does the patient require help from a person or device, or need extra time expressing complex and abst ract ideas (such as current events, finances, discharge planning, medical issues, relationships, etc) ? No. EXPRESSION - STEP 2: Does the patient need extra time, require an assistive device (such as augmentive communication syste m or a communication board), OR does s/he have mild difficulty expressing complex and abstract ideas (including mild dysarthria or mild word-find problems)? No. EXPRESSION - SCORE: 7-IND SOCIAL INTERACTION: SOCIAL INTERACTION - STEP 1: Does the patient require a helper to interact with others in social and therapeutic situations? No. SOCIAL INTERACTION - STEP 2: Does the patient need extra time in social situations, OR does s/he interact with staff, other patien ts, and family members ONLY in structured environments, OR does s/he require medication for social in teraction? No. SOCIAL INTERACTION - SCORE: 7-IND PROBLEM SOLVING: PROBLEM SOLVING - STEP 1: Does the patient need help from a person or device, or need extra time to solve complex problems such as managing a checking account or confronting interpersonal problems? No. PROBLEM SOLVING - STEP 2: Does the patient require extra time to make decisions or solve problems, OR does s/he have slight dif ficulty reading, initiating, or self-correcting in unfamiliar situations? No. PROBLEM SOLVING - SCORE: 7-IND MEMORY: MEMORY - STEP 1: Does the patient need help from a person or device, or need extra time to remember frequently encount ered people, daily routines, and executing requests? No. MEMORY - STEP 2: Does the patient have slight difficulty recognizing frequently encountered people, daily routines, or executing requests without the need for repetition or using self-initiated or environmental cues to remember? No. MEMORY - SCORE: 7-IND SIGNATURE PANEL: The following modified sections: Eating - Score, Grooming - Score, Bathing - Score, Dressing - Upper Body - Score, Dressing - Lower Body - Score, Toileting - Score, Bladder Management - Score, Bowel Man agement - Score, Transfers: Bed, Chair, Wheelchair - Score, Transfers: Toilet - Score, Transfers: Radha wer - Score, Transfers: Tub - Score, Locomotion: Walk - Score, Locomotion: Wheelchair - Score, Compre hension - Score, Expression - Score, Social Interaction - Score, Problem Solving - Score, Memory - Sc ore were [electronically] signed by Adonis Davidson on SunApr 03 2018 15:43:17 GMT-0600 (Central Standard Time)
--- NOTE | 2018-04-03 18:31 | R.PN ---
ENCOUNTER DATE AND TIME: 04/03/2018 18:25 (JAVA WEB USER INTERFACE DEVELOPER) NAME DEL JOSUE DATE OF : 1975 DATE OF ADMISSION: 03/24/2018 14:02 (JAVA WEB USER INTERFACE DEVELOPER) Right hip comminuted intertrochanteric and subtrochanteric femur fractureCHIEF COMPLAINT: Right hip fracture SUBJECTIVE: Pt denied any depression. Pt denied any Shortness of Breath. Ambulated 700' with modified independence using a rolling walker. Edema in the lower extremities and blood pressures are low over the past 2 days. Prealbumin is also l ow while patient is on lasix per renal team. D/Ronald lasix and added albumin. VITAL SIGNS Temperature: 97.6 F SBP/DBP: 82/60 Pulse: 78 Resp: 16 MEDICATION ALLERGIES: acetaminophen PENICILLINS ENVIRONMENTAL ALLERGIES: - Substance Allergies None Known - Other Allergies None Known NURSING: - Shower allowing shower - Skin care per protocol PRECAUTIONS: - Posterior Hip Precaution No adduction across midline No external rotation No hip flexion >90 degrees No internal rotation No wheel chair propulsion - Weight Bearing Precaution TTWB right LE ACTIVITIES OOB only with supervision THERAPIES: - Occupational Therapy Evaluate and Treat. - Physical Therapy Evaluate and Treat. PHYSICAL EXAM - Gen Alert and awake Lying in bed No apparent distress Oriented to: person, time, and place - Skin No breakdowns No abnormalities - Eyes No abnormalities - ENMT No abnormalities - Neck No abnormalities - CVS RRR - Chest No abnormalities - Resp Clear to auscultation - Abd + bowel sounds - GI Soft Deferred - No abnormalities - Ext Moderate edema in both lower extremities. - MSK 4+/5 weakness in both lower extremities. - Neuro No focal deficits - Psych No abnormalities ASSESSMENT: Pt. is a 42 yo Right-handed female.On 03/04/2018 she was admitted to [facility] and underwent emergency surgery for Right hip comminuted intertrochanteric and subtrochante david femur fracture (Unilateral Hip Fracture) by Zara Morris.Pre-morbidly, Pt. was independent/mod- I in Communication, Social Cognition, Self-Care, Sphincter Control, Transfers Control, and Locomotion ; and she had good Sphincter Control.Currently, she has deficits of Communication, Social Cognition, Balance, Endurance, Safety Awareness, Transfers Control, Locomotion, and Self-Care.Pt. is now referre d to [facility] for acute in-patient rehabilitation in order to maximize patie nt's functional independence in activities of daily living, strength, ROM, and mobility.- Rehab Goal Patient has realistic goal of being discharged at assistance level 3-modA to reside at Home with Fam riaz/Relatives. MDM/PLAN: - Physical Therapy Decreased range of motion - to improve, our physical therapists will perform initial evaluation of p t's status upon admission and devise an individualized program for increasing patient's Range of Alvino on. Gait dysfunction - to improve, our physical therapists will perform initial evaluation of pt's statu s upon admission and devise an individualized program for Gait Training, and Wheel Chair mobility Inability to transfer - to improve, our physical therapists will perform initial evaluation of pt's status upon admission and devise an individualized program for Bed mobility Need for home safety evaluation - to improve, our physical therapists will perform initial evaluatio n of pt's status upon admission and devise an individualized program for Home Evaluation Need in caregiver upon discharge - to improve, our physical therapists will perform initial evaluati on of pt's status upon admission and devise an individualized program for Caregiver Training New precaution - to improve, our physical therapists will perform initial evaluation of pt's status upon admission and devise an individualized program for Patient precaution education Edema - to improve, our physical therapists will perform initial evaluation of pt's status upon admi ssion and devise an individualized program for Elevation Training, and Lymphedema Therapy Poor balance - to improve, our physical therapists will perform initial evaluation of pt's status up on admission and devise an individualized program for Balance Training Poor endurance - to improve, our physical therapists will perform initial evaluation of pt's status upon admission and devise an individualized program for Endurance Training Weakness - to improve, our physical therapists will perform initial evaluation of pt's status upon a dmission and devise an individualized program for Aquatic Therapy, Neuromuscular Reeducation, and Str engthening Achieving independence - to improve, our physical therapists will perform initial evaluation of pt's status upon admission and devise an individualized program for Community Reintegration Activities - Occupational Therapy ADL deficits - to improve, our occupation therapists will perform initial evaluation of pt's status upon admission and devise an individualized program for Bathing, Bed mobility, Community Reintegratio n, Cooking, Dressing, Eating, Fine Motor Skills, Grooming, Homemaking, Kitchen Mobility, Laundry, Pat ient Education, Safety Awareness, Splinting - Positioning, Transfers(Toilet, Tub, Shower), and Wheel Chair Management Cognitive deficits - to improve, our occupation therapists will perform initial evaluation of pt's s tatus upon admission and devise an individualized program for Cognition - orientation Need for managed care nurse - to improve, our occupation therapists will perform initial evaluation of pt's status upon admission and devise an individualized program for Caregiver Training Weakness - to improve, our occupation therapists will perform initial evaluation of pt's status upon admission and devise an individualized program for Aquatic Therapy, Balance, Endurance, UE ROM, and UE strengthening - Anterior Hip Precaution No abduction No active extension No adduction across midline No external rotation No hip flexion >90 degrees No internal rotation - Diet - Liquid Texture Continue Regular - Tube Feed Continue N/A - Diet Type Continue Regular - Posterior Hip Precaution No adduction across midline No external rotation No hip flexion >90 degrees No internal rotation No wheel chair propulsion - Weight Bearing Precaution TTWB right LE - Skin care per protocol - Diet - Solid Texture Continue Regular - Shower allowing shower FUNCTIONAL STATUS: UPDATED AT WEEKLY TEAM CONFERENCE - Bladder Same accident frequency: 7-Ind - No accidents in the past 7 days - Bowel Same accident frequency: 7-Ind - No accidents in the past 7 days - Walking Same score based on distance walked: 2(50-149ft) FUNCTIONAL STATUS: - Self-Care A. Eating Ind B. Grooming Ind C. Bathing Ind D. Dressing - Upper sup E. Dressing - Lower Ceasar F. Toileting modA - Sphincter Control G: Bladder control Ind H: Bowel control Ind - Transfers Control I. Bed/Chair/Wheelchair sup J. Toilet Ceasar K. Tub/Shower Ceasar - Locomotion L. Walk/Wheelchair (B) modA M. Stairs ADNO - Communication N. Comprehension (B) sup O. Expression (B) sup - Social Cognition P. Social Interaction Ceasar Q. Problem Solving sup R. Memory Deven - Endurance Fair - Balance Fair - Safety Awareness Poor CURRENT FUNC. DEFICITS: Communication, Social Cognition, Balance, Endurance, Safety Awareness, Transfers Control, Locomotion, and Self-Care SIGNATURE PANEL: ([facility])
--- NOTE | 2018-04-03 19:13 | P.PN ---
Subjective Date of Service: 04/03/18 Primary Care Provider: RITA Huff Chief Complaint: Rehab post Hip fracture Subjective: Ambulating, Improving, Working w/ PT, Doing well Review of Systems 10-point ROS is otherwise unremarkable Physical Examination - Vital Signs Temperature: 97.6 F Blood Pressure: 82/60 Pulse: 78 Respirations: 16 Pulse Ox (%): 96 - Physical Exam General: Alert, In no apparent distress HEENT: Atraumatic, PERRLA, EOMI Neck: Supple, JVD not distended Respiratory: Clear to auscultation bilaterally, Normal air movement Cardiovascular: Regular rate/rhythm, Normal S1 S2 Gastrointestinal: Normal bowel sounds, No tenderness Musculoskeletal: No tenderness Integumentary: No rashes Neurological: Normal speech, Normal tone, Normal affect Lymphatics: No axilla or inguinal lymphadenopathy - Studies Microbiology Data (last 24 hrs): 04/02/18 12:55 Stool Occult Blood - Final Medications List Reviewed: Yes Assessment And Plan - Current Problems (Diagnosis) (1) Bilateral lower leg cellulitis Onset Date: 02/25/18 Current Visit: No Status: Acute Plan: Bilateral cellulitis to the lower extremity with noted moderate osteomyelitis to the base of the proximal right phalanx on the 5th toe, medial aspect of the 5th metatarsal head, and the majority of the 4th metatarsal head along with moderate osteomyelitis with underlying fracture of the left proximal phalanx of the 5th toe. (2) Fall Current Visit: No Status: Acute Plan: Patient's hospital course was complicated by fall during hospital stay which led to a right femoral fracture. Patient was seen and evaluated by Orthopedics. Patient had open reduction internal fixation. Patient tolerated the procedure well and no complications were noted from that. Qualifiers: Encounter type: subsequent encounter Qualified Code(s): W19.XXXD - Unspecified fall, subsequent encounter (3) Right femoral fracture Current Visit: No Status: Acute Qualifiers: Encounter type: subsequent encounter Femur location: unspecified portion of femur Fracture type: closed Fracture morphology: unspecified fracture morphology Fracture healing: with routine healing Qualified Code(s): S72.91XD - Unspecified fracture of right femur, subsequent encounter for closed fracture with routine healing (4) Thrombocytopenia Onset Date: 02/25/18 Current Visit: No Status: Chronic (5) Tobacco abuse counseling Current Visit: No Status: Chronic (6) Cirrhosis Onset Date: 01/15/17 Current Visit: No Status: Chronic Qualifiers: Hepatic cirrhosis type: alcoholic cirrhosis Ascites presence: without ascites Qualified Code(s): K70.30 - Alcoholic cirrhosis of liver without ascites (7) Diabetes mellitus, type II Onset Date: 02/04/18 Current Visit: No Status: Chronic Qualifiers: Diabetes mellitus jail insulin use: without jail use Diabetes mellitus complication status: without complication Qualified Code(s): E11.9 - Type 2 diabetes mellitus without complications Physician Review Additional Text: Continue with physical therapy with emphasis on fall precautions. Plan for discharge is April 07. IV abx 38/42. 4 more days remaining. Will continue. Blood pressure on the lower side today. Case discussed with nephrology. Will decrease Lasix at this time. Will increase midodrine at this time to help with orthostatics hypotension.
--- NOTE | 2018-04-03 20:30 | P.PN ---
Subjective Date of Service: 04/03/18 Primary Care Provider: RITA Huff Chief Complaint: Rehab post Hip fracture Subjective: Improving Pt admitted for pancreatitis, cr at base ,1.0 devloped christine likel;y ATn/AIN from meds Cr stable at 1.8 pt was on lasix for edema today Bp on low side, edema much improved will dc lasix will give albumin will increase midodrine if BP still low , will dc flomax monitor vanco leevl Physical Examination - Vital Signs Temperature: 97.6 F Blood Pressure: 82/60 Pulse: 78 Respirations: 16 Pulse Ox (%): 96 - Physical Exam General: Oriented x3 Neck: Supple, Without JVD or thyroid abnormality Respiratory: Clear to auscultation bilaterally, Normal air movement Cardiovascular: Regular rate/rhythm, Normal S1 S2 (edema on Rt leg ), Edema Gastrointestinal: Normal bowel sounds, Soft and benign - Studies Medications List Reviewed: Yes Assessment And Plan - Current Problems (Diagnosis) (1) CHRISTINE (acute kidney injury) Current Visit: No Status: Acute (2) Anemia Onset Date: 02/04/18 Current Visit: No Status: Chronic (3) Cellulitis in diabetic foot Onset Date: 02/04/18 Current Visit: No Status: Acute (4) Diabetes mellitus, type II Onset Date: 02/04/18 Current Visit: No Status: Chronic Qualifiers: 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 Dose adjusted. Follow up vancomycin trough. Diabetes as per primary Physician Review Additional Text: Continue with physical therapy with emphasis on fall precautions. Plan for discharge is April 07. IV abx 38/42. 4 more days remaining. Will continue. Blood pressure on the lower side today. Case discussed with nephrology. Will decrease Lasix at this time. Will increase midodrine at this time to help with orthostatics hypotension.
[2018-04-03] MEDS: AMITRIPTYLINE 25 MG TAB PO SCH (21:03)
[2018-04-03] MEDS: MELATONIN 3 MG TABLET PO PRN (21:03)
[2018-04-03] MEDS: TAMSULOSIN 0.4 MG SR CAP PO SCH (21:03)
[2018-04-03] MEDS: VANCOMYCIN/NS 1 gm 1 GM/250 ML BAG IVPB SCH (21:04)
[2018-04-04] MEDS: HYDROCODONE/APAP 5/325 MG TAB PO PRN ×2 (06:57→14:23)
[2018-04-04] MEDS: INSULIN GLARGINE 100 UNITS/ML SQ SCH (07:00)
[2018-04-04] MEDS: INSULIN -REGULAR HUMAN 50 UNIT/0.5 ML ML SQ SCH ×4 (07:42→21:25)
[2018-04-04] MEDS: PROMOD 30 ML DOSE PO SCH ×2 (08:00→20:00)
[2018-04-04] MEDS: FE SULF/FA/VIT B COMP & C TAB PO SCH (08:01)
[2018-04-04] MEDS: PANTOPRAZOLE 40MG TABLET PO SCH (08:01)
[2018-04-04] MEDS: FLUOXETINE 20 MG CAP PO SCH (08:01)
[2018-04-04] MEDS: GABAPENTIN 300 MG CAP PO SCH ×2 (08:01→20:01)
[2018-04-04] MEDS: MIDODRINE HCL 5 MG TABLET PO SCH (08:01)
[2018-04-04] MEDS: FERROUS SULFATE 325 MG TAB PO SCH ×2 (08:01→20:01)
[2018-04-04] MEDS: MEDIHONEY 44 ML TOPICAL TUBE TOP SCH (08:49)
[2018-04-04] MEDS: Meropenem 500 MG in NA CHLORIDE 0.9% 100 ML IV SCH ×2 (08:49→20:04)
--- NOTE | 2018-04-04 11:14 | FAST ---
SHIFT START DATE/TIME: 04/04/2018 07:00 ([facility] OUTCOMES LIAISON) SHIFT END DATE/TIME: 04/04/2018 19:00 (HEALTH OUTCOMES LIAISON) NAME DEL JOSUE DATE OF : 1975 DATE OF ADMISSION: 03/24/2018 14:02 (HEALTH OUTCOMES LIAISON) PHONE: AGE: 42 N# [id number] GENDER: Female ENCOUNTER PHYSICIAN: Dr. Praful Triana M.D. ADMISSION DIAGNOSIS: - Orthopaedic Disorders 08 - Unilateral Hip Fracture (08.11) Right hip comminuted intertrochanteric and subtrochanteric femur fracture. EATING: EATING - STEP 1: Does the patient require the assistance of a person or device, or need extra time when eating? Yes. EATING - STEP 2: Does the patient require the assistance of a helper? No, patient only requires an assistive device, O R s/he takes more than reasonable time to eat, OR there is a safety concern, OR s/he requires modifie d food consistency EATING - SCORE: 6-KENZIE GROOMING: Comb/brush hair Oral care GROOMING - STEP 1: Does the patient require the assistance of a person or device, or need extra time when grooming? Yes. GROOMING - STEP 2: Does the patient require the assistance of a helper? No. The patient only requires an assistive devic e, OR takes more than reasonable time to groom, OR there is a concern for safety as the patient groom s GROOMING - SCORE: 6-KENZIE BATHING: Activity did not occur on this shift BATHING - SCORE: 0-UNK DRESSING - UPPER BODY: Activity did not occur on this shift ARTICLES SCORE Total number of steps: 0 DRESSING - UPPER BODY - SCORE: 0-UNK DRESSING - LOWER BODY: Activity did not occur on this shift ARTICLES SCORE Total number of steps: 0 DRESSING - LOWER BODY - SCORE: 0-UNK TOILETING: TOILETING - STEP 1: Does the patient require the assistance of a person or device, or need extra time with toileting? Yes . TOILETING - STEP 2: Does the patient require the assistance of a helper? Yes. TOILETING - STEP 3: How much assistance does the patient require from the helper? Hands-on assistance from the helper TOILETING - STEP 4: Of the 3 tasks: 1) Adjusting clothing prior to use, 2) Cleansing of perineal area, 3) Adjusting clot doug after use; How many tasks does the patient perform WITHOUT assistance of the helper? Three tasks with steadying assistance from the helper TOILETING - SCORE: 4-MIN BLADDER MANAGEMENT: BLADDER MANAGEMENT - STEP 1: Does the patient control the bladder completely and intentionally without equipment or devices or med ications, and is always continent? No. BLADDER MANAGEMENT - STEP 2: Does the patient require the assistance of a helper? No, patient requires and independently uses an a ssistive device, such as a urinal, bedpan, bedside commode, catheter, absorbent pad, or collecting de vice BLADDER MANAGEMENT - SCORE: 6-KENZIE BOWEL MANAGEMENT: BOWEL MANAGEMENT - STEP 1: Does the patient control bowels completely and intentionally without equipment devices or medications AND is always continent? No. BOWEL MANAGEMENT - STEP 2: Does the patient require the assistance of a helper? No, patient requires and manages independently a n assistive device such as a bedpan, bedside commode, absorbent pad, incontinent device, or collectin g device BOWEL MANAGEMENT - SCORE: 6-KENZIE TRANSFERS: BED, CHAIR, WHEELCHAIR: TRANSFERS: BED, CHAIR, WHEELCHAIR - STEP 1: Does the patient require assistance of a person or device, or need extra time with bed, chair, or whe elchair transfers? Yes. TRANSFERS: BED, CHAIR, WHEELCHAIR - STEP 2: Does the patient require the assistance of a helper? Yes. TRANSFERS: BED, CHAIR, WHEELCHAIR - STEP 3: How much assistance does the patient require from the helper? Steadying/guiding assistance TRANSFERS: BED, CHAIR, WHEELCHAIR - SCORE: 4-MIN TRANSFERS: TOILET: TRANSFERS: TOILET - STEP 1: Does the patient require the assistance of a person or device, or need extra time with toilet transfe rs? Yes. TRANSFERS: TOILET - STEP 2: Does the patient require the assistance of a helper? Yes. TRANSFERS: TOILET - STEP 3: How much assistance does the patient require from the helper? Patient performs half or more of the tr ansferring tasks TRANSFERS: TOILET - STEP 4: Does the patient need only incidental help such as contact guard or steadying during toilet transfer? Yes. TRANSFERS: TOILET - SCORE: 4-MIN TRANSFERS: SHOWER: Activity did not occur on this shift TRANSFERS: SHOWER - SCORE: 0-UNK TRANSFERS: TUB: Activity did not occur on this shift TRANSFERS: TUB - SCORE: 0-UNK LOCOMOTION: WALK: Activity did not occur on this shift LOCOMOTION: WALK - SCORE: 0-UNK LOCOMOTION: WHEELCHAIR: Activity did not occur on this shift LOCOMOTION: WHEELCHAIR - SCORE: 0-UNK COMPREHENSION: COMPREHENSION: TYPE: Both COMPREHENSION - STEP 1: Does the patient require help from a person or device, or need extra time to understand complex and a bstract ideas (such as current events, finances, discharge planning, medical issues, relationships, e tc)? No. COMPREHENSION - STEP 2: Does the patient need extra time, require an assistive device (such as glasses for visual comprehensi on or a hearing aid for auditory comprehension) or does s/he have mild difficulty understanding compl ex and abstract information? No. COMPREHENSION - SCORE: 7-IND EXPRESSION EXPRESSION: TYPE: Both EXPRESSION - STEP 1: Does the patient require help from a person or device, or need extra time expressing complex and abst ract ideas (such as current events, finances, discharge planning, medical issues, relationships, etc) ? No. EXPRESSION - STEP 2: Does the patient need extra time, require an assistive device (such as augmentive communication syste m or a communication board), OR does s/he have mild difficulty expressing complex and abstract ideas (including mild dysarthria or mild word-find problems)? No. EXPRESSION - SCORE: 7-IND SOCIAL INTERACTION: SOCIAL INTERACTION - STEP 1: Does the patient require a helper to interact with others in social and therapeutic situations? No. SOCIAL INTERACTION - STEP 2: Does the patient need extra time in social situations, OR does s/he interact with staff, other patien ts, and family members ONLY in structured environments, OR does s/he require medication for social in teraction? No. SOCIAL INTERACTION - SCORE: 7-IND PROBLEM SOLVING: PROBLEM SOLVING - STEP 1: Does the patient need help from a person or device, or need extra time to solve complex problems such as managing a checking account or confronting interpersonal problems? No. PROBLEM SOLVING - STEP 2: Does the patient require extra time to make decisions or solve problems, OR does s/he have slight dif ficulty reading, initiating, or self-correcting in unfamiliar situations? No. PROBLEM SOLVING - SCORE: 7-IND MEMORY: MEMORY - STEP 1: Does the patient need help from a person or device, or need extra time to remember frequently encount ered people, daily routines, and executing requests? No. MEMORY - STEP 2: Does the patient have slight difficulty recognizing frequently encountered people, daily routines, or executing requests without the need for repetition or using self-initiated or environmental cues to remember? No. MEMORY - SCORE: 7-IND SIGNATURE PANEL: The following modified sections: Eating - Score, Grooming - Score, Bathing - Score, Dressing - Upper Body - Score, Dressing - Lower Body - Score, Toileting - Score, Bladder Management - Score, Bowel Man agement - Score, Transfers: Bed, Chair, Wheelchair - Score, Transfers: Toilet - Score, Transfers: Radha wer - Score, Transfers: Tub - Score, Locomotion: Walk - Score, Locomotion: Wheelchair - Score, Compre hension - Score, Expression - Score, Social Interaction - Score, Problem Solving - Score, Memory - Sc ore were [electronically] signed by Adonis Davidson on SunApr 04 2018 11:13:01 GMT-0600 (Central Standard Time)
--- NOTE | 2018-04-04 12:16 | P.PN ---
Subjective Date of Service: 04/04/18 Primary Care Provider: RITA Huff Chief Complaint: Rehab post Hip fracture Subjective: No new changes Pt admitted for pancreatitis, cr at base ,1.0 devloped christine likel;y ATn/AIN from meds Cr trending up to 2.2, likely due to prerenal and hypoperfusion lasix on hold will give albumin midodrine increased will dc flomax monitor vanco level Physical Examination - Vital Signs Temperature: 97.0 F Blood Pressure: 99/51 Pulse: 72 Respirations: 16 Pulse Ox (%): 99 - Physical Exam General: In no apparent distress, Oriented x3 Neck: Supple, Without JVD or thyroid abnormality Respiratory: Clear to auscultation bilaterally, Normal air movement Cardiovascular: Regular rate/rhythm, Normal S1 S2 (Rt leg edema ), Edema Gastrointestinal: Normal bowel sounds, Soft and benign - Studies Laboratory Data (last 24 hrs) 04/03/18 21:13: Creatinine 2.19 H Medications List Reviewed: Yes Assessment And Plan - Current Problems (Diagnosis) (1) CHRISTINE (acute kidney injury) Current Visit: No Status: Acute (2) Anemia Onset Date: 02/04/18 Current Visit: No Status: Chronic (3) Cellulitis in diabetic foot Onset Date: 02/04/18 Current Visit: No Status: Acute (4) Diabetes mellitus, type II Onset Date: 02/04/18 Current Visit: No Status: Chronic Qualifiers: Diabetes mellitus group home insulin use: without terminal operator use Diabetes mellitus complication status: without complication Qualified Code(s): E11.9 - Type 2 diabetes mellitus without complications (5) History of alcohol use Current Visit: No Status: Chronic - Plan Acute kidney injury AIN vs ATN initially cr was stable ~1.8 then trend up to 2.2 with low BP Cr now elevated to ~2.2 with low BP Cont to monitor Monitor vanco level daily Wt I/o will dc lasix , will start on albumin will dc flomax will increase midodrine Cirrhosis Anemia BHAVIN and liver cirrhosis completed IV Iron on KOLBY Osteomyelitis, status post debridement. Dose adjusted. Follow up vancomycin trough. Diabetes as per primary
[2018-04-04] MEDS ORDERED: ALBUMIN HUMAN 25% 100 ML IV ONE (15:00)
--- NOTE | 2018-04-04 15:06 | FAST ---
ENCOUNTER DATE AND TIME: 04/04/2018 08:00 ([employer]) NAME DEL JOSUE DATE OF : 1975 DATE OF ADMISSION: 03/24/2018 14:02 ([employer]) PHONE: AGE: 42 SSN# [id number] GENDER: Female ENCOUNTER PHYSICIAN: Dr. Praful Triana M.D. ADMISSION DIAGNOSIS: - Orthopaedic Disorders 08 - Unilateral Hip Fracture (08.11) Right hip comminuted intertrochanteric and subtrochanteric femur fracture. EATING: Activity did not occur on this shift EATING - SCORE: 0-UNK GROOMING: Activity did not occur on this shift GROOMING - SCORE: 0-UNK BATHING: Activity did not occur on this shift BATHING - SCORE: 0-UNK DRESSING - UPPER BODY: Activity did not occur on this shift Patient is not dressing in public clothing ARTICLES SCORE Total number of steps: 0 DRESSING - UPPER BODY - SCORE: 0-UNK DRESSING - LOWER BODY: Activity did not occur on this shift Patient is not dressing in public clothing ARTICLES SCORE Total number of steps: 0 DRESSING - LOWER BODY - SCORE: 0-UNK TOILETING: Activity did not occur on this shift TOILETING - SCORE: 0-UNK BLADDER MANAGEMENT: Activity did not occur on this shift BLADDER MANAGEMENT - SCORE: 7-IND BOWEL MANAGEMENT: Activity did not occur on this shift BOWEL MANAGEMENT - SCORE: 7-IND TRANSFERS: BED, CHAIR, WHEELCHAIR: TRANSFERS: BED, CHAIR, WHEELCHAIR - STEP 1: Does the patient require assistance of a person or device, or need extra time with bed, chair, or whe elchair transfers? Yes. TRANSFERS: BED, CHAIR, WHEELCHAIR - STEP 2: Does the patient require the assistance of a helper? No. Patient only requires an assistive device fo r bed, chair, wheelchair transfers such as a sliding board, grab bar, or brace, OR s/he takes more th an reasonable time, OR there is a safety concern when s/he performs the transfers TRANSFERS: BED, CHAIR, WHEELCHAIR - SCORE: 6-KENZIE TRANSFERS: TOILET: Activity did not occur on this shift TRANSFERS: TOILET - SCORE: 0-UNK TRANSFERS: SHOWER: Activity did not occur on this shift TRANSFERS: SHOWER - SCORE: 0-UNK TRANSFERS: TUB: Activity did not occur on this shift TRANSFERS: TUB - SCORE: 0-UNK LOCOMOTION: WALK: LOCOMOTION: WALK - STEP 1: Does the patient need help from a person or device, or need extra time to walk 150 feet? No. LOCOMOTION: WALK - STEP 2: Does the patient need an assistive device (such as an orthosis, prosthesis, crutches, or walker) to g o 150 feet, OR does s/he take more than reasonable time, OR is there a concern for safety? Yes, the p atient needs an assistive device LOCOMOTION: WALK - SCORE: 6-KENZIE LOCOMOTION: WHEELCHAIR: LOCOMOTION: WHEELCHAIR - STEP 1: Does the patient need help to go 150 feet in a wheelchair? Yes. LOCOMOTION: WHEELCHAIR - STEP 2: How much assistance does the patient need from the helper? Only supervision, cuing, or coaxing LOCOMOTION: WHEELCHAIR - SCORE: 5-SUP LOCOMOTION: STAIRS: Activity did not occur on this shift LOCOMOTION: STAIRS - SCORE: 0-UNK COMPREHENSION: COMPREHENSION - SCORE: 0-UNK EXPRESSION EXPRESSION - SCORE: 0-UNK SOCIAL INTERACTION: SOCIAL INTERACTION - SCORE: 0-UNK PROBLEM SOLVING: PROBLEM SOLVING - SCORE: 0-UNK MEMORY: MEMORY - SCORE: 0-UNK SIGNATURE PANEL: The following modified sections: Transfers: Bed, Chair, Wheelchair - Score, Transfers: Toilet - Score , Locomotion: Walk - Score, Locomotion: Wheelchair - Score, Locomotion: Stairs - Score were [cyndi jay] signed by Evelio Martínez PTA on SunApr 04 2018 15:05:24 GMT-0600 (Central Standard Time)
[2018-04-04] MEDS: LOPERAMIDE HCL 2 MG CAPSULE PO PRN (16:31)
--- NOTE | 2018-04-04 18:52 | R.PN ---
ENCOUNTER DATE AND TIME: 04/04/2018 18:47 ([facility]) NAME DEL JOSUE DATE OF : 1975 DATE OF ADMISSION: 03/24/2018 14:02 ([employer]) Right hip comminuted intertrochanteric and subtrochanteric femur fractureCHIEF COMPLAINT: Right hip fracture SUBJECTIVE: Pt denied any depression. Pt denied any Shortness of Breath. Ambulated 700' with modified independence and TDWB status using a rolling walker. Improved edema in the lower extremities and blood pressures after administering albumin. D/Ronald lasix . Hgn improved to 8.8, glucose 153 to 227. VITAL SIGNS Temperature: 97.6 F SBP/DBP: 110/65 Pulse: 80 Resp: 16 MEDICATION ALLERGIES: acetaminophen PENICILLINS ENVIRONMENTAL ALLERGIES: - Substance Allergies None Known - Other Allergies None Known NURSING: - Shower allowing shower - Skin care per protocol PRECAUTIONS: - Posterior Hip Precaution No adduction across midline No external rotation No hip flexion >90 degrees No internal rotation No wheel chair propulsion - Weight Bearing Precaution TTWB right LE ACTIVITIES OOB only with supervision THERAPIES: - Occupational Therapy Evaluate and Treat. - Physical Therapy Evaluate and Treat. PHYSICAL EXAM - Gen Alert and awake Lying in bed No apparent distress Oriented to: person, time, and place - Skin No breakdowns No abnormalities - Eyes No abnormalities - ENMT No abnormalities - Neck No abnormalities - CVS RRR - Chest No abnormalities - Resp Clear to auscultation - Abd + bowel sounds - GI Soft Deferred - No abnormalities - Ext Moderate edema in both lower extremities. - MSK 4+/5 weakness in both lower extremities. - Neuro No focal deficits - Psych No abnormalities ASSESSMENT: Pt. is a 42 yo Right-handed female.On 03/04/2018 she was admitted to [facility] and underwent emergency surgery for Right hip comminuted intertrochanteric and subtrochante david femur fracture (Unilateral Hip Fracture) by Zara Morris.Pre-morbidly, Pt. was independent/mod- I in Communication, Social Cognition, Self-Care, Sphincter Control, Transfers Control, and Locomotion ; and she had good Sphincter Control.Currently, she has deficits of Communication, Social Cognition, Balance, Endurance, Safety Awareness, Transfers Control, Locomotion, and Self-Care.Pt. is now referre d to [facility] for acute in-patient rehabilitation in order to maximize patie nt's functional independence in activities of daily living, strength, ROM, and mobility.- Rehab Goal Patient has realistic goal of being discharged at assistance level 3-modA to reside at Home with Fam riaz/Relatives. MDM/PLAN: - Physical Therapy Decreased range of motion - to improve, our physical therapists will perform initial evaluation of p t's status upon admission and devise an individualized program for increasing patient's Range of Alvino on. Gait dysfunction - to improve, our physical therapists will perform initial evaluation of pt's statu s upon admission and devise an individualized program for Gait Training, and Wheel Chair mobility Inability to transfer - to improve, our physical therapists will perform initial evaluation of pt's status upon admission and devise an individualized program for Bed mobility Need for home safety evaluation - to improve, our physical therapists will perform initial evaluatio n of pt's status upon admission and devise an individualized program for Home Evaluation Need in caregiver upon discharge - to improve, our physical therapists will perform initial evaluati on of pt's status upon admission and devise an individualized program for Caregiver Training New precaution - to improve, our physical therapists will perform initial evaluation of pt's status upon admission and devise an individualized program for Patient precaution education Edema - to improve, our physical therapists will perform initial evaluation of pt's status upon admi ssion and devise an individualized program for Elevation Training, and Lymphedema Therapy Poor balance - to improve, our physical therapists will perform initial evaluation of pt's status up on admission and devise an individualized program for Balance Training Poor endurance - to improve, our physical therapists will perform initial evaluation of pt's status upon admission and devise an individualized program for Endurance Training Weakness - to improve, our physical therapists will perform initial evaluation of pt's status upon a dmission and devise an individualized program for Aquatic Therapy, Neuromuscular Reeducation, and Str engthening Achieving independence - to improve, our physical therapists will perform initial evaluation of pt's status upon admission and devise an individualized program for Community Reintegration Activities - Occupational Therapy ADL deficits - to improve, our occupation therapists will perform initial evaluation of pt's status upon admission and devise an individualized program for Bathing, Bed mobility, Community Reintegratio n, Cooking, Dressing, Eating, Fine Motor Skills, Grooming, Homemaking, Kitchen Mobility, Laundry, Pat ient Education, Safety Awareness, Splinting - Positioning, Transfers(Toilet, Tub, Shower), and Wheel Chair Management Cognitive deficits - to improve, our occupation therapists will perform initial evaluation of pt's s tatus upon admission and devise an individualized program for Cognition - orientation Need for medical care manager - to improve, our occupation therapists will perform initial evaluation of pt's status upon admission and devise an individualized program for Caregiver Training Weakness - to improve, our occupation therapists will perform initial evaluation of pt's status upon admission and devise an individualized program for Aquatic Therapy, Balance, Endurance, UE ROM, and UE strengthening - Anterior Hip Precaution No abduction No active extension No adduction across midline No external rotation No hip flexion >90 degrees No internal rotation - Diet - Liquid Texture Continue Regular - Tube Feed Continue N/A - Diet Type Continue Regular - Posterior Hip Precaution No adduction across midline No external rotation No hip flexion >90 degrees No internal rotation No wheel chair propulsion - Weight Bearing Precaution TTWB right LE - Skin care per protocol - Diet - Solid Texture Continue Regular - Shower allowing shower FUNCTIONAL STATUS: UPDATED AT WEEKLY TEAM CONFERENCE - Bladder Same accident frequency: 7-Ind - No accidents in the past 7 days - Bowel Same accident frequency: 7-Ind - No accidents in the past 7 days - Walking Same score based on distance walked: 2(50-149ft) FUNCTIONAL STATUS: - Self-Care A. Eating Ind B. Grooming Ind C. Bathing Ind D. Dressing - Upper sup E. Dressing - Lower Ceasar F. Toileting modA - Sphincter Control G: Bladder control Ind H: Bowel control Ind - Transfers Control I. Bed/Chair/Wheelchair sup J. Toilet Ceasar K. Tub/Shower Ceasar - Locomotion L. Walk/Wheelchair (B) modA M. Stairs ADNO - Communication N. Comprehension (B) sup O. Expression (B) sup - Social Cognition P. Social Interaction Ceasar Q. Problem Solving sup R. Memory Deven - Endurance Fair - Balance Fair - Safety Awareness Poor CURRENT FUNC. DEFICITS: Communication, Social Cognition, Balance, Endurance, Safety Awareness, Transfers Control, Locomotion, and Self-Care SIGNATURE PANEL: ([facility])
[2018-04-04] MEDS: AMITRIPTYLINE 25 MG TAB PO SCH (20:01)
[2018-04-04] MEDS: MELATONIN 3 MG TABLET PO PRN (20:01)
[2018-04-05] MEDS: LOPERAMIDE HCL 2 MG CAPSULE PO PRN (02:06)
[2018-04-05 06:35] LABS: Absolute Lymphocytes (CBC) 0.6 K/uL (0.7-4.9); Absolute Monocytes 0.6 K/uL (0.1-1.3); Absolute Neutrophil 4.8 K/uL (1.8-8.0); Basophils % 0.4 % (0-1.3); Eosinophils % 7.2 % (0-4.4); Hematocrit 26.9 % (36.0-45.0); Lymphocytes % 9.7 % (15.3-44.8); MPV 8.6 fL (7.6-11.3); Monocytes % 9.1 % (3.3-12.3); RBC Red Blood Cell Count 3.03 M/uL (3.86-4.86)
[2018-04-05 06:50] LABS: Magnesium 2.8 mg/dL (1.8-2.4); Potassium 4.8 mmol/L (3.5-5.1); Prealbumin 13.5 mg/dL (20-40)
[2018-04-05] MEDS: INSULIN -REGULAR HUMAN 50 UNIT/0.5 ML ML SQ SCH ×4 (07:30→20:19)
[2018-04-05] MEDS: Meropenem 500 MG in NA CHLORIDE 0.9% 100 ML IV SCH ×2 (07:53→20:18)
[2018-04-05] MEDS: GABAPENTIN 300 MG CAP PO SCH ×2 (07:54→20:17)
[2018-04-05] MEDS: INSULIN GLARGINE 100 UNITS/ML SQ SCH (07:54)
[2018-04-05] MEDS: MEDIHONEY 44 ML TOPICAL TUBE TOP SCH (07:54)
[2018-04-05] MEDS: PANTOPRAZOLE 40MG TABLET PO SCH (07:54)
[2018-04-05] MEDS: FE SULF/FA/VIT B COMP & C TAB PO SCH (07:54)
[2018-04-05] MEDS: FLUOXETINE 20 MG CAP PO SCH (07:54)
[2018-04-05] MEDS: MIDODRINE HCL 5 MG TABLET PO SCH (07:54)
[2018-04-05] MEDS: FERROUS SULFATE 325 MG TAB PO SCH ×2 (07:54→20:18)
[2018-04-05] MEDS: PROMOD 30 ML DOSE PO SCH ×3 (07:55→20:18)
--- NOTE | 2018-04-05 10:00 | P.RH.PN ---
Estimated Length of Stay: 16 Expected Discharge Date: 04/08/18 Discharge Disposition Plan: Home Family Support: Yes [facility] Goal: Mobility, Transfers, Self Care Vital Signs: Last Vital Signs Temp 97.0 F 04/04/18 22:18 Pulse 76 04/04/18 22:18 Resp 18 04/04/18 22:18 BP 117/69 04/04/18 22:18 Pulse Ox 98 04/04/18 22:18 Laboratory: Laboratory Last Values WBC 6.5 K/uL (4.3-10.9) D 04/05/18 05:45 RBC 3.03 M/uL (3.86-4.86) L 04/05/18 05:45 Hgb 9.2 g/dL (12.0-15.0) L 04/05/18 05:45 Hct 26.9 % (36.0-45.0) L 04/05/18 05:45 MCV 88.9 fL (80-100) 04/05/18 05:45 MCH 30.3 pg (27.0-35.0) 04/05/18 05:45 MCHC 34.1 g/dL (32.0-36.0) 04/05/18 05:45 RDW 17.2 % (12.1-15.2) H 04/05/18 05:45 Plt Count 141 K/uL (152-406) L 04/05/18 05:45 MPV 8.6 fL (7.6-11.3) 04/05/18 05:45 Neutrophils % 73.6 % (41.7-73.7) 04/05/18 05:45 Lymphocytes % 9.7 % (15.3-44.8) L 04/05/18 05:45 Monocytes % 9.1 % (3.3-12.3) 04/05/18 05:45 Eosinophils % 7.2 % (0-4.4) H 04/05/18 05:45 Basophils % 0.4 % (0-1.3) 04/05/18 05:45 Absolute Neutrophils 4.8 K/uL (1.8-8.0) 04/05/18 05:45 Absolute Lymphocytes 0.6 K/uL (0.7-4.9) L 04/05/18 05:45 Absolute Monocytes 0.6 K/uL (0.1-1.3) 04/05/18 05:45 Absolute Eosinophils 0.5 K/uL (0-0.5) 04/05/18 05:45 Absolute Basophils 0.0 K/uL (0-0.5) 04/05/18 05:45 Sodium 141 mmol/L (136-145) 04/05/18 05:45 Potassium 4.8 mmol/L (3.5-5.1) 04/05/18 05:45 Chloride 106 mmol/L (98-107) 04/05/18 05:45 Carbon Dioxide 29 mmol/L (21-32) 04/05/18 05:45 BUN 36 mg/dL (7-18) H 04/05/18 05:45 Creatinine 1.90 mg/dL (0.55-1.3) H 04/05/18 05:45 Estimated GFR 29 mL/min (=/>90) L 04/05/18 05:45 Glucose 160 mg/dL (74-106) H 04/05/18 05:45 POC Glucose 131 mg/dl (65-120) H 04/05/18 08:05 Calcium 8.7 mg/dL (8.5-10.1) 04/05/18 05:45 Magnesium 2.8 mg/dL (1.8-2.4) H D 04/05/18 05:45 Iron 55.0 ug/dL (50-170) 03/30/18 20:13 TIBC 277 ug/dL (250-460) 03/30/18 20:13 Transferrin 198 mg/dL (200-360) L 03/30/18 20:13 Transferrin % Sat 19.9 % (20.0-50.0) L 03/30/18 20:13 Ferritin 883.2 ng/mL (8-388) H 03/30/18 20:13 Albumin 3.0 g/dL (3.4-5.0) L D 04/05/18 05:45 Prealbumin 13.5 mg/dL (20-40) L 04/05/18 05:45 Urine Color Yellow 03/24/18 21:55 Urine Appearance Clear 03/24/18 21:55 Urine pH 7.5 (5.0-7.0) H 03/24/18 21:55 Ur Specific [place] 1.010 (1.005-1.030) 03/24/18 21:55 Urine Ketones Negative (NEG) 03/24/18 21:55 Urine Blood Negative (NEG) 03/24/18 21:55 Urine Nitrite Negative (NEG) 03/24/18 21:55 Urine Bilirubin Negative (NEG) 03/24/18 21:55 Urine Urobilinogen 0.2 mg/dL (0.2-1.0) 03/24/18 21:55 Ur Leukocyte Esterase 1+ (NEG) H 03/24/18 21:55 Urine RBC <5 /HPF (NONE SEEN) 03/24/18 21:55 Urine WBC 5-10 /HPF (<5) H 03/24/18 21:55 Ur Squamous Epith Cells <5 /HPF (NONE SEEN) 03/24/18 21:55 Urine Bacteria <20 /HPF (<20) 03/24/18 21:55 Urine Culture Reflexed Reflexed 03/24/18 21:55 Urine Glucose Negative (NEG) 03/24/18 21:55 Urine Total Protein Negative (NEG) 03/24/18 21:55 Vancomycin Trough 15.0 ug/mL (5.0-20.0) 04/03/18 21:13 Opiates Screen Negative (NEGATIVE) 03/27/18 21:10 Methadone Screen Negative (NEGATIVE) 03/27/18 21:10 Ur Barbiturates Screen Negative (NEGATIVE) 03/27/18 21:10 Ur Phencyclidine Scrn Negative (NEGATIVE) 03/27/18 21:10 Amphetamines Screen Negative (NEGATIVE) 03/27/18 21:10 Benzodiazepines Screen Negative (NEGATIVE) 03/27/18 21:10 Cocaine Screen Negative (NEGATIVE) 03/27/18 21:10 Ur THC Screen Negative (NEGATIVE) 03/27/18 21:10 Miscellaneous Test Sent 03/27/18 16:34 Weight: 156 lb 6 oz Wound Present: Yes Closed Surgical Incision Present: Yes Negative Pressure Wound Therapy Present: No Physician Update: Her pain medications were not ordered yesterday. Will start norco 5/325 q 4 hours. Her creatinine is still elevated to 1.9. Her prealbumin is still low at 13.5. Hgb is better at 9.2. Her legs are still swollwen but better and BP is mildly low. She walker 500' with modified independence due. Medication Issues: Osteomyelitis - Meropenem 5oomg Q12H IV. Vancomycin 1 gm Q48H IV Pain Issues: [place] 5/325mg Q4H PRN. Tramadol 50mg Q4H PRN Functional Improvement: Patient has met all short-term goals and long-terms at this time, w/ the exception of stairs tx. and car transfers. Patient has shown improvement w/ safety awareness. Functional Improvement Occupational Therapy: pt can benifit with further therapy Cont to educate pt on energy conservation techniques and safety for the TDWB on the right when completing clothing mgmt. cont to educate and train pt on energy conservation techniques for safety and for static standing balance and maintaining TDWB.Cont to increase pt's UB strength for sit to stands while maintaining. Cont with the POC and the goals by the supervising OTR. Summary: Patient's care plan and longterm goals have been reviewed and revised as necessary. Please see the Rehabilitation Signature page for all necessary signatures.
[2018-04-05] MEDS: HYDROCODONE/APAP 5/325 MG TAB PO PRN ×2 (11:03→19:07)
--- NOTE | 2018-04-05 11:29 | P.PN ---
Subjective Date of Service: 04/05/18 Primary Care Provider: RITA Huff Chief Complaint: Rehab post Hip fracture Patient seen and examined at bedside with RN. Chart reviewed. Case discussed with rehab physician and nursing at bedside. Doing well overall no complaints to offer. Blood pressure is stable now. Review of Systems 10-point ROS is otherwise unremarkable Physical Examination - Vital Signs Temperature: 97.2 F Blood Pressure: 96/54 Pulse: 77 Respirations: 16 Pulse Ox (%): 97 - Physical Exam General: Alert, In no apparent distress HEENT: Atraumatic, PERRLA, EOMI Neck: Supple, JVD not distended Respiratory: Clear to auscultation bilaterally, Normal air movement Cardiovascular: Regular rate/rhythm, Normal S1 S2 Gastrointestinal: Normal bowel sounds, No tenderness Musculoskeletal: No tenderness Integumentary: No rashes Neurological: Normal speech, Normal tone, Normal affect Lymphatics: No axilla or inguinal lymphadenopathy - Studies Laboratory Data (last 24 hrs) 04/05/18 05:45: Sodium 141, Potassium 4.8, BUN 36 H, Creatinine 1.90 H, Glucose 160 H, Magnesium 2.8 H D 04/05/18 05:45: WBC 6.5 D, Hgb 9.2 L, Hct 26.9 L, Plt Count 141 L Medications List Reviewed: Yes Assessment And Plan - Current Problems (Diagnosis) (1) Bilateral lower leg cellulitis Onset Date: 02/25/18 Current Visit: No Status: Acute Plan: Bilateral cellulitis to the lower extremity with noted moderate osteomyelitis to the base of the proximal right phalanx on the 5th toe, medial aspect of the 5th metatarsal head, and the majority of the 4th metatarsal head along with moderate osteomyelitis with underlying fracture of the left proximal phalanx of the 5th toe. (2) Fall Current Visit: No Status: Acute Plan: Patient's hospital course was complicated by fall during hospital stay which led to a right femoral fracture. Patient was seen and evaluated by Orthopedics. Patient had open reduction internal fixation. Patient tolerated the procedure well and no complications were noted from that. Qualifiers: Encounter type: subsequent encounter Qualified Code(s): W19.XXXD - Unspecified fall, subsequent encounter (3) Right femoral fracture Current Visit: No Status: Acute Qualifiers: Encounter type: subsequent encounter Femur location: unspecified portion of femur Fracture type: closed Fracture morphology: unspecified fracture morphology Fracture healing: with routine healing Qualified Code(s): S72.91XD - Unspecified fracture of right femur, subsequent encounter for closed fracture with routine healing (4) Thrombocytopenia Onset Date: 02/25/18 Current Visit: No Status: Chronic (5) Tobacco abuse counseling Current Visit: No Status: Chronic (6) Cirrhosis Onset Date: 01/15/17 Current Visit: No Status: Chronic Qualifiers: Hepatic cirrhosis type: alcoholic cirrhosis Ascites presence: without ascites Qualified Code(s): K70.30 - Alcoholic cirrhosis of liver without ascites (7) Diabetes mellitus, type II Onset Date: 02/04/18 Current Visit: No Status: Chronic Qualifiers: Diabetes mellitus long term care social worker insulin use: without longterm use Diabetes mellitus complication status: without complication Qualified Code(s): E11.9 - Type 2 diabetes mellitus without complications - Plan Patient now admitted to inpatient rehab after being referred over for continuous care from acute care setting. Patient is to continue working with physical therapy occupational therapy and speech therapy while here in the hospital. Today is doing well. Blood pressure has stabilized at this time. Lasix was discontinued by nephrology. Is working with physical therapy and occupational therapy and advancing fairly. Patient also is to continue taking her IV antibiotics. Anticipated discharge is on April 08. She will be finishing up her antibiotics on April 07 and will be released from rehab on April 08. Will continue to follow along for any other medical issues during this time. Discharge Plan: Home Plan to discharge in: 48 Hours - Code Status/Comfort Care Code Status Assessed: Yes Critical Care: No
--- NOTE | 2018-04-05 14:08 | FAST ---
SHIFT START DATE/TIME: 04/05/2018 07:00 (CHASER HELPER) SHIFT END DATE/TIME: 04/05/2018 19:00 (CHASER HELPER) NAME DEL JOSUE DATE OF : 1975 DATE OF ADMISSION: 03/24/2018 14:02 (CHASER HELPER) PHONE: AGE: 42 SSN# [id number] GENDER: Female ENCOUNTER PHYSICIAN: Dr. Praful Triana M.D. ADMISSION DIAGNOSIS: - Orthopaedic Disorders 08 - Unilateral Hip Fracture (08.11) Right hip comminuted intertrochanteric and subtrochanteric femur fracture. EATING: EATING - STEP 1: Does the patient require the assistance of a person or device, or need extra time when eating? No. EATING - SCORE: 7-IND GROOMING: GROOMING - STEP 1: Does the patient require the assistance of a person or device, or need extra time when grooming? No. GROOMING - SCORE: 7-IND BATHING: Activity did not occur on this shift BATHING - SCORE: 0-UNK DRESSING - UPPER BODY: ARTICLES SCORE Total number of steps: 0 DRESSING - UPPER BODY - STEP 1: Does the patient require help from a person or device, or need extra time when dressing above the [address]? Yes. DRESSING - UPPER BODY - STEP 2: Does the patient require the assistance of a helper? No. Patient only requires an assistive device, s uch as a button hook, velcro, or ornamental metal erector apprentice. OR s/he takes more than reasonable time as s/he dresses the upper body. OR there is a concern for safety when s/he dresses the upper body DRESSING - UPPER BODY - SCORE: 6-KENZIE DRESSING - LOWER BODY: ARTICLES SCORE Total number of steps: 0 DRESSING - LOWER BODY - STEP 1: Does the patient require help from a person or device, or need extra time when dressing below the j[address]? Yes. DRESSING - LOWER BODY - STEP 2: Does the patient require the assistance of a helper? No. Patient requires an assistive device such as a ornamental metal erector apprentice. OR s/he takes more than reasonable time as s/he dresses the lower body, OR there is a con cern for safety when s/he dresses the lower body DRESSING - LOWER BODY - SCORE: 6-KENZIE TOILETING: TOILETING - STEP 1: Does the patient require the assistance of a person or device, or need extra time with toileting? Yes . TOILETING - STEP 2: Does the patient require the assistance of a helper? No. TOILETING - SCORE: 6-KENZIE BLADDER MANAGEMENT: BLADDER MANAGEMENT - STEP 1: Does the patient control the bladder completely and intentionally without equipment or devices or med ications, and is always continent? Yes. BLADDER MANAGEMENT - SCORE: 7-IND BLADDER MANAGEMENT - FREQUENCY OF ACCIDENTS: BLADDER MANAGEMENT(FA) - STEP 1: How many accidents has the patient had during the current shift? 0 BOWEL MANAGEMENT: BOWEL MANAGEMENT - STEP 1: Does the patient control bowels completely and intentionally without equipment devices or medications AND is always continent? Yes. BOWEL MANAGEMENT - SCORE: 7-IND BOWEL MANAGEMENT - FREQUENCY OF ACCIDENTS: BOWEL MANAGEMENT(FA) - STEP 1: How many accidents has the patient had during the current shift? 0 TRANSFERS: BED, CHAIR, WHEELCHAIR: TRANSFERS: BED, CHAIR, WHEELCHAIR - STEP 1: Does the patient require assistance of a person or device, or need extra time with bed, chair, or whe elchair transfers? Yes. TRANSFERS: BED, CHAIR, WHEELCHAIR - STEP 2: Does the patient require the assistance of a helper? Yes. TRANSFERS: BED, CHAIR, WHEELCHAIR - STEP 3: How much assistance does the patient require from the helper? Only supervision TRANSFERS: BED, CHAIR, WHEELCHAIR - SCORE: 5-SUP TRANSFERS: TOILET: TRANSFERS: TOILET - STEP 1: Does the patient require the assistance of a person or device, or need extra time with toilet transfe rs? Yes. TRANSFERS: TOILET - STEP 2: Does the patient require the assistance of a helper? Yes. TRANSFERS: TOILET - STEP 3: How much assistance does the patient require from the helper? Only supervision, cuing, coaxing, OR he lp to set out transfer equipment or to lock brakes and/or lift foot rests TRANSFERS: TOILET - SCORE: 5-SUP TRANSFERS: SHOWER: Activity did not occur on this shift TRANSFERS: SHOWER - SCORE: 0-UNK TRANSFERS: TUB: Activity did not occur on this shift TRANSFERS: TUB - SCORE: 0-UNK LOCOMOTION: WALK: Activity did not occur on this shift LOCOMOTION: WALK - SCORE: 0-UNK LOCOMOTION: WHEELCHAIR: Activity did not occur on this shift LOCOMOTION: WHEELCHAIR - SCORE: 0-UNK COMPREHENSION: COMPREHENSION - SCORE: 0-UNK EXPRESSION EXPRESSION - SCORE: 0-UNK SOCIAL INTERACTION: SOCIAL INTERACTION - SCORE: 0-UNK PROBLEM SOLVING: PROBLEM SOLVING - SCORE: 0-UNK MEMORY: MEMORY - SCORE: 0-UNK SIGNATURE PANEL: The following modified sections: Eating - Score, Grooming - Score, Bathing - Score, Dressing - Upper Body - Score, Dressing - Lower Body - Score, Toileting - Score, Bladder Management - Score, Bowel Man agement - Score, Transfers: Bed, Chair, Wheelchair - Score, Transfers: Toilet - Score, Transfers: Radha wer - Score, Transfers: Tub - Score, Locomotion: Walk - Score, Locomotion: Wheelchair - Score, Compre hension - Score, Expression - Score, Social Interaction - Score, Problem Solving - Score, Memory - Sc ore were [electronically] signed by Carmelita Lynne CNA on SunApr 05 2018 14:08:01 GMT-0600 (Centra [place] Standard Time)
--- NOTE | 2018-04-05 14:30 | P.PN ---
Subjective Date of Service: 04/07/18 Primary Care Provider: RITA Huff Chief Complaint: Rehab post Hip fracture Subjective: Improving Pt admitted for pancreatitis, cr at base ,1.0 devloped christine likel;y ATn/AIN from meds Cr trending up to 2.2, likely due to prerenal and hypoperfusion and now imrpoved to 1.9 after albumin and holding lasix lasix on hold monitor vanco level Physical Examination - Vital Signs Temperature: 97.2 F Blood Pressure: 96/54 Pulse: 77 Respirations: 16 Pulse Ox (%): 97 - Physical Exam General: In no apparent distress, Oriented x3 HEENT: Atraumatic Neck: Supple, Without JVD or thyroid abnormality Respiratory: Clear to auscultation bilaterally, Normal air movement Cardiovascular: Regular rate/rhythm (Rt leg edema ), Normal S1 S2, Edema Gastrointestinal: Soft and benign - Studies Laboratory Data (last 24 hrs) 04/05/18 05:45: Sodium 141, Potassium 4.8, BUN 36 H, Creatinine 1.90 H, Glucose 160 H, Magnesium 2.8 H D 04/05/18 05:45: WBC 6.5 D, Hgb 9.2 L, Hct 26.9 L, Plt Count 141 L Microbiology Data (last 24 hrs): 04/04/18 23:00 Stool Clostridium difficile Toxin Assay - Final Medications List Reviewed: Yes Assessment And Plan - Current Problems (Diagnosis) (1) CHRISTINE (acute kidney injury) Current Visit: No Status: Acute (2) Anemia Onset Date: 02/04/18 Current Visit: No Status: Chronic (3) Cellulitis in diabetic foot Onset Date: 02/04/18 Current Visit: No Status: Acute (4) Diabetes mellitus, type II Onset Date: 02/04/18 Current Visit: No Status: Chronic Qualifiers: Diabetes mellitus nursing home insulin use: without long term care administrator use Diabetes mellitus complication status: without complication Qualified Code(s): E11.9 - Type 2 diabetes mellitus without complications (5) History of alcohol use Current Visit: No Status: Chronic - Plan Acute kidney injury AIN vs ATN initially cr was stable ~1.8 then trend up to 2.2 with low BP 2nd CHRISTINE due to hypotension and overdiuresis BP normalized now, cr improved to 1.9 Cont to monitor Monitor vanco level daily Wt I/o on discharge , start pt on lasix 40mg po Cirrhosis Anemia BHAVIN and liver cirrhosis completed IV Iron on KOLBY Osteomyelitis, status post debridement. Dose adjusted. Follow up vancomycin trough. Diabetes as per primary
--- NOTE | 2018-04-05 15:02 | FAST ---
ENCOUNTER DATE AND TIME: 04/05/2018 08:00 (TRADE MARK EXAMINER) NAME DEL JOSUE DATE OF : 1975 DATE OF ADMISSION: 03/24/2018 14:02 (TRADE MARK EXAMINER) PHONE: AGE: 42 SSN# [id number] GENDER: Female ENCOUNTER PHYSICIAN: Dr. Praful Triana M.D. ADMISSION DIAGNOSIS: - Orthopaedic Disorders 08 - Unilateral Hip Fracture (08.11) Right hip comminuted intertrochanteric and subtrochanteric femur fracture. EATING: Activity did not occur on this shift EATING - SCORE: 0-UNK GROOMING: Activity did not occur on this shift GROOMING - SCORE: 0-UNK BATHING: Activity did not occur on this shift BATHING - SCORE: 0-UNK DRESSING - UPPER BODY: Activity did not occur on this shift Patient is not dressing in public clothing ARTICLES SCORE Total number of steps: 0 DRESSING - UPPER BODY - SCORE: 0-UNK DRESSING - LOWER BODY: Activity did not occur on this shift Patient is not dressing in public clothing ARTICLES SCORE Total number of steps: 0 DRESSING - LOWER BODY - SCORE: 0-UNK TOILETING: Activity did not occur on this shift TOILETING - SCORE: 0-UNK BLADDER MANAGEMENT: Activity did not occur on this shift BLADDER MANAGEMENT - SCORE: 7-IND BOWEL MANAGEMENT: Activity did not occur on this shift BOWEL MANAGEMENT - SCORE: 7-IND TRANSFERS: BED, CHAIR, WHEELCHAIR: TRANSFERS: BED, CHAIR, WHEELCHAIR - STEP 1: Does the patient require assistance of a person or device, or need extra time with bed, chair, or whe elchair transfers? Yes. TRANSFERS: BED, CHAIR, WHEELCHAIR - STEP 2: Does the patient require the assistance of a helper? No. Patient only requires an assistive device fo r bed, chair, wheelchair transfers such as a sliding board, grab bar, or brace, OR s/he takes more th an reasonable time, OR there is a safety concern when s/he performs the transfers TRANSFERS: BED, CHAIR, WHEELCHAIR - SCORE: 6-KENZIE TRANSFERS: TOILET: Activity did not occur on this shift TRANSFERS: TOILET - SCORE: 0-UNK TRANSFERS: SHOWER: Activity did not occur on this shift TRANSFERS: SHOWER - SCORE: 0-UNK TRANSFERS: TUB: Activity did not occur on this shift TRANSFERS: TUB - SCORE: 0-UNK LOCOMOTION: WALK: LOCOMOTION: WALK - STEP 1: Does the patient need help from a person or device, or need extra time to walk 150 feet? No. LOCOMOTION: WALK - STEP 2: Does the patient need an assistive device (such as an orthosis, prosthesis, crutches, or walker) to g o 150 feet, OR does s/he take more than reasonable time, OR is there a concern for safety? Yes, the p atient needs an assistive device LOCOMOTION: WALK - SCORE: 6-KENZIE LOCOMOTION: WHEELCHAIR: LOCOMOTION: WHEELCHAIR - STEP 1: Does the patient need help to go 150 feet in a wheelchair? No. LOCOMOTION: WHEELCHAIR - SCORE: 6-KENZIE LOCOMOTION: STAIRS: LOCOMOTION: STAIRS - STEP 1: Does the patient need help to go up and down 12 to 14 stairs? Yes. LOCOMOTION: STAIRS - STEP 2: How much assistance does the patient need from the helper to go a minimum of 12 to 14 stairs? The pat ient goes less than 12 stairs, but at least 4 stairs LOCOMOTION: STAIRS - SCORE: 2-MAX COMPREHENSION: COMPREHENSION - SCORE: 0-UNK EXPRESSION EXPRESSION - SCORE: 0-UNK SOCIAL INTERACTION: SOCIAL INTERACTION - SCORE: 0-UNK PROBLEM SOLVING: PROBLEM SOLVING - SCORE: 0-UNK MEMORY: MEMORY - SCORE: 0-UNK SIGNATURE PANEL: The following modified sections: Transfers: Bed, Chair, Wheelchair - Score, Transfers: Toilet - Score , Locomotion: Walk - Score, Locomotion: Wheelchair - Score, Locomotion: Stairs - Score were [[email or web address] [email or web address]] signed by Gael Rosas PT on SunApr 05 2018 15:01:09 GMT-0600 (Central Standard Time)
[2018-04-05] MEDS: MELATONIN 3 MG TABLET PO PRN (20:18)
[2018-04-05] MEDS: AMITRIPTYLINE 25 MG TAB PO SCH (20:18)
[2018-04-05] MEDS: VANCOMYCIN/NS 1 gm 1 GM/250 ML BAG IVPB SCH (21:55)
[2018-04-06] MEDS: HYDROCODONE/APAP 5/325 MG TAB PO PRN ×3 (00:33→21:41)
--- NOTE | 2018-04-06 02:38 | FAST ---
SHIFT START DATE/TIME: 04/05/2018 19:00 (POWER LINEMAN TECHNICIAN) SHIFT END DATE/TIME: 04/06/2018 07:00 (POWER LINEMAN TECHNICIAN) NAME DEL JOSUE DATE OF : 1975 DATE OF ADMISSION: 03/24/2018 14:02 (POWER LINEMAN TECHNICIAN) PHONE: AGE: 42 N# [id number] GENDER: Female ENCOUNTER PHYSICIAN: Dr. Praful Triana M.D. ADMISSION DIAGNOSIS: - Orthopaedic Disorders 08 - Unilateral Hip Fracture (08.11) Right hip comminuted intertrochanteric and subtrochanteric femur fracture. EATING: Activity did not occur on this shift EATING - SCORE: 0-UNK GROOMING: Activity did not occur on this shift GROOMING - SCORE: 0-UNK BATHING: Activity did not occur on this shift BATHING - SCORE: 0-UNK DRESSING - UPPER BODY: Patient is not dressing in public clothing ARTICLES SCORE Total number of steps: 0 DRESSING - UPPER BODY - SCORE: 0-UNK DRESSING - LOWER BODY: Patient is not dressing in public clothing ARTICLES SCORE Total number of steps: 0 DRESSING - LOWER BODY - SCORE: 0-UNK TOILETING: TOILETING - STEP 1: Does the patient require the assistance of a person or device, or need extra time with toileting? Yes . TOILETING - STEP 2: Does the patient require the assistance of a helper? Yes. TOILETING - STEP 3: How much assistance does the patient require from the helper? Only supervision TOILETING - SCORE: 5-SUP BLADDER MANAGEMENT: BLADDER MANAGEMENT - STEP 1: Does the patient control the bladder completely and intentionally without equipment or devices or med ications, and is always continent? No. BLADDER MANAGEMENT - STEP 2: Does the patient require the assistance of a helper? No, patient requires and independently uses an a ssistive device, such as a urinal, bedpan, bedside commode, catheter, absorbent pad, or collecting de vice BLADDER MANAGEMENT - SCORE: 6-KENZIE BOWEL MANAGEMENT: Activity did not occur on this shift BOWEL MANAGEMENT - SCORE: 7-IND TRANSFERS: BED, CHAIR, WHEELCHAIR: TRANSFERS: BED, CHAIR, WHEELCHAIR - STEP 1: Does the patient require assistance of a person or device, or need extra time with bed, chair, or whe elchair transfers? Yes. TRANSFERS: BED, CHAIR, WHEELCHAIR - STEP 2: Does the patient require the assistance of a helper? Yes. TRANSFERS: BED, CHAIR, WHEELCHAIR - STEP 3: How much assistance does the patient require from the helper? Steadying/guiding assistance TRANSFERS: BED, CHAIR, WHEELCHAIR - SCORE: 4-MIN TRANSFERS: TOILET: TRANSFERS: TOILET - STEP 1: Does the patient require the assistance of a person or device, or need extra time with toilet transfe rs? Yes. TRANSFERS: TOILET - STEP 2: Does the patient require the assistance of a helper? Yes. TRANSFERS: TOILET - STEP 3: How much assistance does the patient require from the helper? Only supervision, cuing, coaxing, OR he lp to set out transfer equipment or to lock brakes and/or lift foot rests TRANSFERS: TOILET - SCORE: 5-SUP TRANSFERS: SHOWER: Activity did not occur on this shift TRANSFERS: SHOWER - SCORE: 0-UNK TRANSFERS: TUB: Activity did not occur on this shift TRANSFERS: TUB - SCORE: 0-UNK LOCOMOTION: WALK: Activity did not occur on this shift LOCOMOTION: WALK - SCORE: 0-UNK LOCOMOTION: WHEELCHAIR: Activity did not occur on this shift LOCOMOTION: WHEELCHAIR - SCORE: 0-UNK COMPREHENSION: COMPREHENSION: TYPE: Both COMPREHENSION - STEP 1: Does the patient require help from a person or device, or need extra time to understand complex and a bstract ideas (such as current events, finances, discharge planning, medical issues, relationships, e tc)? No. COMPREHENSION - STEP 2: Does the patient need extra time, require an assistive device (such as glasses for visual comprehensi on or a hearing aid for auditory comprehension) or does s/he have mild difficulty understanding compl ex and abstract information? Yes. COMPREHENSION - SCORE: 6-KENZIE EXPRESSION EXPRESSION: TYPE: Both EXPRESSION - STEP 1: Does the patient require help from a person or device, or need extra time expressing complex and abst ract ideas (such as current events, finances, discharge planning, medical issues, relationships, etc) ? No. EXPRESSION - STEP 2: Does the patient need extra time, require an assistive device (such as augmentive communication syste m or a communication board), OR does s/he have mild difficulty expressing complex and abstract ideas (including mild dysarthria or mild word-find problems)? Yes. EXPRESSION - SCORE: 6-KENZIE SOCIAL INTERACTION: SOCIAL INTERACTION - STEP 1: Does the patient require a helper to interact with others in social and therapeutic situations? No. SOCIAL INTERACTION - STEP 2: Does the patient need extra time in social situations, OR does s/he interact with staff, other patien ts, and family members ONLY in structured environments, OR does s/he require medication for social in teraction? Yes, patient needs extra time SOCIAL INTERACTION - SCORE: 6-KENZIE PROBLEM SOLVING: PROBLEM SOLVING - STEP 1: Does the patient need help from a person or device, or need extra time to solve complex problems such as managing a checking account or confronting interpersonal problems? No. PROBLEM SOLVING - STEP 2: Does the patient require extra time to make decisions or solve problems, OR does s/he have slight dif ficulty reading, initiating, or self-correcting in unfamiliar situations? Yes, patient needs extra ti me. PROBLEM SOLVING - SCORE: 6-KENZIE MEMORY: MEMORY - STEP 1: Does the patient need help from a person or device, or need extra time to remember frequently encount ered people, daily routines, and executing requests? No. MEMORY - STEP 2: Does the patient have slight difficulty recognizing frequently encountered people, daily routines, or executing requests without the need for repetition or using self-initiated or environmental cues to remember? Yes. MEMORY - SCORE: 6-KENZIE
[2018-04-06] MEDS: INSULIN -REGULAR HUMAN 50 UNIT/0.5 ML ML SQ SCH ×4 (07:30→21:33)
[2018-04-06] MEDS: PROMOD 30 ML DOSE PO SCH ×2 (08:00→20:00)
[2018-04-06] MEDS: MEDIHONEY 44 ML TOPICAL TUBE TOP SCH (08:00)
[2018-04-06] MEDS: Meropenem 500 MG in NA CHLORIDE 0.9% 100 ML IV SCH ×2 (08:15→21:34)
[2018-04-06] MEDS: GABAPENTIN 300 MG CAP PO SCH ×2 (08:15→21:34)
[2018-04-06] MEDS: PANTOPRAZOLE 40MG TABLET PO SCH (08:15)
[2018-04-06] MEDS: FE SULF/FA/VIT B COMP & C TAB PO SCH (08:15)
[2018-04-06] MEDS: FERROUS SULFATE 325 MG TAB PO SCH ×2 (08:15→21:35)
[2018-04-06] MEDS: FLUOXETINE 20 MG CAP PO SCH (08:15)
[2018-04-06] MEDS: INSULIN GLARGINE 100 UNITS/ML SQ SCH (08:16)
[2018-04-06] MEDS: MIDODRINE HCL 5 MG TABLET PO SCH (08:21)
[2018-04-06] MEDS: EPOETIN ALFA 10,000 UNIT/ML SQ SCH (11:48)
--- NOTE | 2018-04-06 18:44 | FAST ---
ENCOUNTER DATE AND TIME: 04/06/2018 08:00 (STERILE PRODUCTS PROCESSOR) NAME DEL JOSUE DATE OF : 1975 DATE OF ADMISSION: 03/24/2018 14:02 (STERILE PRODUCTS PROCESSOR) PHONE: AGE: 42 SSN# [id number] GENDER: Female ENCOUNTER PHYSICIAN: Dr. Praful Triana M.D. ADMISSION DIAGNOSIS: - Orthopaedic Disorders 08 - Unilateral Hip Fracture (08.11) Right hip comminuted intertrochanteric and subtrochanteric femur fracture. EATING: Activity did not occur on this shift EATING - SCORE: 0-UNK GROOMING: Wash, rinse, and dry hands GROOMING - STEP 1: Does the patient require the assistance of a person or device, or need extra time when grooming? No. GROOMING - SCORE: 7-IND BATHING: Activity did not occur on this shift BATHING - SCORE: 0-UNK DRESSING - UPPER BODY: Activity did not occur on this shift ARTICLES SCORE Total number of steps: 0 DRESSING - UPPER BODY - SCORE: 0-UNK DRESSING - LOWER BODY: Activity did not occur on this shift ARTICLES SCORE Total number of steps: 0 DRESSING - LOWER BODY - SCORE: 0-UNK TOILETING: TOILETING - STEP 1: Does the patient require the assistance of a person or device, or need extra time with toileting? Yes . TOILETING - STEP 2: Does the patient require the assistance of a helper? No. TOILETING - SCORE: 6-KENZIE BLADDER MANAGEMENT: Activity did not occur on this shift BLADDER MANAGEMENT - SCORE: 7-IND BOWEL MANAGEMENT: Activity did not occur on this shift BOWEL MANAGEMENT - SCORE: 7-IND TRANSFERS: BED, CHAIR, WHEELCHAIR: Activity did not occur on this shift TRANSFERS: BED, CHAIR, WHEELCHAIR - SCORE: 0-UNK TRANSFERS: TOILET: TRANSFERS: TOILET - STEP 1: Does the patient require the assistance of a person or device, or need extra time with toilet transfe rs? Yes. TRANSFERS: TOILET - STEP 2: Does the patient require the assistance of a helper? No. Patient only requires an assistive device street ch as a grab bar or special seat, OR s/he takes more than reasonable time to perform toilet transfers , OR there is a safety concern when s/he performs toilet transfers. TRANSFERS: TOILET - SCORE: 6-KENZIE TRANSFERS: SHOWER: Activity did not occur on this shift TRANSFERS: SHOWER - SCORE: 0-UNK TRANSFERS: TUB: Activity did not occur on this shift TRANSFERS: TUB - SCORE: 0-UNK LOCOMOTION: WALK: Activity did not occur on this shift LOCOMOTION: WALK - SCORE: 0-UNK LOCOMOTION: WHEELCHAIR: Activity did not occur on this shift LOCOMOTION: WHEELCHAIR - SCORE: 0-UNK LOCOMOTION: STAIRS: Activity did not occur on this shift LOCOMOTION: STAIRS - SCORE: 0-UNK COMPREHENSION: COMPREHENSION: TYPE: Both COMPREHENSION - STEP 1: Does the patient require help from a person or device, or need extra time to understand complex and a bstract ideas (such as current events, finances, discharge planning, medical issues, relationships, e tc)? No. COMPREHENSION - STEP 2: Does the patient need extra time, require an assistive device (such as glasses for visual comprehensi on or a hearing aid for auditory comprehension) or does s/he have mild difficulty understanding compl ex and abstract information? Yes. COMPREHENSION - SCORE: 6-KENZIE EXPRESSION EXPRESSION: TYPE: Vocal EXPRESSION - STEP 1: Does the patient require help from a person or device, or need extra time expressing complex and abst ract ideas (such as current events, finances, discharge planning, medical issues, relationships, etc) ? No. EXPRESSION - STEP 2: Does the patient need extra time, require an assistive device (such as augmentive communication syste m or a communication board), OR does s/he have mild difficulty expressing complex and abstract ideas (including mild dysarthria or mild word-find problems)? No. EXPRESSION - SCORE: 7-IND SOCIAL INTERACTION: SOCIAL INTERACTION - STEP 1: Does the patient require a helper to interact with others in social and therapeutic situations? No. SOCIAL INTERACTION - STEP 2: Does the patient need extra time in social situations, OR does s/he interact with staff, other patien ts, and family members ONLY in structured environments, OR does s/he require medication for social in teraction? No. SOCIAL INTERACTION - SCORE: 7-IND PROBLEM SOLVING: PROBLEM SOLVING - STEP 1: Does the patient need help from a person or device, or need extra time to solve complex problems such as managing a checking account or confronting interpersonal problems? No. PROBLEM SOLVING - STEP 2: Does the patient require extra time to make decisions or solve problems, OR does s/he have slight dif ficulty reading, initiating, or self-correcting in unfamiliar situations? Yes, patient has slight dif ficulty reading, initiating, or self-correcting in unfamiliar situations. PROBLEM SOLVING - SCORE: 6-KENZIE MEMORY: MEMORY - STEP 1: Does the patient need help from a person or device, or need extra time to remember frequently encount ered people, daily routines, and executing requests? No. MEMORY - STEP 2: Does the patient have slight difficulty recognizing frequently encountered people, daily routines, or executing requests without the need for repetition or using self-initiated or environmental cues to remember? Yes. MEMORY - SCORE: 6-KENZIE SIGNATURE PANEL: The following modified sections: Eating - Score, Grooming - Score, Bathing - Score, Dressing - Upper Body - Score, Dressing - Lower Body - Score, Toileting - Score, Transfers: Bed, Chair, Wheelchair - S core, Transfers: Toilet - Score, Transfers: Shower - Score, Transfers: Tub - Score, Comprehension - S core, Expression - Score, Social Interaction - Score, Problem Solving - Score, Memory - Score were [e lectronically] signed by Libertad Tom OT on Sat Apr 06 2018 18:42:49 GMT-0600 ([place])
[2018-04-06] MEDS: AMITRIPTYLINE 25 MG TAB PO SCH (21:35)
[2018-04-06] MEDS ORDERED: INSULIN -REGULAR HUMAN 50 UNIT/0.5 ML ML ONE (21:38)
--- NOTE | 2018-04-07 02:06 | FAST ---
SHIFT START DATE/TIME: 04/06/2018 19:00 (TOBACCO DRUMMER) SHIFT END DATE/TIME: 04/07/2018 07:00 (TOBACCO DRUMMER) NAME DEL JOSUE DATE OF : 1975 DATE OF ADMISSION: 03/24/2018 14:02 (TOBACCO DRUMMER) PHONE: AGE: 42 N# [id number] GENDER: Female ENCOUNTER PHYSICIAN: Dr. Praful Triana M.D. ADMISSION DIAGNOSIS: - Orthopaedic Disorders 08 - Unilateral Hip Fracture (08.11) Right hip comminuted intertrochanteric and subtrochanteric femur fracture. EATING: Activity did not occur on this shift EATING - SCORE: 0-UNK GROOMING: Wash, rinse, and dry hands GROOMING - STEP 1: Does the patient require the assistance of a person or device, or need extra time when grooming? Yes. GROOMING - STEP 2: Does the patient require the assistance of a helper? No. The patient only requires an assistive devic e, OR takes more than reasonable time to groom, OR there is a concern for safety as the patient groom s GROOMING - SCORE: 6-KENZIE BATHING: Activity did not occur on this shift BATHING - SCORE: 0-UNK DRESSING - UPPER BODY: Patient is not dressing in public clothing ARTICLES SCORE Total number of steps: 0 DRESSING - UPPER BODY - SCORE: 0-UNK DRESSING - LOWER BODY: Patient is not dressing in public clothing ARTICLES SCORE Total number of steps: 0 DRESSING - LOWER BODY - SCORE: 0-UNK TOILETING: TOILETING - STEP 1: Does the patient require the assistance of a person or device, or need extra time with toileting? Yes . TOILETING - STEP 2: Does the patient require the assistance of a helper? Yes. TOILETING - STEP 3: How much assistance does the patient require from the helper? Only supervision TOILETING - SCORE: 5-SUP BLADDER MANAGEMENT: BLADDER MANAGEMENT - STEP 1: Does the patient control the bladder completely and intentionally without equipment or devices or med ications, and is always continent? Yes. BLADDER MANAGEMENT - SCORE: 7-IND BOWEL MANAGEMENT: Activity did not occur on this shift BOWEL MANAGEMENT - SCORE: 7-IND TRANSFERS: BED, CHAIR, WHEELCHAIR: TRANSFERS: BED, CHAIR, WHEELCHAIR - STEP 1: Does the patient require assistance of a person or device, or need extra time with bed, chair, or whe elchair transfers? Yes. TRANSFERS: BED, CHAIR, WHEELCHAIR - STEP 2: Does the patient require the assistance of a helper? Yes. TRANSFERS: BED, CHAIR, WHEELCHAIR - STEP 3: How much assistance does the patient require from the helper? Only supervision TRANSFERS: BED, CHAIR, WHEELCHAIR - SCORE: 5-SUP TRANSFERS: TOILET: TRANSFERS: TOILET - STEP 1: Does the patient require the assistance of a person or device, or need extra time with toilet transfe rs? Yes. TRANSFERS: TOILET - STEP 2: Does the patient require the assistance of a helper? Yes. TRANSFERS: TOILET - STEP 3: How much assistance does the patient require from the helper? Only supervision, cuing, coaxing, OR he lp to set out transfer equipment or to lock brakes and/or lift foot rests TRANSFERS: TOILET - SCORE: 5-SUP TRANSFERS: SHOWER: Activity did not occur on this shift TRANSFERS: SHOWER - SCORE: 0-UNK TRANSFERS: TUB: Activity did not occur on this shift TRANSFERS: TUB - SCORE: 0-UNK LOCOMOTION: WALK: Activity did not occur on this shift LOCOMOTION: WALK - SCORE: 0-UNK LOCOMOTION: WHEELCHAIR: Activity did not occur on this shift LOCOMOTION: WHEELCHAIR - SCORE: 0-UNK COMPREHENSION: COMPREHENSION: TYPE: Both COMPREHENSION - STEP 1: Does the patient require help from a person or device, or need extra time to understand complex and a bstract ideas (such as current events, finances, discharge planning, medical issues, relationships, e tc)? No. COMPREHENSION - STEP 2: Does the patient need extra time, require an assistive device (such as glasses for visual comprehensi on or a hearing aid for auditory comprehension) or does s/he have mild difficulty understanding compl ex and abstract information? Yes. COMPREHENSION - SCORE: 6-KENZIE EXPRESSION EXPRESSION: TYPE: Both EXPRESSION - STEP 1: Does the patient require help from a person or device, or need extra time expressing complex and abst ract ideas (such as current events, finances, discharge planning, medical issues, relationships, etc) ? No. EXPRESSION - STEP 2: Does the patient need extra time, require an assistive device (such as augmentive communication syste m or a communication board), OR does s/he have mild difficulty expressing complex and abstract ideas (including mild dysarthria or mild word-find problems)? No. EXPRESSION - SCORE: 7-IND SOCIAL INTERACTION: SOCIAL INTERACTION - STEP 1: Does the patient require a helper to interact with others in social and therapeutic situations? No. SOCIAL INTERACTION - STEP 2: Does the patient need extra time in social situations, OR does s/he interact with staff, other patien ts, and family members ONLY in structured environments, OR does s/he require medication for social in teraction? Yes, patient needs extra time SOCIAL INTERACTION - SCORE: 6-KENZIE PROBLEM SOLVING: PROBLEM SOLVING - STEP 1: Does the patient need help from a person or device, or need extra time to solve complex problems such as managing a checking account or confronting interpersonal problems? No. PROBLEM SOLVING - STEP 2: Does the patient require extra time to make decisions or solve problems, OR does s/he have slight dif ficulty reading, initiating, or self-correcting in unfamiliar situations? Yes, patient needs extra ti me. PROBLEM SOLVING - SCORE: 6-KENZIE MEMORY: MEMORY - STEP 1: Does the patient need help from a person or device, or need extra time to remember frequently encount ered people, daily routines, and executing requests? No. MEMORY - STEP 2: Does the patient have slight difficulty recognizing frequently encountered people, daily routines, or executing requests without the need for repetition or using self-initiated or environmental cues to remember? No. MEMORY - SCORE: 7-IND SIGNATURE PANEL: The following modified sections: Eating - Score, Grooming - Score, Dressing - Upper Body - Score, Jens ssing - Lower Body - Score, Toileting - Score, Bladder Management - Score, Bowel Management - Score, Transfers: Bed, Chair, Wheelchair - Score, Transfers: Toilet - Score, Transfers: Shower - Score, Ferr[place] sfers: Tub - Score, Locomotion: Walk - Score, Locomotion: Wheelchair - Score, Comprehension - Score, Expression - Score, Social Interaction - Score, Problem Solving - Score, Memory - Score were [electro nically] signed by Jami Hilton CNA on SunApr 07 2018 02:00:04 GMT-0600 (Central Standard Time)
[2018-04-07] MEDS: INSULIN -REGULAR HUMAN 50 UNIT/0.5 ML ML SQ SCH ×4 (07:30→20:58)
[2018-04-07] MEDS: PROMOD 30 ML DOSE PO SCH ×2 (08:00→20:00)
[2018-04-07] MEDS: MEDIHONEY 44 ML TOPICAL TUBE TOP SCH (08:00)
[2018-04-07] MEDS: FERROUS SULFATE 325 MG TAB PO SCH ×2 (08:02→20:59)
[2018-04-07] MEDS: PANTOPRAZOLE 40MG TABLET PO SCH (08:02)
[2018-04-07] MEDS: FE SULF/FA/VIT B COMP & C TAB PO SCH (08:02)
[2018-04-07] MEDS: GABAPENTIN 300 MG CAP PO SCH ×2 (08:02→20:58)
[2018-04-07] MEDS: FLUOXETINE 20 MG CAP PO SCH (08:03)
[2018-04-07] MEDS: MIDODRINE HCL 5 MG TABLET PO SCH (08:05)
[2018-04-07] MEDS: Meropenem 500 MG in NA CHLORIDE 0.9% 100 ML IV SCH ×2 (08:05→20:57)
[2018-04-07] MEDS: INSULIN GLARGINE 100 UNITS/ML SQ SCH (08:06)
[2018-04-07] MEDS: HYDROCODONE/APAP 5/325 MG TAB PO PRN ×2 (08:45→20:58)
--- NOTE | 2018-04-07 12:47 | P.PN ---
Subjective Date of Service: 04/07/18 Primary Care Provider: RITA Huff Chief Complaint: Rehab post Hip fracture Patient seen and examined at bedside with RN. Chart reviewed. Case discussed with rehab physician and nursing at bedside. Doing well overall no complaints to offer. Blood pressure is stable now. Review of Systems 10-point ROS is otherwise unremarkable Physical Examination - Vital Signs Temperature: 97.2 F Blood Pressure: 96/54 Pulse: 77 Respirations: 16 Pulse Ox (%): 97 - Physical Exam General: Alert, In no apparent distress HEENT: Atraumatic, PERRLA, EOMI Neck: Supple, JVD not distended Respiratory: Clear to auscultation bilaterally, Normal air movement Cardiovascular: Regular rate/rhythm, Normal S1 S2 Gastrointestinal: Normal bowel sounds, No tenderness Musculoskeletal: No tenderness Integumentary: No rashes Neurological: Normal speech, Normal tone, Normal affect Lymphatics: No axilla or inguinal lymphadenopathy - Studies Medications List Reviewed: Yes Assessment And Plan - Current Problems (Diagnosis) (1) Bilateral lower leg cellulitis Onset Date: 02/25/18 Current Visit: No Status: Acute Plan: Bilateral cellulitis to the lower extremity with noted moderate osteomyelitis to the base of the proximal right phalanx on the 5th toe, medial aspect of the 5th metatarsal head, and the majority of the 4th metatarsal head along with moderate osteomyelitis with underlying fracture of the left proximal phalanx of the 5th toe. (2) Fall Current Visit: No Status: Acute Plan: Patient's hospital course was complicated by fall during hospital stay which led to a right femoral fracture. Patient was seen and evaluated by Orthopedics. Patient had open reduction internal fixation. Patient tolerated the procedure well and no complications were noted from that. Qualifiers: Encounter type: subsequent encounter Qualified Code(s): W19.XXXD - Unspecified fall, subsequent encounter (3) Right femoral fracture Current Visit: No Status: Acute Qualifiers: Encounter type: subsequent encounter Femur location: unspecified portion of femur Fracture type: closed Fracture morphology: unspecified fracture morphology Fracture healing: with routine healing Qualified Code(s): S72.91XD - Unspecified fracture of right femur, subsequent encounter for closed fracture with routine healing (4) Thrombocytopenia Onset Date: 02/25/18 Current Visit: No Status: Chronic (5) Tobacco abuse counseling Current Visit: No Status: Chronic (6) Cirrhosis Onset Date: 01/15/17 Current Visit: No Status: Chronic Qualifiers: Hepatic cirrhosis type: alcoholic cirrhosis Ascites presence: without ascites Qualified Code(s): K70.30 - Alcoholic cirrhosis of liver without ascites (7) Diabetes mellitus, type II Onset Date: 02/04/18 Current Visit: No Status: Chronic Qualifiers: 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 Patient is to continue working with physical therapy occupational therapy and speech therapy while here in the hospital. Today is doing well. Blood pressure has stabilized at this time. Lasix was discontinued by nephrology. Is working with physical therapy and occupational therapy and advancing fairly. Patient also is to continue taking her IV antibiotics. Anticipated discharge is on April 08. She will be finishing up her antibiotics on April 07 and will be released from rehab on April 08. Will continue to follow along for any other medical issues during this time. Physician Review Additional Text: Continue with physical therapy with emphasis on fall precautions. Plan for discharge is April 07. IV abx 38/42. 4 more days remaining. Will continue. Blood pressure on the lower side today. Case discussed with nephrology. Will decrease Lasix at this time. Will increase midodrine at this time to help with orthostatics hypotension.
--- NOTE | 2018-04-07 13:33 | P.PN ---
Subjective Date of Service: 04/09/18 Primary Care Provider: RITA Huff Chief Complaint: Rehab post Hip fracture Subjective: Improving Pt admitted for pancreatitis, cr at base ,1.0 devloped christine likel;y ATn/AIN from meds Cr trending up to 2.2, likely due to prerenal and hypoperfusion and now imrpoved to 1.9 after albumin and holding lasix lasix on hold monitor vanco level will rpt labs tomorrow if Cr ~2.0 then can be discharged from nephrology point of view Physical Examination - Vital Signs Temperature: 97.2 F Blood Pressure: 96/54 Pulse: 77 Respirations: 16 Pulse Ox (%): 97 - Studies Medications List Reviewed: Yes Assessment And Plan - Current Problems (Diagnosis) (1) CHRISTINE (acute kidney injury) Status: Acute (2) Anemia Onset Date: 02/04/18 Status: Chronic (3) Cellulitis in diabetic foot Onset Date: 02/04/18 Status: Acute (4) Diabetes mellitus, type II Onset Date: 02/04/18 Status: Chronic Qualifiers: Diabetes mellitus manager terminal insulin use: without chcf use Diabetes mellitus complication status: without complication Qualified Code(s): E11.9 - Type 2 diabetes mellitus without complications (5) History of alcohol use Status: Chronic - Plan Acute kidney injury AIN vs ATN initially cr was stable ~1.8 then trend up to 2.2 with low BP 2nd CHRISTINE due to hypotension and overdiuresis BP normalized now, cr improved to 1.9 Cont to monitor Monitor vanco level daily Wt I/o on discharge , start pt on lasix 40mg po Cirrhosis Anemia BHAVIN and liver cirrhosis completed IV Iron on KOLBY Osteomyelitis, status post debridement. Dose adjusted. Follow up vancomycin trough. Diabetes as per primary
--- NOTE | 2018-04-07 14:37 | FAST ---
SHIFT START DATE/TIME: 04/06/2018 07:00 (PIN DRAFTING MACHINE TENDER) SHIFT END DATE/TIME: 04/06/2018 19:00 (PIN DRAFTING MACHINE TENDER) NAME DEL JOSUE DATE OF : 1975 DATE OF ADMISSION: 03/24/2018 14:02 (PIN DRAFTING MACHINE TENDER) PHONE: AGE: 42 SSN# [id number] GENDER: Female ENCOUNTER PHYSICIAN: Dr. Praful Triana M.D. ADMISSION DIAGNOSIS: - Orthopaedic Disorders 08 - Unilateral Hip Fracture (08.11) Right hip comminuted intertrochanteric and subtrochanteric femur fracture. EATING: EATING - STEP 1: Does the patient require the assistance of a person or device, or need extra time when eating? Yes. EATING - STEP 2: Does the patient require the assistance of a helper? No, patient only requires an assistive device, O R s/he takes more than reasonable time to eat, OR there is a safety concern, OR s/he requires modifie d food consistency EATING - SCORE: 6-KENZIE GROOMING: Comb/brush hair Oral care Wash, rinse, and dry face Wash, rinse, and dry hands GROOMING - STEP 1: Does the patient require the assistance of a person or device, or need extra time when grooming? Yes. GROOMING - STEP 2: Does the patient require the assistance of a helper? No. The patient only requires an assistive devic e, OR takes more than reasonable time to groom, OR there is a concern for safety as the patient groom s GROOMING - SCORE: 6-KENZIE BATHING: Activity did not occur on this shift BATHING - SCORE: 0-UNK DRESSING - UPPER BODY: Bra (three steps) T-shirt/pullover shirt (four steps) ARTICLES SCORE Total number of steps: 7 DRESSING - UPPER BODY - STEP 1: Does the patient require help from a person or device, or need extra time when dressing above the [address]? Yes. DRESSING - UPPER BODY - STEP 2: Does the patient require the assistance of a helper? No. Patient only requires an assistive device, s uch as a button hook, velcro, or cardiac sonographer. OR s/he takes more than reasonable time as s/he dresses the upper body. OR there is a concern for safety when s/he dresses the upper body DRESSING - UPPER BODY - SCORE: 6-KENZIE DRESSING - LOWER BODY: Elastic waist pants (three steps) Underwear (three steps) ARTICLES SCORE Total number of steps: 6 DRESSING - LOWER BODY - STEP 1: Does the patient require help from a person or device, or need extra time when dressing below the jaylen st? Yes. DRESSING - LOWER BODY - STEP 2: Does the patient require the assistance of a helper? No. Patient requires an assistive device such as a cardiac sonographer. OR s/he takes more than reasonable time as s/he dresses the lower body, OR there is a con cern for safety when s/he dresses the lower body DRESSING - LOWER BODY - SCORE: 6-KENZIE TOILETING: TOILETING - STEP 1: Does the patient require the assistance of a person or device, or need extra time with toileting? Yes . TOILETING - STEP 2: Does the patient require the assistance of a helper? No. TOILETING - SCORE: 6-KENZIE BLADDER MANAGEMENT: BLADDER MANAGEMENT - STEP 1: Does the patient control the bladder completely and intentionally without equipment or devices or med ications, and is always continent? No. BLADDER MANAGEMENT - STEP 2: Does the patient require the assistance of a helper? No, patient requires and independently uses an a ssistive device, such as a urinal, bedpan, bedside commode, catheter, absorbent pad, or collecting de vice BLADDER MANAGEMENT - SCORE: 6-KENZIE BLADDER MANAGEMENT - FREQUENCY OF ACCIDENTS: BLADDER MANAGEMENT(FA) - STEP 1: How many accidents has the patient had during the current shift? 0 BOWEL MANAGEMENT: BOWEL MANAGEMENT - STEP 1: Does the patient control bowels completely and intentionally without equipment devices or medications AND is always continent? No. BOWEL MANAGEMENT - STEP 2: Does the patient require the assistance of a helper? No, patient requires extra time BOWEL MANAGEMENT - SCORE: 6-KENZIE BOWEL MANAGEMENT - FREQUENCY OF ACCIDENTS: BOWEL MANAGEMENT(FA) - STEP 1: How many accidents has the patient had during the current shift? 0 TRANSFERS: BED, CHAIR, WHEELCHAIR: TRANSFERS: BED, CHAIR, WHEELCHAIR - STEP 1: Does the patient require assistance of a person or device, or need extra time with bed, chair, or whe elchair transfers? Yes. TRANSFERS: BED, CHAIR, WHEELCHAIR - STEP 2: Does the patient require the assistance of a helper? Yes. TRANSFERS: BED, CHAIR, WHEELCHAIR - STEP 3: How much assistance does the patient require from the helper? Steadying/guiding assistance TRANSFERS: BED, CHAIR, WHEELCHAIR - SCORE: 4-MIN TRANSFERS: TOILET: TRANSFERS: TOILET - STEP 1: Does the patient require the assistance of a person or device, or need extra time with toilet transfe rs? No. TRANSFERS: TOILET - SCORE: 7-IND TRANSFERS: SHOWER: Activity did not occur on this shift TRANSFERS: SHOWER - SCORE: 0-UNK TRANSFERS: TUB: Patient requires more than one helper and/or the use of a mechanical lift is utilized TRANSFERS: TUB - SCORE: 1-DEP LOCOMOTION: WALK: Activity did not occur on this shift LOCOMOTION: WALK - SCORE: 0-UNK LOCOMOTION: WHEELCHAIR: LOCOMOTION: WHEELCHAIR - STEP 1: Does the patient need help to go 150 feet in a wheelchair? Yes. LOCOMOTION: WHEELCHAIR - STEP 2: How much assistance does the patient need from the helper? Only supervision, cuing, or coaxing LOCOMOTION: WHEELCHAIR - SCORE: 5-SUP COMPREHENSION: COMPREHENSION: TYPE: Both COMPREHENSION - STEP 1: Does the patient require help from a person or device, or need extra time to understand complex and a bstract ideas (such as current events, finances, discharge planning, medical issues, relationships, e tc)? No. COMPREHENSION - STEP 2: Does the patient need extra time, require an assistive device (such as glasses for visual comprehensi on or a hearing aid for auditory comprehension) or does s/he have mild difficulty understanding compl ex and abstract information? Yes. COMPREHENSION - SCORE: 6-KENZIE EXPRESSION EXPRESSION: TYPE: Both EXPRESSION - STEP 1: Does the patient require help from a person or device, or need extra time expressing complex and abst ract ideas (such as current events, finances, discharge planning, medical issues, relationships, etc) ? No. EXPRESSION - STEP 2: Does the patient need extra time, require an assistive device (such as augmentive communication syste m or a communication board), OR does s/he have mild difficulty expressing complex and abstract ideas (including mild dysarthria or mild word-find problems)? Yes. EXPRESSION - SCORE: 6-KENZIE SOCIAL INTERACTION: SOCIAL INTERACTION - STEP 1: Does the patient require a helper to interact with others in social and therapeutic situations? No. SOCIAL INTERACTION - STEP 2: Does the patient need extra time in social situations, OR does s/he interact with staff, other patien ts, and family members ONLY in structured environments, OR does s/he require medication for social in teraction? No. SOCIAL INTERACTION - SCORE: 7-IND PROBLEM SOLVING: PROBLEM SOLVING - STEP 1: Does the patient need help from a person or device, or need extra time to solve complex problems such as managing a checking account or confronting interpersonal problems? Yes. PROBLEM SOLVING - STEP 2: Does the patient solve basic routine problems half or more of the time? Yes. PROBLEM SOLVING - STEP 3: How often does the patient need help to solve basic routine problems? Less than 10% of the time PROBLEM SOLVING - SCORE: 5-SUP MEMORY: MEMORY - STEP 1: Does the patient need help from a person or device, or need extra time to remember frequently encount ered people, daily routines, and executing requests? Yes. MEMORY - STEP 2: How often does the patient need help to remember frequently encountered people, daily routines, and e xecuting requests? Less than 10% of the time MEMORY - SCORE: 5-SUP SIGNATURE PANEL: The following modified sections: Eating - Score, Grooming - Score, Bathing - Score, Dressing - Upper Body - Score, Dressing - Lower Body - Score, Toileting - Score, Bladder Management - Score, Bowel Man agement - Score, Transfers: Bed, Chair, Wheelchair - Score, Transfers: Toilet - Score, Transfers: Radha wer - Score, Transfers: Tub - Score, Locomotion: Walk - Score, Locomotion: Wheelchair - Score, Compre hension - Score, Expression - Score, Social Interaction - Score, Problem Solving - Score, Memory - Sc ore were [electronically] signed by Darlene Mobley C.N.A. on SunApr 07 2018 14:36:10 GMT-0600 ([facility] Standard Time)
--- NOTE | 2018-04-07 14:55 | FAST ---
SHIFT START DATE/TIME: 04/07/2018 07:00 (SLATE ROOFER HELPER) SHIFT END DATE/TIME: 04/07/2018 19:00 (SLATE ROOFER HELPER) NAME DEL JOSUE DATE OF : 1975 DATE OF ADMISSION: 03/24/2018 14:02 (SLATE ROOFER HELPER) PHONE: AGE: 42 SSN# [id number] GENDER: Female ENCOUNTER PHYSICIAN: Dr. Praful Triana M.D. ADMISSION DIAGNOSIS: - Orthopaedic Disorders 08 - Unilateral Hip Fracture (08.11) Right hip comminuted intertrochanteric and subtrochanteric femur fracture. EATING: EATING - STEP 1: Does the patient require the assistance of a person or device, or need extra time when eating? Yes. EATING - STEP 2: Does the patient require the assistance of a helper? No, patient only requires an assistive device, O R s/he takes more than reasonable time to eat, OR there is a safety concern, OR s/he requires modifie d food consistency EATING - SCORE: 6-KENZIE GROOMING: Comb/brush hair Wash, rinse, and dry face Wash, rinse, and dry hands GROOMING - STEP 1: Does the patient require the assistance of a person or device, or need extra time when grooming? Yes. GROOMING - STEP 2: Does the patient require the assistance of a helper? No. The patient only requires an assistive devic e, OR takes more than reasonable time to groom, OR there is a concern for safety as the patient groom s GROOMING - SCORE: 6-KENZIE BATHING: Activity did not occur on this shift BATHING - SCORE: 0-UNK DRESSING - UPPER BODY: T-shirt/pullover shirt (four steps) ARTICLES SCORE Total number of steps: 4 DRESSING - UPPER BODY - STEP 1: Does the patient require help from a person or device, or need extra time when dressing above the jaylen st? Yes. DRESSING - UPPER BODY - STEP 2: Does the patient require the assistance of a helper? No. Patient only requires an assistive device, s uch as a button hook, velcro, or zipper trimmer. OR s/he takes more than reasonable time as s/he dresses the upper body. OR there is a concern for safety when s/he dresses the upper body DRESSING - UPPER BODY - SCORE: 6-KENZIE DRESSING - LOWER BODY: Elastic waist pants (three steps) Slip-on shoe - Left foot (one step) Slip-on shoe - Right foot (one step) Sock - Left foot (one step) Sock - Right foot (one step) Underwear (three steps) ARTICLES SCORE Total number of steps: 10 DRESSING - LOWER BODY - STEP 1: Does the patient require help from a person or device, or need extra time when dressing below the jaylen st? Yes. DRESSING - LOWER BODY - STEP 2: Does the patient require the assistance of a helper? No. Patient requires an assistive device such as a zipper trimmer. OR s/he takes more than reasonable time as s/he dresses the lower body, OR there is a con cern for safety when s/he dresses the lower body DRESSING - LOWER BODY - SCORE: 6-KENZIE TOILETING: TOILETING - STEP 1: Does the patient require the assistance of a person or device, or need extra time with toileting? Yes . TOILETING - STEP 2: Does the patient require the assistance of a helper? No. TOILETING - SCORE: 6-KENZIE BLADDER MANAGEMENT: BLADDER MANAGEMENT - STEP 1: Does the patient control the bladder completely and intentionally without equipment or devices or med ications, and is always continent? No. BLADDER MANAGEMENT - STEP 2: Does the patient require the assistance of a helper? No, patient requires and independently uses an a ssistive device, such as a urinal, bedpan, bedside commode, catheter, absorbent pad, or collecting de vice BLADDER MANAGEMENT - SCORE: 6-KENZIE BLADDER MANAGEMENT - FREQUENCY OF ACCIDENTS: BLADDER MANAGEMENT(FA) - STEP 1: How many accidents has the patient had during the current shift? 0 BOWEL MANAGEMENT: Activity did not occur on this shift BOWEL MANAGEMENT - SCORE: 7-IND BOWEL MANAGEMENT - FREQUENCY OF ACCIDENTS: BOWEL MANAGEMENT(FA) - STEP 1: How many accidents has the patient had during the current shift? 0 TRANSFERS: BED, CHAIR, WHEELCHAIR: TRANSFERS: BED, CHAIR, WHEELCHAIR - STEP 1: Does the patient require assistance of a person or device, or need extra time with bed, chair, or whe elchair transfers? Yes. TRANSFERS: BED, CHAIR, WHEELCHAIR - STEP 2: Does the patient require the assistance of a helper? Yes. TRANSFERS: BED, CHAIR, WHEELCHAIR - STEP 3: How much assistance does the patient require from the helper? Steadying/guiding assistance TRANSFERS: BED, CHAIR, WHEELCHAIR - SCORE: 4-MIN TRANSFERS: TOILET: TRANSFERS: TOILET - STEP 1: Does the patient require the assistance of a person or device, or need extra time with toilet transfe rs? Yes. TRANSFERS: TOILET - STEP 2: Does the patient require the assistance of a helper? Yes. TRANSFERS: TOILET - STEP 3: How much assistance does the patient require from the helper? Patient performs half or more of the tr ansferring tasks TRANSFERS: TOILET - STEP 4: Does the patient need only incidental help such as contact guard or steadying during toilet transfer? Yes. TRANSFERS: TOILET - SCORE: 4-MIN TRANSFERS: SHOWER: Activity did not occur on this shift TRANSFERS: SHOWER - SCORE: 0-UNK TRANSFERS: TUB: Activity did not occur on this shift TRANSFERS: TUB - SCORE: 0-UNK LOCOMOTION: WALK: Activity did not occur on this shift LOCOMOTION: WALK - SCORE: 0-UNK LOCOMOTION: WHEELCHAIR: Activity did not occur on this shift LOCOMOTION: WHEELCHAIR - SCORE: 0-UNK COMPREHENSION: COMPREHENSION: TYPE: Both COMPREHENSION - STEP 1: Does the patient require help from a person or device, or need extra time to understand complex and a bstract ideas (such as current events, finances, discharge planning, medical issues, relationships, e tc)? No. COMPREHENSION - STEP 2: Does the patient need extra time, require an assistive device (such as glasses for visual comprehensi on or a hearing aid for auditory comprehension) or does s/he have mild difficulty understanding compl ex and abstract information? Yes. COMPREHENSION - SCORE: 6-KENZIE EXPRESSION EXPRESSION: TYPE: Both EXPRESSION - STEP 1: Does the patient require help from a person or device, or need extra time expressing complex and abst ract ideas (such as current events, finances, discharge planning, medical issues, relationships, etc) ? No. EXPRESSION - STEP 2: Does the patient need extra time, require an assistive device (such as augmentive communication syste m or a communication board), OR does s/he have mild difficulty expressing complex and abstract ideas (including mild dysarthria or mild word-find problems)? Yes. EXPRESSION - SCORE: 6-KENZIE SOCIAL INTERACTION: SOCIAL INTERACTION - STEP 1: Does the patient require a helper to interact with others in social and therapeutic situations? No. SOCIAL INTERACTION - STEP 2: Does the patient need extra time in social situations, OR does s/he interact with staff, other patien ts, and family members ONLY in structured environments, OR does s/he require medication for social in teraction? No. SOCIAL INTERACTION - SCORE: 7-IND PROBLEM SOLVING: PROBLEM SOLVING - STEP 1: Does the patient need help from a person or device, or need extra time to solve complex problems such as managing a checking account or confronting interpersonal problems? Yes. PROBLEM SOLVING - STEP 2: Does the patient solve basic routine problems half or more of the time? Yes. PROBLEM SOLVING - STEP 3: How often does the patient need help to solve basic routine problems? Less than 10% of the time PROBLEM SOLVING - SCORE: 5-SUP MEMORY: MEMORY - STEP 1: Does the patient need help from a person or device, or need extra time to remember frequently encount ered people, daily routines, and executing requests? No. MEMORY - STEP 2: Does the patient have slight difficulty recognizing frequently encountered people, daily routines, or executing requests without the need for repetition or using self-initiated or environmental cues to remember? No. MEMORY - SCORE: 7-IND SIGNATURE PANEL: The following modified sections: Eating - Score, Grooming - Score, Bathing - Score, Dressing - Upper Body - Score, Dressing - Lower Body - Score, Toileting - Score, Bladder Management - Score, Bowel Man agement - Score, Transfers: Bed, Chair, Wheelchair - Score, Transfers: Toilet - Score, Transfers: Radha wer - Score, Transfers: Tub - Score, Locomotion: Walk - Score, Locomotion: Wheelchair - Score, Compre hension - Score, Expression - Score, Social Interaction - Score, Problem Solving - Score, Memory - Sc ore were [electronically] signed by Darlene Mobley C.N.A. on SunApr 07 2018 14:55:22 GMT-0600 ([facility] Standard Time)
[2018-04-07] MEDS: MELATONIN 3 MG TABLET PO PRN (20:58)
[2018-04-07] MEDS: AMITRIPTYLINE 25 MG TAB PO SCH (20:58)
[2018-04-07] MEDS: VANCOMYCIN/NS 1 gm 1 GM/250 ML BAG IVPB SCH (22:07)
--- NOTE | 2018-04-08 02:17 | FAST ---
SHIFT START DATE/TIME: 04/07/2018 19:00 (FOREPART RASPER) SHIFT END DATE/TIME: 04/08/2018 07:00 (FOREPART RASPER) NAME DEL JOSUE DATE OF : 1975 DATE OF ADMISSION: 03/24/2018 14:02 (FOREPART RASPER) PHONE: AGE: 42 N# [id number] GENDER: Female ENCOUNTER PHYSICIAN: Dr. Praful Triana M.D. ADMISSION DIAGNOSIS: - Orthopaedic Disorders 08 - Unilateral Hip Fracture (08.11) Right hip comminuted intertrochanteric and subtrochanteric femur fracture. EATING: Activity did not occur on this shift EATING - SCORE: 0-UNK GROOMING: Wash, rinse, and dry hands GROOMING - STEP 1: Does the patient require the assistance of a person or device, or need extra time when grooming? Yes. GROOMING - STEP 2: Does the patient require the assistance of a helper? Yes. GROOMING - STEP 3: How much assistance does the patient require from the helper? Only prior equipment preparation/set up from the helper GROOMING - SCORE: 5-SUP BATHING: Activity did not occur on this shift BATHING - SCORE: 0-UNK DRESSING - UPPER BODY: Patient is not dressing in public clothing ARTICLES SCORE Total number of steps: 0 DRESSING - UPPER BODY - SCORE: 0-UNK DRESSING - LOWER BODY: Patient is not dressing in public clothing ARTICLES SCORE Total number of steps: 0 DRESSING - LOWER BODY - SCORE: 0-UNK TOILETING: TOILETING - STEP 1: Does the patient require the assistance of a person or device, or need extra time with toileting? Yes . TOILETING - STEP 2: Does the patient require the assistance of a helper? Yes. TOILETING - STEP 3: How much assistance does the patient require from the helper? Only supervision TOILETING - SCORE: 5-SUP BLADDER MANAGEMENT: BLADDER MANAGEMENT - STEP 1: Does the patient control the bladder completely and intentionally without equipment or devices or med ications, and is always continent? No. BLADDER MANAGEMENT - STEP 2: Does the patient require the assistance of a helper? No, patient only requires extra time BLADDER MANAGEMENT - SCORE: 6-KENZIE BOWEL MANAGEMENT: BOWEL MANAGEMENT - STEP 1: Does the patient control bowels completely and intentionally without equipment devices or medications AND is always continent? No. BOWEL MANAGEMENT - STEP 2: Does the patient require the assistance of a helper? No, patient requires medication for control such as stool softeners, suppositories, laxatives, enemas, or OTC medications BOWEL MANAGEMENT - SCORE: 6-KENZIE TRANSFERS: BED, CHAIR, WHEELCHAIR: TRANSFERS: BED, CHAIR, WHEELCHAIR - STEP 1: Does the patient require assistance of a person or device, or need extra time with bed, chair, or whe elchair transfers? Yes. TRANSFERS: BED, CHAIR, WHEELCHAIR - STEP 2: Does the patient require the assistance of a helper? Yes. TRANSFERS: BED, CHAIR, WHEELCHAIR - STEP 3: How much assistance does the patient require from the helper? Steadying/guiding assistance TRANSFERS: BED, CHAIR, WHEELCHAIR - SCORE: 4-MIN TRANSFERS: TOILET: TRANSFERS: TOILET - STEP 1: Does the patient require the assistance of a person or device, or need extra time with toilet transfe rs? Yes. TRANSFERS: TOILET - STEP 2: Does the patient require the assistance of a helper? No. Patient only requires an assistive device street ch as a grab bar or special seat, OR s/he takes more than reasonable time to perform toilet transfers , OR there is a safety concern when s/he performs toilet transfers. TRANSFERS: TOILET - SCORE: 6-KENZIE TRANSFERS: SHOWER: Activity did not occur on this shift TRANSFERS: SHOWER - SCORE: 0-UNK TRANSFERS: TUB: Activity did not occur on this shift TRANSFERS: TUB - SCORE: 0-UNK LOCOMOTION: WALK: Activity did not occur on this shift LOCOMOTION: WALK - SCORE: 0-UNK LOCOMOTION: WHEELCHAIR: Activity did not occur on this shift LOCOMOTION: WHEELCHAIR - SCORE: 0-UNK COMPREHENSION: COMPREHENSION: TYPE: Both COMPREHENSION - STEP 1: Does the patient require help from a person or device, or need extra time to understand complex and a bstract ideas (such as current events, finances, discharge planning, medical issues, relationships, e tc)? No. COMPREHENSION - STEP 2: Does the patient need extra time, require an assistive device (such as glasses for visual comprehensi on or a hearing aid for auditory comprehension) or does s/he have mild difficulty understanding compl ex and abstract information? Yes. COMPREHENSION - SCORE: 6-KENZIE EXPRESSION EXPRESSION: TYPE: Both EXPRESSION - STEP 1: Does the patient require help from a person or device, or need extra time expressing complex and abst ract ideas (such as current events, finances, discharge planning, medical issues, relationships, etc) ? No. EXPRESSION - STEP 2: Does the patient need extra time, require an assistive device (such as augmentive communication syste m or a communication board), OR does s/he have mild difficulty expressing complex and abstract ideas (including mild dysarthria or mild word-find problems)? No. EXPRESSION - SCORE: 7-IND SOCIAL INTERACTION: SOCIAL INTERACTION - STEP 1: Does the patient require a helper to interact with others in social and therapeutic situations? No. SOCIAL INTERACTION - STEP 2: Does the patient need extra time in social situations, OR does s/he interact with staff, other patien ts, and family members ONLY in structured environments, OR does s/he require medication for social in teraction? Yes, patient needs extra time SOCIAL INTERACTION - SCORE: 6-KENZIE PROBLEM SOLVING: PROBLEM SOLVING - STEP 1: Does the patient need help from a person or device, or need extra time to solve complex problems such as managing a checking account or confronting interpersonal problems? No. PROBLEM SOLVING - STEP 2: Does the patient require extra time to make decisions or solve problems, OR does s/he have slight dif ficulty reading, initiating, or self-correcting in unfamiliar situations? Yes, patient needs extra ti me. PROBLEM SOLVING - SCORE: 6-KENZIE MEMORY: MEMORY - STEP 1: Does the patient need help from a person or device, or need extra time to remember frequently encount ered people, daily routines, and executing requests? No. MEMORY - STEP 2: Does the patient have slight difficulty recognizing frequently encountered people, daily routines, or executing requests without the need for repetition or using self-initiated or environmental cues to remember? No. MEMORY - SCORE: 7-IND SIGNATURE PANEL: The following modified sections: Eating - Score, Grooming - Score, Dressing - Upper Body - Score, Jens ssing - Lower Body - Score, Toileting - Score, Bladder Management - Score, Bowel Management - Score, Transfers: Bed, Chair, Wheelchair - Score, Transfers: Toilet - Score, Transfers: Shower - Score, [place] sfers: Tub - Score, Locomotion: Walk - Score, Locomotion: Wheelchair - Score, Comprehension - Score, Expression - Score, Social Interaction - Score, Problem Solving - Score, Memory - Score were [electro nically] signed by Jami Hilton CNA on SunApr 08 2018 02:16:09 GMT-0600 (Central Standard Time)
[2018-04-08 05:20] LABS: Potassium 4.6 mmol/L (3.5-5.1)
[2018-04-08] MEDS: INSULIN -REGULAR HUMAN 50 UNIT/0.5 ML ML SQ SCH (07:30)
[2018-04-08] MEDS: PROMOD 30 ML DOSE PO SCH (08:00)
[2018-04-08] MEDS: MEDIHONEY 44 ML TOPICAL TUBE TOP SCH (08:00)
[2018-04-08] MEDS: FLUOXETINE 20 MG CAP PO SCH (08:18)
[2018-04-08] MEDS: HYDROCODONE/APAP 5/325 MG TAB PO PRN (08:18)
[2018-04-08] MEDS: GABAPENTIN 300 MG CAP PO SCH (08:18)
[2018-04-08] MEDS: INSULIN GLARGINE 100 UNITS/ML SQ SCH (08:18)
[2018-04-08] MEDS: FE SULF/FA/VIT B COMP & C TAB PO SCH (08:18)
[2018-04-08] MEDS: FERROUS SULFATE 325 MG TAB PO SCH (08:18)
[2018-04-08] MEDS: PANTOPRAZOLE 40MG TABLET PO SCH (08:19)
[2018-04-08] MEDS: MIDODRINE HCL 5 MG TABLET PO SCH (08:19)
[2018-04-08] MEDS ORDERED: FUROSEMIDE 40 MG TABLET PO ONE (09:21)
--- NOTE | 2018-04-08 10:47 | FAST ---
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 Praful Triana M.D. ADMISSION DIAGNOSIS: - Orthopaedic Disorders 08 - Unilateral Hip Fracture (08.11) Right hip comminuted intertrochanteric and subtrochanteric femur fracture. EATING: Activity did not occur on this shift EATING - SCORE: 0-UNK GROOMING: Activity did not occur on this shift GROOMING - SCORE: 0-UNK BATHING: Activity did not occur on this shift BATHING - SCORE: 0-UNK DRESSING - UPPER BODY: Activity did not occur on this shift Patient is not dressing in public clothing ARTICLES SCORE Total number of steps: 0 DRESSING - UPPER BODY - SCORE: 0-UNK DRESSING - LOWER BODY: Activity did not occur on this shift Patient is not dressing in public clothing ARTICLES SCORE Total number of steps: 0 DRESSING - LOWER BODY - SCORE: 0-UNK TOILETING: Activity did not occur on this shift TOILETING - SCORE: 0-UNK BLADDER MANAGEMENT: Activity did not occur on this shift BLADDER MANAGEMENT - SCORE: 7-IND BOWEL MANAGEMENT: Activity did not occur on this shift BOWEL MANAGEMENT - SCORE: 7-IND TRANSFERS: BED, CHAIR, WHEELCHAIR: TRANSFERS: BED, CHAIR, WHEELCHAIR - STEP 1: Does the patient require assistance of a person or device, or need extra time with bed, chair, or whe elchair transfers? Yes. TRANSFERS: BED, CHAIR, WHEELCHAIR - STEP 2: Does the patient require the assistance of a helper? No. Patient only requires an assistive device fo r bed, chair, wheelchair transfers such as a sliding board, grab bar, or brace, OR s/he takes more th an reasonable time, OR there is a safety concern when s/he performs the transfers TRANSFERS: BED, CHAIR, WHEELCHAIR - SCORE: 6-KENZIE TRANSFERS: TOILET: Activity did not occur on this shift TRANSFERS: TOILET - SCORE: 0-UNK TRANSFERS: SHOWER: Activity did not occur on this shift TRANSFERS: SHOWER - SCORE: 0-UNK TRANSFERS: TUB: Activity did not occur on this shift TRANSFERS: TUB - SCORE: 0-UNK LOCOMOTION: WALK: LOCOMOTION: WALK - STEP 1: Does the patient need help from a person or device, or need extra time to walk 150 feet? No. LOCOMOTION: WALK - STEP 2: Does the patient need an assistive device (such as an orthosis, prosthesis, crutches, or walker) to g o 150 feet, OR does s/he take more than reasonable time, OR is there a concern for safety? Yes, the p atient needs an assistive device LOCOMOTION: WALK - SCORE: 6-KENZIE LOCOMOTION: WHEELCHAIR: Activity did not occur on this shift LOCOMOTION: WHEELCHAIR - SCORE: 0-UNK LOCOMOTION: STAIRS: Activity did not occur on this shift LOCOMOTION: STAIRS - SCORE: 0-UNK COMPREHENSION: COMPREHENSION - SCORE: 0-UNK EXPRESSION EXPRESSION - SCORE: 0-UNK SOCIAL INTERACTION: SOCIAL INTERACTION - SCORE: 0-UNK PROBLEM SOLVING: PROBLEM SOLVING - SCORE: 0-UNK MEMORY: MEMORY - SCORE: 0-UNK SIGNATURE PANEL: The following modified sections: Locomotion: Wheelchair - Score, Locomotion: Stairs - Score, Transfer s: Bed, Chair, Wheelchair - Score, Transfers: Bed, Chair, Wheelchair - Score, Transfers: Toilet - Sco re were [electronically] signed by Gael Rosas PT on SunApr 08 2018 10:46:56 GMT-0600 (Central Standard Time)
--- NOTE | 2018-04-08 11:14 | FAST ---
SHIFT START DATE/TIME: 04/08/2018 07:00 (TRAFFIC MANAGER) SHIFT END DATE/TIME: 04/08/2018 19:00 (TRAFFIC MANAGER) NAME DEL JOSUE DATE OF : 1975 DATE OF ADMISSION: 03/24/2018 14:02 (TRAFFIC MANAGER) PHONE: AGE: 42 N# [id number] GENDER: Female ENCOUNTER PHYSICIAN: Dr. Praful Triana M.D. ADMISSION DIAGNOSIS: - Orthopaedic Disorders 08 - Unilateral Hip Fracture (08.11) Right hip comminuted intertrochanteric and subtrochanteric femur fracture. EATING: EATING - STEP 1: Does the patient require the assistance of a person or device, or need extra time when eating? Yes. EATING - STEP 2: Does the patient require the assistance of a helper? No, patient only requires an assistive device, O R s/he takes more than reasonable time to eat, OR there is a safety concern, OR s/he requires modifie d food consistency EATING - SCORE: 6-KENZIE GROOMING: Comb/brush hair Oral care Patient applied make-up GROOMING - STEP 1: Does the patient require the assistance of a person or device, or need extra time when grooming? No. GROOMING - SCORE: 7-IND BATHING: Activity did not occur on this shift BATHING - SCORE: 0-UNK DRESSING - UPPER BODY: Activity did not occur on this shift ARTICLES SCORE Total number of steps: 0 DRESSING - UPPER BODY - SCORE: 0-UNK DRESSING - LOWER BODY: Activity did not occur on this shift ARTICLES SCORE Total number of steps: 0 DRESSING - LOWER BODY - SCORE: 0-UNK TOILETING: TOILETING - STEP 1: Does the patient require the assistance of a person or device, or need extra time with toileting? Yes . TOILETING - STEP 2: Does the patient require the assistance of a helper? Yes. TOILETING - STEP 3: How much assistance does the patient require from the helper? Only supervision TOILETING - SCORE: 5-SUP BLADDER MANAGEMENT: BLADDER MANAGEMENT - STEP 1: Does the patient control the bladder completely and intentionally without equipment or devices or med ications, and is always continent? No. BLADDER MANAGEMENT - STEP 2: Does the patient require the assistance of a helper? No, patient requires and independently uses an a ssistive device, such as a urinal, bedpan, bedside commode, catheter, absorbent pad, or collecting de vice BLADDER MANAGEMENT - SCORE: 6-KENZIE BOWEL MANAGEMENT: Activity did not occur on this shift BOWEL MANAGEMENT - SCORE: 7-IND TRANSFERS: BED, CHAIR, WHEELCHAIR: TRANSFERS: BED, CHAIR, WHEELCHAIR - STEP 1: Does the patient require assistance of a person or device, or need extra time with bed, chair, or whe elchair transfers? Yes. TRANSFERS: BED, CHAIR, WHEELCHAIR - STEP 2: Does the patient require the assistance of a helper? Yes. TRANSFERS: BED, CHAIR, WHEELCHAIR - STEP 3: How much assistance does the patient require from the helper? Only supervision TRANSFERS: BED, CHAIR, WHEELCHAIR - SCORE: 5-SUP TRANSFERS: TOILET: TRANSFERS: TOILET - STEP 1: Does the patient require the assistance of a person or device, or need extra time with toilet transfe rs? Yes. TRANSFERS: TOILET - STEP 2: Does the patient require the assistance of a helper? Yes. TRANSFERS: TOILET - STEP 3: How much assistance does the patient require from the helper? Only supervision, cuing, coaxing, OR he lp to set out transfer equipment or to lock brakes and/or lift foot rests TRANSFERS: TOILET - SCORE: 5-SUP TRANSFERS: SHOWER: Activity did not occur on this shift TRANSFERS: SHOWER - SCORE: 0-UNK TRANSFERS: TUB: Activity did not occur on this shift TRANSFERS: TUB - SCORE: 0-UNK LOCOMOTION: WALK: Activity did not occur on this shift LOCOMOTION: WALK - SCORE: 0-UNK LOCOMOTION: WHEELCHAIR: Activity did not occur on this shift LOCOMOTION: WHEELCHAIR - SCORE: 0-UNK COMPREHENSION: COMPREHENSION: TYPE: Both COMPREHENSION - STEP 1: Does the patient require help from a person or device, or need extra time to understand complex and a bstract ideas (such as current events, finances, discharge planning, medical issues, relationships, e tc)? No. COMPREHENSION - STEP 2: Does the patient need extra time, require an assistive device (such as glasses for visual comprehensi on or a hearing aid for auditory comprehension) or does s/he have mild difficulty understanding compl ex and abstract information? Yes. COMPREHENSION - SCORE: 6-KENZIE EXPRESSION EXPRESSION: TYPE: Both EXPRESSION - STEP 1: Does the patient require help from a person or device, or need extra time expressing complex and abst ract ideas (such as current events, finances, discharge planning, medical issues, relationships, etc) ? No. EXPRESSION - STEP 2: Does the patient need extra time, require an assistive device (such as augmentive communication syste m or a communication board), OR does s/he have mild difficulty expressing complex and abstract ideas (including mild dysarthria or mild word-find problems)? Yes. EXPRESSION - SCORE: 6-KENZIE SOCIAL INTERACTION: SOCIAL INTERACTION - STEP 1: Does the patient require a helper to interact with others in social and therapeutic situations? No. SOCIAL INTERACTION - STEP 2: Does the patient need extra time in social situations, OR does s/he interact with staff, other patien ts, and family members ONLY in structured environments, OR does s/he require medication for social in teraction? Yes, patient needs extra time SOCIAL INTERACTION - SCORE: 6-KENZIE PROBLEM SOLVING: PROBLEM SOLVING - STEP 1: Does the patient need help from a person or device, or need extra time to solve complex problems such as managing a checking account or confronting interpersonal problems? No. PROBLEM SOLVING - STEP 2: Does the patient require extra time to make decisions or solve problems, OR does s/he have slight dif ficulty reading, initiating, or self-correcting in unfamiliar situations? Yes, patient needs extra ti me. PROBLEM SOLVING - SCORE: 6-KENZIE MEMORY: MEMORY - STEP 1: Does the patient need help from a person or device, or need extra time to remember frequently encount ered people, daily routines, and executing requests? No. MEMORY - STEP 2: Does the patient have slight difficulty recognizing frequently encountered people, daily routines, or executing requests without the need for repetition or using self-initiated or environmental cues to remember? Yes. MEMORY - SCORE: 6-KENZIE SIGNATURE PANEL: The following modified sections: Eating - Score, Grooming - Score, Dressing - Lower Body - Score, Dain leting - Score, Dressing - Upper Body - Score, Bathing - Score, Bladder Management - Score, Bowel Man agement - Score, Transfers: Bed, Chair, Wheelchair - Score, Transfers: Toilet - Score, Transfers: Tub - Score, Transfers: Shower - Score, Locomotion: Walk - Score, Locomotion: Wheelchair - Score, Compre hension - Score, Expression - Score, Social Interaction - Score, Problem Solving - Score, Memory - Sc ore were [electronically] signed by Adonis Davidson on SunApr 08 2018 11:13:31 GMT-0600 (Central Standard Time)
[2018-04-09 23:25] VITALS: BP 96/54; TEMP 97.2
== END 2018-04-08 10:26 | disposition home health service (06) | DRG 559 ==
LOC: 5TH 14:02
PROVIDERS: ADMIT Psychiatry & Neurology Neurology with Special Qualifications in Child Neurology; ATTEND Psychiatry & Neurology Neurology with Special Qualifications in Child Neurology
DX: S72.141D Displaced intertrochanteric fracture of right femur, subsequent encounter for closed fracture with routine healing (principal); N17.0 Acute kidney failure with tubular necrosis; L03.116 Cellulitis of left lower limb; L03.115 Cellulitis of right lower limb; N17.9 Acute kidney failure, unspecified; M86.172 Other acute osteomyelitis, left ankle and foot; M86.171 Other acute osteomyelitis, right ankle and foot; N18.4 Chronic kidney disease, stage 4 (severe); B37.0 Candidal stomatitis; E11.40 Type 2 diabetes mellitus with diabetic neuropathy, unspecified; D69.6 Thrombocytopenia, unspecified; K70.30 Alcoholic cirrhosis of liver without ascites; D64.9 Anemia, unspecified; E11.69 Type 2 diabetes mellitus with other specified complication; E11.22 Type 2 diabetes mellitus with diabetic chronic kidney disease; I12.9 Hypertensive chronic kidney disease with stage 1 through stage 4 chronic kidney disease, or unspecified chronic kidney disease; I95.1 Orthostatic hypotension; I73.9 Peripheral vascular disease, unspecified; F41.8 Other specified anxiety disorders
CPT/HCPCS: 36415; 72220; 80048; 80202; 80307; 81001; 82040; 82274; 82565; 82728; 82962; 83540; 83735; 84134; 84466; 85014; 85018; 85025; 87086; 87088; 87493; 90670; 92523; 97110; 97112; 97116; 97162; 97167; 97530; 97542; C9113; J0885; J3370; P9047

== ENCOUNTER 2018-05-10 10:49 | Emergency (ER) | payer OTHER ==
[2018-05-10] MEDS ORDERED: MORPHINE 4 MG/ML SYR ONE (13:49)
[2018-05-10] MEDS ORDERED: ONDANSETRON 4 MG/2 ML VIAL ONE (13:49)
[2018-05-10 13:53] LABS: Absolute Lymphocytes (CBC) 0.7 K/uL (0.7-4.9); Absolute Monocytes 0.4 K/uL (0.1-1.3); Absolute Neutrophil 3.4 K/uL (1.8-8.0); Basophils % 0.5 % (0-1.3); Eosinophils % 6.8 % (0-4.4); Hematocrit 29.5 % (36.0-45.0); Lymphocytes % 15.2 % (15.3-44.8); MPV 9.3 fL (7.6-11.3); Monocytes % 7.3 % (3.3-12.3); RBC Red Blood Cell Count 3.24 M/uL (3.86-4.86)
[2018-05-10 14:01] LABS: Potassium 4.4 mmol/L (3.5-5.1)
[2018-05-10 14:13] LABS: Urine Blood 1+ (NEG); Urine Glucose NEGATIVE (NEG); Urine Protein NEGATIVE (NEG); Urine Specific Gravity 1.015 (1.005-1.030)
--- NOTE | 2018-05-10 14:15 | RAD REPORT ---
EXAM DESCRIPTION: USExtrem Venous W Compress Bil05/10/2018 2:05 pm CLINICAL HISTORY: Right hip pain and swelling COMPARISON: none FINDINGS: The common femoral, superficial femoral, popliteal and posterior tibial veins bilaterally are compressible and demonstrate augmentation. Doppler demonstrates good flow. IMPRESSION: No evidence of deep venous thrombosis involving either lower extremity.
[2018-05-10 14:17] LABS: Protime INR 1.06
--- NOTE | 2018-05-10 14:37 | RAD REPORT ---
EXAM DESCRIPTION: RAD - Hip Right 2 View - 05/10/2018 2:24 pm CLINICAL HISTORY: Right hip pain FINDINGS: Intramedullary jenny and compression screws affix a proximal right femoral fracture. There h as been no significant change in the position of the fracture fragments. Mild displacement persists.
--- NOTE | 2018-05-10 14:43 | RAD REPORT ---
EXAM DESCRIPTION: RAD - Foot Right 3 View - 05/10/2018 2:25 pm CLINICAL HISTORY: Right foot pain FINDINGS: No fracture or dislocation is seen The bones are osteoporotic. Bone destruction involving the proximal aspect of the fifth proximal phal anx and fifth metatarsal head is consistent with osteomyelitis. An erosion of the fourth metatarsal h ead likely represents additional osteomyelitis
--- NOTE | 2018-05-10 16:22 | EDPHYS ---
Physician Documentation [facility] Name: Rosanna York Age: 42 yrs Sex: Female : 1975 Arrival Date: 05/10/2018 Time: 11:07 Bed 24 Private MD: Petra Huff ED Physician James Arias HPI: 05/10 13:20 This 42 yrs old Female presents to ER via Wheelchair with complaints of Foot cp Pain, Hip Pain. 13:20 The patient presents with pain, swelling, tenderness. The complaints affect the cp anterior aspect of right ankle and right hip and right foot. 13:20 Onset: The symptoms/episode began/occurred gradually. Associated signs and symptoms: cp Pertinent negatives fever, numbness, warmth. 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 - Social history:: Smoking status: Patient/guardian denies using tobacco. - Ebola Screening: : No symptoms or risks identified at this time. ROS: 13:30 Constitutional: Negative for body aches, chills, fever, poor PO intake. cp 13:30 Eyes: Negative for injury, pain, redness, and discharge. cp 13:30 ENT: Negative for drainage from ear(s), ear pain, sore throat, difficulty swallowing, difficulty handling secretions. 13:30 Cardiovascular: Negative for chest pain, palpitations. 13:30 Respiratory: Negative for cough, dyspnea on exertion, shortness of breath, wheezing. 13:30 Abdomen/GI: Negative for abdominal pain, nausea, vomiting, and diarrhea, black/tarry stool, rectal bleeding. 13:30 Back: Negative for pain at rest, pain with movement, radiated pain. 13:30 MS/extremity: Positive for pain, swelling, of the right foot and right leg, Negative for injury or acute deformity, decreased range of motion, paresthesias. 13:30 Neuro: Negative for altered mental status, headache, numbness, weakness. 13:30 All other systems are negative. Exam: 13:35 Constitutional: The patient appears in no acute distress, alert, awake, cp non-diaphoretic, non-toxic, well developed, well nourished. 13:35 Head/Face: Normocephalic, atraumatic. cp 13:35 Eyes: Periorbital structures: appear normal, Conjunctiva: normal, no exudate, no injection, Sclera: no appreciated abnormality, Lids and lashes: appear normal, bilaterally. 13:35 ENT: External ear(s): are unremarkable, Nose: is normal, Mouth: Lips: moist, Oral mucosa: pink and intact, moist, Posterior pharynx: is normal, airway is patent, no erythema, no exudate. 13:35 Chest/axilla: Inspection: normal, Palpation: is normal, no crepitus, no tenderness. 13:35 Cardiovascular: Rate: normal, Rhythm: regular, Pulses: Pulses are 2+ in right radial artery, right dorsalis pedis artery, left radial artery and left dorsalis pedis artery. Edema: pedal edema, that is mild, right foot, ankle edema, that is mild, right ankle, JVD: is not appreciated. 13:35 Respiratory: the patient does not display signs of respiratory distress, Respirations: normal, no use of accessory muscles, no retractions, no splinting, no tachypnea, labored breathing, is not present, Breath sounds: are clear throughout, no decreased breath sounds, no stridor, no wheezing. 13:35 Abdomen/GI: Inspection: abdomen appears normal, Palpation: abdomen is soft and non-tender, in all quadrants. 13:35 Musculoskeletal/extremity: Extremities: grossly normal except: noted in the right ankle and right foot and right hip: pain, swelling, tenderness. 13:35 Skin: no open wounds noted on feet, no erythema noted. 13:35 Neuro: Orientation: to person, place \T\ time. Mentation: is normal, Cerebellar function: is grossly normal, Motor: moves all fours, strength is normal, Sensation: is normal. Vital Signs: 11:15 BP 126 / 75; Pulse 66; Resp 16; Temp 98.1; Pulse Ox 100% on R/A; Pain 9/10; hb 13:00 BP 124 / 61; Pulse 63; Resp 18; Pulse Ox 100% on R/A; ca1 14:00 BP 112 / 68; Pulse 68; Resp 18; Pulse Ox 100% on R/A; ca1 15:15 BP 102 / 63; Pulse 71; Resp 18; Pulse Ox 100% on R/A; ca1 16:23 BP 121 / 71; Pulse 65; Resp 18; Pulse Ox 100% on R/A; ca1 MDM: 12:55 Patient medically screened. cp 16:20 Data reviewed: vital signs, nurses notes, lab test result(s), radiologic studies, plain cp films, ultrasound, I have discussed the patient's presentation/case with the attending Emergency Department Physician; and as a result, I will discharge patient. 16:20 Differential diagnosis: sepsis, DVT, cellulitis, osteomyelitis, fracture. Test cp interpretation: by ED physician or midlevel provider: plain radiologic studies. Counseling: I had a detailed discussion with the patient and/or guardian regarding: the historical points, exam findings, and any diagnostic results supporting the discharge/admit diagnosis, lab results, radiology results, the need for outpatient follow up, a family practitioner, to return to the emergency department if symptoms worsen or persist or if there are any questions or concerns that arise at home. Response to treatment: the patient's symptoms have markedly improved after treatment, and as a result, I will discharge patient. 05/10 13:15 Order name: CBC with Diff cp 05/10 14:24 Interpretation: Normal except: WBC 4.8; RBC 3.24; HGB 9.7; HCT 29.5; RDW 16.3; LYM% cp 15.2; EOSINOPHIL % 6.8. 05/10 13:15 Order name: BMP; Complete Time: 14:24 cp 05/10 14:25 Interpretation: Normal except: CL 112; GLUC 166; BUN 22; GFR 48. cp 05/10 13:15 Order name: PT-INR; Complete Time: 14:24 cp 05/10 13:16 Order name: Urine Dipstick--Ancillary (enter results); Complete Time: 14:24 eb 05/10 14:28 Interpretation: Normal except: UBLD 1+. cp 05/10 13:16 Order name: Urine --Ancillary (enter results); Complete Time: 14:24 eb 05/10 16:34 Order name: CBC Smear Scan EDMS 05/10 13:15 Order name: US Extremity Venous W Compression Malvin; Complete Time: 14:24 cp 05/10 14:25 Interpretation: Report reviewed. cp 05/10 13:15 Order name: XRAY Foot RIGHT 3 View cp 05/10 15:29 Interpretation: Report reviewed. cp 05/10 13:15 Order name: XRAY Hip RIGHT 2 view; Complete Time: 14:57 cp 05/10 14:58 Interpretation: Report reviewed. cp 05/10 15:42 Order name: Crutches; Complete Time: 15:53 cp Administered Medications: 13:25 Drug: Zofran 4 mg Route: IVP; Site: right antecubital; ca1 16:22 Follow up: Response: No adverse reaction; Nausea is decreased ca1 13:27 Drug: morphine 4 mg Route: IVP; Site: right antecubital; ca1 16:22 Follow up: Response: No adverse reaction; Pain is decreased ca1 Disposition: 05/10/18 16:21 Discharged to Home. Impression: Pain in right leg, Pain in right foot. - Condition is Stable. - Discharge Instructions: Foot Pain. - Prescriptions for Ibuprofen 800 mg Oral Tablet - take 1 tablet by ORAL route every 8 hours As needed take with food; 30 tablet. Tramadol 50 mg Oral Tablet - take 1 tablet by ORAL route every 8 hours as needed; 15 tablet. - Medication Reconciliation Form, Thank You Letter, Antibiotic Education, Prescription Opioid Use form. - Follow up: Petra Huff; When: next week as scheduled; Reason: Recheck today's complaints. - Problem is new. - Symptoms have improved. Addendum: 05/13/2018 07:48 Co-signature as Attending Physician, James Arias MD I agree with the assessment and k dr plan of care. Signatures: Dispatcher [employer] [facility] James Arias MD MD kdr Abner [place] PA PA cp Ashlee Voss, LYDIA RN Hanna Diaz RN RN ca1 Corrections: (The following items were deleted from the chart) 05/10 16:21 16:21 05/10/2018 16:21 Discharged to Home. Impression: Pain in right leg. Condition is cp Stable. Forms are Medication Reconciliation Form, Thank You Letter, Antibiotic Education, Prescription Opioid Use. Follow up: Petra Huff; When: next week as scheduled; Reason: Recheck today's complaints. Problem is new. Symptoms have improved. cp 16:36 16:21 05/10/2018 16:21 Discharged to Home. Impression: Pain in right leg; Pain in right ca1 foot. Condition is Stable. Forms are Medication Reconciliation Form, Thank You Letter, Antibiotic Education, Prescription Opioid Use. Follow up: Petra Huff; When: next week as scheduled; Reason: Recheck today's complaints. Problem is new. Symptoms have improved. cp
--- NOTE | 2018-05-10 16:22 | ER ---
Nurse's Notes [facility] Name: Rosanna York Age: 42 yrs Sex: Female : 1975 Arrival Date: 05/10/2018 Time: 11:07 Bed 24 Private MD: Petra Huff Diagnosis: Pain in right leg;Pain in right foot Presentation: 05/10 11:12 Presenting complaint: Painful right foot wound x 10 days. Transition of care: patient hb was not received from another setting of care. Onset of symptoms is unknown. Risk Assessment: Do you want to hurt yourself or someone else? Patient reports no desire to harm self or others. Initial Sepsis Screen: Does the patient meet any 2 criteria? No. Patient's initial sepsis screen is negative. Does the patient have a suspected source of infection? No. Patient's initial sepsis screen is negative. Care prior to arrival: None. 11:12 Method Of Arrival: Wheelchair hb 11:12 Acuity: BRYAN 3 hb MANAGER WEALTH MANAGEMENT: 11:20 Unknown ca1 Historical: - Allergies: 11:15 PENICILLINS (Upset stomach); hb - Home Meds: 11:15 Ambien 20 mg Oral 1 tab bedtime [Active]; insulin [Active]; Prozac 40 mg Oral cap 1 cap hb once daily [Active]; Prilosec Oral [Active]; - PMHx: 11:15 Cirrhosis; Diabetes - IDDM; Heart Murmur; Herniated disc; Hypertension; neuropathy; hb Pancreatitis; - Immunization history:: Adult Immunizations up to date. - Social history:: Smoking status: Patient/guardian denies using tobacco. - Ebola Screening: : No symptoms or risks identified at this time. Screenin:50 Abuse screen: Denies threats or abuse. Denies injuries from another. Nutritional ca1 screening: No deficits noted. Tuberculosis screening: No symptoms or risk factors identified. Fall Risk IV access (20 points). Gait- Impaired (20 pts.). Assessment: 12:50 General: Appears in no apparent distress. ill, Behavior is calm, cooperative, ca1 appropriate for age. Pain: Complains of pain in right foot and right leg Pain currently is 9 out of 10 on a pain scale. Neuro: Level of Consciousness is awake, alert, obeys commands, Oriented to person, place, time, situation. Cardiovascular: Heart tones S1 S2 present Capillary refill < 3 seconds Pulses are all present. Respiratory: Airway is patent Respiratory effort is even, labored, Respiratory pattern is regular, symmetrical, Breath sounds are clear bilaterally. GI: Abdomen is flat, non-distended, Bowel sounds present X 4 quads. Abd is soft and non tender X 4 quads. : No signs and/or symptoms were reported regarding the genitourinary system. EENT: Derm: Skin is pink, warm \T\ dry. 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 swollen and thickness on skin on anterior foot. Derm:. Musculoskeletal: Circulation, motion, and sensation intact. Range of motion: limited in right hip and right ankle Swelling present in right foot. 14:00 Reassessment: Patient appears in no apparent distress at this time. Patient and/or ca1 family updated on plan of care and expected duration. Pain level reassessed. Patient is alert, oriented x 3, equal unlabored respirations, skin warm/dry/pink. 14:42 Reassessment: MILY Buckner at bedside. ca1 16:00 Reassessment: Pt instructed on proper usage of crutches. ca1 16:15 Reassessment: Patient appears in no apparent distress at this time. Patient is alert, ca1 oriented x 3, equal unlabored respirations, skin warm/dry/pink. MILY Buckner. Vital Signs: 11:15 BP 126 / 75; Pulse 66; Resp 16; Temp 98.1; Pulse Ox 100% on R/A; Pain 9/10; hb 13:00 BP 124 / 61; Pulse 63; Resp 18; Pulse Ox 100% on R/A; ca1 14:00 BP 112 / 68; Pulse 68; Resp 18; Pulse Ox 100% on R/A; ca1 15:15 BP 102 / 63; Pulse 71; Resp 18; Pulse Ox 100% on R/A; ca1 16:23 BP 121 / 71; Pulse 65; Resp 18; Pulse Ox 100% on R/A; ca1 ED Course: 11:07 Patient arrived in ED. sb2 11:07 Petra Huff is Private Physician. sb2 11:14 Triage completed. hb 11:15 Arm band placed on. hb 12:50 Patient has correct armband on for positive identification. Placed in gown. Bed in low ca1 position. Call light in reach. Side rails up X 1. Pulse ox on. NIBP on. Warm blanket given. 12:55 Abner South PA is PHCP. cp 12:55 James Arias MD is Attending Physician. cp 13:09 Hanna Diaz, RN is Primary Nurse. ca1 13:40 Inserted saline lock: 22 gauge in right antecubital area, using aseptic technique. lt1 13:40 Initial lab(s) drawn, by me, sent to lab. lt1 14:05 US Extremity Venous W Compression Malvin In Process Unspecified. EDMS 14:13 Ultrasound completed. Patient moved to radiology. aa4 14:14 Patient moved to radiology via wheelchair. sw 14:24 XRAY Foot RIGHT 3 View In Process Unspecified. EDMS 14:25 XRAY Hip RIGHT 2 view In Process Unspecified. EDMS 16:20 Petra Huff is Referral Physician. cp 16:32 No provider procedures requiring assistance completed. IV discontinued, intact, ca1 bleeding controlled, No redness/swelling at site. Pressure dressing applied. Administered Medications: 13:25 Drug: Zofran 4 mg Route: IVP; Site: right antecubital; ca1 16:22 Follow up: Response: No adverse reaction; Nausea is decreased ca1 13:27 Drug: morphine 4 mg Route: IVP; Site: right antecubital; ca1 16:22 Follow up: Response: No adverse reaction; Pain is decreased ca1 Outcome: 16:21 Discharge ordered by MD. cp 16:32 Discharged to home via wheelchair. ca1 16:32 Condition: stable 16:32 Discharge instructions given to patient, Instructed on discharge instructions, follow up and referral plans. medication usage, Demonstrated understanding of instructions, follow-up care, medications, Prescriptions given X 2. 16:36 Patient left the ED. ca1 Signatures: Dispatcher [employer] EDMS Candi Jarquin aa4 AxelCrystal crabtree Abner South PA PA cp Ashlee Voss RN RN Margo San sb2 Hanna Diaz RN RN ca1 Joelle Ferrara lt1 Corrections: (The following items were deleted from the chart) 11:16 11:12 Presenting complaint: Painful right foot wound x 10 days. hb hb 14:43 14:42 Reassessment: Abner South at bedside. ca1 ca1 16:23 14:48 BP 102 / 63; Pulse 71bpm; Resp 18bpm; Pulse Ox 100% RA; ca1 ca1
[2018-05-10 16:33] LABS: Blood Morphology Comment NOT SEEN (NOT SEEN); Platelet Estimate ADEQ; Urine White Blood Cell Casts OK
[2018-05-10 16:42] VITALS: TEMP 98.1; O2SAT 100
[2018-05-10 16:47] VITALS: BP 121/71
== END 2018-05-10 16:36 | disposition home or self-care (01) ==
LOC: ER 10:49
DX: M79.671 Pain in right foot (principal); I10 Essential (primary) hypertension; E11.9 Type 2 diabetes mellitus without complications; Z79.4 Long term (current) use of insulin; Z88.0 Allergy status to penicillin
CPT/HCPCS: 36415; 80048; 81003; 81025; 85025; 85610; 93970; 96374; 96375; 99284; J2405

== ENCOUNTER 2018-06-14 11:26 | Emergency (ER) | payer OTHER, SELFPAY ==
--- NOTE | 2018-06-14 13:37 | RAD REPORT ---
EXAM DESCRIPTION: US - Extrem Venous W Compress Malvin - 06/14/2018 1:32 pm CLINICAL HISTORY: Leg pain and swelling COMPARISON: None. TECHNIQUE: Real-time sonographic evaluation of the bilateral lower extremity common femoral, superfi cial femoral, popliteal and posterior tibial veins was performed. FINDINGS: Normal compressibility, flow augmentation, phasic flow and spontaneous flow are identified in the left and right lower extremity common femoral, superficial femoral, popliteal and posterior t ibial veins. No intraluminal filling defects seen. IMPRESSION: No DVT in either lower extremity.
--- NOTE | 2018-06-14 13:57 | RAD REPORT ---
EXAM DESCRIPTION: RAD - Foot Left 3 View - 06/14/2018 1:37 pm CLINICAL HISTORY: Right lower extremity pain and swelling, redness COMPARISON: January 2018 FINDINGS: Old fracture changes are present at the base of the fifth proximal phalanx. Remodeling of the left second proximal phalanx from old fracture noted. Mild IP joint space narrowing seen. There i s degenerative change and joint space narrowing at the first MTP joint. Fracture of the tarsal navicular is evident. There several small bone densities along the anteromedia l margin. There degenerative changes at the navicular medial cuneiform articulation progressive even over the short interval since January 2018. Navicular appears to of rotated. There is widening of th e joint space between the talus and the midfoot. Fracture of the calcaneus is not confirmed. Lucent c hanges in the medial cuneiform are identifiable and fracture is not excluded. Soft tissue swelling is present. No air or foreign body. IMPRESSION: Fracture of the tarsal navicular bone is evident and there are changes the medial cuneif orm that could be fracture as well. There is deformity in the contour of the tarsal navicular bone since the prior study and progressive degenerative change at the navicular medial cuneiform articulation. Widening of the joint space between the talus and cuneiform bones. Ligamentous injury is suspected.
[2018-06-14 14:08] LABS: Absolute Lymphocytes (CBC) 0.5 K/uL (0.7-4.9); Absolute Monocytes 0.8 K/uL (0.1-1.3); Absolute Neutrophil 5.9 K/uL (1.8-8.0); Basophils % 0.3 % (0-1.3); Eosinophils % 1.4 % (0-4.4); Hematocrit 27.9 % (36.0-45.0); Lymphocytes % 7.2 % (15.3-44.8); MPV 8.5 fL (7.6-11.3); Monocytes % 10.5 % (3.3-12.3); RBC Red Blood Cell Count 3.02 M/uL (3.86-4.86)
[2018-06-14 14:26] LABS: ALT/SGPT 24 U/L (12-78); AST/SGOT 41 U/L (15-37); Albumin 2.6 g/dL (3.4-5.0); Alkaline Phosphatase 478 U/L (45-117); BUN Blood Urea Nitrogen 17 mg/dL (7-18); Bicarbonate 27 mmol/L (21-32); Bilirubin Direct 0.8 mg/dL (0-0.2); Bilirubin Total 1.7 mg/dL (0.2-1.0); CKMB Creatine Kinase MB < 1.0 ng/mL (0.3-3.6); Creatine Phosphokinase 51 U/L (26-192); Glucose Level 267 mg/dL (74-106); Lipase 135 U/L (73-393); Potassium 4.1 mmol/L (3.5-5.1); Protein, Total 7.4 g/dL (6.4-8.2); Sodium Level 138 mmol/L (136-145)
[2018-06-14] MEDS ORDERED: VANCOMYCIN 1.25 GM in NA CHLORIDE 0.9% 250 ML IVPB SCH (15:00)
--- NOTE | 2018-06-14 16:04 | ER ---
Nurse's Notes [facility] Name: Rosanna York Age: 42 yrs Sex: Female : 1975 Arrival Date: 06/14/2018 Time: 11:30 Bed 15 Private MD: Petra Huff Diagnosis: Fracture of navicular [scaphoid] of foot Presentation: 06/14 11:40 Presenting complaint: Patient states: RLE pain and swelling on right knee, LLE redness sv x 1 day. Transition of care: patient was not received from another setting of care. Onset of symptoms was June 13, 2018. Care prior to arrival: None. 11:40 Method Of Arrival: Wheelchair sv 11:40 Acuity: BRYAN 3 sv 17:51 Risk Assessment: Do you want to hurt yourself or someone else? Patient reports no aj1 desire to harm self or others. Initial Sepsis Screen: Does the patient meet any 2 criteria? No. Patient's initial sepsis screen is negative. Does the patient have a suspected source of infection? No. Patient's initial sepsis screen is negative. Triage Assessment: 11:40 General: Appears in no apparent distress. uncomfortable, Behavior is calm, cooperative, sv appropriate for age. Pain: Complains of pain in right leg and left leg Pain currently is 10 out of 10 on a pain scale. Neuro: Level of Consciousness is awake, alert, obeys commands, Oriented to person, place, time, situation, Moves all extremities. Respiratory: Respiratory effort is even, unlabored, Respiratory pattern is regular, symmetrical. Musculoskeletal: Reports swelling in BLE. Historical: - Allergies: 11:41 PENICILLINS (Upset stomach); sv - PMHx: 11:41 Cirrhosis; Diabetes - IDDM; Heart Murmur; Herniated disc; Hypertension; neuropathy; sv Pancreatitis; - Immunization history:: Flu vaccine is up to date. - Social history:: Smoking status: Patient/guardian denies using tobacco. - Ebola Screening: : No symptoms or risks identified at this time. Screenin:00 Abuse screen: Denies threats or abuse. Denies injuries from another. Nutritional aj1 screening: No deficits noted. Tuberculosis screening: No symptoms or risk factors identified. 17:52 Fall Risk None identified. aj1 Assessment: 13:00 General: Appears in no apparent distress. uncomfortable, Behavior is cooperative, aj1 restless. Pain: Complains of pain in right leg and left leg Pain does not radiate. Pain currently is 10 out of 10 on a pain scale. Neuro: Level of Consciousness is awake, alert, obeys commands, Oriented to person, place, time, situation, Speech is normal. Cardiovascular: Patient's skin is warm and dry. Cardiovascular: swelling noted to left lower leg, redness noted to left foot. Respiratory: Airway is patent Respiratory effort is even, unlabored, Respiratory pattern is regular, symmetrical. GI: No signs and/or symptoms were reported involving the gastrointestinal system. : No signs and/or symptoms were reported regarding the genitourinary system. EENT: No signs and/or symptoms were reported regarding the EENT system. Derm: No signs and/or symptoms reported regarding the dermatologic system. Skin is pink, warm \T\ dry. Musculoskeletal: No signs and/or symptoms reported regarding the musculoskeletal system. Circulation, motion, and sensation intact. 14:05 Reassessment: Patient appears in no apparent distress at this time. No changes from aj1 previously documented assessment. Patient and/or family updated on plan of care and expected duration. Pain level reassessed. Patient is alert, oriented x 3, equal unlabored respirations, skin warm/dry/pink. 15:07 Reassessment: Patient appears in no apparent distress at this time. No changes from aj1 previously documented assessment. Patient and/or family updated on plan of care and expected duration. Pain level reassessed. Patient is alert, oriented x 3, equal unlabored respirations, skin warm/dry/pink. 16:15 Reassessment: Patient discharge pending completion of IV Vancomycin. aj1 17:15 Reassessment: Patient appears in no apparent distress at this time. No changes from aj1 previously documented assessment. Patient and/or family updated on plan of care and expected duration. Pain level reassessed. Patient is alert, oriented x 3, equal unlabored respirations, skin warm/dry/pink. Vital Signs: 11:42 BP 128 / 79; Pulse 80; Resp 18; Temp 98.9(O); Pulse Ox 98% on R/A; Weight 63.96 kg; sv Height 5 ft. 6 in. (167.64 cm); Pain 10/10; 13:00 BP 119 / 50; Pulse 79; Resp 18; Pulse Ox 97% on R/A; aj1 14:00 BP 116 / 52; Pulse 75; Resp 16; Pulse Ox 100% ; aj1 15:00 BP 109 / 75; Pulse 82; Resp 18; Pulse Ox 99% ; aj1 16:00 BP 112 / 65; Pulse 72; Resp 18; Pulse Ox 99% ; aj1 17:53 BP 126 / 66; Pulse 62; Resp 18; Pulse Ox 99% ; aj1 11:42 Body Mass Index 22.76 (63.96 kg, 167.64 cm) sv ED Course: 11:30 Patient arrived in ED. mr 11:30 Petra Huff is Private Physician. mr 11:41 Triage completed. sv 11:43 Arm band placed on. sv 11:44 Rita Vickers FNP-C [facility]. snw 11:44 Abner Westbrook MD is Attending Physician. snw 13:00 Patient has correct armband on for positive identification. aj1 13:00 No provider procedures requiring assistance completed. aj1 13:24 X-ray completed. Portable x-ray completed in exam room. Patient tolerated procedure jb2 well. 13:29 Sophie Barroso, RN is Primary Nurse. aj1 13:32 US Extremity Venous W Compression Malvin In Process Unspecified. EDMS 13:37 Foot Left 3 View XRAY In Process Unspecified. EDMS 14:20 EKG done, by technical account manager. reviewed by Rita MOJICA. at1 16:43 Orthoglass splint: Posterior short lleg splint applied on left leg. ms 17:51 IV discontinued, intact, bleeding controlled, No redness/swelling at site. Pressure aj1 dressing applied. Administered Medications: 15:01 Drug: vancoMYCIN 1 grams Route: IVPB; Infused Over: 2 hrs; Site: right antecubital; aj1 17:52 Follow up: IV Status: Completed infusion; IV Intake: 250ml aj1 17:25 Drug: fentaNYL (PF) 50 mcg Route: IM; Site: left deltoid; aj1 17:52 Follow up: Response: No adverse reaction; Pain is decreased aj1 Intake: 17:52 IV: 250ml; Total: 250ml. aj1 Outcome: 16:04 Discharge ordered by . snw 17:52 Discharged to home via wheelchair. aj1 17:52 Condition: good 17:52 Discharge instructions given to patient, Instructed on discharge instructions, follow up and referral plans. medication usage, Demonstrated understanding of instructions, follow-up care, medications, Prescriptions given X 1. 17:54 Patient left the ED. aj1 Signatures: Dispatcher [employer] EDSophie Epstein RN RN aj1 Petra Shaw RN RN Rita Walker, RN ORTHOPEDIC-C RN ORTHOPEDIC-Csnw Shagufta Thomas mr Santhosh Sotelo Maria ms Candi Marlow, wildlife removal specialist EKG Tat1
--- NOTE | 2018-06-14 16:05 | EDPHYS ---
Physician Documentation [facility] Name: Rosanna York Age: 42 yrs Sex: Female : 1975 Arrival Date: 06/14/2018 Time: 11:30 Bed 15 Private MD: Petra Huff ED Physician Abner Westbrook HPI: 06/14 13:03 This 42 yrs old Female presents to ER via Wheelchair with complaints of Leg snw Swelling, Leg Pain. 13:03 The patient presents with pain, swelling, tenderness. The complaints affect the dorsum snw of left foot. Context: The problem was sustained at home, resulted from an unknown cause, the patient can partially bear weight, the patient is not able to ambulate, must have assistance, Has w/c, Problem is a result from a previous injury: had jenny to femur per Dr. Keller in Jan. Pt had cellulitis to left lower ext one month ago, improved. 4 days ago pt noted redness to left foot. Onset: The symptoms/episode began/occurred suddenly, and became worse today. Associated signs and symptoms: Pertinent positives: calf tenderness, swelling, right knee pain, of the left leg, Pertinent negatives fever. Severity of symptoms: At their worst the symptoms were moderate, in the emergency department the symptoms are unchanged. The patient has experienced similar episodes in the past, chronically. The patient has been recently seen by a physician: the patient's primary care provider, earlier today, with similar presenting complaints, and was sent to the [facility] Emergency Department for further evaluation, Seedarian Huff NP. Historical: - Allergies: 11:41 PENICILLINS (Upset stomach); sv - PMHx: 11:41 Cirrhosis; Diabetes - IDDM; Heart Murmur; Herniated disc; Hypertension; neuropathy; sv Pancreatitis; - Immunization history:: Flu vaccine is up to date. - Social history:: Smoking status: Patient/guardian denies using tobacco. - Ebola Screening: : No symptoms or risks identified at this time. ROS: 13:02 Constitutional: Negative for fever, chills, and weight loss, Eyes: Negative for injury, snw pain, redness, and discharge, ENT: Negative for injury, pain, and discharge, Neck: Negative for injury, pain, and swelling, Cardiovascular: Negative for chest pain, palpitations, and edema, Respiratory: Negative for shortness of breath, cough, wheezing, and pleuritic chest pain, Abdomen/GI: Negative for abdominal pain, nausea, vomiting, diarrhea, and constipation, Back: Negative for injury and pain, : Negative for injury, bleeding, discharge, and swelling, Neuro: Negative for headache, weakness, numbness, tingling, and seizure. 13:02 MS/extremity: Positive for decreased range of motion, erythema, pain, of the left foot, edema and discomfort to right knee. 13:02 Skin: Positive for cellulitis, erythema, swelling, of the left foot. Exam: 13:00 Constitutional: This is a well developed, well nourished patient who is awake, alert, snw and in no acute distress. Head/Face: Normocephalic, atraumatic. Eyes: Pupils equal round and reactive to light, extra-ocular motions intact. Lids and lashes normal. Conjunctiva and sclera are non-icteric and not injected. Cornea within normal limits. Periorbital areas with no swelling, redness, or edema. ENT: Nares patent. No nasal discharge, no septal abnormalities noted. Tympanic membranes are normal and external auditory canals are clear. Oropharynx with no redness, swelling, or masses, exudates, or evidence of obstruction, uvula midline. Mucous membranes moist. Neck: Trachea midline, no thyromegaly or masses palpated, and no cervical lymphadenopathy. Supple, full range of motion without nuchal rigidity, or vertebral point tenderness. No Meningismus. Chest/axilla: Normal chest wall appearance and motion. Nontender with no deformity. No lesions are appreciated. 13:00 Respiratory: Lungs have equal breath sounds bilaterally, clear to auscultation and percussion. No rales, rhonchi or wheezes noted. No increased work of breathing, no retractions or nasal flaring. Abdomen/GI: Soft, non-tender, with normal bowel sounds. No distension or tympany. No guarding or rebound. No evidence of tenderness throughout. Back: No spinal tenderness. No costovertebral tenderness. Full range of motion. Neuro: Awake and alert, GCS 15, oriented to person, place, time, and situation. Cranial nerves II-XII grossly intact. Motor strength 5/5 in all extremities. Sensory grossly intact. Cerebellar exam normal. Normal gait. Psych: Awake, alert, with orientation to person, place and time. Behavior, mood, and affect are within normal limits. 13:00 Cardiovascular: Rate: normal, Rhythm: regular, Pulses: no pulse deficits are appreciated, Heart sounds: murmur, systolic, grade 3 over 6, Edema: pedal edema, that is moderate. 13:00 Skin: Appearance: Color: jaundiced, pale, Temperature: cool, Moisture: normal moisture, cellulitis, that is moderate, well demarcated, on the left foot with diabetic scabbing to left great toe. Vital Signs: 11:42 BP 128 / 79; Pulse 80; Resp 18; Temp 98.9(O); Pulse Ox 98% on R/A; Weight 63.96 kg; sv Height 5 ft. 6 in. (167.64 cm); Pain 10/10; 13:00 BP 119 / 50; Pulse 79; Resp 18; Pulse Ox 97% on R/A; aj1 14:00 BP 116 / 52; Pulse 75; Resp 16; Pulse Ox 100% ; aj1 15:00 BP 109 / 75; Pulse 82; Resp 18; Pulse Ox 99% ; aj1 16:00 BP 112 / 65; Pulse 72; Resp 18; Pulse Ox 99% ; aj1 17:53 BP 126 / 66; Pulse 62; Resp 18; Pulse Ox 99% ; aj1 11:42 Body Mass Index 22.76 (63.96 kg, 167.64 cm) sv MDM: 12:52 Patient medically screened. snw 16:14 Data reviewed: vital signs, nurses notes. Data interpreted: Pulse oximetry: on room air snw is 97 %. Interpretation: normal. Counseling: I had a detailed discussion with the patient and/or guardian regarding: the historical points, exam findings, and any diagnostic results supporting the discharge/admit diagnosis, lab results, radiology results, the need for outpatient follow up, to return to the emergency department if symptoms worsen or persist or if there are any questions or concerns that arise at home. Special discussion: Based on the history and exam findings, there is no indication for further emergent testing or inpatient evaluation. I discussed with the patient/guardian the need to see the orthopedic surgeon for further evaluation of the symptoms. I discussed with the patient/guardian the need to see the primary care provider for further evaluation of the symptoms. 06/14 13:00 Order name: Basic Metabolic Panel; Complete Time: 14:27 snw 06/14 13:00 Order name: Blood Culture Adult (2) w 06/14 13:00 Order name: CBC with Diff; Complete Time: 14:17 w 06/14 13:00 Order name: Ckmb; Complete Time: 14:27 snw 06/14 13:00 Order name: CPK; Complete Time: 14:27 snw 06/14 13:00 Order name: Lactate; Complete Time: 17:03 snw 06/14 11:44 Order name: US Extremity Venous W Compression Malvin; Complete Time: 13:47 snw 06/14 13:00 Order name: LFT's; Complete Time: 14:27 snw 06/14 13:00 Order name: Lipase; Complete Time: 14:27 snw 06/14 13:00 Order name: Procalcitonin; Complete Time: 16:56 w 06/14 13:00 Order name: Protime (+inr); Complete Time: 16:58 snw 06/14 13:00 Order name: Ptt, Activated; Complete Time: 16:58 w 06/14 13:00 Order name: Foot Left 3 View XRAY; Complete Time: 14:02 w 06/14 13:00 Order name: Accucheck; Complete Time: 15:01 06/14 13:00 Order name: Cardiac monitoring; Complete Time: 15:01 06/14 13:00 Order name: EKG - Nurse/Tech; Complete Time: 15:01 snw 06/14 13:00 Order name: IV Saline Lock - Large Bore; Complete Time: 14:00 snw 06/14 13:00 Order name: Labs collected and sent; Complete Time: 14:00 snw 06/14 13:00 Order name: O2 Per Protocol; Complete Time: 13:29 snw 06/14 13:00 Order name: O2 Sat Monitoring; Complete Time: 13:29 w 06/14 14:21 Order name: EKG Electrocardiogram EDNE 06/14 14:29 Order name: Posterior Leg Splint: extra padding, extend splint past great toe please; snw Complete Time: 16:43 Administered Medications: 15:01 Drug: vancoMYCIN 1 grams Route: IVPB; Infused Over: 2 hrs; Site: right antecubital; aj1 17:52 Follow up: IV Status: Completed infusion; IV Intake: 250ml [facility] 17:25 Drug: fentaNYL (PF) 50 mcg Route: IM; Site: left deltoid; aj1 17:52 Follow up: Response: No adverse reaction; Pain is decreased aj1 Disposition: 06/14/18 16:04 Discharged to Home. Impression: Fracture of navicular [scaphoid] of foot. - Condition is Stable. - Discharge Instructions: Cast or Splint Care, Adult, Tarsal Navicular Fracture, Peripheral Edema. - Prescriptions for Ultram 50 mg Oral Tablet - take 1 tablet by ORAL route every 6 hours As needed; 14 tablet. - Medication Reconciliation Form, Thank You Letter, Antibiotic Education, Prescription Opioid Use form. - Follow up: Private Physician; When: 2 - 3 days; Reason: Recheck today's complaints, Continuance of care, Re-evaluation by your physician. Follow up: Emergency Department; When: As needed; Reason: Worsening of condition. - Notes: Continue Bactrim as directed per PCP Addendum: 06/17/2018 07:12 Co-signature as Attending Physician, Abner Westbrook MD I agree with the assessment and c aguayo plan of care. Signatures: Dispatcher [employer] EDSophie Epstein RN RN aj1 Petra Shaw RN RN sv Anderson, Corey, MD MD cha Therrien, Shelly, CHILDCARE WORKER-C CHILDCARE WORKER-Csnw Corrections: (The following items were deleted from the chart) 06/14 17:54 16:04 06/14/2018 16:04 Discharged to Home. Impression: Fracture of navicular [scaphoid] aj1 of foot. Condition is Stable. Forms are Medication Reconciliation Form, Thank You Letter, Antibiotic Education, Prescription Opioid Use. Follow up: Private Physician; When: 2 - 3 days; Reason: Recheck today's complaints, Continuance of care, Re-evaluation by your physician. Follow up: Emergency Department; When: As needed; Reason: Worsening of condition. snw
[2018-06-14] MEDS ORDERED: PROMETHAZINE 25 MG/ML VIAL ONE (16:25)
[2018-06-14 16:55] LABS: Protime INR 1.17
[2018-06-14] MEDS ORDERED: FENTANYL CITR 100 MCG/2 ML ONE (17:31)
[2018-06-14 18:05] VITALS: TEMP 98.9
[2018-06-14 18:09] VITALS: O2SAT 99
[2018-06-14 18:12] VITALS: BP 126/66
--- NOTE | 2018-06-15 09:24 | EKG ---
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
== END 2018-06-14 17:54 | disposition home or self-care (01) ==
LOC: ER 11:26
DX: S92.252A Displaced fracture of navicular [scaphoid] of left foot, initial encounter for closed fracture (principal); K74.60 Unspecified cirrhosis of liver; E11.9 Type 2 diabetes mellitus without complications; I10 Essential (primary) hypertension; Z79.4 Long term (current) use of insulin; Z88.0 Allergy status to penicillin
CPT/HCPCS: 36415; 80048; 80076; 82550; 82553; 83605; 83690; 84145; 85025; 85610; 85730; 87040; 93005; 93970; 96365; 96366; 96372; 99284; J2550; J3010

== ENCOUNTER 2019-05-16 17:36 | Inpatient (IN) | payer SELFPAY ==
--- OUTSIDE RECORDS SUMMARY | 2019-05-16 17:40 | XMS REPORT ---
:1975 Author Organization [facility] Address [address] [address] Dr. Watters [address] [place] [id number] Care Team Providers Name Role Phone KYLE BACA Unavailable Unavailable Problems This patient has no known problems. Allergies, Adverse Reactions, Alerts This patient has no known allergies or adverse reactions. Medications This patient has no known medications. Results Test Description Test Time Test Comments Text Results Atomic Results Result Comments POCT-GLUCOSE METER 2019-05-12 12:41:00 Test Item Value Reference Range Comments POC-GLUCOSE METER (BEAKER) 323 mg/dL 70-110 : TESTED AT [address] (test bnld=4818) [place], [address]: Roundsman/Quality Control Tester YN=[id number] for JOE HALL POCT-GLUCOSE [id number] 07:46:00 Test Item Value Reference Range Comments POC-GLUCOSE METER (BEAKER) 387 mg/dL 70-110 : TESTED AT [address] (test htja=5963) [facility], [address]: Roundsman/Quality Control Tester MC=[id number] for ANTHONY JACKSON POCT-GLUCOSE [id number] 06:30:00 Test Item Value Reference Range Comments POC-GLUCOSE METER (BEAKER) 423 mg/dL 70-110 : Notified RN/MD: TESTED AT (test qjwb=6285) [address], [address]: Roundsman/Quality Control Tester [id number] for ANTHONY JACKSON BASIC METABOLIC [id number] 06:12:00 Test Item Value Reference Range Comments SODIUM (BEAKER) (test 132 meq/L 136-145 ivrx=457) POTASSIUM (BEAKER) (test 4.3 meq/L 3.5-5.1 evra=282) CHLORIDE (BEAKER) (test 99 meq/L 98-107 qxsl=890) CO2 (BEAKER) (test 24 meq/L 22-29 ygtx=039) BLOOD UREA NITROGEN 14 mg/dL 7-21 (BEAKER) (test iggq=650) CREATININE (BEAKER) (test 1.24 mg/dL 0.57-1.25 xwni=935) GLUCOSE RANDOM (BEAKER) 443 mg/dL 70-105 (test tjhc=415) CALCIUM (BEAKER) (test 7.8 mg/dL 8.4-10.2 nvkz=775) EGFR (BEAKER) (test 47 mL/min/1.73 sq m ESTIMATED GFR IS NOT bnhb=0377) ACCURATE CREATININE CLEARANCE IN PREDICTING GLOMERULAR FILTRATION RATE. ESTIMATED GFR IS NOT APPLICABLE FOR DIALYSIS PATIENTS. Roundsman ID - FANNIE [id number] 05:46:00 Test Item Value Reference Range Comments MAGNESIUM (BEAKER) (test lryf=973) 1.7 mg/dL 1.6-2.6 Roundsman ID - FANNIE WPROTHROMBIN TIME/[id number] 05:07:00 Test Item Value Reference Range Comments PROTIME (BEAKER) (test uekc=894) 17.8 seconds 11.9-14.2 INR (BEAKER) (test hfcj=092) 1.5 <=5.9 Effective 08/28/2018: PT Reference Range ChangeNew: 11.9-14.2 Previous: 11.7- 14.7RECOMMENDED COUMADIN/WARFARIN INR THERAPY RANGESSTANDARD DOSE: 2.0-3.0 Includes: PROPHYLAXIS for venous thrombosis, systemic embolization; TREATMENT for venous thrombosis and/or pulmonary embolus.HIGH RISK: Target INR is2.5-3.5 for patients wiht mechanical heart valves.CBC (HEMOGRAM ONLY)2019-05-12 04:57:00 Test Item Value Reference Range Comments WHITE BLOOD CELL COUNT (BEAKER) (test wzlk=065) 5.1 K/ L 3.5-10.5 RED BLOOD CELL COUNT (BEAKER) (test zvxg=733) 2.65 M/ L 3.93-5.22 HEMOGLOBIN (BEAKER) (test mttv=307) 7.8 GM/DL 11.2-15.7 HEMATOCRIT (BEAKER) (test bbsc=052) 24.0 % 34.1-44.9 MEAN CORPUSCULAR VOLUME (BEAKER) (test axwg=201) 90.6 fL 79.4-94.8 MEAN CORPUSCULAR HEMOGLOBIN (BEAKER) (test 29.4 pg 25.6-32.2 kheg=322) MEAN CORPUSCULAR HEMOGLOBIN CONC (BEAKER) (test 32.5 GM/DL 32.2-35.5 kgme=317) RED CELL DISTRIBUTION WIDTH (BEAKER) (test 17.1 % 11.7-14.4 hfbs=406) PLATELET COUNT (BEAKER) (test rlra=763) 79 K/CU MM 150-450 MEAN PLATELET VOLUME (BEAKER) (test jcxa=340) 11.7 fL 9.4-12.3 NUCLEATED RED BLOOD CELLS (BEAKER) (test 0 /100 WBC 0-0 uott=248) POCT-GLUCOSE [id number] 21:28:00 Test Item Value Reference Range Comments POC-GLUCOSE METER (BEAKER) 361 mg/dL 70-110 : TESTED AT [address] (test glml=1880) [facility], [address]: Roundsman/Quality Control Tester NZ=[id number] for ANTHONY JACKSON POCT-GLUCOSE [id number] 17:28:00 Test Item Value Reference Range Comments POC-GLUCOSE METER (BEAKER) 147 mg/dL 70-110 : TESTED AT [address] (test ooeu=9476) [facility], [address]: Roundsman/Quality Control Tester NM=[id number] for PABLO BOLANOS POCT-GLUCOSE [id number] 15:37:00 Test Item Value Reference Range Comments POC-GLUCOSE METER (BEAKER) 106 mg/dL 70-110 : TESTED AT [address] (test mtdx=0577) [facility], [address]: Roundsman/Quality Control Tester DU=[id number] for MICKEY ROBERTSON RAD, PELVIS, 1 OR 2 [id number] 15:25:00Reason for exam:->left hip fractureFINAL REPORT RAD, PELVIS, 1 OR 2 VIEWS CLINICAL INDICATION: left hip fractureTECHNIQUE: AP view of the pelvis COMPARISON: Radiograph 05/10/2019 FINDINGS: Interval left total hip arthroplasty for minimally displaced left femoral neck fracture. There is no fracture or lucency surrounding the proximal portion of the prosthesis. Small foci of subcutaneous air are expected postoperatively. Unchanged right femur intramedullary fixation. IMPRESSION:No evidence of acute complication following left total hip arthroplasty. Signed: Masha Fregoso Verified Date/Time: 05/11/2019 15 :25:39 03: 25 PMHEMOGLOBIN [id number] 09:14:00 Test Item Value Reference Range Comments HEMOGLOBIN A1C (BEAKER) (test gjrl=505) 5.4 % 4.3-6.1 ALPHA FETOPROTEIN (AFP), TUMOR [id number] 07:59:00 Test Item Value Reference Range Comments ALPHA-FETOPROTEIN (BEAKER) (test lywu=7358) < ng/mL <10.0 Roundsman ID Real BATES WPROTHROMBIN TIME/[id number] 07:34:00 Test Item Value Reference Range Comments PROTIME (BEAKER) (test gkbt=924) 17.2 seconds 11.9-14.2 INR (BEAKER) (test swvm=490) 1.5 <=5.9 Effective 08/28/2018: PT Reference Range ChangeNew: 11.9-14.2 Previous: 11.7- 14.7RECOMMENDED COUMADIN/WARFARIN INR THERAPY RANGESSTANDARD DOSE: 2.0-3.0 Includes: PROPHYLAXIS for venous thrombosis, systemic embolization; TREATMENT for venous thrombosis and/or pulmonary embolus.HIGH RISK: Target INR is2.5-3.5 for patients wiht mechanical heart valves.[id number] 06:59:00 Test Item Value Reference Range Comments MAGNESIUM (BEAKER) (test 1.8 mg/dL 1.6-2.6 Specimen slightly hemolyzed vczy=739) Roundsman ID Real BATES WBASIC METABOLIC [id number] 06:59:00 Test Item Value Reference Range Comments SODIUM (BEAKER) (test 136 meq/L 136-145 glru=009) POTASSIUM (BEAKER) (test 3.9 meq/L 3.5-5.1 Specimen slightly fltr=361) hemolyzed CHLORIDE (BEAKER) (test 100 meq/L 98-107 wqcb=785) CO2 (BEAKER) (test 29 meq/L 22-29 gsnh=394) BLOOD UREA NITROGEN 12 mg/dL 7-21 (BEAKER) (test qcwt=149) CREATININE (BEAKER) (test 1.19 mg/dL 0.57-1.25 Specimen slightly kgzk=774) hemolyzed GLUCOSE RANDOM (BEAKER) 134 mg/dL 70-105 (test oexe=706) CALCIUM (BEAKER) (test 8.2 mg/dL 8.4-10.2 iurs=118) EGFR (BEAKER) (test 49 mL/min/1.73 sq m ESTIMATED GFR IS NOT zbip=6193) ACCURATE CREATININE CLEARANCE IN PREDICTING GLOMERULAR FILTRATION RATE. ESTIMATED GFR IS NOT APPLICABLE FOR DIALYSIS PATIENTS. Roundsman ID Real BATES [facility] (HEMOGRAM ONLY)2019-05-11 06:48:00 Test Item Value Reference Range Comments WHITE BLOOD CELL COUNT (BEAKER) (test zjta=522) 6.1 K/ L 3.5-10.5 RED BLOOD CELL COUNT (BEAKER) (test fgtw=888) 2.88 M/ L 3.93-5.22 HEMOGLOBIN (BEAKER) (test rzul=230) 8.5 GM/DL 11.2-15.7 HEMATOCRIT (BEAKER) (test uamw=192) 26.5 % 34.1-44.9 MEAN CORPUSCULAR VOLUME (BEAKER) (test alkl=696) 92.0 fL 79.4-94.8 MEAN CORPUSCULAR HEMOGLOBIN (BEAKER) (test 29.5 pg 25.6-32.2 znmx=898) MEAN CORPUSCULAR HEMOGLOBIN CONC (BEAKER) (test 32.1 GM/DL 32.2-35.5 hvlg=638) RED CELL DISTRIBUTION WIDTH (BEAKER) (test 18.2 % 11.7-14.4 stkt=141) PLATELET COUNT (BEAKER) (test dbpa=521) 81 K/CU MM 150-450 MEAN PLATELET VOLUME (BEAKER) (test ixzg=951) 11.6 fL 9.4-12.3 NUCLEATED RED BLOOD CELLS (BEAKER) (test 0 /100 WBC 0-0 qshc=582) POCT-GLUCOSE [id number] 05:55:00 Test Item Value Reference Range Comments POC-GLUCOSE METER (BEAKER) 135 mg/dL 70-110 : TESTED AT [facility] [address] (test qcbt=1463) [facility], [address]: Roundsman/Quality Control Tester KX=[id number] for DIANN MARTINEZ POCT-GLUCOSE [id number] 22:15:00 Test Item Value Reference Range Comments POC-GLUCOSE METER (BEAKER) 202 mg/dL 70-110 : TESTED AT [address] (test wgkn=8742) [facility], [address]: Roundsman/Quality Control Tester EX=[id number] for Patrizia Pitt POCT-GLUCOSE [id number] 20:53:00 Test Item Value Reference Range Comments POC-GLUCOSE METER (BEAKER) 207 mg/dL 70-110 : TESTED AT [address] (test mnjy=8082) [facility], [address]: Roundsman/Quality Control Tester CG=[id number] for DIANN MARTINEZ POCT-GLUCOSE [id number] 17:47:00 Test Item Value Reference Range Comments POC-GLUCOSE METER (BEAKER) 163 mg/dL 70-110 : TESTED AT [address] (test vnvb=3354) [facility], [address]: Roundsman/Quality Control Tester VC=[id number] for PABLO BOLANOS POCT-GLUCOSE [id number] 15:39:00 Test Item Value Reference Range Comments POC-GLUCOSE METER (BEAKER) 152 mg/dL 70-110 : TESTED AT [address] (test bwdy=2473) [facility], [address]: Roundsman/Quality Control Tester LN=[id number] for PABLO BOLANOS RAD, FEMUR, MIN. 2 VIEWS, [id number] 14:43:00Reason for exam:->hip fxShould this be performed at the bedside?->YesFINAL REPORT TECHNIQUE: Seven views of left femur HISTORY: hip fx. COMPARISON: Radiograph seven hours prior. IMPRESSION:Again seen is the minimally displaced left femoral neck fracture. There is been some interval increased displacement.No additional acute displaced fracture. Signed: Elroy Villegas Verified Date/Time: 05/10/2019 14:43:01 Reading Location: [address] Consult Reading Room HEMOGLOBIN [id number] 13:09:00 Test Item Value Reference Range Comments HEMOGLOBIN A1C (ARMANDO) (test mebo=279) 4.9 % 4.3-6.1 RAD, PELVIS, 1 OR 2 [id number] 05:46:00Reason for exam:->hip painShould this be performed at the bedside?->YesFINAL REPORT RAD, HIP, 2 VIEWS, LEFT, RAD, PELVIS, 1 OR 2 VIEWS CLINICAL INDICATION: femur fx COMPARISON: None FINDINGS: Two views of the left hip were obtained. Single frontal view of the pelvis was obtained. The study is limited due to technique. There is a nondisplaced left femoral neck fracture with mild varus deformity. There is no dislocation. The patient is status post ORIF of the right proximal femur, with intact surgical hardware. There are mild degenerative changes of the bilateral hip joints. The sacrum is obscured by overlying stool and bowel gas. IMPRESSION:Limited exam.Nondisplaced left femoral neck fracture.Status post ORIF of the right proximal femur. Signed: Mary Carmen Maloney Verified Date/Time: 05/10/2019 05:46:55 Electronically signedby: MARY CARMEN MALONEY MD on 05/10/2019 05:46 AMRAD, HIP , 2 VIEWS, [id number] 05:46:00Reason for exam:->femur fxShould this be performed at the bedside?->YesFINAL REPORT RAD, HIP , 2 VIEWS, LEFT, RAD, PELVIS, 1 OR 2 VIEWS CLINICAL INDICATION: femur fx COMPARISON: None FINDINGS: Two views of the left hip were obtained. Single frontal view of the pelvis was obtained. The study is limited due to technique. There is a nondisplaced left femoral neck fracture with mild varus deformity. There is no dislocation. The patient is status post ORIF of the right proximal femur, with intact surgical hardware. There are mild degenerative changes of the bilateral hip joints. The sacrum is obscured by overlying stool and bowel gas. IMPRESSION:Limited exam.Nondisplaced left femoral neck fracture.Status post ORIF of the right proximal femur. Signed: Mary Carmen Maloney Verified Date/Time: 05/10/2019 05:46:55 Electronically signedby: MARY CARMEN MALONEY MD on 05/10/2019 05:46 AMPOCT-GLUCOSE [id number] 04:50:00 Test Item Value Reference Range Comments POC-GLUCOSE METER (BEAKER) 132 mg/dL 70-110 : TESTED AT [facility] [address] (test zfow=8507) [facility], [address]: Roundsman/Quality Control Tester PS=[id number] for ANDRESSA CHANEL TROPONIN [id number] 03:49:00 Test Item Value Reference Range Comments TROPONIN I (BEAKER) (test quke=827) < ng/mL 0.00-0.03 Troponin I (TnI) levels must be interpreted in the context of the presenting symptoms and the clinical findings. Elevated TnI levels indicate myocardial damage, but are not specific for ischemic heart disease. Elevated TnI levels are seen in patients with other cardiac conditions (including myocarditis and congestive heart failure), and slight TnI elevations occur in patients with other conditions, including sepsis, renal failure, acidosis, acute neurological disease, and persistent tachyarrhythmia.Roundsman ID - PIAYA LCOMPREHENSIVE METABOLIC [id number] 03:46:00 Test Item Value Reference Range Comments TOTAL PROTEIN (BEAKER) 6.1 gm/dL 6.0-8.3 (test mddw=763) ALBUMIN (BEAKER) (test 2.5 g/dL 3.5-5.0 hpve=5516) ALKALINE PHOSPHATASE 256 U/L 40-150 (BEAKER) (test vvjr=025) BILIRUBIN TOTAL (BEAKER) 0.8 mg/dL 0.2-1.2 (test ktxj=823) SODIUM (BEAKER) (test 135 meq/L 136-145 mvhu=295) POTASSIUM (BEAKER) (test 3.8 meq/L 3.5-5.1 kyng=445) CHLORIDE (BEAKER) (test 100 meq/L 98-107 zxyk=087) CO2 (BEAKER) (test 30 meq/L 22-29 yqqh=640) BLOOD UREA NITROGEN 12 mg/dL 7-21 (BEAKER) (test cboe=337) CREATININE (BEAKER) (test 1.13 mg/dL 0.57-1.25 ymfw=865) GLUCOSE RANDOM (BEAKER) 173 mg/dL 70-105 (test ryqp=120) CALCIUM (BEAKER) (test 7.8 mg/dL 8.4-10.2 uqpv=601) AST (SGOT) (BEAKER) (test 36 U/L 5-34 uscb=126) ALT (SGPT) (BEAKER) (test 18 U/L 6-55 opom=682) EGFR (BEAKER) (test 52 mL/min/1.73 sq m ESTIMATED GFR IS NOT ktvs=1229) ACCURATE CREATININE CLEARANCE IN PREDICTING GLOMERULAR FILTRATION RATE. ESTIMATED GFR IS NOT APPLICABLE FOR DIALYSIS PATIENTS. Roundsman ID - PIAYA LPROTHROMBIN [id number] 02:59:00 Test Item Value Reference Range Comments PROTIME (BEAKER) (test cfel=090) 16.9 seconds 11.9-14.2 INR (BEAKER) (test sqsb=724) 1.4 <=5.9 Effective 08/28/2018: PT Reference Range ChangeNew: 11.9-14.2 Previous: 11.7- 14.7RECOMMENDED COUMADIN/WARFARIN INR THERAPY RANGESSTANDARD DOSE: 2.0-3.0 Includes: PROPHYLAXIS for venous thrombosis, systemic embolization; TREATMENT for venous thrombosis and/or pulmonary embolus.HIGH RISK: Target INR is2.5-3.5 for patients wiht mechanical heart valves.CBC W/PLT COUNT & AUTO [id number] 02:46:00 Test Item Value Reference Range Comments WHITE BLOOD CELL COUNT (BEAKER) (test yeeq=685) 7.6 K/ L 3.5-10.5 RED BLOOD CELL COUNT (BEAKER) (test qbpj=262) 3.15 M/ L 3.93-5.22 HEMOGLOBIN (BEAKER) (test ccot=487) 9.2 GM/DL 11.2-15.7 HEMATOCRIT (BEAKER) (test nqcj=588) 28.8 % 34.1-44.9 MEAN CORPUSCULAR VOLUME (BEAKER) (test pqan=027) 91.4 fL 79.4-94.8 MEAN CORPUSCULAR HEMOGLOBIN (BEAKER) (test 29.2 pg 25.6-32.2 ttpy=894) MEAN CORPUSCULAR HEMOGLOBIN CONC (BEAKER) (test 31.9 GM/DL 32.2-35.5 lgqc=034) RED CELL DISTRIBUTION WIDTH (BEAKER) (test 18.4 % 11.7-14.4 xdey=912) PLATELET COUNT (BEAKER) (test oruj=880) 81 K/CU MM 150-450 MEAN PLATELET VOLUME (BEAKER) (test xaqt=344) 11.7 fL 9.4-12.3 NUCLEATED RED BLOOD CELLS (BEAKER) (test 0 /100 WBC 0-0 amle=388) NEUTROPHILS RELATIVE PERCENT (BEAKER) (test 73 % yggx=387) LYMPHOCYTES RELATIVE PERCENT (BEAKER) (test 11 % jvsj=226) MONOCYTES RELATIVE PERCENT (BEAKER) (test 9 % awlo=901) EOSINOPHILS RELATIVE PERCENT (BEAKER) (test 6 % wwmx=067) BASOPHILS RELATIVE PERCENT (BEAKER) (test 0 % pdhr=972) NEUTROPHILS ABSOLUTE COUNT (BEAKER) (test 5.57 K/ L 1.56-6.13 kbvd=901) LYMPHOCYTES ABSOLUTE COUNT (BEAKER) (test 0.85 K/ L 1.18-3.74 dukv=495) MONOCYTES ABSOLUTE COUNT (BEAKER) (test soom=188) 0.71 K/ L 0.24-0.36 EOSINOPHILS ABSOLUTE COUNT (BEAKER) (test 0.47 K/ L 0.04-0.36 sllr=791) BASOPHILS ABSOLUTE COUNT (BEAKER) (test ejtd=005) 0.02 K/ L 0.01-0.08 IMMATURE GRANULOCYTES-RELATIVE PERCENT (BEAKER) 0 % 0-1 (test udme=2899)
--- OUTSIDE RECORDS SUMMARY | 2019-05-16 17:45 | XMS REPORT | Summary of Care ---
:1975 Author Organization [facility] - [facility] Address [address] [place] [id number] Care Team Providers Name Role Phone Petra Huff Primary Care Provider Reason for Visit Reason Comments Transition Of Care Encounter Details Date Type Department Care Team Description 05/08/2019 Transition of Care [facility] Cristina Chappell Transition Of Care Health [facility]- [address] [place] [address] [id number] Allergies Active Allergy Reactions Severity Noted Date Comments Penicillins Itching, Nausea and/or Vomiting 05/09/2013 documented as of this encounter (statuses as of 05/14/2019) Medications Medication Sig Dispensed Refills Start Date End Date Status FLUoxetine (PROZAC) 40 Take 40 mg by 0 Active mg capsule mouth daily. ferrous sulfate 325 mg Take 1 tablet 30 tablet 2 09/23/2018 Active (65 mg iron) by mouth daily. tabletIndications: Closed fracture of right tibia and fibula, initial encounter propranolol 10 mg Take 1 tablet 60 tablet 2 10/01/2018 Active tabletIndications: by mouth 2 Gastrointestinal (two) times hemorrhage, unspecified daily. gastrointestinal hemorrhage type, Melena insulin degludec inject 40 Units 0 Active (TRESIBA U-100 INSULIN under the skin SC) daily. alendronate 70 mg TAKE 1 TABLET 11 09/10/2018 Active tablet BY MOUTH ONCE A WEEK amitriptyline 100 mg TAKE 1 TABLET 5 09/10/2018 Active tablet BY MOUTH ONCE DAILY AT BEDTIME gabapentin 600 mg Take 600 mg by 5 09/06/2018 Active tablet mouth 2 (two) times daily. ondansetron (ZOFRAN Take 1 tablet 6 tablet 0 12/08/2018 Active ODT) 4 mg by mouth every disintegrating 8 (eight) hours tabletIndications: as needed for Nausea, Pain at Nausea and surgical site Vomiting (N/V). fluticasone propionate Use 1 [place] in 16 g 0 04/18/2019 Active 50 mcg/actuation nasal each nostril sprayIndications: daily. Community acquired pneumonia of left lower lobe of lung lactulose 10 gram/15 mL Take 30 mL by 1 Bottle 0 04/17/2019 Active solutionIndications: mouth 3 (three) Community acquired times daily as pneumonia of left lower needed for lobe of lung Constipation. ipratropium-albuterol Inhale 3 mL 28 Vial 0 04/17/2019 Active 0.5 mg-3 mg(2.5 mg every 6 (six) base)/3 mL nebulizer hours as needed solutionIndications: for Wheezing. Community acquired pneumonia of left lower lobe of lung lidocaine 2% viscous 2 Take 10 mL by 1 Bottle 2 05/07/2019 Active % solutionIndications: mouth every 6 Gastrointestinal (six) hours. hemorrhage, unspecified gastrointestinal hemorrhage type spironolactone 100 mg Take 1 tablet 30 tablet 2 05/07/2019 Active tabletIndications: by mouth daily. Gastrointestinal hemorrhage, unspecified gastrointestinal hemorrhage type, Melena furosemide 40 mg Take 1 tablet 30 tablet 2 05/07/2019 Active tabletIndications: by mouth daily. Gastrointestinal hemorrhage, unspecified gastrointestinal hemorrhage type, Melena omeprazole 40 mg Take 1 capsule 30 capsule 1 05/08/2019 07/07/2019 Active capsuleIndications: by mouth daily Gastrointestinal for 60 days. hemorrhage, unspecified gastrointestinal hemorrhage type documented as of this encounter (statuses as of 05/14/2019) Active Problems Problem Noted Date Anemia 04/09/2019 Decompensated hepatic cirrhosis 04/09/2019 Esophageal varices determined by endoscopy 10/23/2018 Overview: Added automatically from request for surgery [id number] Diabetic neuropathy associated with type 2 diabetes mellitus 10/11/2018 Charcot's joint of ankle, right 10/11/2018 Charcot's joint of foot, right 10/11/2018 Fracture dislocation of ankle, right, closed, initial encounter 10/11/2018 Bleeding esophageal varices, unspecified esophageal varices type 10/10/2018 Overview: Added automatically from request for surgery [id number] Melena 09/28/2018 Hypotension due to hypovolemia 09/28/2018 GIB (gastrointestinal bleeding) 09/28/2018 Tibia/fibula fracture 09/22/2018 Pain pelvic 05/25/2013 Cirrhosis 05/25/2013 Abnormal menses 05/25/2013 UTI (urinary tract infection) 05/12/2013 Overview: Ok per Dr. Chaudhari to give Keflex 500mg BID x 7 days Encounter for routine gynecological examination 05/09/2013 Overview: ICD10 Diagnosis Term [employer] Developer Utility Type 2 diabetes mellitus without complications 05/09/2013 Overview: ICD10 Diagnosis Term [employer] Developer Utility Other and unspecified ovarian cyst 05/09/2013 Overview: Medical records from [facility] on 04/02/2013. Transvaginal USG. Impression: 4.2cm cyst on left ovary. Blood flow is identified with bilateral ovarian stroma. Torsion cannot be entirely excluded by sonography, however findings make torsion unlikely. Uterus is normal size: 8.8 x 5.0 x 6.0cm No myometrial mass. Endometrium 8mm in thickness with no focal abnormality. The right ovary is normal, no ovarian or adnexal mass. No free fluid. Tobacco use disorder 05/09/2013 Abdominal pain, generalized 05/09/2013 Kidney disease documented as of this encounter (statuses as of 05/14/2019) Resolved Problems Problem Noted Date Resolved Date Other abnormal Papanicolaou smear of cervix and cervical 01/30/20082013 HPV(795.09) Contraceptive management 01/30/2008 05/09/2013 Overview: ICD10 Diagnosis Term [employer] Developer Utility delivery delivered 01/25/2008 05/09/2013 Overview: ICD10 Diagnosis Term [employer] Developer Utility Diabetes mellitus during , antepartum 11/05/2007 05/09/2013 Overview: ICD10 Diagnosis Term [employer] Developer Utility Other ill-defined heart disease 05/09/2013 Need for prophylactic vaccination with tetanus toxoid alone 05/09/2013 Other specified and placental problems affecting management of 2013 mother, antepartum Papanicolaou smear of cervix with low grade squamous intraepithelial 2013 lesion (LGSIL) Tubal ligation status 05/09/2013 documented as of this encounter (statuses as of 05/14/2019) Immunizations Name Administration Dates Next Due Influenza Virus Vaccine Quad .5 mL IM 6+ MO 04/17/2019 Pneumococcal Polysaccharide, PPSV23 (PNEUMOVAX) 04/17/2019 Td 04/02/2008 documented as of this encounter Social History Tobacco Use Types Packs/Day Years Used Date Light Tobacco Smoker Cigarettes Smokeless Tobacco: Never Used Comments: occasional when she is stressed Alcohol Use Drinks/Week oz/Week Comments No Previous heavy alcohol abuse Education Answer Date Recorded What is the highest level of school you have completed or 10th grade 2018 the highest degree you have received? Financial Resource Strain Answer Date Recorded How hard is it for you to pay for the very basics like Not hard at all 2018 food, housing, medical care, and heating? Food Insecurity Answer Date Recorded Within the past 12 months, you worried that your food would Never true 2018 run out before you got money to buy more. Within the past 12 months, the food you bought just didn't Never true 2018 last and you didn't have money to get more. Transportation Needs Answer Date Recorded In the past 12 months, has lack of transportation kept you from No 09/22/2018 medical appointments or from getting medications? In the past 12 months, has lack of transportation kept you from No 09/22/2018 meetings, work, or getting things needed for daily living? Sex Assigned at Date Recorded Not on file Job Start Date Occupation Industry Not on file Not on file Not on file Travel History Travel Start Travel End No recent travel history available. documented as of this encounter Last Filed Vital Signs Not on filedocumented in this encounter Plan of Treatment Date Type Specialty Care Team Description 06/11/2019 Office Visit Orthopedic Surgery David Palacio MD [address] [place] [address] [phone] Health Maintenance Due Date Last Done Comments EYE EXAM 1984 URINE MICROALBUMIN 1984 DTaP,Tdap,and Td Vaccines (1 - 1985 04/02/2008 Tdap) FOOT EXAM 1992 Breast Cancer Screening 2014 (MAMMOGRAM) PAP SMEAR 05/09/2016 05/09/2013, 10/29/2007 LDL-C 09/23/2019 09/22/2018 HgA1C 10/08/2019 04/09/2019, 09/22/2018, 11/05/2007 CREATININE (SERUM) 05/07/2020 05/07/2019, 05/06/2019, 05/05/2019, Additional history exists INFLUENZA VACCINE Completed 04/17/2019 PNEUMOCOCCAL 0-64 YEARS COMBINED Completed 04/17/2019 SERIES documented as of this encounter Implants Implanted Type Area Hydrographer Device Shelf Model / Identifier Expiration Serial / Date Lot Six Shooter Farhat Multi-Band Ligater Band [employer] 06/13/2019 MBL-[id number] -[id number] / Implanted: Qty: 3 on 05/03/2019 by Mya Holliday MD at [facility] 0 / [id number] Implant Orthopedic Endcap NAIL Right: [employer] 10/30/2021 [id number] / Implanted: Qty: 2 on 12/03/2018 by Ric Sal MD at [facility] NA / [id number] Nail Intramedullary 10mm Elle 22cml NAIL Right: [employer] 07/30/[id number] / Implanted: Qty: 1 on 12/03/2018 by Ric Sal MD at [facility] NA / [id number] Screw Bone Compression 5mm Elle 85mml SCREW Right: [employer] [id number] / Implanted: Qty: 1 on 12/03/2018 by Ric Sal MD at [facility] NA / [id number] Screw Bone Compression 5mm Elle 30mml SCREW Right: [employer] [id number] / Implanted: Qty: 1 on 12/03/2018 by Ric Sal MD at [facility] NA / [id number] Screw Bone Compression 5mm Elle 30mml SCREW Right: [employer] [id number] / Implanted: Qty: 1 on 12/03/2018 by Ric Sal MD at [facility] NA / [id number] Rode Right: Leg Screw-03/08/2018 Right: Implanted: 03/08/2018 (Quantity not on file) Knee Foam Pack, Shelbiana Vitoss Bb Trauma 10cc #[id number] - Sna Right: [employer] 05/30/2020 [id number] / Implanted: Qty: 1 on 12/03/2018 by Ric Sal MD at [facility] AT [facility] NA / [id number] documented as of this encounter Results Not on filedocumented in this encounter Insurance Payer Benefit Plan / Subscriber ID Effective Phone Address Type Group Dates MEDICAID MEDICAID SSI PENDING 2019-[address] [place] [address] documented as of this encounter
--- OUTSIDE RECORDS SUMMARY | 2019-05-16 17:49 | XMS REPORT | Summary of Care ---
:1975 Author Organization [facility] Address [address] [place] [id number] Care Team Providers Name Role Phone Petra Bloom Primary Care Provider Reason for Referral Other (Routine) Status Reason Specialty Diagnoses / Referred By Referred To Procedures Contact Contact New Request Diagnoses Type 2 diabetes mellitus without complication, unspecified whether long filler cigar roller machine insulin use Kathy Gonzalez Davis, Elizabeth, Procedures Discharge Follow-up: Specialty Provider NICOLE JONES; 2 Weeks DO [address] [phone] Phone: (Routine) Status Reason Specialty Diagnoses / Referred By Referred To Procedures Contact Contact New Request IM-GASTROENTEROLO Diagnoses Community acquired pneumonia of left lower lobe of lung Kathy Gonzalez GY Procedures Discharge Follow-Up: Specialty Service IM-GASTROENTEROLOGY; 2 Weeks DO Nadege [address] [address] (Routine) Status Reason Specialty Diagnoses / Referred By Contact Referred To Procedures Contact New Request Diagnoses Community acquired pneumonia of left lower lobe of lung Kathy Gonzalez Bradley, Stephanie Procedures Discharge Follow-up: PCP PETRA BLOOM; 3-5 Days DO Yaneli [address] [place] [phone] [place] [address] Phone: Radiology Services (Routine) Status Reason Specialty Diagnoses / Referred By Referred To Procedures Contact Contact New Request Diagnostic Diagnoses SOB (shortness of breath) Hypoxia Gonzalez, [facility] Radiology Procedures XR CHEST 2 VW Nadege, DO [address] [place] [address] (Routine) Status Reason Specialty Diagnoses / Referred By Referred To Procedures Contact Contact New Request Diagnostic Diagnoses Globus sensation [facility], [facility] Radiology Procedures FL BARIUM SWALLOW ESOPHAGUS Nadege, DO [address] [place] [address] (Routine) Status Reason Specialty Diagnoses / Referred By Referred To Procedures Contact Contact New Request Diagnostic Diagnoses Globus sensation [facility], [facility] Radiology Procedures MOD BARIUM SWALLOW, (COOKIE) Nadege, DO [address] [place] [address] Radiology Services (STAT) Status Reason Specialty Diagnoses / Referred By Referred To Procedures Contact Contact New Request Diagnostic Diagnoses SOB (shortness of breath) Rajiv, Radiology Procedures XR CHEST 1 VW Dustin Chatman MD [address] [place] [address] [id number] [place] [phone] Radiology Services (ADEEL) Status Reason Specialty Diagnoses / Referred By Referred To Procedures Contact Contact New Request Diagnostic Diagnoses Ascites of liver Toi Kam, Radiology Procedures IR PARACENTESIS [address] [place], [place] [id number] MRI/CAT Scan (STAT) Status Reason Specialty Diagnoses / Referred By Referred To Procedures Contact Contact New Request Diagnostic Diagnoses Generalized abdominal pain Chest pain in adult Right leg pain Ibikunle, Radiology Procedures CT ABDOMEN PELVIS W CONTRAST Jennifer F, TERRAZZO TILE SETTER [address] [facility] [address] [place] [address] Radiology Services (STAT) Status Reason Specialty Diagnoses / Referred By Referred To Procedures Contact Contact New Request Diagnostic Diagnoses Generalized abdominal pain Chest pain in adult Right leg pain Kgikunjosse, Radiology Procedures XR CHEST 2 VW CK Murillo [address] [facility] [address] [place] [address] Reason for Visit Reason Comments Back Pain Pain Abdominal Pain Auth/Cert Status Reason Specialty Diagnoses / Referred By Referred To Procedures Contact Contact Emergency Medicine [facility] Emergency Dept [address] [place] [address] [place] [address] Encounter Details Date Type Department Care Team Description 04/09/2019 - [facility] Family Medicine Jennifer Shafer FNP [address] [facility] [address] [place] [address] Decompensated 04/17/2019 Encounter (SHASHANK 10D) Toi Kam MD [address] [place] [phone] hepatic cirrhosis 712 [facility] Dustin Vance MD [address] [place] [address] [address] [place], [place] [phone] [place] Kathy Gonzalez, DO [address] [facility] [address] [place], [place] [phone] Allergies Active Allergy Reactions Severity Noted Date Comments Penicillins Itching, Nausea and/or Vomiting 05/09/2013 documented as of this encounter (statuses as of 04/17/2019) Medications Medication Sig Dispensed Refills Start Date End Date Status FLUoxetine (PROZAC) Take 40 mg by 0 Active 40 mg capsule mouth daily. zolpidem (AMBIEN) 10 Take 10 mg by 0 Active mg tablet mouth at bedtime as needed for Insomnia. metFORMIN Take 1,000 mg 0 Active (GLUCOPHAGE) 1,000 mg by mouth 2 tablet (two) times daily with meals. ferrous sulfate 325 Take 1 tablet 30 tablet 2 09/23/2018 Active mg (65 mg iron) by mouth tabletIndications: daily. Closed fracture of right tibia and fibula, initial encounter propranolol 10 mg Take 1 tablet 60 tablet 2 10/01/2018 Active tabletIndications: by mouth 2 Gastrointestinal (two) times hemorrhage, daily. unspecified gastrointestinal hemorrhage type, Melena spironolactone 100 mg Take 1 tablet 30 tablet 2 10/02/2018 Active tabletIndications: by mouth Gastrointestinal daily. hemorrhage, unspecified gastrointestinal hemorrhage type, Melena furosemide 40 mg Take 1 tablet 30 tablet 2 10/02/2018 Active tabletIndications: by mouth Gastrointestinal daily. hemorrhage, unspecified gastrointestinal hemorrhage type, Melena insulin degludec inject 40 0 Active (TRESIBA U-100 Units under INSULIN SC) the skin daily. alendronate 70 mg TAKE 1 TABLET 11 09/10/2018 Active tablet BY MOUTH ONCE A WEEK amitriptyline 100 mg TAKE 1 TABLET 5 09/10/2018 Active tablet BY MOUTH ONCE DAILY AT BEDTIME gabapentin 600 mg Take 600 mg 5 09/06/2018 Active tablet by mouth 2 (two) times daily. cyclobenzaprine 10 mg Take 1 tablet 60 tablet 0 12/03/2018 Active tabletIndications: by mouth 3 Charcot's joint of (three) times foot, right daily. ondansetron (ZOFRAN Take 1 tablet 6 tablet 0 12/08/2018 Active ODT) 4 mg by mouth disintegrating every 8 tabletIndications: (eight) hours Nausea, Pain at as needed for surgical site Nausea and Vomiting (N/V). fluticasone Use 1 [place] 16 g 0 04/18/2019 Active propionate 50 in each mcg/actuation nasal nostril sprayIndications: daily. Community acquired pneumonia of left lower lobe of lung benzonatate 100 mg Take 1 21 capsule 0 04/17/2019 Active capsuleIndications: capsule by Community acquired mouth 3 pneumonia of left (three) times lower lobe of lung daily as needed for Cough for up to 21 doses. lactulose 10 gram/15 Take 30 mL by 1 Bottle 0 04/17/2019 Active mL mouth 3 solutionIndications: (three) times Community acquired daily as pneumonia of left needed for lower lobe of lung Constipation. levoFLOXacin 750 mg Take 1 tablet 3 tablet 0 04/18/2019 Active tabletIndications: by mouth 0 Community acquired every 24 pneumonia of left (twenty-four) lower lobe of lung hours for 3 days. pantoprazole 40 mg EC Take 1 tablet 30 tablet 1 04/17/2019 Active tabletIndications: by mouth Community acquired daily. pneumonia of left lower lobe of lung ipratropium-albuterol Inhale 3 mL 28 Vial 0 04/17/2019 Active 0.5 mg-3 mg(2.5 mg every 6 (six) base)/3 mL nebulizer hours as solutionIndications: needed for Community acquired Wheezing. pneumonia of left lower lobe of lung HYDROcodone-acetamino Take 1 tablet 45 tablet 0 12/03/2018 Discontinued phen (NORCO) 10-325 by mouth 0 mg tabletIndications: every 6 (six) Charcot's joint of hours as foot, right needed for Pain (scale 7-10). gabapentin 600 mg Take 1 tablet 60 tablet 0 12/03/2018 Discontinued tabletIndications: by mouth 3 0 Charcot's joint of (three) times foot, right daily. docusate (COLACE) 100 Take 1 20 capsule 0 12/08/2018 Discontinued mg capsule by 0 capsuleIndications: mouth daily. Nausea, Pain at surgical site documented as of this encounter (statuses as of 04/17/2019) Active Problems Problem Noted Date Anemia 04/09/2019 Decompensated hepatic cirrhosis 04/09/2019 Esophageal varices determined by endoscopy 10/23/2018 Overview: Added automatically from request for surgery [id number] Diabetic neuropathy associated with type 2 diabetes mellitus 10/11/2018 Charcot's joint of ankle, right 10/11/2018 Charcot's joint of foot, right 10/11/2018 Fracture dislocation of ankle, right, closed, initial encounter 10/11/2018 Bleeding esophageal varices, unspecified esophageal varices type 10/10/2018 Overview: Added automatically from request for surgery [id number] Melena 09/28/2018 Hypotension due to hypovolemia 09/28/2018 GIB (gastrointestinal bleeding) 09/28/2018 Tibia/fibula fracture 09/22/2018 Pain pelvic 05/25/2013 Cirrhosis 05/25/2013 Abnormal menses 05/25/2013 UTI (urinary tract infection) 05/12/2013 Overview: Ok per Dr. Chaudhari to give Keflex 500mg BID x 7 days Encounter for routine gynecological examination 05/09/2013 Overview: ICD10 Diagnosis Term Vehicle Assembler Utility Type 2 diabetes mellitus without complications 05/09/2013 Overview: ICD10 Diagnosis Term Vehicle Assembler Utility Other and unspecified ovarian cyst 05/09/2013 Overview: Medical records from [facility] on 04/02/2013. Transvaginal USG. Impression: 4.2cm cyst [...] as of this encounter (statuses as of 04/17/2019) Resolved Problems Problem Noted Date Resolved Date Other abnormal Papanicolaou smear of cervix and cervical 01/30/20082013 HPV(795.09) Contraceptive management 01/30/2008 05/09/2013 Overview: ICD10 Diagnosis Term Vehicle Assembler Utility delivery delivered 01/25/2008 05/09/2013 Overview: ICD10 Diagnosis Term Vehicle Assembler Utility Diabetes mellitus during , antepartum 11/05/2007 05/09/2013 Overview: ICD10 Diagnosis Term Vehicle Assembler Utility Other ill-defined heart disease 05/09/2013 Need for prophylactic vaccination with tetanus toxoid alone 05/09/2013 Other specified and placental problems affecting management of 2013 mother, antepartum Papanicolaou smear of cervix with low grade squamous intraepithelial 2013 lesion (LGSIL) Tubal ligation status 05/09/2013 documented as of this encounter (statuses as of 04/17/2019) Immunizations Name Administration Dates Next Due Influenza Virus Vaccine Quad .5 mL IM 6+ MO 04/17/2019 Pneumococcal Polysaccharide, PPSV23 (PNEUMOVAX) 04/17/2019 Td 04/02/2008 documented as of this encounter Social History Tobacco Use Types Packs/Day Years Used Date Former Smoker Cigarettes 1 Smokeless Tobacco: Never Used Comments: quit a year ago Alcohol Use Drinks/Week oz/Week Comments No Prior occasional use Education Answer Date Recorded What is the [...] of this encounter Last Filed Vital Signs Vital Sign Reading Time Taken Comments Blood Pressure 113/60 04/17/2019 12:06 PM RESIDENTIAL LEASING MANAGER Pulse 68 04/17/2019 2:59 PM RESIDENTIAL LEASING MANAGER Temperature 36.8 C (98.2 F) 04/17/2019 12:06 PM RESIDENTIAL LEASING MANAGER Respiratory Rate 18 04/17/2019 2:59 PM RESIDENTIAL LEASING MANAGER Oxygen Saturation 100% 04/17/2019 2:59 PM RESIDENTIAL LEASING MANAGER Inhaled Oxygen Concentration - - Weight 75 kg (165 lb 4.8 oz) 04/11/2019 10:43 PM RESIDENTIAL LEASING MANAGER Height 167.6 cm (5' 6") 04/11/2019 10:43 PM RESIDENTIAL LEASING MANAGER Body Mass Index 26.68 04/11/2019 10:43 PM RESIDENTIAL LEASING MANAGER documented in this encounter Discharge Summaries Abigail Link RN - 04/17/2019 2:47 PM RESIDENTIAL LEASING MANAGER Care Management Discharge Disposition Note (DCDN) 5-2-1 Interventions: 5-2-1 Providers: 5-2-1 Patient Capacity Improvements: Discharge Plan for ongoing care and services: Is this a new referral: NA Patient Choice completed for referred services: NA DME location: NA Other DME location: Durable Medical Equipment: Home Health location: NA Discharge location(s): [address] [place] [id number] Patient choice completed for referred services: NA Discussed with patient/patients family involved in decision making: Patient or family caregiver understands, and agrees with discharge plan. Community resources/referrals made or provided to patient: Pt given [facility]. Pthas an appointment [facility] Transportation: Karl [place] [phone] Mental Status: Alert & Oriented to Person,Place & Time Living Arrangement: Home Other living arrangement: Address of living arrangement: [address] [place] [address] Funding Resources: Self Pay Nursing informed of discharge plan: Jordana Name of RN informed: Jordana Estimated discharge date: 04/17/2019 Time: 5:00pm Additional Information: Karl [place] [phone], will pick patient up or patient's daughter CM/SW Name & Contact number: ABIGAIL LINK RN [phone] The following information has been provided to the facility noted above: reason for the patient discharge or transfer; patients physical and psychosocial status; summary of care, treatment, servicesprovided to patient; and the patient progress toward goals. documented in this encounter Discharge Instructions AppointmentsBeena Burch - 04/10/2019 8:10 AM CSTYour follow up appointment with Dr Bloom Minoo April 15 @ 10:30 a.m [address] [facility] [address] [facility] [address] [phone] If you need to make changed to this appointment please call the office as soon as possible. DENTIAL LEASING MANAGER AttachmentsThe following attachments cannot be sent through Care Everywhere.Abdominal Pain, Adult (Angolan)Ascites (Angolan)documented in this encounter Progress Notes Abigail Link RN - 04/17/2019 4:15 PM CSTCare Management Note CM gave Martin Team printed copy of nebulizers machines at [facility] starting @ 24.99, Gertrude Link RN, BSN Care Coordinator 4: 17 PM CSTAl-Rell Reynoso MD - 04/17/2019 12:24 PM CSTBrief GI note: - Patient was seen and examined. Doing well and has no complaints today. Reported last night she wasmore SOB but today she is feeling better. Denied any abdominal pain, nausea, vomiting or any other complaints. - Physical exam: Abdomen is more distended today but is soft, non-tender with normoactive bowel sounds. Lower extremities with 1+ edema. - Blood workup unchanged when compared to yesterday. Assessment and recommendations: EtOH-related Cirrhosis, MELD 9 Ascites: Present on exam. Continue Low sodium diet, Continue Lasix and spironolactone. Strict I/O's and daily weights. If patient will remain inpatient please increase diuretics to 150 mg spironolactone and 60 mg of Lasix and monitor. Encephalopathy: Grade 0 - Continue Lactulose, titrate to achieve 3 loose bowel movements daily. Varices -EGD: Will need an EGD as an outpatient. Will arrange. SBP -Previous episodes: None HCC Surveillance - AFP and US every 6 months. Can be done as an outpatient. Immunity screening: vaccinate for HBV and HAV if not immune Odynophagia, improved Likely pill esophagitis Recommendations: - Continue PPI and Lidocaine viscous. - Plan for EGD as an outpatient. - Will arrange for outpatient clinic follow up. Discussed with Dr. Avila. Rell Martinez MD PGY4 - Gastroenterology and hepatology Pager # : [phone] DENTIAL LEASING MANAGER Associated attestation - Tanya Avila MD - 04/17/2019 3:58 PM RESIDENTIAL LEASING MANAGER Discussed 04/17/19 Esophagitis improved. Plan for out patient EGD to allow respiratory status to return to baseline. Tanya Avila MD Milk Collector Division of Gastroenterology and Hepatology [facility] Abigail Link RN - 04/15/2019 2:57 PM CSTCare Management Note CM spoke with patient and gave a list of [facility]. Pt couldn't read the phone # , CM wrote enlarged number for patient to see. Gertrude Link RN, BSN Care Coordinator 2: 59 PM Zaynab Campo, ZACH - 04/14/2019 3:45 PM CST Modified Barium Swallow Speech-Language Pathology Services Rosanna Jaylen : 1975 Age: [age] year old Sex: female STEPHENSON: 04/14/2019 Time In/Out: [id number] Referring Physician: Lashanda Goddard MD Date of Referral: 04/14/2019 Medical Diagnosis: oropharyngeal dysphagia; feeding difficulty Reason for Referral: r/o aspiration; objectively evaluate the oropharyngeal swallow with imaging; SUBJECTIVE: Patient awake/alert, agreeable to participate. No family present. Of note, Full Barium swallow study completed prior to today's session. OBJECTIVE: Rosanna [place] was seen for modified barium swallow study (MBS). Rosanna York is a 43 year oldHispanic female with a PMH of EtOH cirrhosis (c/ b ascites, EV s/p banding last 09/2018), DM II (c/b osteomyelitis), osteoporosis (on alendronate, R ankle fracture 12/2018) who presented to [facility] on 04/09 with complaint of increasing abdominal distention and odynophagia, subsequently transferred to [place] for higher level of care. Patient is now s/p therapeutic paracentesis, fluid for SBP. This service consulted for swallow evaluation due to recent concern for pneumonia vs pneumonitis. FL Barium Swallow Preliminary Results, Date : 04/14/2019 IMPRESSION No structural esophageal abnormality. Delayed esophageal motility and gastroesophageal reflux. Pertinent Imaging: Xr Chest 1 Vw Result Date: 04/13/2019 Patchy opacification in the left lower lobe concerning for pneumonia. Small left pleural effusion. Preliminary Report Dictated by Resident: Aracelis Machado I, Olaf Baez MD., have reviewed this study and agree with the above report. Previous STENCIL MAKER Services/Swallow History: Patient seen by this service for clinical swallow evaluation at [facility] on 04/11/19 - at which time, STENCIL MAKER rec'd further work-up with GI and signed off. Clinical swallow re-evaluation completed earlier today and STENCIL MAKER rec'd completion of MBS. Past Medical History: Diagnosis Date Abnormal Papanicolaou smear of cervix and cervical HPV Anemia Anxiety Not clincially diagnosed Cirrhosis Diabetes mellitus during , antepartum 11/05/2007 Kidney disease Need for prophylactic vaccination with tetanus toxoid alone Other ill-defined heart disease Other specified and placental problems affecting management of mother , antepartum Ovarian cyst Papanicolaou smear of cervix with low grade squamous intraepithelial lesion (LGSIL) Tobacco use disorder 05/09/2013 Tubal ligation status Type II or unspecified type diabetes mellitus without mention of complication, uncontrolled Past Surgical History: Procedure Laterality Date ANKLE ARTHRODESIS Right 12/03/2018 Surgeon: Ric Sal MD; Location: [facility] OR Location ESOPHAGOGASTRODUODENOSCOPY N/A 09/30/2018 Surgeon: Wes Banerjee MD; Location: Endoscopy () OR Location ESOPHAGOGASTRODUODENOSCOPY N/A 10/23/2018 Surgeon: Wes Banerjee MD; Location: Endoscopy () OR Location LAP,CHOLECYSTECTOMY 1998 SUBTALAR ARTHRODESIS Right 12/03/2018 Surgeon: Ric Sal MD; Location: [facility] OR Location Current Diet Texture/Means of Nutrition: NPO Oral Mechanism: Structure: dentate; moist oral mucosa Function: Unremarkable - no facial droop/weakness, symmetric labial spread and pucker, lingual protrusion midline with equal lateralization, symmetrical palatal retraction, no dysphonia, no dysarthria, no apraxia Hearing: Within Functional Limits for speech EVALUATION: Patient presented with barium in thin liquids, nectar-thick liquids, puree and chewable solid consistencies viewed under fluoroscopy in the AP and lateral plane with Dr. Ordonez from radiology. COMPONENTS AND SCORES ORAL IMPAIRMENT Component 1-Lip Closure: 1=Interlabial escape, no progression to anterior lip Component 2-Tongue Control During Bolus Hold: 0=Cohesive bolus between tongue to palatal seal Component 3-Bolus Preparation/Mastication: 0=Timely & efficient chewing and mashing Component 4-Bolus Transport/Lingual Motion: 0=Brisk tongue action Component 5-Oral Residue: 1=Trace residue lining oral structures Component 6-Initiation of Pharyngeal Swallow: 1=Bolus head in valleculae PHARYNGEAL IMPAIRMENT Component 7-Soft Palate Elevation: 0=No bolus between soft palate (SP)/ pharyngeal wall (PW) Component 8-Laryngeal Elevation: 0=Complete superior movement of thyroid cartilage with complete approximation of arytenoids to epiglottic petiole Component 9-Anterior Hyoid Excursion: 0=Complete anterior movement Component 10-Epiglottic Movement: 0=Complete inversion Component 11-Laryngeal Vestibular Closure-Height Swallow: 0=Complete; no air/ contrast in laryngeal vestibule Component 12-Pharyngeal Stripping Wave: 0=Present - complete Component 13-Pharyngeal Contraction (A/P view only): 0=Complete Component 14-Pharyngoesophageal Segment Openin=Complete distension and complete duration; no obstruction of flow Component 15-Tongue Base (TB) Retraction: 0=No contrast between TB and posterior pharyngeal wall (PW) Component 16-Pharyngeal Residue: 1=Trace residue within or on pharyngeal structures ESOPHAGEAL IMPAIRMENT Component 17-Esophageal Clearance Upright Position: 1=Esophageal retention FACILITATIVE TECHNIQUES ATTEMPTED: bolus modification and mode of presentation Images/loops available for review in PACS. Patient/Family Education: verbal; review of loops Patient/Family Goal: safe PO intake ASSESSMENT: Rosanna [place] presents with grossly safe and functional oropharyngeal swallow. Patient demonstrated adequate bolus acceptance and mastication with timely A-P bolus transit and swallow initiation at thelevel of the vallecula. Adequate hyolaryngeal excursion results in complete laryngeal vestibule and good airway protection with no penetration/aspiration observed. Tongue base retraction and pharyngealconstriction are also adequate resulting in complete laryngeal vestibule closure. Of note, patient completed full barium swallow study prior to MBS - per radiologist patient with "delayed esophageal motility and gastroesophageal reflux" which was visualized again during this study. However, this did not appear to impact the safety/efficiency of her oropharyngeal swallow function at this time and unknown/unclear whether this best explains patient's symptoms. Will defer further work-up/management to primary team and GI. It is also noted that patient was coughing frequently throughout today's study however this was without associated/visualized aspiration. Overall, patient swallow is safe and functional for initiation of PO diet from an oropharyngeal standpoint. Results/recs discussed with patient and team, all in agreement. No further acute STENCIL MAKER services indicated at this time. Impressions: grossly safe and functional oropharyngeal swallow; no penetration/ aspiration Prognosis for safe po intake/meeting nutritional needs is good from an oropharyngeal standpoint due to above findings. PLAN: 1. Recommend pt initiate a regular-textured diet with thin liquids and swallow precautions: sit fully upright/chair, small single sips/bites, alternate sips/ bites and remain upright for 30 minutes after meals 2. Will defer further work-up/management to primary team and GI. 3. No further acute STENCIL MAKER services indicated at this time, so service is signing off. Please re-consult if indicated. Thank you. Zaynab Neal MS, [facility]-STENCIL MAKER Speech Language Pathology Pager: [phone] Office Number: [phone] signed by Zaynab Neal, STENCIL MAKER at 04/14/2019 6:13 PM Abigail Barron, RN - 04/14/2019 2:29 PM CSTCare Management Continued Stay Assessment LOS Day: 5 Estimated /Planned Discharge Date: 04/16/2019 [place] female 43 year old Date CM/SW last Face to Face completed with patient/family: 04/14/2019 Funding source: No coverage found. Insurance DC manufacturing planner: PCP:Petra Bloom Patient/Family/MPOA/Caregiver Engaged with Transitional Care Plan: yes Patient/Family/MPOA/Caregiver concurs with proposed discharge plan: yes Name, Relationship to Patient and contact number of individual acting on behalf of the patient: spouse Karl [phone] Chief Complaint/Admitting Dx:anemia; ascites; uti Hospital Problems: Decompensated hepatic cirrhosis Anemia Summary of hospital course: Rosanna York is a 43 year old female with PMH ofCirrhosis (likely 2/2 alcohol, quit a year ago) with esophageal varices s/p banding in 09/2018, DM with neuropathy c/b charcot foot and osteomyelitis,GERD, gout, right ankle fracture dislocation s/p ankle and subtalar arthrodesis (in 12/2018, currently in leg immobilizer)initially presented to [facility] on 04/09/2018 for abdominal distention with associated abdominal pain,SOB X 3 days andintermittent black, softstools-2 weeks agobut are normal now. At [facility], Hgb 6.9 -> iron studies c/w iron deficiency, received 1 unit PRBC; CT abdomen pelvis w contrast - moderate volume ascites, small gastric and lower esophageal varices, portal hypertension; paracentesis done by IR with 3.8 litre fluid removal ( negative for SBP), started on lasix and spironolactone but were stopped after 1 dose due to low BP (75/36) -> given fluids, albumin and startedon midodrine. Treated with Cipro for SBP ppx and ?UTI. She was planned for EGD on 04/10/2018 but was cancelled as she ate breakfast. She was then transferred to [facility] for further dysphagia workup. GI consulted. Plan for EGD Sunday. CM/SW Interventions/Resources provided: Continue to monitor for DC, HH & Transportation needs CM/SW Interventions/Resources still needed: same as above Anticipated Discharge Destination: Home If DC to home, who will support patient: Karl Anticipated DME needs: None Referrals sent: not applicable If no, why/when will referral be sent:: NA Has patient been accepted: not applicable Revised plan if not accepted: NA What is the clinical care happening right now that must be done in the hospital and only the hospital: patient currently on IV abx X2, EGD was canceled today until patient pulmonary function has improved Please addend note following Length of Stay rounds and complete section below Were any recommendations made during LOS rounds on this patient:no If yes, what new recommendations were made at LOS: NA Gertrude Link RN, BSN [employer] l-Rell Reynoso MD - 04/14/2019 8:12 AM CSTBrief GI note: - Patient seen and examined. Reported doing better today. Denied any complaints except feeling tiredwith improved SOB. - Physcical exam remarkable for asterixis, distended but soft abdomen and 1_ lower extremity edema. - Please hold diuretics given CHRISTINE. - Please increase lactulose given encephalopathy. - Timing of EGD to be determined pending optimization of respiratory status. Patient was discussed with Dr. Avila. GI will continue to follow. Please call with any questions. Rell Martinez MD PGY4 - Gastroenterology and hepatology Pager # : [phone] DENTIAL LEASING MANAGER Associated attestation - Tanya Avila MD - 04/15/2019 8:06 AM RESIDENTIAL LEASING MANAGER Discussed 04/14/19. Tanya Avila MD Milk Collector Division of Gastroenterology and Hepatology [facility] Nicole Jones MD - 04/14/2019 6:14 AM CST [place] Team Medicine Progress Note Date of Service: 04/14/2019 06:14 Chief Complaint: abdominal distention, dysphagia 24-HOUR EVENTS: NAEO SUBJECTIVE: Patient is reporting throat pain today. She indicates this is in the middle of her throat, not at the back of her mouth. She describes it as a sensation of food being stuck. 10 pain, made worse by swallow. She has not had any of the viscous lidocaine this morning, but thinks it might help. She alsohas a cough, but this is no worse than yesterday. She denies fever/chills, abdominal pain, N/ V. She currently denies pain. She had 3 BMs yesterday. PHYSICAL EXAM: Vitals: 04/13/19 1630 04/13/19 1945 04/13/19 2343 04/14/19 0347 BP: 101/53 122/89 95/52 Pulse: 76 78 100 99 Resp: 18 18 18 18 Temp: 36.6 C (97.9 F) 36.9 C (98.5 F) 37.7 C (99.9 F) TempSrc: Oral Oral Axillary SpO2: 94% 96% 90% 98% Weight: Height: No intake or output data in the 24 hours ending 04/14/19 0614 General: alert and oriented x 4 (person, place, date/time and situation); no apparent distress Lungs: faint bibasilar crackles Cardio: regular rate and rhythm, +systolic murmur Abdomen: soft; non-tender; +distended; normoactive bowel sounds Extremities: 1+ BLE edema Neuro: no focal deficits LABS/IMAGING - reviewed, pertinent results as below: Recent Labs 04/11/1941004/12/1942404/13/19 0351 WBC 4.71 5.87 6.90 HGB 7.3* 7.5* 8.0* HCT 24.3* 24.1* 26.7* PLT 82* 94* 102* Recent Labs 04/11/1941004/12/1942804/13/19 0351 NA 138 135 136 K 4.0 3.7 4.5 CL 107 106 106 TCO2 24 22* 22* AGAP 7 7 8 BUN 22 17 15 CREAT 1.18* 0.93 0.96 CA 8.0* 7.6* 8.0* GLU 156* 69* 178* ALB 2.8* 2.9* 3.1* Recent Labs 09/28/18 0236 09/29/18 1030 09/30/18 0334 10/01/18 0424 04/10/19 0521 04/11/19 0411 04/12/19 0429 04/13/19 0351 04/14/19 0345 ALB 2.7* 2.6* 2.4* 2.4* < > 2.7* 2.8* 2.9* 3.1* 2.5* TPRO 6.4 6.3 6.0* 5.9* < > 6.3 6.4 6.4 7.2 5.9* BILIT 0.7 1.6* 0.9 0.6 < > 0.7 0.7 1.0 1.1 1.2* BILIUNCON 0.5 1.0 0.4 0.2 -- -- -- -- -- -- BILICONJ 0.0 0.0 0.0 0.0 -- -- -- -- -- -- ALT 20 36 31 30 < > 16 15 16 19 15 AST 34 101* 59* 47* < > 35 34 42* 60* 32 ALKPHOS 289* 293* 267* 276* < > 303* 314* 292* 351* 261* < >=values in this interval not displayed. ASSESSMENT/PLAN Rosanna York is a 43 year old female admitted to the hospital with: Dysphagia and odynophagia Decompensated cirrhosis with ascites 2/2 medication non-compliance Esophageal varices s/p banding in 09/2018 GERD CHRISTINE likely 2/2 hypotension + contrast study Iron deficiency anemia Temporary drop in SpO2 yesterday likely isolated activity due to coughing as patient has remained stable on room air. She also appears to be volume overloaded, likely 2/2 cirrhosis off diuretics. Will resume diuretics today. She is have 3 BMs daily. Plan: -F/u GI recs -Continue Protonix IV BID -Continue lactulose, titrate to 2-3 BMs/day -Resume Lasix 40 mg daily, spironolactone 100 mg daily -Fluid and salt restriction -Fluid diet today, NPO past midnight for EGD tomorrow -STENCIL MAKER evaluation today -Viscous lidocaine prn Urinary Urgency [facility] urine sample appears contaminated (19 squamous epithelial cells). Treated with Cipro at [facility] for possible UTI. 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 Gonzalez. 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 At [facility], Hgb 6.9 -> iron studies c/w iron deficiency, received 1 unit PRBC; CT abdomen pelvis w contrast - moderate volume ascites, small gastric and lower esophageal varices, portal hypertension ; paracentesis done by IR with 3.8 litre fluid removal (negative for SBP), started on lasix and spironolactonebut were stopped after 1 dose due to low BP ( 75/36) -> given fluids, albumin and started on midodrine. Treated with Cipro for SBP ppx and ?UTI. She was planned for EGD on 04/10/2018 but was cancelled as she ate breakfast. She was then transferred to [facility] for further dysphagia workup. GI consulted. Plan for EGD Sunday, with MBS today. CURRENT MEDICATIONS - reviewed. Current Facility-Administered Medications Medication Dose Route Frequency Last Rate Last Dose acetaminophen (TYLENOL) tablet 650 mg 650 mg Oral Q6HPRN cefTRIAXone (ROCEPHIN) 1,000 mg in NaCl 0.9% (NS) 50 mL MINI-BAG 1,000 mg IV Piggyback Q24H ABX 1,000 mg at 04/13/19 1833 furosemide (LASIX) tablet 40 mg 40 mg Oral DAILY insulin glargine (LANTUS U-100) injection 10 Units 10 Units Subcutaneous QHS 5 Units at 04/13/19 220 metroNIDAZOLE (FLAGYL I.V.) Piggyback 500 mg 500 mg IV Piggyback Q8H ABX 500 mg at 04/14/19 0233 spironolactone (ALDACTONE) tablet 100 mg 100 mg Oral DAILY heparin (porcine) injection 5,000 Units 5,000 Units Subcutaneous Q12H 5, 000 Units at 04/13/201905 HYDROcodone-acetaminophen (NORCO 5) 5-325 mg tablet 1 tablet 1 tablet Oral Q6HPRN 1 tablet at04/13/19 1444 lidocaine 2% viscous (LIDOCAINE VISCOUS) 2 % solution 15 mL 15 mL Oral Q4HPRN 15 mL at 04/13/19 0331 lactulose (CEPHULAC) solution 30 mL 30 mL Oral TID 30 mL at 04/13/19 1444 FLUoxetine (PROZAC) capsule 20 mg 20 mg Oral DAILY 20 mg at 04/13/19 0803 gabapentin (NEURONTIN) tablet 600 mg 600 mg Oral BID 600 mg at 04/13/192004 ondansetron (ZOFRAN (PF)) injection 4 mg 4 mg Slow IV Push Q6HPRN 4 mg at 04/13/19 2329 pantoprazole (PROTONIX) 40 mg in NaCl 0.9% (NS) 100 mL MINI-BAG 40 mg IV Piggyback Q12H 40 mgat 04/13/19 220 Sliding Scale Insulin - Aspart (NOVOLOG) + Fsbg Testing Subcutaneous TID MEALS+HS 1 Units at04/13/19 1239 DENTIAL LEASING MANAGER Associated attestation - Kathy Gonzalez DO - 04/15/2019 3:37 PM CSTI personally examined the patient on 04/14/[address] Jones's resident note with the following addition(s): - Ms. York has history of decompensated cirrhosis presented with abdominal pain, which has resolved after therapeutic paracentesis, SBP was ruled out. She also reported black stool 2 weeks prior to this admission however has resolved and not recurred during this admission. - During this hospitalization, Ms. York has an episode of hypoxia and CXR with LLL consolidation concerning for pneumonia, suspected aspiration pneumonia due to recent history of dysphagia. Patient is currently treated for aspiration pneumonia. - Dysphagia: pending speech evaluation with MBS. Appreciate GI recs. I actively participated in the decision-making process. Please see the resident 's note for additional details. Kathy Gonzalez, /PhD Chief Resident & Clinical Instructor # [id number] Edwin Clark MD - 04/13/2019 3:21 PM CSTGI Fellow Brief Update Note Patient noted to have been hypoxic overnight requiring ventimask. Patient complaining of continued coughing when I went to see her. CXR w/ likely LLL pneumonia. Recommendations: 1. Will hold off on EGD until improvement in pulmonary status 2. Obtain Speech therapy evaluation given concern for possible aspiration 3. Maintain NPO until speech evaluation 4. Treatment of pneumonia per primary team GI will continue to follow, please contact us with any additional questions Edwin Clark PGY-6 Michelle Lozano PT - 04/13/2019 10:54 AM CSTPT note: Consult received, chart reviewed. Attempted PT evaluation, however patient in the shower currently with PCT assist. Will follow up later as able. Michelle Ballesteros PT, DPT Pager # [phone] Lashanda Aguilar MD - 04/13/2019 10:49 AM CST [place] Team Medicine Progress Note Date of Service: 04/13/2019 10:49 Chief Complaint: abdominal distention, dysphagia 24-HOUR EVENTS: -SpO2 down to 80s overnight, transitioned to Ventimask with improvement in SpO2 to mid-90s SUBJECTIVE: Patient states she feels very tired. She states she became short of breath overnight. She reports similar episodes of shortness of breath occurring at home , which she previously attributed to anxiety. She currently denies pain. She had 2 BMs yesterday. PHYSICAL EXAM: Vitals: 04/12/19 2320 04/13/19 0306 04/13/19 0311 04/13/19 0725 BP: 131/69 (!) 151/81 110/57 Pulse: 79 109 114 96 Resp: 18 21 Temp: 36.8 C (98.3 F) 37.3 C (99.2 F) 37.7 C (99.9 F) 37.6 C ( 99.6 F) TempSrc: Oral Oral Axillary SpO2: 93% 96% 96% Weight: Height: No intake or output data in the 24 hours ending 04/13/19 1049 General: alert and oriented x 4 (person, place, date/time and situation); no apparent distress Lungs: faint bibasilar crackles Cardio: regular rate and rhythm, +systolic murmur Abdomen: soft; non-tender; +distended; normoactive bowel sounds Extremities: 1+ BLE edema Skin: small circular areas of hyperpigmentation in bilateral lower legs Neuro: no focal deficits LABS/IMAGING - reviewed, pertinent results as below: Recent Labs 04/11/1941004/12/1942404/13/19 0351 WBC 4.71 5.87 6.90 HGB 7.3* 7.5* 8.0* HCT 24.3* 24.1* 26.7* PLT 82* 94* 102* Recent Labs 04/11/19 04104/12/19 0429 04/13/19 0351 NA 138 135 136 K 4.0 3.7 4.5 CL 107 106 106 TCO2 24 22* 22* AGAP 7 7 8 BUN 22 17 15 CREAT 1.18* 0.93 0.96 CA 8.0* 7.6* 8.0* GLU 156* 69* 178* ALB 2.8* 2.9* 3.1* Recent Labs 09/28/18 0236 09/29/18 1030 09/30/18 0334 10/01/18 0424 04/09/19 1103 04/10/19 0521 04/11/19 0411 04/12/19 0429 04/13/19 0351 ALB 2.7* 2.6* 2.4* 2.4* < > 3.4* 2.7* 2.8* 2.9* 3.1* TPRO 6.4 6.3 6.0* 5.9* < > 8.0 6.3 6.4 6.4 7.2 BILIT 0.7 1.6* 0.9 0.6 < > 1.0 0.7 0.7 1.0 1.1 BILIUNCON 0.5 1.0 0.4 0.2 -- -- -- -- -- -- BILICONJ 0.0 0.0 0.0 0.0 -- -- -- -- -- -- ALT 20 36 31 30 < > 18 16 15 16 19 AST 34 101* 59* 47* < > 36 35 34 42* 60* ALKPHOS 289* 293* 267* 276* < > 413* 303* 314* 292* 351* < >=values in this interval not displayed. ASSESSMENT/PLAN Rosanna York is a 43 year old female admitted to the hospital with: Dysphagia and odynophagia Decompensated cirrhosis with ascites 2/2 medication non-compliance Esophageal varices s/p banding in 09/2018 GERD CHRISTINE likely 2/2 hypotension + contrast study Iron deficiency anemia Patient noted to have episode of tachypnea, sharp chest pain, and anxiety overnight. She reports similar episodes at home related to anxiety. Temporary drop in SpO2 may have been related to breathing pattern, as she is now stable on room air. She also appears to be volume overloaded, likely 2/2 cirrhosis off diuretics. Her BP was stable yesterday off midodrine, so we will resume diuretics. Plan: -F/u GI recs -Continue Protonix IV BID -Continue lactulose, titrate to 2-3 BMs/day -Resume Lasix 40 mg daily, spironolactone 100 mg daily -Fluid and salt restriction -Fluid diet today, NPO past midnight for EGD tomorrow -Viscous lidocaine prn Urinary Urgency [facility] urine sample appears contaminated (19 squamous epithelial cells). Treated with Cipro at [facility] for possible UTI. 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 (Hgb A1C 11.9) - Continue lantus 20 units QAM (due to NPO and poor PO intake, is on Lantus 42 units at home) + SSI Hx Gout Right ankle fracture dislocation s/p ankle and subtalar arthrodesis (in 12/2018, currently in leg immobilizer) Depression - c/w prozac, gabapentin PAIN: Controlled [place] Prophylaxis: DVT- heparin Stress Ulcer: pantoprazole Code Status: addressed: FULL Lashanda Goddard MD Internal Medicine PGY-3 Doctor #: [id number] END OF DAILY PROGRESS NOTE HOSPITAL COURSE Rosanna York is a 43 year old female with PMH of Cirrhosis (likely 2/2 alcohol , quit a year ago) with esophageal varices s/p banding in 09/2018, 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 At [facility], Hgb 6.9 -> iron studies c/w iron deficiency, received 1 unit PRBC; CT abdomen pelvis w contrast - moderate volume ascites, small gastric and lower esophageal varices, portal hypertension ; paracentesis done by IR with 3.8 litre fluid removal (negative for SBP), started on lasix and spironolactonebut were stopped after 1 dose due to low BP ( 75/36) -> given fluids, albumin and started on midodrine. Treated with Cipro for SBP ppx and ?UTI. She was planned for EGD on 04/10/2018 but was cancelled as she ate breakfast. She was then transferred to [facility] for further dysphagia workup. GI consulted. Plan for EGD Sunday. CURRENT MEDICATIONS - reviewed. Current Facility-Administered Medications Medication Dose Route Frequency Last Rate Last Dose acetaminophen (TYLENOL) tablet 650 mg 650 mg Oral Q6HPRN [START ON 04/14/2019] furosemide (LASIX) tablet 40 mg 40 mg Oral DAILY insulin glargine (LANTUS U-100) injection 10 Units 10 Units Subcutaneous QHS heparin (porcine) injection 5,000 Units 5,000 Units Subcutaneous Q12H 5, 000 Units at 04/13/200707 HYDROcodone-acetaminophen (NORCO 5) 5-325 mg tablet 1 tablet 1 tablet Oral Q6HPRN 1 tablet at04/13/19 0244 lidocaine 2% viscous (LIDOCAINE VISCOUS) 2 % solution 15 mL 15 mL Oral Q4HPRN 15 mL at 04/13/19 0331 lactulose (CEPHULAC) solution 30 mL 30 mL Oral TID 30 mL at 04/12/192002 FLUoxetine (PROZAC) capsule 20 mg 20 mg Oral DAILY 20 mg at 04/13/19 0803 gabapentin (NEURONTIN) tablet 600 mg 600 mg Oral BID 600 mg at 04/13/19 0803 ondansetron (ZOFRAN (PF)) injection 4 mg 4 mg Slow IV Push Q6HPRN 4 mg at 04/12/19 0946 pantoprazole (PROTONIX) 40 mg in NaCl 0.9% (NS) 100 mL MINI-BAG 40 mg IV Piggyback Q12H 40 mgat 04/13/19 0809 Sliding Scale Insulin - Aspart (NOVOLOG) + Fsbg Testing Subcutaneous TID MEALS+HS Stopped at04/13/19 0932 DENTIAL LEASING MANAGER Associated attestation - Kathy Gonzalez DO - 04/13/2019 4:51 PM CSTI personally examined the patient on 04/13/[address] Goddard's resident note with the following addition(s): - Ms. York has lots of coughing this morning during round however did not need O2 supplement. Overnight she had one episode of SOB and desaturation. CXR with LLL consolidation concerning for pneumonia. Her WBC is trending up however not clear leukocytosis and she has been afebrile. In the setting of dysphasia, it is concerning for aspiration pneumonia vs. CAP. Will put on treatment for aspiration pneumonia for now and follow her clinical course. I actively participated in the decision-making process. Please see the resident 's note for additional details. Kathy Gonzalez DO/PhD Chief Resident & Clinical Instructor # [id number] Lashanda Goddard MD - 04/12/2019 7:14 AM CST [place] Team Medicine Progress Note Date of Service: 04/12/2019 07:14 Chief Complaint: abdominal distention, dysphagia 24-HOUR EVENTS: -Transferred from [facility] to [facility] team SUBJECTIVE: Patient reports globus sensation, dysphagia/odynophagia. She states she has mild STEPHENSON, but improved from admission. She did not have any BMs yesterday, but had 5 the day before. PHYSICAL EXAM: Vitals: 04/11/19 1900 04/11/19 2243 04/12/19 0038 04/12/19 0400 BP: 102/64 (!) 142/68 100/86 101/58 Pulse: 73 73 72 70 Resp: 18 18 18 16 Temp: 36.6 C (97.8 F) 36.4 C (97.6 F) 36.4 C (97.6 F) TempSrc: Temporal Artery Oral Oral SpO2: 100% 100% 99% 96% Weight: 75 kg (165 lb 4.8 oz) Height: 1.676 m (5' 6") Intake/Output Summary (Last 24 hours) at 04/12/2019 0714 Last data filed at 04/11/2019 2347 Gross per 24 hour Intake 1365 ml Output 900 ml Net 465 ml General: alert and oriented x 4 (person, place, date/time and situation); no apparent distress Lungs: bibasilar crackles Cardio: regular rate and rhythm, +systolic murmur Abdomen: soft; non-tender; +distended; normoactive bowel sounds Extremities: 1+ BLE edema Skin: circular areas of hyperpigmentation in bilateral lower legs Neuro: no focal deficits LABS/IMAGING - reviewed, pertinent results as below: ASSESSMENT/PLAN Rosanna York is a 43 year old female admitted to the hospital with: Dysphagia and odynophagia Decompensated cirrhosis with ascites 2/2 medication non-compliance Esophageal varices s/p banding in 09/2018 GERD CHRISTINE likely 2/2 hypotension + contrast study Iron deficiency anemia Transferred to [place] for workup of dysphagia. No evidence of SBP or UTI. Given Iron dextran for iron deficiency anemia. Currently no evidence of bleeding , but reports black stools 2 weeks ago. GI consulted for dysphagia evaluation. Plan: -F/u GI recs -Continue Protonix IV BID -Continue lactulose, titrate to 2-3 BMs/day -Lasix and spironolactone held, may resume tomorrow if BP stable after discontinuation of midodrine -Fluid and salt restriction Urinary Urgency [facility] urine sample appears contaminated (19 squamous epithelial cells). Treated with Cipro at [facility] for possible UTI. 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 (Hgb A1C 11.9) - Continue lantus 20 units QAM (due to NPO and poor PO intake, is on Lantus 42 units at home) + SSI Hx Gout Right ankle fracture dislocation s/p ankle and subtalar arthrodesis (in 12/2018, currently in leg immobilizer) Depression - c/w prozac, gabapentin PAIN: Controlled [place] Prophylaxis: DVT- heparin Stress Ulcer: pantoprazole Code Status: addressed: FULL Lashanda Goddard MD Internal Medicine PGY-3 Doctor #: [id number] END OF DAILY PROGRESS NOTE HOSPITAL COURSE Rosanna York is a 43 year old female with PMH of Cirrhosis (likely 2/2 alcohol , quit a year ago) with esophageal varices s/p banding in 09/2018, 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 At [facility], Hgb 6.9 -> iron studies c/w iron deficiency, received 1 unit PRBC; CT abdomen pelvis w contrast - moderate volume ascites, small gastric and lower esophageal varices, portal hypertension ; paracentesis done by IR with 3.8 litre fluid removal (negative for SBP), started on lasix and spironolactonebut were stopped after 1 dose due to low BP ( 75/36) -> given fluids, albumin and started on midodrine. Treated with Cipro for SBP ppx and ?UTI. She was planned for EGD on 04/10/2018 but was cancelled as she ate breakfast. She was then transferred to [facility] for further dysphagia workup. GI consulted. CURRENT MEDICATIONS - reviewed. Current Facility-Administered Medications Medication Dose Route Frequency Last Rate Last Dose HYDROcodone-acetaminophen (NORCO 5) 5-325 mg tablet 1 tablet 1 tablet Oral Q6HPRN 1 tablet at04/12/19 0044 insulin glargine (LANTUS U-100) injection 20 Units 20 Units Subcutaneous QHS midodrine (PROAMATINE) tablet 5 mg 5 mg Oral BIDPRN lactulose (CEPHULAC) solution 30 mL 30 mL Oral TID 30 mL at 04/11/19 0824 docusate (COLACE) capsule 100 mg 100 mg Oral DAILY 100 mg at 04/11/19 08 FLUoxetine (PROZAC) capsule 20 mg 20 mg Oral DAILY 20 mg at 04/11/19824 gabapentin (NEURONTIN) tablet 600 mg 600 mg Oral BID 600 mg at 04/11/192022 ondansetron (ZOFRAN (PF)) injection 4 mg 4 mg Slow IV Push Q6HPRN 4 mg at 04/09/191999 pantoprazole (PROTONIX) 40 mg in NaCl 0.9% (NS) 100 mL MINI-BAG 40 mg IV Piggyback Q12H 40 mgat 04/11/192035 Sliding Scale Insulin - Aspart (NOVOLOG) + Fsbg Testing Subcutaneous TID MEALS+HS Stopped at04/10/19 2100 DENTIAL LEASING MANAGER Associated attestation - Kathy Gonzalez DO - 04/13/2019 4:43 PM CSTI personally examined the patient on 04/12/[address] Goddard's resident note as written . I actively participated in the decision-making process. Please see the resident's note for additional details. Kathy Gonzalez DO/PhD Chief Resident & Clinical Instructor # [id number] Hung Hawkins MD - 04/11/2019 4:32 PM CST [facility] Hospitalist Progress Note SUBJECTIVE: C/o trouble swallowing with pain, food does not pass through. Feels weak. CURRENT MEDICATIONS - reviewed. Current Facility-Administered Medications Medication Dose Route Frequency Last Rate Last Dose ciprofloxacin HCl (CIPRO) tablet 500 mg 500 mg Oral Q12H 500 mg at 0824 lactulose (CEPHULAC) solution 30 mL 30 mL Oral TID 30 mL at 04/11/19823 docusate (COLACE) capsule 100 mg 100 mg Oral DAILY 100 mg at 04/11/19 08 FLUoxetine (PROZAC) capsule 20 mg 20 mg Oral DAILY 20 mg at 04/11/19 08 gabapentin (NEURONTIN) tablet 600 mg 600 mg Oral BID 600 mg at 04/11/19824 insulin glargine (LANTUS U-100) injection 42 Units 42 Units Subcutaneous QHS 42 Units at 04/10/192117 lactobacillus acidophilus (ACIDOPHILLUS) 25 million cell -100 mg captab 1 tablet 1 tablet Oral BID 1 tablet at 04/11/19823 midodrine (PROAMATINE) tablet 5 mg 5 mg Oral BID 5 mg at 04/11/19 08 ondansetron (ZOFRAN (PF)) injection 4 mg 4 mg Slow IV Push Q6HPRN 4 mg at 04/09/191999 pantoprazole (PROTONIX) 40 mg in NaCl 0.9% (NS) 100 mL MINI-BAG 40 mg IV Piggyback Q12H 40 mgat 04/11/19 0830 Sliding Scale Insulin - Aspart (NOVOLOG) + Fsbg Testing Subcutaneous TID MEALS+HS Stopped at04/10/19 2100 PHYSICAL EXAM: BP 110/66 | Pulse 75 | Temp 37.2 C (98.9 F) (Oral) | Resp 17 | Ht 1.651 m (5' 5") | Wt 75.3kg (166 lb) | SpO2 97% | BMI 27.62 kg/m General: No respiratory distress Abdomen: Soft, NTND Skin: No rash or lesions, normal turgot Neuro: AAOx3, no focal deficits Psych: Normal affect LABS/IMAGING - reviewed, pertinent results as below: CBC BMP PT/INR WBC x10^3 (/uL) Date Value 05/09/2013 7.9 WBC (10*3/L) Date Value 04/11/2019 4.71 NA (mmol/L) Date Value 04/11/2019 138 No results found for: PT RBC x10^6 (/uL) Date Value 05/09/2013 4.79 RBC (10*6/L) Date Value 04/11/2019 2.73 (L) K (mmol/L) Date Value 04/11/2019 4.0 INR (no units) Date Value 04/09/2019 1.1 PLT x10^3 (/uL) Date Value 05/09/2013 154 (L) PLT (10*3/L) Date Value 04/11/2019 82 (L) CALCIUM (mg/dL) Date Value 04/11/2019 8.0 (L) THB ART (G/DL) Date Value 01/23/2008 10.4 (L) HGB Date Value 04/11/2019 7.3 g/dL (L) 05/09/2013 13.6 G/DL CL (mmol/L) Date Value 04/11/2019 107 aPTT HCT (%) Date Value 04/11/2019 24.3 (L) 05/09/2013 40.8 BUN Date Value 04/11/2019 22 mg/dL 01/23/2008 7 MG/DL APTT Patient (Seconds) Date Value 04/09/2019 33 CREATININE Date Value 04/11/2019 1.18 mg/dL (H) 01/23/2008 0.70 MG/DL IMAGING- Hospital Encounter on 04/09/19 CT ABDOMEN PELVIS W CONTRAST Narrative CT Abdomen and Pelvis with intravenous contrast. CLINICAL HISTORY: Abdominal distention and acute generalized pain. DOSE: Up-to-date CT equipment and radiation dose reduction techniques were employed. CTDIvol: 7.59 mGy. DLP: 431 mGy-cm. TECHNIQUE : Contiguous axial imaging from the level of the lung bases through the pubic symphysis were performed after the uncomplicated administration of Omnipaque contrast material. Coronal and sagittal reconstructions were obtained. Auto mA and/or iterative reconstruction were used to reduce radiation dose. FINDINGS: Lower lungs: Minimal fibrosis in the right lower lung. No pleural effusion or pericardial effusion. Short sliding hiatal hernia. Liver, Gallbladder and Spleen: Liver is approximately 12.4 cm and spleen is moderately enlarged, measuring 17 x 7.2 cm. Mild hepatic steatosis is noted. Evidence of portal hypertension noted with dilated portal venous system and mild varus is in the fundus of the stomach and lower esophagus. S/P cholecystectomy. Biliary ducts and the pancreatic duct appear of normal size. Peritoneum: No free air. No lymphadenopathy. Moderate volume ascites noted with free fluid surrounding the liver, spleen, bowel loops, in the pelvis as well as surrounding the umbilicus. Pancreas and Adrenals: Unremarkable pancreas and adrenal glands. Kidneys and Ureters: No visible calculi in the renal collecting systems. No hydroureter or hydronephrosis. Vessels: Unremarkable. Retroperitoneum: No abnormal fluid. Slightly enlarged lymph nodes are seen in the left side of the retroperitoneum adjacent to the aorta slightly below the level of left renal vein, unchanged when compared with MRI study of September 2018. Bowel: Mild constipation. Bladder and Reproductive Organs: Thickened bladder wylie could be due to incomplete luminal distention. Uterus is bulky without any other abnormalities. No worrisome adnexal pathology. Bones: Metallic hardware in right femur. Old fracture of upper T7 which has lost more than 50% of its height. Minimal old fracture deformity also noted in T11. Soft tissues: Congested. CONCLUSION: 1. Moderate volume ascites, likely secondary to chronic liver disease with portal hypertension causing splenomegaly as well as a small varices in the stomach and lower esophagus. Portal vein is patent. There is slight increase in the volume of ascites when compared with MRI study of September 2018. 2. S/P cholecystectomy. XR CHEST 2 VW Narrative HISTORY: Chest pain with SOB. TECHNIQUE: 2 PA and one lateral views of the chest are obtained. Comparison made with 06/14/2017 study. FINDINGS: Poor respiratory effort as shown by the patient in all views, likely the cause of accentuation of bronchovascular markings in the lower lungs. No acute pneumonia. No pneumothorax or pleural effusion or pulmonary congestion and cardiomegaly detected. Cholecystectomy clips are seen in the right upper abdomen. CONCLUSIONS: No definite signs of acute cardiopulmonary disease. ASSESSMENT/PLAN Rosanna York is a 43 year old female with PMH as listed above, admitted to the hospital with: Dysphagia and odynophagia, ?related to worsened esophageal varices - patient currently is having difficulty eating/drinking because food does not pass through - d/w Dr. Basurto/GI, who recommended to transfer the patient to the [facility]. Patient may need banding again - d/w Dr. Vance, who kindly accepted the patient Acute decompensated cirrhosis, presumed alcohol Previous work up in September 2018 in [place] negative for hepatitis. S/p EGD at that time with varicess/p banding. Recurrent ascites. S/p IR paracentesis on 04/08/2019, 3.8 L removed, no evidence of SBP. Not compliant with lasix, aldactone, propanolol - holding for now due to hypotension Started on midodrine 5 mg BID due to low normal blood pressure Hepatic encephalopathy, level 1 Increased po lactulose Chronic melena Received 1u pRBC for Hb 6.9 No evidence of further bleed GI on board Cipro day 05/09 for abx prophylaxis for possible GI bleeding Debility PT eval Type 2 DM uncontrolled with hyperglycemia On long acting insulin 42 units in AM. A1c 11.9 Hx of recent ortho surgeries, fractures, charcot foot, osteomyelitis in the past. Depression on prozac Diabetic neuropathy on gabapentin Thrombocytopenia UTI. F/u urine culture. Will be on cipro for 7 days for variceal abx prophylaxis Former smoker Prophylaxis: DVT- SCD Stress Ulcer: pantoprazole Code Status: Full Disposition: transfer to [facility] for GI eval oi Kam MD - 04/10/2019 2:10 PM CST [facility] Hospitalist Progress Note SUBJECTIVE: Feels tired today. CURRENT MEDICATIONS - reviewed. Current Facility-Administered Medications Medication Dose Route Frequency Last Rate Last Dose lactulose (CEPHULAC) solution 30 mL 30 mL Oral TID 30 mL at 04/10/19 1055 ciprofloxacin in 5 % dextrose (CIPRO) piggyback 400 mg 400 mg IV Piggyback Q12H ABX 400 mg at04/10/19 0517 docusate (COLACE) capsule 100 mg 100 mg Oral DAILY 100 mg at 04/10/19 0821 FLUoxetine (PROZAC) capsule 20 mg 20 mg Oral DAILY 20 mg at 04/10/19 0821 gabapentin (NEURONTIN) tablet 600 mg 600 mg Oral BID 600 mg at 04/10/19 0821 HYDROcodone-acetaminophen (NORCO 5) 5-325 mg tablet 1 tablet 1 tablet Oral Q6HPRN 1 tablet at04/09/192016 insulin glargine (LANTUS U-100) injection 42 Units 42 Units Subcutaneous QHS 42 Units at 04/09/192002 lactobacillus acidophilus (ACIDOPHILLUS) 25 million cell -100 mg captab 1 tablet 1 tablet Oral BID 1 tablet at 04/10/19 08 midodrine (PROAMATINE) tablet 5 mg 5 mg Oral BID 5 mg at 04/10/19 08 ondansetron (ZOFRAN (PF)) injection 4 mg 4 mg Slow IV Push Q6HPRN 4 mg at 04/09/191999 pantoprazole (PROTONIX) 40 mg in NaCl 0.9% (NS) 100 mL MINI-BAG 40 mg IV Piggyback Q12H 40 mgat 04/10/19 0823 Sliding Scale Insulin - Aspart (NOVOLOG) + Fsbg Testing Subcutaneous TID MEALS+HS 5 Units at04/10/19 1130 PHYSICAL EXAM: BP 90/61 | Pulse 56 | Temp 36.6 C (97.8 F) (Oral) | Resp 16 | Ht 5' 5" ( 1.651 m) | Wt 167 lb 8 oz (76 kg) | SpO2 98% | BMI 27.87 kg/m General: No respiratory distress Abdomen: Soft, NTND Skin: No rash or lesions, normal turgot Neuro: AAOx3, no focal deficits Psych: Normal affect LABS/IMAGING - reviewed, pertinent results as below: CBC BMP PT/INR WBC x10^3 (/uL) Date Value 05/09/2013 7.9 WBC (10*3/L) Date Value 04/10/2019 4.20 (L) NA (mmol/L) Date Value 04/10/2019 136 No results found for: PT RBC x10^6 (/uL) Date Value 05/09/2013 4.79 RBC (10*6/L) Date Value 04/10/2019 2.65 (L) K (mmol/L) Date Value 04/10/2019 4.0 INR (no units) Date Value 04/09/2019 1.1 PLT x10^3 (/uL) Date Value 05/09/2013 154 (L) PLT (10*3/L) Date Value 04/10/2019 76 (L) CALCIUM (mg/dL) Date Value 04/10/2019 8.0 (L) THB ART (G/DL) Date Value 01/23/2008 10.4 (L) HGB Date Value 04/10/2019 7.6 g/dL (L) 05/09/2013 13.6 G/DL CL (mmol/L) Date Value 04/10/2019 105 aPTT HCT (%) Date Value 04/10/2019 23.7 (L) 05/09/2013 40.8 BUN Date Value 04/10/2019 23 mg/dL 01/23/2008 7 MG/DL APTT Patient (Seconds) Date Value 04/09/2019 33 CREATININE Date Value 04/10/2019 0.90 mg/dL 01/23/2008 0.70 MG/DL IMAGING- Hospital Encounter on 04/09/19 CT ABDOMEN PELVIS W CONTRAST Narrative CT Abdomen and Pelvis with intravenous contrast. CLINICAL HISTORY: Abdominal distention and acute generalized pain. DOSE: Up-to-date CT equipment and radiation dose reduction techniques were employed. CTDIvol: 7.59 mGy. DLP: 431 mGy-cm. TECHNIQUE : Contiguous axial imaging from the level of the lung bases through the pubic symphysis were performed after the uncomplicated administration of Omnipaque contrast material. Coronal and sagittal reconstructions were obtained. Auto mA and/or iterative reconstruction were used to reduce radiation dose. FINDINGS: Lower lungs: Minimal fibrosis in the right lower lung. No pleural effusion or pericardial effusion. Short sliding hiatal hernia. Liver, Gallbladder and Spleen: Liver is approximately 12.4 cm and spleen is moderately enlarged, measuring 17 x 7.2 cm. Mild hepatic steatosis is noted. Evidence of portal hypertension noted with dilated portal venous system and mild varus is in the fundus of the stomach and lower esophagus. S/P cholecystectomy. Biliary ducts and the pancreatic duct appear of normal size. Peritoneum: No free air. No lymphadenopathy. Moderate volume ascites noted with free fluid surrounding the liver, spleen, bowel loops, in the pelvis as well as surrounding the umbilicus. Pancreas and Adrenals: Unremarkable pancreas and adrenal glands. Kidneys and Ureters: No visible calculi in the renal collecting systems. No hydroureter or hydronephrosis. Vessels: Unremarkable. Retroperitoneum: No abnormal fluid. Slightly enlarged lymph nodes are seen in the left side of the retroperitoneum adjacent to the aorta slightly below the level of left renal vein, unchanged when compared with MRI study of September 2018. Bowel: Mild constipation. Bladder and Reproductive Organs: Thickened bladder wylie could be due to incomplete luminal distention. Uterus is bulky without any other abnormalities. No worrisome adnexal pathology. Bones: Metallic hardware in right femur. Old fracture of upper T7 which has lost more than 50% of its height. Minimal old fracture deformity also noted in T11. Soft tissues: Congested. CONCLUSION: 1. Moderate volume ascites, likely secondary to chronic liver disease with portal hypertension causing splenomegaly as well as a small varices in the stomach and lower esophagus. Portal vein is patent. There is slight increase in the volume of ascites when compared with MRI study of September 2018. 2. S/P cholecystectomy. XR CHEST 2 VW Narrative HISTORY: Chest pain with SOB. TECHNIQUE: 2 PA and one lateral views of the chest are obtained. Comparison made with 06/14/2017 study. FINDINGS: Poor respiratory effort as shown by the patient in all views, likely the cause of accentuation of bronchovascular markings in the lower lungs. No acute pneumonia. No pneumothorax or pleural effusion or pulmonary congestion and cardiomegaly detected. Cholecystectomy clips are seen in the right upper abdomen. CONCLUSIONS: No definite signs of acute cardiopulmonary disease. ASSESSMENT/PLAN Rosanna York is a 43 year old female with PMH as listed above, admitted to the hospital with: Acute decompensated cirrhosis, presumed alcohol Previous work up in September 2018 in [place] negative for hepatitis. S/p EGD at that time with varicess/p banding. Recurrent ascites. S/p IR paracentesis on 04/08/2019, 3.8 L removed, no evidence of SBP. Not compliant with lasix, aldactone, propanolol - holding for now due to hypotension Started on midodrine 5 mg BID due to low normal blood pressure, will need script on discharge I believe Hepatic encephalopathy, level 1 Increased po lactulose Chronic melena Received 1u pRBC for Hb 6.9 No evidence of further bleed GI consult Dr. Basurto, informed Cipro for 7 days for abx prophylaxis for possible GI bleeding Type 2 DM uncontrolled with hyperglycemia On long acting insulin 42 units in AM. A1c 11.9 Hx of recent ortho surgeries, fractures, charcot foot, osteomyelitis in the past. Depression on prozac Diabetic neuropathy on gabapentin Thrombocytopenia UTI. F/u urine culture. Will be on cipro for 7 days for variceal abx prophylaxis Former smoker Counseled on smoking cessation Prophylaxis: DVT- SCD Stress Ulcer: pantoprazole Code Status: Full Disposition: Home Toi Kam MD Mike Vargas RN - 04/10/2019 9:02 AM RESIDENTIAL LEASING MANAGER Care Management Social Functional Assessment Patient Name: Rosanna York Age: [age] year old Sex: female Patient's Previous Admission Date at [facility]: 09/28/2018 Current diagnosis and co-morbidities: anemia; ascites; uti Readmission Questions: Was patient discharged from any acute care hospital within the last 30 days: No Social Functional Assessment: Primary language spoken/preferred: Angolan Mental Status: Alert & Oriented to Person,Place & Time Information given by: Self Patient's support system: Spouse Name and number of support system: Karl York spouse [phone] Brody York son [phone] Primary Senior Graduate Advisor: Self MPOA: Same as support system Living Arrangement: Home Persons living in home: Same as support system Barriers to returning home: None Baseline functional status- ambulation: Independent Functional status-baseline personal care: Independent Baseline functional status- driving: Independent Baseline functional status- grocery shopping: Independent Functional status-baseline housekeeping: Independent Functional status-baseline meal prep: Independent Current functional status same as prior: Yes Do you have a PCP?: Yes Name of PCP: [facility] Agency: No Provider Services: No DME Company: No Equipment: Rollator;Walker Hemodialysis: No Community resources utilized: None Funding Resources: Self Pay Prescription coverage plan: Self Pay Pharmacy where meds are filled: Other Other pharmacy: [facility] Anticipated services prior to disharge: Continue Medical Eval Expected mode of discharge transportation: Same as support system Additional info required for discharge planning: Pending medical evaluation Recommended discharge plan: Home SFA Complete: Social Functional Assessment complete: Yes Alcohol Use Screening (AUDIT-C) How often do you have a drink containing alcohol?: Never SCORE: 0 Role of Care Management explained. Yes Any issues or concerns with obtaining/affording your medications at home: no. Are you or your support system able to lease picker medications at discharge: yes. Describe: Mike Fernandez RN, BSN [facility] ADC Bench Assembly Inspector O [phone] documented in this encounter Plan of Treatment Name Type Priority Associated Date/Time Diagnoses Transfuse Packed Transfusion Routine 04/09/2019 11:51 RBC (in units): 1 Administration PM RESIDENTIAL LEASING MANAGER Units~As soon as possible; Infuse Each Unit Over: 2 Hours Transfuse Packed Transfusion Routine 04/09/2019 11:51 RBC (in units) Administration PM RESIDENTIAL LEASING MANAGER Name Type Priority Associated Order Schedule Diagnoses IR PARACENTESIS IMAGING ADEEL Ascites of liver ONCE for 1 Occurrences starting 04/09/2019 until 04/09/2019 CYTO ABDOMINAL FLUID LAB Routine ONCE for 1 Occurrences starting 04/09/2019 until 04/09/2019 EKG-12 LEAD ROUTINE HEART STATION Routine ONCE for 1 Occurrences starting 04/13/2019 until 04/13/2019 BASIC METABOLIC PANEL LAB Routine EVERY SUNDAY, (NA, K, CL, CO2, SUNDAY AND GLUCOSE, BUN, SUNDAY AT 0400 for CREATININE, CA) 3 Occurrences starting 04/18/2019 until 04/23/2019 PROFILE / HEMOGRAM LAB Routine EVERY SUNDAY, SUNDAY AND SUNDAY AT 0400 for 3 Occurrences starting 04/18/2019 until 04/23/2019 SIX MINUTE WALK PULMONARY FUNCTION Routine ONCE for 1 LAB Occurrences starting 04/17/2019 until 04/17/2019 Health Maintenance Due Date Last Done Comments PNEUMOCOCCAL 0-64 YEARS COMBINED 1980 SERIES (1 of 1 - PPSV23) EYE EXAM 1984 URINE MICROALBUMIN 1984 DTaP,Tdap,and Td Vaccines (1 - 1985 04/02/2008 Tdap) FOOT EXAM 1992 Breast Cancer Screening 2014 (MAMMOGRAM) PAP SMEAR 05/09/2016 05/09/2013, 10/29/2007 INFLUENZA VACCINE (#1) 2018 LDL-C 09/23/2019 09/22/2018 HgA1C 10/08/2019 04/09/2019, 09/22/2018, 11/05/2007 CREATININE (SERUM) 04/16/2020 04/16/2019, 04/14/2019, 04/13/2019, Additional history exists documented as of this encounter Implants Implanted Type Area Analytical Research Program Manager Device Shelf Model / Identifier Expiration Serial / Date Lot Implant Orthopedic Endcap NAIL Right: [employer] 10/30/[id number] / Implanted: Qty: 2 on 12/03/2018 by Ric Sal MD at [facility] AT [facility] NA / [id number] Nail Intramedullary 10mm Elle 22cml NAIL Right: [employer] 07/30/[id number] / Implanted: Qty: 1 on 12/03/2018 by Ric Sal MD at [facility] NA / [id number] Screw Bone Compression 5mm Elle 85mml SCREW Right: [employer] [id number] / Implanted: Qty: 1 on 12/03/2018 by Ric Sal MD at [facility] NA / [id number] Screw Bone Compression 5mm Elle 30mml SCREW Right: [employer] 2020-02-5030 / Implanted: Qty: 1 on 12/03/2018 by Ric Sal MD at [facility] NA / [id number] Screw Bone Compression 5mm Elle 30mml SCREW Right: [employer] [id number] / Implanted: Qty: 1 on 12/03/2018 by Ric Sal MD at [facility] NA / [id number] Rode Right: Leg Screw-03/08/2018 Right: Implanted: 03/08/2018 (Quantity not on file) Knee Foam Pack, Steele Vitoss Bb Trauma 10cc #[id number] - Sna Right: Sheba 05/30/2020 / Implanted: Qty: 1 on 12/03/2018 by Ric Sal MD at [facility] AT [facility] NA / [id number] documented as of this encounter Procedures Procedure Name Priority Date/Time Associated Comments Diagnosis POCT GLUCOSE (AUTOMATED) Routine 04/17/2019 Results for 12:43 PM RESIDENTIAL LEASING MANAGER this procedure are in the results section. POCT GLUCOSE (AUTOMATED) Routine 04/17/2019 Results for 7:44 AM RESIDENTIAL LEASING MANAGER this procedure are in the results section. PROFILE / HEMOGRAM Routine 04/17/2019 Results for 5:28 AM RESIDENTIAL LEASING MANAGER this procedure are in the results section. BASIC METABOLIC PANEL (NA, Routine 04/17/2019 Results for K, CL, CO2, GLUCOSE, BUN, 5:28 AM RESIDENTIAL LEASING MANAGER this procedure CREATININE, CA) are in the results section. POCT GLUCOSE (AUTOMATED) Routine 04/16/2019 Results for 10:10 PM RESIDENTIAL LEASING MANAGER this procedure are in the results section. POCT GLUCOSE (AUTOMATED) Routine 04/16/2019 Results for 6:05 PM RESIDENTIAL LEASING MANAGER this procedure are in the results section. POCT GLUCOSE (AUTOMATED) Routine 04/16/2019 Results for 12:30 PM RESIDENTIAL LEASING MANAGER this procedure are in the results section. POCT GLUCOSE (AUTOMATED) Routine 04/16/2019 Results for 8:53 AM RESIDENTIAL LEASING MANAGER this procedure are in the results section. PROFILE / HEMOGRAM Routine 04/16/2019 Results for 5:23 AM RESIDENTIAL LEASING MANAGER this procedure are in the results section. BASIC METABOLIC PANEL (NA, Routine 04/16/2019 Results for K, CL, CO2, GLUCOSE, BUN, 5:23 AM RESIDENTIAL LEASING MANAGER this procedure CREATININE, CA) are in the results section. POCT GLUCOSE (AUTOMATED) Routine 04/15/2019 Results for 9:55 PM RESIDENTIAL LEASING MANAGER this procedure are in the results section. POCT GLUCOSE (AUTOMATED) Routine 04/15/2019 Results for 6:38 PM RESIDENTIAL LEASING MANAGER this procedure are in the results section. XR CHEST 2 VW Routine 04/15/2019 SOB (shortness of Results for 5:01 PM RESIDENTIAL LEASING MANAGER breath) this procedure Hypoxia are in the results section. POCT GLUCOSE (AUTOMATED) Routine 04/15/2019 Results for 12:56 PM RESIDENTIAL LEASING MANAGER this procedure are in the results section. POCT GLUCOSE (AUTOMATED) Routine 04/15/2019 Results for 9:24 AM RESIDENTIAL LEASING MANAGER this procedure are in the results section. PROFILE / HEMOGRAM Routine 04/15/2019 Results for 5:40 AM RESIDENTIAL LEASING MANAGER this procedure are in the results section. POCT GLUCOSE (AUTOMATED) Routine 04/14/2019 Results for 6:23 PM RESIDENTIAL LEASING MANAGER this procedure are in the results section. FL MODIFIED BARIUM SWALLOW Routine 04/14/2019 Globus sensation Results for 4:20 PM RESIDENTIAL LEASING MANAGER this procedure are in the results section. FL BARIUM SWALLOW Routine 04/14/2019 Globus sensation Results for ESOPHAGUS 4:20 PM RESIDENTIAL LEASING MANAGER this procedure are in the results section. POCT GLUCOSE (AUTOMATED) Routine 04/14/2019 Results for 1:12 PM RESIDENTIAL LEASING MANAGER this procedure are in the results section. POCT GLUCOSE (AUTOMATED) Routine 04/14/2019 Results for 8:25 AM RESIDENTIAL LEASING MANAGER this procedure are in the results section. EXTRA TUBE LAV Routine 04/14/2019 4:50 AM RESIDENTIAL LEASING MANAGER HB ABO GROUPING ADEEL 04/14/2019 Results for 4:50 AM RESIDENTIAL LEASING MANAGER this procedure are in the results section. PROFILE / HEMOGRAM STAT 04/14/2019 Results for 4:50 AM RESIDENTIAL LEASING MANAGER this procedure are in the results section. PROFILE / HEMOGRAM Routine 04/14/2019 Results for 3:45 AM RESIDENTIAL LEASING MANAGER this procedure are in the results section. COMP. METABOLIC PANEL Routine 04/14/2019 Results for ([id number]) 3:45 AM RESIDENTIAL LEASING MANAGER this procedure are in the results section. POCT GLUCOSE (AUTOMATED) Routine 04/13/2019 Results for 9:04 PM RESIDENTIAL LEASING MANAGER this procedure are in the results section. POCT GLUCOSE (AUTOMATED) Routine 04/13/2019 Results for 9:25 AM RESIDENTIAL LEASING MANAGER this procedure are in the results section. XR CHEST 1 VW STAT 04/13/2019 SOB (shortness of Results for 3:52 AM RESIDENTIAL LEASING MANAGER breath) this procedure are in the results section. PROFILE / HEMOGRAM Routine 04/13/2019 Results for 3:51 AM RESIDENTIAL LEASING MANAGER this procedure are in the results section. COMP. METABOLIC PANEL Routine 04/13/2019 Results for ([id number]) 3:51 AM RESIDENTIAL LEASING MANAGER this procedure are in the results section. TROPONIN I Routine 04/13/2019 Results for 3:51 AM RESIDENTIAL LEASING MANAGER this procedure are in the results section. PROCALCITONIN Routine 04/13/2019 Results for 3:50 AM RESIDENTIAL LEASING MANAGER this procedure are in the results section. POCT GLUCOSE (AUTOMATED) Routine 04/13/2019 Results for 3:45 AM RESIDENTIAL LEASING MANAGER this procedure are in the results section. EKG-12 LEAD Routine 04/13/2019 3:20 AM RESIDENTIAL LEASING MANAGER GALV ONLY - INFLUENZA A B Routine 04/13/2019 Results for RSV PCR 3:16 AM RESIDENTIAL LEASING MANAGER this procedure are in the results section. POCT GLUCOSE (AUTOMATED) Routine 04/12/2019 Results for 8:42 PM RESIDENTIAL LEASING MANAGER this procedure are in the results section. POCT GLUCOSE (AUTOMATED) Routine 04/12/2019 Results for 3:52 PM RESIDENTIAL LEASING MANAGER this procedure are in the results section. OCCULT (GUAIAC) BLOOD ADEEL 04/12/2019 Results for 12:49 PM RESIDENTIAL LEASING MANAGER this procedure are in the results section. POCT GLUCOSE (AUTOMATED) Routine 04/12/2019 Results for 11:20 AM RESIDENTIAL LEASING MANAGER this procedure are in the results section. POCT GLUCOSE (AUTOMATED) Routine 04/12/2019 Results for 7:56 AM RESIDENTIAL LEASING MANAGER this procedure are in the results section. PROTHROMBIN TIME / INR Routine 04/12/2019 Results for 4:29 AM RESIDENTIAL LEASING MANAGER this procedure are in the results section. COMP. METABOLIC PANEL Routine 04/12/2019 Results for ([id number]) 4:29 AM RESIDENTIAL LEASING MANAGER this procedure are in the results section. PROFILE / HEMOGRAM Routine 04/12/2019 Results for 4:25 AM RESIDENTIAL LEASING MANAGER this procedure are in the results section. POCT GLUCOSE (AUTOMATED) Routine 04/11/2019 Results for 8:24 PM RESIDENTIAL LEASING MANAGER this procedure are in the results section. POCT GLUCOSE (AUTOMATED) Routine 04/11/2019 Results for 4:12 PM RESIDENTIAL LEASING MANAGER this procedure are in the results section. POCT GLUCOSE (AUTOMATED) Routine 04/11/2019 Results for 11:14 AM RESIDENTIAL LEASING MANAGER this procedure are in the results section. HIV 1/2 AG-AB WITH REFLEX Add-on 04/11/2019 Results for 4:11 AM RESIDENTIAL LEASING MANAGER this procedure are in the results section. CBC WITH DIFFERENTIAL Routine 04/11/2019 Results for 4:11 AM RESIDENTIAL LEASING MANAGER this procedure are in the results section. CBC WITH DIFFERENTIAL Routine 04/11/2019 Results for 4:11 AM RESIDENTIAL LEASING MANAGER this procedure are in the results section. COMP. METABOLIC PANEL Routine 04/11/2019 Results for ([id number]) 4:11 AM RESIDENTIAL LEASING MANAGER this procedure are in the results section. URIC ACID Add-on 04/11/2019 Results for 4:11 AM RESIDENTIAL LEASING MANAGER this procedure are in the results section. GAMMA GLUTAMYLTRANSFERASE Add-on 04/11/2019 Results for 4:11 AM RESIDENTIAL LEASING MANAGER this procedure are in the results section. POCT GLUCOSE (AUTOMATED) Routine 04/10/2019 Results for 8:01 PM RESIDENTIAL LEASING MANAGER this procedure are in the results section. POCT GLUCOSE (AUTOMATED) Routine 04/10/2019 Results for 3:28 PM RESIDENTIAL LEASING MANAGER this procedure are in the results section. POCT GLUCOSE (AUTOMATED) Routine 04/10/2019 Results for 11:16 AM RESIDENTIAL LEASING MANAGER this procedure are in the results section. LACTIC ACID WHOLE BLOOD STAT 04/10/2019 Results for 10:13 AM RESIDENTIAL LEASING MANAGER this procedure are in the results section. HEMOGLOBIN Routine 04/10/2019 Results for 10:13 AM RESIDENTIAL LEASING MANAGER this procedure are in the results section. TROPONIN I Routine 04/10/2019 Results for 10:13 AM RESIDENTIAL LEASING MANAGER this procedure are in the results section. POCT GLUCOSE (AUTOMATED) Routine 04/10/2019 Results for 7:41 AM RESIDENTIAL LEASING MANAGER this procedure are in the results section. CBC WITH DIFFERENTIAL Routine 04/10/2019 Results for 5:21 AM RESIDENTIAL LEASING MANAGER this procedure are in the results section. N-TERMINAL PRO-BNP Routine 04/10/2019 Results for 5:21 AM RESIDENTIAL LEASING MANAGER this procedure are in the results section. CBC WITH DIFFERENTIAL Routine 04/10/2019 Results for 5:21 AM RESIDENTIAL LEASING MANAGER this procedure are in the results section. COMP. METABOLIC PANEL Routine 04/10/2019 Results for ([id number]) 5:21 AM RESIDENTIAL LEASING MANAGER this procedure are in the results section. TROPONIN I Routine 04/10/2019 Results for 5:21 AM RESIDENTIAL LEASING MANAGER this procedure are in the results section. AMMONIA, PLASMA Routine 04/10/2019 Results for 5:21 AM RESIDENTIAL LEASING MANAGER this procedure are in the results section. URINE CULTURE STAT 04/10/2019 Acute lower UTI Results for 2:38 AM RESIDENTIAL LEASING MANAGER this procedure are in the results section. POCT GLUCOSE (AUTOMATED) Routine 04/10/2019 Results for 2:14 AM RESIDENTIAL LEASING MANAGER this procedure are in the results section. IRON PANEL Routine 04/10/2019 Results for 12:25 AM RESIDENTIAL LEASING MANAGER this procedure are in the results section. TROPONIN I Routine 04/10/2019 Results for 12:25 AM RESIDENTIAL LEASING MANAGER this procedure are in the results section. PREPARE PACKED RBC Routine 04/09/2019 Results for 8:33 PM RESIDENTIAL LEASING MANAGER this procedure are in the results section. POCT GLUCOSE (AUTOMATED) Routine 04/09/2019 Results for 7:37 PM RESIDENTIAL LEASING MANAGER this procedure are in the results section. POCT GLUCOSE (AUTOMATED) Routine 04/09/2019 Results for 5:29 PM RESIDENTIAL LEASING MANAGER this procedure are in the results section. TROPONIN I Routine 04/09/2019 Results for 5:14 PM RESIDENTIAL LEASING MANAGER this procedure are in the results section. MAGNESIUM ADEEL Add-On 04/09/2019 Results for 5:14 PM RESIDENTIAL LEASING MANAGER this procedure are in the results section. VITAMIN B12, LEVEL Routine 04/09/2019 Results for 5:12 PM RESIDENTIAL LEASING MANAGER this procedure are in the results section. CORTISOL PM SERUM Add-on 04/09/2019 Results for 5:12 PM RESIDENTIAL LEASING MANAGER this procedure are in the results section. BODY FLUID DIRECT COUNT STAT 04/09/2019 Results for 4:16 PM RESIDENTIAL LEASING MANAGER this procedure are in the results section. BODY FLUID MANUAL DIFF STAT 04/09/2019 Results for 4:16 PM RESIDENTIAL LEASING MANAGER this procedure are in the results section. BODY FLUID STAT 04/09/2019 Results for CULTURE(AEROBIC/ANAEROBIC) 4:16 PM RESIDENTIAL LEASING MANAGER this procedure are in the results section. BODY FLUID DIRECT COUNT STAT 04/09/2019 Results for 4:16 PM RESIDENTIAL LEASING MANAGER this procedure are in the results section. T.PROTEIN BODY FLUID STAT 04/09/2019 Results for 4:16 PM RESIDENTIAL LEASING MANAGER this procedure are in the results section. ALBUMIN BODY FLUID STAT 04/09/2019 Results for 4:16 PM RESIDENTIAL LEASING MANAGER this procedure are in the results section. EKG-12 LEAD Routine 04/09/2019 1:33 PM RESIDENTIAL LEASING MANAGER EKG-12 LEAD STAT 04/09/2019 1:28 PM RESIDENTIAL LEASING MANAGER HB ABO GROUPING STAT 04/09/2019 Generalized Results for 1:07 PM RESIDENTIAL LEASING MANAGER abdominal pain this procedure Chest pain in are in the adult results Right leg pain section. CT ABDOMEN PELVIS W STAT 04/09/2019 Generalized Results for CONTRAST 12:04 PM RESIDENTIAL LEASING MANAGER abdominal pain this procedure Chest pain in are in the adult results Right leg pain section. XR CHEST 2 VW STAT 04/09/2019 Generalized Results for 11:42 AM RESIDENTIAL LEASING MANAGER abdominal pain this procedure Chest pain in are in the adult results Right leg pain section. ACTIVATED PARTIAL THRMPLAS STAT 04/09/2019 Generalized Results for CRISTINA 11:24 AM RESIDENTIAL LEASING MANAGER abdominal pain this procedure Chest pain in are in the adult results Right leg pain section. PROTHROMBIN TIME / INR STAT 04/09/2019 Generalized Results for 11:24 AM RESIDENTIAL LEASING MANAGER abdominal pain this procedure Chest pain in are in the adult results Right leg pain section. POCT TEST ADEEL 04/09/2019 Generalized Results for 11:04 AM RESIDENTIAL LEASING MANAGER abdominal pain this procedure are in the results section. CBC WITH DIFFERENTIAL STAT 04/09/2019 Generalized Results for 11:03 AM RESIDENTIAL LEASING MANAGER abdominal pain this procedure are in the results section. N-TERMINAL PRO-BNP Add-on 04/09/2019 Results for 11:03 AM RESIDENTIAL LEASING MANAGER this procedure are in the results section. URINALYSIS STAT 04/09/2019 Generalized Results for 11:03 AM RESIDENTIAL LEASING MANAGER abdominal pain this procedure are in the results section. GLYCOSYLATED HEMOGLOBIN Add-on 04/09/2019 Results for (A1C) 11:03 AM RESIDENTIAL LEASING MANAGER this procedure are in the results section. CBC WITH DIFFERENTIAL STAT 04/09/2019 Generalized Results for 11:03 AM RESIDENTIAL LEASING MANAGER abdominal pain this procedure are in the results section. COMP. METABOLIC PANEL STAT 04/09/2019 Generalized Results for ([id number]) 11:03 AM RESIDENTIAL LEASING MANAGER abdominal pain this procedure are in the results section. THYROID STIMULATING Add-on 04/09/2019 Results for HORMONE 11:03 AM RESIDENTIAL LEASING MANAGER this procedure are in the results section. TROPONIN I STAT Add-On 04/09/2019 Chest pain in Results for 11:03 AM RESIDENTIAL LEASING MANAGER adult this procedure are in the results section. FERRITIN SERUM Add-on 04/09/2019 Results for 11:03 AM RESIDENTIAL LEASING MANAGER this procedure are in the results section. MAGNESIUM Add-on 04/09/2019 Results for 11:03 AM RESIDENTIAL LEASING MANAGER this procedure are in the results section. LIPASE STAT 04/09/2019 Generalized Results for 11:03 AM RESIDENTIAL LEASING MANAGER abdominal pain this procedure are in the results section. PHOSPHORUS Add-on 04/09/2019 Results for 11:03 AM RESIDENTIAL LEASING MANAGER this procedure are in the results section. POCT GLUCOSE (AUTOMATED) Routine 04/09/2019 Results for 10:58 AM RESIDENTIAL LEASING MANAGER this procedure are in the results section. CONSENT/REFUSAL FOR Routine 04/09/2019 DIAGNOSIS AND TREATMENT 10:22 AM RESIDENTIAL LEASING MANAGER documented in this encounter Results POCT GLUCOSE (AUTOMATED) (04/17/2019 12:43 PM RESIDENTIAL LEASING MANAGER) POCT GLU 188 (H) 70 - 110 mg/dL [facility] Specimen Blood Performing Organization Address City/[facility]/Zipcode Phone Number [facility] CLIA: [id number], [address] [place] [address] [phone] [facility] POCT GLUCOSE (AUTOMATED) (04/17/2019 7:44 AM RESIDENTIAL LEASING MANAGER) POCT GLU 207 (H) 70 - 110 mg/dL [facility] Specimen Blood Performing Organization Address City/[facility] Phone Number [facility] CLIA: [id number], [address] [place], [place] [address] [facility] BASIC METABOLIC PANEL (NA, K, CL, CO2, GLUCOSE, BUN, CREATININE, CA) (2019 5:28 AM RESIDENTIAL LEASING MANAGER) NA 140 135 - 145 [facility] mmol/L SERVICES K 3.9 3.5 - 5.0 [facility] mmol/L SERVICES CL 109 (H) 98 - 108 mmol/L [facility] SERVICES CO2 TOTAL 21 (L) 23 - 31 mmol/L [facility] SERVICES AGAP 10 2 - 16 [facility] SERVICES BUN 9 7 - 23 mg/dL [facility] SERVICES GLUCOSE 198 (H) 70 - 110 mg/dL [facility] SERVICES CREATININE 0.90 0.50 - 1.04 [facility] mg/dL SERVICES CALCIUM 8.3 (L) 8.6 - 10.6 [facility] mg/dL SERVICES eGFR Calculation 68.0 mL/min/1.73m2 [facility] (Non- SERVICES Citizen Of [place]) eGFR Calculation 82.4 mL/min/1.73m2 [facility] () SERVICES Specimen Blood - HAND, RIGHT Narrative Performed At Association of Glomerular Filtration Rate (GFR) and Staging [facility] SERVICES of Kidney Disease* + + + + | GFR (mL/min/1.73 m2) | With Kidney Damage | Without Kidney Damage + + + + | >90 | Stage one | Normal + + + + | 60-89 | Stage two | Decreased GFR + + + + | 30-59 | Stage three | Stage three + + + + | 15-29 | Stage four | Stage four + + + + | <15 (or dialysis) | Stage five | Stage five + + + + *Each stage assumes the associated GFR level has been in effect for at least three months. Stages 1 to 5, with or without kidney disease, indicate chronic kidney disease. Notes: Determination of stages one and two (with eGFR >59mL/min/1.73 m2) requires estimation of kidney damage for at least three months as defined by structural or functional abnormalities of the kidney, manifested by either: Pathological abnormalities or Markers of kidney damage (including abnormalities in the composition of the blood or urine or abnormalities in imaging tests). Performing Organization Address City/State/Zipcode Phone Number [facility] CLIA: [id number], [address] [place] [address] [facility] PROFILE / HEMOGRAM (04/17/2019 5:28 AM RESIDENTIAL LEASING MANAGER) WBC 6.72 4.30 - 11.10 [facility] 10*3/L SERVICES RBC 2.81 (L) 3.93 - 5.25 [facility] 10*6/L SERVICES HGB 7.8 (L) 11.6 - 15.0 g/dL [facility] SERVICES HCT 26.4 (L) 35.7 - 45.2 % [facility] SERVICES MCH 27.8 25.9 - 32.8 pg [facility] SERVICES MCV 94.0 80.6 - 95.5 fL [facility] SERVICES MCHC 29.5 (L) 31.6 - 35.1 g/dL [facility] SERVICES PLT 100 (L) 166 - 358 10*3/L [facility] SERVICES MPV 10.3 9.5 - 12.9 fL [facility] SERVICES RDW-CV 17.4 (H) 12.0 - 15.5 % [facility] SERVICES RDW-SD 55.8 (H) 39.0 - 49.9 fL [facility] SERVICES NRBC x10^3 <0.01 10*3/L [facility] SERVICES NRBC/100 WBC 0.0 0.0 - 10.0 /100 [facility] WBCs SERVICES IPF % [facility] SERVICES Specimen Blood - HAND, RIGHT Performing Organization Address City/[facility]v Phone Number [facility] CLIA: [id number], [address] [place] [address] [phone] [facility] POCT GLUCOSE (AUTOMATED) (04/16/2019 10:10 PM RESIDENTIAL LEASING MANAGER) POCT GLU 223 (H) 70 - 110 mg/dL [facility] Specimen Blood Performing Organization Address City/[facility] Phone Number [facility] CLIA: [id number], [address] [place] [address] [facility] POCT GLUCOSE (AUTOMATED) (04/16/2019 6:05 PM RESIDENTIAL LEASING MANAGER) POCT GLU 222 (H) 70 - 110 mg/dL [facility] Specimen Blood Performing Organization Address [facility] Phone Number [facility] CLIA: [id number], [address] [place], [place] [address] [facility] POCT GLUCOSE (AUTOMATED) (04/16/2019 12:30 PM RESIDENTIAL LEASING MANAGER) POCT GLU 207 (H) 70 - 110 mg/dL [facility] Specimen Blood Performing Organization Address City/[facility]/Zipcode Phone Number [facility] CLIA: [id number], [address] [place] [phone] [facility] POCT GLUCOSE (AUTOMATED) (04/16/2019 8:53 AM RESIDENTIAL LEASING MANAGER) POCT GLU 98 70 - 110 mg/dL [facility] Specimen Blood Performing Organization Address City/[facility]ode Phone Number [facility] CLIA: [id number], [address] [place] [address] [phone] [facility] BASIC METABOLIC PANEL (NA, K, CL, CO2, GLUCOSE, BUN, CREATININE, CA) (2019 5:23 AM RESIDENTIAL LEASING MANAGER) NA 138 135 - 145 [facility] mmol/L SERVICES K 3.6 3.5 - 5.0 [facility] mmol/L SERVICES CL 108 98 - 108 mmol/L [facility] SERVICES CO2 TOTAL 23 23 - 31 mmol/L [facility] SERVICES AGAP 7 2 - 16 [facility] SERVICES BUN 10 7 - 23 mg/dL [facility] SERVICES GLUCOSE 91 70 - 110 mg/dL [facility] SERVICES CREATININE 0.97 0.50 - 1.04 [facility] mg/dL SERVICES CALCIUM 8.0 (L) 8.6 - 10.6 [facility] mg/dL SERVICES eGFR Calculation 62.4 mL/min/1.73m2 [facility] (Non- SERVICES Citizen [place]) eGFR Calculation 75.6 mL/min/1.73m2 [facility] () SERVICES Specimen Blood - HAND, RIGHT Narrative Performed At Association of Glomerular Filtration Rate (GFR) and Staging [facility] of Kidney Disease* + + + + | GFR (mL/min/1.73 m2) | With Kidney Damage | Without Kidney Damage + + + + | >90 | Stage one | Normal + + + + | 60-89 | Stage two | Decreased GFR + + + + | 30-59 | Stage three | Stage three + + + + | 15-29 | Stage four | Stage four + + + + | <15 (or dialysis) | Stage five | Stage five + + + + *Each stage assumes the associated GFR level has been in effect for at least three months. Stages 1 to 5, with or without kidney disease, indicate chronic kidney disease. Notes: Determination of stages one and two (with eGFR >59mL/min/1.73 m2) requires estimation of kidney damage for at least three months as defined by structural or functional abnormalities of the kidney, manifested by either: Pathological abnormalities or Markers of kidney damage (including abnormalities in the composition of the blood or urine or abnormalities in imaging tests). Performing Organization Address City/State/Zipcode Phone Number [facility] CLIA: [id number], [address] [place] [address] [phone] PROFILE / HEMOGRAM (04/16/2019 5:23 AM RESIDENTIAL LEASING MANAGER) WBC 7.41 4.30 - 11.10 [facility] 10*3/L SERVICES RBC 2.61 (L) 3.93 - 5.25 [facility] 10*6/L SERVICES HGB 7.4 (L) 11.6 - 15.0 [facility] g/dL SERVICES HCT 24.1 (L) 35.7 - 45.2 % [facility] SERVICES MCH 28.4 25.9 - 32.8 pg [facility] SERVICES MCV 92.3 80.6 - 95.5 fL [facility] MCHC 30.7 (L) 31.6 - 35.1 [facility] g/dL SERVICES PLT 112 (L) 166 - 358 [facility] 10*3/L SERVICES MPV 10.5 9.5 - 12.9 fL [facility] SERVICES RDW-CV 16.7 (H) 12.0 - 15.5 % [facility] RDW-SD 54.5 (H) 39.0 - 49.9 fL [facility] SERVICES NRBC x10^3 0.02 10*3/L [facility] SERVICES NRBC/100 WBC 0.3 0.0 - 10.0 [facility] /100 WBCs SERVICES IPF % 4.7Comment: Platelet 1.3 - 7.7 % [facility] count measured by SERVICES fluorescence method. Specimen Blood - HAND, RIGHT Performing Organization Address City/State/Zipcode Phone Number [facility] CLIA: [id number], [address] [place] [address] [phone] [facility] POCT GLUCOSE (AUTOMATED) (04/15/2019 9:55 PM RESIDENTIAL LEASING MANAGER) POCT GLU 252 (H) 70 - 110 mg/dL [facility] Specimen Blood Performing Organization Address City/[facility] Mex[facility]ode Phone Number [facility] CLIA: [id number], [address] [place] [phone] [facility] POCT GLUCOSE (AUTOMATED) (04/15/2019 6:38 PM RESIDENTIAL LEASING MANAGER) POCT GLU 124 (H) 70 - 110 mg/dL [facility] Specimen Blood Performing Organization Address City/[facility] Mex[facility]ode Phone Number [facility] CLIA: [id number], [address] [place] [address] [phone] [facility] XR CHEST 2 VW (04/15/2019 5:01 PM RESIDENTIAL LEASING MANAGER) Specimen Impressions Performed At PACS/VR/DOSE Interval worsening of patchy opacities in the left lung as well as interval development of right suprahilar and right basilar patchy opacity, findings may represent multifocal infection or less likely asymmetric edema. Narrative Performed At PROCEDURE: XR CHEST 2 VW PACS/VR/DOSE CLINICAL INDICATION: Hypoxia COMPARISON: 04/13/2019 FINDINGS: Interval worsening of patchy opacities in the left lung as well as interval development of right suprahilar and right basilar patchy opacity, findings may represent multifocal infection or less likely edema. No pleural effusion or pneumothorax is seen. The heart is normal in size. No acute bony abnormality. Procedure Note [facility], Radiant Results Inft User - 04/15/2019 5:08 PM RESIDENTIAL LEASING MANAGER PROCEDURE: XR CHEST 2 VW CLINICAL INDICATION: Hypoxia COMPARISON: 04/13/2019 FINDINGS: Interval worsening of patchy opacities in the left lung as well as interval development of right suprahilar and right basilar patchy opacity, findings may represent multifocal infection or less likely edema. No pleural effusion or pneumothorax is seen. The heart is normal in size. No acute bony abnormality. IMPRESSION Interval worsening of patchy opacities in the left lung as well as interval development of right suprahilar and right basilar patchy opacity, findings may represent multifocal infection or less likely asymmetric edema. Performing Organization Address City/[facility] Phone Number PACS/VR/DOSE POCT GLUCOSE (AUTOMATED) (04/15/2019 12:56 PM RESIDENTIAL LEASING MANAGER) POCT GLU 222 (H) 70 - 110 mg/dL [facility] Specimen Blood Performing Organization Address City/State/Zipcode Phone Number [facility] CLIA: [id number], [address] [place] [phone] [facility] POCT GLUCOSE (AUTOMATED) (04/15/2019 9:24 AM RESIDENTIAL LEASING MANAGER) POCT GLU 211 (H) 70 - 110 mg/dL [facility] Specimen Blood Performing Organization Address City/[facility]/Zipcode Phone Number [facility] CLIA: [id number], [address] [place] [phone] [facility] PROFILE / HEMOGRAM (04/15/2019 5:40 AM RESIDENTIAL LEASING MANAGER) WBC 8.40 4.30 - 11.10 [facility] 10*3/L SERVICES RBC 2.71 (L) 3.93 - 5.25 [facility] 10*6/L SERVICES HGB 7.6 (L) 11.6 - 15.0 [facility] g/dL SERVICES HCT 24.6 (L) 35.7 - 45.2 % [facility] SERVICES MCH 28.0 25.9 - 32.8 pg [facility] SERVICES MCV 90.8 80.6 - 95.5 fL [facility] MCHC 30.9 (L) 31.6 - 35.1 [facility] g/dL SERVICES PLT 104 (L) 166 - 358 [facility] 10*3/L SERVICES MPV 10.3 9.5 - 12.9 fL [facility] SERVICES RDW-CV 16.1 (H) 12.0 - 15.5 % [facility] RDW-SD 52.2 (H) 39.0 - 49.9 fL [facility] SERVICES NRBC x10^3 <0.01 10*3/L [facility] SERVICES NRBC/100 WBC 0.0 0.0 - 10.0 [facility] /100 WBCs SERVICES IPF % 5.1Comment: Platelet 1.3 - 7.7 % [facility] count measured by SERVICES fluorescence method. Specimen Blood - HAND, RIGHT Performing Organization Address City/[facility]/Zipcode Phone Number [facility] CLIA: [id number], [address] [place] [phone] [facility] POCT GLUCOSE (AUTOMATED) (04/14/2019 6:23 PM RESIDENTIAL LEASING MANAGER) POCT GLU 94 70 - 110 mg/dL [facility] Specimen Blood Performing Organization Address [facility] Mex[facility]ode Phone Number [facility] CLIA: [id number], [address] [place] [address] [phone] [facility] BARIUM SWALLOW ESOPHAGUS (04/14/2019 4:20 PM RESIDENTIAL LEASING MANAGER) Specimen Impressions Performed At [facility]/VR/DOSE No structural esophageal abnormality. Delayed esophageal motility. Preliminary Report Dictated by Resident: Elvi Ordonez I reviewed this study and agree with minor modifications (no call needed to the referring physician). Melchor Adam MD., have reviewed this study and agree with the above report. Narrative Performed At BARIUM SWALLOW PACS/VR/DOSE HISTORY: dysphagia, globus sensation TECHNIQUE AND FINDINGS: The patient was administered air crystals and barium by mouth. Fluoroscopy and still images of the hypopharynx, esophagus, and stomach demonstrate no structural abnormality. Delayed esophageal motility and to and fro movements in the esophagus were noted. No gastroesophageal reflux was identified during the examination. Procedure Note [facility], [place], Radiant Results Inft User - 04/15/2019 8:59 AM RESIDENTIAL LEASING MANAGER BARIUM SWALLOW HISTORY: dysphagia, globus sensation TECHNIQUE AND FINDINGS: The patient was administered air crystals and barium by mouth. Fluoroscopy and still images of the hypopharynx, esophagus, and stomach demonstrate no structural abnormality. Delayed esophageal motility and to and fro movements in the esophagus were noted. No gastroesophageal reflux was identified during the examination. IMPRESSION No structural esophageal abnormality. Delayed esophageal motility. Preliminary Report Dictated by Resident: Elvi Ordonez I reviewed this study and agree with minor modifications (no call needed to the referring physician). Melchor Adam MD., have reviewed this study and agree with the above report. Performing Organization Address City/[facility]ode Phone Number PACS/VR/DOSE MOD BARIUM SWALLOW, (COOKIE) (04/14/2019 4:20 PM RESIDENTIAL LEASING MANAGER) Specimen Impressions Performed At PACS/VR/DOSE Normal modified barium swallow. Delayed esophageal motility. Please refer to the speech pathologist's report for further details. Preliminary Report Dictated by Resident: Elvi Ordonez I reviewed this study and agree. Melchor Adam MD., have reviewed this study and agree with the above report. Narrative Performed At [place] MODIFIED BARIUM SWALLOW PACS/VR/DOSE HISTORY: dysphagia, globus sensation TECHNIQUE and FINDINGS: Barium of varying consistencies from thin liquids to solids was administered to the patient during fluoroscopy. The study was performed with the speech pathologists. The swallow reflex and protective mechanisms are intact. No laryngeal penetration or aspiration was noted. Delayed esophageal motility was noted. Procedure Note [facility], Radiant Results Inft User - 04/15/2019 8:56 AM RESIDENTIAL LEASING MANAGER [place] MODIFIED BARIUM SWALLOW HISTORY: dysphagia, globus sensation TECHNIQUE and FINDINGS: Barium of varying consistencies from thin liquids to solids was administered to the patient during fluoroscopy. The study was performed with the speech pathologists. The swallow reflex and protective mechanisms are intact. No laryngeal penetration or aspiration was noted. Delayed esophageal motility was noted. IMPRESSION Normal modified barium swallow. Delayed esophageal motility. Please refer to the speech pathologist's report for further details. Preliminary Report Dictated by Resident: Elvi Ordonez I reviewed this study and agree. Melchor Adam MD., have reviewed this study and agree with the above report. Performing Organization Address City/[facility]/Zipcode Phone Number [facility] POCT GLUCOSE (AUTOMATED) (04/14/2019 1:12 PM RESIDENTIAL LEASING MANAGER) POCT GLU 107 70 - 110 mg/dL [facility] Specimen Blood Performing Organization Address City/[facility]/Zipcode Phone Number [facility] CLIA: [id number], [address] [place] [address] [phone] [facility] POCT GLUCOSE (AUTOMATED) (04/14/2019 8:25 AM RESIDENTIAL LEASING MANAGER) POCT GLU 86 70 - 110 mg/dL [facility] Specimen Blood Performing Organization Address City/[facility]/Zipcode Phone Number [facility] CLIA: [id number], [address] [place] [address] [phone] [place] [employer] EXTRA TUBE LAV (04/14/2019 4:50 AM RESIDENTIAL LEASING MANAGER) Specimen Blood Performing Organization Address City/State/Zipcode Phone Number [facility] CLIA: [id number], [address] [place] [phone] [facility] PROFILE / HEMOGRAM (04/14/2019 4:50 AM RESIDENTIAL LEASING MANAGER) WBC 10.70 4.30 - 11.10 [facility] 10*3/L SERVICES RBC 2.47 (L) 3.93 - 5.25 [facility] 10*6/L SERVICES HGB 7.1 (L) 11.6 - 15.0 [facility] g/dL SERVICES HCT 22.3 (L) 35.7 - 45.2 % [facility] MCH 28.7 25.9 - 32.8 pg [facility] MCV 90.3 80.6 - 95.5 fL [facility] MCHC 31.8 31.6 - 35.1 [facility] g/dL SERVICES PLT 81 (L) 166 - 358 [facility] 10*3/L SERVICES MPV 11.1 9.5 - 12.9 fL [facility] RDW-CV 15.7 (H) 12.0 - 15.5 % [facility] RDW-SD 49.7 39.0 - 49.9 fL [facility] NRBC x10^3 <0.01 10*3/L [facility] NRBC/100 WBC 0.0 0.0 - 10.0 [facility] /100 WBCs SERVICES IPF % 4.1Comment: Platelet 1.3 - 7.7 % [facility] count measured by SERVICES fluorescence method. Specimen Blood Performing Organization Address City/State/Zipcode Phone Number [facility] CLIA: [id number], [address] [place] [phone] [facility] Type and Screen - ONCE ADEEL (04/14/2019 4:50 AM RESIDENTIAL LEASING MANAGER) ABO & RH O POSITIVE LAB Comment: Performed at [facility] Services - [facility] Blood Bank [address] [place] [address] Toll Free: [phone] CLIA No. [id number] IAT Negative LAB Comment: Performed at [facility] Services - [facility] Blood Bank [address] [place] [address] Toll Free: [phone] CLIA No. [id number] Specimen VENOUS Performing Organization Address City/[facility]/Zipcode Phone Number [facility] PROFILE / HEMOGRAM (04/14/2019 3:45 AM RESIDENTIAL LEASING MANAGER) WBC 10.76 4.30 - 11.10 [facility] 10*3/L SERVICES RBC 2.41 (L) 3.93 - 5.25 [facility] 10*6/L SERVICES HGB 6.7 (L) 11.6 - 15.0 [facility] g/dL SERVICES HCT 21.7 (L) 35.7 - 45.2 % [facility] MCH 27.8 25.9 - 32.8 pg [facility] MCV 90.0 80.6 - 95.5 fL [facility] MCHC 30.9 (L) 31.6 - 35.1 [facility] g/dL SERVICES PLT 82 (L) 166 - 358 [facility] 10*3/L SERVICES MPV 10.6 9.5 - 12.9 fL [facility] RDW-CV 15.6 (H) 12.0 - 15.5 % [facility] RDW-SD 49.5 39.0 - 49.9 fL [facility] NRBC x10^3 0.02 10*3/L [facility] NRBC/100 WBC 0.2 0.0 - 10.0 [facility] /100 WBCs SERVICES IPF % 3.1Comment: Platelet 1.3 - 7.7 % [facility] count measured by SERVICES fluorescence method. Specimen Blood - LINE, VENOUS Performing Organization Address City/State/Zipcode Phone Number [facility] CLIA: [id number], [address] [place] [phone] [facility] COMP. METABOLIC PANEL ([id number]) (04/14/2019 3:45 AM RESIDENTIAL LEASING MANAGER) NA 137 135 - 145 [facility] mmol/L SERVICES K 3.6 3.5 - 5.0 [facility] mmol/L SERVICES CL 107 98 - 108 mmol/L [facility] CO2 TOTAL 24 23 - 31 mmol/L [facility] AGAP 6 2 - 16 [facility] BUN 14 7 - 23 mg/dL [facility] GLUCOSE 117 (H) 70 - 110 mg/dL [facility] CREATININE 1.00 0.50 - 1.04 [facility] mg/dL SERVICES TOTAL BILI 1.2 (H) 0.1 - 1.1 mg/dL [facility] CALCIUM 7.8 (L) 8.6 - 10.6 [facility] mg/dL SERVICES T PROTEIN 5.9 (L) 6.3 - 8.2 g/dL [facility] ALBUMIN 2.5 (L) 3.5 - 5.0 g/dL [facility] ALK PHOS 261 (H) 34 - 122 U/L [facility] ALTv 15 5 - 35 U/L [facility] AST(SGOT) 32 13 - 40 U/L [facility] eGFR Calculation 60.2 mL/min/1.73m2 [facility] (Non- SERVICES Citizen [place]) eGFR Calculation 73.0 mL/min/1.73m2 [facility] () SERVICES Specimen Blood - LINE, VENOUS Narrative Performed At Association of Glomerular Filtration Rate (GFR) and Staging [facility] of Kidney Disease* + + + + | GFR (mL/min/1.73 m2) | With Kidney Damage | Without Kidney Damage + + + + | >90 | Stage one | Normal + + + + | 60-89 | Stage two | Decreased GFR + + + + | 30-59 | Stage three | Stage three + + + + | 15-29 | Stage four | Stage four + + + + | <15 (or dialysis) | Stage five | Stage five + + + + *Each stage assumes the associated GFR level has been in effect for at least three months. Stages 1 to 5, with or without kidney disease, indicate chronic kidney disease. Notes: Determination of stages one and two (with eGFR >59mL/min/1.73 m2) requires estimation of kidney damage for at least three months as defined by structural or functional abnormalities of the kidney, manifested by either: Pathological abnormalities or Markers of kidney damage (including abnormalities in the composition of the blood or urine or abnormalities in imaging tests). Performing Organization Address City/State/Zipcode Phone Number [facility] CLIA: [id number], [address] [place] [address] [phone] [facility] POCT GLUCOSE (AUTOMATED) (04/13/2019 9:04 PM RESIDENTIAL LEASING MANAGER) POCT GLU 171 (H) 70 - 110 mg/dL [facility] Specimen Blood Performing Organization Address City/[facility] Mexicocode Phone Number [facility] CLIA: [id number], [address] [place] [address] [phone] [facility] POCT GLUCOSE (AUTOMATED) (04/13/2019 9:25 AM RESIDENTIAL LEASING MANAGER) POCT GLU 131 (H) 70 - 110 mg/dL [facility] Specimen Blood Performing Organization Address City/[facility] Mex[facility]ocode Phone Number [facility] CLIA: [id number], [address] [place] [phone] [facility] XR CHEST 1 VW (04/13/2019 3:52 AM RESIDENTIAL LEASING MANAGER) Specimen Impressions Performed At PACS/VR/DOSE Patchy opacification in the left lower lobe concerning for pneumonia. Small left pleural effusion. Preliminary Report Dictated by Resident: Aracelis Machado I, Olaf Baez MD., have reviewed this study and agree with the above report. Narrative Performed At PROCEDURE: XR CHEST 1 VW PACS/VR/DOSE CLINICAL INDICATION: SOB, cough TECHNIQUE: AP and lateral views of the chest were obtained. COMPARISON: 04/09/2019. FINDINGS: Patchy opacification in the left lung base is concerning for pneumonia. A small pleural effusion blunts the left costophrenic angle. No pleural effusion or pneumothorax is seen. The heart is normal in size. No acute bony abnormality. Procedure Note [facility], Radiant Results Inft User - 04/13/2019 9:59 AM RESIDENTIAL LEASING MANAGER PROCEDURE: XR CHEST 1 VW CLINICAL INDICATION: SOB, cough TECHNIQUE: AP and lateral views of the chest were obtained. COMPARISON: 04/09/2019. FINDINGS: Patchy opacification in the left lung base is concerning for pneumonia. A small pleural effusion blunts the left costophrenic angle. No pleural effusion or pneumothorax is seen. The heart is normal in size. No acute bony abnormality. IMPRESSION Patchy opacification in the left lower lobe concerning for pneumonia. Small left pleural effusion. Preliminary Report Dictated by Resident: Aracelis Machado I, Olaf Baez MD., have reviewed this study and agree with the above report. Performing Organization Address City/State/Zipcode Phone Number PACS/VR/DOSE TROPONIN I (04/13/2019 3:51 AM RESIDENTIAL LEASING MANAGER) TROPONIN I 0.003 <=0.034 ng/mL [facility] Specimen Blood - LINE, VENOUS Narrative Performed At Equal or Less than 0.034 ng/ml---Normal [facility] Note: Cardiac troponin begins to rise 3-4 hours after the onset of ischemia. Repeat in 4-6 hours if the sample was drawn within 3-4 hours of the onset of the symptom and found normal. Between 0.035 and 0.120 ng/mL--- Borderline. Questionable myocardial injury or necrosis Note: Serial measurement may be necessary to confirm or exclude the diagnosis of myocardial injury or necrosis; Clinical correlation (symptoms, EKGs, imaging studies, and others) required; Repeat in 4-6 hours if clinically indicated. Equal or Higher than 0.121 ng/mL---Abnormal. Myocardial Injury or Necrosis Likely Biotin has been reported to cause a negative bias, interpret results relative to patient's use of biotin. Performing Organization Address City/State/Zipcode Phone Number [facility] CLIA: [id number], [address] [place] [address] [phone] [facility] PROFILE / HEMOGRAM (04/13/2019 3:51 AM RESIDENTIAL LEASING MANAGER) WBC 6.90 4.30 - 11.10 [facility] 10*3/L SERVICES RBC 2.97 (L) 3.93 - 5.25 [facility] 10*6/L SERVICES HGB 8.0 (L) 11.6 - 15.0 g/dL [facility] HCT 26.7 (L) 35.7 - 45.2 % [facility] MCH 26.9 25.9 - 32.8 pg [facility] MCV 89.9 80.6 - 95.5 fL [facility] MCHC 30.0 (L) 31.6 - 35.1 g/dL [facility] PLT 102 (L) 166 - 358 10*3/L [facility] MPV 10.4 9.5 - 12.9 fL [facility] RDW-CV 15.1 12.0 - 15.5 % [facility] RDW-SD 48.1 39.0 - 49.9 fL [facility] NRBC x10^3 <0.01 10*3/L [facility] NRBC/100 WBC 0.0 0.0 - 10.0 /100 [facility] WBCs SERVICES IPF % [facility] Specimen Blood - LINE, VENOUS Performing Organization Address City/State/Zipcode Phone Number [facility] CLIA: [id number], [address] [place] [address] [facility] COMP. METABOLIC PANEL ([id number]) (04/13/2019 3:51 AM RESIDENTIAL LEASING MANAGER) NA 136 135 - 145 [facility] mmol/L SERVICES K 4.5Comment: 3.5 - 5.0 [facility] Slight hemolysis mmol/L SERVICES CL 106 98 - 108 [facility] mmol/L SERVICES CO2 TOTAL 22 (L) 23 - 31 [facility] mmol/L SERVICES AGAP 8 2 - 16 [facility] BUN 15Comment: Slight 7 - 23 mg/dL [facility] hemolysis SERVICES GLUCOSE 178 (H) 70 - 110 [facility] mg/dL SERVICES CREATININE 0.96 0.50 - 1.04 [facility] mg/dL SERVICES TOTAL BILI 1.1 0.1 - 1.1 [facility] mg/dL SERVICES CALCIUM 8.0 (L) 8.6 - 10.6 [facility] mg/dL SERVICES T PROTEIN 7.2 6.3 - 8.2 [facility] g/dL SERVICES ALBUMIN 3.1 (L) 3.5 - 5.0 [facility] g/dL SERVICES ALK PHOS 351 (H)Comment: 34 - 122 U/L [facility] Slight hemolysis SERVICES ALTv 19 5 - 35 U/L [facility] SERVICES AST(SGOT) 60 (H)Comment: 13 - 40 U/L [facility] Slight hemolysis SERVICES eGFR Calculation 63.1 mL/min/1.73m2 [facility] (Non- SERVICES Citizen [place]) eGFR Calculation 76.5 mL/min/1.73m2 [facility] () SERVICES Specimen Blood - LINE, VENOUS Narrative Performed At Association of Glomerular Filtration Rate (GFR) and Staging [facility] of Kidney Disease* + + + + | GFR (mL/min/1.73 m2) | With Kidney Damage | Without Kidney Damage + + + + | >90 | Stage one | Normal + + + + | 60-89 | Stage two | Decreased GFR + + + + | 30-59 | Stage three | Stage three + + + + | 15-29 | Stage four | Stage four + + + + | <15 (or dialysis) | Stage five | Stage five + + + + *Each stage assumes the associated GFR level has been in effect for at least three months. Stages 1 to 5, with or without kidney disease, indicate chronic kidney disease. Notes: Determination of stages one and two (with eGFR >59mL/min/1.73 m2) requires estimation of kidney damage for at least three months as defined by structural or functional abnormalities of the kidney, manifested by either: Pathological abnormalities or Markers of kidney damage (including abnormalities in the composition of the blood or urine or abnormalities in imaging tests). Performing Organization Address City/State/Zipcode Phone Number [facility] CLIA: [id number], [address] [place] [phone] [facility] PROCALCITONIN (04/13/2019 3:50 AM RESIDENTIAL LEASING MANAGER) Procalcitonin 0.09 (H) <0.07 ng/mL [facility] Specimen Blood - LINE, VENOUS Narrative Performed At INTERPRETATION OF PROCALCITONIN RESULTS IN ADULTS >=18 YEARS [facility] OF AGE Initiation and discontinuation of antibiotics on patients with suspected or confirmed Lower Respiratory Tract Infection in Adults >=18 years of age. + + + + + |Procalcitonin |Interpretation |Antibiotic |Considerations |ng/mL | |recommendation | + + + + + | <0.1 | Bacterial | Strongly | | | infection very | discouraged | Overruling: | | unlikely | | Clinically unstable + + + + High risk for adverse | <0.25 | Bacterial | Discouraged | outcome | | infection | | SEE IMPORTANT NOTE | | unlikely | | + + + + + | >=0.25 | Bacterial | Encouraged | | | infection | | | | likely | | Consider treatment failure + + + + if levels does not decrease | >0.5 | Bacterial | Strongly | appropriately | | infection very | encouraged | | | likely | | + + + + + Discontinuation of antibiotics in high-acuity patients with suspected or confirmed sepsis in Adults >=18 years of age. + + + + + |Procalcitonin |Interpretation |Antibiotic |Considerations |ng/mL | |recommendation | + + + + + | <0.25 | Bacterial | Strongly | | | infection very | discouraged | Overruling: | | unlikely | | Clinically unstable + + + + High risk for adverse | <0.5 or drop | Bacterial | Discouraged | outcome | >80% from | infection | | SEE IMPORTANT NOTE | highest PCT | unlikely | | | level | | | + + + + + | >=0.5 | Bacterial | Encouraged | | | infection | | | | likely | | Consider treatment failure + + + + if levels does not decrease | >1.0 | Bacterial | Strongly | appropriately | | infection very | encouraged | | | likely | | + + + + + Percentage of drop of Procalcitonin calculation for Discontinuation of antibiotics in high-acuity patients with suspected or confirmed sepsis in Adults >=18 years of age. Procalcitonin highest{}-Procalcitonin current{} Delta Procalcitonin= _ x100% Procalcitonin current {} IMPORTANT NOTE: Procalcitonin may be elevated without bacterial infection by physiologic stress related to trauma, hooks, chronic dialysis, metastatic cancer, surgery in the past seven days, malaria, some fungal infections, and some forms of vasculitis. The interpretation algorithm may not apply to patients with immunosuppression (equivalent of >10 mg of prednisone daily), HIV with CD4 cell count < 350 cells/mm3, active malignancy on systemic chemotherapy, solid organ transplant or hematopoietic stem cell transplantation, or hospital acquired pneumonia. Additionally, some clinical trials of procalcitonin have excluded patients with shock requiring vasopressor use, acute respiratory failure requiring mechanical ventilation, or those with known lung abscess/empyema. For further information please refer to: [email or web address] Performing Organization Address City/[facility] Mex[facility]ode Phone Number [facility] CLIA: [id number], [address] [place] [address] [facility] POCT GLUCOSE (AUTOMATED) (04/13/2019 3:45 AM RESIDENTIAL LEASING MANAGER) Pathologist [facility] POCT GLU 203 (H) 70 - 110 mg/dL [facility] Specimen Blood Performing Organization Address [facility] Mexicoconv Phone Number [facility] CLIA: [id number], [address] [place] [phone] [facility] GALV ONLY - INFLUENZA A B RSV PCR (04/13/2019 3:16 AM RESIDENTIAL LEASING MANAGER) Pathologist [facility] Influenza A virus by Negative Negative [facility] SERVICES Influenza B virus by Negative Negative [facility] SERVICES RSV by PCR Negative Negative [facility] Specimen Fluid - NASOPHARYNGEAL SWAB Performing Organization Address [facility] Mex[facility]v Phone Number [facility] CLIA: [id number], [address] [place] [phone] [facility] POCT GLUCOSE (AUTOMATED) (04/12/2019 8:42 PM RESIDENTIAL LEASING MANAGER) POCT GLU 181 (H) 70 - 110 mg/dL [facility] Specimen Blood Performing Organization Address [facility] Mex[facility]v Phone Number [facility] CLIA: [id number], [address] [place] [address] [phone] [facility] POCT GLUCOSE (AUTOMATED) (04/12/2019 3:52 PM RESIDENTIAL LEASING MANAGER) POCT GLU 109 70 - 110 mg/dL [facility] Specimen Blood Performing Organization Address [facility] Mex[facility]v Phone Number [facility] CLIA: [id number], [address] [place] [address] [phone] [facility] OCCULT (GUAIAC) BLOOD (04/12/2019 12:49 PM RESIDENTIAL LEASING MANAGER) Occult (guaiac) Blood Negative Negative [facility] Specimen Stool - ANAL Performing Organization Address [place] [facility] Phone Number [facility] CLIA: [id number], [address] [place] [address] [phone] [facility] POCT GLUCOSE (AUTOMATED) (04/12/2019 11:20 AM RESIDENTIAL LEASING MANAGER) POCT GLU 83 70 - 110 mg/dL [facility] Specimen Blood Performing Organization Address City/[facility] Phone Number [facility] CLIA: [id number], [address] [place] [address] [phone] [facility] POCT GLUCOSE (AUTOMATED) (04/12/2019 7:56 AM RESIDENTIAL LEASING MANAGER) POCT GLU 95 70 - 110 mg/dL [facility] Specimen Blood Performing Organization Address [facility] Phone Number [facility] CLIA: [id number], [address] [place] [address] [phone] [facility] PROTHROMBIN TIME / INR (04/12/2019 4:29 AM RESIDENTIAL LEASING MANAGER) PROTIME PATIENT 13.0 (H) 10.1 - 12.6 [facility] Seconds SERVICES INR 1.2Comment: Normal [facility] INR <1.1; Warfarin SERVICES Therapeutic range 2.0 to 3.0 or 2.5 to 3.5, depending upon the indications. Specimen Blood - LINE, VENOUS Performing Organization Address City/State/Zipcode Phone Number [facility] CLIA: [id number], [address] [place] [address] [facility] COMP. METABOLIC PANEL (57015) (04/12/2019 4:29 AM RESIDENTIAL LEASING MANAGER) NA 135 135 - 145 [facility] mmol/L SERVICES K 3.7 3.5 - 5.0 [facility] mmol/L SERVICES CL 106 98 - 108 mmol/L [facility] CO2 TOTAL 22 (L) 23 - 31 mmol/L [facility] AGAP 7 2 - 16 [facility] BUN 17 7 - 23 mg/dL [facility] GLUCOSE 69 (L) 70 - 110 mg/dL [facility] CREATININE 0.93 0.50 - 1.04 [facility] mg/dL SERVICES TOTAL BILI 1.0 0.1 - 1.1 mg/dL [facility] CALCIUM 7.6 (L) 8.6 - 10.6 [facility] mg/dL SERVICES T PROTEIN 6.4 6.3 - 8.2 g/dL [facility] ALBUMIN 2.9 (L) 3.5 - 5.0 g/dL [facility] ALK PHOS 292 (H) 34 - 122 U/L [facility] ALTv 16 5 - 35 U/L [facility] AST(SGOT) 42 (H) 13 - 40 U/L [facility] eGFR Calculation 65.5 mL/min/1.73m2 [facility] (Non- SERVICES Citizen [place]) eGFR Calculation 79.4 mL/min/1.73m2 [facility] () SERVICES Specimen Blood - LINE, VENOUS Narrative Performed At Association of Glomerular Filtration Rate (GFR) and Staging [facility] of Kidney Disease* + + + + | GFR (mL/min/1.73 m2) | With Kidney Damage | Without Kidney Damage + + + + | >90 | Stage one | Normal + + + + | 60-89 | Stage two | Decreased GFR + + + + | 30-59 | Stage three | Stage three + + + + | 15-29 | Stage four | Stage four + + + + | <15 (or dialysis) | Stage five | Stage five + + + + *Each stage assumes the associated GFR level has been in effect for at least three months. Stages 1 to 5, with or without kidney disease, indicate chronic kidney disease. Notes: Determination of stages one and two (with eGFR >59mL/min/1.73 m2) requires estimation of kidney damage for at least three months as defined by structural or functional abnormalities of the kidney, manifested by either: Pathological abnormalities or Markers of kidney damage (including abnormalities in the composition of the blood or urine or abnormalities in imaging tests). Performing Organization Address City/State/Zipcode Phone Number [facility] CLIA: [id number], [address] [place] [phone] [facility] PROFILE / HEMOGRAM (04/12/2019 4:25 AM RESIDENTIAL LEASING MANAGER) [facility] WBC 5.87 4.30 - 11.10 [facility] 10*3/L SERVICES RBC 2.71 (L) 3.93 - 5.25 [facility] 10*6/L SERVICES HGB 7.5 (L) 11.6 - 15.0 [facility] g/dL SERVICES HCT 24.1 (L) 35.7 - 45.2 % [facility] MCH 27.7 25.9 - 32.8 pg [facility] MCV 88.9 80.6 - 95.5 fL [facility] MCHC 31.1 (L) 31.6 - 35.1 [facility] g/dL SERVICES PLT 94 (L) 166 - 358 [facility] 10*3/L SERVICES MPV 10.6 9.5 - 12.9 fL [facility] RDW-CV 15.2 12.0 - 15.5 % [facility] RDW-SD 48.0 39.0 - 49.9 fL [facility] NRBC x10^3 <0.01 10*3/L [facility] NRBC/100 WBC 0.0 0.0 - 10.0 [facility] /100 WBCs SERVICES IPF % 5.6Comment: Platelet 1.3 - 7.7 % [facility] count measured by SERVICES fluorescence method. Specimen Blood - LINE, VENOUS Performing Organization Address City/State/Zipcode Phone Number [facility] CLIA: [id number], [address] [place] [address] [phone] [facility] POCT GLUCOSE (AUTOMATED) (04/11/2019 8:24 PM RESIDENTIAL LEASING MANAGER) POCT GLU 91 70 - 110 mg/dL [facility] Specimen Blood Performing Organization Address City/[facility]/Zipcode Phone Number [facility] CLIA: [id number], [address] [place] [address] POCT GLUCOSE (AUTOMATED) (04/11/2019 4:12 PM RESIDENTIAL LEASING MANAGER) POCT GLU 106 70 - 110 mg/dL [facility] Specimen Blood Performing Organization Address City/[facility] Phone Number [facility] CLIA: [id number], [address] [place] [address] POCT GLUCOSE (AUTOMATED) (04/11/2019 11:14 AM RESIDENTIAL LEASING MANAGER) POCT GLU 102 70 - 110 mg/dL [facility] Specimen Blood Performing Organization Address City/[facility] Phone Number [facility] CLIA: [id number], [address] [place] [address] HIV 1/2 AG-AB WITH REFLEX (04/11/2019 4:11 AM RESIDENTIAL LEASING MANAGER) HIV 1/2 Ag-Ab with Negative Negative [facility] LABORATORY HIV Semi-quantitative 0.08 [facility] Specimen Blood - ARM, LEFT Narrative Performed At Non-reactive for HIV-1 antigen and HIV-1/HIV-2 [facility] antibodies. No laboratory evidence of HIV infection. Repeat in 2-4 weeks if acute HIV infection is suspected. Performing Organization Address City/[facility] Phone Number [facility] CLIA: [id number], [address] [place] [address] URIC ACID (04/11/2019 4:11 AM RESIDENTIAL LEASING MANAGER) URIC ACID 5.9 2.9 - 6.0 mg/dL [facility] Specimen Blood - ARM, LEFT Performing Organization Address City/[facility] Phone Number [facility] CLIA: [id number], [address] [place] [address] GAMMA GLUTAMYLTRANSFERASE (04/11/2019 4:11 AM RESIDENTIAL LEASING MANAGER) GGT 50 (H) 13 - 40 U/L [facility] Specimen Blood - ARM, LEFT Performing Organization Address City/State/Zipcode Phone Number [facility] CLIA: [id number], [address] [place] [id number] [address] CBC WITH DIFFERENTIAL (04/11/2019 4:11 AM RESIDENTIAL LEASING MANAGER) WBC 4.71 4.30 - 11.10 [facility] 10*3/L [facility] RBC 2.73 (L) 3.93 - 5.25 [facility] 10*6/L [facility] HGB 7.3 (L) 11.6 - 15.0 [facility] g/dL [facility] HCT 24.3 (L) 35.7 - 45.2 % [facility] MCV 89.0 80.6 - 95.5 [facility] LABORATORY MCH 26.7 25.9 - 32.8 [facility] pg [facility] MCHC 30.0 (L) 31.6 - 35.1 [facility] g/dL [facility] RDW-SD 46.8 39.0 - 49.9 [facility] LABORATORY RDW-CV 14.9 12.0 - 15.5 % [facility] PLT 82 (L) 166 - 358 [facility] 10*3/L [facility] MPV 10.7 9.5 - 12.9 fL [facility] IPF % 3.0Comment: Platelet 1.3 - 7.7 % [facility] count measured by HOSPITAL fluorescence method. LABORATORY NRBC/100 WBC 0.0 0.0 - 10.0 [facility] /100 WBCs [facility] NRBC x10^3 <0.01 10*3/L [facility] GRAN MAT (NEUT) % 71.8 % [facility] IMM GRAN % 0.20 % [facility] LYMPH % 12.3 % [facility] MONO % 10.8 % [facility] EOS % 4.5 % [facility] BASO % 0.4 % [facility] GRAN MAT 3.38 1.88 - 7.09 [facility] x10^3(ANC) 10*3/uL [facility] LAB[facility]ATORY IMM GRAN x10^3 <0.03 0.00 - 0.06 [facility] 10*3/uL [facility]ORY LYMPH x10^3 0.58 (L) 1.32 - 3.29 [facility] 10*3/uL [facility] MONO x10^3 0.51 0.33 - 0.92 [facility] 10*3/uL [facility] LAB[facility]ORY EOS x10^3 0.21 0.03 - 0.39 [facility] 10*3/uL [facility] BASO x10^3 <0.03 0.01 - 0.07 [facility] 10*3/uL [facility] Specimen Blood - ARM, LEFT Performing Organization Address City/State/Zipcode Phone Number [facility] CLIA: [id number], [address] [place] [address] COMP. METABOLIC PANEL ([id number]) (04/11/2019 4:11 AM RESIDENTIAL LEASING MANAGER) NA 138 135 - 145 [facility] mmol/L [facility] K 4.0 3.5 - 5.0 [facility] mmol/L [facility] CL 107 98 - 108 mmol/L [facility] CO2 TOTAL 24 23 - 31 mmol/L [facility] AGAP 7 2 - 16 [facility] BUN 22 7 - 23 mg/dL [facility] GLUCOSE 156 (H) 70 - 110 mg/dL [facility] CREATININE 1.18 (H) 0.50 - 1.04 [facility] mg/dL [facility] TOTAL BILI 0.7 0.1 - 1.1 mg/dL [facility] CALCIUM 8.0 (L) 8.6 - 10.6 [facility] mg/dL [facility] T PROTEIN 6.4 6.3 - 8.2 g/dL [facility] ALBUMIN 2.8 (L) 3.5 - 5.0 g/dL [facility] ALK PHOS 314 (H) 34 - 122 U/L [facility] ALTv 15 5 - 35 U/L [facility] AST(SGOT) 34 13 - 40 U/L [facility] eGFR Calculation 49.8 mL/min/1.73m2 [facility] (Non-[facility] LABORATORY [place]) eGFR Calculation 60.3 mL/min/1.73m2 [facility] () [facility] Specimen Blood - ARM, LEFT Narrative Performed At [facility] of Glomerular Filtration Rate (GFR) [facility] and Staging of Kidney Disease* + + +- + | GFR (mL/min/1.73 m2) | With Kidney Damage | Without Kidney Damage + + +- + | >90 | Stage one | Normal + + +- + | 60-89 | Stage two | Decreased GFR + + +- + | 30-59 | Stage three | Stage three + + +- + | 15-29 | Stage four | Stage four + + +- + | <15 (or dialysis) | Stage five | Stage five + + +- + *Each stage assumes the associated GFR level has been in effect for at least three months. Stages 1 to 5, with or without kidney disease, indicate chronic kidney disease. Notes: Determination of stages one and two (with eGFR >59mL/min/1.73 m2) requires estimation of kidney damage for at least three months as defined by structural or functional abnormalities of the kidney, manifested by either: Pathological abnormalities or Markers of kidney damage (including abnormalities in the composition of the blood or urine or abnormalities in imaging tests). Performing Organization Address [facility] Phone Number [facility]: [id number], [address] [place] [address] POCT GLUCOSE (AUTOMATED) (04/10/2019 8:01 PM RESIDENTIAL LEASING MANAGER) POCT GLU 124 (H) 70 - 110 mg/dL [facility] Specimen Blood Performing Organization Address [facility] Phone Number [facility]: [id number], [address] [place] [address] POCT GLUCOSE (AUTOMATED) (04/10/2019 3:28 PM RESIDENTIAL LEASING MANAGER) POCT GLU 190 (H) 70 - 110 mg/dL [facility] Specimen Blood Performing Organization Address [facility] Phone Number [facility] CLIA: [id number], [address] [place] [address] POCT GLUCOSE (AUTOMATED) (04/10/2019 11:16 AM RESIDENTIAL LEASING MANAGER) POCT GLU 312 (H) 70 - 110 mg/dL [facility] Specimen Blood Performing Organization Address [facility] Phone Number [facility] CLIA: [id number], [address] [place], [place] [address] [address]OR[address] HEMOGLOBIN (04/10/2019 10:13 AM RESIDENTIAL LEASING MANAGER) [facility] Signature HGB 7.6 (L) 11.6 - 15.0 g/dL [facility] Specimen Blood - ARM, RIGHT Performing Organization Address [facility] Phone Number [facility] CLIA: [id number], [address] [place] [address] Lactic Acid Whole Blood (04/10/2019 10:13 AM RESIDENTIAL LEASING MANAGER) Pathologist [facility] LACTIC ACID 2.05 0.50 - 2.20 mmol/L [facility] Specimen Blood - ARM, RIGHT Performing Organization Address [place]/[facility] Phone Number [facility] CLIA: [id number], [address] [place] [address] Troponin I (04/10/2019 10:13 AM RESIDENTIAL LEASING MANAGER) Pathologist [facility] TROPONIN I 0.004 <=0.034 ng/mL [facility] Specimen Blood - ARM, RIGHT Narrative Performed At Equal or Less than 0.034 ng/ml---Normal [facility] Note: Cardiac troponin begins to rise 3-4 hours after the onset of ischemia. Repeat in 4-6 hours if the sample was drawn within 3-4 hours of the onset of the symptom and found normal. Between 0.035 and 0.120 ng/mL--- Borderline. Questionable myocardial injury or necrosis Note: Serial measurement may be necessary to confirm or exclude the diagnosis of myocardial injury or necrosis; Clinical correlation (symptoms, EKGs, imaging studies, and others) required; Repeat in 4-6 hours if clinically indicated. Equal or Higher than 0.121 ng/mL---Abnormal. Myocardial Injury or Necrosis Likely Biotin has been reported to cause a negative bias, interpret results relative to patient's use of biotin. Performing Organization Address [facility] Phone Number [facility] CLIA: [id number], [address] [place] [address] POCT GLUCOSE (AUTOMATED) (04/10/2019 7:41 AM RESIDENTIAL LEASING MANAGER) POCT GLU 286 (H) 70 - 110 mg/dL [facility] Specimen Blood Performing Organization Address City/State/Zipcode Phone Number [facility] CLIA: [id number], [address] [place] [address] CBC WITH DIFFERENTIAL (04/10/2019 5:21 AM RESIDENTIAL LEASING MANAGER) WBC 4.20 (L) 4.30 - 11.10 [facility] 10*3/L [facility] RBC 2.65 (L) 3.93 - 5.25 [facility] 10*6/L [facility] HGB 7.1 (L) 11.6 - 15.0 [facility] g/dL [facility] HCT 23.7 (L) 35.7 - 45.2 % [facility] MCV 89.4 80.6 - 95.5 [facility] LABORATORY MCH 26.8 25.9 - 32.8 [facility] pg [facility] MCHC 30.0 (L) 31.6 - 35.1 [facility] g/dL [facility] RDW-SD 45.3 39.0 - 49.9 [facility] LABORATORY RDW-CV 14.4 12.0 - 15.5 % [facility] PLT 76 (L) 166 - 358 [facility] 10*3/L [facility] MPV 11.0 9.5 - 12.9 fL [facility] IPF % 3.0Comment: Platelet 1.3 - 7.7 % [facility] count measured by HOSPITAL fluorescence method. LABORATORY NRBC/100 WBC 0.0 0.0 - 10.0 [facility] /100 WBCs [facility] NRBC x10^3 <0.01 10*3/L [facility] GRAN MAT (NEUT) % 64.5 % [facility] IMM GRAN % 0.20 % [facility] LYMPH % 16.7 % [facility] MONO % 11.7 % [facility] EOS % 6.4 % [facility] BASO % 0.5 % [facility] GRAN MAT 2.71 1.88 - 7.09 [facility] x10^3(ANC) 10*3/uL [facility]ITAL LAB[facility]ATORY IMM GRAN x10^3 <0.03 0.00 - 0.06 [facility] 10*3/uL [facility]ITAL LAB[facility]ATORY LYMPH x10^3 0.70 (L) 1.32 - 3.29 [facility] 10*3/uL [facility]ITAL LAB[facility]ATORY MONO x10^3 0.49 0.33 - 0.92 [facility] 10*3/uL [facility]OS[facility]ITAL LAB[facility]ATORY EOS x10^3 0.27 0.03 - 0.39 [facility] 10*3/uL [facility]ITAL [facility]ORY BASO x10^3 <0.03 0.01 - 0.07 [facility] 10*3/uL [facility] Specimen Blood - ARM, LEFT Performing Organization Address City/[facility]/Zipcode Phone Number [facility] CLIA: [id number], [address] [place] [address] Troponin I (04/10/2019 5:21 AM RESIDENTIAL LEASING MANAGER) TROPONIN I 0.004 <=0.034 ng/mL [facility] Specimen Blood - ARM, LEFT Narrative Performed At Equal or Less than 0.034 ng/ml---Normal [facility] Note: Cardiac troponin begins to rise 3-4 hours after the onset of ischemia. Repeat in 4-6 hours if the sample was drawn within 3-4 hours of the onset of the symptom and found normal. Between 0.035 and 0.120 ng/mL--- Borderline. Questionable myocardial injury or necrosis Note: Serial measurement may be necessary to confirm or exclude the diagnosis of myocardial injury or necrosis; Clinical correlation (symptoms, EKGs, imaging studies, and others) required; Repeat in 4-6 hours if clinically indicated. Equal or Higher than 0.121 ng/mL---Abnormal. Myocardial Injury or Necrosis Likely Biotin has been reported to cause a negative bias, interpret results relative to patient's use of biotin. Performing Organization Address City/[facility]/Zipcode Phone Number [facility] CLIA: [id number], [address] [place] [address] COMP. METABOLIC PANEL ([id number]) (04/10/2019 5:21 AM RESIDENTIAL LEASING MANAGER) NA 136 135 - 145 [facility] mmol/L HOSPITAL LABORATORY K 4.0 3.5 - 5.0 [facility] mmol/L [facility]ITAL LAB[facility]ATORY CL 105 98 - 108 mmol/L [facility] CO2 TOTAL 24 23 - 31 mmol/L [facility] AGAP 7 2 - 16 [facility] BUN 23 7 - 23 mg/dL [facility] GLUCOSE 258 (H) 70 - 110 mg/dL [facility] CREATININE 0.90 0.50 - 1.04 [facility] mg/dL [facility] TOTAL BILI 0.7 0.1 - 1.1 mg/dL [facility] CALCIUM 8.0 (L) 8.6 - 10.6 [facility] mg/dL [facility] T PROTEIN 6.3 6.3 - 8.2 g/dL [facility] ALBUMIN 2.7 (L) 3.5 - 5.0 g/dL [facility] ALK PHOS 303 (H) 34 - 122 U/L [facility] ALTv 16 5 - 35 U/L [facility] AST(SGOT) 35 13 - 40 U/L [facility] eGFR Calculation 68.0 mL/min/1.73m2 [facility] (Non[facility] LABORATORY [place]) eGFR Calculation 82.4 mL/min/1.73m2 [facility] () [facility] Specimen Blood - ARM, LEFT Narrative Performed At Association [facility] Glomerular Filtration Rate (GFR) [facility] and Staging of Kidney Disease* + + +- + | GFR (mL/min/1.73 m2) | With Kidney Damage | Without Kidney Damage + + +- + | >90 | Stage one | Normal + + +- + | 60-89 | Stage two | Decreased GFR + + +- + | 30-59 | Stage three | Stage three + + +- + | 15-29 | Stage four | Stage four + + +- + | <15 (or dialysis) | Stage five | Stage five + + +- + *Each stage assumes the associated GFR level has been in effect for at least three months. Stages 1 to 5, with or without kidney disease, indicate chronic kidney disease. Notes: Determination of stages one and two (with eGFR >59mL/min/1.73 m2) requires estimation of kidney damage for at least three months as defined by structural or functional abnormalities of the kidney, manifested by either: Pathological abnormalities or Markers of kidney damage (including abnormalities in the composition of the blood or urine or abnormalities in imaging tests). Performing Organization Address City/State/Zipcode Phone Number [facility] CLIA: [id number], [address] [place] [address] N-TERMINAL PRO-BNP (04/10/2019 5:21 AM RESIDENTIAL LEASING MANAGER) NT-proBNP 437 (H) <=125 pg/mL [facility] Specimen Blood - ARM, LEFT Narrative Performed At Biotin has been reported to cause a negative [facility] bias, interpret results relative to patient's use of biotin. Performing Organization Address City/[facility] Phone Number [facility] CLIA: [id number], [address] [place] [address] AMMONIA, PLASMA (04/10/2019 5:21 AM RESIDENTIAL LEASING MANAGER) AMMONIA 70 (H) 9 - 33 umol/L [facility] Specimen Blood - ARM, LEFT Performing Organization Address [facility] Phone Number [facility] CLIA: [id number], [address] [place] [address] Urine Culture (04/10/2019 2:38 AM RESIDENTIAL LEASING MANAGER) URINE CULTURE No aerobic growth [facility] (< 1000 CFU/mL) SERVICES Specimen Urine - URINE, CLEAN CATCH Performing Organization Address [facility] Phone Number [facility] CLIA: [id number], [address] [place] [id number] [facility] POCT GLUCOSE (AUTOMATED) (04/10/2019 2:14 AM RESIDENTIAL LEASING MANAGER) POCT GLU 275 (H) 70 - 110 mg/dL [facility] Specimen Blood Performing Organization Address [facility] Phone Number [facility] CLIA: [id number], [address] [place] [address] Troponin I (04/10/2019 12:25 AM RESIDENTIAL LEASING MANAGER) TROPONIN I 0.003 <=0.034 ng/mL [facility] Specimen Blood - ARM, LEFT Narrative Performed At Equal or Less than 0.034 ng/ml---Normal [facility] Note: Cardiac troponin begins to rise 3-4 hours after the onset of ischemia. Repeat in 4-6 hours if the sample was drawn within 3-4 hours of the onset of the symptom and found normal. Between 0.035 and 0.120 ng/mL--- Borderline. Questionable myocardial injury or necrosis Note: Serial measurement may be necessary to confirm or exclude the diagnosis of myocardial injury or necrosis; Clinical correlation (symptoms, EKGs, imaging studies, and others) required; Repeat in 4-6 hours if clinically indicated. Equal or Higher than 0.121 ng/mL---Abnormal. Myocardial Injury or Necrosis Likely Biotin has been reported to cause a negative bias, interpret results relative to patient's use of biotin. Performing Organization Address [facility] Phone Number [facility] CLIA: [id number], [address] [place] [id number] [place] [address] IRON PANEL (04/10/2019 12:25 AM RESIDENTIAL LEASING MANAGER) [facility] IRON 51 50 - 160 ug/dL [facility] TIBC 343 250 - 410 ug/dL [facility] % FE SAT 15 (L) 20 - 50 % [facility] Specimen Blood - ARM, LEFT Performing Organization Address [place] Phone Number [facility] CLIA: [id number], [address] [place] [address] Prepare Packed RBC (in units), 1 Units (04/09/2019 8:33 PM RESIDENTIAL LEASING MANAGER) [facility] Cross Match Result Compatible LAB ISBT Blood Type Code 5100 LAB Unit Blood Type O Pos LAB Unit Number [id number] LAB Blood Expiration Date & LAB Time Status Information Issued LAB Product Identification Red Blood Cells LAB Product Code [id number] LAB Comment: Performed at [facility] Laboratory Services - [facility] Blood [facility] [address] [place] [phone] Toll Free: [phone] CLIA No. [id number] Specimen Performing Organization Address [facility] Phone Number BLD LAB POCT GLUCOSE (AUTOMATED) (04/09/2019 7:37 PM RESIDENTIAL LEASING MANAGER) [facility] POCT GLU 250 (H) 70 - 110 mg/dL [facility] Specimen Blood Performing Organization Address [facility]/Zipcode Phone Number [facility] CLIA: [id number], [address] [place] [address] POCT GLUCOSE (AUTOMATED) (04/09/2019 5:29 PM RESIDENTIAL LEASING MANAGER) POCT GLU 154 (H) 70 - 110 mg/dL [facility] Specimen Blood Performing Organization Address [facility] Phone Number [facility] CLIA: [id number], [address] [place] [address] MAGNESIUM (04/09/2019 5:14 PM RESIDENTIAL LEASING MANAGER) MAGNESIUM 2.0 1.7 - 2.4 mg/dL [facility] Specimen Blood - HAND, RIGHT Performing Organization Address [facility] Phone Number [facility] CLIA: [id number], [address] [place] [address] Troponin I (04/09/2019 5:14 PM RESIDENTIAL LEASING MANAGER) TROPONIN I 0.003 <=0.034 ng/mL [facility] Specimen Blood - HAND, RIGHT Narrative Performed At Equal or Less than 0.034 ng/ml---Normal [facility] Note: Cardiac troponin begins to rise 3-4 hours after the onset of ischemia. Repeat in 4-6 hours if the sample was drawn within 3-4 hours of the onset of the symptom and found normal. Between 0.035 and 0.120 ng/mL--- Borderline. Questionable myocardial injury or necrosis Note: Serial measurement may be necessary to confirm or exclude the diagnosis of myocardial injury or necrosis; Clinical correlation (symptoms, EKGs, imaging studies, and others) required; Repeat in 4-6 hours if clinically indicated. Equal or Higher than 0.121 ng/mL---Abnormal. Myocardial Injury or Necrosis Likely Biotin has been reported to cause a negative bias, interpret results relative to patient's use of biotin. Performing Organization Address [facility] Phone Number [facility] CLIA: [id number], [address] [place] [address] CORTISOL PM SERUM (04/09/2019 5:12 PM RESIDENTIAL LEASING MANAGER) MATTHIAS PM 8.7 1.7 - 14.0 ug/dL [facility] Specimen Blood Narrative Performed At Biotin has been reported to cause a positive bias, interpret [facility] results relative to patient's use of biotin. Performing Organization Address City/State/Zipcode Phone Number [facility] CLIA: [id number], [address] [place] [address] [phone] [facility] VITAMIN B12, LEVEL (04/09/2019 5:12 PM RESIDENTIAL LEASING MANAGER) VIT B12 726 240 - 930 pg/mL [facility] Specimen Blood Narrative Performed At Biotin has been reported to cause a positive bias, interpret [facility] results relative to patient's use of biotin. Performing Organization Address City/State/Zipcode Phone Number [facility] CLIA: [id number], [address] [place] [address] [phone] [facility] BODY FLUID MANUAL DIFF (04/09/2019 4:16 PM RESIDENTIAL LEASING MANAGER) BF SEGS 19Comment: Previous % [facility] preliminary verified SERVICES result was 36 % on 04/09/2019 at 1920 RESIDENTIAL LEASING MANAGER BF LYMPHS 9Comment: Previous % [facility] preliminary verified SERVICES result was 29 % on 04/09/2019 at 1920 RESIDENTIAL LEASING MANAGER MACROPHAGE 70Comment: Previous % [facility] preliminary verified SERVICES result was 28 % on 04/09/2019 at 1920 RESIDENTIAL LEASING MANAGER MESOS 1Comment: Previous % [facility] preliminary verified SERVICES result was 7 % on 04/09/2019 at 1920 RESIDENTIAL LEASING MANAGER BF EOS 1 % [facility] #CELS CNTD 100 [facility] Specimen Fluid - ASCITES Narrative Performed At Erythrophages observed. [facility] Performing Organization Address City/State/Zipcode Phone Number [facility] CLIA: [id number], [address] [place] [address] [facility] BODY FLUID DIRECT COUNT (04/09/2019 4:16 PM RESIDENTIAL LEASING MANAGER) BF COLOR Clear [facility] BF WBC Count 113 /L [facility] BF RBC Count 187 /L [facility] Specimen Fluid - ASCITES Narrative Performed At The reference range and other method performance [facility] specifications have not been established for this body fluid. The test results must be integrated into the clinical context for interpretation. Performing Organization Address City/State/Zipcode Phone Number [facility] CLIA: [id number], [address] [place] [address] [facility] ALBUMIN BODY FLUID (04/09/2019 4:16 PM RESIDENTIAL LEASING MANAGER) ALBUMIN BF 331.0 mg/dL [facility] Specimen Cerebrospinal Fluid - ASCITES Narrative Performed At Result interpreted relative to the serum concentration. [facility] Performing Organization Address [facility] Phone Number [facility] CLIA: [id number], [address] [place] [address] [phone] [facility] T.PROTEIN BODY FLUID (04/09/2019 4:16 PM RESIDENTIAL LEASING MANAGER) Pathologist [facility] T.PROT BF <10.0 mg/dL [facility] UNSPUN BODY FLUID Light Yellow [facility] COLOR SERVICES UNSPUN BODY FLUID Clear [facility] CLARITY SERVICES SPUN BODY FLUID Light Yellow [facility] COLOR SERVICES SPUN BODY FLUID Clear [facility] CLARITY SERVICES Sediment Comment: The [facility] sediment volume SERVICES is < 0.01 mLs of the total fluid volume of 10 mLs and its color is red. Specimen Fluid - ASCITES Narrative Performed At Test developed and characteristics determined by [facility] Laboratory Services. Performing Organization Address [facility] Phone Number [facility] CLIA: [id number], [address] [place] [address] [phone] [facility] BODY FLUID CULTURE(AEROBIC/ANAEROBIC) (04/09/2019 4:16 PM RESIDENTIAL LEASING MANAGER) Pathologist [facility] BODY FLUID CULT No organisms [facility] isolated SERVICES Gram stain No Organisms seen [facility] Gram stain Few PMNs or [facility] Mononuclear cells SERVICES observed Specimen Fluid - PERITONEUM Performing Organization Address City/State/Zipcode Phone Number [facility] CLIA: [id number], [address] [place] [phone] [facility] Type and Screen - ONCE STAT (04/09/2019 1:07 PM RESIDENTIAL LEASING MANAGER) Pathologist [facility] ABO & RH O Positive LAB Comment: Performed at [facility] Laboratory Services - [facility] [address] [place] [phone] Toll Free: [phone] CLIA No. [id number] IAT Negative LAB Comment: Performed at [facility] Laboratory Services - [facility] [address] [place] [phone] Toll Free: [phone] CLIA No. [id number] Specimen Blood - VENOUS Performing Organization Address City/State/Zipcode Phone Number BLD LAB CT ABDOMEN PELVIS W CONTRAST (04/09/2019 12:04 PM RESIDENTIAL LEASING MANAGER) Specimen Narrative Performed At CT Abdomen and Pelvis with intravenous contrast. PACS/VR/DOSE CLINICAL HISTORY: Abdominal distention and acute generalized pain. DOSE: Up-to-date CT equipment and radiation dose reduction techniques were employed. CTDIvol: 7.59 mGy. DLP: 431 mGy-cm. TECHNIQUE : Contiguous axial imaging from the level of the lung bases through the pubic symphysis were performed after the uncomplicated administration of Omnipaque contrast material. Coronal and sagittal reconstructions were obtained. Auto mA and/or iterative reconstruction were used to reduce radiation dose. FINDINGS: Lower lungs: Minimal fibrosis in the right lower lung. No pleural effusion or pericardial effusion. Short sliding hiatal hernia. Liver, Gallbladder and Spleen: Liver is approximately 12.4 cm and spleen is moderately enlarged, measuring 17 x 7.2 cm. Mild hepatic steatosis is noted. Evidence of portal hypertension noted with dilated portal venous system and mild varus is in the fundus of the stomach and lower esophagus. S/P cholecystectomy. Biliary ducts and the pancreatic duct appear of normal size. Peritoneum: No free air. No lymphadenopathy. Moderate volume ascites noted with free fluid surrounding the liver, spleen, bowel loops, in the pelvis as well as surrounding the umbilicus. Pancreas and Adrenals: Unremarkable pancreas and adrenal glands. Kidneys and Ureters: No visible calculi in the renal collecting systems. No hydroureter or hydronephrosis. Vessels: Unremarkable. Retroperitoneum: No abnormal fluid. Slightly enlarged lymph nodes are seen in the left side of the retroperitoneum adjacent to the aorta slightly below the level of left renal vein, unchanged when compared with MRI study of September 2018. Bowel: Mild constipation. Bladder and Reproductive Organs: Thickened bladder wylie could be due to incomplete luminal distention. Uterus is bulky without any other abnormalities. No worrisome adnexal pathology. Bones: Metallic hardware in right femur. Old fracture of upper T7 which has lost more than 50% of its height. Minimal old fracture deformity also noted in T11. Soft tissues: Congested. CONCLUSION: 1. Moderate volume ascites, likely secondary to chronic liver disease with portal hypertension causing splenomegaly as well as a small varices in the stomach and lower esophagus. Portal vein is patent. There is slight increase in the volume of ascites when compared with MRI study of September 2018. 2. S/P cholecystectomy. Procedure Note [facility], Radiant Results Inft User - 04/09/2019 12:17 PM RESIDENTIAL LEASING MANAGER CT Abdomen and Pelvis with intravenous contrast. CLINICAL HISTORY: Abdominal distention and acute generalized pain. DOSE: Up-to-date CT equipment and radiation dose reduction techniques were employed. CTDIvol: 7.59 mGy. DLP: 431 mGy-cm. TECHNIQUE : Contiguous axial imaging from the level of the lung bases through the pubic symphysis were performed after the uncomplicated administration of Omnipaque contrast material. Coronal and sagittal reconstructions were obtained. Auto mA and/or iterative reconstruction were used to reduce radiation dose. FINDINGS: Lower lungs: Minimal fibrosis in the right lower lung. No pleural effusion or pericardial effusion. Short sliding hiatal hernia. Liver, Gallbladder and Spleen: Liver is approximately 12.4 cm and spleen is moderately enlarged, measuring 17 x 7.2 cm. Mild hepatic steatosis is noted. Evidence of portal hypertension noted with dilated portal venous system and mild varus is in the fundus of the stomach and lower esophagus. S/P cholecystectomy. Biliary ducts and the pancreatic duct appear of normal size. Peritoneum: No free air. No lymphadenopathy. Moderate volume ascites noted with free fluid surrounding the liver, spleen, bowel loops, in the pelvis as well as surrounding the umbilicus. Pancreas and Adrenals: Unremarkable pancreas and adrenal glands. Kidneys and Ureters: No visible calculi in the renal collecting systems. No hydroureter or hydronephrosis. Vessels: Unremarkable. Retroperitoneum: No abnormal fluid. Slightly enlarged lymph nodes are seen in the left side of the retroperitoneum adjacent to the aorta slightly below the level of left renal vein, unchanged when compared with MRI study of September 2018. Bowel: Mild constipation. Bladder and Reproductive Organs: Thickened bladder wylie could be due to incomplete luminal distention. Uterus is bulky without any other abnormalities. No worrisome adnexal pathology. Bones: Metallic hardware in right femur. Old fracture of upper T7 which has lost more than 50% of its height. Minimal old fracture deformity also noted in T11. Soft tissues: Congested. CONCLUSION: 1. Moderate volume ascites, likely secondary to chronic liver disease with portal hypertension causing splenomegaly as well as a small varices in the stomach and lower esophagus. Portal vein is patent. There is slight increase in the volume of ascites when compared with MRI study of September 2018. 2. S/P cholecystectomy. Performing Organization Address City/State/Zipcode Phone Number PACS/VR/DOSE XR CHEST 2 VW (04/09/2019 11:42 AM RESIDENTIAL LEASING MANAGER) Specimen Narrative Performed At HISTORY: Chest pain with SOB. PACS/VR/DOSE TECHNIQUE: 2 PA and one lateral views of the chest are obtained. Comparison made with 06/14/2017 study. FINDINGS: Poor respiratory effort as shown by the patient in all views, likely the cause of accentuation of bronchovascular markings in the lower lungs. No acute pneumonia. No pneumothorax or pleural effusion or pulmonary congestion and cardiomegaly detected. Cholecystectomy clips are seen in the right upper abdomen. CONCLUSIONS: No definite signs of acute cardiopulmonary disease. Procedure Note [facility], Radiant Results Inft User - 04/09/2019 11:53 AM RESIDENTIAL LEASING MANAGER HISTORY: Chest pain with SOB. TECHNIQUE: 2 PA and one lateral views of the chest are obtained. Comparison made with 06/14/2017 study. FINDINGS: Poor respiratory effort as shown by the patient in all views, likely the cause of accentuation of bronchovascular markings in the lower lungs. No acute pneumonia. No pneumothorax or pleural effusion or pulmonary congestion and cardiomegaly detected. Cholecystectomy clips are seen in the right upper abdomen. CONCLUSIONS: No definite signs of acute cardiopulmonary disease. Performing Organization Address [facility] Phone Number PACS/VR/DOSE Prothrombin Time (PT) / INR (04/09/2019 11:24 AM RESIDENTIAL LEASING MANAGER) PROTIME PATIENT 13.4 12.0 - 14.7 [facility] LABORATORY INR 1.1Comment: Normal [facility] INR <1.1; [facility] HOSPITAL Therapeutic range LABORATORY 2.0 to 3.0 or 2.5 to 3.5, depending upon the indications. Specimen Blood - VENOUS Performing Organization Address City/State/Zipcode Phone Number [facility] CLIA: [id number], [address] [place] [address] aPTT (04/09/2019 11:24 AM RESIDENTIAL LEASING MANAGER) APTT Patient 33 23 - 38 Seconds [facility] Specimen Blood - VENOUS Narrative Performed At The [facility] patient population mean normal value [facility] for aPTT is 30 seconds. Performing Organization Address [facility] Phone Number [facility] CLIA: [id number], [address] [place] [address] POCT TEST (04/09/2019 11:04 AM RESIDENTIAL LEASING MANAGER) Pathologist [facility] POCT PREG negative On board controls acceptable present with C Line POCT PREG LOT # [id number] POCT PREG TEST DATE 312,020 Specimen Urine - URINE, CLEAN CATCH N-TERMINAL PRO-BNP (04/09/2019 11:03 AM RESIDENTIAL LEASING MANAGER) [facility] NT-proBNP 414 (H) <=125 pg/mL [facility] Specimen Blood - VENOUS Narrative Performed At Biotin has been reported to cause a negative [facility] bias, interpret results relative to patient's use of biotin. Performing Organization Address City/[facility] Phone Number [facility] CLIA: [id number], [address] [place] [address] GLYCOSYLATED HEMOGLOBIN (A1C) (04/09/2019 11:03 AM RESIDENTIAL LEASING MANAGER) Pathologist [facility] HGB A1C 11.9 (H) 4.0 - 6.0 % NGSP [facility] Specimen Blood - VENOUS Narrative Performed At %A1C (NGSP) Interpretation (ADA) [facility] 4.8-5.6 Normal or (Non-Diabetic Range) 5.7-6.4 Increased Risk (Pre-Diabetic) >6.5 Diabetes Indicated Performing Organization Address City/[facility] Phone Number [facility] CLIA: [id number], [address] [place] [address] FERRITIN SERUM (04/09/2019 11:03 AM RESIDENTIAL LEASING MANAGER) Pathologist [facility] FERRITIN 18.5 6.0 - 137.0 ng/mL [facility] Specimen Blood - VENOUS Narrative Performed At Biotin has been reported to cause a negative [facility] bias, interpret results relative to patient's use of biotin. Performing Organization Address City/[facility] Phone Number [facility] CLIA: [id number], [address] [place] [address] [address] [address] THYROID STIMULATING HORMONE (04/09/2019 11:03 AM RESIDENTIAL LEASING MANAGER) TSH 1.72Comment: Biotin 0.45 - 4.70 [facility] has been reported [facility] to cause a negative bias, interpret results relative to patient's use of biotin. Specimen Blood - VENOUS Performing Organization Address City/[facility]/Zipcode Phone Number [facility] CLIA: [id number], [address] [place] [address] Phosphorus Serum (04/09/2019 11:03 AM RESIDENTIAL LEASING MANAGER) PHOSPHORUS 2.7 2.5 - 5.0 mg/dL [facility] Specimen Blood - VENOUS Performing Organization Address [facility] Phone Number [facility] CLIA: [id number], [address] [place] [address] Magnesium Serum (04/09/2019 11:03 AM RESIDENTIAL LEASING MANAGER) MAGNESIUM 2.0 1.7 - 2.4 mg/dL [facility] Specimen Blood - VENOUS Performing Organization Address City/[facility] Phone Number [facility] CLIA: [id number], [address] [place], [place] [address] LAB[address] TROPONIN I (04/09/2019 11:03 AM RESIDENTIAL LEASING MANAGER) TROPONIN I 0.004 <=0.034 ng/mL [facility] Specimen Blood - VENOUS Narrative Performed At Equal or Less than 0.034 ng/ml---Normal [facility] Note: Cardiac troponin begins to rise 3-4 hours after the onset of ischemia. Repeat in 4-6 hours if the sample was drawn within 3-4 hours of the onset of the symptom and found normal. Between 0.035 and 0.120 ng/mL--- Borderline. Questionable myocardial injury or necrosis Note: Serial measurement may be necessary to confirm or exclude the diagnosis of myocardial injury or necrosis; Clinical correlation (symptoms, EKGs, imaging studies, and others) required; Repeat in 4-6 hours if clinically indicated. Equal or Higher than 0.121 ng/mL---Abnormal. Myocardial Injury or Necrosis Likely Biotin has been reported to cause a negative bias, interpret results relative to patient's use of biotin. Performing Organization Address [facility] Phone Number [facility] CLIA: [id number], [address] [place], [place] [address] LABORAT[address] URINALYSIS (04/09/2019 11:03 AM RESIDENTIAL LEASING MANAGER) APPEARANCE Cloudy (A) Clear [facility] COLOR Yellow Yellow [facility] PH 6.0 4.8 - 8.0 [facility] SP GRAVITY 1.016 1.003 - 1.030 [facility] GLU U QUAL 50 mg/dL (A) Normal [facility] BLOOD 1+ (A) Negative [facility] KETONES Negative Negative [facility] PROTEIN Negative Negative [facility] UROBILIN 4.0 mg/dL (A) Normal [facility] BILIRUBIN Negative Negative [facility] NITRITE Positive (A) Negative [facility] LEUK KELLIE 500/uL (A) Negative [facility] RBC/HPF 9 (H) 0 - 3 HPF [facility] WBC/HPF >182 (H) 0 - 5 HPF [facility] BACTERIA Many (A) Negative [facility] MUCOUS Slight (A) Negative LPF [facility] SQ EPITH 19 HPF [facility] WBC CLUMPS 10 (H) <=1 HPF [facility] Specimen Urine - URINE, CLEAN CATCH Performing Organization Address [facility]/Zipcode Phone Number [facility] CLIA: [id number], [address] [place] [address] CBC WITH DIFFERENTIAL (04/09/2019 11:03 AM RESIDENTIAL LEASING MANAGER) WBC 6.27 4.30 - 11.10 [facility] 10*3/L [facility] LAB[facility] RBC 2.65 (L) 3.93 - 5.25 [facility] 10*6/L [facility] HGB 6.9 (L) 11.6 - 15.0 [facility] g/dL [facility] HCT 23.1 (L) 35.7 - 45.2 % [facility] MCV 87.2 80.6 - 95.5 [facility] fL [facility] MCH 26.0 25.9 - 32.8 [facility] pg [facility] MCHC 29.9 (L) 31.6 - 35.1 [facility] g/dL [facility] RDW-SD 44.5 39.0 - 49.9 [facility] LABORATORY RDW-CV 14.4 12.0 - 15.5 % [facility] PLT 106 (L) 166 - 358 [facility] 10*3/L [facility] MPV 11.2 9.5 - 12.9 fL [facility] IPF % 3.1Comment: Platelet 1.3 - 7.7 % [facility] count measured by HOSPITAL fluorescence method. LABORATORY NRBC/100 WBC 0.0 0.0 - 10.0 [facility] /100 WBCs [facility] NRBC x10^3 <0.01 10*3/L [facility] GRAN MAT (NEUT) % 72.5 % [facility] IMM GRAN % 0.20 % [facility] LYMPH % 14.8 % [facility] MONO % 9.4 % [facility] EOS % 2.9 % [facility] BASO % 0.2 % [facility] GRAN MAT 4.55 1.88 - 7.09 [facility] x10^3(ANC) 10*3/uL [facility] IMM GRAN x10^3 <0.03 0.00 - 0.06 [facility] 10*3/uL [facility] LYMPH x10^3 0.93 (L) 1.32 - 3.29 [facility] 10*3/uL [facility] MONO x10^3 0.59 0.33 - 0.92 [facility] 10*3/uL [facility] EOS x10^3 0.18 0.03 - 0.39 [facility] 10*3/uL [facility] BASO x10^3 <0.03 0.01 - 0.07 [facility] 10*3/uL [facility] Specimen Blood - VENOUS Performing Organization Address City/State/Zipcode Phone Number [facility] CLIA: [id number], [address] [place] [address] LIPASE (04/09/2019 11:03 AM RESIDENTIAL LEASING MANAGER) LIPASE 131 0 - 220 U/L [facility] Specimen Blood - VENOUS Performing Organization Address City/State/Zipcode Phone Number [facility] CLIA: [id number], [address] [place] [address] LABORATORY [facility] COMP. METABOLIC PANEL (59541) (04/09/2019 11:03 AM RESIDENTIAL LEASING MANAGER) NA 137 135 - 145 [facility] mmol/L [facility] K 4.1 3.5 - 5.0 [facility] mmol/L [facility] CL 103 98 - 108 mmol/L [facility] CO2 TOTAL 27 23 - 31 mmol/L [facility] AGAP 7 2 - 16 [facility] BUN 24 (H) 7 - 23 mg/dL [facility] GLUCOSE 218 (H) 70 - 110 mg/dL [facility] CREATININE 0.82 0.50 - 1.04 [facility] mg/dL [facility] TOTAL BILI 1.0 0.1 - 1.1 mg/dL [facility] CALCIUM 8.6 8.6 - 10.6 [facility] mg/dL [facility] T PROTEIN 8.0 6.3 - 8.2 g/dL [facility] ALBUMIN 3.4 (L) 3.5 - 5.0 g/dL [facility] ALK PHOS 413 (H) 34 - 122 U/L [facility] ALTv 18 5 - 35 U/L [facility] AST(SGOT) 36 13 - 40 U/L [facility] eGFR Calculation 75.7 mL/min/1.73m2 [facility] (Non-[facility] LABORATORY [place]) eGFR Calculation 91.8 mL/min/1.73m2 [facility] () [facility] Specimen Blood - VENOUS Narrative Performed At Association of Glomerular Filtration Rate (GFR) [facility] and Staging of Kidney Disease* + + +- + | GFR (mL/min/1.73 m2) | With Kidney Damage | Without Kidney Damage + + +- + | >90 | Stage one | Normal + + +- + | 60-89 | Stage two | Decreased GFR + + +- + | 30-59 | Stage three | Stage three + + +- + | 15-29 | Stage four | Stage four + + +- + | <15 (or dialysis) | Stage five | Stage five + + +- + *Each stage assumes the associated GFR level has been in effect for at least three months. Stages 1 to 5, with or without kidney disease, indicate chronic kidney disease. Notes: Determination of stages one and two (with eGFR >59mL/min/1.73 m2) requires estimation of kidney damage for at least three months as defined by structural or functional abnormalities of the kidney, manifested by either: Pathological abnormalities or Markers of kidney damage (including abnormalities in the composition of the blood or urine or abnormalities in imaging tests). Performing Organization Address City/State/Zipcode Phone Number [facility] CLIA: [id number], [address] [place] [address] POCT GLUCOSE (AUTOMATED) (04/09/2019 10:58 AM RESIDENTIAL LEASING MANAGER) POCT GLU 246 (H) 70 - 110 mg/dL [facility] Specimen Blood Performing Organization Address [facility] Phone Number [facility] CLIA: [id number], [address] [place] [address] documented in this encounter Visit Diagnoses Diagnosis Decompensated hepatic cirrhosis - Primary Generalized abdominal pain Abdominal pain, generalized Chest pain in adult Right leg pain Pain in limb Acute lower UTI Urinary tract infection, site not specified Ascites of liver Other ascites Anemia, unspecified type Odynophagia Dysphagia, unspecified SOB (shortness of breath) Shortness of breath Globus sensation Gastrointestinal malfunction arising from mental factors Hypoxia Hypoxemia Community acquired pneumonia of left lower lobe of lung Type 2 diabetes mellitus without complication, unspecified whether residential insulin use documented in this encounter Administered Medications Medication Order MAR Action Action Date Dose Rate Site acetaminophen (TYLENOL) tablet 650 mg 650 mg, Oral, Q6HPRN, Starting 04/13/19 at 0305, Until Discontinued, Routine , Temp > 38.5 C FLUoxetine (PROZAC) capsule 20 mg Given 04/17/2019 7:59 AM RESIDENTIAL LEASING MANAGER 20 mg 20 mg, Oral, DAILY, First dose on Kellen 04/10/19 at 0900, Until Discontinued, Routine Given 04/16/2019 8:53 AM RESIDENTIAL LEASING MANAGER 20 mg Given 04/15/2019 8:33 AM RESIDENTIAL LEASING MANAGER 20 mg fluticasone propionate 50 mcg/actuation Given 04/17/2019 8:00 AM RESIDENTIAL LEASING MANAGER 1 [place] nasal spray 1 [place] 1 [place], Nasal, DAILY, First dose on Sun04/15/19 at 0900, Until Discontinued, Routine Given 04/16/2019 8:53 AM RESIDENTIAL LEASING MANAGER 1 [place] furosemide (LASIX) tablet 40 mg Given 04/17/2019 7:59 AM RESIDENTIAL LEASING MANAGER 40 mg 40 mg, Oral, DAILY, First dose on Sun04/14/19 at 0900, Until Discontinued, Routine Given 04/16/2019 8:53 AM RESIDENTIAL LEASING MANAGER 40 mg Given 04/15/2019 8:33 AM RESIDENTIAL LEASING MANAGER 40 mg gabapentin (NEURONTIN) tablet 600 mg Given 04/17/2019 7:59 AM RESIDENTIAL LEASING MANAGER 600 mg 600 mg, Oral, BID, First dose on Sun04/09/19 at 2000, Until Discontinued, Routine Given 04/16/2019 8:18 PM RESIDENTIAL LEASING MANAGER 600 mg Given 04/16/2019 8:53 AM RESIDENTIAL LEASING MANAGER 600 mg guaiFENesin 100 mg/5 mL solution 200 mg Given 04/16/2019 8:29 PM RESIDENTIAL LEASING MANAGER 200 mg 200 mg, Oral, Q4HPRN, Starting Sun04/16/19 at 1236, Until Discontinued, Routine, Cough heparin (porcine) injection Given 04/17/2019 7:59 AM RESIDENTIAL LEASING MANAGER 5,000 Units Abdomen-SC 5,000 Units 5,000 Units, Subcutaneous, Q12H, First dose on 04/12/19 at 2000, Until Discontinued, Routine Given 04/16/2019 8:19 PM RESIDENTIAL LEASING MANAGER 5,000 Units Abdomen-SC Given 04/16/2019 8:53 AM RESIDENTIAL LEASING MANAGER 5,000 Units Abdomen-SC HYDROcodone-acetaminophen (NORCO 5) 5-325 Given 04/17/2019 2:38 PM RESIDENTIAL LEASING MANAGER 1 tablet mg tablet 1 tablet 1 tablet, Oral, Q6HPRN, Starting 04/12/19 at 0017, Until Discontinued, Routine, Pain (scale 4-6), Pain (scale 7-10) Given 04/17/2019 7:59 AM RESIDENTIAL LEASING MANAGER 1 tablet Given 04/16/2019 9:52 PM RESIDENTIAL LEASING MANAGER 1 tablet insulin glargine (LANTUS Given 04/16/2019 11:17 PM RESIDENTIAL LEASING MANAGER 10 Units Right Upper Arm-SC U-100) injection 10 Units 10 Units, Subcutaneous, QHS, First dose on 04/13/19 at 2100, Until Discontinued, Routine Given 04/15/2019 10:03 PM RESIDENTIAL LEASING MANAGER 10 Units Abdomen-SC Given 04/14/2019 9:19 PM RESIDENTIAL LEASING MANAGER 10 Units Abdomen-SC ipratropium-albuterol (DUONEB) 0.5 mg-3 mg(2.5 Given 04/17/2019 2:49 PM RESIDENTIAL LEASING MANAGER 3 mL mg base)/3 mL nebulizer solution 3 mL 3 mL, Inhalation, QID, First dose on Sun04/16/19 at 0800, Until Discontinued, Routine Given 04/17/2019 10:28 AM RESIDENTIAL LEASING MANAGER 3 mL Given 04/17/2019 7:13 AM RESIDENTIAL LEASING MANAGER 3 mL lactulose (CEPHULAC) solution 30 mL 30 mL, Oral, TIDPRN, Starting Sun04/16/19 at 0800, Until Discontinued, Routine , Constipation levoFLOXacin (LEVAQUIN) tablet 750 mg Given 04/17/2019 12:57 PM RESIDENTIAL LEASING MANAGER 750 mg 750 mg, Oral, Q24H ABX, First dose on Kellen 04/17/19 at 1315, Until Discontinued, ADEEL, Reason for Anti-Infective: Empiric Therapy for Suspected Infection, Empiric Therapy Site: Respiratory, Duration of therapy: 72 hours lidocaine 2% viscous (LIDOCAINE VISCOUS) 2 % Given 04/14/2019 8:24 AM RESIDENTIAL LEASING MANAGER 15 mL solution 15 mL 15 mL, Oral, Q4HPRN, Starting 04/12/19 at 1734, Until Discontinued, Routine, pain with swallowing Given 04/13/2019 3:31 AM RESIDENTIAL LEASING MANAGER 15 mL ondansetron (ZOFRAN (PF)) injection 4 mg Given 04/15/2019 8:01 PM RESIDENTIAL LEASING MANAGER 4 mg 4 mg, Slow IV Push, Q6HPRN, Starting Sun04/09/19 at 1510, Until Discontinued, Routine, Nausea and Vomiting (N/V) Given 04/13/2019 11:29 PM RESIDENTIAL LEASING MANAGER 4 mg Given 04/12/2019 9:46 AM RESIDENTIAL LEASING MANAGER 4 mg pantoprazole (PROTONIX) 40 mg in NaCl 0.9% Given 04/17/2019 7:59 AM RESIDENTIAL LEASING MANAGER 40 mg (NS) 100 mL MINI-BAG 40 mg, IV Piggyback, Q12H, First dose on Sun04/09/19 at 2145, Until Discontinued, 100 mL Given 04/16/2019 8:21 PM RESIDENTIAL LEASING MANAGER 40 mg Given 04/16/2019 8:53 AM RESIDENTIAL LEASING MANAGER 40 mg Sliding Scale Insulin - Aspart Given 04/17/2019 12:58 PM RESIDENTIAL LEASING MANAGER 1 Units Abdomen-SC (NOVOLOG) + Fsbg Testing Subcutaneous, TID MEALS+HS, First dose on Sun04/09/19 at 1700, Until Discontinued, Routine Given 04/17/2019 8:02 AM RESIDENTIAL LEASING MANAGER 2 Units Abdomen-SC Given 04/16/2019 11:17 PM RESIDENTIAL LEASING MANAGER 2 Units Right Upper Arm-SC sodium chloride 7% (HYPER-JILL) nebulizer Given 04/17/2019 7:14 AM RESIDENTIAL LEASING MANAGER 4 mL solution 4 mL 4 mL, Inhalation, BID, First dose on Sun04/16/19 at 1100, Until Discontinued, Routine Given 04/16/2019 8:47 PM RESIDENTIAL LEASING MANAGER 4 mL Given 04/16/2019 11:06 AM RESIDENTIAL LEASING MANAGER 4 mL spironolactone (ALDACTONE) tablet 100 mg Given 04/17/2019 7:59 AM RESIDENTIAL LEASING MANAGER 100 mg 100 mg, Oral, DAILY, First dose on Sun04/14/19 at 0900, Until Discontinued, Routine Given 04/16/2019 8:52 AM RESIDENTIAL LEASING MANAGER 100 mg Given 04/15/2019 8:33 AM RESIDENTIAL LEASING MANAGER 100 mg Medication Order MAR Action Action Date Dose Rate Site albumin (PLASBUMIN) 25 % injection Given 04/10/2019 10:02 AM RESIDENTIAL LEASING MANAGER 25 g 25 g 25 g, IV Infusion, ONCE, 1 dose, [facility] 04/10/19 at 1000, 100 mL, Indication: SHOCK/IMPENDING SHOCK amitriptyline (ELAVIL) tablet 100 mg Given 04/09/2019 8:00 PM RESIDENTIAL LEASING MANAGER 100 mg 100 mg, Oral, QHS, First dose on Sun04/09/19 at 2100, Until Discontinued, Routine barium sulfate (LIQUID E-Z PAQUE) 60 % (w/v) Given 04/14/2019 3:40 PM RESIDENTIAL LEASING MANAGER 40 mL oral suspension 40 mL 40 mL, Oral, ONCE, 1 dose, Sun04/14/19 at 1545, Routine barium sulfate (LIQUID E-Z PAQUE) 60 % (w/v) Given 04/14/2019 3:40 PM RESIDENTIAL LEASING MANAGER 40 mL oral suspension 40 mL 40 mL, Oral, ONCE, 1 dose, Sun04/14/19 at 1545, Routine barium sulfate-NO CHARGE- (VARIBAR NECTOR) 40 Given 04/14/2019 3:45 PM RESIDENTIAL LEASING MANAGER 10 mL % (w/v) oral suspension 10 mL 10 mL, Oral, ONCE, 1 dose, Sun04/14/19 at 1745, Routine barium sulfate-NO CHARGE- (VARIBAR PUDDING) Given 04/14/2019 3:45 PM RESIDENTIAL LEASING MANAGER 10 mL 40 % (w/v), 30% (w/w) oral paste 10 mL 10 mL, Oral, ONCE, 1 dose, Sun04/14/19 at 1745, Routine cefTRIAXone (ROCEPHIN) 1,000 mg in NaCl Given 04/15/2019 5:30 PM RESIDENTIAL LEASING MANAGER 1,000 mg 0.9% (NS) 50 mL MINI-BAG 1,000 mg, IV Piggyback, Q24H ABX, First dose on Sun04/13/19 at 1800, Until Discontinued, 50 mL, Reason for Anti-Infective: Empiric Therapy for Suspected Infection, Empiric Therapy Site: Respiratory, Duration of therapy: 7 days Given 04/14/2019 5:29 PM RESIDENTIAL LEASING MANAGER 1,000 mg Given 04/13/2019 6:33 PM RESIDENTIAL LEASING MANAGER 1,000 mg ciprofloxacin HCl (CIPRO) tablet 500 mg Given 04/11/2019 8:24 PM RESIDENTIAL LEASING MANAGER 500 mg 500 mg, Oral, Q12H, First dose on Sun04/10/19 at 2000, Until Discontinued, ADEEL, Reason for Anti-Infective: Empiric Therapy for Suspected Infection, Empiric Therapy Site: Abdominal, Duration of therapy: 72 hours Given 04/11/2019 8:24 AM RESIDENTIAL LEASING MANAGER 500 mg Given 04/10/2019 9:16 PM RESIDENTIAL LEASING MANAGER 500 mg ciprofloxacin in 5 % dextrose (CIPRO) Given 04/10/2019 5:17 AM RESIDENTIAL LEASING MANAGER 400 mg piggyback 400 mg 400 mg, IV Piggyback, Administer over 60 Minutes, Q12H ABX, First dose on Sun04/09/19 at 1645, Until Discontinued, ADEEL, Reason for Anti-Infective: Documented Infection, Documented Infection Site: Urine, Duration of Therapy: 7 days Given 04/09/2019 6:25 PM RESIDENTIAL LEASING MANAGER 400 mg docusate (COLACE) capsule 100 mg Given 04/12/2019 8:59 AM RESIDENTIAL LEASING MANAGER 100 mg 100 mg, Oral, DAILY, First dose on Sun04/10/19 at 0900, Until Discontinued, Routine Given 04/11/2019 8:25 AM RESIDENTIAL LEASING MANAGER 100 mg Given 04/10/2019 8:21 AM RESIDENTIAL LEASING MANAGER 100 mg ferrous sulfate tablet 325 mg Given 04/10/2019 8:21 AM RESIDENTIAL LEASING MANAGER 325 mg 325 mg, Oral, DAILY, First dose on Sun04/10/19 at 0900, Until Discontinued, Routine flu vaccine 6 months and Given 04/17/2019 4:58 PM 0.5 mL Left Vastus up (FLUZONE QUAD RESIDENTIAL LEASING MANAGER Lateralis-IM (PF)) syringe 0.5 mL 0.5 mL, Intramuscular, ONCE, 1 dose, Kellen 04/17/19 at 1800, Routine furosemide (LASIX) tablet 40 mg Given 04/09/2019 10:36 PM RESIDENTIAL LEASING MANAGER 40 mg 40 mg, Oral, DAILY, First dose on Sun04/09/19 at 2130, Until Discontinued, Routine furosemide (LASIX) tablet 40 mg Given 04/13/2019 4:23 AM RESIDENTIAL LEASING MANAGER 40 mg 40 mg, Oral, ONCE, 1 dose, Mobile 04/13/19 at 0400, ADEEL HYDROcodone-acetaminophen (NORCO 5) 5-325 Given 04/11/2019 11:08 AM RESIDENTIAL LEASING MANAGER 1 tablet mg tablet 1 tablet 1 tablet, Oral, Q6HPRN, Starting Sun04/09/19 at 1509, Until Sun04/11/19 at 1508, Routine, Pain (scale 4-6) Given 04/11/2019 5:42 AM RESIDENTIAL LEASING MANAGER 1 tablet Given 04/10/2019 10:41 PM RESIDENTIAL LEASING MANAGER 1 tablet ibuprofen (MOTRIN IB) tablet 200 mg Given 04/09/2019 10:36 PM RESIDENTIAL LEASING MANAGER 200 mg 200 mg, Oral, Q6HPRN, Starting Sun04/09/19 at 1508, Until Kellen 04/10/19 at 0929, Routine, Pain (scale 1-3) insulin glargine (LANTUS Given 04/12/2019 9:00 PM RESIDENTIAL LEASING MANAGER 20 Units Right Upper Arm-SC U-100) injection 20 Units 20 Units, Subcutaneous, QHS, First dose on Sun04/12/19 at 2100, Until Discontinued, Routine insulin glargine (LANTUS Given 04/11/2019 8:36 PM RESIDENTIAL LEASING MANAGER 21 Units Left Upper Arm-SC U-100) injection 42 Units 42 Units, Subcutaneous, QHS, First dose on Sun04/09/19 at 2100, Until Discontinued, Routine Given 04/10/2019 9:18 PM RESIDENTIAL LEASING MANAGER 42 Units Abdomen-SC Given 04/09/2019 8:03 PM RESIDENTIAL LEASING MANAGER 42 Units Abdomen-SC iohexol (OMNIPAQUE 350 BULK-150 mL) Given 04/09/2019 12:00 PM RESIDENTIAL LEASING MANAGER 120 mL injection 120 mL 120 mL, Intravenous, ONCE, 1 dose, 04/09/19 at 1215, Routine iron dextran (INFED) 1,000 mg in NaCl New Bag 04/12/2019 2:59 AM RESIDENTIAL LEASING MANAGER 1,000 mg 0.9% (NS) 500 mL IV infusion 1,000 mg, IV Infusion, ONCE, 1 dose, 04/12/19 at 0215, 500 mL iron dextran (INFED) 1,000 mg in NaCl New Bag 04/13/2019 7:59 PM RESIDENTIAL LEASING MANAGER 1,000 mg 0.9% (NS) 500 mL IV infusion 1,000 mg, IV Infusion, ONCE, 1 dose, 04/13/19 at 1815, 500 mL iron dextran (INFED) 25 mg in NaCl 0.9% (NS) Given 04/12/2019 2:28 AM RESIDENTIAL LEASING MANAGER 25 mg 100 mL IV piggyback 25 mg, IV Piggyback, ONCE, 1 dose, 04/12/19 at 0215, 100 mL iron dextran (INFED) 25 mg in NaCl 0.9% (NS) Given 04/13/2019 6:33 PM RESIDENTIAL LEASING MANAGER 25 mg 100 mL IV piggyback 25 mg, IV Piggyback, ONCE, 1 dose, 04/13/19 at 1815, 100 mL lactobacillus acidophilus (ACIDOPHILLUS) Given 04/11/2019 8:23 PM RESIDENTIAL LEASING MANAGER 1 tablet 25 million cell -100 mg captab 1 tablet 1 tablet, Oral, BID, First dose on Sun04/09/19 at 2130, Until Discontinued, Routine Given 04/11/2019 8:24 AM RESIDENTIAL LEASING MANAGER 1 tablet Given 04/10/2019 9:10 PM RESIDENTIAL LEASING MANAGER 1 tablet lactulose (CEPHULAC) solution 15 mL Given 04/10/2019 8:22 AM RESIDENTIAL LEASING MANAGER 15 mL 15 mL, Oral, DAILY, First dose on 04/09/19 at 2145, Until Discontinued, Routine Given 04/09/2019 10:36 PM RESIDENTIAL LEASING MANAGER 15 mL lactulose (CEPHULAC) solution 30 mL Given 04/14/2019 8:18 AM RESIDENTIAL LEASING MANAGER 30 mL 30 mL, Oral, TID, First dose on Kellen 04/10/19 at 1000, Until Discontinued, Routine Given 04/13/2019 2:44 PM RESIDENTIAL LEASING MANAGER 30 mL Given 04/12/2019 8:03 PM RESIDENTIAL LEASING MANAGER 30 mL levoFLOXacin in D5W (LEVAQUIN) 500 mg/100 mL Given 04/16/2019 12:34 PM RESIDENTIAL LEASING MANAGER 500 mg Piggyback 500 mg 500 mg, IV Piggyback, Q24H ABX, First dose on Sun04/16/19 at 1200, Until Discontinued, 100 mL, Reason for Anti-Infective: Empiric Therapy for Suspected Infection, Empiric Therapy Site: Respiratory, Duration of therapy: 7 days metroNIDAZOLE (FLAGYL I.V.) Piggyback 500 mg Given 04/16/2019 9:30 AM RESIDENTIAL LEASING MANAGER 500 mg 500 mg, IV Piggyback, Q8H ABX, First dose on Sun04/13/19 at 1815, Until Discontinued, 100 mL, Reason for Anti-Infective: Empiric Therapy for Suspected Infection, Empiric Therapy Site: Respiratory, Duration of therapy: 7 days Given 04/16/2019 2:23 AM RESIDENTIAL LEASING MANAGER 500 mg Given 04/15/2019 5:29 PM RESIDENTIAL LEASING MANAGER 500 mg midodrine (PROAMATINE) tablet 5 mg Given 04/11/2019 8:24 PM RESIDENTIAL LEASING MANAGER 5 mg 5 mg, Oral, BID, First dose on Sun04/09/19 at 2130, Until Discontinued, Routine Given 04/11/2019 8:25 AM RESIDENTIAL LEASING MANAGER 5 mg Given 04/10/2019 9:10 PM RESIDENTIAL LEASING MANAGER 5 mg morpHINE injection 2 mg Given 04/09/2019 1:56 PM RESIDENTIAL LEASING MANAGER 2 mg 2 mg, Slow IV Push, ONCE, 1 dose, Sun04/09/19 at 1445, STAT morpHINE injection 2 mg Given 04/11/2019 8:24 PM RESIDENTIAL LEASING MANAGER 2 mg 2 mg, Slow IV Push, Q4HPRN, Starting Sun04/11/19 at 1950, Until Sun04/11/19 at 2313, Routine, Pain (scale 7-10) morpHINE injection 4 mg Given 04/09/2019 11:35 AM RESIDENTIAL LEASING MANAGER 4 mg 4 mg, Slow IV Push, ONCE, 1 dose, Sun04/09/19 at 1230, STAT NaCl 0.9% (NS) bolus infusion New Bag 04/09/2019 11:34 AM RESIDENTIAL LEASING MANAGER 1,000 mL 999 mL/hr 1,000 mL at 999 mL/hr, 1,000 mL, IV Infusion, ONCE, 1 dose, Sun04/09/19 at 1130, ADEEL NaCl 0.9% (NS) bolus infusion 500 New Bag 04/10/2019 8:51 AM RESIDENTIAL LEASING MANAGER 500 mL 999 mL/hr mL at 999 mL/hr, 500 mL, IV Piggyback, ONCE, 1 dose, Kellen 04/10/19 at 0945, STAT Nitrofurantoin&Nit. Macrocryst (MACROBID) Given 04/09/2019 12:15 PM RESIDENTIAL LEASING MANAGER 100 mg 100 mg capsule 100 mg 100 mg, Oral, ONCE, 1 dose, Sun04/09/19 at 1315, Routine, Reason for Anti-Infective: Documented Infection, Documented Infection Site: Urine, Duration of Therapy: Other (see Comments) ondansetron (ZOFRAN (PF)) injection 4 mg Given 04/09/2019 11:35 AM RESIDENTIAL LEASING MANAGER 4 mg 4 mg, Slow IV Push, ONCE, 1 dose, Sun04/09/19 at 1230, ADEEL pneumococcal vac Given 04/17/2019 5:00 PM 0.5 mL Right Vastus polyvalent (PNEUMOVAX-23) RESIDENTIAL LEASING MANAGER Lateralis-IM injection 0.5 mL 0.5 mL, Intramuscular, ONCE, 1 dose, Kellen 04/17/19 at 1615, Routine propranolol (INDERAL) tablet 10 mg Given 04/09/2019 10:36 PM RESIDENTIAL LEASING MANAGER 10 mg 10 mg, Oral, BID, First dose on Sun04/09/19 at 2130, Until Discontinued, Routine spironolactone (ALDACTONE) tablet 50 mg Given 04/09/2019 10:36 PM RESIDENTIAL LEASING MANAGER 50 mg 50 mg, Oral, BID, First dose on Sun04/09/19 at 2130, Until Discontinued, Routine documented in this encounter
--- OUTSIDE RECORDS SUMMARY | 2019-05-16 17:50 | XMS REPORT | Summary of Care ---
:1975 Author Organization [facility] - [facility] Address [address] [place] [address] Care Team Providers Name Role Phone Petra Huff Primary Care Provider Reason for Visit Reason Comments Transition Of Care Encounter Details Date Type Department Care Team Description 04/18/2019 Transition of Care [facility] Transition Of Care [facility] [address] [place] [address] [id number] Allergies Active Allergy Reactions Severity Noted Date Comments Penicillins Itching, Nausea and/or Vomiting 05/09/2013 documented as of this encounter (statuses as of 04/18/2019) Medications Medication Sig Dispensed Refills Start Date End Date Status FLUoxetine (PROZAC) 40 Take 40 mg by 0 Active mg capsule mouth daily. zolpidem (AMBIEN) 10 mg Take 10 mg by 0 Active tablet mouth at bedtime as needed for Insomnia. metFORMIN (GLUCOPHAGE) Take 1,000 mg 0 Active 1,000 mg tablet by mouth 2 (two) times daily with meals. ferrous sulfate 325 mg Take 1 tablet 30 tablet 2 09/23/2018 Active (65 mg iron) by mouth daily. tabletIndications: Closed fracture of right tibia and fibula, initial encounter propranolol 10 mg Take 1 tablet 60 tablet 2 10/01/2018 Active tabletIndications: by mouth 2 Gastrointestinal (two) times hemorrhage, unspecified daily. gastrointestinal hemorrhage type, Melena spironolactone 100 mg Take 1 tablet 30 tablet 2 10/02/2018 Active tabletIndications: by mouth daily. Gastrointestinal hemorrhage, unspecified gastrointestinal hemorrhage type, Melena furosemide 40 mg Take 1 tablet 30 tablet 2 10/02/2018 Active tabletIndications: by mouth daily. Gastrointestinal hemorrhage, unspecified gastrointestinal hemorrhage type, Melena insulin [...] Active tablet mouth 2 (two) times daily. cyclobenzaprine 10 [...] site Vomiting (N/V). fluticasone propionate Use 1 [place] in 16 g 0 04/18/2019 Active 50 mcg/actuation nasal each nostril sprayIndications: daily. Community acquired pneumonia of left lower lobe of lung benzonatate 100 mg Take 1 capsule 21 capsule 0 04/17/2019 Active capsuleIndications: by mouth 3 Community acquired (three) times pneumonia of left lower daily as needed lobe of lung for Cough for up to 21 doses. lactulose 10 gram/15 mL Take 30 mL by 1 Bottle 0 04/17/2019 Active solutionIndications: mouth 3 (three) Community acquired times daily as pneumonia of left lower needed for lobe of lung Constipation. levoFLOXacin 750 mg Take 1 tablet 3 tablet 0 04/18/2019 04/21/2019 Active tabletIndications: by mouth every Community acquired 24 pneumonia of left lower (twenty-four) lobe of lung hours for 3 days. pantoprazole 40 mg EC Take 1 tablet 30 tablet 1 04/17/2019 Active tabletIndications: by mouth daily. Community acquired pneumonia of left lower lobe of lung ipratropium-albuterol Inhale 3 mL 28 Vial 0 04/17/2019 Active 0.5 mg-3 mg(2.5 mg every 6 (six) base)/3 mL nebulizer hours as needed solutionIndications: for Wheezing. Community acquired pneumonia of left lower lobe of lung documented as of this encounter (statuses as of 04/18/2019) Active Problems Problem Noted Date Anemia 04/09/2019 Decompensated hepatic cirrhosis 04/09/2019 Esophageal varices determined by endoscopy 10/23/2018 Overview: Added automatically from request for surgery [id number] Diabetic neuropathy associated with type 2 diabetes mellitus 10/11/2018 Charcot's joint of ankle, right 10/11/2018 Charcot's joint of foot, right 10/11/2018 Fracture dislocation of ankle, right, closed, initial encounter 10/11/2018 Bleeding esophageal varices, unspecified esophageal varices type 10/10/2018 Overview: Added automatically from request for surgery [id number] Melena 09/28/2018 Hypotension due to hypovolemia 09/28/2018 GIB (gastrointestinal bleeding) 09/28/2018 Tibia/fibula fracture 09/22/2018 Pain pelvic 05/25/2013 Cirrhosis 05/25/2013 Abnormal menses 05/25/2013 UTI (urinary tract infection) 05/12/2013 Overview: Ok per Dr. Chaudhari to give Keflex 500mg BID x 7 days Encounter for routine gynecological examination 05/09/2013 Overview: ICD10 Diagnosis Term Parachute Cushion Installer Utility Type 2 diabetes mellitus without complications 05/09/2013 Overview: ICD10 Diagnosis Term Parachute Cushion Installer Utility Other and unspecified ovarian cyst 05/09/2013 Overview: Medical records from [facility] on 04/02/2013. Transvaginal USG. Impression: [...] as of this encounter (statuses as of 04/18/2019) Resolved Problems Problem Noted Date Resolved Date Other abnormal Papanicolaou smear of cervix and cervical 01/30/20082013 HPV(795.09) Contraceptive management 01/30/2008 05/09/2013 Overview: ICD10 Diagnosis Term Parachute Cushion Installer Utility delivery delivered 01/25/2008 05/09/2013 Overview: ICD10 Diagnosis Term Parachute Cushion Installer Utility Diabetes mellitus during , antepartum 11/05/2007 05/09/2013 Overview: ICD10 Diagnosis Term Parachute Cushion Installer Utility Other ill-defined heart disease 05/09/2013 Need for prophylactic vaccination with tetanus toxoid alone 05/09/2013 Other specified and placental problems affecting management of 2013 mother, antepartum Papanicolaou smear of cervix with low grade squamous intraepithelial 2013 lesion (LGSIL) Tubal ligation status 05/09/2013 documented as of this encounter (statuses as of 04/18/2019) Immunizations Name Administration Dates Next Due Influenza [...] filedocumented in this encounter Plan of Treatment Health Maintenance Due Date Last Done Comments EYE EXAM 1984 URINE MICROALBUMIN 1984 DTaP,Tdap,and Td Vaccines (1 - 1985 04/02/2008 Tdap) FOOT EXAM 1992 Breast Cancer Screening 2014 (MAMMOGRAM) PAP SMEAR 05/09/2016 05/09/2013, 10/29/2007 LDL-C 09/23/2019 09/22/2018 HgA1C 10/08/2019 04/09/2019, 09/22/2018, 11/05/2007 CREATININE (SERUM) 04/17/2020 04/17/2019, 04/16/2019, 04/14/2019, Additional history exists INFLUENZA VACCINE Completed 04/17/2019 PNEUMOCOCCAL 0-64 YEARS COMBINED Completed 04/17/2019 SERIES documented as of this encounter Implants Implanted Type Area Safety Professional Device Shelf Model / Identifier Expiration Serial / Date Lot Implant Orthopedic Endcap NAIL Right: [employer] 10/30/2021 1200-04- 0000 / Implanted: Qty: 2 on 12/03/2018 by Ric Sal MD at [facility] [place] AT [facility] NA / [id number] Nail Intramedullary 10mm Elle 22cml NAIL Right: [employer] 07/30/[id number] / Implanted: Qty: 1 on 12/03/2018 by Ric Sal MD at [facility] SPECIAL[facility] NA / [id number] Screw Bone Compression 5mm Elle 85mml SCREW Right: [employer] [id number] / Implanted: Qty: 1 on 12/03/2018 by Ric Sal MD at [facility] NA / [id number] Screw Bone Compression 5mm Elle 30mml SCREW Right: [employer]. 2020-02-5030 / Implanted: Qty: 1 on 12/03/2018 by Ric Sal MD at [facility] NA / [id number] Screw Bone Compression 5mm Elle 30mml SCREW Right: [employer] 2020-02-5030 / Implanted: Qty: 1 on 12/03/2018 by Ric Sal MD at [facility] NA / [id number] Rode Right: Leg Screw-03/08/2018 Right: Implanted: 03/08/2018 (Quantity not on file) Knee Foam Pack, Sheba Vitoss Bb Trauma 10cc #[id number] - Sna Right: [place] 05/30/[id number] / Implanted: Qty: 1 on 12/03/2018 by Ric Sal MD at [facility] AT [facility] NA / [id number] documented as of this encounter Results Not on filedocumented in this encounter
--- OUTSIDE RECORDS SUMMARY | 2019-05-16 17:50 | XMS REPORT | Summary of Care ---
:1975 Author Organization [facility] Address [address] [place] [address] Care Team Providers Name Role Phone Petra Huff Primary Care Provider Reason for Visit Reason Comments Orders Encounter Details Date Type Department Care Team Description 04/25/2019 Case Management [facility] Rell Martinez Orders Gastroenterology-[facility] Mook Flowers MD n [address], [address] 6[address] Floor [phone] [place] [phone] Allergies Active Allergy Reactions Severity Noted Date Comments Penicillins Itching, Nausea and/or Vomiting 05/09/2013 documented as of this encounter (statuses as of 04/25/2019) Medications Medication Sig Dispensed Refills Start Date [...] the skin SC) daily. alendronate 70 mg tablet TAKE 1 TABLET 11 09/10/2018 Active BY MOUTH ONCE A WEEK amitriptyline 100 mg TAKE 1 TABLET 5 09/10/2018 Active tablet BY MOUTH ONCE DAILY AT BEDTIME gabapentin 600 mg tablet Take 600 mg by 5 09/06/2018 Active mouth 2 (two) times daily. cyclobenzaprine 10 mg Take 1 tablet 60 tablet 0 12/03/2018 Active tabletIndications: by mouth 3 Charcot's joint of foot, (three) times right daily. ondansetron (ZOFRAN ODT) Take 1 tablet 6 tablet 0 12/08/2018 Active 4 mg disintegrating by mouth every tabletIndications: 8 (eight) hours Nausea, Pain at surgical as needed for site Nausea and Vomiting (N/V). fluticasone propionate Use 1 [place] in 16 g 0 04/18/2019 Active 50 [...] lower needed for lobe of lung Constipation. pantoprazole 40 mg EC Take 1 tablet [...] as of this encounter (statuses as of 04/25/2019) Active Problems Problem Noted Date Anemia 04/09/2019 Decompensated hepatic cirrhosis 04/09/2019 Esophageal varices determined by endoscopy 10/23/2018 Overview: Added automatically from request for surgery [id number] Diabetic neuropathy associated with type 2 diabetes mellitus 10/11/2018 Charcot's joint of ankle, right 10/11/2018 Charcot's joint of foot, right 10/11/2018 Fracture dislocation of ankle, right, closed, initial encounter 10/11/2018 Bleeding esophageal varices, unspecified esophageal varices type 10/10/2018 Overview: Added automatically from request for surgery [id number] Melena 09/28/2018 Hypotension due to hypovolemia 09/28/2018 GIB (gastrointestinal bleeding) 09/28/2018 Tibia/fibula fracture 09/22/2018 Pain pelvic 05/25/2013 Cirrhosis 05/25/2013 Abnormal menses 05/25/2013 UTI (urinary tract infection) 05/12/2013 Overview: Ok per Dr. Chaudhari to give Keflex 500mg BID x 7 days Encounter for routine gynecological examination 05/09/2013 Overview: ICD10 Diagnosis Term Microarray Operations Vice President Utility Type 2 diabetes mellitus without complications 05/09/2013 Overview: ICD10 Diagnosis Term Microarray Operations Vice President Utility Other and unspecified ovarian cyst 05/09/2013 Overview: Medical records from [facility] on 04/02/2013. Transvaginal USG. Impression: 4.2cm [...] as of this encounter (statuses as of 04/25/2019) Resolved Problems Problem Noted Date Resolved Date Other abnormal Papanicolaou smear of cervix and cervical 01/30/20082013 HPV(795.09) Contraceptive management 01/30/2008 05/09/2013 Overview: ICD10 Diagnosis Term Microarray Operations Vice President Utility delivery delivered 01/25/2008 05/09/2013 Overview: ICD10 Diagnosis Term Microarray Operations Vice President Utility Diabetes mellitus during , antepartum 11/05/2007 05/09/2013 Overview: ICD10 Diagnosis Term Microarray Operations Vice President Utility Other ill-defined heart disease 05/09/2013 Need for prophylactic vaccination with tetanus toxoid alone 05/09/2013 Other specified and placental problems affecting management of 2013 mother, antepartum Papanicolaou smear of cervix with low grade squamous intraepithelial 2013 lesion (LGSIL) Tubal ligation status 05/09/2013 documented as of this encounter (statuses as of 04/25/2019) Immunizations Name Administration Dates Next Due Influenza [...] Treatment Date Type Specialty Care Team Description 05/01/2019 Office Visit Orthopedic Surgery Ric Sal MD [address] [place] [address] [phone] Health Maintenance Due Date Last Done Comments [...] of this encounter Implants Implanted Type Area Court Stenographer Device Shelf Model / Identifier Expiration Serial / Date Lot Implant Orthopedic Endcap NAIL Right: [employer] 10/30/2021 1200-04- 0000 / Implanted: Qty: 2 on 12/03/2018 by Ric Sal MD at [facility] NA / [id number] Nail Intramedullary 10mm Elle 22cml NAIL Right: [employer] 07/30/2021 [id number] / Implanted: Qty: 1 on 12/03/2018 by Ric Sal MD at [facility] NA / [id number] Screw Bone Compression 5mm Elle 85mml SCREW Right: [employer] 2020 [id number] / Implanted: Qty: 1 on 12/03/2018 by Ric Sal MD at [facility] NA / [id number] Screw Bone Compression 5mm Elle 30mml SCREW Right: [employer] 2020 [id number] / Implanted: Qty: 1 on 12/03/2018 by Ric Sal MD at [facility] NA / [id number] Screw Bone Compression 5mm Elle 30mml SCREW Right: [employer] 2020 [id number] / Implanted: Qty: 1 on 12/03/2018 by Ric Sal MD at [facility] NA / [id number] Rode Right: Leg Screw-03/08/2018 Right: Implanted: 03/08/2018 (Quantity not on file) Knee Foam Pack, Sheba Vitoss Bb Trauma 10cc #[id number] - Sna Right: [place] 05/30/2020 / Implanted: Qty: 1 on 12/03/2018 by Ric Sal MD at [facility] AT [facility] NA / [id number] documented as of this encounter Results Not on filedocumented in this encounter Visit Diagnoses Diagnosis Dysphagia, pharyngoesophageal phase - Primary Alcoholic cirrhosis of liver with ascites Alcoholic cirrhosis of liver documented in this encounter
--- OUTSIDE RECORDS SUMMARY | 2019-05-16 17:50 | XMS REPORT | Summary of Care ---
:1975 Author Organization [facility] Address [address] [place] [address] Care Team Providers Name Role Phone Petra Huff Primary Care Provider Reason for Visit Reason Comments Orders Encounter Details Date Type Department Care Team Description 05/06/2019 Case Management [facility] and Rell Martinez Orders Clinics Mook Flowers MD [address] [place] [id number] [place], [place] [phone] Allergies Active Allergy Reactions Severity Noted Date Comments Penicillins Itching, Nausea and/or Vomiting 05/09/2013 documented as of this encounter (statuses as of 05/06/2019) Medications Medication Sig Dispensed Refills Start Date End Date Status FLUoxetine (PROZAC) Take 40 mg by 0 Suspended 40 mg capsule mouth daily. ferrous sulfate 325 Take 1 tablet by 30 tablet 2 09/23/2018 Suspended mg (65 mg iron) mouth daily. tabletIndications: Closed fracture of right tibia and fibula, initial encounter Additional information propranolol 10 mg Take 1 tablet by 60 tablet 2 10/01/2018 Suspended tabletIndications: mouth 2 (two) times Gastrointestinal hemorrhage, daily. unspecified gastrointestinal hemorrhage type, Melena Additional information spironolactone 100 mg Take 1 tablet by 30 tablet 2 10/02/2018 Suspended tabletIndications: mouth daily. Gastrointestinal hemorrhage, unspecified gastrointestinal hemorrhage type, Melena Additional information furosemide 40 mg Take 1 tablet by 30 tablet 2 10/02/2018 Suspended tabletIndications: mouth daily. Gastrointestinal hemorrhage, unspecified gastrointestinal hemorrhage type, Melena Additional information insulin degludec (TRESIBA inject 40 Units under 0 Suspended U-100 INSULIN SC) the skin daily. alendronate 70 mg tablet TAKE 1 TABLET BY MOUTH 11 09/10/2018 Suspended ONCE A WEEK amitriptyline 100 mg tablet TAKE 1 TABLET BY MOUTH 5 09/10/2018 Suspended ONCE DAILY AT BEDTIME gabapentin 600 mg tablet Take 600 mg by mouth 2 5 09/06/2018 Suspended (two) times daily. ondansetron (ZOFRAN ODT) 4 Take 1 tablet by mouth 6 tablet 0 12/08/2018 Suspended mg disintegrating every 8 (eight) hours tabletIndications: Nausea, as needed for Nausea Pain at surgical site and Vomiting (N/V). Additional information fluticasone propionate 50 Use 1 [place] in each 16 g 0 04/18/2019 Suspended mcg/actuation nasal nostril daily. sprayIndications: Community acquired pneumonia of left lower lobe of lung Additional information lactulose 10 gram/15 mL Take 30 mL by mouth 3 1 Bottle 0 04/17/2019 Suspended solutionIndications: (three) times daily as Community acquired pneumonia needed for of left lower lobe of lung Constipation. Additional information pantoprazole 40 mg EC Take 1 tablet by 30 tablet 1 04/17/2019 Suspended tabletIndications: Community mouth daily. acquired pneumonia of left lower lobe of lung Additional information ipratropium-albuterol 0.5 mg-3 Inhale 3 mL every 6 28 Vial 0 04/17/2019 Suspended mg(2.5 mg base)/3 mL nebulizer (six) hours as solutionIndications: Community needed for Wheezing. acquired pneumonia of left lower lobe of lung Additional information documented as of this encounter (statuses as of 05/06/2019) Active Problems Problem Noted Date Anemia 04/09/2019 Decompensated hepatic cirrhosis 04/09/2019 Esophageal varices determined by endoscopy 10/23/2018 Overview: Added automatically from request for surgery [id number] Diabetic neuropathy associated with type 2 diabetes mellitus 10/11/2018 Charcot's joint of ankle, right 10/11/2018 Charcot's joint of foot, right 10/11/2018 Fracture dislocation of ankle, right, closed, initial encounter 10/11/2018 Bleeding esophageal varices, unspecified esophageal varices type 10/10/2018 Overview: Added automatically from request for surgery [id number] Melena 09/28/2018 Hypotension due to hypovolemia 09/28/2018 GIB (gastrointestinal bleeding) 09/28/2018 Tibia/fibula fracture 09/22/2018 Pain pelvic 05/25/2013 Cirrhosis 05/25/2013 Abnormal menses 05/25/2013 UTI (urinary tract infection) 05/12/2013 Overview: Ok per Dr. Chaudhari to give Keflex 500mg BID x 7 days Encounter for routine gynecological examination 05/09/2013 Overview: ICD10 Diagnosis Term Pressurizer Utility Type 2 diabetes mellitus without complications 05/09/2013 Overview: ICD10 Diagnosis Term Pressurizer Utility Other and unspecified ovarian cyst 05/09/2013 Overview: Medical records from [facility] on 04/02/2013. Transvaginal USG. Impression: [...] as of this encounter (statuses as of 05/06/2019) Resolved Problems Problem Noted Date Resolved Date Other abnormal Papanicolaou smear of cervix and cervical 01/30/20082013 HPV(795.09) Contraceptive management 01/30/2008 05/09/2013 Overview: ICD10 Diagnosis Term Pressurizer Utility delivery delivered 01/25/2008 05/09/2013 Overview: ICD10 Diagnosis Term Pressurizer Utility Diabetes mellitus during , antepartum 11/05/2007 05/09/2013 Overview: ICD10 Diagnosis Term Pressurizer Utility Other ill-defined heart disease 05/09/2013 Need for prophylactic vaccination with tetanus toxoid alone 05/09/2013 Other specified and placental problems affecting management of 2013 mother, antepartum Papanicolaou smear of cervix with low grade squamous intraepithelial 2013 lesion (LGSIL) Tubal ligation status 05/09/2013 documented as of this encounter (statuses as of 05/06/2019) Immunizations Name Administration Dates Next Due Influenza [...] Treatment Date Type Specialty Care Team Description 05/14/2019 Office Visit Orthopedic Surgery Palacio, David Chatman MD [address] [place], [place] [id number] Health Maintenance Due Date Last Done Comments EYE EXAM 1984 URINE MICROALBUMIN 1984 DTaP,Tdap,and Td Vaccines (1 - 1985 04/02/2008 Tdap) FOOT EXAM 1992 Breast Cancer Screening 2014 (MAMMOGRAM) PAP SMEAR 05/09/2016 05/09/2013, 10/29/2007 LDL-C 09/23/2019 09/22/2018 HgA1C 10/08/2019 04/09/2019, 09/22/2018, 11/05/2007 CREATININE (SERUM) 05/05/2020 05/05/2019, 05/04/2019, 05/03/2019, Additional history exists INFLUENZA VACCINE Completed 04/17/2019 PNEUMOCOCCAL 0-64 YEARS COMBINED Completed 04/17/2019 SERIES documented as of this encounter Implants Implanted Type Area Laborer Ammunition Assembly Device Shelf Model / Identifier Expiration Serial / Date Lot Six Shooter Farhat Multi-Band Ligater Band [facility] 06/13/2019 MBL-6 -F / Implanted: Qty: 3 on 05/03/2019 by Mya Holliday MD at [facility] 0 / [id number] Implant Orthopedic Endcap NAIL Right: [employer] 10/30/20211199-04- 0000 / Implanted: Qty: 2 on 12/03/2018 by Ric Sal MD at [facility] NA / [id number] Nail Intramedullary 10mm Elle 22cml NAIL Right: [employer] 07/30/[id number] / Implanted: Qty: 1 on 12/03/2018 by Ric Sal MD at [facility] NA / [id number] Screw Bone Compression 5mm Elle 85mml SCREW Right: [employer]. [id number] / Implanted: Qty: 1 on 12/03/2018 by Ric Sal MD at [facility] AT [facility] NA / [id number] Screw Bone Compression 5mm Elle 30mml SCREW Right: [employer] [id number] / Implanted: Qty: 1 on 12/03/2018 by Ric Sal MD at [facility] AT [facility] NA / [id number] Screw Bone Compression 5mm Elle 30mml SCREW Right: [employer] 2020 / Implanted: Qty: 1 on 12/03/2018 by Ric Sal MD at [facility] NA / [id number] Rode Right: Leg Screw-03/08/2018 Right: Implanted: 03/08/2018 (Quantity not on file) Knee Foam Pack, [place] Vitoss Bb Trauma 10cc # - Sna Right: [place] 05/30/2020 / Implanted: Qty: 1 on 12/03/2018 by Ric Sal MD at [facility] NA / [id number] documented as of this encounter Results Not on filedocumented in this encounter Visit Diagnoses Diagnosis Bleeding esophageal varices, unspecified esophageal varices type - Primary documented in this encounter Insurance Payer Benefit Plan / Subscriber ID Effective Phone Address Type Group Dates MEDICAID MEDICAID SSI PENDING 2019-[address] [place] [address] documented as of this encounter
--- OUTSIDE RECORDS SUMMARY | 2019-05-16 17:53 | XMS REPORT | Summary of Care ---
:1975 Author Organization [facility] Address [address] [place] [id number] Care Team Providers Name Role Phone Petra Huff Primary Care Provider Reason for Referral Radiology Services (Routine) Status Reason Specialty Diagnoses / Referred By Referred To Procedures Contact Contact New Request Diagnostic Diagnoses Pain Palacio, David Radiology Procedures XR KNEE 3 VW RIGHT Lurdes MD [address] [place] [address] Radiology Services (Routine) Status Reason Specialty Diagnoses / Referred By Referred To Procedures Contact Contact New Request Diagnostic Diagnoses Pain Palacio David Radiology Procedures XR FEMUR 2 VW RIGHT Lurdes MD [address] [place] [address] Encounter Details Date Type Department Care Team Description 05/11/2019 Abstract [facility] Orthopaedic Dar Leong, Pain ( Primary Dx) Surgery- [facility] [place] [address] [address] [place] [address] [phone] Allergies Active Allergy Reactions Severity Noted Date Comments Penicillins Itching, Nausea and/or Vomiting 05/09/2013 documented as of this encounter (statuses as of 05/11/2019) Medications Medication Sig Dispensed Refills Start Date [...] site Vomiting (N/V). fluticasone propionate Use 1 [place] in 16 g 0 04/18/2019 Active 49 [...] as of this encounter (statuses as of 05/11/2019) Active Problems Problem Noted Date Anemia 04/09/2019 Decompensated hepatic cirrhosis 04/09/2019 Esophageal varices determined by endoscopy 10/23/2018 Overview: Added automatically from request for surgery [id number] Diabetic neuropathy associated with type 2 diabetes mellitus 10/11/2018 Charcot's joint of ankle, right 10/11/2018 Charcot's joint of foot, right 10/11/2018 Fracture dislocation of ankle, right, closed, initial encounter 10/11/2018 Bleeding esophageal varices, unspecified esophageal varices type 10/10/2018 Overview: Added automatically from request for surgery [id number] Melena 09/28/2018 Hypotension due to hypovolemia 09/28/2018 GIB (gastrointestinal bleeding) 09/28/2018 Tibia/fibula fracture 09/22/2018 Pain pelvic 05/25/2013 Cirrhosis 05/25/2013 Abnormal menses 05/25/2013 UTI (urinary tract infection) 05/12/2013 Overview: Ok per Dr. Chaudhari to give Keflex 500mg BID x 7 days Encounter for routine gynecological examination 05/09/2013 Overview: ICD10 Diagnosis Term Thread Machine Operator Utility Type 2 diabetes mellitus without complications 05/09/2013 Overview: ICD10 Diagnosis Term Thread Machine Operator Utility Other and unspecified ovarian cyst 05/09/2013 Overview: Medical records from [facility] on 04/02/2013. Transvaginal USG. Impression: [...] as of this encounter (statuses as of 05/11/2019) Resolved Problems Problem Noted Date Resolved Date Other abnormal Papanicolaou smear of cervix and cervical 01/30/20082013 HPV(795.09) Contraceptive management 01/30/2008 05/09/2013 Overview: ICD10 Diagnosis Term Thread Machine Operator Utility delivery delivered 01/25/2008 05/09/2013 Overview: ICD10 Diagnosis Term Thread Machine Operator Utility Diabetes mellitus during , antepartum 11/05/2007 05/09/2013 Overview: ICD10 Diagnosis Term Thread Machine Operator Utility Other ill-defined heart disease 05/09/2013 Need for prophylactic vaccination with tetanus toxoid alone 05/09/2013 Other specified and placental problems affecting management of 2013 mother, antepartum Papanicolaou smear of cervix with low grade squamous intraepithelial 2013 lesion (LGSIL) Tubal ligation status 05/09/2013 documented as of this encounter (statuses as of 05/11/2019) Immunizations Name Administration Dates Next Due Influenza [...] Visit Orthopedic Surgery Palacio, David Chatman MD [address] [place] [address] [phone] Name Type Priority Associated Diagnoses Order Schedule XR FEMUR 2 VW RIGHT IMAGING Routine Pain Expected: 05/11/2019, Expires: 05/11/2020 XR KNEE 3 VW RIGHT IMAGING Routine Pain Expected: 05/11/2019, Expires: 05/11/2020 Health Maintenance Due Date Last Done Comments [...] of this encounter Implants Implanted Type Area Revolving Inventory Clerk Device Shelf Model / Identifier Expiration Serial / Date Lot Six Shooter Farhat Multi-Band Ligater Band [place] [employer] 06/13/2019 MBL-6 -F / Implanted: Qty: 3 on 05/03/2019 by Mya Holliday MD at [facility] 0 / [id number] Implant Orthopedic Endcap NAIL Right: [employer] 10/30/20211199-04- 0000 / Implanted: Qty: 2 on 12/03/2018 by Ric Sal MD at [facility] Foot NA / [id number] Nail Intramedullary 10mm Elle 22cml NAIL Right: [employer] 07/30/[id number] / Implanted: Qty: 1 on 12/03/2018 by Ric Sal MD at [facility] NA / [id number] Screw Bone Compression 5mm Elle 85mml SCREW Right: [employer] 2020-03-5085 / Implanted: Qty: 1 on 12/03/2018 by Ric Sal MD at [facility] NA / [id number] Screw Bone Compression 5mm Elle 30mml SCREW Right: [employer] 2020 / Implanted: Qty: 1 on 12/03/2018 by Ric Sal MD at [facility] NA / [id number] Screw Bone Compression 5mm Elle 30mml SCREW Right: [employer] 2020 / Implanted: Qty: 1 on 12/03/2018 by Ric Sal MD at [facility] NA / [id number] Rode Right: Leg Screw-03/08/2018 Right: Implanted: 03/08/2018 (Quantity not on file) Knee Foam Pack, Magnet Vitoss Bb Trauma 10cc #[id number] - Sna Right: Magnet 05/30/2020 / Implanted: Qty: 1 on 12/03/2018 by Ric Sal MD at [facility] NA / [id number] documented as of this encounter Results Not on filedocumented in this encounter Visit Diagnoses Diagnosis Pain - Primary Generalized pain documented in this encounter Insurance Payer Benefit Plan / Subscriber ID Effective Phone Address Type Group Dates MEDICAID MEDICAID SSI PENDING 2019-[address] Pending [place] [address] documented as of this encounter
--- OUTSIDE RECORDS SUMMARY | 2019-05-16 17:53 | XMS REPORT | Summary of Care ---
:1975 Author Organization [facility] Address [address] [place] [id number] Care Team Providers Name Role Phone Petra Bloom Primary Care Provider Reason for Referral (Routine) Status Reason Specialty Diagnoses / Procedures Referred By Referred To Contact Contact New Request IM-GASTROENTEROL Diagnoses Gastrointestinal hemorrhage, unspecified gastrointestinal hemorrhage type Ernestotein, OGY Procedures Discharge Follow-Up: Specialty Service IM-GASTROENTEROLOGY; 2 Weeks Cheryle Chen MD [address] [place] [address] (Routine) Status Reason Specialty Diagnoses / Procedures Referred By Referred To Contact Contact New Request Diagnoses Gastrointestinal hemorrhage, unspecified gastrointestinal hemorrhage type Refugio Tolentino, Procedures Discharge Follow-up: PCP PETRA BLOOM; 3-5 Days MD Petra Daily [address] [place] [id number] [place] [phone] Phone: Fax: Radiology Services (ADEEL) Status Reason Specialty Diagnoses / Procedures Referred By Referred To Contact Contact New Request Diagnostic Diagnoses Gastrointestinal hemorrhage, unspecified gastrointestinal hemorrhage type Sonstein, Radiology Procedures XR CHEST 1 VW Cheryle Chen MD [address] [facility] [id number] [place] [id number] Radiology Services (STAT) Status Reason Specialty Diagnoses / Procedures Referred By Referred To Contact Contact New Request Diagnostic Diagnoses Gastrointestinal hemorrhage, unspecified gastrointestinal hemorrhage type Jazmin, Radiology Procedures XR KUB MD Ace [address] [place] [address] Radiology Services (ADEEL) Status Reason Specialty Diagnoses / Procedures Referred By Referred To Contact Contact New Request Diagnostic Diagnoses Gastrointestinal hemorrhage, unspecified gastrointestinal hemorrhage type Jazmin, Radiology Procedures US ABDOMEN LIMITED WITH DOPPLER MD Ace [address] [place] [address] MRI/CAT Scan (STAT) Status Reason Specialty Diagnoses / Procedures Referred By Referred To Contact Contact New Request Diagnostic Diagnoses Lower abdominal pain Gastrointestinal hemorrhage, unspecified gastrointestinal hemorrhage type Norbert Stinson Radiology Procedures CT ABDOMEN PELVIS W MICHELLE Groves MD [address] [address] Reason for Visit Reason Comments Abdominal Pain Rectal Bleeding Auth/Cert Status Reason Specialty Diagnoses / Referred By Referred To Procedures Contact Contact Emergency Medicine [facility] Emergency Dept [address] [place] [id number] Encounter Details Date Type Department Care Team Description 05/03/2019 - Hospital Encounter Medicine (SHASHANK 10B) Norbert Stinson MD [address] [phone] GIB 05/07/2019 2 [facility] Ace Greenberg MD [address] [place], [place] [id number] ([place] [address] Cheryle Tolentino MD [address] [facility] [id number] [place] [id number] bleeding) [phone] Allergies Active Allergy Reactions Severity Noted Date Comments Penicillins Itching, Nausea and/or Vomiting 05/09/2013 documented as of this encounter (statuses as of 05/07/2019) Medications Medication Sig Dispensed Refills Start End Date Status Date FLUoxetine (PROZAC) Take 40 mg 0 Active 40 mg capsule by mouth daily. ferrous sulfate 325 Take 1 30 tablet 2 Active mg (65 mg iron) tablet by 9 tabletIndications: mouth daily. Closed fracture of right tibia and fibula, initial encounter propranolol 10 mg Take 1 60 tablet 2 Active tabletIndications: tablet by 9 Gastrointestinal mouth 2 hemorrhage, (two) times unspecified daily. gastrointestinal hemorrhage type, Melena insulin degludec inject 40 0 Active (TRESIBA U-100 Units under INSULIN SC) the skin daily. alendronate 70 mg TAKE 1 11 Active tablet TABLET BY 9 MOUTH ONCE A WEEK amitriptyline 100 mg TAKE 1 Active tablet TABLET BY 9 MOUTH ONCE DAILY AT BEDTIME gabapentin 600 mg Take 600 mg 5 Active tablet by mouth 2 9 (two) times daily. ondansetron (ZOFRAN Take 1 6 tablet 0 Active ODT) 4 mg tablet by 9 disintegrating mouth every tabletIndications: 8 (eight) Nausea, Pain at hours as surgical site needed for Nausea and Vomiting (N/V). fluticasone Use 1 [place] 16 g 0 Active propionate 50 in each 0 mcg/actuation nasal nostril sprayIndications: daily. Community acquired pneumonia of left lower lobe of lung lactulose 10 gram/15 Take 30 mL 1 Bottle 0 Active mL by mouth 3 0 solutionIndications: (three) Community acquired times daily pneumonia of left as needed lower lobe of lung for Constipation . ipratropium-albuterol Inhale 3 mL 28 Vial 0 Active 0.5 mg-3 mg(2.5 mg every 6 0 base)/3 mL nebulizer (six) hours solutionIndications: as needed Community acquired for pneumonia of left Wheezing. lower lobe of lung ciprofloxacin HCl 500 Take 1 4 tablet 0 05/09/19 Active mg tabletIndications: tablet by 0 20 Gastrointestinal mouth 2 hemorrhage, (two) times unspecified daily for 2 gastrointestinal days. hemorrhage type lidocaine 2% viscous Take 10 mL 1 Bottle 2 Active 2 % by mouth 0 solutionIndications: every 6 Gastrointestinal (six) hours. hemorrhage, unspecified gastrointestinal hemorrhage type spironolactone 100 mg Take 1 30 tablet 2 Active tabletIndications: tablet by 0 Gastrointestinal mouth daily. hemorrhage, unspecified gastrointestinal hemorrhage type, Melena furosemide 40 mg Take 1 30 tablet 2 Active tabletIndications: tablet by 0 Gastrointestinal mouth daily. hemorrhage, unspecified gastrointestinal hemorrhage type, Melena omeprazole 40 mg Take 1 30 capsule 1 07/07/19 Active capsuleIndications: capsule by 0 20 Gastrointestinal mouth daily hemorrhage, for 60 days. unspecified gastrointestinal hemorrhage type zolpidem (AMBIEN) 10 Take 10 mg 0 05/03/19 Discontinued mg tablet by mouth at 20 bedtime as needed for Insomnia. metFORMIN Take 1,000 0 05/03/19 Discontinued (GLUCOPHAGE) 1,000 mg mg by mouth 20 tablet 2 (two) times daily with meals. spironolactone 100 mg Take 1 30 tablet 2 05/07/19 Discontinued tabletIndications: tablet by 9 20 (Reorder) Gastrointestinal mouth daily. hemorrhage, unspecified gastrointestinal hemorrhage type, Melena furosemide 40 mg Take 1 30 tablet 2 05/07/19 Discontinued tabletIndications: tablet by 9 20 (Reorder) Gastrointestinal mouth daily. hemorrhage, unspecified gastrointestinal hemorrhage type, Melena cyclobenzaprine 10 mg Take 1 60 tablet 0 05/03/19 Discontinued tabletIndications: tablet by 9 20 Charcot's joint of mouth 3 foot, right (three) times daily. benzonatate 100 mg Take 1 21 capsule 0 05/03/19 Discontinued capsuleIndications: capsule by 0 20 Community acquired mouth 3 pneumonia of left (three) lower lobe of lung times daily as needed for Cough for up to 21 doses. pantoprazole 40 mg EC Take 1 30 tablet 1 05/07/19 Discontinued tabletIndications: tablet by 0 20 Community acquired mouth daily. pneumonia of left lower lobe of lung documented as of this encounter (statuses as of 05/07/2019) Active Problems Problem Noted Date Anemia 04/09/2019 Decompensated hepatic cirrhosis 04/09/2019 Esophageal varices determined by endoscopy 10/23/2018 Overview: Added automatically from request for surgery [id number] Diabetic neuropathy associated with type 2 diabetes mellitus 10/11/2018 Charcot's joint of ankle, right 10/11/2018 Charcot's joint of foot, right 10/11/2018 Fracture dislocation of ankle, right, closed, initial encounter 10/11/2018 Bleeding esophageal varices, unspecified esophageal varices type 10/10/2018 Overview: Added automatically from request for surgery [id number] Melena 09/28/2018 Hypotension due to hypovolemia 09/28/2018 GIB (gastrointestinal bleeding) 09/28/2018 Tibia/fibula fracture 09/22/2018 Pain pelvic 05/25/2013 Cirrhosis 05/25/2013 Abnormal menses 05/25/2013 UTI (urinary tract infection) 05/12/2013 Overview: Ok per Dr. Chaudhari to give Keflex 500mg BID x 7 days Encounter for routine gynecological examination 05/09/2013 Overview: ICD10 Diagnosis Term Medical Coding Auditor Utility Type 2 diabetes mellitus without complications 05/09/2013 Overview: ICD10 Diagnosis Term Medical Coding Auditor Utility Other and unspecified ovarian cyst 05/09/2013 Overview: Medical records from [facility] on 04/02/2013. Transvaginal USG. Impression: 4.2cm cyst [...] as of this encounter (statuses as of 05/07/2019) Resolved Problems Problem Noted Date Resolved Date Other abnormal Papanicolaou smear of cervix and cervical 01/30/20082013 HPV(795.09) Contraceptive management 01/30/2008 05/09/2013 Overview: ICD10 Diagnosis Term Medical Coding Auditor Utility delivery delivered 01/25/2008 05/09/2013 Overview: ICD10 Diagnosis Term Medical Coding Auditor Utility Diabetes mellitus during , antepartum 11/05/2007 05/09/2013 Overview: ICD10 Diagnosis Term Medical Coding Auditor Utility Other ill-defined heart disease 05/09/2013 Need for prophylactic vaccination with tetanus toxoid alone 05/09/2013 Other specified and placental problems affecting management of 2013 mother, antepartum Papanicolaou smear of cervix with low grade squamous intraepithelial 2013 lesion (LGSIL) Tubal ligation status 05/09/2013 documented as of this encounter (statuses as of 05/07/2019) Immunizations Name Administration Dates Next Due Influenza Virus Vaccine Quad .5 mL IM 6+ MO 04/17/2019 Pneumococcal Polysaccharide, PPSV23 (PNEUMOVAX) 04/17/2019 Td 04/02/2008 documented as of this encounter Social History Tobacco Use Types Packs/Day Years Used Date Light Tobacco Smoker Cigarettes Smokeless Tobacco: Never Used Tobacco Cessation: Counseling Given: No Comments: occasional when she is stressed Alcohol [...] Sign Reading Time Taken Comments Blood Pressure 132/68 05/07/2019 11:39 AM MEDIA STRATEGIST Pulse 55 05/07/2019 11:39 AM MEDIA STRATEGIST Temperature 36.7 C (98.1 F) 05/07/2019 11:39 AM MEDIA STRATEGIST Respiratory Rate 18 05/07/2019 11:39 AM MEDIA STRATEGIST Oxygen Saturation 98% 05/07/2019 11:39 AM MEDIA STRATEGIST Inhaled Oxygen Concentration - - Weight 64.4 kg (142 lb) 05/07/2019 4:02 AM MEDIA STRATEGIST Height 167.6 cm (5' 6") 05/03/2019 6:00 AM MEDIA STRATEGIST Body Mass Index 22.92 05/03/2019 6:00 AM MEDIA STRATEGIST documented in this encounter Discharge Summaries Annalisa Majano LMSW - 05/07/2019 3:19 PM MEDIA STRATEGIST Care Management Discharge Disposition Note (DCDN) 5-2-1 Interventions: Disease specific education;Intensive medication reconciliation/management;Teachback;Clear discharge plan;Follow-up appointments 5-2-1 Providers: Physician;Cloth Winder Machine Operator/Serging Machine Operator Automatic;Nurse 5-2-1 Patient Capacity Improvements: Transportation arrangements Discharge Plan for ongoing care and services: Is this a new referral: Patient Choice completed for referred services: DME location: Other DME location: Durable Medical Equipment: Home Health location: Discharge location(s): [place] [address] Patient choice completed for referred services: Discussed with patient/patients family involved in decision making: Yes Patient or family caregiver understands, and agrees with discharge plan. Community resources/referrals made or provided to patient: Resources/Referrals: [facility] Transportation: Private Vehicle Pt's sonArslan Mental Status: Alert & Oriented to Person,Place & Time Living Arrangement: Home Other living arrangement: Address of living arrangement: [address] [place] [address] Funding Resources: Self Pay Nursing informed of discharge plan: Yes Name of RN informed: Estimated discharge date: 05/07/19 Time: 1700 Additional Information: TIRSO/PAM Name & Contact number: Annalisa Majano LMSW Ph. [phone] The following information has been provided to the facility noted above: reason for the patient discharge or transfer; patients physical and psychosocial status; summary of care, treatment, servicesprovided to patient; and the patient progress toward goals. documented in this encounter Discharge Instructions AttachmentsThe following attachments cannot be sent through Care Everywhere.Abdominal Pain, Adult (Mosotho)Ascites (Mosotho)Paracentesis (Mosotho )Paracentesis, Discharge Instructions for (Mosotho)Omeprazole tablets (OTC) ( Mosotho)Ciprofloxacin tablets (Mosotho)Spironolactone tablets (Mosotho) Furosemide tablets (Mosotho)documented in this encounter Progress Notes Annalisa Majano LMSW - 05/07/2019 3:12 PM CSTSocial Worker Note SW spoke with patient. Per medical team patient medically ready to discharge. Pt reported her son, Arslan Zhang was going to provide transport on discharge. Annalisa Majano LMSW Serging Machine Operator Automatic Care Management [phone] l- Rell Reynoso MD - 05/06/2019 2:38 PM CST Gastroenterology and hepatology Progress Note Date of Service: 05/06/2019 14:38 Chief Complaint: Melena 24 Hour Events: - Hgb stable. Subjective: No further nausea or vomiting since last night. Having some left sided abdominal pain Physical exam: Temp: [36.1 C (97 F)-37 C (98.6 F)] Heart Rate (monitor): [68] Pulse: [65-70] Resp: [12-18] BP: (115-144)/(67-86) MAP (mmHg): [98-102] General: Alert, no apparent distress HEENT: No scleral icterus Lungs: Clear to auscultation bilateral, no wheezes or crackles CV: RRR, S1, S2 normal, no murmurs rubs or gallops, JVD not elevated. Abdomen: soft, nontender/nondistended, bowel sounds normoactive Extremities: trace edema. Labs/imaging/Endoscopy: Reviewed 05/04/2019 11:16 05/04/2019 17:43 05/05/2019 05:29 05/05/2019 16:11 05/06/2019 05:15 HGB 7.9 (L) 7.3 (L) 6.9 (L) 9.0 (L) 8.3 (L) EGD 05/03/2019 - Recently bleeding large (> 5 mm) esophageal varices. Completely eradicated. Banded. - Red blood in the gastric fundus. - Portal hypertensive gastropathy. - Normal examined duodenum. - No specimens collected. CURRENT MEDICATIONS: Reviewed Assessment/Plan: UGIB 2/2 EV bleeding s/p EVL 05/03 Comment: Patient with EtOH-related cirrhosis, presented with Melena, EGD with evidence of recently bleeding large varices s/p EVL. Hgb remains stable with no further evidence of overt bleeding. Recommendations: - Continue to Monitor Hgb Q8h, transfuse if there is active bleeding or Hb<7. - Keep INR < 1.5, Plt > 50K and Fibrinogen > 200. - Continue with Protonix and Octreotide gtt to complete 72 hours after which she will need to be on Omeprazole 40 mg daily for 8 weeks and Propranolol 10 mg BID with titration for HR 60 (if HR and BP tolerates). - Rocephin for infection prophylaxis to complete 7 days. - Advance diet as tolerated. - Monitor color and character of bowel movement. - Use Viscous Lidocaine at 2% 10 mL PO q 4 hrs for 3 days. - Repeat EGD in 1 month. - Notify GI fellow cardiac catheterization technologist with any changes. Nausea & Vomiting, improved. Recommendations: - Anti-emetics per primary team. Decompensated EtOH-related cirrhosis, MELD 8 (d/b EV bleeding and ascites) Recommendations: - Ascites: Low sodium diet, Strict I/O's and daily weights. - Encephalopathy: Grade 0. Lactulose, titrate to achieve 2-3 loose bowel movements daily. - Varices EGD 05/03 with recently bleeding varices s/p EVL. Continue with Protonix and Octreotide gtt to complete 72 hours after which she will need to be on Omeprazole 40 mg daily for 8 weeks and Propranolol 10 mg BID with titration for HR 60 (if HR and BP tolerates). - SBP Ruled out - HCC Surveillance US 08/2018 with no focal lesions, CT this admission with no focal lesions (not a triple phase). Continue AFP and US every 6 months. - Immunity screening: vaccinate for HBV and HAV if not immune (outpatient). - Please consult CM and SW to assist in financial resources. - Plesae obtain therapeutic and diagnostic paracentesis. - Follow up in Hepatology clinic upon discharge. Patient was seen and discussed with Dr. Conrad. GI will continue to follow. Please call with any questions. Rell Martinez MD PGY4 - Gastroenterology and hepatology Pager # : [phone] A STRATEGIST Associated attestation - Aaron Conrad MD - 05/06/2019 11:40 PM CSTI examined the patient on 05/06/[address] Martinez's note as written. I actively participated in the decision-making process. Please see the note for additional details. Cheryle Tolentino MD - 05/06/2019 6:43 AM CST [facility] Team Progress Note Patient Name: Rosanna York : 1975 Admit Date: 05/03/2019 Primary Care Physician: Petra Bloom CC [facility] 24 HOUR EVENTS Transfer from MICU to [place] SUBJECTIVE Reports abdominal pain around right side of abdomen. Reports making BMs and urine. Denies any shortness of breath this morning. PHYSICAL EXAM Vitals Temp: [35.9 C (96.7 F)-37 C (98.6 F)] Heart Rate (monitor): [65-72] Pulse: [65-73] Resp: [11-18] BP: (120-144)/(68-86) MAP (mmHg): [12-102] Vitals: 05/05/19 1600 05/05/19 1800 05/05/19 2120 05/06/19 0327 BP: (!) 144/86 138/82 135/79 120/68 Pulse: 68 68 70 68 Resp: 17 12 16 18 Temp: 36.1 C (97 F) 37 C (98.6 F) 36.6 C (97.9 F) TempSrc: Oral Oral SpO2: 97% 98% 98% 97% Weight: Height: Intake/Output Summary (Last 24 hours) at 05/06/2019 0643 Last data filed at 05/05/2019 1700 Gross per 24 hour Intake 1642 ml Output Net 1642 ml Constitutional: Appears in no acute distress Cardiovascular: RRR Respiratory: Mild bibasilar crackles Gastrointestinal: +BS, Distended, mild tenderness to palpation right side of abdomen Musculoskeletal/Integumentary/Ext: Trace edema RLE with prior surgery, no edema LLE Neurological: Coherent to Conversation LABS WBC 4.1-3.87 Hb 5.4-11.6-6.4-7.8-7.5-7.9-7.1-7.9-7.3-6.9-9.0-8.3 PLT 104-92 Na 1420-141 K 3.5-3.8 HCO3 22-24 AGAP 5-4 BUN 14-10 Cr 0.96-0.80 MICROBIOLOGY Body Fluid Culture Ascites no growth to date 05/03/2019 IMAGING EGD 05/03/2019 - Recently bleeding large (> 5 mm) esophageal varices. Completely eradicated. Banded x3 - Red blood in the gastric fundus. - Portal hypertensive gastropathy. - Normal examined duodenum. - No specimens collected. ASSESSMENT/PLAN Rosanna York is a 43 year old female who presented with: UGIB 05/04 EV bleeding s/p EVL 05/03 Decompensated EtOH-related cirrhosis, MELD 8 (d/b EV bleeding and ascites) Anemia, multifactorial Thrombocytopenia Patient presented with UGIB, underwent EGD which showed large varices, banded, continued on PPI/Octreotide gtts for 72 hours, Hb reasonably stable, N/V controlled with anti-emetics. Plan -omeprazole 40 mg po Daily - Propranolol 10mg BID titrated to HR 60 if BP tolerates - Rocephin for 7 total days for infection prophylaxis - Advance diet as tolerated - Viscous Lidocaine for 3 days - Repeat EGD in one month outpatient - Zofran + Phenergan for N/V - C/w lactulose, 4 BM per day -restart home dose diuretics -therapeutic paracentesis today F: N/A E: Replete prn N: GI Soft Prophylaxis: SCDs, GIB Code: CPR Disp: Pending The care, plan, and management of this patient was discussed with Dr. Tolentino, a Faculty Attending Rg Yeh MD [facility] Internal Medicine PGY-2 Pager: [phone] END OF DAILY PROGRESS NOTE I personally examined the patient on 05/06/[address] Yeh's resident note with the following addition(s): patient is doing well, Hgb stable , abdominal exam with tense ascites, plan for therapeutic paracentesis today, start diuretics. . I actively participated in the decision-making process. Please see the resident's note for additional details. Cheryle Tolentino MD 05/06/2019 9:00 PM HOSPITAL COURSE 43yF with PMH ETOH cirrhosis, DM who presented with complaint of melena. On arrival Hb was found to be 5.4, she was transferred to the MICU for further care. GI was consulted and completed an EGD on 05/03/2019 with evidence of recently bleeding large varices which were banded. Patient was continued on PPI and Octreotide drips for 72 hours with plan to transition to Omeprazole 40mg PO daily for 8 weeks and close follow up with GI for repeat EGD in one month for endoscopic band ligation. Karl Pineda MD - 05/05/2019 9:55 PM CST [facility] Team Acceptance Note Date of Service: 05/05/2019 21:55 HOSPITAL COURSE 43 Year-old F with PMH of ETOH cirrhosis c/b esophogeal varices s/p banding, DM who presents for melena. GI performed EGD and found 3 varices which were banded. Patient was started on CLD and toleratedwell. SUBJECTIVE: Feeling nauseaous and moderate epigastric pain PHYSICAL EXAM: Vitals: 05/05/19 1400 05/05/19 1600 05/05/19 1800 05/05/19 2120 BP: 132/68 (!) 144/86 138/82 135/79 Pulse: 67 68 68 70 Resp: 15 17 12 16 Temp: 36.1 C (97 F) 37 C (98.6 F) TempSrc: Oral SpO2: 98% 97% 98% 98% Weight: Height: Intake/Output Summary (Last 24 hours) at 05/05/2019 2155 Last data filed at 05/05/2019 1700 Gross per 24 hour Intake 2510.5 ml Output Net 2510.5 ml General: No acute distress Skin: no lesions, warm, good capillary fill. HEENT: PERRL, EOM normal, moist oral mucosa. Pulm: breath sounds normal CV: RRR no murmurs, pulses symmetrical 2+ in radials and dorsalis pedis. Abd: Ascites, Soft, moderate TTP in epigastric region, no resistance, no rebound , BS normal. Ext: Trace to 1+ edema in ankles. Neuro: AOx4 no motor weakness. No asterixis. LABS/IMAGING - reviewed, pertinent results as below: Hgb (BL 11) 6>3xpRBC>9 Cr 0.9 ASSESSMENT/PLAN Rosanna York is a 43 year old female admitted to the hospital with: Acute Anemia 2/2 EV s/p banding EtOH Cirrhosis + Ascites ?Colitis vs portal HTN VSS, no recent sign of GIB. SBP ruled out. Patient moderately distress due to nausea and abdominal pain, RUQ this AM was WNL. Continuing UGIB measures. -IV PPI+ Octreotide (EOT / 2 PM) then switch to omeprazole 40 mg qd x 8w + Propranolol 10 mg bid titrating for HR 60 if BP ok. -Follow GI recs including repeat EGD in 4w. Case request placed. -Antiemetics and pain management. Karl Walton M.D. PGY2- Internal Medicine [place] Team Pager: [phone] Corky Wilson MD - 05/05/2019 6:10 PM CSTBrief Progress/Transfer Note: 43 Year-old F with PMH of ETOH cirrhosis c/b esophogeal varices s/p banding, DM who presented for melena. the increase in abdominal swelling she has had less appetite. She presented to [facility] for evaluation of melena. She was given 1L of NS and Hgb was drawn and found to be 5.4. CT abd pelvis with contrast was done and remarkable for cirrhosis with portal HTN. She was then transferred to [facility] in [place] for higher level of care. GI performed EGD and found 4 columns of moderate size varices with red georgina signs. 3 bands placed successfully with no bleeding. Post-operatively complicated by intractable nausea and vomiting which improved with scheduled zofran and Phenergan. She has tolerated clear liquid. Patient is stable to be transferred to the floor for further management. Assessment/Plan: Melena2/2 Esophageal Varices Colitis vs portal colopathy Decompensated ETOH cirrhosis Hx of esophogeal varices s/p banding 09/2018 Thrombocytopenia Hepatic encephalopathy grade 1 - Continue advancing diet as tolerated. - c/w SBP ppx (end date and time scheduled) - Continue Protonix and octreotide drip x 72 hrs. After 72 hrs,stop octreotide drip and continue omeprazole 40 mg once daily x 8 weeks. (end date and time already scheduled on MAY) - Repeat Endoscopy in 4 weeks - variceal surveillance. Case request placed Corky Matamoros MD Internal Medicine PGY-2 [place] Team #[id number] olMiranda armendariz LBSW - 05/05/2019 12:17 PM CSTCare Management Social Functional Assessment Patient Name: Rosanna York Age: [age] year old Sex: female Patient's Previous Admission Date at [facility]: 04/09/2019 Current diagnosis and co-morbidities: GI bleed anemia Readmission Questions: Was patient discharged from any acute care hospital within the last 30 days: Yes Were all questions regarding previous illness/diagnosis answered prior to discharge: Yes Did you have any difficulties with your discharge instructions: Yes If Yes, comment: unable to relay clarlify what was unsure in her mind at time of d/c Were you able to go to your follow-up discharge appointments: Yes Any difficulties after discharge with medications: Yes If Yes, comment: states unable to afford insulin Any difficulties after discharge with transportation: No Any difficulties after discharge with physical conditions, support, or other limitations?: No Did patient refuse services that were recommended on the previous admission: No Was patient non-compliant with the previously recommended treatment: No If admitted from the ED did you call your primary MD or place a sick call/ request with your provider?: No Social Functional Assessment: Primary language spoken/preferred: Mosotho Mental Status: Alert & Oriented to Person,Place & Time Information given by: Self Patient's support system: Child;Spouse Name and number of support system: son Arslan Denis [phone] and spouse Karl López [phone] Primary Head Automatic Sawyer: Self MPOA: No Living Arrangement: [address] [facility] [address] Persons living in home: Self;Other Names & numbers of persons living in home: spouse, dtr age 11 Barriers to returning home: None Baseline functional status- ambulation: Requires minimal to moderate assistance Functional status-baseline personal care: Independent Baseline functional status- driving: Dependent Baseline functional status- grocery shopping: Requires minimal to moderate assistance Functional status-baseline housekeeping: Requires minimal to moderate assistance Functional status-baseline meal prep: Requires minimal to moderate assistance Current functional status same as prior: No Current functional status- ambulation: Requires minimal to moderate assistance Current functional status- personal care: Requires minimal to moderate assistance Current functional status- driving: Dependent Current functional status- grocery shopping: Dependent Current functional status-house keeping: Dependent Current functional status- meal preparation: Dependent Do you have a PCP?: Yes Name of PCP: Dr Petra Bloom [facility] Care Agency: No Provider Services: No DME Company: No Equipment: Walker;Wheelchair: Manual;Shower Chair;Other Other equipment: [facility] does not have a glucometer nor a nebulizer Hemodialysis: No Community resources utilized: . [facility] Resources Fact Sheet;[facility] Indigent Health Care Program; Prescription Assistance Program(s);SSA/SSI/Medicaid;[employer] [place];[facility] Funding Resources: Self Pay Prescription coverage plan: Self Pay Pharmacy where meds are filled: Other Other pharmacy: [facility] Anticipated services prior to disharge: Continue Medical Eval;Lab Values; Reassess prior to discharge;Consult;PT/OT/ST Expected mode of discharge transportation: Same as support system Additional info required for discharge planning: Pending medical evaluation Recommended discharge plan: Home SFA Complete: Social Functional Assessment complete: Yes Alcohol Use Screening (AUDIT-C) How often do you have a drink containing alcohol?: Never(denied drinking problem contrary to H&P) SCORE: 0 Did patient elect to have resources provided: No Any issues or concerns with obtaining/affording your medications at home: yes. Describe: unfunded. States she cannot afford insulin. Are you or your support system able to picker tender medications at discharge: yes. Describe: spouse, son. Patient has been identified as at risk for suicide and has been provided resources for counseling and follow-up care for at risk suicide. Resources from the patient's county, [facility], were provided. Role of Care Management explained. Pt denied use of alcohol upon screening. Pt states she has been receiving meds for anxiety and depression through her PCP. Pt states she has not been receiving treatment from [facility] of [facility]. Pt reported she would be open to calling them and becoming a patient for assistance with . Pt states she is currently receiving Disability and is not eligible for Medicare. Pt states her spouse is not working and they have an 11 year old minor. Pt states she was told they make too much in income for food stamps. States her spouse is currently not working. SW referred to [place] for further assistance. Pt's dtr currently not insured. Pt states she is working on the application for Indigent Care with [facility] and was to turn it in today. Pt will have son assist in getting the application turned in on her behalf while admitted. SW provided [employer] bank information. SW referred to [facility] for assistance. Pt states she needs a glucometer, nebulizer and cannot afford insulin. States she has needles, and test strips. Pt states upon d/c will have support of spouse and son Arslan. JLUIS Guzman Serging Machine Operator Automatic/Care Management Office [phone] Azul Baez MD - 05/05/2019 6:15 AM CST MICU Progress/Transfer Note Date of Service: 05/05/2019 06:16 Reason for ICU admission: UGIB ICU Day: 3 Intubation Day: n/a Code Status: Full Last 24 hour events (major events): - excessive nausea Subjective: Patient states that she was able to tolerate her clear liquid diet and has minimal nausea. Ventilator Bundle: Sedation/Analgesia + RASS: none Stress ulcer prophylaxis: PPI DVT prophylaxis: contraindicated Insulin drip: no Nutrition: clear liquid diet Lines (with dates): 2 18 PIV Bailon: none Intake/Output: Intake/Output Summary (Last 24 hours) at 05/05/2019 0616 Last data filed at 05/05/2019 0600 Gross per 24 hour Intake 1860.5 ml Output 400 ml Net 1460.5 ml Physical Exam: Temp: [37 C (98.6 F)-37.6 C (99.7 F)] Heart Rate (monitor): [57-76] Pulse: [58-76] Resp: [11-18] BP: (93-149)/(61-83) MAP (mmHg): [72-101] Constitutional: alert and oriented x 4 (person, place, date/time and situation) ; no apparent distress HEENT: normocephalic atraumatic Resp: clear to auscultation bilaterally Cardio: regular rate and rhythm GI: distended, tender, + BS MSK: no clubbing, cyanosis, or edema Integ: no rashes Neuro: no focal deficits Labs (pertinent only)/Imaging: No final results containing an impression from the past 2 days were found. 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 Patient started on CLD. - consulted GI - c/w octreotide and protonix - ceftriaxone for SBP ppx (paracentesis negative for SBP) - 2 large bore IV - H/H q12h - Clear liquid diet ID No acute issues Renal CKD 1 - monitor as patient received contrasted study Endo DM - SSI OtherDVT prophylaxis:contraindicated Lines/Catheters: Insertion date:05/03, Location:20G left hand Insertion date:., Location:right arm 18 G Insertion date: 05/03 Location: right arm 18G Dispo: MICU Prognosis: guarded Azul Rondon MD Hospital Course: 43 Year-old F with PMH of ETOH cirrhosis c/b esophogeal varices s/p banding, DM who presents for melena. GI performed EGD and found 3 varices which were banded. Patient was started on CLD and toleratedwell. A STRATEGIST Associated attestation - David Denney DO - 05/05/2019 10:10 AM CSTI personally examined the patient on 05/05/[address] Rondon's fellow's note as written .I actively participated in the decision-making process. Please see the fellow's note for additionaldetails. Variceal bleeding s/p banding. C/w rocephin. C/w octreotide and protonix. David Denney DO Interventional Pulmonology Division of Pulmonary and Critical Care Medicine Rell Martinez MD - 05/05/2019 5:29 AM CST Gastroenterology and hepatology Progress Note Date of Service: 05/05/2019 05:29 Chief Complaint: Melena 24 Hour Events: - Slight drop in Hgb but no further episodes of overt bleeding. - Nausea and vomiting significantly improved. Subjective: Reported some pain in the chest, right sided. Nausea and vomiting improved. Physical exam: Temp: [37.1 C (98.8 F)-37.6 C (99.7 F)] Heart Rate (monitor): [68-76] Pulse: [67-76] Resp: [11-18] BP: (110-149)/(66-83) MAP (mmHg): [80-101] General: Alert, no apparent distress HEENT: No scleral icterus Lungs: Clear to auscultation bilateral, no wheezes or crackles CV: RRR, S1, S2 normal, no murmurs rubs or gallops, JVD not elevated. Abdomen: soft, nontender/nondistended, bowel sounds normoactive Extremities: 2+ edema. Labs/imaging/Endoscopy: Reviewed 05/03/2019 11:45 05/03/2019 16:55 05/04/2019 01:20 05/04/2019 06:33 05/04/2019 11:16 HGB 7.8 (L) 7.5 (L) 7.9 (L) 7.1 (L) 7.9 (L) 05/03/2019 08:23 APPEARANCE Light Yellow WBC COUNT 61 RBC COUNT <3,000 SEGS% 15 LYMPHS% 51 MACROPHG% 30 MESOS% 1 PLASMA HARJEET% 2 OTHR CELLS 1 #CELS CNTD 100 EGD 05/03/2019 - Recently bleeding large (> 5 mm) esophageal varices. Completely eradicated. Banded. - Red blood in the gastric fundus. - Portal hypertensive gastropathy. - Normal examined duodenum. - No specimens collected. CURRENT MEDICATIONS: Reviewed Assessment/Plan: UGIB 2 EV bleeding s/p EVL 05/03 Comment: Patient with EtOH-related cirrhosis, presented with Melena, EGD with evidence of recently bleeding large varices s/p EVL. Hgb remains stable with no further evidence of overt bleeding. Recommendations: - Continue to Monitor Hgb Q8h, transfuse if there is active bleeding or Hb<7. - Keep INR < 1.5, Plt > 50K and Fibrinogen > 200. - Continue with Protonix and Octreotide gtt to complete 72 hours after which she will need to be on Omeprazole 40 mg daily for 8 weeks and Propranolol 10 mg BID with titration for HR 60 (if HR and BP tolerates). - Rocephin for infection prophylaxis to complete 7 days. - Advance diet as tolerated. - Monitor color and character of bowel movement. - Use Viscous Lidocaine at 2% 10 mL PO q 4 hrs for 3 days. - Repeat EGD in 1 month. - Notify GI fellow cardiac catheterization technologist with any changes. Nausea & Vomiting, improved. Recommendations: - Please schedule Zofran Q6H and Phenergan PRN in between. QTc per primary team in the 430's. Decompensated EtOH-related cirrhosis, MELD 8 (d/b EV bleeding and ascites) Recommendations: - Ascites: Low sodium diet, Strict I/O's and daily weights. - Encephalopathy: Grade 0. Lactulose, titrate to achieve 2-3 loose bowel movements daily. - Varices EGD 05/03 with recently bleeding varices s/p EVL. Continue with Protonix and Octreotide gtt to complete 72 hours after which she will need to be on Omeprazole 40 mg daily for 8 weeks and Propranolol 10 mg BID with titration for HR 60 (if HR and BP tolerates). - SBP Ruled out - HCC Surveillance US 08/2018 with no focal lesions, CT this admission with no focal lesions (not a triple phase). Continue AFP and US every 6 months. - Immunity screening: vaccinate for HBV and HAV if not immune (outpatient). - Please consult CM and SW to assist in financial resources. - Follow up in Hepatology clinic upon discharge. Patient was seen and discussed with Dr. Conrad. GI will continue to follow. Please call with any questions. Rell Martinez MD PGY4 - Gastroenterology and hepatology Pager # : [phone] A STRATEGIST Associated attestation - Aaron Conrad MD - 05/05/2019 10:17 PM CSTI examined the patient on 05/05/[address] Martinez's note as written. I actively participated in the decision-making process. Please see the note for additional details. Corky Matamoros MD - 05/04/2019 6:56 PM MEDIA STRATEGIST Brief MICU Note Date: 05/04/2019 18:57 ICU day: 1 Intubation Day: N/A Code Status: FULL 12 Hour Events (should include: major events throughout the day, patient status , significant labs, radiology, consult updates): - continued to be nauseous throughout the day with periodic emesis. No blood noted. - Currently on scheduled Zofran with prn Phenergan. Do not give Tigan. Plan for next 12 hours (should include: anticipated events, complications to watch for, pending labs/radiology/consults): - H/H q12h - Viscous lidocaine 10 cc every 6 hours for chest pain - Inform GI fellow cardiac catheterization technologist if hematemesis. - Currently attempting clear liquid diet. Corky Matamoros MD l-Rell Reynoso MD - 05/04/2019 7:45 AM CST Gastroenterology and hepatology Progress Note Date of Service: 05/04/2019 07:45 Chief Complaint: Melena 24 Hour Events: - Underwent EGD, results below. - Hgb remains stable with no further episodes of bleeding. - SBP ruled out Subjective: Reported nausea, vomiting but no abdominal pain. Vomitus seen at bedside green in color. Physical exam: Temp: [36.2 C (97.2 F)-37.7 C (99.9 F)] Heart Rate (monitor): [68-82] Pulse: [68-81] Resp: [8-30] BP: (97-136)/(63-89) MAP (mmHg): [75-97] General: Alert, no apparent distress HEENT: No scleral icterus Lungs: Clear to auscultation bilateral, no wheezes or crackles CV: RRR, S1, S2 normal, no murmurs rubs or gallops, JVD not elevated. Abdomen: soft, nontender/nondistended, bowel sounds normoactive Extremities: 2+ edema. Labs/imaging/Endoscopy: Reviewed 05/03/2019 11:45 05/03/2019 16:55 05/04/2019 01:20 05/04/2019 06:33 05/04/2019 11:16 HGB 7.8 (L) 7.5 (L) 7.9 (L) 7.1 (L) 7.9 (L) 05/03/2019 08:23 APPEARANCE Light Yellow WBC COUNT 61 RBC COUNT <3,000 SEGS% 15 LYMPHS% 51 MACROPHG% 30 MESOS% 1 PLASMA HARJEET% 2 OTHR CELLS 1 #CELS CNTD 100 EGD 05/03/2019 - Recently bleeding large (> 5 mm) esophageal varices. Completely eradicated. Banded. - Red blood in the gastric fundus. - Portal hypertensive gastropathy. - Normal examined duodenum. - No specimens collected. CURRENT MEDICATIONS: Reviewed Assessment/Plan: UGIB 05/04 EV bleeding s/p EVL 05/03 Comment: Patient with EtOH-related cirrhosis, presented with Melena, EGD with evidence of recently bleeding large varices s/p EVL. Hgb remains stable with no further evidence of overt bleeding. Recommendations: - Continue to Monitor Hgb Q8h, transfuse if there is active bleeding or Hb<7. - Keep INR < 1.5, Plt > 50K and Fibrinogen > 200. - Continue with Protonix and Octreotide gtt to complete 72 hours after which she will need to be on Omeprazole 40 mg daily for 8 weeks and Propranolol 10 mg BID with titration for HR 60 (if HR and BP tolerates). - Rocephin for infection prophylaxis to complete 7 days. - Advance diet as tolerated. - Monitor color and character of bowel movement. - Use Viscous Lidocaine at 2% 10 mL PO q 4 hrs for 3 days. - Repeat EGD in 1 month. - Notify GI fellow cardiac catheterization technologist with any changes. Nausea & Vomiting Recommendations: - Please schedule Zofran Q6H and Phenergan PRN in between. QTc per primary team in the 430's. Decompensated EtOH-related cirrhosis, MELD 8 (d/b EV bleeding and ascites) Recommendations: - Ascites: Low sodium diet, Strict I/O's and daily weights. - Encephalopathy: Grade 0. Lactulose, titrate to achieve 2-3 loose bowel movements daily. - Varices EGD 05/03 with recently bleeding varices s/p EVL. Continue with Protonix and Octreotide gtt to complete 72 hours after which she will need to be on Omeprazole 40 mg daily for 8 weeks and Propranolol 10 mg BID with titration for HR 60 (if HR and BP tolerates). - SBP Ruled out - HCC Surveillance US 08/2018 with no focal lesions, CT this admission with no focal lesions (not a triple phase). Continue AFP and US every 6 months. - Immunity screening: vaccinate for HBV and HAV if not immune (outpatient). - Please consult CM and SW to assist in financial resources. - Follow up in Hepatology clinic upon discharge. Patient was seen and discussed with Dr. Holliday. GI will continue to follow. Please call with any questions. Rell Martinez MD PGY4 - Gastroenterology and hepatology Pager # : [phone] A STRATEGIST Associated attestation - Mya Holliday MD - 05/05/2019 7:[address]ST[address] discussion with Dr. Khan, I examined this patient. I agree with fellow's note as written. Mya Holliday MD Gastroenterology and Hepatology #[id number] Nicole Prasad MD - 05/04/2019 1:58 AM CST MICU Progress Note Date of Service: 05/04/2019 01:59 Reason for ICU admission: UGIB ICU Day:2 Intubation Day: NA Code Status: Full Last 24 hour events (major events): - GI performed EGD that showed 3 columns of esophogeal varices, 3 bands placed Subjective: Reports that she is still very nauseous. Has abdominal pain similar to presentation Lines (with dates): see below [place]: Intake/Output: Intake/Output Summary (Last 24 hours) at 05/04/2019 0159 Last data filed at 05/03/2019 1804 Gross per 24 hour Intake 1852.6 ml Output Net 1852.6 ml Physical Exam: Temp: [35.8 C (96.5 F)-37.7 C (99.9 F)] Heart Rate (monitor): [70-82] Pulse: [70-88] Resp: [8-30] BP: (104-136)/(56-89) MAP (mmHg): [74-97] Constitutional: alert and oriented x 3 (person, place and situation); no apparent distress HEENT: normocephalic atraumatic Resp: clear to auscultation bilaterally Cardio: regular rate and rhythm GI: distended Neuro: +asterixis Labs (pertinent only)/Imaging: reviewed Microbiology: Body fluid culture -pending Assessment/Plan: Rosanna York is a 43 year old female admitted with anemia secondary to GIB Neuro No acute issues Resp No acute issues Cardiovascular No acute issues FEN/GI Melena / UGIB Colitis vs portal colopathy Decompensated ETOH cirrhosis Hx of esophogeal varices s/p 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 - consulted GI - c/w octreotide and protonix - ceftriaxone for SBP ppx (paracentesis negative for SBP) - orthostatic vitals - 2 large bore IV - H/H Q6h - lactulose once patient is not NPO ID No acute issues Renal CKD 1 - monitor as patient received contrasted study Endo DM - SSI OtherDVT prophylaxis: contraindicated Lines/Catheters: Insertion date: 05/03, Location: 20G left hand Insertion date: 05.03, Location: right arm 18 G Insertion date: 05/03 Location: right arm 18G Dispo: Prognosis: guarded Code Status: FULL Nicole Prasad MD End of daily progress Note Hospital Course: 43 Year-old F with PMH of ETOH cirrhosis c/b esophogeal varices s/p banding, DM who presents for melena. GI performed EGD and found 3 varices which were banded. A STRATEGIST Associated attestation - Ace Greenberg MD - 05/04/2019 11:38 AM CSTI personally examined the patient on 05/04/[address] Prasad's resident note as written . I actively participated in the decision-making process. Please see the resident's note for additional details. Alvarez Rubin MBBS - 05/03/2019 1:50 PM CSTBrief progress notes: EGD completed. Full report to follow 3 columns of moderate size varices found in lower esophagus with red georgina signs. 3 bands placed successfully with no bleeding. Has bright red blood in stomach (indicative of recent bleed). No other source of bleeding found. We believe she has variceal bleed. Recommendations: Continue Protonix and octreotide drip x 72 hrs. After 72 hrs, stop octreotide drip and continue Protonix once a day. Repeat Endoscopy in 4 weeks - variceal surveillance. Case request placed H/H Q 6 hrs and transfuse to keep HB>7 IV abx for one week to finish course NPO Until 200 PM tomorrow Viscous lidocaine 5 ml every 4-6 hrs for chest pain from banding Clear liquid diet at 200 PM if HB stays stable and no further bleeding for one day and then soft diet. No regular food as there is a risk of dislodgement of bands and bleeding. Please notify GI fellow cardiac catheterization technologist with any change in clinical situation. Dr. Alvarez Rubin PGY-4 Division of Gastroenterology and Hepatology Pager: [phone] Corky Wilson MD - 05/03/2019 12:00 PM MEDIA STRATEGIST Brief MICU Note Date: 05/03/2019 12:00 ICU day: 1 Intubation Day: N/A Code Status: FULL 12 Hour Events (should include: major events throughout the day, patient status , significant labs, radiology, consult updates): - EGD: 3 columns of moderate size varices with red georgina signs. 3 bands placed successfully with no bleeding. - C/w PPI and Octreotide for 72 hours. (End time in place) - NPO until 2:00 pm tomorrow. Plan for next 12 hours (should include: anticipated events, complications to watch for, pending labs/radiology/consults): - H/H q6h - Viscous lidocaine 10 cc every 4-6 hours for chest pain - Continues to have Intractable Nausea and vomiting. Follow up KUB. - Currently on Tigan and Phenergan. Corky Matamoros MD documented in this encounter Plan of Treatment Date Type Specialty Care Team Description 05/14/2019 Office Visit Orthopedic Surgery David Palacio MD [address] [place] [address] [phone] Name Type Priority Associated Date/Time Diagnoses Transfuse Packed Transfusion Routine 05/03/2019 3:55 RBC (in units): 2 Administration AM MEDIA STRATEGIST Units~As soon as possible; Infuse Each Unit Over: < 1 Hour Transfuse Packed Transfusion Routine 05/03/2019 3:55 RBC (in units) Administration AM MEDIA STRATEGIST BODY FLUID (BACTEC LAB ADEEL 05/03/2019 8:23 BOTTLE) AM MEDIA STRATEGIST ALBUMIN BODY FLUID LAB Routine 05/06/2019 6:27 PM MEDIA STRATEGIST BODY FLUID LAB Routine 05/06/2019 6:27 CULTURE(AEROBIC/AN PM MEDIA STRATEGIST AEROBIC) Name Type Priority Associated Diagnoses Order Schedule BASIC METABOLIC LAB ADEEL EVERY MORNING AT 0400 PANEL (NA, K, CL, until discontinued CO2, GLUCOSE, BUN, starting 05/04/2019, 4 CREATININE, CA) completed EKG-12 LEAD ROUTINE HEART STATION STAT ONCE for 1 Occurrences starting 05/04/2019 until 05/04/2019 ALBUMIN BODY FLUID LAB Routine ONCE for 1 Occurrences starting 05/06/2019 until 05/06/2019, 1 completed MAGNESIUM LAB Routine EVERY 24 HOURS (START TIME ADJUSTABLE) until discontinued starting 05/07/2019, 1 completed PROFILE / HEMOGRAM LAB Routine EVERY 24 HOURS (START TIME ADJUSTABLE) until discontinued starting 05/07/2019, 1 completed Health Maintenance Due Date Last Done Comments EYE EXAM 1984 URINE MICROALBUMIN 1984 DTaP,Tdap,and Td Vaccines (1 - 1985 04/02/2008 Tdap) FOOT EXAM 1992 Breast Cancer Screening 2014 (MAMMOGRAM) PAP SMEAR 05/09/2016 05/09/2013, 10/29/2007 LDL-C 09/23/2019 09/22/2018 HgA1C 10/08/2019 04/09/2019, 09/22/2018, 11/05/2007 CREATININE (SERUM) 05/06/2020 05/06/2019, 05/05/2019, 05/04/2019, Additional history exists INFLUENZA VACCINE Completed 04/17/2019 PNEUMOCOCCAL 0-64 YEARS COMBINED Completed 04/17/2019 SERIES documented as of this encounter Implants Implanted Type Area Engraver [employer] Device Shelf Model / Identifier Expiration Serial / Date Lot Six Shooter Farhat Multi-Band Ligater Band [employer] 06/13/2019 MBL-6 -F / Implanted: Qty: 3 on 05/03/2019 by Mya Holliday MD at [facility] 0 / [id number] Implant Orthopedic Endcap NAIL Right: [employer] 10/30/2021 [id number] / Implanted: Qty: 2 on 12/03/2018 by Ric Sal MD at [facility] NA / [id number] Nail Intramedullary 10mm Elle 22cml NAIL Right: [employer] 07/30/2021 [id number] / Implanted: Qty: 1 on 12/03/2018 by Ric Sal MD at [facility] NA / [id number] Screw Bone Compression 5mm Elle 85mml SCREW Right: [employer] 2020 [id number] / Implanted: Qty: 1 on 12/03/2018 by Ric Sal MD at [facility] NA / [id number] Screw Bone Compression 5mm Elle 30mml SCREW Right: [employer] 2020 [id number] / Implanted: Qty: 1 on 12/03/2018 by Ric Sal MD at [facility] NA / [id number] Screw Bone Compression 5mm Elle 30mml SCREW Right: [employer] 2020 [id number] / Implanted: Qty: 1 on 12/03/2018 by Ric Sal MD at [facility] NA / [id number] Rode Right: Leg Screw-03/08/2018 Right: Implanted: 03/08/2018 (Quantity not on file) Knee Foam Pack, Sheba Vitoss Bb Trauma 10cc #[id number] - Sna Right: [place] 05/30/2020 / Implanted: Qty: 1 on 12/03/2018 by Ric Sal MD at [facility] RUTHER GLEN AT [facility] NA / [id number] documented as of this encounter Procedures Procedure Name Priority Date/Time Associated Comments Diagnosis POCT GLUCOSE (AUTOMATED) Routine 05/07/2019 Results for 12:42 PM MEDIA STRATEGIST this procedure are in the results section. POCT GLUCOSE (AUTOMATED) Routine 05/07/2019 Results for 9:00 AM MEDIA STRATEGIST this procedure are in the results section. POCT GLUCOSE (AUTOMATED) Routine 05/07/2019 Results for 6:18 AM MEDIA STRATEGIST this procedure are in the results section. PROFILE / HEMOGRAM Routine 05/07/2019 Results for 4:37 AM MEDIA STRATEGIST this procedure are in the results section. BASIC METABOLIC PANEL (NA, K, Routine 05/07/2019 Results for CL, CO2, GLUCOSE, BUN, 4:37 AM MEDIA STRATEGIST this CREATININE, CA) procedure are in the results section. MAGNESIUM Routine 05/07/2019 Results for 4:37 AM MEDIA STRATEGIST this procedure are in the results section. LACTATE DEHYDROGENASE Routine 05/07/2019 Results for 4:37 AM MEDIA STRATEGIST this procedure are in the results section. POCT GLUCOSE (AUTOMATED) Routine 05/07/2019 Results for 12:05 AM MEDIA STRATEGIST this procedure are in the results section. LACTATE DEHYDROGENASE Routine 05/06/2019 Results for 6:42 PM MEDIA STRATEGIST this procedure are in the results section. POCT GLUCOSE (AUTOMATED) Routine 05/06/2019 Results for 6:30 PM MEDIA STRATEGIST this procedure are in the results section. LDH TOTAL BODY FLUID Routine 05/06/2019 Results for 6:27 PM MEDIA STRATEGIST this procedure are in the results section. BODY FLUID DIRECT COUNT Routine 05/06/2019 Results for 6:27 PM MEDIA STRATEGIST this procedure are in the results section. BODY FLUID MANUAL DIFF Routine 05/06/2019 Results for 6:27 PM MEDIA STRATEGIST this procedure are in the results section. BODY FLUID DIRECT COUNT Routine 05/06/2019 Results for 6:27 PM MEDIA STRATEGIST this procedure are in the results section. LACTATE DEHYDROGENASE Routine 05/06/2019 Results for 6:27 PM MEDIA STRATEGIST this procedure are in the results section. PROFILE / HEMOGRAM Routine 05/06/2019 Results for 4:05 PM MEDIA STRATEGIST this procedure are in the results section. POCT GLUCOSE (AUTOMATED) Routine 05/06/2019 Results for 12:06 PM MEDIA STRATEGIST this procedure are in the results section. POCT GLUCOSE (AUTOMATED) Routine 05/06/2019 Results for 8:26 AM MEDIA STRATEGIST this procedure are in the results section. XR CHEST 1 VW ADEEL 05/06/2019 Gastrointestinal Results for 8:13 AM MEDIA STRATEGIST hemorrhage, this unspecified procedure gastrointestinal are in the hemorrhage type results section. POCT GLUCOSE (AUTOMATED) Routine 05/06/2019 Results for 6:07 AM MEDIA STRATEGIST this procedure are in the results section. ACTIVATED PARTIAL THRMPLAS CRISTINA Routine 05/06/2019 Results for 5:15 AM MEDIA STRATEGIST this procedure are in the results section. PROFILE / HEMOGRAM Routine 05/06/2019 Results for 5:15 AM MEDIA STRATEGIST this procedure are in the results section. BASIC METABOLIC PANEL (NA, K, Routine 05/06/2019 Results for CL, CO2, GLUCOSE, BUN, 5:15 AM MEDIA STRATEGIST this CREATININE, CA) procedure are in the results section. POCT GLUCOSE (AUTOMATED) Routine 05/06/2019 Results for 12:28 AM MEDIA STRATEGIST this procedure are in the results section. POCT GLUCOSE (AUTOMATED) Routine 05/05/2019 Results for 6:09 PM MEDIA STRATEGIST this procedure are in the results section. PROFILE / HEMOGRAM ADEEL 05/05/2019 Results for 4:11 PM MEDIA STRATEGIST this procedure are in the results section. POCT GLUCOSE (AUTOMATED) Routine 05/05/2019 Results for 11:33 AM MEDIA STRATEGIST this procedure are in the results section. TRANSFUSE PACKED RBC Routine 05/05/2019 11:23 AM MEDIA STRATEGIST PREPARE PACKED RBC Routine 05/05/2019 Results for 9:04 AM MEDIA STRATEGIST this procedure are in the results section. US ABDOMEN LIMITED WITH ADEEL 05/05/2019 Gastrointestinal Results for DOPPLER 6:56 AM MEDIA STRATEGIST hemorrhage, this unspecified procedure gastrointestinal are in the hemorrhage type results section. ACTIVATED PARTIAL THRMPLAS CRISTINA ADEEL 05/05/2019 Results for 5:29 AM MEDIA STRATEGIST this procedure are in the results section. PROFILE / HEMOGRAM ADEEL 05/05/2019 Results for 5:29 AM MEDIA STRATEGIST this procedure are in the results section. BASIC METABOLIC PANEL (NA, K, ADEEL 05/05/2019 Results for CL, CO2, GLUCOSE, BUN, 5:29 AM MEDIA STRATEGIST this CREATININE, CA) procedure are in the results section. POCT GLUCOSE (AUTOMATED) Routine 05/05/2019 Results for 5:24 AM MEDIA STRATEGIST this procedure are in the results section. XR KUB STAT 05/05/2019 Gastrointestinal Results for 4:00 AM MEDIA STRATEGIST hemorrhage, this unspecified procedure gastrointestinal are in the hemorrhage type results section. POCT GLUCOSE (AUTOMATED) Routine 05/04/2019 Results for 11:45 PM MEDIA STRATEGIST this procedure are in the results section. EKG-12 LEAD Routine 05/04/2019 11:34 PM MEDIA STRATEGIST PROFILE / HEMOGRAM ADEEL 05/04/2019 Results for 5:43 PM MEDIA STRATEGIST this procedure are in the results section. POCT GLUCOSE (AUTOMATED) Routine 05/04/2019 Results for 5:41 PM MEDIA STRATEGIST this procedure are in the results section. POCT GLUCOSE (AUTOMATED) Routine 05/04/2019 Results for 11:58 AM MEDIA STRATEGIST this procedure are in the results section. EKG-12 LEAD Routine 05/04/2019 11:57 AM MEDIA STRATEGIST EXTRA TUBE LT. GREEN ADEEL 05/04/2019 11:16 AM MEDIA STRATEGIST PROFILE / HEMOGRAM ADEEL 05/04/2019 Results for 11:16 AM MEDIA STRATEGIST this procedure are in the results section. AMMONIA, PLASMA ADEEL 05/04/2019 Results for 11:16 AM MEDIA STRATEGIST this procedure are in the results section. POCT GLUCOSE (AUTOMATED) Routine 05/04/2019 Results for 8:04 AM MEDIA STRATEGIST this procedure are in the results section. PROFILE / HEMOGRAM ADEEL 05/04/2019 Results for 6:33 AM MEDIA STRATEGIST this procedure are in the results section. ACTIVATED PARTIAL THRMPLAS CRISTINA ADEEL 05/04/2019 Results for 4:57 AM MEDIA STRATEGIST this procedure are in the results section. BASIC METABOLIC PANEL (NA, K, ADEEL 05/04/2019 Results for CL, CO2, GLUCOSE, BUN, 4:57 AM MEDIA STRATEGIST this CREATININE, CA) procedure are in the results section. PROFILE / HEMOGRAM ADEEL 05/04/2019 Results for 1:20 AM MEDIA STRATEGIST this procedure are in the results section. POCT GLUCOSE (AUTOMATED) Routine 05/03/2019 Results for 9:58 PM MEDIA STRATEGIST this procedure are in the results section. HEPATITIS B SURFACE ANTIBODY ADEEL 05/03/2019 Results for 4:55 PM MEDIA STRATEGIST this procedure are in the results section. PROFILE / HEMOGRAM Routine 05/03/2019 Results for 4:55 PM MEDIA STRATEGIST this procedure are in the results section. POCT GLUCOSE (AUTOMATED) Routine 05/03/2019 Results for 4:51 PM MEDIA STRATEGIST this procedure are in the results section. ESOPHAGOGASTRODUODENOSCOPY Level 2 05/03/2019 Esophageal varices (within 6 12:51 PM MEDIA STRATEGIST hours) POCT GLUCOSE (AUTOMATED) Routine 05/03/2019 Results for 11:49 AM MEDIA STRATEGIST this procedure are in the results section. PROFILE / HEMOGRAM STAT 05/03/2019 Results for 11:45 AM MEDIA STRATEGIST this procedure are in the results section. EGD (ENDO) Routine 05/03/2019 11:36 AM MEDIA STRATEGIST TEST, URINE ADEEL 05/03/2019 Results for 11:27 AM MEDIA STRATEGIST this procedure are in the results section. TRANSFUSE PACKED RBC Routine 05/03/2019 11:14 AM MEDIA STRATEGIST PREPARE PACKED RBC Routine 05/03/2019 Results for 10:00 AM MEDIA STRATEGIST this procedure are in the results section. POCT GLUCOSE (AUTOMATED) Routine 05/03/2019 Results for 8:43 AM MEDIA STRATEGIST this procedure are in the results section. PROFILE / HEMOGRAM STAT 05/03/2019 Results for 8:31 AM MEDIA STRATEGIST this procedure are in the results section. LACTATE DEHYDROGENASE ADEEL 05/03/2019 Results for 8:31 AM MEDIA STRATEGIST this procedure are in the results section. LDH TOTAL BODY FLUID ADEEL 05/03/2019 Results for 8:23 AM MEDIA STRATEGIST this procedure are in the results section. BODY FLUID DIRECT COUNT ADEEL 05/03/2019 Results for 8:23 AM MEDIA STRATEGIST this procedure are in the results section. BODY FLUID MANUAL DIFF ADEEL 05/03/2019 Results for 8:23 AM MEDIA STRATEGIST this procedure are in the results section. BODY FLUID (BACTEC BOTTLE) ADEEL 05/03/2019 8:23 AM MEDIA STRATEGIST BODY FLUID DIRECT COUNT ADEEL 05/03/2019 Results for 8:23 AM MEDIA STRATEGIST this procedure are in the results section. LACTATE DEHYDROGENASE ADEEL 05/03/2019 Results for 8:23 AM MEDIA STRATEGIST this procedure are in the results section. T.PROTEIN BODY FLUID ADEEL 05/03/2019 Results for 8:23 AM MEDIA STRATEGIST this procedure are in the results section. ALBUMIN BODY FLUID ADEEL 05/03/2019 Results for 8:23 AM MEDIA STRATEGIST this procedure are in the results section. GLUCOSE BODY FLUID ADEEL 05/03/2019 Results for 8:23 AM MEDIA STRATEGIST this procedure are in the results section. MRSA / MSSA SCREEN BY PCR, ADEEL 05/03/2019 Results for NARES 8:12 AM MEDIA STRATEGIST this procedure are in the results section. HB ABO GROUPING STAT 05/03/2019 Results for 6:35 AM MEDIA STRATEGIST this procedure are in the results section. CBC WITH DIFFERENTIAL STAT 05/03/2019 Results for 6:34 AM MEDIA STRATEGIST this procedure are in the results section. FIBRINOGEN STAT 05/03/2019 Results for 6:34 AM MEDIA STRATEGIST this procedure are in the results section. PROTHROMBIN TIME / INR STAT 05/03/2019 Results for 6:34 AM MEDIA STRATEGIST this procedure are in the results section. CBC WITH DIFFERENTIAL STAT 05/03/2019 Results for 6:34 AM MEDIA STRATEGIST this procedure are in the results section. BASIC METABOLIC PANEL (NA, K, STAT 05/03/2019 Results for CL, CO2, GLUCOSE, BUN, 6:34 AM MEDIA STRATEGIST this CREATININE, CA) procedure are in the results section. HEPATIC FUNCTION PANEL (50220) STAT 05/03/2019 Results for (ALB,T.PRO,BILI 6:34 AM MEDIA STRATEGIST this T,BU/BC,ALT,AST,ALK PHOS) procedure are in the results section. PREPARE PACKED RBC Routine 05/03/2019 Lower abdominal Results for 3:43 AM MEDIA STRATEGIST pain this Gastrointestinal procedure hemorrhage, are in the unspecified results gastrointestinal section. hemorrhage type CRITICAL CARE Routine 05/03/2019 Results for 3:30 AM MEDIA STRATEGIST this procedure are in the results section. CT ABDOMEN PELVIS W WO STAT 05/03/2019 Lower abdominal Results for CONTRAST 2:42 AM MEDIA STRATEGIST pain this Gastrointestinal procedure hemorrhage, are in the unspecified results gastrointestinal section. hemorrhage type HB ABO GROUPING ADEEL 05/03/2019 Lower abdominal Results for 1:30 AM MEDIA STRATEGIST pain this Gastrointestinal procedure hemorrhage, are in the unspecified results gastrointestinal section. hemorrhage type CBC WITH DIFFERENTIAL STAT 05/03/2019 Lower abdominal Results for 1:24 AM MEDIA STRATEGIST pain this procedure are in the results section. CBC WITH DIFFERENTIAL Routine 05/03/2019 Lower abdominal Results for 1:24 AM MEDIA STRATEGIST pain this procedure are in the results section. BASIC METABOLIC PANEL (NA, K, STAT 05/03/2019 Lower abdominal Results for CL, CO2, GLUCOSE, BUN, 1:24 AM MEDIA STRATEGIST pain this CREATININE, CA) procedure are in the results section. HEPATIC FUNCTION PANEL (38638) STAT 05/03/2019 Lower abdominal Results for (ALB,T.PRO,BILI 1:24 AM MEDIA STRATEGIST pain this T,BU/BC,ALT,AST,ALK PHOS) procedure are in the results section. LIPASE STAT 05/03/2019 Lower abdominal Results for 1:24 AM MEDIA STRATEGIST pain this procedure are in the results section. CONSENT/REFUSAL FOR DIAGNOSIS Routine 05/03/2019 AND TREATMENT 12:51 AM MEDIA STRATEGIST AGREEMENTS AUTHORIZATIONS AND Routine 05/03/2019 IRREVOCABLE ASSIGNMENTS (FORM 12:01 AM MEDIA STRATEGIST 2000) DISCLOSURE AND CONSENT, Routine 05/03/2019 MEDICAL AND SURGICAL 12:01 AM MEDIA STRATEGIST PROCEDURES EMERGENCY DEPARTMENT DOCUMENTS Routine 05/03/2019 12:01 AM MEDIA STRATEGIST documented in this encounter Results POCT GLUCOSE (AUTOMATED) (05/07/2019 12:42 PM MEDIA STRATEGIST) POCT GLU 173 (H) 70 - 110 mg/dL [facility] Specimen Blood Performing Organization Address [facility] Phone Number [facility] CLIA: [id number], [address] [place] [phone] [facility] POCT GLUCOSE (AUTOMATED) (05/07/2019 9:00 AM MEDIA STRATEGIST) POCT GLU 112 (H) 70 - 110 mg/dL [facility] Specimen Blood Performing Organization Address City/[facility] Phone Number [facility] CLIA: [id number], [address] [place] [phone] [facility] POCT GLUCOSE (AUTOMATED) (05/07/2019 6:18 AM MEDIA STRATEGIST) POCT GLU 258 (H) 70 - 110 mg/dL [facility] Specimen Blood Performing Organization Address [facility] Phone Number [facility] CLIA: [id number], [address] [place] [phone] [facility] PROFILE / HEMOGRAM (05/07/2019 4:37 AM MEDIA STRATEGIST) WBC 4.11 (L) 4.30 - 11.10 [facility] 10*3/L SERVICES RBC 2.86 (L) 3.93 - 5.25 [facility] 10*6/L SERVICES HGB 8.2 (L) 11.6 - 15.0 [facility] g/dL SERVICES HCT 26.6 (L) 35.7 - 45.2 % [facility] MCH 28.7 25.9 - 32.8 pg [facility] SERVICES MCV 93.0 80.6 - 95.5 fL [facility] SERVICES MCHC 30.8 (L) 31.6 - 35.1 [facility] g/dL SERVICES PLT 87 (L) 166 - 358 [facility] 10*3/L SERVICES MPV 10.3 9.5 - 12.9 fL [facility] SERVICES RDW-CV 19.8 (H) 12.0 - 15.5 % [facility] SERVICES RDW-SD 66.8 (H) 39.0 - 49.9 fL [facility] NRBC x10^3 <0.01 10*3/L [facility] SERVICES NRBC/100 WBC 0.0 0.0 - 10.0 [facility] /100 WBCs SERVICES IPF % 3.1Comment: Platelet 1.3 - 7.7 % [facility] count measured by SERVICES fluorescence method. Specimen Blood - ARM, LEFT Performing Organization Address [facility] Phone Number [facility] CLIA: [id number], [address] [place] [address] [phone] [facility] MAGNESIUM (05/07/2019 4:37 AM MEDIA STRATEGIST) MAGNESIUM 1.5 (L) 1.7 - 2.4 mg/dL [facility] Specimen Blood - ARM, LEFT Performing Organization Address [facility] Phone Number [facility] CLIA: [id number], [address] [place] [address] [phone] [facility] LACTATE DEHYDROGENASE (05/07/2019 4:37 AM MEDIA STRATEGIST) LDH 383 300 - 600 U/L [facility] Specimen Blood - ARM, LEFT Performing Organization Address [facility] Phone Number [facility] CLIA: [id number], [address] [place] [address] [phone] [facility] BASIC METABOLIC PANEL (NA, K, CL, CO2, GLUCOSE, BUN, CREATININE, CA) (2019 4:37 AM MEDIA STRATEGIST) NA 138 135 - 145 [facility] mmol/L SERVICES K 3.7 3.5 - 5.0 [facility] mmol/L SERVICES CL 105 98 - 108 mmol/L [facility] CO2 TOTAL 22 (L) 23 - 31 mmol/L [facility] AGAP 11 2 - 16 [facility] SERVICES BUN 7 7 - 23 mg/dL [facility] SERVICES GLUCOSE 223 (H) 70 - 110 mg/dL [facility] CREATININE 0.94 0.50 - 1.04 [facility] mg/dL SERVICES CALCIUM 7.9 (L) 8.6 - 10.6 [facility] mg/dL SERVICES eGFR Calculation 64.7 mL/min/1.73m2 [facility] (Non- SERVICES Swedish) eGFR Calculation 78.4 mL/min/1.73m2 [facility] () SERVICES Specimen Blood - ARM, LEFT Narrative Performed At Association of Glomerular Filtration Rate (GFR) and Staging [facility] of Kidney Disease* + [...] abnormalities in imaging tests). Performing Organization Address City/[facility] Phone Number [facility] CLIA: [id number], [address] [place] [address] [phone] [facility] POCT GLUCOSE (AUTOMATED) (05/07/2019 12:05 AM MEDIA STRATEGIST) [facility] Signature POCT GLU 244 (H) 70 - 110 mg/dL [facility] Specimen Blood Performing Organization Address City/[facility]/Zipcode Phone Number [facility] CLIA: [id number], [address] [place] [address] [phone] [facility] LACTATE DEHYDROGENASE (05/06/2019 6:42 PM MEDIA STRATEGIST) LDH 439 300 - 600 U/L [facility] Specimen Blood - ARM, LEFT Performing Organization Address City/[facility] Phone Number [facility] CLIA: [id number], [address] [place], [place] [phone] [facility] POCT GLUCOSE (AUTOMATED) (05/06/2019 6:30 PM MEDIA STRATEGIST) POCT GLU 186 (H) 70 - 110 mg/dL [facility] Specimen Blood Performing Organization Address [facility] Phone Number [facility] CLIA: [id number], [address] [place], [place] [phone] [facility] BODY FLUID MANUAL DIFF (05/06/2019 6:27 PM MEDIA STRATEGIST) BF SEGS 3 % [facility] BF LYMPHS 90 % [facility] MACROPHAGE 3 % [facility] MESOS 4 % [facility] #CELS CNTD 100 [facility] Specimen Fluid - ASCITES Performing Organization Address [facility] Phone Number [facility] CLIA: [id number], [address] [place] [address] [phone] [facility] LDH TOTAL BODY FLUID (05/06/2019 6:27 PM MEDIA STRATEGIST) LDH BF 107 U/L [facility] UNSPUN BODY FLUID Light Yellow [facility] COLOR SERVICES UNSPUN BODY FLUID Slightly Cloudy [facility] CLARITY SERVICES SPUN BODY FLUID Light Yellow [facility] COLOR SERVICES SPUN BODY FLUID Clear [facility] CLARITY SERVICES Sediment The sediment [facility] volume is <0.11 SERVICES mLs of the total fluid volume of 6mL and its color is red. Specimen Fluid - ASCITES Narrative Performed At Test developed and characteristics determined by [facility] Laboratory Services. Performing Organization Address City/[facility] Phone Number [facility] CLIA: [id number], [address] [place] [address] [phone] [facility] BODY FLUID DIRECT COUNT (05/06/2019 6:27 PM MEDIA STRATEGIST) BF COLOR Light Yellow [facility] BF WBC Count 60 /L [facility] BF RBC Count <3000 /L [facility] Specimen Fluid - ASCITES Narrative Performed At The reference range and other method performance [facility] specifications have not been established for this body fluid. The test results must be integrated into the clinical context for interpretation. Performing Organization Address City/State/Zipcode Phone Number [facility] CLIA: [id number], [address] [place] [address] [phone] [facility] PROFILE / HEMOGRAM (05/06/2019 4:05 PM MEDIA STRATEGIST) WBC 4.54 4.30 - 11.10 [facility] 10*3/L SERVICES RBC 3.06 (L) 3.93 - 5.25 [facility] 10*6/L SERVICES HGB 8.9 (L) 11.6 - 15.0 [facility] g/dL SERVICES HCT 28.3 (L) 35.7 - 45.2 % [facility] SERVICES MCH 29.1 25.9 - 32.8 pg [facility] SERVICES MCV 92.5 80.6 - 95.5 fL [facility] SERVICES MCHC 31.4 (L) 31.6 - 35.1 [facility] g/dL SERVICES PLT 95 (L) 166 - 358 [facility] 10*3/L SERVICES MPV 9.5 9.5 - 12.9 fL [facility] RDW-CV 20.2 (H) 12.0 - 15.5 % [facility] RDW-SD 67.8 (H) 39.0 - 49.9 fL [facility] NRBC x10^3 <0.01 10*3/L [facility] NRBC/100 WBC 0.0 0.0 - 10.0 [facility] /100 WBCs SERVICES IPF % 1.5Comment: Platelet 1.3 - 7.7 % [facility] count measured by SERVICES fluorescence method. Specimen Blood - VENOUS Performing Organization Address City/State/Zipcode Phone Number [facility] CLIA: [id number], [address] [place] [phone] [facility] POCT GLUCOSE (AUTOMATED) (05/06/2019 12:06 PM MEDIA STRATEGIST) POCT GLU 272 (H) 70 - 110 mg/dL [facility] Specimen Blood Performing Organization Address City/[facility]/Zipcode Phone Number [facility] CLIA: [id number], [address] [place] [phone] [facility] POCT GLUCOSE (AUTOMATED) (05/06/2019 8:26 AM MEDIA STRATEGIST) POCT GLU 145 (H) 70 - 110 mg/dL [facility] Specimen Blood Performing Organization Address City/[facility] Phone Number [facility] CLIA: [id number], [address] [place] [phone] [facility] XR CHEST 1 VW (05/06/2019 8:13 AM MEDIA STRATEGIST) Specimen Narrative Performed At EXAM: XR CHEST 1 VW PACS/VR/DOSE HISTORY: Please evaluate for pulmonary edema COMPARISON: None. FINDINGS: The lungs are poorly expanded and show basilar subsegmental atelectasis on both sides but are clear otherwise. The heart and great vessels are normal. Procedure Note [facility], Radiant Results Inft User - 05/06/2019 8:53 AM MEDIA STRATEGIST EXAM: XR CHEST 1 VW HISTORY: Please evaluate for pulmonary edema COMPARISON: None. FINDINGS: The lungs are poorly expanded and show basilar subsegmental atelectasis on both sides but are clear otherwise. The heart and great vessels are normal. Performing Organization Address City/[facility]/Zipcode Phone Number PACS/VR/DOSE POCT GLUCOSE (AUTOMATED) (05/06/2019 6:07 AM MEDIA STRATEGIST) POCT GLU 134 (H) 70 - 110 mg/dL [facility] Specimen Blood Performing Organization Address City/[facility]/Zipcode Phone Number [facility] CLIA: [id number], [address] [place] [phone] [facility] aPTT (05/06/2019 5:15 AM MEDIA STRATEGIST) APTT Patient 30 26 - 36 Seconds [facility] Specimen Blood - LINE, VENOUS Performing Organization Address [facility] Phone Number [facility] CLIA: [id number], [address] [place] [address] [phone] [facility] PROFILE / HEMOGRAM (05/06/2019 5:15 AM MEDIA STRATEGIST) WBC 3.87 (L) 4.30 - 11.10 [facility] 10*3/L SERVICES RBC 2.89 (L) 3.93 - 5.25 [facility] 10*6/L SERVICES HGB 8.3 (L) 11.6 - 15.0 [facility] g/dL SERVICES HCT 27.0 (L) 35.7 - 45.2 % [facility] SERVICES MCH 28.7 25.9 - 32.8 pg [facility] SERVICES MCV 93.4 80.6 - 95.5 fL [facility] SERVICES MCHC 30.7 (L) 31.6 - 35.1 [facility] g/dL SERVICES PLT 92 (L) 166 - 358 [facility] 10*3/L SERVICES MPV 10.1 9.5 - 12.9 fL [facility] SERVICES RDW-CV 21.0 (H) 12.0 - 15.5 % [facility] RDW-SD 69.4 (H) 39.0 - 49.9 fL [facility] NRBC x10^3 <0.01 10*3/L [facility] NRBC/100 WBC 0.0 0.0 - 10.0 [facility] /100 WBCs SERVICES IPF % 1.8Comment: Platelet 1.3 - 7.7 % [facility] count measured by SERVICES fluorescence method. Specimen Blood - LINE, VENOUS Performing Organization Address City/[facility]/Zipcode Phone Number [facility] CLIA: [id number], [address] [place] [phone] [facility] BASIC METABOLIC PANEL (NA, K, CL, CO2, GLUCOSE, BUN, CREATININE, CA) (2019 5:15 AM MEDIA STRATEGIST) NA 141 135 - 145 [facility] mmol/L SERVICES K 3.8 3.5 - 5.0 [facility] mmol/L SERVICES CL 113 (H) 98 - 108 mmol/L [facility] SERVICES CO2 TOTAL 24 23 - 31 mmol/L [facility] SERVICES AGAP 4 2 - 16 [facility] SERVICES BUN 10 7 - 23 mg/dL [facility] SERVICES GLUCOSE 143 (H) 70 - 110 mg/dL [facility] SERVICES CREATININE 0.80 0.50 - 1.04 [facility] mg/dL SERVICES CALCIUM 7.4 (L) 8.6 - 10.6 [facility] mg/dL SERVICES eGFR Calculation 77.9 mL/min/1.73m2 [facility] (Non- SERVICES Swedish) eGFR Calculation 94.4 mL/min/1.73m2 [facility] () SERVICES Specimen Blood - LINE, VENOUS Narrative Performed At Association of Glomerular Filtration Rate (GFR) and Staging [facility] SERVICES of Kidney Disease* + [...] abnormalities in imaging tests). Performing Organization Address City/[facility]/Zipcode Phone Number [facility] CLIA: [id number], [address] [place] [address] [phone] [facility] POCT GLUCOSE (AUTOMATED) (05/06/2019 12:28 AM MEDIA STRATEGIST) [facility] POCT GLU 176 (H) 70 - 110 mg/dL [facility] Specimen Blood Performing Organization Address City/[facility]/Zipcode Phone Number [facility] CLIA: [id number], [address] [place] [address] [phone] [place] POCT GLUCOSE (AUTOMATED) (05/05/2019 6:09 PM MEDIA STRATEGIST) POCT GLU 181 (H) 70 - 110 mg/dL [facility] Specimen Blood Performing Organization Address City/State/Zipcode Phone Number [facility] CLIA: [id number], [address] [place] [address] [phone] [facility] PROFILE / HEMOGRAM (05/05/2019 4:11 PM MEDIA STRATEGIST) WBC 4.16 (L) 4.30 - 11.10 [facility] 10*3/L SERVICES RBC 3.11 (L) 3.93 - 5.25 [facility] 10*6/L SERVICES HGB 9.0 (L) 11.6 - 15.0 [facility] g/dL SERVICES HCT 29.0 (L) 35.7 - 45.2 % [facility] SERVICES MCH 28.9 25.9 - 32.8 pg [facility] SERVICES MCV 93.2 80.6 - 95.5 fL [facility] SERVICES MCHC 31.0 (L) 31.6 - 35.1 [facility] g/dL SERVICES PLT 104 (L) 166 - 358 [facility] 10*3/L SERVICES MPV 10.1 9.5 - 12.9 fL [facility] SERVICES RDW-CV 21.2 (H) 12.0 - 15.5 % [facility] SERVICES RDW-SD 69.3 (H) 39.0 - 49.9 fL [facility] SERVICES NRBC x10^3 <0.01 10*3/L [facility] SERVICES NRBC/100 WBC 0.0 0.0 - 10.0 [facility] /100 WBCs SERVICES IPF % 2.3Comment: Platelet 1.3 - 7.7 % [facility] count measured by SERVICES fluorescence method. Specimen Blood - VENOUS Performing Organization Address City/State/Zipcode Phone Number [facility] CLIA: [id number], [address] [place] [address] [phone] [facility] POCT GLUCOSE (AUTOMATED) (05/05/2019 11:33 AM MEDIA STRATEGIST) POCT GLU 194 (H) 70 - 110 mg/dL [facility] Specimen Blood Performing Organization Address City/State/Zipcode Phone Number [facility] CLIA: [id number], [address] [place] [phone] [facility] Prepare Packed RBC (in units), 1 Units (05/05/2019 9:04 AM MEDIA STRATEGIST) Cross Match Result Compatible LAB ISBT Blood Type Code 9500 LAB Unit Blood Type O Neg LAB Unit Number [id number] LAB Blood Expiration Date & LAB Time Status Information Issued LAB Product Identification Red Blood Cells LAB Product Code [id number] LAB Comment: Performed at [facility] Services - [facility] Blood Bank [address] [place] [address] Toll Free: [phone] CLIA No. [id number] Specimen Performing Organization Address City/State/Zipcode Phone Number BLD LAB US ABDOMEN LIMITED WITH DOPPLER (05/05/2019 6:56 AM MEDIA STRATEGIST) Specimen Impressions Performed At PACS/VR/DOSE Nodular small cirrhotic liver. Patent main portal vein in the liver hilum. Small amount of abnormal and pelvic ascites Pancreas and other midline structures not well seen due to bowel gas Gallbladder absent. Common duct within normal limits in caliber in the postcholecystectomy status. RL: [id number] Narrative Performed At Examination: Abdominal sonogram limited, right upper quadrant ultrasound PACS/VR/DOSE with Doppler Ordering Physician: ACE GREENBERG Date: 05/03/2019 1:00 PM History: RUQ Findings: Transverse and longitudinal grayscale images of the right upper quadrant are submitted for review. The liver is small and demonstrate coarsened echotexture. Liver surface is nodular. There is perihepatic ascites. The right hepatic lobe craniocaudally measures 12.1 cm. Main portal vein is patent with slow flow in the liver hilum. Common hepatic duct measures 6.5 mm in the liver hilum. The duct was not well seen below this. Right kidney is free of hydronephrosis and measures 10.9 x 5.1 x 4.8 cm. Left kidney is free of hydronephrosis and measures 10 x 4.9 x 4.1 cm. The spleen is enlarged at 18.5 cm in craniocaudal length. Small amount of ascites in the lower abdomen and pelvis. The pancreas is not well seen due to midline bowel gas. A small portion of the proximal body is unremarkable. The gallbladder is absent. Procedure Note [facility], Radiant Results Inft User - 05/05/2019 8:01 AM MEDIA STRATEGIST Examination: Abdominal sonogram limited, right upper quadrant ultrasound with Doppler Ordering Physician: ACE GREENBERG Date: 05/03/2019 1:00 PM History: RUQ Findings: Transverse and longitudinal grayscale images of the right upper quadrant are submitted for review. The liver is small and demonstrate coarsened echotexture. Liver surface is nodular. There is perihepatic ascites. The right hepatic lobe craniocaudally measures 12.1 cm. Main portal vein is patent with slow flow in the liver hilum. Common hepatic duct measures 6.5 mm in the liver hilum. The duct was not well seen below this. Right kidney is free of hydronephrosis and measures 10.9 x 5.1 x 4.8 cm. Left kidney is free of hydronephrosis and measures 10 x 4.9 x 4.1 cm. The spleen is enlarged at 18.5 cm in craniocaudal length. Small amount of ascites in the lower abdomen and pelvis. The pancreas is not well seen due to midline bowel gas. A small portion of the proximal body is unremarkable. The gallbladder is absent. IMPRESSION Nodular small cirrhotic liver. Patent main portal vein in the liver hilum. Small amount of abnormal and pelvic ascites Pancreas and other midline structures not well seen due to bowel gas Gallbladder absent. Common duct within normal limits in caliber in the postcholecystectomy status. RL: [id number] Performing Organization Address City/State/Zipcode Phone Number PACS/VR/DOSE aPTT (05/05/2019 5:29 AM MEDIA STRATEGIST) APTT Patient 31 26 - 36 Seconds [facility] Specimen Blood - VENOUS Performing Organization Address City/State/Zipcode Phone Number [facility] CLIA: [id number], [address] [place] [address] [address] PROFILE / HEMOGRAM (05/05/2019 5:29 AM MEDIA STRATEGIST) WBC 3.54 (L) 4.30 - 11.10 [facility] 10*3/L SERVICES RBC 2.39 (L) 3.93 - 5.25 [facility] 10*6/L SERVICES HGB 6.9 (L) 11.6 - 15.0 [facility] g/dL SERVICES HCT 23.0 (L) 35.7 - 45.2 % [facility] SERVICES MCH 28.9 25.9 - 32.8 pg [facility] SERVICES MCV 96.2 (H) 80.6 - 95.5 fL [facility] SERVICES MCHC 30.0 (L) 31.6 - 35.1 [facility] g/dL SERVICES PLT 102 (L) 166 - 358 [facility] 10*3/L SERVICES MPV 10.5 9.5 - 12.9 fL [facility] SERVICES RDW-CV 21.2 (H) 12.0 - 15.5 % [facility] SERVICES RDW-SD 73.2 (H) 39.0 - 49.9 fL [facility] SERVICES NRBC x10^3 <0.01 10*3/L [facility] SERVICES NRBC/100 WBC 0.0 0.0 - 10.0 [facility] /100 WBCs SERVICES IPF % 2.7Comment: Platelet 1.3 - 7.7 % [facility] count measured by SERVICES fluorescence method. Specimen Blood - VENOUS Performing Organization Address City/State/Zipcode Phone Number [facility] CLIA: [id number], [address] [place] [address] [facility] BASIC METABOLIC PANEL (NA, K, CL, CO2, GLUCOSE, BUN, CREATININE, CA) (2019 5:29 AM MEDIA STRATEGIST) NA 142 135 - 145 [facility] mmol/L SERVICES K 3.5 3.5 - 5.0 [facility] mmol/L SERVICES CL 115 (H) 98 - 108 mmol/L [facility] SERVICES CO2 TOTAL 22 (L) 23 - 31 mmol/L [facility] SERVICES AGAP 5 2 - 16 [facility] SERVICES BUN 14 7 - 23 mg/dL [facility] SERVICES GLUCOSE 125 (H) 70 - 110 mg/dL [facility] SERVICES CREATININE 0.96 0.50 - 1.04 [facility] mg/dL SERVICES CALCIUM 7.3 (L) 8.6 - 10.6 [facility] mg/dL SERVICES eGFR Calculation 63.1 mL/min/1.73m2 [facility] (Non- SERVICES Swedish) eGFR Calculation 76.5 mL/min/1.73m2 [facility] () SERVICES Specimen Blood - VENOUS Narrative Performed At Association of Glomerular Filtration Rate (GFR) and Staging [facility] of Kidney Disease* + [...] abnormalities in imaging tests). Performing Organization Address City/[facility]/Zipcode Phone Number [facility] CLIA: [id number], [address] [place] [address] [phone] [facility] POCT GLUCOSE (AUTOMATED) (05/05/2019 5:24 AM MEDIA STRATEGIST) POCT GLU 146 (H) 70 - 110 mg/dL [facility] Specimen Blood Performing Organization Address City/[facility]/Zipcode Phone Number [facility] CLIA: [id number], [address] [place] [address] [phone] [place] XR KUB (05/05/2019 4:00 AM MEDIA STRATEGIST) Specimen Narrative Performed At EXAM: XR KUB PACS/VR/DOSE HISTORY: n/v, COMPARISON: None. FINDINGS: The nearly gasless abdomen may be filled with dilated fluid-filled bowel loops, and CT would demonstrate that. The present images show a small amount of gas in the stomach and little else. Procedure Note [facility], Radiant Results Inft User - 05/05/2019 8:50 AM MEDIA STRATEGIST EXAM: XR KUB HISTORY: n/v, COMPARISON: None. FINDINGS: The nearly gasless abdomen may be filled with dilated fluid-filled bowel loops, and CT would demonstrate that. The present images show a small amount of gas in the stomach and little else. Performing Organization Address City/[facility]/Zipcode Phone Number PACS/VR/DOSE POCT GLUCOSE (AUTOMATED) (05/04/2019 11:45 PM MEDIA STRATEGIST) POCT GLU 252 (H) 70 - 110 mg/dL [facility] Specimen Blood Performing Organization Address [facility]/Zipcode Phone Number [facility] CLIA: [id number], [address] [place] [address] [facility] PROFILE / HEMOGRAM (05/04/2019 5:43 PM MEDIA STRATEGIST) WBC 3.92 (L) 4.30 - 11.10 [facility] 10*3/L SERVICES RBC 2.53 (L) 3.93 - 5.25 [facility] 10*6/L SERVICES HGB 7.3 (L) 11.6 - 15.0 [facility] g/dL SERVICES HCT 23.5 (L) 35.7 - 45.2 % [facility] SERVICES MCH 28.9 25.9 - 32.8 pg [facility] SERVICES MCV 92.9 80.6 - 95.5 fL [facility] SERVICES MCHC 31.1 (L) 31.6 - 35.1 [facility] g/dL SERVICES PLT 104 (L) 166 - 358 [facility] 10*3/L SERVICES MPV 10.3 9.5 - 12.9 fL [facility] SERVICES RDW-CV 21.4 (H) 12.0 - 15.5 % [facility] SERVICES RDW-SD 71.6 (H) 39.0 - 49.9 fL [facility] SERVICES NRBC x10^3 <0.01 10*3/L [facility] SERVICES NRBC/100 WBC 0.0 0.0 - 10.0 [facility] /100 WBCs SERVICES IPF % 1.6Comment: Platelet 1.3 - 7.7 % [facility] count measured by SERVICES fluorescence method. Specimen Blood - ARM, LEFT Performing Organization Address City/State[facility] Phone Number [facility] CLIA: [id number], [address] [place] [phone] [facility] POCT GLUCOSE (AUTOMATED) (05/04/2019 5:41 PM MEDIA STRATEGIST) POCT GLU 171 (H) 70 - 110 mg/dL [facility] Specimen Blood Performing Organization Address [facility] Phone Number [facility] CLIA: [id number], [address] [place] [address] [phone] [facility] POCT GLUCOSE (AUTOMATED) (05/04/2019 11:58 AM MEDIA STRATEGIST) POCT GLU 169 (H) 70 - 110 mg/dL [facility] Specimen Blood Performing Organization Address [facility] Phone Number [facility] CLIA: [id number], [address] [place] [address] [facility] EXTRA TUBE LT. GREEN (05/04/2019 11:16 AM MEDIA STRATEGIST) Specimen Blood Performing Organization Address [facility] Phone Number [facility] CLIA: [id number], [address] [place] [address] [facility] AMMONIA, PLASMA (05/04/2019 11:16 AM MEDIA STRATEGIST) AMMONIA <9 (L) 9 - 33 umol/L [facility] Specimen Blood - ARM, RIGHT Performing Organization Address [facility] Phone Number [facility] CLIA: [id number], [address] [place] [phone] [facility] PROFILE / HEMOGRAM (05/04/2019 11:16 AM MEDIA STRATEGIST) WBC 4.34 4.30 - 11.10 [facility] 10*3/L SERVICES RBC 2.76 (L) 3.93 - 5.25 [facility] 10*6/L SERVICES HGB 7.9 (L) 11.6 - 15.0 g/dL [facility] SERVICES HCT 26.0 (L) 35.7 - 45.2 % [facility] SERVICES MCH 28.6 25.9 - 32.8 pg [facility] SERVICES MCV 94.2 80.6 - 95.5 fL [facility] SERVICES MCHC 30.4 (L) 31.6 - 35.1 g/dL [facility] SERVICES PLT 124 (L) 166 - 358 10*3/L [facility] SERVICES MPV 11.0 9.5 - 12.9 fL [facility] SERVICES RDW-CV 21.8 (H) 12.0 - 15.5 % [facility] SERVICES RDW-SD 73.0 (H) 39.0 - 49.9 fL [facility] SERVICES NRBC x10^3 <0.01 10*3/L [facility] SERVICES NRBC/100 WBC 0.0 0.0 - 10.0 /100 [facility] WBCs SERVICES IPF % [facility] Specimen Blood - ARM, RIGHT Performing Organization Address City/State/Zipcode Phone Number [facility] CLIA: [id number], [address] [place] [address] [phone] POCT GLUCOSE (AUTOMATED) (05/04/2019 8:04 AM MEDIA STRATEGIST) POCT GLU 134 (H) 70 - 110 mg/dL [facility] Specimen Blood Performing Organization Address City/State/Zipcode Phone Number [facility] CLIA: [id number], [address] [place] [phone] [place] PROFILE / HEMOGRAM (05/04/2019 6:33 AM MEDIA STRATEGIST) WBC 3.66 (L) 4.30 - 11.10 [facility] 10*3/L SERVICES RBC 2.49 (L) 3.93 - 5.25 [facility] 10*6/L SERVICES HGB 7.1 (L) 11.6 - 15.0 g/dL [facility] SERVICES HCT 23.5 (L) 35.7 - 45.2 % [facility] SERVICES MCH 28.5 25.9 - 32.8 pg [facility] SERVICES MCV 94.4 80.6 - 95.5 fL [facility] SERVICES MCHC 30.2 (L) 31.6 - 35.1 g/dL [facility] SERVICES PLT 107 (L) 166 - 358 10*3/L [facility] SERVICES MPV 10.4 9.5 - 12.9 fL [facility] SERVICES RDW-CV 21.9 (H) 12.0 - 15.5 % [facility] SERVICES RDW-SD 73.1 (H) 39.0 - 49.9 fL [facility] SERVICES NRBC x10^3 <0.01 10*3/L [facility] NRBC/100 WBC 0.0 0.0 - 10.0 /100 [facility] WBCs SERVICES IPF % [facility] Specimen Blood - VENOUS Performing Organization Address City/State/Zipcode Phone Number [facility] CLIA: [id number], [address] [place] [address] [facility] BASIC METABOLIC PANEL (NA, K, CL, CO2, GLUCOSE, BUN, CREATININE, CA) (2019 4:57 AM MEDIA STRATEGIST) NA 141 135 - 145 [facility] mmol/L SERVICES K 4.0 3.5 - 5.0 [facility] mmol/L SERVICES CL 114 (H) 98 - 108 mmol/L [facility] SERVICES CO2 TOTAL 22 (L) 23 - 31 mmol/L [facility] AGAP 5 2 - 16 [facility] BUN 18 7 - 23 mg/dL [facility] SERVICES GLUCOSE 177 (H) 70 - 110 mg/dL [facility] CREATININE 0.95 0.50 - 1.04 [facility] mg/dL SERVICES CALCIUM 7.9 (L) 8.6 - 10.6 [facility] mg/dL SERVICES eGFR Calculation 63.9 mL/min/1.73m2 [facility] (Non- SERVICES Swedish) eGFR Calculation 77.5 mL/min/1.73m2 [facility] () SERVICES Specimen Blood - VENOUS Narrative Performed At Association of Glomerular Filtration Rate (GFR) and Staging [facility] of Kidney Disease* + [...] tests). Performing Organization Address City/State/Zipcode Phone Number [facility] CLIA: [id number], [address] [place] [phone] [facility] aPTT (05/04/2019 4:57 AM MEDIA STRATEGIST) APTT Patient 30 26 - 36 Seconds [facility] Specimen Blood - VENOUS Performing Organization Address City/[facility]/Zipcode Phone Number [facility] CLIA: [id number], [address] [place] [address] [phone] [facility] PROFILE / HEMOGRAM (05/04/2019 1:20 AM MEDIA STRATEGIST) WBC 5.34 4.30 - 11.10 [facility] 10*3/L SERVICES RBC 2.69 (L) 3.93 - 5.25 [facility] 10*6/L SERVICES HGB 7.9 (L) 11.6 - 15.0 g/dL [facility] SERVICES HCT 25.6 (L) 35.7 - 45.2 % [facility] MCH 29.4 25.9 - 32.8 pg [facility] MCV 95.2 80.6 - 95.5 fL [facility] MCHC 30.9 (L) 31.6 - 35.1 g/dL [facility] PLT 120 (L) 166 - 358 10*3/L [facility] MPV 11.1 9.5 - 12.9 fL [facility] RDW-CV 22.3 (H) 12.0 - 15.5 % [facility] RDW-SD 76.4 (H) 39.0 - 49.9 fL [facility] NRBC x10^3 0.02 10*3/L [facility] NRBC/100 WBC 0.4 0.0 - 10.0 /100 [facility] WBCs SERVICES IPF % [facility] Specimen Blood - VENOUS Performing Organization Address City/[facility]/Zipcode Phone Number [facility] CLIA: [id number], [address] [place] [phone] [facility] POCT GLUCOSE (AUTOMATED) (05/03/2019 9:58 PM MEDIA STRATEGIST) POCT GLU 224 (H) 70 - 110 mg/dL [facility] Specimen Blood Performing Organization Address City/[facility] Phone Number [facility] CLIA: [id number], [address] [place] [phone] [place] PROFILE / HEMOGRAM (05/03/2019 4:55 PM MEDIA STRATEGIST) WBC 4.43 4.30 - 11.10 [facility] 10*3/L SERVICES RBC 2.59 (L) 3.93 - 5.25 [facility] 10*6/L SERVICES HGB 7.5 (L) 11.6 - 15.0 g/dL [facility] SERVICES HCT 24.2 (L) 35.7 - 45.2 % [facility] MCH 29.0 25.9 - 32.8 pg [facility] MCV 93.4 80.6 - 95.5 fL [facility] MCHC 31.0 (L) 31.6 - 35.1 g/dL [facility] PLT 109 (L) 166 - 358 10*3/L [facility] MPV 10.2 9.5 - 12.9 fL [facility] RDW-CV 21.8 (H) 12.0 - 15.5 % [facility] RDW-SD 71.9 (H) 39.0 - 49.9 fL [facility] NRBC x10^3 0.02 10*3/L [facility] NRBC/100 WBC 0.5 0.0 - 10.0 /100 [facility] WBCs SERVICES IPF % [facility] Specimen Blood - VENOUS Performing Organization Address City/[facility]/Zipcode Phone Number [facility] CLIA: [id number], [address] [place] [address] [phone] [facility] HEPATITIS B SURFACE ANTIBODY (05/03/2019 4:55 PM MEDIA STRATEGIST) HBsAB Negative [facility] HBsAb 0.00 mIU/mL [facility] Semi-Quantitative SERVICES Specimen Blood - VENOUS Narrative Performed At Interpretation: Hepatitis B Surface Antibody [facility] Negative - Patient is considered to be not immune to infection with HBV. Positive - Anti-HBs detected at greater than or equal to 12 mIU/mL. Patient is considered to be immune to infection with HBV. Performing Organization Address City/State/Zipcode Phone Number [facility] CLIA: [id number], [address] [place] [phone] [facility] POCT GLUCOSE (AUTOMATED) (05/03/2019 4:51 PM MEDIA STRATEGIST) POCT GLU 172 (H) 70 - 110 mg/dL [facility] Specimen Blood Performing Organization Address City/[facility] Phone Number [facility] CLIA: [id number], [address] [place] [id number] [facility] POCT GLUCOSE (AUTOMATED) (05/03/2019 11:49 AM MEDIA STRATEGIST) POCT GLU 217 (H) 70 - 110 mg/dL [facility] Specimen Blood Performing Organization Address [facility] Phone Number [facility] CLIA: [id number], [address] [place] [phone] [facility] PROFILE / HEMOGRAM (05/03/2019 11:45 AM MEDIA STRATEGIST) WBC 4.57 4.30 - 11.10 [facility] 10*3/L SERVICES RBC 2.75 (L) 3.93 - 5.25 [facility] 10*6/L SERVICES HGB 7.8 (L) 11.6 - 15.0 g/dL [facility] [facility] HCT 25.6 (L) 35.7 - 45.2 % [facility] MCH 28.4 25.9 - 32.8 pg [facility] MCV 93.1 80.6 - 95.5 fL [facility] MCHC 30.5 (L) 31.6 - 35.1 g/dL [facility] PLT 127 (L) 166 - 358 10*3/L [facility] MPV 11.0 9.5 - 12.9 fL [facility] RDW-CV 21.5 (H) 12.0 - 15.5 % [facility] RDW-SD 72.7 (H) 39.0 - 49.9 fL [facility] NRBC x10^3 0.03 10*3/L [facility] NRBC/100 WBC 0.7 0.0 - 10.0 /100 [facility] WBCs SERVICES IPF % [facility] Specimen Blood - VENOUS Performing Organization Address City/[facility] Phone Number [facility] CLIA: [id number], [address] [place] [phone] [facility] TEST, URINE (05/03/2019 11:27 AM MEDIA STRATEGIST) PREG URINE Negative [facility] Specimen Urine - URINE, CLEAN CATCH Narrative Performed At Less than 20 IU/L. If low titer or ectopic is [facility] suspected, resubmit specimen in 48-72 hours. Performing Organization Address City/[facility] Phone Number [facility] CLIA: [id number], [address] [place] [phone] [facility] Prepare Packed RBC (in units), 1 Units (05/03/2019 10:00 AM MEDIA STRATEGIST) Cross Match Result Compatible LAB ISBT Blood Type Code 5100 LAB Unit Blood Type O Pos LAB Unit Number [id number] LAB Blood Expiration Date & LAB Time Status Information Issued LAB Product Identification Red Blood Cells LAB Product Code [id number] LAB Comment: Performed at [facility] Laboratory Services - [facility] Blood Bank [address] [place] [phone] Toll Free: [phone] CLIA No. [id number] Specimen Performing Organization Address City/[facility]/Zipcode Phone Number BLD LAB POCT GLUCOSE (AUTOMATED) (05/03/2019 8:43 AM MEDIA STRATEGIST) POCT GLU 224 (H) 70 - 110 mg/dL [facility] Specimen Blood Performing Organization Address City/[facility]/Zipcode Phone Number [facility] CLIA: [id number], [address] [place] [address] [phone] [facility] PROFILE / HEMOGRAM (05/03/2019 8:31 AM MEDIA STRATEGIST) WBC 4.38 4.30 - 11.10 [facility] 10*3/L SERVICES RBC 2.21 (L) 3.93 - 5.25 [facility] 10*6/L SERVICES HGB 6.4 (L) 11.6 - 15.0 g/dL [facility] HCT 20.5 (L) 35.7 - 45.2 % [facility] MCH 29.0 25.9 - 32.8 pg [facility] MCV 92.8 80.6 - 95.5 fL [facility] MCHC 31.2 (L) 31.6 - 35.1 g/dL [facility] PLT 140 (L) 166 - 358 10*3/L [facility] MPV 11.5 9.5 - 12.9 fL [facility] RDW-CV 23.0 (H) 12.0 - 15.5 % [facility] RDW-SD 75.7 (H) 39.0 - 49.9 fL [facility] NRBC x10^3 0.02 10*3/L [facility] NRBC/100 WBC 0.5 0.0 - 10.0 /100 [facility] WBCs SERVICES IPF % [facility] Specimen Blood - VENOUS Performing Organization Address City/State/Zipcode Phone Number [facility] CLIA: [id number], [address] [place] [address] [phone] [facility] LACTATE DEHYDROGENASE (05/03/2019 8:31 AM MEDIA STRATEGIST) LDH 799 (H)Comment: 300 - 600 U/L [facility] Slight hemolysis SERVICES Specimen Blood - VENOUS Performing Organization Address City/State/Zipcode Phone Number [facility] CLIA: [id number], [address] [place] [address] [phone] [facility] BODY FLUID MANUAL DIFF (05/03/2019 8:23 AM MEDIA STRATEGIST) BF SEGS 15 % [facility] BF LYMPHS 51 % [facility] MACROPHAGE 30 % [facility] MESOS 1 % [facility] BF PLASMA HARJEET 2 % [facility] BF OTHR CELLS 1Comment: Reactive % [facility] mesos SERVICES #CELS CNTD 100 [facility] Specimen Fluid - ASCITES Performing Organization Address City/State/Zipcode Phone Number [facility] CLIA: [id number], [address] [place] [address] [phone] [facility] BODY FLUID DIRECT COUNT (05/03/2019 8:23 AM MEDIA STRATEGIST) BF COLOR Light Yellow [facility] BF WBC Count 61 /L [facility] BF RBC Count <3000 /L [facility] Specimen Fluid - ASCITES Narrative Performed At The reference range and other method performance [facility] specifications have not been established for this body fluid. The test results must be integrated into the clinical context for interpretation. Performing Organization Address City/[facility] Phone Number [facility] CLIA: [id number], [address] [place] [address] [facility] LDH TOTAL BODY FLUID (05/03/2019 8:23 AM MEDIA STRATEGIST) LDH BF 133 U/L [facility] UNSPUN BODY FLUID Light Yellow [facility] COLOR SERVICES UNSPUN BODY FLUID Clear [facility] CLARITY SERVICES SPUN BODY FLUID Light Yellow [facility] COLOR SERVICES SPUN BODY FLUID Clear [facility] CLARITY SERVICES Sediment The sediment [facility] volume is <0.01 SERVICES mLs of the total fluid volume of 5 ml and its color is red. Specimen Fluid - ASCITES Narrative Performed At Test developed and characteristics determined by [facility] Laboratory Services. Performing Organization Address City/State/Zipcode Phone Number [facility] CLIA: [id number], [address] [place] [address] [phone] [facility] ALBUMIN BODY FLUID (05/03/2019 8:23 AM MEDIA STRATEGIST) ALBUMIN BF 268.0 mg/dL [facility] Specimen Fluid - ASCITES Narrative Performed At Result interpreted relative to the serum concentration. [facility] Performing Organization Address City/State/Zipcode Phone Number [facility] CLIA: [id number], [address] [place] [phone] [facility] T.PROTEIN BODY FLUID (05/03/2019 8:23 AM MEDIA STRATEGIST) T.PROT BF 974.0 mg/dL [facility] UNSPUN BODY FLUID Light Yellow [facility] COLOR SERVICES UNSPUN BODY FLUID Clear [facility] CLARITY SERVICES SPUN BODY FLUID Light Yellow [facility] COLOR SERVICES SPUN BODY FLUID Clear [facility] CLARITY SERVICES Sediment The sediment [facility] volume is <0.01 SERVICES mLs of the total fluid volume of 5 ml and its color is red. Specimen Fluid - ASCITES Narrative Performed At Test developed and characteristics determined by [facility] Laboratory Services. Performing Organization Address City/[facility]code Phone Number [facility] CLIA: [id number], [address] [place] [address] [phone] [facility] GLUCOSE BODY FLUID (05/03/2019 8:23 AM MEDIA STRATEGIST) GLUCOSE BF 225 mg/dL [facility] UNSPUN BODY FLUID Light Yellow [facility] COLOR SERVICES UNSPUN BODY FLUID Clear [facility] CLARITY SERVICES SPUN BODY FLUID Light Yellow [facility] COLOR SERVICES SPUN BODY FLUID Clear [facility] CLARITY SERVICES Sediment The sediment [facility] volume is <0.01 SERVICES mLs of the total fluid volume of 5 ml and its color is red. Specimen Fluid - ASCITES Narrative Performed At Test developed and characteristics determined by [facility] Laboratory Services. Performing Organization Address City/[facility]code Phone Number [facility] CLIA: [id number], [address] [place] [address] [phone] [facility] MRSA / MSSA Screen by PCR, Nares (05/03/2019 8:12 AM MEDIA STRATEGIST) MRSA Screen by PCR, Negative Negative [facility] Nares SERVICES MSSA Screen by PCR, Negative Negative [facility] Nares SERVICES MRSA/MSSA Positive? No No [facility] Specimen Swab - NARES, BOTH SIDES Performing Organization Address [facility] Phone Number [facility] CLIA: [id number], [address] [place] [address] [phone] [facility] Type and Screen - ONCE STAT (05/03/2019 6:35 AM MEDIA STRATEGIST) ABO & RH O POSITIVE LAB Comment: Performed at [facility] Laboratory Services - [facility] Blood [place] [address] Toll Free: [phone] CLIA No. [id number] IAT Negative LAB Comment: Performed at [facility] Laboratory Services - [facility] Blood [place] [address] Toll Free: [phone] CLIA No. [id number] Specimen Blood - VENOUS Performing Organization Address City/State/Zipcode Phone Number BLD LAB Fibrinogen Level (05/03/2019 6:34 AM MEDIA STRATEGIST) Fibrinogen 276 167 - 453 mg/dL [facility] Specimen Blood - VENOUS Performing Organization Address City/State/Zipcode Phone Number [facility] CLIA: [id number], [address] [place] [phone] [facility] CBC WITH DIFFERENTIAL (05/03/2019 6:34 AM MEDIA STRATEGIST) WBC 2.70 (L) 4.30 - 11.10 [facility] 10*3/L SERVICES RBC 4.20 3.93 - 5.25 [facility] 10*6/L SERVICES HGB 11.6 11.6 - 15.0 [facility] g/dL SERVICES HCT 39.0 35.7 - 45.2 % [facility] MCV 92.9 80.6 - 95.5 [facility] fL SERVICES MCH 27.6 25.9 - 32.8 [facility] pg SERVICES MCHC 29.7 (L) 31.6 - 35.1 [facility] g/dL SERVICES RDW-SD 74.9 (H) 39.0 - 49.9 [facility] fL SERVICES RDW-CV 23.0 (H) 12.0 - 15.5 % [facility] PLT 89 (L) 166 - 358 [facility] 10*3/L SERVICES MPV 10.3 9.5 - 12.9 fL [facility] SERVICES IPF % 2.8Comment: Platelet 1.3 - 7.7 % [facility] count measured by SERVICES fluorescence method. NRBC/100 WBC 0.0 0.0 - 10.0 [facility] /100 WBCs SERVICES NRBC x10^3 <0.01 10*3/L [facility] GRAN MAT (NEUT) % 74.5 % [facility] IMM GRAN % 0.70 % [facility] LYMPH % 14.4 % [facility] MONO % 6.7 % [facility] EOS % 3.0 % [facility] BASO % 0.7 % [facility] GRAN MAT 2.01 1.88 - 7.09 [facility] x10^3(ANC) 10*3/uL SERVICES IMM GRAN x10^3 <0.03 0.00 - 0.06 [facility] 10*3/uL SERVICES LYMPH x10^3 0.39 (L) 1.32 - 3.29 [facility] 10*3/uL SERVICES MONO x10^3 0.18 (L) 0.33 - 0.92 [facility] 10*3/uL SERVICES EOS x10^3 0.08 0.03 - 0.39 [facility] 10*3/uL SERVICES BASO x10^3 <0.03 0.01 - 0.07 [facility] 10*3/uL SERVICES Specimen Blood - VENOUS Performing Organization Address City/State/Zipcode Phone Number [facility] CLIA: [id number], [address] [place] [address] [phone] [facility] PROTHROMBIN TIME / INR (05/03/2019 6:34 AM MEDIA STRATEGIST) Pathologist [facility] PROTIME PATIENT 12.2 10.1 - 12.6 [facility] Seconds SERVICES INR 1.1Comment: Normal [facility] INR <1.1; Warfarin SERVICES Therapeutic range 2.0 to 3.0 or 2.5 to 3.5, depending upon the indications. Specimen Blood - VENOUS Performing Organization Address City/[facility]/Zipcode Phone Number [facility] CLIA: [id number], [address] [place] [address] [phone] [facility] HEPATIC FUNCTION PANEL ([id number]) (ALB,T.PRO,BILI T,BU/BC,ALT,AST,ALK PHOS) (2019 6:34 AM MEDIA STRATEGIST) Pathologist [facility] TOTAL BILI 1.1 0.1 - 1.1 mg/dL [facility] BILI UNCON 1.1 0.1 - 1.1 mg/dL [facility] BILI CONJ 0.0 0.0 - 0.3 mg/dL [facility] T PROTEIN 6.5 6.3 - 8.2 g/dL [facility] ALBUMIN 2.7 (L) 3.5 - 5.0 g/dL [facility] ALK PHOS 278 (H) 34 - 122 U/L [facility] ALTv 19 5 - 35 U/L [facility] AST(SGOT) 32 13 - 40 U/L [facility] SERVICES Specimen Blood - VENOUS Performing Organization Address City/State/Zipcode Phone Number [facility] CLIA: [id number], [address] [place] [address] [phone] [facility] BASIC METABOLIC PANEL (NA, K, CL, CO2, GLUCOSE, BUN, CREATININE, CA) (2019 6:34 AM MEDIA STRATEGIST) NA 140 135 - 145 [facility] mmol/L SERVICES K 3.7 3.5 - 5.0 [facility] mmol/L SERVICES CL 111 (H) 98 - 108 mmol/L [facility] SERVICES CO2 TOTAL 24 23 - 31 mmol/L [facility] SERVICES AGAP 5 2 - 16 [facility] SERVICES BUN 21 7 - 23 mg/dL [facility] SERVICES GLUCOSE 215 (H) 70 - 110 mg/dL [facility] SERVICES CREATININE 0.80 0.50 - 1.04 [facility] mg/dL SERVICES CALCIUM 7.9 (L) 8.6 - 10.6 [facility] mg/dL SERVICES eGFR Calculation 77.9 mL/min/1.73m2 [facility] (Non- SERVICES Swedish) eGFR Calculation 94.4 mL/min/1.73m2 [facility] () SERVICES Specimen Blood - VENOUS Narrative Performed At Association of Glomerular Filtration Rate (GFR) and Staging [facility] SERVICES of Kidney Disease* + [...] tests). Performing Organization Address City/State/Zipcode Phone Number [facility] CLIA: [id number], [address] [place] [phone] [facility] Prepare Packed RBC (in units), 1 Units (05/03/2019 3:43 AM MEDIA STRATEGIST) Cross Match Result Compatible LAB ISBT Blood Type Code 5100 LAB Unit Blood Type O Pos LAB Unit Number [id number] LAB Blood Expiration Date & [id number] LAB Time Status Information Issued LAB Product Identification Red Blood Cells LAB Product Code [id number] LAB Comment: Performed at [facility] Laboratory Services - [facility] Blood Bank [address] [place] [phone] Toll Free: [phone] CLIA No. [id number] Specimen Performing Organization Address City/State/Zipcode Phone Number BLD LAB Critical Care (05/03/2019 3:30 AM MEDIA STRATEGIST) Narrative Performed At Norbert Stinson MD 05/03/2019 3:39 AM Critical Care Performed by: Norbert Stinson MD Authorized by: Norbert Stinson MD Critical care provider statement: Critical care time (minutes): 50 Critical care was necessary to treat or prevent imminent or life-threatening deterioration of the following conditions: Circulatory failure and shock Critical care was time spent personally by me on the following activities: Blood draw for specimens, discussions with consultants, evaluation of patient's response to treatment, examination of patient, obtaining history from patient or surrogate, ordering and performing treatments and interventions, ordering and review of laboratory studies, ordering and review of radiographic studies, re-evaluation of patient's condition, pulse oximetry and review of old charts I assumed direction of critical care for this patient from another provider in my specialty: no CT ABDOMEN PELVIS W WO CONTRAST (05/03/2019 2:42 AM MEDIA STRATEGIST) Specimen Impressions Performed At PACS/VR/DOSE Manifestations of cirrhosis with moderate ascites. No definitive source of gastrointestinal bleeding is identified. There are prominent hemorrhoids in the rectum. Mild fluid adjacent to the pancreas. This is likely related to more generalized ascites, but correlation with amylase and lipase levels is recommended. Mild diffuse thickening of the colonic wall, consistent with portal colopathy versus colitis. RL: 460 AF: [id number] Narrative Performed At Indication: Abdominal distention, GI bleed PACS/VR/DOSE COMPARISON: None available TECHNIQUE: Axial images of the abdomen and pelvis were performed before and after the administration of intravenous contrast material. Images were reformatted in the coronal and sagittal plane. CT scan was performed according to ALARA (as low as reasonably achievable) policy. FINDINGS: There is linear atelectasis in the lung bases. There is irregularity of the liver contour, with enlargement of the caudate lobe and splenomegaly. There is moderate ascites in the abdomen and pelvis. The patient is status post cholecystectomy. The adrenal glands are within normal limits. There is a small amount of fluid adjacent to the pancreas. The kidneys are normal in appearance bilaterally without hydronephrosis. There is no abdominal aortic aneurysm or dissection. There is no bowel obstruction, widespread diverticulosis or acute diverticulitis. The CT appearance of the uterus and ovaries is within normal limits. There is mild diffuse thickening of the colonic wall. The appendix is identified and within normal limits. Bone windows through the abdomen and pelvis demonstrate no osseous destructive lesion. Procedure Note [facility], Radiant Results Inft User - 05/03/2019 3:13 AM MEDIA STRATEGIST Indication: Abdominal distention, GI bleed COMPARISON: None available TECHNIQUE: Axial images of the abdomen and pelvis were performed before and after the administration of intravenous contrast material. Images were reformatted in the coronal and sagittal plane. CT scan was performed according to ALARA (as low as reasonably achievable) policy. FINDINGS: There is linear atelectasis in the lung bases. There is irregularity of the liver contour, with enlargement of the caudate lobe and splenomegaly. There is moderate ascites in the abdomen and pelvis. The patient is status post cholecystectomy. The adrenal glands are within normal limits. There is a small amount of fluid adjacent to the pancreas. The kidneys are normal in appearance bilaterally without hydronephrosis. There is no abdominal aortic aneurysm or dissection. There is no bowel obstruction, widespread diverticulosis or acute diverticulitis. The CT appearance of the uterus and ovaries is within normal limits. There is mild diffuse thickening of the colonic wall. The appendix is identified and within normal limits. Bone windows through the abdomen and pelvis demonstrate no osseous destructive lesion. IMPRESSION Manifestations of cirrhosis with moderate ascites. No definitive source of gastrointestinal bleeding is identified. There are prominent hemorrhoids in the rectum. Mild fluid adjacent to the pancreas. This is likely related to more generalized ascites, but correlation with amylase and lipase levels is recommended. Mild diffuse thickening of the colonic wall, consistent with portal colopathy versus colitis. RL: 460 AFC: [id number] Performing Organization Address City/State/Zipcode Phone Number PACS/VR/DOSE Type and Screen - ONCE ADEEL (05/03/2019 1:30 AM MEDIA STRATEGIST) ABO & RH O Positive LAB Comment: Performed at [facility] Laboratory Services - [facility] Blood Bank [address] [place] [phone] Toll Free: [phone] CLIA No. [id number] IAT Negative LAB Comment: Performed at [facility] Laboratory [facility] - [facility] Blood Bank [address] [place] [phone] Toll Free: [phone] CLIA No. [id number] Specimen Blood - VENOUS Performing Organization Address City/[facility]/Zipcode Phone Number BLD LAB CBC WITH DIFFERENTIAL (05/03/2019 1:24 AM MEDIA STRATEGIST) WBC 6.28 4.30 - 11.10 [facility] 10*3/L HOSPITAL LABORATORY RBC 1.89 (L) 3.93 - 5.25 [facility] 10*6/L [facility]OSPITAL LABORATORY HGB 5.4 (L) 11.6 - 15.0 [facility] g/dL [facility]OSPITAL [facility] HCT 18.4 (L) 35.7 - 45.2 % [facility] MCV 97.4 (H) 80.6 - 95.5 fL [facility] MCH 28.6 25.9 - 32.8 pg [facility] MCHC 29.3 (L) 31.6 - 35.1 [facility] g/dL [facility] RDW-SD 70.6 (H) 39.0 - 49.9 fL [facility] RDW-CV 20.1 (H) 12.0 - 15.5 % [facility] PLT 153 (L) 166 - 358 [facility] 10*3/L [facility] MPV 10.9 9.5 - 12.9 fL [facility] NRBC/100 WBC 0.6 0.0 - 10.0 /100 [facility] WBCs [facility] NRBC x10^3 0.04 10*3/L [facility] GRAN MAT (NEUT) % 72.2 % [facility] IMM GRAN % 1.10 % [facility] LYMPH % 13.4 % [facility] MONO % 10.0 % [facility] EOS % 3.0 % [facility] BASO % 0.3 % [facility] GRAN MAT x10^3(ANC) 4.53 1.88 - 7.09 [facility] 10*3/uL [facility] IMM GRAN x10^3 0.07 (H) 0.00 - 0.06 [facility] 10*3/uL [facility] LYMPH x10^3 0.84 (L) 1.32 - 3.29 [facility] 10*3/uL [facility] MONO x10^3 0.63 0.33 - 0.92 [facility] 10*3/uL [facility] EOS x10^3 0.19 0.03 - 0.39 [facility] 10*3/uL [facility] BASO x10^3 <0.03 0.01 - 0.07 [facility] 10*3/uL [facility] Specimen Blood - HAND, LEFT Performing Organization Address City/[facility]/Zipcode Phone Number [facility] CLIA: [id number], [address] [place] [address] Lipase Serum (05/03/2019 1:24 AM MEDIA STRATEGIST) LIPASE 98 0 - 220 U/L [facility] Specimen Blood - HAND, LEFT Performing Organization Address City/[facility]/Zipcode Phone Number [facility] CLIA: [id number], [address] [place] [address] Hepatic Function Panel (ALB, T.PRO, BILI T, BU/BC, ALT, AST, ALK PHOS) (2019 1:24 AM MEDIA STRATEGIST) TOTAL BILI 1.3 (H) 0.1 - 1.1 mg/dL [facility] BILI UNCON 0.5 0.1 - 1.1 mg/dL [facility] BILI CONJ 0.0 0.0 - 0.3 mg/dL [facility] T PROTEIN 8.0 6.3 - 8.2 g/dL [facility] ALBUMIN 3.5 3.5 - 5.0 g/dL [facility] ALK PHOS 331 (H)Comment: 34 - 122 U/L [facility] ALTv 22 5 - 35 U/L [facility] AST(SGOT) 76 (H)Comment: 13 - 40 U/L [facility] Specimen Blood - HAND, LEFT Performing Organization Address City/State/Zipcode Phone Number [facility] CLIA: [id number], [address] [place] [address] Basic Metabolic Panel (NA, K, CL, CO2, GLUCOSE, BUN, CREATININE, CA) (2019 1:24 AM MEDIA STRATEGIST) NA 138 135 - 145 [facility] mmol/L [facility] K 5.3 (H)Comment: 3.5 - 5.0 [facility] Slight hemolysis mmol/L [facility] CL 110 (H) 98 - 108 [facility] mmol/L [facility] CO2 TOTAL 23 23 - 31 [facility] mmol/L [facility] AGAP 5 2 - 16 [facility] BUN 28 (H)Comment: 7 - 23 mg/dL [facility] GLUCOSE 237 (H) 70 - 110 [facility] mg/dL [facility] CREATININE 0.87 0.50 - 1.04 [facility] mg/dL [facility] CALCIUM 8.5 (L) 8.6 - 10.6 [facility] mg/dL [facility] eGFR Calculation 70.7 mL/min/1.73m2 [facility] (Non-[facility]) LABORATORY eGFR Calculation 85.7 mL/min/1.73m2 [facility]OR[facility]ORY Specimen Blood - HAND, LEFT Narrative Performed At Association of Glomerular Filtration Rate (GFR) [facility] and Staging of Kidney Disease* [...] tests). Performing Organization Address City/State/Zipcode Phone Number [facility] CLIA: [id number], [address] [place] [address] [facility] [address] documented in this encounter Visit Diagnoses Diagnosis Gastrointestinal hemorrhage, unspecified gastrointestinal hemorrhage type - Primary Lower abdominal pain Abdominal pain, other specified site Iron deficiency anemia due to chronic blood loss Iron deficiency anemia secondary to blood loss (chronic) Melena Blood in stool Alcoholic cirrhosis of liver with ascites Alcoholic cirrhosis of liver documented in this encounter Administered Medications Medication Order MAR Action Action Date Dose Rate Site cefTRIAXone (ROCEPHIN) 1,000 mg Given 05/07/2019 10:04 AM MEDIA STRATEGIST 1,000 mg in NaCl 0.9% (NS) 50 mL MINI-BAG 1,000 mg, IV Piggyback, Q24H ABX, 4 doses, First dose on Sun05/06/19 at 0630, Last dose on Sun05/09/19 at 0630, 50 mL, Reason for Anti-Infective: Empiric Therapy for Suspected Infection, Empiric Therapy Site: Abdominal, Duration of therapy: 72 hours Given 05/06/2019 7:28 AM MEDIA STRATEGIST 1,000 mg furosemide (LASIX) tablet 40 mg Given 05/07/2019 10:03 AM MEDIA STRATEGIST 40 mg 40 mg, Oral, DAILY, First dose on Sun05/06/19 at 0915, Until Discontinued, Routine Given 05/06/2019 10:33 AM MEDIA STRATEGIST 40 mg lidocaine 2% viscous (LIDOCAINE VISCOUS) 2 % Given 05/06/2019 12:59 AM MEDIA STRATEGIST 10 mL solution 10 mL 10 mL, Oral, Q6H, First dose on Sun05/04/19 at 1215, Until Discontinued, Routine Given 05/05/2019 11:28 AM MEDIA STRATEGIST 10 mL Given 05/05/2019 8:23 AM MEDIA STRATEGIST 10 mL omeprazole (PRILOSEC) capsule 40 mg Given 05/07/2019 10:03 AM MEDIA STRATEGIST 40 mg 40 mg, Oral, DAILY, First dose on Sun05/07/19 at 0900, Until Discontinued, Routine ondansetron (ZOFRAN (PF)) injection 4 mg Given 05/06/2019 6:33 PM MEDIA STRATEGIST 4 mg 4 mg, Slow IV Push, Q6HPRN, Starting Sun05/06/19 at 0900, Until Discontinued, Routine, Nausea and Vomiting (N/V) proMETHazine (PHENERGAN) 25 mg in NaCl 0.9% Given 05/05/2019 1:57 PM MEDIA STRATEGIST 25 mg (NS) 50 mL piggyback 25 mg, IV Piggyback, Q6HPRN, Starting Sun05/04/19 at 1207, Until Discontinued, 50 mL Given 05/05/2019 8:23 AM MEDIA STRATEGIST 25 mg propranolol (INDERAL) tablet 10 mg Given 05/07/2019 10:03 AM MEDIA STRATEGIST 10 mg 10 mg, Oral, BID, First dose on Sun05/06/19 at 2000, Until Discontinued, Routine Given 05/06/2019 7:33 PM MEDIA STRATEGIST 10 mg Sliding Scale Insulin - Aspart Given 05/07/2019 1:58 PM 1 Units Left Upper (NOVOLOG) + Fsbg Testing MEDIA STRATEGIST Arm-SC Subcutaneous, Q6H, First dose on Sun05/04/19 at 0600, Until Discontinued, Routine Given 05/07/2019 7:17 AM MEDIA STRATEGIST 3 Units Left Upper Arm-SC Given 05/07/2019 12:19 AM MEDIA STRATEGIST 3 Units Left Upper Arm-SC spironolactone (ALDACTONE) tablet 100 mg Given 05/07/2019 10:03 AM MEDIA STRATEGIST 100 mg 100 mg, Oral, DAILY, First dose on Sun05/06/19 at 0915, Until Discontinued, Routine Given 05/06/2019 10:33 AM MEDIA STRATEGIST 100 mg traMADol (ULTRAM) tablet 50 mg Given 05/06/2019 8:16 PM MEDIA STRATEGIST 50 mg 50 mg, Oral, [id number], Starting 05/05/19 at 2218, Until Discontinued, Routine, Pain (scale 4-6) Given 05/06/2019 12:15 PM MEDIA STRATEGIST 50 mg Medication Order MAR Action Action Date Dose Rate Site acetaminophen ADULT (OFIRMEV) Given 05/04/2019 9:08 PM MEDIA STRATEGIST 1,000 mg injection 1,000 mg 1,000 mg, IV Infusion, Administer over 15 Minutes, ONCE, 1 dose, [place] 05/04/19 at 1300, Routine, Indication: Non-perioperative Patient, Approved by: Per Policy (NPO Status) albumin (ALBUMINAR 25%) 25 % injection 25 g Given 05/06/2019 7:33 PM MEDIA STRATEGIST 25 g 25 g, IV Infusion, ONCE, 1 dose, Sun05/06/19 at 1930, 100 mL, Indication: HEPATORENAL SYNDROME (DIAGNOSIS), Comments: Dosin-8 g/L of ascitic fluid removed cefTRIAXone (ROCEPHIN) 1,000 mg in NaCl Given 05/05/2019 5:27 AM MEDIA STRATEGIST 1,000 mg 0.9% (NS) 50 mL MINI-BAG 1,000 mg, IV Piggyback, Q24H ABX, First dose on 05/03/19 at 0630, Until Discontinued, 50 mL, Reason for Anti-Infective: Empiric Therapy for Suspected Infection, Empiric Therapy Site: Abdominal, Duration of therapy: 72 hours Given 05/04/2019 7:40 AM MEDIA STRATEGIST 1,000 mg Given 05/03/2019 7:55 AM MEDIA STRATEGIST 1,000 mg dicyclomine (BENTYL) Given 05/06/2019 12:59 AM MEDIA STRATEGIST 20 mg Left Dorsogluteal-IM injection 20 mg 20 mg, Intramuscular, ONCE, 1 dose, 05/05/19 at 2330, Routine FENTanyl PF (SUBLIMAZE (PF)) injection 50 Given 05/03/2019 3:38 AM MEDIA STRATEGIST 50 mcg mcg 50 mcg, Slow IV Push, ONCE, 1 dose, 05/03/19 at 0430, Routine iohexol (OMNIPAQUE 350 BULK-150 mL) Given 05/03/2019 2:35 AM MEDIA STRATEGIST 150 mL injection 150 mL 150 mL, Intravenous, ONCE, 1 dose, 05/03/19 at 0245, Routine lidocaine (LIDODERM) 5 % (700 Applied 05/04/2019 11:05 PM MEDIA STRATEGIST 1 Patch Chest mg/patch) patch 1 Patch 1 Patch, Topical, Administer over 12 Hours, ONCE, 1 dose, 05/04/19 at 2345, Routine lidocaine 1% (PF) (XYLOCAINE) Given 05/03/2019 8:13 AM MEDIA STRATEGIST 4 mL Abdomen- SC injection 4 mL 4 mL, Subcutaneous, ONCE, 1 dose, 05/03/19 at 0845, Routine lidocaine 2% viscous (LIDOCAINE VISCOUS) 2 % Given 05/03/2019 4:42 PM MEDIA STRATEGIST 10 mL solution 10 mL 10 mL, Oral, Q4HPRN, Starting 05/03/19 at 1617, Until 05/04/19 at 1208, Routine, Oral mucosal pain maalox:diphenhydrAMINE:lidocaine 2 % viscous Given 05/05/2019 8:57 PM MEDIA STRATEGIST 15 mL 1:1:1 (FIRST-MOUTHWASH BLM) oral suspension 15 mL 15 mL, Oral, ONCE, 1 dose, 05/05/19 at 1645, Routine magnesium sulfate in water 2 gram/50 mL (4 %) New Bag 05/07/2019 10:04 AM MEDIA STRATEGIST 2 g infusion 2 g 2 g, IV Piggyback, ONCE, 1 dose, 05/07/19 at 0715, Routine morpHINE injection 2 mg Given 05/05/2019 4:05 PM MEDIA STRATEGIST 2 mg 2 mg, Slow IV Push, ONCE, 1 dose, 05/05/19 at 1715, Routine morpHINE injection 2 mg Given 05/05/2019 8:53 PM MEDIA STRATEGIST 2 mg 2 mg, Slow IV Push, ONCE, 1 dose, 05/05/19 at 2200, Routine NaCl 0.9% (NS) bolus New Bag 05/03/2019 1:24 AM MEDIA STRATEGIST 1,000 mL 999 mL/hr Left Hand infusion 1,000 mL at 999 mL/hr, 1,000 mL, IV Infusion, ONCE, 1 dose, 05/03/19 at 0115, ADEEL octreotide (SANDOSTATIN) 1,250 New Bag 05/03/2019 7:58 AM MEDIA STRATEGIST 50 mcg/hr 10 mL/hr mcg in NaCl 0.9% (NS) infusion 50 mcg/hr (10 mL/hr), IV Infusion, CONTINUOUS, Starting 05/03/19 at 0630, Until 05/03/19 at 1431 octreotide (SANDOSTATIN) 1,250 New Bag 05/05/2019 11:37 AM MEDIA STRATEGIST 50 mcg/hr 10 mL/hr mcg in NaCl 0.9% (NS) infusion 50 mcg/hr (10 mL/hr), IV Infusion, CONTINUOUS, Starting 05/03/19 at 1445, Until 05/06/19 at 1444 New Bag 05/04/2019 10:00 AM MEDIA STRATEGIST 50 mcg/hr 10 mL/hr Dose/Rate Verify 05/03/2019 8:00 PM MEDIA STRATEGIST 50 mcg/hr 10 mL/hr octreotide (SANDOSTATIN) injection 50 mcg Given 05/03/2019 7:57 AM MEDIA STRATEGIST 50 mcg 50 mcg, IV Push, ONCE, 1 dose, 05/03/19 at 0630, ADEEL ondansetron (ZOFRAN (PF)) injection 4 mg Given 05/03/2019 8:13 AM MEDIA STRATEGIST 4 mg 4 mg, Slow IV Push, ONCE, 1 dose, 05/03/19 at 0915, Routine ondansetron (ZOFRAN (PF)) injection 4 mg Given 05/03/2019 6:11 PM MEDIA STRATEGIST 4 mg 4 mg, Slow IV Push, ONCE, 1 dose, 05/03/19 at 1915, Routine ondansetron (ZOFRAN (PF)) injection 4 mg Given 05/06/2019 6:22 AM MEDIA STRATEGIST 4 mg 4 mg, Slow IV Push, Q6H, First dose on 05/04/19 at 1800, Until Discontinued, Routine Given 05/06/2019 12:59 AM MEDIA STRATEGIST 4 mg Given 05/05/2019 5:56 PM MEDIA STRATEGIST 4 mg ondansetron (ZOFRAN (PF)) injection 8 mg Given 05/04/2019 12:10 PM MEDIA STRATEGIST 8 mg 8 mg, Slow IV Push, ONCE, 1 dose, 05/04/19 at 1315, Routine pantoprazole (PROTONIX) 80 mg in NaCl 0.9% Given 05/03/2019 7:57 AM MEDIA STRATEGIST 80 mg (NS) 20 mL syringe 80 mg, IV Push, ONCE, 1 dose, 05/03/19 at 0630, 20 mL pantoprazole (PROTONIX) 80 mg in New Bag 05/03/2019 8:24 AM MEDIA STRATEGIST 8 mg/hr 50 mL/hr NaCl 0.9% (NS) 500 mL infusion 8 mg/hr (50 mL/hr), IV Piggyback, CONTINUOUS, Starting 05/03/19 at 0630, Until 05/03/19 at 1431, 500 mL pantoprazole (PROTONIX) 80 mg in New Bag 05/06/2019 8:59 AM MEDIA STRATEGIST 8 mg/hr 50 mL/hr NaCl 0.9% (NS) 500 mL infusion 8 mg/hr (50 mL/hr), IV Piggyback, CONTINUOUS, Starting 05/03/19 at 1445, Until 05/06/19 at 1444, 500 mL New Bag 05/05/2019 9:53 PM MEDIA STRATEGIST 8 mg/hr 50 mL/hr New Bag 05/05/2019 10:28 AM MEDIA STRATEGIST 8 mg/hr 50 mL/hr proMETHazine (PHENERGAN) 12.5 mg in NaCl Given 05/03/2019 11:00 AM MEDIA STRATEGIST 12.5 mg 0.9% (NS) 50 mL piggyback 12.5 mg, IV Piggyback, ONCE, 1 dose, 05/03/19 at 1130, 50 mL proMETHazine (PHENERGAN) 12.5 mg in NaCl Given 05/03/2019 4:42 PM MEDIA STRATEGIST 12.5 mg 0.9% (NS) 50 mL piggyback 12.5 mg, IV Piggyback, Q6HPRN, Starting 05/03/19 at 1418, Until 05/03/19 at 1858, 50 mL proMETHazine (PHENERGAN) 25 mg in NaCl 0.9% Given 05/04/2019 7:40 AM MEDIA STRATEGIST 25 mg (NS) 50 mL piggyback 25 mg, IV Piggyback, Q6HPRN, Starting 05/03/19 at 1857, Until 05/04/19 at 0926, 50 mL Given 05/04/2019 2:09 AM MEDIA STRATEGIST 25 mg Given 05/03/2019 8:00 PM MEDIA STRATEGIST 25 mg Sliding Scale Insulin - Aspart Given 05/04/2019 2:08 AM MEDIA STRATEGIST 2 Units Abdomen-SC (NOVOLOG) + Fsbg Testing Subcutaneous, Q4H, First dose on 05/03/19 at 0800, Until Discontinued, Routine Given 05/03/2019 10:00 PM MEDIA STRATEGIST 2 Units Abdomen-SC trimethobenzamide (TIGAN) Given 05/03/2019 6:45 PM MEDIA STRATEGIST 100 mg Right Deltoid-IM injection 100 mg 100 mg, Intramuscular, ONCE, 1 dose, 05/03/19 at 1915, Routine documented in this encounter
--- OUTSIDE RECORDS SUMMARY | 2019-05-16 17:53 | XMS REPORT | Summary of Care ---
:1975 Author Organization [facility] Address [address] [place] [address] Care Team Providers Name Role Phone Petra Huff Primary Care Provider Reason for Visit Reason Comments Notification Appointment Encounter Details Date Type Department Care Team Description 05/12/2019 Telephone [facility] Orthopaedic PalacioDavid joaquin MD Notification; Surgery- [address] Appointment Primary Care [id number] [place] [address] [id number] Allergies Active Allergy Reactions Severity Noted Date Comments Penicillins Itching, Nausea and/or Vomiting 05/09/2013 documented as of this encounter (statuses as of 05/12/2019) Medications Medication Sig Dispensed Refills Start Date [...] site Vomiting (N/V). fluticasone propionate Use 1 [place] in 16 g 0 04/18/2019 Active 50 [...] as of this encounter (statuses as of 05/12/2019) Active Problems Problem Noted Date Anemia 04/09/2019 Decompensated hepatic cirrhosis 04/09/2019 Esophageal varices determined by endoscopy 10/23/2018 Overview: Added automatically from request for surgery [id number] Diabetic neuropathy associated with type 2 diabetes mellitus 10/11/2018 Charcot's joint of ankle, right 10/11/2018 Charcot's joint of foot, right 10/11/2018 Fracture dislocation of ankle, right, closed, initial encounter 10/11/2018 Bleeding esophageal varices, unspecified esophageal varices type 10/10/2018 Overview: Added automatically from request for surgery [id number] Melena 09/28/2018 Hypotension due to hypovolemia 09/28/2018 GIB (gastrointestinal bleeding) 09/28/2018 Tibia/fibula fracture 09/22/2018 Pain pelvic 05/25/2013 Cirrhosis 05/25/2013 Abnormal menses 05/25/2013 UTI (urinary tract infection) 05/12/2013 Overview: Ok per Dr. Chaudhari to give Keflex 500mg BID x 7 days Encounter for routine gynecological examination 05/09/2013 Overview: ICD10 Diagnosis Term Yield Analyst Utility Type 2 diabetes mellitus without complications 05/09/2013 Overview: ICD10 Diagnosis Term Yield Analyst Utility Other and unspecified ovarian cyst 05/09/2013 Overview: Medical records from [facility] on 04/02/2013. Transvaginal USG. [...] as of this encounter (statuses as of 05/12/2019) Resolved Problems Problem Noted Date Resolved Date Other abnormal Papanicolaou smear of cervix and cervical 01/30/20082013 HPV(795.09) Contraceptive management 01/30/2008 05/09/2013 Overview: ICD10 Diagnosis Term Yield Analyst Utility delivery delivered 01/25/2008 05/09/2013 Overview: ICD10 Diagnosis Term Yield Analyst Utility Diabetes mellitus during , antepartum 11/05/2007 05/09/2013 Overview: ICD10 Diagnosis Term Yield Analyst Utility Other ill-defined heart disease 05/09/2013 Need for prophylactic vaccination with tetanus toxoid alone 05/09/2013 Other specified and placental problems affecting management of 2013 mother, antepartum Papanicolaou smear of cervix with low grade squamous intraepithelial 2013 lesion (LGSIL) Tubal ligation status 05/09/2013 documented as of this encounter (statuses as of 05/12/2019) Immunizations Name Administration Dates Next Due Influenza [...] Team Description 06/11/2019 Office Visit Orthopedic Surgery PalacioDavid MD [address] [place] [address] [phone] Health Maintenance Due Date Last Done Comments [...] of this encounter Implants Implanted Type Area Brokerage Purchase And Sale Clerk Device Shelf Model / Identifier Expiration Serial / Date Lot Six Shooter Farhat Multi-Band Ligater Band [facility] 06/13/2019 MBL-6 -F / Implanted: Qty: 3 on 05/03/2019 by Mya Holliday MD at [facility] 0 / [id number] Implant Orthopedic Endcap NAIL Right: [employer] 10/30/[id number] / Implanted: Qty: 2 on 12/03/2018 by Ric Sal MD at [facility] NA / [id number] Nail Intramedullary 10mm Elle 22cml NAIL Right: [employer] 07/30/[id number] / Implanted: Qty: 1 on 12/03/2018 by Ric Sal MD at [facility] AT [facility] NA / [id number] Screw Bone Compression 5mm Elle 85mml SCREW Right: [employer] [id number] / Implanted: Qty: 1 on 12/03/2018 by Ric Sal MD at [facility] AT [facility] NA / [id number] Screw Bone Compression 5mm Elle 30mml SCREW Right: [employer] [id number] / Implanted: Qty: 1 on 12/03/2018 by Ric Sal MD at [facility] AT [facility] NA / [id number] Screw Bone Compression 5mm Elle 30mml SCREW Right: [employer] [id number] / Implanted: Qty: 1 on 12/03/2018 by Ric Sal MD at [facility] AT [facility] NA / [id number] Rode Right: Leg Screw-03/08/2018 Right: Implanted: 03/08/2018 (Quantity not on file) Knee Foam Pack, [employer] 10cc #[id number] - Sna Right: [employer] 05/30/2020 / Implanted: Qty: 1 on 12/03/2018 by Ric Sal MD at [facility] NA / [id number] documented as of this encounter Results Not on filedocumented in this encounter Insurance Payer Benefit Plan / Subscriber ID Effective Phone Address Type Group Dates MEDICAID MEDICAID SSI PENDING 2019-[address] [place] [address] documented as of this encounter
--- NOTE | 2019-05-16 18:54 | EDPHYS ---
Physician Documentation [facility] Name: Rosanna York Age: 43 yrs Sex: Female : 1975 Arrival Date: 05/16/2019 Time: 17:39 Bed 15 Private MD: IVANNA Physician Abner Westbrook HPI: 05/16 18:37 This 43 yrs old Female presents to ER via Wheelchair with complaints of Post florentino Surgical Pain. 18:37 The patient presents with decreased range of motion, pain, swelling, tenderness. The florentino complaints affect the lateral aspect of left thigh, lateral aspect of left knee, left gluteal fold, left hamstring, posterior aspect of left knee, left inner thigh, medial aspect of left thigh, medial aspect of left knee, left upper thigh, left quadriceps and left knee. Context: resulted from the patient falling, left hip replacement on sunday. Onset: The symptoms/episode began/occurred 5 day(s) ago. Modifying factors: The symptoms are alleviated by elevating leg, remaining still, the symptoms are aggravated by movement, bending knee. Associated signs and symptoms: Pertinent positives: swelling, warmth, of the left leg. Severity of symptoms: At their worst the symptoms were moderate, in the emergency department the symptoms are unchanged. 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 - Coronavirus screen:: The patient has NOT traveled to [place] in the past 14 days. - Social history:: Smoking status: Patient/guardian denies using tobacco. - Family history:: not pertinent. - Ebola Screening: : Patient denies travel to an Ebola-affected area in the 21 days before illness onset. ROS: 18:37 Constitutional: Negative for fever, chills, and weight loss, Eyes: Negative for injury, florentino pain, redness, and discharge, ENT: Negative for injury, pain, and discharge, Neck: Negative for injury, pain, and swelling, Cardiovascular: Negative for chest pain, palpitations, and edema, Respiratory: Negative for shortness of breath, cough, wheezing, and pleuritic chest pain, Abdomen/GI: Negative for abdominal pain, nausea, vomiting, diarrhea, and constipation, Back: Negative for injury and pain, : Negative for injury, bleeding, discharge, and swelling, Neuro: Negative for headache, weakness, numbness, tingling, and seizure, Psych: Negative for depression, anxiety, suicide ideation, homicidal ideation, and hallucinations, Allergy/Immunology: Negative for hives, rash, and allergies, Endocrine: Negative for neck swelling, polydipsia, polyuria, polyphagia, and marked weight changes, Hematologic/Lymphatic: Negative for swollen nodes, abnormal bleeding, and unusual bruising. 18:37 MS/extremity: Positive for decreased range of motion, pain, tenderness, warmth, of the left leg. Exam: 18:37 Constitutional: This is a well developed, well nourished patient who is awake, alert, florentino and in no acute distress. Head/Face: Normocephalic, atraumatic. Eyes: Pupils equal round and reactive to light, extra-ocular motions intact. Lids and lashes normal. Conjunctiva and sclera are non-icteric and not injected. Cornea within normal limits. Periorbital areas with no swelling, redness, or edema. ENT: Nares patent. No nasal discharge, no septal abnormalities noted. Tympanic membranes are normal and external auditory canals are clear. Oropharynx with no redness, swelling, or masses, exudates, or evidence of obstruction, uvula midline. Mucous membranes moist. Neck: Trachea midline, no thyromegaly or masses palpated, and no cervical lymphadenopathy. Supple, full range of motion without nuchal rigidity, or vertebral point tenderness. No Meningismus. Chest/axilla: Normal chest wall appearance and motion. Nontender with no deformity. No lesions are appreciated. Cardiovascular: Regular rate and rhythm with a normal S1 and S2. No gallops, murmurs, or rubs. Normal PMI, no JVD. No pulse deficits. Respiratory: Lungs have equal breath sounds bilaterally, clear to auscultation and percussion. No rales, rhonchi or wheezes noted. No increased work of breathing, no retractions or nasal flaring. Abdomen/GI: Soft, non-tender, with normal bowel sounds. No distension or tympany. No guarding or rebound. No evidence of tenderness throughout. Back: No spinal tenderness. No costovertebral tenderness. Full range of motion. Neuro: Awake and alert, GCS 15, oriented to person, place, time, and situation. Cranial nerves II-XII grossly intact. Motor strength 5/5 in all extremities. Sensory grossly intact. Cerebellar exam normal. Normal gait. Psych: Awake, alert, with orientation to person, place and time. Behavior, mood, and affect are within normal limits. 18:37 Skin: cellulitis, that is moderate, induration, that is moderate is noted, located on the left leg. 19:40 Abdomen/GI: Rectal exam: is unremarkable, rectal tone normal, Stool: guaiac negative, florentino hemorrhoid(s), are not appreciated, mass, is not appreciated, swelling, is not appreciated, tenderness, is not appreciated. Vital Signs: 17:58 BP 120 / 63; Pulse 67; Resp 18; Temp 98.1; Pulse Ox 100% on R/A; Weight 70.31 kg (R); aj1 Height 5 ft. 6 in. (167.64 cm) (R); Pain 10/10; 21:00 BP 119 / 58; Pulse 69; Resp 17; Pulse Ox 97% on R/A; vc 21:30 BP 107 / 47; Pulse 68; Pulse Ox 94% on R/A; vc 22:30 BP 123 / 61; Pulse 70; Resp 16; Pulse Ox 98% on R/A; vc 23:15 BP 109 / 55; Pulse 65; Resp 17; Pulse Ox 95% on R/A; vc 05/17 00:00 BP 117 / 60; Pulse 66; Resp 17; Pulse Ox 98% on R/A; vc 05/16 17:58 Body Mass Index 25.02 (70.31 kg, 167.64 cm) aj MDM: 05/16 17:59 Patient medically screened. [facility] 18:43 Data reviewed: vital signs, nurses notes, lab test result(s), EKG, radiologic studies, [facility] doppler, plain films. 22:14 Physician consultation: was contacted at 22:15, regarding regarding transfer, to [facility]. patient's condition, DR Wu, on-call orthopedist, will consult and request transfer to services of hospitalist. 23:00 Physician consultation: was contacted at 22:40, regarding regarding transfer, to [facility]. patient's condition, DR Curtis, hospitalist services, declines transfer at this time. No concern for infected joint or prosthesis at this time. 05/16 18:35 Order name: Basic Metabolic Panel [facility] 05/16 18:35 Order name: CBC with Diff [facility] 05/16 18:35 Order name: LFT's [facility] 05/16 18:35 Order name: Magnesium [facility] 05/16 18:35 Order name: NT PRO-BNP [facility] 05/16 18:35 Order name: PT-INR [facility] 05/16 18:35 Order name: Troponin (emerg Dept Use Only) [facility] 05/16 18:35 Order name: Type And Screen [facility] 05/16 18:35 Order name: Lipase [facility] 05/16 18:35 Order name: AMMONIA [facility] 05/16 18:35 Order name: Urine Culture [facility] 05/16 18:35 Order name: Lactate [facility] 05/16 18:35 Order name: Procalcitonin [facility] 05/16 18:35 Order name: Blood Culture Adult (2) [facility] 05/16 19:16 Order name: CBC with Automated Diff; Complete Time: 19:39 EDMS 05/16 20:43 Interpretation: Normal except: WBC 6.7; RBC 2.79; HGB 8.0; HCT 24.5; PLT 165; RDW 19.0; cp MPV 8.6; LEONIDAS% 75.5; LYM% 8.4; LYMA 0.6. 05/16 19:16 Order name: Protime (+INR); Complete Time: 19:39 EDMS 05/16 19:51 Order name: Ammonia; Complete Time: 20:41 EDMS 05/16 19:55 Order name: Type and Screen; Complete Time: 20:41 EDMS 05/16 20:01 Order name: Basic Metabolic Panel; Complete Time: 20:41 EDMS 05/16 20:42 Interpretation: Normal except: GLUC 197; GFR 50. 05/16 20:01 Order name: Liver (Hepatic) Function; Complete Time: 20:41 EDMS 05/16 20:42 Interpretation: Normal except: AST 64; ALK 555; BILIT 2.0; BILID 1.0; ALB 2.6; GLOB cp 4.4; A/G 0.6. 05/16 20:01 Order name: Troponin (Emerg Dept Use Only); Complete Time: 20:41 EDMO 05/16 20:01 Order name: NT PRO-BNP; Complete Time: 20:41 EDMO 05/16 20:01 Order name: Magnesium; Complete Time: 20:41 EDMO 05/16 20:01 Order name: Lipase; Complete Time: 20:41 EDMO 05/16 20:05 Order name: Procalcitonin; Complete Time: 20:41 EDMO 05/16 20:42 Interpretation: Abnormal: Procalcitonin 0.55. cp 05/16 20:09 Order name: Urine Dipstick--Ancillary (enter results) [facility] 05/16 20:09 Order name: Urine --Ancillary (enter results) [facility] 05/16 20:18 Order name: Lactate; Complete Time: 20:41 EDMO 05/16 21:45 Order name: Urine --Ancillary; Complete Time: 22:12 EDMO 05/16 21:45 Order name: Urine Dipstick-Ancillary; Complete Time: 22:12 [facility] 05/16 18:35 Order name: XRAY Chest (1 view) [facility] 05/16 18:35 Order name: EKG; Complete Time: 18:37 [facility] 05/16 18:35 Order name: Cardiac monitoring; Complete Time: 20:41 [facility] 05/16 18:35 Order name: EKG - Nurse/Tech; Complete Time: 20:41 [facility] 05/16 18:35 Order name: IV Saline Lock; Complete Time: 20:41 [facility] 05/16 18:35 Order name: Labs collected and sent; Complete Time: 20:41 [facility] 05/16 18:35 Order name: O2 Per Protocol; Complete Time: 20:41 [facility] 05/16 18:35 Order name: O2 Sat Monitoring; Complete Time: 20:41 [facility] 05/16 18:35 Order name: Urine Dipstick-Ancillary (obtain specimen); Complete Time: 21:12 [facility] 05/16 18:35 Order name: Pelvis XRAY [facility] 05/16 18:35 Order name: Hip Left 2 View XRAY [facility] 05/16 18:35 Order name: Femur Left XRAY [facility] 05/16 18:36 Order name: Wound Care; Complete Time: 20:40 [facility] 05/16 18:42 Order name: US Extremity Venous W Compression Malvin [facility] 05/16 19:57 Order name: US; Complete Time: 20:41 EDMS 05/16 20:42 Interpretation: Report reviewed. 05/16 20:39 Order name: RAD; Complete Time: 20:41 EDMS 05/16 20:39 Order name: RAD; Complete Time: 20:41 EDMS 05/16 20:39 Order name: RAD; Complete Time: 20:41 EDMS 05/16 20:45 Order name: RAD; Complete Time: 22:12 EDMS EC:58 Rate is 65 beats/min. Rhythm is regular, Normal Sinus Rhythm with No ectopy. QRS [place] kdr is Normal. ND interval is normal. Clinical impression: NSR w/ Non-specific ST/T Changes. Administered Medications: 18:45 Drug: fentaNYL (PF) 25 mcg Route: IVP; Site: right antecubital; vc 19:30 Follow up: Response: No adverse reaction vc 18:45 Drug: Zofran 4 mg Route: IVP; Site: right antecubital; vc 19:45 Follow up: Response: No adverse reaction; Pain is decreased vc 20:30 Drug: Cefepime 2 grams Route: IVPB; Rate: 200 ml/hr; Infused Over: 30 mins; Site: right vc antecubital; 21:46 Follow up: IV Status: Completed infusion; IV Intake: 250ml vc 20:40 Drug: ProTONIX 40 mg Route: IVP; Site: right antecubital; vc 20:55 Follow up: Response: No adverse reaction vc 20:40 Drug: Bactroban Ointment 2 % 1 application Route: Topical; Site: wound; vc 20:40 Drug: vancoMYCIN 1 grams Route: IVPB; Infused Over: 2 hrs; Site: right antecubital; vc 21:30 Drug: fentaNYL (PF) 25 mcg Route: IVP; Site: right antecubital; vc 22:00 Follow up: Response: No adverse reaction vc 21:30 Drug: NS 0.9% 1000 ml Route: IV; Rate: 125 ml/hr; Site: right antecubital; vc Disposition: 02/14/20 22:44 Hospitalization ordered by Avani Banerjee for Inpatient Admission. Preliminary diagnosis is Cellulitis of left lower limb. - Bed requested for Telemetry/MedSurg (Inpatient). - Status is Inpatient Admission. hb - Condition is Stable. - Problem is new. - Symptoms have improved. Addendum: 05/19/2019 07:55 Co-signature as Attending Physician, Abner Westbrook MD I agree with the assessment and c aguayo plan of care. Signatures: Dispatcher [employer] EDSophie Epstein RN RN aj1 Rika Arita RN RN mw Anderson, Corey, MD MD cha Rittger, Kevin, MD MD kdr Page, Corey PA PA cp Ashlee Voss RN RN Jane Godfrey RN RN vc Corrections: (The following items were deleted from the chart) 05/16 21:34 18:51 Hospitalization Ordered by Avani Banerjee MD for Inpatient Admission. Preliminary cp diagnosis is Cellulitis and acute lymphangitis of other parts of limb; Impetigo - left knee; Alcoholic cirrhosis of liver; Type 1 diabetes mellitus; Pain in left leg. Bed requested for Telemetry/MedSurg (Inpatient). Status is Inpatient Admission. Condition is Fair. Problem is new. Symptoms are unchanged. [facility] 22:16 22:13 Physician consultation: DR Wu, on-call orthopedist, will consult on cp patient and request transfer under hospitalist services, 22:44 21:34 05/16/2019 21:[address] [facility]. cp Diagnosis is Cellulitis of left lower limb. Reason for transfer: Higher level of care. Accepting physician is Doctor. Condition is Stable. Problem is new. Symptoms have improved. 23:10 22:44 Hospitalization Ordered by Avani Banerjee MD for Inpatient Admission. Preliminary diagnosis is Cellulitis of left lower limb. Bed requested for Telemetry/MedSurg (Inpatient). Status is Inpatient Admission. Condition is Stable. Problem is new. Symptoms have improved. 05/17 00:36 05/16 23:10 05/16/2019 22:44 Hospitalization Ordered by Avani Banerjee MD for Inpatient hb Admission. Preliminary diagnosis is Cellulitis of left lower limb. Bed requested for Telemetry/MedSurg (Inpatient). Status is Inpatient Admission. Condition is Stable. Problem is new. Symptoms have improved. mw
--- NOTE | 2019-05-16 18:54 | ER ---
Nurse's Notes [facility] Name: Rosanna York Age: 43 yrs Sex: Female : 1975 Arrival Date: 05/16/2019 Time: 17:39 Bed 15 Private MD: Diagnosis: Cellulitis of left lower limb Presentation: 05/16 17:55 Presenting complaint: Patient states: "I got up earlier and I've been really sore aj1 because I had hip surgery 4 days ago, they released me home and said to walk with a walker and that's what I have been doing but I noticed my thigh is red and my whole leg is swollen and it hurts so bad that I can hardly stand". Transition of care: patient was not received from another setting of care. Onset of symptoms was May 2019. Risk Assessment: Do you want to hurt yourself or someone else? Patient reports no desire to harm self or others. Initial Sepsis Screen: Does the patient meet any 2 criteria? No. Patient's initial sepsis screen is negative. Does the patient have a suspected source of infection? No. Patient's initial sepsis screen is negative. Care prior to arrival: None. 17:55 Method Of Arrival: Wheelchair aj1 17:55 Acuity: BRYAN 3 aj1 Triage Assessment: 17:58 General: Appears in no apparent distress. uncomfortable, Behavior is calm, cooperative, aj1 appropriate for age. Pain: Complains of pain in left leg. Neuro: Level of Consciousness is awake, alert, obeys commands. Cardiovascular: Patient's skin is warm and dry. Respiratory: Airway is patent Respiratory effort is even, unlabored, Respiratory pattern is regular, symmetrical. 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 - Coronavirus screen:: The patient has NOT traveled to [place] in the past 14 days. - Social history:: Smoking status: Patient/guardian denies using tobacco. - Family history:: not pertinent. - Ebola Screening: : Patient denies travel to an Ebola-affected area in the 21 days before illness onset. Screenin:00 Abuse screen: Denies threats or abuse. Nutritional screening: No deficits noted. vc Tuberculosis screening: No symptoms or risk factors identified. Fall Risk None identified. Assessment: 18:05 General: Appears in no apparent distress. uncomfortable, Behavior is calm, cooperative, vc appropriate for age. Pain: Complains of pain in left knee and left quadriceps and left upper thigh and medial aspect of left knee and medial aspect of left thigh and left inner thigh Is episodic, Aggravated by repositioning, weight bearing. 18:05 Neuro: Level of Consciousness is awake, alert, obeys commands, Oriented to person, vc place, time, situation, Appropriate for age. Cardiovascular: Patient's skin is warm and dry. Respiratory: Airway is patent Respiratory effort is even, unlabored, Respiratory pattern is regular, symmetrical. GI: No signs and/or symptoms were reported involving the gastrointestinal system. : No signs and/or symptoms were reported regarding the genitourinary system. EENT: No deficits noted. Derm: Bruising that is bright red, on left hip and left upper thigh and medial aspect of left thigh and left inner thigh and lateral aspect of left thigh. Musculoskeletal: Circulation, motion, and sensation intact. Range of motion: limited in left hip Swelling present in left knee. 19:00 Reassessment: Patient and/or family updated on plan of care and expected duration. Pain vc level reassessed. Patient is alert, oriented x 3, equal unlabored respirations, skin warm/dry/pink. 20:00 Reassessment: Patient and/or family updated on plan of care and expected duration. Pain vc level reassessed. Patient is alert, oriented x 3, equal unlabored respirations, skin warm/dry/pink. 21:00 Reassessment: Patient and/or family updated on plan of care and expected duration. Pain vc level reassessed. Patient is alert, oriented x 3, equal unlabored respirations, skin warm/dry/pink. Patient states symptoms have improved. 22:00 Reassessment: Patient and/or family updated on plan of care and expected duration. Pain vc level reassessed. Patient is alert, oriented x 3, equal unlabored respirations, skin warm/dry/pink. Patient states symptoms have improved. 23:00 Reassessment: Patient and/or family updated on plan of care and expected duration. Pain vc level reassessed. Patient resting with eyes closed, chest rising and falling evenly. 05/17 00:00 Reassessment: Patient and/or family updated on plan of care and expected duration. Pain vc level reassessed. 00:20 Reassessment: Patient Alert, oriented X3. Patient admitted to second floor with an IV vc in bilateral ACs. Both IVs patent, dry, and intact. Respirations even, unlabored. Vital Signs: 05/16 17:58 BP 120 / 63; Pulse 67; Resp 18; Temp 98.1; Pulse Ox 100% on R/A; Weight 70.31 kg (R); aj1 Height 5 ft. 6 in. (167.64 cm) (R); Pain 10/10; 21:00 BP 119 / 58; Pulse 69; Resp 17; Pulse Ox 97% on R/A; vc 21:30 BP 107 / 47; Pulse 68; Pulse Ox 94% on R/A; vc 22:30 BP 123 / 61; Pulse 70; Resp 16; Pulse Ox 98% on R/A; vc 23:15 BP 109 / 55; Pulse 65; Resp 17; Pulse Ox 95% on R/A; vc 05/17 00:00 BP 117 / 60; Pulse 66; Resp 17; Pulse Ox 98% on R/A; vc 05/16 17:58 Body Mass Index 25.02 (70.31 kg, 167.64 cm) aj1 ED Course: 05/16 17:39 Patient arrived in ED. mr 17:57 Triage completed. aj1 17:58 Arm band placed on Patient placed in an exam room. aj1 17:59 Abner Westbrook MD is Attending Physician. florentino 18:15 Patient has correct armband on for positive identification. vc 18:49 Avani Banerjee MD is Hospitalizing Provider. florentino 18:51 Inserted saline lock: 22 gauge in left antecubital area, using aseptic technique. Blood jb1 collected. 19:15 Blood Culture Adult (2) Sent. jb1 19:15 Procalcitonin Sent. jb1 19:15 Lactate Sent. jb1 19:32 Jane Godfrey, RN is Primary Nurse. vc 21:08 Urine --Ancillary (enter results) Sent. vc 21:08 Urine Dipstick--Ancillary (enter results) Sent. vc 21:12 Urine Culture Sent. vc 21:33 Abner South PA is PHCP. cp 22:44 Avani Banerjee MD is Hospitalizing Provider. cp 05/17 00:35 No provider procedures requiring assistance completed. Patient admitted, IV remains in vc place. Administered Medications: 05/16 18:45 Drug: fentaNYL (PF) 25 mcg Route: IVP; Site: right antecubital; vc 19:30 Follow up: Response: No adverse reaction vc 18:45 Drug: Zofran 4 mg Route: IVP; Site: right antecubital; vc 19:45 Follow up: Response: No adverse reaction; Pain is decreased vc 20:30 Drug: Cefepime 2 grams Route: IVPB; Rate: 200 ml/hr; Infused Over: 30 mins; Site: right vc antecubital; 21:46 Follow up: IV Status: Completed infusion; IV Intake: 250ml vc 20:40 Drug: ProTONIX 40 mg Route: IVP; Site: right antecubital; vc 20:55 Follow up: Response: No adverse reaction vc 20:40 Drug: Bactroban Ointment 2 % 1 application Route: Topical; Site: wound; vc 20:40 Drug: vancoMYCIN 1 grams Route: IVPB; Infused Over: 2 hrs; Site: right antecubital; vc 21:30 Drug: fentaNYL (PF) 25 mcg Route: IVP; Site: right antecubital; vc 22:00 Follow up: Response: No adverse reaction vc 21:30 Drug: NS 0.9% 1000 ml Route: IV; Rate: 125 ml/hr; Site: right antecubital; vc Intake: 21:46 IV: 250ml; Total: 250ml. vc Outcome: 18:51 Decision to Hospitalize by Provider. florentino 21:34 ER care complete, transfer ordered by . cp 22:44 Decision to Hospitalize by Provider. cp 05/17 00:35 Admitted to Med/surg accompanied by tech, via wheelchair. vc Condition: good Instructed on the need for admit. 00:36 Patient left the ED. hb Signatures: Errol Esposito jb1 Sophie Barroso RN RN aj1 Abner Westbrook MD MD cha Rivera, Shagufta mr Abner South PA PA cp Baxter, Heather, RN RN Jane Godfrey RN RN vc
[2019-05-16] MEDS ORDERED: CEFEPIME 2 GM VIAL ONE (19:08)
[2019-05-16] MEDS ORDERED: PANTOPRAZOLE 40 MG INJ ONE (19:09)
[2019-05-16] MEDS ORDERED: FENTANYL CITR 100 MCG/2 ML ONE ×2 (19:09→21:27)
[2019-05-16] MEDS ORDERED: ONDANSETRON 4 MG/2 ML VIAL ONE (19:09)
[2019-05-16] MEDS ORDERED: VANCOMYCIN 1 GM/VIAL ONE (19:09)
[2019-05-16] MEDS ORDERED: MUPIROCIN 2% OINT 22GM TUBE TOP ONE (19:10)
[2019-05-16] MEDS ORDERED: NA CHLORIDE 0.9% 500 ML ONE (19:10)
[2019-05-16] MEDS ORDERED: NA CHLORIDE 0.9% 50 ML IV ONE (19:10)
[2019-05-16] MEDS ORDERED: NA CHLORIDE 0.9% 1,000 ML ONE (19:10)
[2019-05-16 19:13] LABS: Absolute Lymphocytes (CBC) 0.6 K/uL (0.7-4.9); Basophils % 0.5 % (0-1.3); Hematocrit 24.5 % (36.0-45.0); Lymphocytes % 8.4 % (15.3-44.8); MPV 8.6 fL (7.6-11.3); RBC Red Blood Cell Count 2.79 M/uL (3.86-4.86)
[2019-05-16 19:14] LABS: Protime INR 1.19
[2019-05-16 19:45] LABS: ALT/SGPT 36 U/L (12-78); AST/SGOT 64 U/L (15-37); Albumin 2.6 g/dL (3.4-5.0); Alkaline Phosphatase 555 U/L (45-117); BUN Blood Urea Nitrogen 18 mg/dL (7-18); Bicarbonate 31 mmol/L (21-32); Glucose Level 197 mg/dL (74-106); Lipase 352 U/L (73-393); Magnesium 1.8 mg/dL (1.8-2.4); NT PRO-BNP 382 pg/mL (<125); Potassium 3.8 mmol/L (3.5-5.1); Sodium Level 137 mmol/L (136-145); Troponin (Emerg Dept Use Only) < 0.02 ng/mL (0.0-0.045)
--- NOTE | 2019-05-16 19:53 | RAD REPORT ---
EXAM DESCRIPTION: USExtrem Venous W Compress Bil05/16/2019 7:37 pm CLINICAL HISTORY: Bilateral leg swelling COMPARISON: May 2018 FINDINGS: The common femoral, superficial femoral, popliteal and posterior tibial veins bilaterally are compressible and demonstrate augmentation. Doppler demonstrates good flow. IMPRESSION: No evidence of deep venous thrombosis involving either lower extremity.
--- NOTE | 2019-05-16 20:35 | RAD REPORT ---
EXAM DESCRIPTION: RAD - Pelvis - 05/16/2019 8:21 pm CLINICAL HISTORY: Pelvic pain FINDINGS: No fracture or dislocation is seen. Left femoral prosthesis is in place. Compression screws and intramedullary jenny in place into the righ t femur. The bones are osteoporotic. No acute fracture or dislocation
--- NOTE | 2019-05-16 20:36 | RAD REPORT ---
EXAM DESCRIPTION: RAD - Hip Left 2 View - 05/16/2019 8:22 pm CLINICAL HISTORY: Left hip pain FINDINGS: Left hip arthroplasty is been performed. Prosthesis is in good position without evidence of loosening. No fracture or dislocation Osteoporosis
--- NOTE | 2019-05-16 20:37 | RAD REPORT ---
EXAM DESCRIPTION: RAD - Femur Left - 05/16/2019 8:22 pm CLINICAL HISTORY: Left leg pain FINDINGS: Left hip arthroplasty is been performed. Prosthesis is in good position without evidence of loosenin g. No fracture or dislocation Osteoporosis Diffuse edema is seen within soft tissues
--- NOTE | 2019-05-16 20:38 | RAD REPORT ---
EXAM DESCRIPTION: Calvin Single View05/16/2019 8:21 pm CLINICAL HISTORY: Cough COMPARISON: May 08, 2019 FINDINGS: The lungs appear clear of acute infiltrate. The heart is normal size IMPRESSION: No acute abnormalities displayed
[2019-05-16 21:45] LABS: Urine Blood TRACE (NEG); Urine Glucose NEGATIVE (NEG); Urine Protein NEGATIVE (NEG); Urine Specific Gravity 1.015 (1.005-1.030); Urine pH 6.5 (5.0-7.0)
[2019-05-16] MEDS ORDERED: ONDANSETRON 4 MG/2 ML VIAL IV PRN (22:45)
[2019-05-16] MEDS ORDERED: ACETAMINOPHEN 500 MG TAB PO PRN (22:45)
[2019-05-17 00:38] VITALS: BMI 25.0
[2019-05-17] MEDS: MORPHINE 2 MG/ML SYR IV PRN ×4 (02:33→20:33)
--- NOTE | 2019-05-17 02:41 | P.HP ---
Certification for Inpatient Patient admitted to: Inpatient With expected LOS: >2 Midnights Patient will require the following post-hospital care: None Practitioner: I am a practitioner with admitting privileges, knowledge of patient current condition, hospital course, and medical plan of care. Services: Services provided to patient in accordance with Admission requirements found in Title 42 Section 412.3 of the Code of Federal Regulations Patient History Date of Service: 05/16/19 Reason for admission: Status post left hip surgery; cellulitis of the left leg History of Present Illness: Patient is a 43-year-old female who has a history of liver cirrhosis who presents to the emergency room with pain in her left leg. She recently had surgery on a fractured left femur. She was transferred from our hospital to [facility] in [place]. She had a repair of her femur fracture. She did well, and she was discharged home a few days ago. However 24 hr ago she started having severe pain. She said this was not being managed at home. She came to the ER. She has significant erythema and edema of the left leg. This went from her thigh to her knee region. She has significant bruising on the lower part of her leg as well. Will continue her on antibiotics and will reassess. She may need further imaging studies to evaluate. We did try to make an attempt to transfer her back to [facility]. She was accepted by orthopedic physicians; however, the hospitalist team did not accept the transfer. Will admit her to our hospital and treat her aggressively here at our facility and monitor her closely. Allergies Penicillins Allergy (Verified 03/24/18 17:25) Nausea/Vomiting Home Medications: Amitriptyline [Elavil*] 25 mg PO BEDTIME 02/02/18 Fluoxetine HCl [Prozac] 40 mg PO DAILY 02/02/18 Alendronate Sodium [Fosamax] 70 mg PO EVERY 7TH DAY 02/23/18 Fluticasone Propionate 1 spr MATTHIAS DAILY 05/08/19 Aspirin [Aspir-Low] 1 tab PO DAILY 05/17/19 Furosemide 1 tab PO DAILY 05/17/19 Gabapentin [Neurontin*] 600 mg PO BID 05/17/19 Insulin Degludec [Tresiba] 42 units SQ BID 05/17/19 Midodrine HCl 1 tab PO TID 05/17/19 Pantoprazole [Protonix Tab*] 40 mg PO DAILY 05/17/19 Spironolactone 1 tab PO DAILY 05/17/19 - Past Medical/Surgical History Has patient received pneumonia vaccine in the past: No Diabetic: Yes -: Diabetes mellitus type 2, insulin dependent -: Liver cirrhosis -: Diabetic neuropathy -: Depression -: Insomnia -: Acute Kidney Injury -: Thrombocytopenia -: Pulmonary Edema -: Thrombocytopenia -: Bilateral lower leg cellulitis -: Bilateral Osteomyelitis -: Bilateral Osteomyelitis -: Cholecystectomy -: Right hip surgery -: Right Ankle surgery -: Right knee surgery Psychosocial/ Personal History: Patient is . She has 5 children. 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 - Family History Mother Medical History: Diabetes - Social History Smoking Status: Former smoker Alcohol use: Yes CD- Drugs: No Caffeine use: Yes Place of Residence: Home Review of Systems 10-point ROS is otherwise unremarkable Physical Examination - Vital Signs Temperature: 97.8 F Blood Pressure: 113/54 Pulse: 64 Respirations: 20 Pulse Ox (%): 100 - Physical Exam General: Alert, In no apparent distress, Oriented x3 HEENT: Atraumatic, PERRLA, Mucous membr. moist/pink, EOMI, Sclerae nonicteric Neck: Supple, 2+ carotid pulse no bruit, No LAD, Without JVD or thyroid abnormality Respiratory: Clear to auscultation bilaterally, Normal air movement Cardiovascular: Regular rate/rhythm, Normal S1 S2, No murmurs Gastrointestinal: Normal bowel sounds, Soft and benign, Non-distended, No tenderness Musculoskeletal: No clubbing, No swelling, No tenderness Integumentary: No rashes, Tenderness/swelling, Erythema, Warmth Neurological: Normal gait, Normal speech, Normal tone, Sensation intact, Cranial nerves 3-12 intact, Normal affect, Abnormal strength (Generalized weakness: 4-/5) Lymphatics: No axilla or inguinal lymphadenopathy - Studies Laboratory Data (last 24 hrs) 05/16/19 18:55: PT 13.9 H, INR 1.19 05/16/19 18:55: WBC 6.7 D, Hgb 8.0 L, Hct 24.5 L D, Plt Count 165 D 05/16/19 18:55: Sodium 137, Potassium 3.8, BUN 18, Creatinine 1.17, Glucose 197 H, Magnesium 1.8 D, Total Bilirubin 2.0 H, AST 64 H, ALT 36, Alkaline Phosphatase 555 H, Lipase 352 Assessment & Plan - Problems (Diagnosis) (1) Cellulitis of left lower extremity Current Visit: Yes Status: Acute (2) Left displaced femoral neck fracture Current Visit: Yes Status: Acute (3) Cirrhosis Onset Date: 01/15/17 Current Visit: No Status: Chronic Qualifiers: (4) Diabetes mellitus, type II Onset Date: 02/04/18 Current Visit: No Status: Chronic Qualifiers: (5) History of alcohol use Current Visit: No Status: Chronic (6) Thrombocytopenia Onset Date: 02/25/18 Current Visit: No Status: Chronic (7) Anemia Current Visit: Yes Status: Acute Qualifiers: Anemia type: iron deficiency - Plan 1. Continue with IV antibiotic 2. Continue with local wound care 3. If cellulitis is not improving may need CT imaging 4. Gentle IV hydration 5. Monitor CBC 6. Strict blood sugar monitoring 7. Pain control 8. Monitor H&H closely and transfuse if hemoglobin less than 8.0 9. GI and DVT prophylaxis Discharge Plan: Home Plan to discharge in: Greater than 2 days - Advance Directives Does patient have a Living Will: No Does patient have a Durable POA for Healthcare: No - Code Status/Comfort Care Code Status Assessed: Yes Code Status: Full Code Critical Care: No Time Spent Managing PTS Care (In Minutes): 45
[2019-05-17] MEDS ORDERED: NA CHLORIDE 0.9% 100 ML ONE (02:45)
[2019-05-17] MEDS ORDERED: CLINDAMYCIN IV 150 MG/ML (6 mL) VIAL ONE (02:50)
[2019-05-17] MEDS ORDERED: CLINDAMYCIN INJ 600 MG in NA CHLORIDE 0.9% 50 ML IV SCH (03:00)
[2019-05-17] MEDS ORDERED: Levofloxacin500mg IV 500 MG/100 ML BAG IV SCH (03:00)
[2019-05-17 06:06] LABS: Absolute Lymphocytes (CBC) 0.4 K/uL (0.7-4.9); Basophils % 0.3 % (0-1.3); Hematocrit 22.7 % (36.0-45.0); Lymphocytes % 8.5 % (15.3-44.8); MPV 8.3 fL (7.6-11.3); RBC Red Blood Cell Count 2.56 M/uL (3.86-4.86)
[2019-05-17 06:07] LABS: RBC Red Blood Cell Count 2.52 M/uL (3.86-4.86)
[2019-05-17 06:25] LABS: Potassium 3.6 mmol/L (3.5-5.1)
[2019-05-17 06:51] LABS: Folic Acid, (Folate) 16.9 ng/mL (3.1-17.5)
--- NOTE | 2019-05-17 06:54 | EKG ---
Test Date: 2019-05-16 Test Time: 20:33:06 Legal Service Specialist: FAUZIA MEASUREMENT RESULTS: Intervals: Rate: 65 CA: 188 QRSD: 98 QT: 418 QTc: 434 [place]: P: 49 CA: 188 QRS: -16 T: 44 INTERPRETIVE STATEMENTS: Normal sinus rhythm Normal ECG Compared to ECG 06/14/2018 14:15:54 No significant changes Electronically Signed On 05-17-19 06:53:40 [employer]CH SAL[employer] SERVICE REPRESENTATIVE by Ruslan Chan
--- NOTE | 2019-05-17 08:23 | P.PN ---
Subjective Date of Service: 05/17/19 Primary Care Provider: Unknown Chief Complaint: Status post left hip surgery; cellulitis of the left leg Subjective: Other (Patient is stable at this time.) Physical Examination - Vital Signs Temperature: 98.4 F Blood Pressure: 95/53 Pulse: 58 Respirations: 18 Pulse Ox (%): 98 - Physical Exam General: Alert, In no apparent distress, Oriented x3, Cooperative HEENT: Atraumatic Neck: Supple Respiratory: Clear to auscultation bilaterally, Normal air movement Cardiovascular: Normal pulses, Regular rate/rhythm Gastrointestinal: Normal bowel sounds, Soft and benign, Non-distended Integumentary: Other (Edema noted to the left lower extremity compared to the right with pitting. Postoperative changes noted to the left hip. There is erythema, warmth, and ecchymosis noted near the site of surgery to the left upper hip and posteriorly to the thigh down to the knee. 1 to 2+ pitting edema to the lower extremity below the knee.) Neurological: Normal speech, Normal strength at 5/5 x4 extr, Normal tone, Normal affect - Studies Laboratory Data (last 24 hrs) 05/16/19 18:55: PT 13.9 H, INR 1.19 05/16/19 18:55: WBC 6.7 D, Hgb 8.0 L, Hct 24.5 L D, Plt Count 165 D 05/16/19 18:55: Sodium 137, Potassium 3.8, BUN 18, Creatinine 1.17, Glucose 197 H, Magnesium 1.8 D, Total Bilirubin 2.0 H, AST 64 H, ALT 36, Alkaline Phosphatase 555 H, Lipase 352 Medications List Reviewed: Yes Assessment & Plan Discharge Plan: Transfer Plan to discharge in: 24 Hours Physician Review Additional Text: Impression: Status post left femur fracture repair now with swelling, warmth, ecchymosis likely related to postoperative cellulitis and hematoma Acute on chronic Anemia of chronic disease with thrombocytopenia Diabetes mellitus type 2 insulin dependent Patient with history of hypotension on midodrine Diabetic neuropathy Liver cirrhosis Plan: Status post left femur fracture repair now with swelling, warmth, ecchymosis likely related to postoperative cellulitis and hematoma: Patient was anemic this morning compared to yesterday. Initial hemoglobin 8.0, now 7.4. Platelet count initially 165 now 121. Will provide 1 unit of blood. Procalcitonin elevated. Blood cultures obtained. Will adjust IV antibiotic therapy. Patient continue with vancomycin and Levaquin. Previous information reviewed, patient had surgery at [facility] by Orthopedics due to complexity of her medical problems. Patient had been accepted to Orthopedics yesterday in the emergency room. Apparently [facility] hospitalist refused patient. I do not know why hospitalist refused as the patient had the surgery there. Patient still needs assessment by Orthopedics as this may be related to postoperative cellulitis with hematoma. Will obtain CT scan with and without contrast of the lower extremity to evaluate for hematoma and/or bleeding. Patient prefers to be up in [place]. In light of her recent surgery and current condition, will re -initiate transfer for higher level of care. Patient will require reassessment by prior orthopedic. Orthopedic evaluation of cellulitis and suspected hematoma will be required. Patient may require further intervention. Will continue with transfusion. Maintain hemoglobin above 7.5. Will monitor closely. Patient agrees with plan of care and desires to be up in [place] to further evaluate. Acute on chronic Anemia of chronic disease with thrombocytopenia: Will transfuse 1 unit of pack red blood cells. Maintain hemoglobin above 7.5. Will monitor hemoglobin closely. Will also monitor platelet count due to her liver disease. Diabetes mellitus type 2 insulin dependent: Continue Accu-Cheks and provide sliding scale. Chronic renal disease stage III: Continue monitor closely. Patient with history of hypotension on midodrine: Continue with revision medication to maintain blood pressure. Diabetic neuropathy: Continue with medication and gabapentin. Liver cirrhosis: Continue with diuretic therapy. Time Spent Managing Pts Care (In Minutes): 55
[2019-05-17] MEDS ORDERED: NS IVPB SCH (09:00)
[2019-05-17] MEDS ORDERED: HOME MED [FLUTICASONE 50MCG NASAL SPRAY] NAS SCH (09:00)
[2019-05-17] MEDS ORDERED: FLUTICASONE 50MCG NASAL SPRAY NAS SCH (09:00)
[2019-05-17] MEDS ORDERED: FUROSEMIDE 40 MG TABLET PO SCH (09:00)
[2019-05-17] MEDS ORDERED: FLUOXETINE 20 MG CAP PO SCH (09:00)
[2019-05-17] MEDS ORDERED: VANCOMYCIN 1.25 GM in NA CHLORIDE 0.9% 250 ML IVPB SCH ×5 (09:00→15:00)
[2019-05-17] MEDS ORDERED: INSULIN DEGLUDEC 15 UNIT SQ SCH (09:00)
[2019-05-17] MEDS ORDERED: ASPIRIN EC 81 MG TAB PO SCH (09:00)
[2019-05-17] MEDS ORDERED: VANCOMYCIN IVPB SCH (09:00)
[2019-05-17] MEDS ORDERED: INSULIN DEGLUDEC 42 UNIT SQ SCH (09:00)
[2019-05-17] MEDS ORDERED: PANTOPRAZOLE 40MG TABLET PO SCH (09:00)
[2019-05-17] MEDS ORDERED: SPIRONOLACTONE 100 MG TAB PO SCH (09:00)
[2019-05-17] MEDS: GABAPENTIN 300 MG CAP PO SCH ×2 (09:03→20:31)
[2019-05-17] MEDS: MIDODRINE HCL 5 MG TABLET PO SCH ×3 (09:03→20:32)
[2019-05-17] MEDS ORDERED: NA CHLORIDE 0.9% 250 ML ONE (09:40)
--- NOTE | 2019-05-17 09:44 | RAD REPORT ---
EXAM DESCRIPTION: CT - Femur Left Wo Con - 05/17/2019 9:00 am CLINICAL HISTORY: Left leg pain and swelling TECHNIQUE: Computed axial tomography was obtained from the left hip to below the left knee All CT scans are performed using dose optimization technique as appropriate and may include automated exposure control or mA/KV adjustment according to patient size. FINDINGS: Left hip arthroplasty has been performed for a left femoral fracture. A couple of air bubbles surroun d the left hip. Diffuse edema is present throughout the subcutaneous tissues of the pelvis and legs. This has the asad earance of anasarca. In addition there is asymmetric extensive edema within the subcutaneous tissues extending from the left hip to below the left knee. A soft tissue abscess is not seen. A hematoma is not visualized. Small left knee joint effusion is present. Small to moderate amount of ascites within the pelvis. IMPRESSION: A left hip arthroplasty has been performed Diffuse edema within the subcutaneous tissues has the appearance of anasarca. In addition there is extensive a asymmetric edema within the subcutaneous tissues extending from the left hip to below the left knee having the appearance of a cellulitis. Couple of air bubbles which street rround of the left hip probably related to infection.
--- NOTE | 2019-05-17 09:45 | RAD REPORT ---
EXAM DESCRIPTION: CT - Pelvis W/Cont - 05/17/2019 9:00 am CLINICAL HISTORY: Left hip pain and swelling COMPARISON: None. TECHNIQUE: Computed axial tomography of the pelvis was obtained for. 50 cc [id number] administered i ntravenously All CT scans are performed using dose optimization technique as appropriate and may include automated exposure control or mA/KV adjustment according to patient size. FINDINGS: Left hip arthroplasty has been performed for a left femoral fracture. A couple of air bubb les surround the left hip. Diffuse edema is present throughout the subcutaneous tissues of the pelvis and legs. This has the asad earance of anasarca. In addition there is asymmetric extensive edema within the subcutaneous tissues extending from the left hip to below the left knee. A soft tissue abscess is not seen. A hematoma is not visualized. Small left knee joint effusion is present. Small to moderate amount of ascites within the pelvis. IMPRESSION: A left hip arthroplasty has been performed Diffuse edema within the subcutaneous tissues has the appearance of anasarca. In addition there is extensive a asymmetric edema within the subcutaneous tissues extending from the left hip to below the left knee having the appearance of a cellulitis. Couple of air bubbles which street rround of the left hip probably related to infection.
[2019-05-17] MEDS ORDERED: FUROSEMIDE 20 MG/ 2ML VIAL IV ONE (11:00)
[2019-05-17 15:13] LABS: Hematocrit 27.7 % (36.0-45.0)
[2019-05-17 16:25] VITALS: BP 146/65; TEMP 97.9
[2019-05-17] MEDS ORDERED: GLUCAGON 1 MG/VIAL IM PRN (16:35)
[2019-05-17] MEDS ORDERED: D50W 25 GM/50 ML SYRINGE/VIAL IV PRN (16:35)
[2019-05-17] MEDS: INSULIN -REGULAR HUMAN 50 UNIT/0.5 ML ML SQ SCH ×2 (17:05→20:38)
[2019-05-17] MEDS ORDERED: AMITRIPTYLINE 25 MG TAB PO SCH (21:00)
[2019-05-17 22:02] VITALS: O2SAT 96
--- NOTE | 2019-05-18 06:26 | P.DS ---
Discharge Date: 05/17/19 Primary Care Provider: Unknown Disposition: TRANSFER TO [facility] Discharge Condition: FAIR Reason for Admission: Status post left hip surgery; cellulitis of the left leg - Problems (1) Cellulitis of left lower extremity Status: Acute (2) Left displaced femoral neck fracture Status: Acute (3) Cirrhosis Onset Date: 01/15/17 Status: Chronic Qualifiers: (4) Diabetes mellitus, type II Onset Date: 02/04/18 Status: Chronic Qualifiers: (5) History of alcohol use Status: Chronic (6) Thrombocytopenia Onset Date: 02/25/18 Status: Chronic (7) Anemia Status: Acute Qualifiers: Anemia type: iron deficiency Brief History of Present Illness: Patient is a 43-year-old female who has a history of liver cirrhosis who presents to the emergency room with pain in her left leg. She recently had surgery on a fractured left femur. She was transferred from our hospital to [facility] [place] [place] in [place]. She had a repair of her femur fracture. She did well, and she was discharged home a few days ago. However 24 hr ago she started having severe pain. She said this was not being managed at home. She came to the ER. She has significant erythema and edema of the left leg. This went from her thigh to her knee region. She has significant bruising on the lower part of her leg as well. Will continue her on antibiotics and will reassess. She may need further imaging studies to evaluate. We did try to make an attempt to transfer her back to [facility] [place], [place]. She was accepted by orthopedic physicians; however, the hospitalist team did not accept the transfer. Will admit her to our hospital and treat her aggressively here at our facility and monitor her closely. Vital Signs/Physical Exam: Temp Pulse Resp BP Pulse Ox 97.9 F 65 18 146/65 H 98 05/17/19 16:00 05/17/19 16:00 05/17/19 16:08 05/17/19 16:00 05/17/19 16:08 Laboratory Data at Discharge: WBC 4.7 K/uL (4.3-10.9) D 05/17/19 05:28 Hgb 9.0 g/dL (12.0-15.0) L 05/17/19 15:04 Hct 27.7 % (36.0-45.0) L D 05/17/19 15:04 Plt Count 121 K/uL (152-406) L D 05/17/19 05:28 PT 13.9 SECONDS (9.5-12.5) H 05/16/19 18:55 INR 1.19 05/16/19 18:55 Sodium 139 mmol/L (136-145) 05/17/19 05:28 Potassium 3.6 mmol/L (3.5-5.1) 05/17/19 05:28 BUN 16 mg/dL (7-18) 05/17/19 05:28 Creatinine 1.06 mg/dL (0.55-1.3) 05/17/19 05:28 Glucose 176 mg/dL (74-106) H 05/17/19 05:28 Magnesium 1.8 mg/dL (1.8-2.4) D 05/16/19 18:55 Total Bilirubin 2.0 mg/dL (0.2-1.0) H 05/16/19 18:55 AST 64 U/L (15-37) H 05/16/19 18:55 ALT 36 U/L (12-78) 05/16/19 18:55 Alkaline Phosphatase 555 U/L (45-117) H 05/16/19 18:55 Lipase 352 U/L (73-393) 05/16/19 18:55 Home Medications: Amitriptyline [Elavil*] 25 mg PO BEDTIME 02/02/18 Fluoxetine HCl [Prozac] 40 mg PO DAILY 02/02/18 Alendronate Sodium [Fosamax] 70 mg PO EVERY 7TH DAY 02/23/18 Fluticasone Propionate 1 spr MATTHIAS DAILY 05/08/19 Aspirin [Aspir-Low] 1 tab PO DAILY 05/17/19 Furosemide 1 tab PO DAILY 05/17/19 Gabapentin [Neurontin*] 600 mg PO BID 05/17/19 Insulin Degludec [Tresiba] 42 units SQ BID 05/17/19 Midodrine HCl 1 tab PO TID 05/17/19 Pantoprazole [Protonix Tab*] 40 mg PO DAILY 05/17/19 Spironolactone 1 tab PO DAILY 05/17/19
== END 2019-05-17 21:39 | disposition short-term general hospital (02) | DRG 919 ==
LOC: ER 17:36 → ERHOLD 22:45 → 2ND 05-17 00:14
PROVIDERS: ADMIT Hospitalist; ATTEND Hospitalist
DX: L76.32 Postprocedural hematoma of skin and subcutaneous tissue following other procedure (principal); S72.002A Fracture of unspecified part of neck of left femur, initial encounter for closed fracture; L03.116 Cellulitis of left lower limb; L76.82 Other postprocedural complications of skin and subcutaneous tissue; Y83.8 Other surgical procedures as the cause of abnormal reaction of the patient, or of later complication, without mention of misadventure at the time of the procedure; K74.60 Unspecified cirrhosis of liver; E11.9 Type 2 diabetes mellitus without complications; D69.6 Thrombocytopenia, unspecified; D50.9 Iron deficiency anemia, unspecified; I95.9 Hypotension, unspecified; E11.40 Type 2 diabetes mellitus with diabetic neuropathy, unspecified
CPT/HCPCS: 36415; 36430; 71045; 72170; 72193; 73700; 80048; 80076; 81003; 81025; 82140; 82607; 82746; 82947; 83540; 83605; 83690; 83735; 83880; 84145; 84484; 85014; 85018; 85025; 85044; 85610; 86850; 86900; 86901; 87040; 87086; 87088; 93005; 93970; 96365; 96375; 99285; C9113; J0692; J1940; J2270; J2405; J3010; J3370; J7030; P9016; Q9967

== ENCOUNTER 2019-06-12 01:58 | Observation (INO) | payer SELFPAY ==
--- OUTSIDE RECORDS SUMMARY | 2019-06-12 02:04 | XMS REPORT ---
:1975 [facility] Address [address] [place] [address] Dr. Watters [address] [place] [address] Care Team Providers Name Role Phone LEONIDES CHEN Unavailable Unavailable KYLE BACA Unavailable Unavailable Problems This patient has no known problems. Allergies, Adverse Reactions, Alerts This patient has no known allergies or adverse reactions. Medications This patient has no known medications. Results Test Description Test Time Test Comments Text Results Atomic Results Result Comments BODY FLUID CULTURE + GRAM STAIN 2019-05-23 09:40:00 Test Item Value Reference Range Comments CULTURE (BEAKER) (test wmfn=3383) No growth GRAM STAIN RESULT (BEAKER) (test rstc=8891) 1+ WBCs GRAM STAIN RESULT (BEAKER) (test ernd=07535) No organisms seen POCT-GLUCOSE [id number] 08:30:00 Test Item Value Reference Range Comments POC-GLUCOSE METER (BEAKER) 144 mg/dL 70-110 : TESTED AT [place] [id number] (test cffg=4515) [facility], [address]: Head Waiter/Travel Journalist [id number] for ROSANNA SOMMER POCT-GLUCOSE [id number] 22:04:00 Test Item Value Reference Range Comments POC-GLUCOSE METER (BEAKER) 146 mg/dL 70-110 : TESTED AT [place] [id number] (test amka=1758) [facility], [address]: Head Waiter/Travel Journalist [id number] for JAGRUTI BACON POCT-GLUCOSE [id number] 17:58:00 Test Item Value Reference Range Comments POC-GLUCOSE METER (BEAKER) 93 mg/dL 70-110 : TESTED AT [address] (test feht=2643) [facility], [address]: Head Waiter/Travel Journalist [id number] for MARLINE FRANCO POCT-GLUCOSE [id number] 17:45:00 Test Item Value Reference Range Comments POC-GLUCOSE METER (BEAKER) 70 mg/dL 70-110 : TESTED AT [address] (test smph=5630) [facility], [address]: Head Waiter/Travel Journalist [id number] for SABRINAIC, NADA POCT-GLUCOSE [id number] 12:53:00 Test Item Value Reference Range Comments POC-GLUCOSE METER (BEAKER) 107 mg/dL 70-110 : TESTED AT [address] (test qkqr=6368) [facility], [address]: Head Waiter/Travel Journalist [id number] for STOJCIC, NADA POCT-GLUCOSE [id number] 08:31:00 Test Item Value Reference Range Comments POC-GLUCOSE METER (BEAKER) 102 mg/dL 70-110 : TESTED AT [address] (test ovbr=7040) [facility], [address]: Head Waiter/Travel Journalist [id number] for STOJCIC, NADA BASIC METABOLIC [id number] 06:16:00 Test Item Value Reference Range Comments SODIUM (BEAKER) (test 136 meq/L 136-145 tqey=010) POTASSIUM (BEAKER) (test 4.5 meq/L 3.5-5.1 egng=230) CHLORIDE (BEAKER) (test 102 meq/L 98-107 oebh=308) CO2 (BEAKER) (test 28 meq/L 22-29 vgfg=628) BLOOD UREA NITROGEN 12 mg/dL 7-21 (BEAKER) (test mafn=997) CREATININE (BEAKER) (test 1.10 mg/dL 0.57-1.25 atsv=778) GLUCOSE RANDOM (BEAKER) 111 mg/dL 70-105 (test nfzu=193) CALCIUM (BEAKER) (test 8.4 mg/dL 8.4-10.2 egfn=624) EGFR (BEAKER) (test 54 mL/min/1.73 sq m ESTIMATED GFR IS NOT lqqi=6249) ACCURATE CREATININE CLEARANCE IN PREDICTING GLOMERULAR FILTRATION RATE. ESTIMATED GFR IS NOT APPLICABLE FOR DIALYSIS PATIENTS. Head Waiter ID - PIAYA LCBC W/PLT COUNT & AUTO [id number] 05:08:00 Test Item Value Reference Range Comments WHITE BLOOD CELL COUNT (BEAKER) (test racs=897) 5.8 K/ L 3.5-10.5 RED BLOOD CELL COUNT (BEAKER) (test lplr=879) 2.87 M/ L 3.93-5.22 HEMOGLOBIN (BEAKER) (test xtgf=972) 8.4 GM/DL 11.2-15.7 HEMATOCRIT (BEAKER) (test zhxl=991) 26.7 % 34.1-44.9 MEAN CORPUSCULAR VOLUME (BEAKER) (test fkpt=980) 93.0 fL 79.4-94.8 MEAN CORPUSCULAR HEMOGLOBIN (BEAKER) (test 29.3 pg 25.6-32.2 tkgp=376) MEAN CORPUSCULAR HEMOGLOBIN CONC (BEAKER) (test 31.5 GM/DL 32.2-35.5 ebpn=899) RED CELL DISTRIBUTION WIDTH (BEAKER) (test 17.1 % 11.7-14.4 zsxn=072) PLATELET COUNT (BEAKER) (test yenw=229) 142 K/CU MM 150-450 MEAN PLATELET VOLUME (BEAKER) (test lgau=601) 10.6 fL 9.4-12.3 NUCLEATED RED BLOOD CELLS (BEAKER) (test 0 /100 WBC 0-0 scit=540) NEUTROPHILS RELATIVE PERCENT (BEAKER) (test 72 % ulcy=006) LYMPHOCYTES RELATIVE PERCENT (BEAKER) (test 13 % ywqe=852) MONOCYTES RELATIVE PERCENT (BEAKER) (test 9 % hgda=436) EOSINOPHILS RELATIVE PERCENT (BEAKER) (test 5 % uzcn=104) BASOPHILS RELATIVE PERCENT (BEAKER) (test 1 % ubef=698) NEUTROPHILS ABSOLUTE COUNT (BEAKER) (test 4.20 K/ L 1.56-6.13 xtxp=830) LYMPHOCYTES ABSOLUTE COUNT (BEAKER) (test 0.77 K/ L 1.18-3.74 ztjk=390) MONOCYTES ABSOLUTE COUNT (BEAKER) (test 0.50 K/ L 0.24-0.36 gycq=878) EOSINOPHILS ABSOLUTE COUNT (BEAKER) (test 0.29 K/ L 0.04-0.36 utmb=357) BASOPHILS ABSOLUTE COUNT (BEAKER) (test 0.03 K/ L 0.01-0.08 ukml=852) IMMATURE GRANULOCYTES-RELATIVE PERCENT (BEAKER) 1 % 0-1 (test mkrv=6339) POCT-GLUCOSE [id number] 04:38:00 Test Item Value Reference Range Comments POC-GLUCOSE METER (BEAKER) 105 mg/dL 70-110 : TESTED AT [address] (test mnfk=0210) [facility], [address]: Head Waiter/Travel Journalist [id number] for FRENCH VAZQUEZ POCT-GLUCOSE [id number] 03:17:00 Test Item Value Reference Range Comments POC-GLUCOSE METER (BEAKER) 93 mg/dL 70-110 : TESTED AT [address] (test qhvd=6549) [facility], [address]: Head Waiter/Travel Journalist [id number] for GREEN, PAMELAR POCT-GLUCOSE [id number] 02:08:00 Test Item Value Reference Range Comments POC-GLUCOSE METER (BEAKER) 94 mg/dL 70-110 : TESTED AT [address] (test mzha=0239) [facility], [address]: Head Waiter/Travel Journalist [id number] for GREEN, PAMELAR POCT-GLUCOSE [id number] 01:10:00 Test Item Value Reference Range Comments POC-GLUCOSE METER (BEAKER) 90 mg/dL 70-110 : TESTED AT [address] (test fdnh=6726) [facility], [address]: Head Waiter/Travel Journalist [id number] for GREEN, PAMELAR POCT-GLUCOSE [id number] 00:21:00 Test Item Value Reference Range Comments POC-GLUCOSE METER (BEAKER) 69 mg/dL 70-110 : TESTED AT [address] (test sjit=3202) [facility], [address]: Head Waiter/Travel Journalist [id number] for JAGRUTI BACON TISSUE [id number] 18:31:00Surgical Pathology Report Case: [id number] Authorizing Provider: Rolando Calvo Collected: 05/11/2019 1437 MD Jim OrderingLocation: [address] Received: [id number] Service Pathologist: Tsaneem Tan MD Specimen: Femur , Left LEFT FEMORAL HEAD, STATUS POST FRACTURE, HEMIARTHROPLASTY: - INTER-TRABECULAR HEMORRHAGE AND FRAGMENTED BONE , CONSISTENT WITH RECENT FRACTURE - SUGGESTIVE OF OSTEOPENIA - BONE MARROW WITH TRILINEAGE HEMATOPOIESIS - NO MALIGNANCY SEEN Signing Pathologist Direct Phone Line: [phone] signed by Tasneem Tan MD on 05/21/2019 at 6:31 [id number]; [id number] femoral neck fracture Femoral head, left hipReceived in formalin labeled with the patient's name, accession number and "femoral head, lefthip" is a 4.5 x 4.5 x 3.7 cm femoral head with up to 1.5 cm of attached jagged femoral neck. The articular surface is smooth to finely granular and focally erythematous. The subcapital surface is diffusely hemorrhagic and jagged. The cut surface is garrido- yellow, diffusely hemorrhagic at the margin, trabeculated and firm with cortical bone measuring up 0.2 cm thick. Optometric Aide sections are submittedin A1-A3 following decalcification, with the margin in A1. PA/maria dolores PERFORMEDPOCT-GLUCOSE [id number] 17:38:00 Test Item Value Reference Range Comments POC-GLUCOSE METER (BEAKER) 127 mg/dL 70-110 : TESTED AT [address] (test ccvm=7607) [facility], [address]: Head Waiter/Travel Journalist [id number] for SALVADOR NADLurdes POCT-GLUCOSE [id number] 12:13:00 Test Item Value Reference Range Comments POC-GLUCOSE METER (BEAKER) 123 mg/dL 70-110 : TESTED AT [address] (test bbej=1354) [facility], [address]: Head Waiter/Travel Journalist [id number] for SABRINAIC, NADA BASIC METABOLIC [id number] 11:37:00 Test Item Value Reference Range Comments SODIUM (BEAKER) (test 134 meq/L 136-145 hrzu=229) POTASSIUM (BEAKER) (test 4.3 meq/L 3.5-5.1 boqb=814) CHLORIDE (BEAKER) (test 100 meq/L 98-107 zfry=514) CO2 (BEAKER) (test 28 meq/L 22-29 rorr=731) BLOOD UREA NITROGEN 12 mg/dL 7-21 (BEAKER) (test xegk=966) CREATININE (BEAKER) (test 1.02 mg/dL 0.57-1.25 tzhz=946) GLUCOSE RANDOM (BEAKER) 159 mg/dL 70-105 (test jxkg=977) CALCIUM (BEAKER) (test 8.3 mg/dL 8.4-10.2 nvfk=661) EGFR (BEAKER) (test 59 mL/min/1.73 sq m ESTIMATED GFR IS NOT efxx=4263) ACCURATE CREATININE CLEARANCE IN PREDICTING GLOMERULAR FILTRATION RATE. ESTIMATED GFR IS NOT APPLICABLE FOR DIALYSIS PATIENTS. Head Waiter ID - YIFAN FPROTHROMBIN TIME/[id number] 11:19:00 Test Item Value Reference Range Comments PROTIME (BEAKER) (test awbx=621) 15.0 seconds 11.9-14.2 INR (BEAKER) (test btpo=269) 1.2 <=5.9 Effective 08/28/2018: PT Reference Range ChangeNew: 11.9-14.2 Previous: 11.7- 14.7RECOMMENDED COUMADIN/WARFARIN INR THERAPY RANGESSTANDARD DOSE: 2.0-3.0 Includes: PROPHYLAXIS for venous thrombosis, systemic embolization; TREATMENT for venous thrombosis and/or pulmonary embolus.HIGH RISK: Target INR is2.5-3.5 for patients wiht mechanical heart valves.CBC W/PLT COUNT & AUTO [id number] 11:09:00 Test Item Value Reference Range Comments WHITE BLOOD CELL COUNT (BEAKER) (test llek=093) 6.3 K/ L 3.5-10.5 RED BLOOD CELL COUNT (BEAKER) (test fuju=804) 2.86 M/ L 3.93-5.22 HEMOGLOBIN (BEAKER) (test ftnr=188) 8.3 GM/DL 11.2-15.7 HEMATOCRIT (BEAKER) (test nxia=386) 26.4 % 34.1-44.9 MEAN CORPUSCULAR VOLUME (BEAKER) (test qwjc=731) 92.3 fL 79.4-94.8 MEAN CORPUSCULAR HEMOGLOBIN (BEAKER) (test 29.0 pg 25.6-32.2 sgaa=087) MEAN CORPUSCULAR HEMOGLOBIN CONC (BEAKER) (test 31.4 GM/DL 32.2-35.5 jnfw=320) RED CELL DISTRIBUTION WIDTH (BEAKER) (test 17.2 % 11.7-14.4 apbf=376) PLATELET COUNT (BEAKER) (test hdal=637) 132 K/CU MM 150-450 MEAN PLATELET VOLUME (BEAKER) (test ajts=179) 10.1 fL 9.4-12.3 NUCLEATED RED BLOOD CELLS (BEAKER) (test 0 /100 WBC 0-0 pmjq=040) NEUTROPHILS RELATIVE PERCENT (BEAKER) (test 74 % oqlo=383) LYMPHOCYTES RELATIVE PERCENT (BEAKER) (test 11 % hnxa=208) MONOCYTES RELATIVE PERCENT (BEAKER) (test 9 % dehm=578) EOSINOPHILS RELATIVE PERCENT (BEAKER) (test 5 % wcfi=557) BASOPHILS RELATIVE PERCENT (BEAKER) (test 0 % qytt=259) NEUTROPHILS ABSOLUTE COUNT (BEAKER) (test 4.65 K/ L 1.56-6.13 jxsc=741) LYMPHOCYTES ABSOLUTE COUNT (BEAKER) (test 0.70 K/ L 1.18-3.74 cvkr=769) MONOCYTES ABSOLUTE COUNT (BEAKER) (test 0.58 K/ L 0.24-0.36 njmv=555) EOSINOPHILS ABSOLUTE COUNT (BEAKER) (test 0.31 K/ L 0.04-0.36 ofys=469) BASOPHILS ABSOLUTE COUNT (BEAKER) (test 0.02 K/ L 0.01-0.08 fqze=543) IMMATURE GRANULOCYTES-RELATIVE PERCENT (BEAKER) 1 % 0-1 (test aoqi=4881) POCT-GLUCOSE [id number] 07:41:00 Test Item Value Reference Range Comments POC-GLUCOSE METER (BEAKER) 122 mg/dL 70-110 : TESTED AT [address] (test qmvf=5364) [facility], [address]: Head Waiter/Travel Journalist [id number] for MARLINE FRANCO POCT-GLUCOSE [id number] 22:18:00 Test Item Value Reference Range Comments POC-GLUCOSE METER (BEAKER) 168 mg/dL 70-110 : TESTED AT [address] (test afqs=9043) [facility], [address]: Head Waiter/Travel Journalist [id number] for JACEK SACHI BODY FLUID CELL COUNT WITH [id number] 14:46:00 Test Item Value Reference Range Comments APPEARANCE FLUID (BEAKER) (test evpy=992) Cloudy Clear COLOR FLUID (BEAKER) (test cbve=974) Red Colorless, Straw RBC FLUID (BEAKER) (test mbma=941) 518886 /cu mm <=1 ADJUSTED WBC FLUID (BEAKER) (test fxld=4495) 6131 /cu mm <=5 LINING CELLS (BEAKER) (test oufw=9689) 0 /cu mm <=1 NEUTROPHILS FLUID (BEAKER) (test ljor=7521) 83 % LYMPHS FLUID (BEAKER) (test atpv=001) 3 % MONO/MACROPHAGE FLUID (BEAKER) (test 9 % bfbh=630) EOSINOPHILS FLUID (BEAKER) (test vtff=453) 0 % BASO FLUID (BEAKER) (test bunx=187) 0 % CONTAINER BODY FLUID (BEAKER) (test Sterile Vial pksd=3775) POCT-GLUCOSE [id number] 14:29:00 Test Item Value Reference Range Comments POC-GLUCOSE METER (BEAKER) 127 mg/dL 70-110 : TESTED AT [address] (test hlvf=7547) [facility], [address]: Head Waiter/Travel Journalist [id number] for GIGI KLINE RAD, HIP, 2 VIEWS, [id number] 13:35:00Reason for exam:-> HemiarthroplastyShould this be performed at the bedside?->YesFINAL REPORT TECHNIQUE: Two views of the left hip. INDICATION: Hemiarthroplasty. COMPARISON: Radiograph from 05/11/2019. FINDINGS/IMPRESSION: The left hemiarthroplasty has a slightly different orientation than on the prior. The femoral head component is more horizontal than on theprior, although the left femur is in the same alignment as on the prior. This could be due to articulation of the device. However, correlation with the hardware and surgical history is recommended to rule out hardware failure. Signed: Kaleb Culp [facility] Verified Date/Time: 05/20/2019 13:35:46 Reading Location: [facility] Radiology Reading Room POCT-GLUCOSE [id number] 07:31:00 Test Item Value Reference Range Comments POC-GLUCOSE METER (BEAKER) 85 mg/dL 70-110 : TESTED AT [address] (test zkby=7793) [facility], [address]: Head Waiter/Travel Journalist [id number] for GIGI KLINE [id number] 06:47:00 Test Item Value Reference Range Comments MAGNESIUM (BEAKER) (test mzuq=912) 1.8 mg/dL 1.6-2.6 Head Waiter ID - YOLANDA MBASIC METABOLIC [id number] 06:47:00 Test Item Value Reference Range Comments SODIUM (BEAKER) (test 137 meq/L 136-145 uecx=558) POTASSIUM (BEAKER) (test 4.2 meq/L 3.5-5.1 khmq=145) CHLORIDE (BEAKER) (test 100 meq/L 98-107 edkl=331) CO2 (BEAKER) (test 30 meq/L 22-29 ctsd=343) BLOOD UREA NITROGEN 10 mg/dL 7-21 (BEAKER) (test jibo=796) CREATININE (BEAKER) (test 0.97 mg/dL 0.57-1.25 weaa=275) GLUCOSE RANDOM (BEAKER) 80 mg/dL 70-105 (test srxx=528) CALCIUM (BEAKER) (test 8.8 mg/dL 8.4-10.2 pblx=851) EGFR (BEAKER) (test 62 mL/min/1.73 sq m ESTIMATED GFR IS NOT okmh=0354) ACCURATE CREATININE CLEARANCE IN PREDICTING GLOMERULAR FILTRATION RATE. ESTIMATED GFR IS NOT APPLICABLE FOR DIALYSIS PATIENTS. Head Waiter ID - YOLANDA MHEPATIC FUNCTION [id number] 06:47:00 Test Item Value Reference Range Comments TOTAL PROTEIN (BEAKER) (test fouq=654) 6.9 gm/dL 6.0-8.3 ALBUMIN (BEAKER) (test ofqj=6694) 3.0 g/dL 3.5-5.0 BILIRUBIN TOTAL (BEAKER) (test jzrw=204) 1.8 mg/dL 0.2-1.2 BILIRUBIN DIRECT (BEAKER) (test ugsd=834) 1.2 mg/dL 0.1-0.5 ALKALINE PHOSPHATASE (BEAKER) (test nmyo=072) 536 U/L 40-150 AST (SGOT) (BEAKER) (test kull=101) 70 U/L 5-34 ALT (SGPT) (BEAKER) (test uffk=268) 29 U/L 6-55 Head Waiter ID - YOLANDA MPROTHROMBIN TIME/[id number] 06:22:00 Test Item Value Reference Range Comments PROTIME (BEAKER) (test ogwg=682) 15.0 seconds 11.9-14.2 INR (BEAKER) (test hrzd=369) 1.2 <=5.9 Effective 08/28/2018: PT Reference Range ChangeNew: 11.9-14.2 Previous: 11.7- 14.7RECOMMENDED COUMADIN/WARFARIN INR THERAPY RANGESSTANDARD DOSE: 2.0-3.0 Includes: PROPHYLAXIS for venous thrombosis, systemic embolization; TREATMENT for venous thrombosis and/or pulmonary embolus.HIGH RISK: Target INR is2.5-3.5 for patients wiht mechanical heart valves.CBC (HEMOGRAM ONLY)2019-05-20 06:13:00 Test Item Value Reference Range Comments WHITE BLOOD CELL COUNT (BEAKER) (test maae=624) 7.1 K/ L 3.5-10.5 RED BLOOD CELL COUNT (BEAKER) (test yhqb=849) 3.03 M/ L 3.93-5.22 HEMOGLOBIN (BEAKER) (test noma=680) 8.8 GM/DL 11.2-15.7 HEMATOCRIT (BEAKER) (test bfct=868) 27.9 % 34.1-44.9 MEAN CORPUSCULAR VOLUME (BEAKER) (test chas=827) 92.1 fL 79.4-94.8 MEAN CORPUSCULAR HEMOGLOBIN (BEAKER) (test 29.0 pg 25.6-32.2 nnmf=755) MEAN CORPUSCULAR HEMOGLOBIN CONC (BEAKER) (test 31.5 GM/DL 32.2-35.5 likx=665) RED CELL DISTRIBUTION WIDTH (BEAKER) (test 17.6 % 11.7-14.4 iukk=926) PLATELET COUNT (BEAKER) (test cgdp=205) 134 K/CU MM 150-450 MEAN PLATELET VOLUME (BEAKER) (test viej=996) 10.2 fL 9.4-12.3 NUCLEATED RED BLOOD CELLS (BEAKER) (test 0 /100 WBC 0-0 nhvc=140) POCT-GLUCOSE [id number] 21:26:00 Test Item Value Reference Range Comments POC-GLUCOSE METER (BEAKER) 190 mg/dL 70-110 : TESTED AT [facility] [address] (test hfzp=0659) [facility], [address]: Head Waiter/Travel Journalist [id number] for SACHI READ POCT-GLUCOSE [id number] 17:55:00 Test Item Value Reference Range Comments POC-GLUCOSE METER (BEAKER) 152 mg/dL 70-110 : TESTED AT [address] (test yeqv=4888) [facility], [address]: Head Waiter/Travel Journalist [id number]=[id number] for GIGI KLINE POCT-GLUCOSE [id number] 12:59:00 Test Item Value Reference Range Comments POC-GLUCOSE METER (BEAKER) 154 mg/dL 70-110 : TESTED AT [address] (test hnaw=1366) [facility], [address]: Head Waiter/Travel Journalist GC=[id number] for CLAY PANDAALEAH POCT-GLUCOSE [id number] 07:46:00 Test Item Value Reference Range Comments POC-GLUCOSE METER (BEAKER) 163 mg/dL 70-110 : TESTED AT [address] (test ocxw=0598) [facility], [address]: Head Waiter/Travel Journalist [id number] for CLAY PANDAALEAH BASIC METABOLIC [id number] 05:24:00 Test Item Value Reference Range Comments SODIUM (BEAKER) (test 134 meq/L 136-145 xkhq=524) POTASSIUM (BEAKER) (test 4.1 meq/L 3.5-5.1 pzps=804) CHLORIDE (BEAKER) (test 98 meq/L 98-107 xtil=138) CO2 (BEAKER) (test 30 meq/L 22-29 djxx=304) BLOOD UREA NITROGEN 13 mg/dL 7-21 (BEAKER) (test vwjz=266) CREATININE (BEAKER) (test 1.17 mg/dL 0.57-1.25 malt=706) GLUCOSE RANDOM (BEAKER) 242 mg/dL 70-105 (test ztzd=653) CALCIUM (BEAKER) (test 7.9 mg/dL 8.4-10.2 vjjh=197) EGFR (BEAKER) (test 50 mL/min/1.73 sq m ESTIMATED GFR IS NOT wmac=4044) ACCURATE CREATININE CLEARANCE IN PREDICTING GLOMERULAR FILTRATION RATE. ESTIMATED GFR IS NOT APPLICABLE FOR DIALYSIS PATIENTS. Head Waiter ID - PIAYA LPROTHROMBIN TIME/[id number] 04:53:00 Test Item Value Reference Range Comments PROTIME (BEAKER) (test igwh=469) 15.4 seconds 11.9-14.2 INR (BEAKER) (test alfx=480) 1.3 <=5.9 Effective 08/28/2018: PT Reference Range ChangeNew: 11.9-14.2 Previous: 11.7- 14.7RECOMMENDED COUMADIN/WARFARIN INR THERAPY RANGESSTANDARD DOSE: 2.0-3.0 Includes: PROPHYLAXIS for venous thrombosis, systemic embolization; TREATMENT for venous thrombosis and/or pulmonary embolus.HIGH RISK: Target INR is2.5-3.5 for patients wiht mechanical heart valves.[id number] 04:51:00 Test Item Value Reference Range Comments MAGNESIUM (BEAKER) (test cnjf=157) 1.7 mg/dL 1.6-2.6 Head Waiter ID - CRYSTAL LHEPATIC FUNCTION [id number] 04:51:00 Test Item Value Reference Range Comments TOTAL PROTEIN (BEAKER) (test qrkx=631) 6.0 gm/dL 6.0-8.3 ALBUMIN (BEAKER) (test adut=6254) 2.6 g/dL 3.5-5.0 BILIRUBIN TOTAL (BEAKER) (test nghy=303) 1.6 mg/dL 0.2-1.2 BILIRUBIN DIRECT (BEAKER) (test ymhw=309) 1.0 mg/dL 0.1-0.5 ALKALINE PHOSPHATASE (BEAKER) (test hype=745) 479 U/L 40-150 AST (SGOT) (BEAKER) (test sywk=879) 39 U/L 5-34 ALT (SGPT) (BEAKER) (test lleq=981) 22 U/L 6-55 Head Waiter ID - CRYSTAL LCBC (HEMOGRAM ONLY)2019-05-19 04:24:00 Test Item Value Reference Range Comments WHITE BLOOD CELL COUNT (BEAKER) (test ztvk=836) 6.4 K/ L 3.5-10.5 RED BLOOD CELL COUNT (BEAKER) (test vqru=553) 2.61 M/ L 3.93-5.22 HEMOGLOBIN (BEAKER) (test pkca=193) 7.6 GM/DL 11.2-15.7 HEMATOCRIT (BEAKER) (test xfbd=744) 23.8 % 34.1-44.9 MEAN CORPUSCULAR VOLUME (BEAKER) (test rgad=004) 91.2 fL 79.4-94.8 MEAN CORPUSCULAR HEMOGLOBIN (BEAKER) (test 29.1 pg 25.6-32.2 tmgv=297) MEAN CORPUSCULAR HEMOGLOBIN CONC (BEAKER) (test 31.9 GM/DL 32.2-35.5 lxex=945) RED CELL DISTRIBUTION WIDTH (BEAKER) (test 17.8 % 11.7-14.4 nmsd=965) PLATELET COUNT (BEAKER) (test fruj=789) 120 K/CU MM 150-450 MEAN PLATELET VOLUME (BEAKER) (test owwx=339) 10.2 fL 9.4-12.3 NUCLEATED RED BLOOD CELLS (BEAKER) (test 0 /100 WBC 0-0 gshr=993) POCT-GLUCOSE [id number] 20:06:00 Test Item Value Reference Range Comments POC-GLUCOSE METER (BEAKER) 228 mg/dL 70-110 : TESTED AT [address] (test ycao=3358) [facility], [address]: Head Waiter/Travel Journalist [id number] for JAGRUTI BACON POCT-GLUCOSE [id number] 17:17:00 Test Item Value Reference Range Comments POC-GLUCOSE METER (BEAKER) 258 mg/dL 70-110 : TESTED AT [address] (test ctue=5549) [facility], [id number]: Head Waiter/Travel Journalist [id number] for CLAY, [place] POCT-GLUCOSE [id number] 12:16:00 Test Item Value Reference Range Comments POC-GLUCOSE METER (BEAKER) 191 mg/dL 70-110 : TESTED AT [address] (test pexf=7817) [facility], [id number]: Head Waiter/Travel Journalist [id number] for CLAY, [place] POCT-GLUCOSE [id number] 07:46:00 Test Item Value Reference Range Comments POC-GLUCOSE METER (BEAKER) 128 mg/dL 70-110 : TESTED AT [address] (test svsg=5303) [facility], [id number]: Head Waiter/Travel Journalist [id number] for CLAY, [place] POCT-GLUCOSE [id number] 06:39:00 Test Item Value Reference Range Comments POC-GLUCOSE METER (BEAKER) 187 mg/dL 70-110 : TESTED AT [facility] [address] (test hacv=5375) [facility], [id number]: Head Waiter/Travel Journalist [id number] for JAGRUTI BACON PROTHROMBIN [id number] 04:49:00 Test Item Value Reference Range Comments PROTIME (BEAKER) (test iuzs=487) 14.9 seconds 11.9-14.2 INR (BEAKER) (test bbui=578) 1.2 <=5.9 Effective 08/28/2018: PT Reference Range ChangeNew: 11.9-14.2 Previous: 11.7- 14.7RECOMMENDED COUMADIN/WARFARIN INR THERAPY RANGESSTANDARD DOSE: 2.0-3.0 Includes: PROPHYLAXIS for venous thrombosis, systemic embolization; TREATMENT for venous thrombosis and/or pulmonary embolus.HIGH RISK: Target INR is2.5-3.5 for patients wiht mechanical heart valves.[id number] 04:33:00 Test Item Value Reference Range Comments MAGNESIUM (BEAKER) (test dobo=198) 1.6 mg/dL 1.6-2.6 Head Waiter ID - KENNBASIC METABOLIC [id number] 04:33:00 Test Item Value Reference Range Comments SODIUM (BEAKER) (test 136 meq/L 136-145 wvrg=541) POTASSIUM (BEAKER) (test 3.3 meq/L 3.5-5.1 lvvs=345) CHLORIDE (BEAKER) (test 98 meq/L 98-107 gkvf=701) CO2 (BEAKER) (test 31 meq/L 22-29 ihuk=070) BLOOD UREA NITROGEN 13 mg/dL 7-21 (BEAKER) (test ofzf=038) CREATININE (BEAKER) (test 1.05 mg/dL 0.57-1.25 bsvt=900) GLUCOSE RANDOM (BEAKER) 163 mg/dL 70-105 (test fsfw=374) CALCIUM (BEAKER) (test 8.1 mg/dL 8.4-10.2 kzxd=137) EGFR (BEAKER) (test 57 mL/min/1.73 sq m ESTIMATED GFR IS NOT jyop=8460) ACCURATE CREATININE CLEARANCE IN PREDICTING GLOMERULAR FILTRATION RATE. ESTIMATED GFR IS NOT APPLICABLE FOR DIALYSIS PATIENTS. Head Waiter ID - KENNHEPATIC FUNCTION [id number] 04:33:00 Test Item Value Reference Range Comments TOTAL PROTEIN (BEAKER) (test clpt=847) 6.1 gm/dL 6.0-8.3 ALBUMIN (BEAKER) (test nsjh=1557) 2.7 g/dL 3.5-5.0 BILIRUBIN TOTAL (BEAKER) (test mhja=503) 1.9 mg/dL 0.2-1.2 BILIRUBIN DIRECT (BEAKER) (test ffin=407) 1.2 mg/dL 0.1-0.5 ALKALINE PHOSPHATASE (BEAKER) (test uipq=254) 542 U/L 40-150 AST (SGOT) (BEAKER) (test nouk=868) 63 U/L 5-34 ALT (SGPT) (BEAKER) (test pdvy=462) 27 U/L 6-55 Head Waiter ID - KENNCBC (HEMOGRAM ONLY)2019-05-18 04:14:00 Test Item Value Reference Range Comments WHITE BLOOD CELL COUNT (BEAKER) (test insh=078) 5.7 K/ L 3.5-10.5 RED BLOOD CELL COUNT (BEAKER) (test lfvf=259) 2.78 M/ L 3.93-5.22 HEMOGLOBIN (BEAKER) (test gezh=913) 8.1 GM/DL 11.2-15.7 HEMATOCRIT (BEAKER) (test wolq=189) 24.8 % 34.1-44.9 MEAN CORPUSCULAR VOLUME (BEAKER) (test mmjn=191) 89.2 fL 79.4-94.8 MEAN CORPUSCULAR HEMOGLOBIN (BEAKER) (test 29.1 pg 25.6-32.2 ulvw=275) MEAN CORPUSCULAR HEMOGLOBIN CONC (BEAKER) (test 32.7 GM/DL 32.2-35.5 qlzj=871) RED CELL DISTRIBUTION WIDTH (BEAKER) (test 17.5 % 11.7-14.4 daul=240) PLATELET COUNT (BEAKER) (test bmof=035) 128 K/CU MM 150-450 MEAN PLATELET VOLUME (BEAKER) (test ujvw=236) 10.0 fL 9.4-12.3 NUCLEATED RED BLOOD CELLS (BEAKER) (test 0 /100 WBC 0-0 vcok=583) COMPREHENSIVE METABOLIC [id number] 01:05:00 Test Item Value Reference Range Comments TOTAL PROTEIN (BEAKER) 6.3 gm/dL 6.0-8.3 (test xsyu=621) ALBUMIN (BEAKER) (test 2.7 g/dL 3.5-5.0 ewwb=3329) ALKALINE PHOSPHATASE 574 U/L 40-150 (BEAKER) (test mayf=846) BILIRUBIN TOTAL (BEAKER) 2.1 mg/dL 0.2-1.2 (test rycn=140) SODIUM (BEAKER) (test 135 meq/L 136-145 egxe=189) POTASSIUM (BEAKER) (test 3.5 meq/L 3.5-5.1 xssi=752) CHLORIDE (BEAKER) (test 97 meq/L 98-107 lgoc=054) CO2 (BEAKER) (test 31 meq/L 22-29 cuzz=451) BLOOD UREA NITROGEN 14 mg/dL 7-21 (BEAKER) (test melr=508) CREATININE (BEAKER) (test 1.13 mg/dL 0.57-1.25 qcqb=361) GLUCOSE RANDOM (BEAKER) 178 mg/dL 70-105 (test mhog=990) CALCIUM (BEAKER) (test 8.2 mg/dL 8.4-10.2 mpan=674) AST (SGOT) (BEAKER) (test 74 U/L 5-34 bkok=130) ALT (SGPT) (BEAKER) (test 31 U/L 6-55 jrvn=892) EGFR (BEAKER) (test 52 mL/min/1.73 sq m ESTIMATED GFR IS NOT zoif=7411) ACCURATE CREATININE CLEARANCE IN PREDICTING GLOMERULAR FILTRATION RATE. ESTIMATED GFR IS NOT APPLICABLE FOR DIALYSIS PATIENTS. Head Waiter ID - KENNPROTHROMBIN TIME/[id number] 00:38:00 Test Item Value Reference Range Comments PROTIME (BEAKER) (test jcfx=983) 15.0 seconds 11.9-14.2 INR (BEAKER) (test uwux=161) 1.2 <=5.9 Effective 08/28/2018: PT Reference Range ChangeNew: 11.9-14.2 Previous: 11.7- 14.7RECOMMENDED COUMADIN/WARFARIN INR THERAPY RANGESSTANDARD DOSE: 2.0-3.0 Includes: PROPHYLAXIS for venous thrombosis, systemic embolization; TREATMENT for venous thrombosis and/or pulmonary embolus.HIGH RISK: Target INR is2.5-3.5 for patients wiht mechanical heart valves.CBC W/PLT COUNT & AUTO [id number] 00:16:00 Test Item Value Reference Range Comments WHITE BLOOD CELL COUNT (BEAKER) (test mear=695) 6.0 K/ L 3.5-10.5 RED BLOOD CELL COUNT (BEAKER) (test znie=082) 2.85 M/ L 3.93-5.22 HEMOGLOBIN (BEAKER) (test jraa=148) 8.3 GM/DL 11.2-15.7 HEMATOCRIT (BEAKER) (test ygth=929) 25.4 % 34.1-44.9 MEAN CORPUSCULAR VOLUME (BEAKER) (test scsn=519) 89.1 fL 79.4-94.8 MEAN CORPUSCULAR HEMOGLOBIN (BEAKER) (test 29.1 pg 25.6-32.2 zbvq=117) MEAN CORPUSCULAR HEMOGLOBIN CONC (BEAKER) (test 32.7 GM/DL 32.2-35.5 cgob=281) RED CELL DISTRIBUTION WIDTH (BEAKER) (test 17.3 % 11.7-14.4 zfwv=714) PLATELET COUNT (BEAKER) (test bugf=743) 127 K/CU MM 150-450 MEAN PLATELET VOLUME (BEAKER) (test rgbw=436) 9.7 fL 9.4-12.3 NUCLEATED RED BLOOD CELLS (BEAKER) (test 0 /100 WBC 0-0 orqf=276) NEUTROPHILS RELATIVE PERCENT (BEAKER) (test 71 % zvul=297) LYMPHOCYTES RELATIVE PERCENT (BEAKER) (test 11 % hmyb=252) MONOCYTES RELATIVE PERCENT (BEAKER) (test 14 % pftz=021) EOSINOPHILS RELATIVE PERCENT (BEAKER) (test 3 % bjno=197) BASOPHILS RELATIVE PERCENT (BEAKER) (test 0 % gntt=530) NEUTROPHILS ABSOLUTE COUNT (BEAKER) (test 4.26 K/ L 1.56-6.13 lird=088) LYMPHOCYTES ABSOLUTE COUNT (BEAKER) (test 0.66 K/ L 1.18-3.74 xuvf=204) MONOCYTES ABSOLUTE COUNT (BEAKER) (test 0.86 K/ L 0.24-0.36 mpon=991) EOSINOPHILS ABSOLUTE COUNT (BEAKER) (test 0.18 K/ L 0.04-0.36 flmz=420) BASOPHILS ABSOLUTE COUNT (BEAKER) (test 0.01 K/ L 0.01-0.08 opux=901) IMMATURE GRANULOCYTES-RELATIVE PERCENT (BEAKER) 1 % 0-1 (test utrd=3379) POCT-GLUCOSE [id number] 12:41:00 Test Item Value Reference Range Comments POC-GLUCOSE METER (BEAKER) 323 mg/dL 70-110 : TESTED AT [address] (test phwz=7476) [facility], [address]: Head Waiter/Travel Journalist [id number] for JOE HALL POCT-GLUCOSE [id number] 07:46:00 Test Item Value Reference Range Comments POC-GLUCOSE METER (BEAKER) 387 mg/dL 70-110 : TESTED AT [address] (test yitn=3490) [facility], [address]: Head Waiter/Travel Journalist [id number] for MANUEL ANTHONY POCT-GLUCOSE [id number] 06:30:00 Test Item Value Reference Range Comments POC-GLUCOSE METER (BEAKER) 423 mg/dL 70-110 : Notified RN/MD: TESTED AT (test ajgc=5371) [address], [address]: Head Waiter/Travel Journalist [id number] for MANUEL ANTHONY BASIC METABOLIC [id number] 06:12:00 Test Item Value Reference Range Comments SODIUM (BEAKER) (test 132 meq/L 136-145 cmxq=000) POTASSIUM (BEAKER) (test 4.3 meq/L 3.5-5.1 inse=223) CHLORIDE (BEAKER) (test 99 meq/L 98-107 upol=194) CO2 (BEAKER) (test 24 meq/L 22-29 gueb=349) BLOOD UREA NITROGEN 14 mg/dL 7-21 (BEAKER) (test oxvq=461) CREATININE (BEAKER) (test 1.24 mg/dL 0.57-1.25 yvwk=017) GLUCOSE RANDOM (BEAKER) 443 mg/dL 70-105 (test eewy=982) CALCIUM (BEAKER) (test 7.8 mg/dL 8.4-10.2 kvwe=744) EGFR (BEAKER) (test 47 mL/min/1.73 sq m ESTIMATED GFR IS NOT ezvm=9992) ACCURATE CREATININE CLEARANCE IN PREDICTING GLOMERULAR FILTRATION RATE. ESTIMATED GFR IS NOT APPLICABLE FOR DIALYSIS PATIENTS. Head Waiter ID - FANNIE [id number] 05:46:00 Test Item Value Reference Range Comments MAGNESIUM (BEAKER) (test pxbj=431) 1.7 mg/dL 1.6-2.6 Head Waiter ID - FANNIE WPROTHROMBIN TIME/[id number] 05:07:00 Test Item Value Reference Range Comments PROTIME (BEAKER) (test aypn=997) 17.8 seconds 11.9-14.2 INR (BEAKER) (test rnoc=879) 1.5 <=5.9 Effective 08/28/2018: PT Reference Range ChangeNew: 11.9-14.2 Previous: 11.7- 14.7RECOMMENDED COUMADIN/WARFARIN INR THERAPY RANGESSTANDARD DOSE: 2.0-3.0 Includes: PROPHYLAXIS for venous thrombosis, systemic embolization; TREATMENT for venous thrombosis and/or pulmonary embolus.HIGH RISK: Target INR is2.5-3.5 for patients wiht mechanical heart valves.CBC (HEMOGRAM ONLY)2019-05-12 04:57:00 Test Item Value Reference Range Comments WHITE BLOOD CELL COUNT (BEAKER) (test ixom=194) 5.1 K/ L 3.5-10.5 RED BLOOD CELL COUNT (BEAKER) (test hmwp=719) 2.65 M/ L 3.93-5.22 HEMOGLOBIN (BEAKER) (test xqhy=690) 7.8 GM/DL 11.2-15.7 HEMATOCRIT (BEAKER) (test ztqd=349) 24.0 % 34.1-44.9 MEAN CORPUSCULAR VOLUME (BEAKER) (test pxwo=905) 90.6 fL 79.4-94.8 MEAN CORPUSCULAR HEMOGLOBIN (BEAKER) (test 29.4 pg 25.6-32.2 icav=127) MEAN CORPUSCULAR HEMOGLOBIN CONC (BEAKER) (test 32.5 GM/DL 32.2-35.5 clpv=905) RED CELL DISTRIBUTION WIDTH (BEAKER) (test 17.1 % 11.7-14.4 lpjq=872) PLATELET COUNT (BEAKER) (test pkyp=921) 79 K/CU MM 150-450 MEAN PLATELET VOLUME (BEAKER) (test yaxa=255) 11.7 fL 9.4-12.3 NUCLEATED RED BLOOD CELLS (BEAKER) (test 0 /100 WBC 0-0 jdhv=439) POCT-GLUCOSE [id number] 21:28:00 Test Item Value Reference Range Comments POC-GLUCOSE METER (BEAKER) 361 mg/dL 70-110 : TESTED AT [facility] [address] [place] [address] (test yknm=3867) [facility], [address]: Head Waiter/Travel Journalist [id number] for ANTHONY JACKSON POCT-GLUCOSE [id number] 17:28:00 Test Item Value Reference Range Comments POC-GLUCOSE METER (BEAKER) 147 mg/dL 70-110 : TESTED AT [address] (test mapp=2460) [facility], [address]: Head Waiter/Travel Journalist [id number] for PABLO BOLANOS POCT-GLUCOSE [id number] 15:37:00 Test Item Value Reference Range Comments POC-GLUCOSE METER (BEAKER) 106 mg/dL 70-110 : TESTED AT [address] (test hncj=8910) [facility], [address]: Head Waiter/Travel Journalist [id number] for MICKEY ROBERTSON RAD, PELVIS, 1 OR 2 [id number] 15:25:00Reason for exam:->left hip fractureFINAL REPORT RAD, [...] following left total hip arthroplasty. Signed: Masha Fregosoort Verified Date/Time: 05/11/2019 15 :25:39 03: 25 PMHEMOGLOBIN [id number] 09:14:00 Test Item Value Reference Range Comments HEMOGLOBIN A1C (BEAKER) (test jsjv=097) 5.4 % 4.3-6.1 ALPHA FETOPROTEIN (AFP), TUMOR [id number] 07:59:00 Test Item Value Reference Range Comments ALPHA-FETOPROTEIN (BEAKER) (test mfel=6373) < ng/mL <10.0 Head Waiter ANN MARIE BATES WPROTHROMBIN TIME/[id number] 07:34:00 Test Item Value Reference Range Comments PROTIME (BEAKER) (test dmdl=886) 17.2 seconds 11.9-14.2 INR (BEAKER) (test lvfh=027) 1.5 <=5.9 Effective 08/28/2018: PT Reference Range ChangeNew: 11.9-14.2 Previous: 11.7- 14.7RECOMMENDED COUMADIN/WARFARIN INR THERAPY RANGESSTANDARD DOSE: 2.0-3.0 Includes: PROPHYLAXIS for venous thrombosis, systemic embolization; TREATMENT for venous thrombosis and/or pulmonary embolus.HIGH RISK: Target INR is2.5-3.5 for patients wiht mechanical heart valves.[id number] 06:59:00 Test Item Value Reference Range Comments MAGNESIUM (BEAKER) (test 1.8 mg/dL 1.6-2.6 Specimen slightly hemolyzed nzad=832) Head Waiter ANN MARIE BATES WBASIC METABOLIC [id number] 06:59:00 Test Item Value Reference Range Comments SODIUM (BEAKER) (test 136 meq/L 136-145 yxiq=776) POTASSIUM (BEAKER) (test 3.9 meq/L 3.5-5.1 Specimen slightly infl=729) hemolyzed CHLORIDE (BEAKER) (test 100 meq/L 98-107 tjbb=431) CO2 (BEAKER) (test 29 meq/L 22-29 grcg=372) BLOOD UREA NITROGEN 12 mg/dL 7-21 (BEAKER) (test liyl=214) CREATININE (BEAKER) (test 1.19 mg/dL 0.57-1.25 Specimen slightly nczo=095) hemolyzed GLUCOSE RANDOM (BEAKER) 134 mg/dL 70-105 (test mhwr=410) CALCIUM (BEAKER) (test 8.2 mg/dL 8.4-10.2 snjm=708) EGFR (BEAKER) (test 49 mL/min/1.73 sq m ESTIMATED GFR IS NOT rwif=0732) ACCURATE CREATININE CLEARANCE IN PREDICTING GLOMERULAR FILTRATION RATE. ESTIMATED GFR IS NOT APPLICABLE FOR DIALYSIS PATIENTS. Head Waiter ID - PAULO WCBC (HEMOGRAM ONLY)2019-05-11 06:48:00 Test Item Value Reference Range Comments WHITE BLOOD CELL COUNT (BEAKER) (test runa=883) 6.1 K/ L 3.5-10.5 RED BLOOD CELL COUNT (BEAKER) (test luom=940) 2.88 M/ L 3.93-5.22 HEMOGLOBIN (BEAKER) (test qpcl=353) 8.5 GM/DL 11.2-15.7 HEMATOCRIT (BEAKER) (test frsm=941) 26.5 % 34.1-44.9 MEAN CORPUSCULAR VOLUME (BEAKER) (test gubj=383) 92.0 fL 79.4-94.8 MEAN CORPUSCULAR HEMOGLOBIN (BEAKER) (test 29.5 pg 25.6-32.2 wica=707) MEAN CORPUSCULAR HEMOGLOBIN CONC (BEAKER) (test 32.1 GM/DL 32.2-35.5 eknc=822) RED CELL DISTRIBUTION WIDTH (BEAKER) (test 18.2 % 11.7-14.4 zwkt=015) PLATELET COUNT (BEAKER) (test fufa=739) 81 K/CU MM 150-450 MEAN PLATELET VOLUME (BEAKER) (test crhv=476) 11.6 fL 9.4-12.3 NUCLEATED RED BLOOD CELLS (BEAKER) (test 0 /100 WBC 0-0 mnhv=588) POCT-GLUCOSE [id number] 05:55:00 Test Item Value Reference Range Comments POC-GLUCOSE METER (BEAKER) 135 mg/dL 70-110 : TESTED AT [address] (test jjbk=0196) [facility], [address]: Head Waiter/Travel Journalist [id number] for DIANN MARTINEZ POCT-GLUCOSE [id number] 22:15:00 Test Item Value Reference Range Comments POC-GLUCOSE METER (BEAKER) 202 mg/dL 70-110 : TESTED AT [place] [id number] (test vpqy=2465) [facility], [address]: Head Waiter/Travel Journalist [id number] for Patrizia Pitt POCT-GLUCOSE [id number] 20:53:00 Test Item Value Reference Range Comments POC-GLUCOSE METER (BEAKER) 207 mg/dL 70-110 : TESTED AT [facility] [address] (test eyvd=8045) [facility], [address]: Head Waiter/Travel Journalist [id number] for DIANN MARTINEZ POCT-GLUCOSE [id number] 17:47:00 Test Item Value Reference Range Comments POC-GLUCOSE METER (BEAKER) 163 mg/dL 70-110 : TESTED AT [facility] [address] (test zlrp=6674) [facility], [address]: Head Waiter/Travel Journalist [id number] for PABLO BOLANOS POCT-GLUCOSE [id number] 15:39:00 Test Item Value Reference Range Comments POC-GLUCOSE METER (BEAKER) 152 mg/dL 70-110 : TESTED AT [facility] [address] [place] [address] (test lwtl=4808) [facility], [address]: Head Waiter/Travel Journalist [id number] for PABLO BOLANOS RAD, FEMUR, MIN. 2 VIEWS, [id number] 14:43:00Reason for exam:->hip fxShould this be performed at the bedside?->YesFINAL REPORT TECHNIQUE: Seven views of left femur HISTORY: hip fx. COMPARISON: Radiograph seven hours prior. IMPRESSION:Again seen is the minimally displaced left femoral neck fracture. There is been some interval increased displacement.No additional acute displaced fracture. Signed: Elroy Villegas MDReport Verified Date/Time: 05/10/2019 14:43:01 Reading Location: [address] Consult Reading Room HEMOGLOBIN [id number] 13:09:00 Test Item Value Reference Range Comments HEMOGLOBIN A1C (BEAKER) (test wcma=279) 4.9 % 4.3-6.1 RAD, PELVIS, 1 OR 2 [id number] 05:46:00Reason for exam:->hip painShould this be performed [...] Maloney Verified Date/Time: 05/10/2019 05:46:55 Electronically signedby: MARYC ARMEN MALONEY MD on 05/10/2019 05:46 AMRAD, HIP , 2 VIEWS, [id number] 05:46:00Reason for exam:->femur fxShould this be performed [...] CARMEN MALONEY MD on 05/10/2019 05:46 AMPOCT-GLUCOSE [id number] 04:50:00 Test Item Value Reference Range Comments POC-GLUCOSE METER (ARMANDO) 132 mg/dL 70-110 : TESTED AT [facility] [address] [place] [address] (test xqkc=3502) [facility], [address]: Head Waiter/Travel Journalist [id number] for ANDRESSA CHANEL TROPONIN [id number] 03:49:00 Test Item Value Reference Range Comments TROPONIN I ([employer] IncGENNARO) (test fsdh=284) < ng/mL 0.00-0.03 Troponin I (TnI) levels [...] failure, acidosis, acute neurological disease, and persistent tachyarrhythmia.Head Waiter ID - PIAYA LCOMPREHENSIVE METABOLIC [id number] 03:46:00 Test Item Value Reference Range Comments TOTAL PROTEIN (BEAKER) 6.1 gm/dL 6.0-8.3 (test icdn=156) ALBUMIN (BEAKER) (test 2.5 g/dL 3.5-5.0 yyez=2170) ALKALINE PHOSPHATASE 256 U/L 40-150 (BEAKER) (test haln=067) BILIRUBIN TOTAL (BEAKER) 0.8 mg/dL 0.2-1.2 (test toff=382) SODIUM (BEAKER) (test 135 meq/L 136-145 tmuz=879) POTASSIUM (BEAKER) (test 3.8 meq/L 3.5-5.1 hpgc=151) CHLORIDE (BEAKER) (test 100 meq/L 98-107 teus=114) CO2 (BEAKER) (test 30 meq/L 22-29 bjen=058) BLOOD UREA NITROGEN 12 mg/dL 7-21 (BEAKER) (test mjno=985) CREATININE (BEAKER) (test 1.13 mg/dL 0.57-1.25 vnff=905) GLUCOSE RANDOM (BEAKER) 173 mg/dL 70-105 (test owqx=942) CALCIUM (BEAKER) (test 7.8 mg/dL 8.4-10.2 baje=717) AST (SGOT) (BEAKER) (test 36 U/L 5-34 hvjq=103) ALT (SGPT) (BEAKER) (test 18 U/L 6-55 tcso=449) EGFR (BEAKER) (test 52 mL/min/1.73 sq m ESTIMATED GFR IS NOT cipn=4039) ACCURATE CREATININE CLEARANCE IN PREDICTING GLOMERULAR FILTRATION RATE. ESTIMATED GFR IS NOT APPLICABLE FOR DIALYSIS PATIENTS. Head Waiter ID - PIAYA LPROTHROMBIN TIME/[id number] 02:59:00 Test Item Value Reference Range Comments PROTIME (BEAKER) (test vsyh=434) 16.9 seconds 11.9-14.2 INR (BEAKER) (test oppd=071) 1.4 <=5.9 Effective 08/28/2018: PT Reference Range ChangeNew: 11.9-14.2 Previous: 11.7- 14.7RECOMMENDED COUMADIN/WARFARIN INR THERAPY RANGESSTANDARD DOSE: 2.0-3.0 Includes: PROPHYLAXIS for venous thrombosis, systemic embolization; TREATMENT for venous thrombosis and/or pulmonary embolus.HIGH RISK: Target INR is2.5-3.5 for patients wiht mechanical heart valves.CBC W/PLT COUNT & AUTO [id number] 02:46:00 Test Item Value Reference Range Comments WHITE BLOOD CELL COUNT (BEAKER) (test bsyv=354) 7.6 K/ L 3.5-10.5 RED BLOOD CELL COUNT (BEAKER) (test ymmh=299) 3.15 M/ L 3.93-5.22 HEMOGLOBIN (BEAKER) (test ipfm=998) 9.2 GM/DL 11.2-15.7 HEMATOCRIT (BEAKER) (test flwu=500) 28.8 % 34.1-44.9 MEAN CORPUSCULAR VOLUME (BEAKER) (test noff=340) 91.4 fL 79.4-94.8 MEAN CORPUSCULAR HEMOGLOBIN (BEAKER) (test 29.2 pg 25.6-32.2 mmmt=561) MEAN CORPUSCULAR HEMOGLOBIN CONC (BEAKER) (test 31.9 GM/DL 32.2-35.5 adxe=995) RED CELL DISTRIBUTION WIDTH (BEAKER) (test 18.4 % 11.7-14.4 pdkk=156) PLATELET COUNT (BEAKER) (test mozj=196) 81 K/CU MM 150-450 MEAN PLATELET VOLUME (BEAKER) (test rmca=271) 11.7 fL 9.4-12.3 NUCLEATED RED BLOOD CELLS (BEAKER) (test 0 /100 WBC 0-0 qmdt=175) NEUTROPHILS RELATIVE PERCENT (BEAKER) (test 73 % acog=990) LYMPHOCYTES RELATIVE PERCENT (BEAKER) (test 11 % swgd=627) MONOCYTES RELATIVE PERCENT (BEAKER) (test 9 % ujrq=898) EOSINOPHILS RELATIVE PERCENT (BEAKER) (test 6 % gqih=914) BASOPHILS RELATIVE PERCENT (BEAKER) (test 0 % acls=198) NEUTROPHILS ABSOLUTE COUNT (BEAKER) (test 5.57 K/ L 1.56-6.13 barj=746) LYMPHOCYTES ABSOLUTE COUNT (BEAKER) (test 0.85 K/ L 1.18-3.74 ghoy=170) MONOCYTES ABSOLUTE COUNT (BEAKER) (test gcxg=284) 0.71 K/ L 0.24-0.36 EOSINOPHILS ABSOLUTE COUNT (BEAKER) (test 0.47 K/ L 0.04-0.36 azqe=973) BASOPHILS ABSOLUTE COUNT (BEAKER) (test gznr=952) 0.02 K/ L 0.01-0.08 IMMATURE GRANULOCYTES-RELATIVE PERCENT (BEAKER) 0 % 0-1 (test vfrq=4256)
--- OUTSIDE RECORDS SUMMARY | 2019-06-12 02:23 | XMS REPORT | Summary of Care ---
:1975 Author Organization [facility] Address [address] [place] [id number] Care Team Providers Name Role Phone Petra Huff Primary Care Provider Reason for Referral MRI/CAT Scan (Routine) Status Reason Specialty Diagnoses / Referred By Referred To Procedures Contact Contact New Request Diagnostic Diagnoses H/O ankle fusion Panchbhavi, Radiology Procedures CT ANKLE RIGHT WO CONTRAST MD Ric [address] [place] [address] (Routine) Status Reason Specialty Diagnoses / Referred By Referred To Procedures Contact Contact New Request Diagnoses Acute pain of right knee Ric Sal, David Paalcio, Procedures CONSULT/REFERRAL ORTHOPAEDIC SURGERY CONSULT/REFERRAL ORTHOPAEDIC SURGERY MD GRADY [address] [place] [address] Phone: [phone] Phone: Radiology Services (Routine) Status Reason Specialty Diagnoses / Referred By Referred To Procedures Contact Contact New Request Diagnostic Diagnoses Pain Panchbhavi, Radiology Procedures XR ANKLE 3+ VW RIGHT MD Ric [address] [place] [address] Reason for Visit Reason Comments Foot Pain right Other (Routine) Status Reason Specialty Diagnoses / Referred By Referred To Procedures Contact Contact Closed Orthopedic Surgery Diagnoses Charcot's joint of foot, right Panchbhavi, Panchbhavi, Procedures Discharge Follow-up: Specialty Provider RIC SAL; 2 Weeks MD Ric Larios MD [address], [place] [phone] Phone: Encounter Details Date Type Department Care Team Description 05/01/2019 Office Visit [facility] Orthopaedic Panchbhavi, H/O ankle fusion (Primary Dx); Surgery- Adan Larios MD Pain; [facility] [address] Acute pain of right knee [address], [place], [place] [address] [address] [place] [address] [phone] Allergies Active Allergy Reactions Severity Noted Date Comments Penicillins Itching, Nausea and/or Vomiting 05/09/2013 documented as of this encounter (statuses as of 05/01/2019) Medications Medication Sig Dispensed Refills Start Date [...] and Vomiting (N/V). fluticasone propionate Use 1 Dahinda in 16 g 0 04/18/2019 Active 50 [...] as of this encounter (statuses as of 05/01/2019) Active Problems Problem Noted Date Anemia 04/09/2019 Decompensated hepatic cirrhosis 04/09/2019 Esophageal varices determined by endoscopy 10/23/2018 Overview: Added automatically from request for surgery [id number] Diabetic neuropathy associated with type 2 diabetes mellitus 10/11/2018 Charcot's joint of ankle, right 10/11/2018 Charcot's joint of foot, right 10/11/2018 Fracture dislocation of ankle, right, closed, initial encounter 10/11/2018 Bleeding esophageal varices, unspecified esophageal varices type 10/10/2018 Overview: Added automatically from request for surgery [id number] Melena 09/28/2018 Hypotension due to hypovolemia 09/28/2018 GIB (gastrointestinal bleeding) 09/28/2018 Tibia/fibula fracture 09/22/2018 Pain pelvic 05/25/2013 Cirrhosis 05/25/2013 Abnormal menses 05/25/2013 UTI (urinary tract infection) 05/12/2013 Overview: Ok per Dr. Chaudhari to give Keflex 500mg BID x 7 days Encounter for routine gynecological examination 05/09/2013 Overview: ICD10 Diagnosis Term Dyeing Machine Back Tender Utility Type 2 diabetes mellitus without complications 05/09/2013 Overview: ICD10 Diagnosis Term Dyeing Machine Back Tender Utility Other and unspecified ovarian cyst 05/09/2013 Overview: Medical records from [facility] on 04/02/2013. Transvaginal USG. Impression: [...] as of this encounter (statuses as of 05/01/2019) Resolved Problems Problem Noted Date Resolved Date Other abnormal Papanicolaou smear of cervix and cervical 01/30/20082013 HPV(795.09) Contraceptive management 01/30/2008 05/09/2013 Overview: ICD10 Diagnosis Term Dyeing Machine Back Tender Utility delivery delivered 01/25/2008 05/09/2013 Overview: ICD10 Diagnosis Term Dyeing Machine Back Tender Utility Diabetes mellitus during , antepartum 11/05/2007 05/09/2013 Overview: ICD10 Diagnosis Term Dyeing Machine Back Tender Utility Other ill-defined heart disease 05/09/2013 Need for prophylactic vaccination with tetanus toxoid alone 05/09/2013 Other specified and placental problems affecting management of 2013 mother, antepartum Papanicolaou smear of cervix with low grade squamous intraepithelial 2013 lesion (LGSIL) Tubal ligation status 05/09/2013 documented as of this encounter (statuses as of 05/01/2019) Immunizations Name Administration Dates Next Due Influenza [...] Sign Reading Time Taken Comments Blood Pressure - - Pulse - - Temperature - - Respiratory Rate - - Oxygen Saturation - - Inhaled Oxygen Concentration - - Weight 73.9 kg (163 lb) 05/01/2019 2:29 PM SHELVING SUPERVISOR Height - - Body Mass Index 26.31 04/11/2019 10:43 PM SHELVING SUPERVISOR documented in this encounter Progress Notes Faustino Barclay MD - 05/01/2019 1:50 PM CST Orthopaedic Post Op Visit Rosanna York SUBJECTIVE: Rosanna York is a 43 year old /White female that is s/p TTC nail on the right Post op week/DOS: 12/03/2018 Post op course: She is doing well. No complaints today. Complaint with weight bearing restrictions Interval hx, 12/26/2018 Doing well with no complaints at this time. Interval Hx, 01/09/2019 Pt returns to clinic. States she is feeling well. She was supposed to come to clinic this upcoming week. She complains of mild pain. Interval hx, 05/01/2019: Rosanna York is a 43 year old female here today for follow up. She has some pain in her knee. She has been having problems with her pain in her knee. She has a jenny in the knee. OBJECTIVE: Physical exam Incisions well healed Skin without lesions or sores Foot WWP SILT Relevant laboratory values and imaging has been reviewed ASSESSMENT AND PLAN Rosanna York is a 43 year old /White female is s/p procedures listed above with routine post operative course without post operative significant complications Plan - referral to [facility] for knee pain, hx or femur fracture - RTC in [address] scan - WBAT with total contact insert, rocker bottom diabetic shoes - CT scan in 3 months - follow up per study protocol documented in this encounter Plan of Treatment Name Type Priority Associated Diagnoses Date/Time XR ANKLE 3+ VW RIGHT IMAGING Routine Pain 05/01/2019 2:11 PM SHELVING SUPERVISOR Name Type Priority Associated Diagnoses Order Schedule CT ANKLE RIGHT WO IMAGING Routine H/O ankle fusion Expected: 07/31/2019, CONTRAST Expires: 08/30/2019 Health Maintenance Due Date Last Done Comments [...] of this encounter Implants Implanted Type Area Apprentice Cook Device Shelf Model / Identifier Expiration Serial / Date Lot Implant Orthopedic Endcap NAIL Right: [employer] 10/30/2021 1200-04- 0000 / Implanted: Qty: 2 on 12/03/2018 by Ric Sal MD at [facility] NA / [id number] Nail Intramedullary 10mm Elle 22cml NAIL Right: [employer] 07/30/[id number] / Implanted: Qty: 1 on 12/03/2018 by Ric Sal MD at [facility] NA / [id number] Screw Bone Compression 5mm Elle 85mml SCREW Right: [employer] 2020-03-5085 / Implanted: Qty: 1 on 12/03/2018 by Ric Sal MD at [facility] NA / [id number] Screw Bone Compression 5mm Elle 30mml SCREW Right: [employer] 2020-02-5030 / Implanted: Qty: 1 on 12/03/2018 by Ric Sal MD at [facility] NA / [id number] Screw Bone Compression 5mm Elle 30mml SCREW Right: [employer] 2020-02-5030 / Implanted: Qty: 1 on 12/03/2018 by Ric Sal MD at [facility] NA / [id number] Rode Right: Leg Screw-03/08/2018 Right: Implanted: 03/08/2018 (Quantity not on file) Knee Foam Pack, [employer] 10cc #[id number] - Sna Right: [employer] 05/30/2020 / Implanted: Qty: 1 on 12/03/2018 by Ric Sal MD at [facility] NA / [id number] documented as of this encounter Results Not on filedocumented in this encounter Visit Diagnoses Diagnosis H/O ankle fusion - Primary Other postprocedural status Pain Generalized pain Acute pain of right knee documented in this encounter
[2019-06-12] MEDS ORDERED: FAMOTIDINE 20 MG/2 ML VIAL IV ONE (02:24)
[2019-06-12] MEDS ORDERED: NA CHLORIDE 0.9% 500 ML ONE (02:24)
--- OUTSIDE RECORDS SUMMARY | 2019-06-12 02:24 | XMS REPORT | Summary of Care ---
:1975 Author Organization [facility] Address [address] [place] [id number] Care Team Providers Name Role Phone Petra Huff Primary Care Provider Reason for Referral MRI/CAT Scan (Routine) Status Reason Specialty Diagnoses / Referred By Referred To Procedures Contact Contact New Request Diagnostic Diagnoses H/O ankle fusion Panchbhavi, Radiology Procedures CT ANKLE RIGHT WO CONTRAST MD Ric [address] [place] [address] (Routine) Status Reason Specialty Diagnoses / Referred By Referred To Procedures Contact Contact New Request Diagnoses Acute pain of right knee Ric Sal, David Palacio, Procedures CONSULT/REFERRAL ORTHOPAEDIC SURGERY CONSULT/REFERRAL ORTHOPAEDIC SURGERY MD GRADY [address] [place] [address] Phone: [phone] Phone: Radiology Services (Routine) Status Reason Specialty Diagnoses / Referred By Referred To Procedures Contact Contact New Request Diagnostic Diagnoses Pain Panchbhavi, Radiology Procedures XR ANKLE 3+ VW RIGHT MD Ric [address] [place] [address] Reason for Visit Reason Comments Foot Pain right Other (Routine) Status Reason Specialty Diagnoses / Referred By Referred To Procedures Contact Contact Closed Orthopedic Surgery Diagnoses Charcot's joint of foot, right Panchbhavi, Panchbhavi, Procedures Discharge Follow-up: Specialty Provider RIC SAL; 2 Weeks MD Ric Larios MD [address] [place], [place] [address] Phone: Encounter Details Date Type Department Care Team Description 05/01/2019 Office Visit [facility] Orthopaedic Panchbhavi, H/O ankle fusion (Primary Dx); Surgery- Adan Larios MD Pain; [facility] [address] Acute pain of right knee [address], [place], [place] [address] [address] [place] [address] [phone] Allergies Active Allergy Reactions Severity Noted Date [...] and Vomiting (N/V). fluticasone propionate Use 1 [place] in 16 g 0 04/18/2019 Active 50 [...] Overview: Added automatically from request for surgery [id number] Diabetic neuropathy associated with type 2 diabetes mellitus 10/11/2018 Charcot's joint of ankle, right 10/11/2018 Charcot's joint of foot, right 10/11/2018 Fracture dislocation of ankle, right, closed, initial encounter 10/11/2018 Bleeding esophageal varices, unspecified esophageal varices type 10/10/2018 Overview: Added automatically from request for surgery [id number] Melena 09/28/2018 Hypotension due to hypovolemia 09/28/2018 GIB (gastrointestinal bleeding) 09/28/2018 Tibia/fibula fracture 09/22/2018 Pain pelvic 05/25/2013 Cirrhosis 05/25/2013 Abnormal menses 05/25/2013 UTI (urinary tract infection) 05/12/2013 Overview: Ok per Dr. Chaudhari to give Keflex 500mg BID x 7 days Encounter for routine gynecological examination 05/09/2013 Overview: ICD10 Diagnosis Term Refrigeration Mechanic Utility Type 2 diabetes mellitus without complications 05/09/2013 Overview: ICD10 Diagnosis Term Refrigeration Mechanic Utility Other and unspecified ovarian cyst 05/09/2013 Overview: Medical records from [facility] on 04/02/2013. Transvaginal USG. 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 10/30/2021 1200-04- 0000 / Implanted: Qty: 2 on 12/03/2018 by Ric Sal MD at [facility] AT [facility] NA / [id number] Nail Intramedullary 10mm Elle 22cml NAIL Right: [employer] 07/30/[id number] / Implanted: Qty: 1 on 12/03/2018 by Ric Sal MD at [facility] AT [facility] NA / [id number] Screw Bone Compression 5mm Elle 85mml SCREW Right: [employer] 2020-03-5085 / Implanted: Qty: 1 on 12/03/2018 by Ric Sal MD at [facility] AT [facility] NA / [id number] Screw Bone Compression 5mm Elle 30mml SCREW Right: [employer] 2020-02-5030 / Implanted: Qty: 1 on 12/03/2018 by Ric Sal MD at [facility] AT [facility] NA / [id number] Screw Bone Compression 5mm Elle 30mml SCREW Right: [employer] 2020-02-5030 / Implanted: Qty: 1 on 12/03/2018 by Ric Sal MD at [facility] AT [facility] NA / [id number] Rode Right: Leg Screw-03/08/2018 Right: Implanted: 03/08/2018 (Quantity not on file) Knee Foam Pack, [place] Vitoss Bb Trauma 10cc #[id number] - Sna Right: [place] 05/30/2020 / Implanted: Qty: 1 on 12/03/2018 by Ric Sal MD at [facility] AT [facility] NA / [id number] documented as of this encounter Results Not on filedocumented in this encounter Visit Diagnoses Diagnosis H/O ankle fusion - Primary Other postprocedural status Pain Generalized pain Acute pain of right knee documented in this encounter
--- OUTSIDE RECORDS SUMMARY | 2019-06-12 02:24 | XMS REPORT | Summary of Care ---
:1975 Author Organization [facility] Address [address] [place] [id number] Care Team Providers Name Role Phone Petra Huff Primary Care Provider Reason for Visit Reason Comments Referral/consult [facility] referral Encounter Details Date Type Department Care Team Description 05/21/2019 Patient Outreach [facility] Shagufta Thakur RN Referral/consult [address] ([facility] referral) [place], [place] [address] Allergies Active Allergy Reactions Severity Noted Date Comments Penicillins Itching, Nausea and/or Vomiting 05/09/2013 documented as of this encounter (statuses as of 05/21/2019) Medications Medication Sig Dispensed Refills Start Date [...] site Vomiting (N/V). fluticasone propionate Use 1 [place] in 16 g 0 04/18/2019 Active 50 [...] as of this encounter (statuses as of 05/21/2019) Active Problems Problem Noted Date Anemia 04/09/2019 Decompensated hepatic cirrhosis 04/09/2019 Esophageal varices determined by endoscopy 10/23/2018 Overview: Added automatically from request for surgery [id number] Diabetic neuropathy associated with type 2 diabetes mellitus 10/11/2018 Charcot's joint of ankle, right 10/11/2018 Charcot's joint of foot, right 10/11/2018 Fracture dislocation of ankle, right, closed, initial encounter 10/11/2018 Bleeding esophageal varices, unspecified esophageal varices type 10/10/2018 Overview: Added automatically from request for surgery [id number] Melena 09/28/2018 Hypotension due to hypovolemia 09/28/2018 GIB (gastrointestinal bleeding) 09/28/2018 Tibia/fibula fracture 09/22/2018 Pain pelvic 05/25/2013 Cirrhosis 05/25/2013 Abnormal menses 05/25/2013 UTI (urinary tract infection) 05/12/2013 Overview: Ok per Dr. Chaudhari to give Keflex 500mg BID x 7 days Encounter for routine gynecological examination 05/09/2013 Overview: ICD10 Diagnosis Term Director Of Income Tax Utility Type 2 diabetes mellitus without complications 05/09/2013 Overview: ICD10 Diagnosis Term Director Of Income Tax Utility Other and unspecified ovarian cyst 05/09/2013 Overview: Medical records from [facility] on 04/02/2013. Transvaginal USG. Impression: 4.2cm [...] as of this encounter (statuses as of 05/21/2019) Resolved Problems Problem Noted Date Resolved Date Other abnormal Papanicolaou smear of cervix and cervical 01/30/20082013 HPV(795.09) Contraceptive management 01/30/2008 05/09/2013 Overview: ICD10 Diagnosis Term Director Of Income Tax Utility delivery delivered 01/25/2008 05/09/2013 Overview: ICD10 Diagnosis Term Director Of Income Tax Utility Diabetes mellitus during , antepartum 11/05/2007 05/09/2013 Overview: ICD10 Diagnosis Term Director Of Income Tax Utility Other ill-defined heart disease 05/09/2013 Need for prophylactic vaccination with tetanus toxoid alone 05/09/2013 Other specified and placental problems affecting management of 2013 mother, antepartum Papanicolaou smear of cervix with low grade squamous intraepithelial 2013 lesion (LGSIL) Tubal ligation status 05/09/2013 documented as of this encounter (statuses as of 05/21/2019) Immunizations Name Administration Dates Next Due Influenza [...] Signs Not on filedocumented in this encounter Progress Notes Shagufta Thakur RN - 05/21/2019 1:05 PM CSTCHP referral for DM management: [facility] spoke with the patient re: [facility] enrollment. She is interested; however at this time she is admitted into [facility] d/t patient breaking her hip. The patient had some complications and will be staying in the hospital longer than expected. The patient will call [facility] once she has been discharged home. SLAVA Luis, RN, [facility] Outpatient Parts CoordinatorQuality Improvement SpecialistCone Health O: [phone] M: [phone] documented in this encounter Plan of Treatment Date Type Specialty Care Team Description 06/11/2019 Office Visit Orthopedic Surgery David Palacio MD [address] [place] [address] [phone] Health Maintenance Due Date Last Done Comments [...] of this encounter Implants Implanted Type Area First Aid Nurse Device Shelf Model / Identifier Expiration Serial / Date Lot Six Shooter Farhat Multi-Band Ligater Band [facility] 06/13/2019 MBL-6 -F / Implanted: Qty: 3 on 05/03/2019 by Mya Holliday MD at [facility] 0 / [id number] Implant Orthopedic Endcap NAIL Right: [employer] 10/30/20211199-04- 0000 / Implanted: Qty: 2 on 12/03/2018 by Ric Sal MD at [facility] NA / [id number] Nail Intramedullary 10mm Elle 22cml NAIL Right: [employer] 07/30/[id number] / Implanted: Qty: 1 on 12/03/2018 by Ric Sal MD at [facility] NA / [id number] Screw Bone Compression 5mm Elle 85mml SCREW Right: [employer] 2020-03-5085 / Implanted: Qty: 1 on 12/03/2018 by Ric Sal MD at [facility] NA / [id number] Screw Bone Compression 5mm Elle 30mml SCREW Right: [employer]. 2020-02-5030 / Implanted: Qty: 1 on 12/03/2018 by Ric Sal MD at [facility] AT [facility] NA / [id number] Screw Bone Compression 5mm Elle 30mml SCREW Right: [employer]. 2020 / Implanted: Qty: 1 on 12/03/2018 by Ric Sal MD at [facility] AT [facility] NA / [id number] Rode Right: Leg Screw-03/08/2018 Right: Implanted: 03/08/2018 (Quantity not on file) Knee Foam Pack, Sheba Vitoss Bb Trauma 10cc #[id number] - Sna Right: [place] 05/30/2020 / Implanted: Qty: 1 on 12/03/2018 by Ric Sal MD at [facility] AT [facility] NA / [id number] documented as of this encounter Results Not on filedocumented in this encounter Insurance Payer Benefit Plan / Subscriber ID Effective Phone Address Type Group Dates MEDICAID MEDICAID SSI PENDING 2019-[address] Pending [place] [address] documented as of this encounter
[2019-06-12] MEDS ORDERED: ONDANSETRON 4 MG/2 ML VIAL ONE ×3 (02:26→11:14)
[2019-06-12] MEDS ORDERED: MORPHINE 2 MG/ML SYR ONE (03:15)
[2019-06-12 03:28] LABS: Absolute Lymphocytes (CBC) 0.8 K/uL (0.7-4.9); Basophils % 0.4 % (0-1.3); Hematocrit 32.5 % (36.0-45.0); Lymphocytes % 10.7 % (15.3-44.8); MPV 9.3 fL (7.6-11.3); RBC Red Blood Cell Count 3.71 M/uL (3.86-4.86)
[2019-06-12 03:43] LABS: Albumin 3.2 g/dL (3.4-5.0); Bilirubin Direct 0.5 mg/dL (0-0.2); Bilirubin Total 1.1 mg/dL (0.2-1.0); Potassium 4.4 mmol/L (3.5-5.1); Protein, Total 9.5 g/dL (6.4-8.2)
[2019-06-12] MEDS ORDERED: PROMETHAZINE INJ 25 MG/ML AMP ONE (04:27)
--- NOTE | 2019-06-12 04:48 | ER ---
Nurse's Notes [facility] Name: Rosanna York Age: 43 yrs Sex: Female : 1975 Arrival Date: 06/12/2019 Time: 02:03 Bed 6 Private MD: Diagnosis: Unspecified cirrhosis of liver;Type 1 diabetes mellitus;Vomiting;Volume depletion;Weakness;Unspecified kidney failure Presentation: 06/11 02:05 Chief complaint: Patient states: shes had nausea and vomiting for 2 days. Vitals per EMS 160/83, 75, 98%, and RR 16. Coronavirus screen: The patient has NOT traveled to a country currently being monitored by the [facility] within the last 14 days. The patient has NOT had contact with any known and/or suspected case of coronavirus. Ebola Screen: No symptoms or risks identified at this time. 02:05 Method Of Arrival: EMS: [facility] 02:05 Initial Sepsis Screen: Does the patient meet any 2 criteria? No. Patient's initial sepsis screen is negative. Does the patient have a suspected source of infection? No. Patient's initial sepsis screen is negative. Risk Assessment: Do you want to hurt yourself or someone else? Patient reports no desire to harm self or others. 02:08 Acuity: BRYAN 3 Historical: - Allergies: 02:28 PENICILLINS (Upset stomach); - Home Meds: 02:28 Prozac Oral [Active]; Spironolactone Oral [Active]; Furosemide Oral [Active]; Hydrocodone-Acetaminophen 5/500 Oral [Active]; aspirin 325 mg Oral tab [Active]; insulin [Active]; - PMHx: 02:28 Cirrhosis; Diabetes - IDDM; Heart Murmur; Herniated disc; Hypertension; neuropathy; Pancreatitis; - Immunization history:: Flu vaccine is up to date. - Social history:: Smoking status: Patient denies any tobacco usage or history of. Assessment: 02:10 General: Appears in no apparent distress. uncomfortable, Behavior is calm, cooperative, jb4 appropriate for age. Pain: Complains of pain in back and abdomen Pain does not radiate. Pain currently is 8 out of 10 on a pain scale. Neuro: Level of Consciousness is awake, alert, obeys commands, Oriented to person, place, time, situation. Cardiovascular: Patient's skin is warm and dry. Respiratory: Airway is patent Respiratory effort is even, unlabored, Respiratory pattern is regular, symmetrical. GI: Reports lower abdominal pain, upper abdominal pain, nausea. : No signs and/or symptoms were reported regarding the genitourinary system. EENT: No signs and/or symptoms were reported regarding the EENT system. Derm: Skin is intact, Skin is pink, warm \T\ dry. Musculoskeletal: Circulation, motion, and sensation intact. Range of motion: intact in all extremities. 03:00 Reassessment: Patient appears in no apparent distress at this time. Patient and/or jb4 family updated on plan of care and expected duration. Pain level reassessed. Patient is alert, oriented x 3, equal unlabored respirations, skin warm/dry/pink. 03:43 Reassessment: Patient appears in no apparent distress at this time. Patient and/or jb4 family updated on plan of care and expected duration. Pain level reassessed. Patient is alert, oriented x 3, equal unlabored respirations, skin warm/dry/pink. Pt reports a decrease in pain. 06:04 Reassessment: Patient appears in no apparent distress at this time. Patient and/or jb4 family updated on plan of care and expected duration. Pain level reassessed. Pt is resting comfortably in bed with no s/s of distress or pain noted. Respirations are even and unlabored. 07:00 Reassessment: Patient appears in no apparent distress at this time. Patient and/or jb4 family updated on plan of care and expected duration. Pain level reassessed. Patient is alert, oriented x 3, equal unlabored respirations, skin warm/dry/pink. Pt reports an increase in nausea. Provider notified. No new orders at this time. 08:00 Reassessment: Patient and/or family updated on plan of care and expected duration. Pain jb4 level reassessed. Pt is resting in bed with eyes closed. Respirations are even and unlabored. No s/s of pain or distress noted. Vital Signs: 02:05 BP 172 / 97; Pulse 68; Resp 16; Temp 98.1; Pulse Ox 100% ; Weight 65.77 kg; Height 5 ah ft. 5 in. (165.10 cm); 02:05 BP 172 / 97; Pulse 68; Resp 16; Temp 98.1; Pulse Ox 100% ; 03:00 BP 113 / 65; Pulse 59; Resp 16; Pulse Ox 100% on R/A; jb4 04:00 BP 166 / 91; Pulse 65; Resp 16; Pulse Ox 100% on R/A; jb4 05:00 BP 135 / 78; Pulse 80; Resp 16; Pulse Ox 100% on R/A; jb4 06:00 BP 134 / 75; Pulse 70; Resp 16; Pulse Ox 100% ; jb4 07:30 BP 114 / 88; Pulse 66; Resp 16; Pulse Ox 100% on R/A; jb4 08:30 BP 109 / 75; Pulse 67; Resp 16; Temp 97.7(TE); Pulse Ox 100% on R/A; jb4 02:05 Body Mass Index 24.13 (65.77 kg, 165.10 cm) ED Course: 02:03 Patient arrived in ED. ds1 02:06 Abner South PA is PHCP. cp 02:06 Abner Westbrook MD is Attending Physician. cp 02:21 Lipase Sent. ds4 02:21 Basic Metabolic Panel Sent. ds4 02:21 Hepatic Function Sent. ds4 02:21 Creatinine for Radiology Sent. ds4 02:21 CBC with Diff Sent. ds4 02:24 Triage completed. 03:03 Desean Don, RN is Primary Nurse. jb4 04:23 Urine Microscopic Only Sent. ds4 04:46 Avani Banerjee MD is Hospitalizing Provider. florentino 05:56 XRAY Chest (1 view) In Process Unspecified. EDMS 06:12 CT Abd/Pelvis - IV Contrast Only In Process Unspecified. EDMS 10:17 Primary Nurse role handed off by Desean Don, LYDIA 10:17 Naman Johnson, LYDIA is Primary Nurse. sg Administered Medications: 02:23 Drug: Zofran (Ondansetron) 4 mg Route: IVP; Site: left antecubital; lp1 03:34 Follow up: Response: No adverse reaction; Nausea unchanged jb4 02:23 Drug: Pepcid 20 mg Route: IVP; Site: left antecubital; lp1 02:50 Follow up: Response: No adverse reaction jb4 02:23 Drug: NS 0.9% 500 ml Route: IV; Rate: bolus; Site: left antecubital; lp1 03:15 Follow up: Response: No adverse reaction; IV Status: Completed infusion; IV Intake: jb4 500ml 03:21 Drug: morphine 2 mg {Note: Rass score 0.} Route: IVP; Site: left antecubital; jb4 03:34 Follow up: Response: No adverse reaction; Pain is decreased; RASS: Alert and Calm (0) jb4 03:34 Drug: Zofran (Ondansetron) 4 mg Route: IVP; Site: right antecubital; jb4 04:45 Drug: Phenergan 12.5 mg Route: IVP; Site: left antecubital; jb4 05:15 Follow up: Response: No adverse reaction; Nausea is decreased jb4 09:05 Drug: Reglan 10 mg Route: IVP; Site: left antecubital; 11:00 Drug: NS 0.9% 1000 ml Route: IV; Rate: 75 ml/hr; Site: left antecubital; 11:24 Drug: Rocephin 1 grams Route: IV; Rate: calculated rate; Site: left antecubital; sg Intake: 03:15 IV: 500ml; Total: 500ml. jb4 Outcome: 04:47 Decision to Hospitalize by Provider. [place] 14:03 Patient left the ED. sg Signatures: Dispatcher [employer] EDMS Naman Johnson RN RN sg Anderson, Corey, MD MD cha Sanford, Demi ds1 Natalia Flores RN RN lp1 [place] ds4 Abner South PA PA cp Baxter, Heather, RN RN Desean Don RN RN [facility] Savi Chan RN RN
--- NOTE | 2019-06-12 04:48 | EDPHYS ---
Physician Documentation [facility] Name: Rosanna York Age: 43 yrs Sex: Female : 1975 Arrival Date: 06/12/2019 Time: 02:03 Bed 6 Private MD: ED Physician Abner Westbrook HPI: 06/11 02:20 This 43 yrs old Female presents to ER via EMS with complaints of cp Nausea/vomiting. 02:20 The patient presents to the emergency department with nausea, that is moderate, cp vomiting, that is intermittent, abdominal pain, of the right lower quadrant. Onset: The symptoms/episode began/occurred 2 day(s) ago. Possible causes: flare up of bowel problem, cirrhosis. Associated signs and symptoms: Pertinent positives: abdominal pain, Pertinent negatives: constipation, diarrhea, fever, GI bleeding. Severity of symptoms: in the emergency department the symptoms are unchanged despite home interventions. Historical: - Allergies: 02:28 PENICILLINS (Upset stomach); - Home Meds: 02:28 Prozac Oral [Active]; Spironolactone Oral [Active]; Furosemide Oral [Active]; Hydrocodone-Acetaminophen 5/500 Oral [Active]; aspirin 325 mg Oral tab [Active]; insulin [Active]; - PMHx: 02:28 Cirrhosis; Diabetes - IDDM; Heart Murmur; Herniated disc; Hypertension; neuropathy; ah Pancreatitis; - Immunization history:: Flu vaccine is up to date. - Social history:: Smoking status: Patient denies any tobacco usage or history of. ROS: 02:25 Constitutional: Positive for poor PO intake, Negative for body aches, chills, fever. cp 02:25 Eyes: Negative for injury, pain, redness, and discharge. cp 02:25 ENT: Negative for drainage from ear(s), ear pain, sore throat, difficulty swallowing, difficulty handling secretions. 02:25 Cardiovascular: Negative for chest pain, palpitations. 02:25 Respiratory: Negative for cough, shortness of breath, wheezing. 02:25 Abdomen/GI: Positive for abdominal pain, nausea and vomiting, Negative for diarrhea, constipation, black/tarry stool, rectal bleeding. 02:25 Skin: Negative for rash. 02:25 Neuro: Negative for altered mental status, headache, weakness. 02:25 All other systems are negative. Exam: 02:30 Constitutional: The patient appears in no acute distress, alert, awake, cp non-diaphoretic, non-toxic, well developed, frail. 02:30 Head/Face: Normocephalic, atraumatic. cp 02:30 Eyes: Periorbital structures: appear normal, Pupils: equal, round, and reactive to light and accomodation, Extraocular movements: intact throughout, Conjunctiva: normal, no exudate, no injection, Sclera: no appreciated abnormality, Lids and lashes: appear normal, bilaterally. 02:30 ENT: External ear(s): are unremarkable, Nose: is normal, Mouth: Lips: moist, Oral mucosa: pink and intact, moist, Posterior pharynx: is normal, airway is patent, no erythema, no exudate. 02:30 Chest/axilla: Inspection: normal, Palpation: is normal, no crepitus, no tenderness. 02:30 Cardiovascular: Rate: normal, Rhythm: regular, Edema: is not appreciated, JVD: is not appreciated. 02:30 Respiratory: the patient does not display signs of respiratory distress, Respirations: normal, no use of accessory muscles, no retractions, labored breathing, is not present, Breath sounds: are clear throughout, no decreased breath sounds, no wheezing. 02:30 Abdomen/GI: Inspection: abdomen appears normal, Bowel sounds: active, all quadrants, Palpation: soft, in all quadrants, moderate abdominal tenderness, in the right lower quadrant, rebound tenderness, is not appreciated, voluntary guarding, is elicited in the right lower quadrant. 02:30 Back: pain, is absent. 02:30 Skin: cellulitis, is not appreciated, no rash present. 02:30 Neuro: Orientation: to person, place \T\ time. Mentation: is normal. Vital Signs: 02:05 BP 172 / 97; Pulse 68; Resp 16; Temp 98.1; Pulse Ox 100% ; Weight 65.77 kg; Height 5 ah ft. 5 in. (165.10 cm); 02:05 BP 172 / 97; Pulse 68; Resp 16; Temp 98.1; Pulse Ox 100% ; ah 03:00 BP 113 / 65; Pulse 59; Resp 16; Pulse Ox 100% on R/A; jb4 04:00 BP 166 / 91; Pulse 65; Resp 16; Pulse Ox 100% on R/A; jb4 05:00 BP 135 / 78; Pulse 80; Resp 16; Pulse Ox 100% on R/A; jb4 06:00 BP 134 / 75; Pulse 70; Resp 16; Pulse Ox 100% ; jb4 07:30 BP 114 / 88; Pulse 66; Resp 16; Pulse Ox 100% on R/A; jb4 08:30 BP 109 / 75; Pulse 67; Resp 16; Temp 97.7(TE); Pulse Ox 100% on R/A; jb4 02:05 Body Mass Index 24.13 (65.77 kg, 165.10 cm) ah MDM: 02:08 Patient medically screened. florentino 04:20 Patient medically screened. florentino 06/11 02:13 Order name: Basic Metabolic Panel cp 06/11 02:13 Order name: CBC with Diff cp 06/11 02:13 Order name: Creatinine for Radiology cp 06/11 02:13 Order name: Hepatic Function cp 06/11 02:13 Order name: Lipase cp 06/11 02:13 Order name: Urine Microscopic Only cp 06/11 03:31 Order name: CBC with Automated Diff; Complete Time: 04:01 EDMS 06/11 03:40 Order name: Creatinine (Radiology Only); Complete Time: 04:01 EDMS 06/11 03:45 Order name: Basic Metabolic Panel; Complete Time: 04:01 EDMS 06/11 03:45 Order name: Liver (Hepatic) Function; Complete Time: 04:01 EDMS 06/11 03:45 Order name: Lipase; Complete Time: 04:01 EDMS 06/11 04:24 Order name: Urine Dipstick--Ancillary (enter results) ds4 06/11 04:24 Order name: Urine Culture ds4 06/11 04:42 Order name: AMMONIA florentino 06/11 05:02 Order name: Urine Microscopic Only EDMS 06/11 05:02 Order name: Urine Dipstick-Ancillary EDMS 06/11 05:45 Order name: Ammonia EDMS 06/11 07:32 Order name: Ammonia EDMS 06/11 07:32 Order name: Ammonia EDMS 06/11 07:32 Order name: CBC with Automated Diff EDMS 06/11 07:32 Order name: CBC with Automated Diff EDMS 06/11 07:32 Order name: Comprehensive Metabolic Panel EDMS 06/11 07:32 Order name: Comprehensive Metabolic Panel EDMS 06/11 07:32 Order name: Lipid Profile EDMS 06/11 07:32 Order name: Lipid Profile EDMS 06/11 07:32 Order name: Protime (+INR) EDMS 06/11 07:32 Order name: Protime (+INR) EDMS 06/11 07:32 Order name: PTT, Activated Partial Thromb EDMS 06/11 07:32 Order name: PTT, Activated Partial Thromb EDMS 06/11 07:32 Order name: Troponin I EDKY 06/11 02:13 Order name: IV Saline Lock; Complete Time: 02:21 cp 06/11 02:13 Order name: Labs collected and sent; Complete Time: 02:21 cp 06/11 02:13 Order name: Urine Dipstick-Ancillary (obtain specimen); Complete Time: 04:23 cp 06/11 02:45 Order name: XRAY Chest (1 view); Complete Time: 11:19 cp 06/11 03:14 Order name: CT Abd/Pelvis - IV Contrast Only 06/11 07:32 Order name: CONS Pharmacy Consult EDKY 06/11 07:32 Order name: Consistent Carb (ADA) [address] EDMS 06/11 07:32 Order name: Troponin I; Complete Time: 11:19 EDMS 06/11 11:34 Order name: Glucose, Ancillary Testing EDKY 06/11 12:19 Order name: Glucose, Ancillary Testing EDKY Administered Medications: 02:23 Drug: Zofran (Ondansetron) 4 mg Route: IVP; Site: left antecubital; lp1 03:34 Follow up: Response: No adverse reaction; Nausea unchanged jb4 02:23 Drug: Pepcid 20 mg Route: IVP; Site: left antecubital; lp1 02:50 Follow up: Response: No adverse reaction jb4 02:23 Drug: NS 0.9% 500 ml Route: IV; Rate: bolus; Site: left antecubital; lp1 03:15 Follow up: Response: No adverse reaction; IV Status: Completed infusion; IV Intake: jb4 500ml 03:21 Drug: morphine 2 mg {Note: Rass score 0.} Route: IVP; Site: left antecubital; jb4 03:34 Follow up: Response: No adverse reaction; Pain is decreased; RASS: Alert and Calm (0) jb4 03:34 Drug: Zofran (Ondansetron) 4 mg Route: IVP; Site: right antecubital; jb4 04:45 Drug: Phenergan 12.5 mg Route: IVP; Site: left antecubital; jb4 05:15 Follow up: Response: No adverse reaction; Nausea is decreased jb4 09:05 Drug: Reglan 10 mg Route: IVP; Site: left antecubital; hb 11:00 Drug: NS 0.9% 1000 ml Route: IV; Rate: 75 ml/hr; Site: left antecubital; sg 11:24 Drug: Rocephin 1 grams Route: IV; Rate: calculated rate; Site: left antecubital; sg Disposition: 04:43 Co-signature as Attending Physician, Abner Westbrook MD I agree with the assessment and florentino plan of care. Disposition: 06/12/19 04:47 Hospitalization ordered by Avani Banerjee for Inpatient Admission. Preliminary diagnosis are Unspecified cirrhosis of liver, Type 1 diabetes mellitus, Vomiting, Volume depletion, Weakness, Unspecified kidney failure. - Bed requested for Telemetry/MedSurg (Inpatient). - Status is Inpatient Admission. sg - Condition is Fair. - Problem is new. - Symptoms have improved. Signatures: Dispatcher [employer] EDRosanna Rader RN RN dw Gay, Steven, RN RN sg Anderson, Corey, MD MD cha Pena, Laura, RN RN lp1 Mario Alberto Zamorano PA PA jr8 Abner South PA PA cp Baxter, Heather, RN RN Desean Don RN RN jb4 Savi Chan RN RN Corrections: (The following items were deleted from the chart) 04:48 04:47 Hospitalization Ordered by Avani Banerjee MD for Inpatient Admission. Preliminary florentino diagnosis is Unspecified cirrhosis of liver; Type 1 diabetes mellitus; Vomiting; Volume depletion; Weakness. Bed requested for Telemetry/MedSurg (Inpatient). Status is Inpatient Admission. Condition is Fair. Problem is new. Symptoms have improved. florentino 12:43 04:48 06/12/2019 04:47 Hospitalization Ordered by Avani Banerjee MD for Inpatient dw Admission. Preliminary diagnosis is Unspecified cirrhosis of liver; Type 1 diabetes mellitus; Vomiting; Volume depletion; Weakness; Unspecified kidney failure. Bed requested for Telemetry/MedSurg (Inpatient). Status is Inpatient Admission. Condition is Fair. Problem is new. Symptoms have improved. florentino 14:03 12:43 06/12/2019 04:47 Hospitalization Ordered by Avani Banerjee MD for Inpatient sg Admission. Preliminary diagnosis is Unspecified cirrhosis of liver; Type 1 diabetes mellitus; Vomiting; Volume depletion; Weakness; Unspecified kidney failure. Bed requested for Telemetry/MedSurg (Inpatient). Status is Inpatient Admission. Condition is Fair. Problem is new. Symptoms have improved. dw
[2019-06-12 05:01] LABS: Urine Bacteria LOADED /HPF (<20); Urine RBC <5 /HPF (NONE SEEN)
[2019-06-12 05:02] LABS: Urine Blood 2+ (NEG); Urine Glucose 1+ (NEG); Urine Protein 1+ (NEG); Urine Specific Gravity 1.025 (1.005-1.030); Urine pH 5.5 (5.0-7.0)
[2019-06-12] MEDS ORDERED: ACETAMINOPHEN 500 MG TAB PO PRN (07:25)
[2019-06-12] MEDS ORDERED: ONDANSETRON 4 MG/2 ML VIAL IV PRN ×2 (07:25→17:12)
[2019-06-12] MEDS: INSULIN -REGULAR HUMAN 50 UNIT/0.5 ML ML SQ SCH ×4 (07:30→20:27)
--- NOTE | 2019-06-12 07:57 | RAD REPORT ---
EXAM DESCRIPTION: Calvin Single View06/12/2019 3:17 am CLINICAL HISTORY: Chest pain/vomiting COMPARISON: May 2019 FINDINGS: The lungs appear clear of acute infiltrate. The heart is normal size IMPRESSION: No acute abnormalities displayed
--- NOTE | 2019-06-12 08:01 | P.HP ---
Certification for Inpatient Patient admitted to: Observation With expected LOS: <2 Midnights Patient will require the following post-hospital care: None Practitioner: I am a practitioner with admitting privileges, knowledge of patient current condition, hospital course, and medical plan of care. Services: Services provided to patient in accordance with Admission requirements found in Title 42 Section 412.3 of the Code of Federal Regulations Patient History Date of Service: 06/12/19 Reason for admission: Intractable nausea/vomiting; cirrhosis; diabetic gastroparesis History of Present Illness: Patient is a 43-year-old female came to the hospital with intractable nausea vomiting. She says she has had these episodes in the past. She is been diagnosed with gastroparesis. She also has cirrhosis. This is managed as an outpatient. At this time will start her on some IV fluids and anti emetics. Also start her on Reglan. She also has some acute kidney injury. Will hydrate her and admit her to the hospital for observation. Allergies Penicillins Allergy (Verified 03/24/18 17:25) Nausea/Vomiting Home Medications: Amitriptyline [Elavil*] 25 mg PO BEDTIME 02/02/18 Fluoxetine HCl [Prozac] 40 mg PO DAILY 02/02/18 Alendronate Sodium [Fosamax] 70 mg PO EVERY 7TH DAY 02/23/18 Fluticasone Propionate 1 spr MATTHIAS DAILY 05/08/19 Aspirin [Aspir-Low] 1 tab PO DAILY 05/17/19 Furosemide 1 tab PO DAILY 05/17/19 Gabapentin [Neurontin*] 600 mg PO BID 05/17/19 Insulin Degludec [Tresiba] 42 units SQ BID 05/17/19 Midodrine HCl 1 tab PO TID 05/17/19 Pantoprazole [Protonix Tab*] 40 mg PO DAILY 05/17/19 Spironolactone 1 tab PO DAILY 05/17/19 - Past Medical/Surgical History Diabetic: Yes -: Diabetes mellitus type 2, insulin dependent -: Liver cirrhosis -: Diabetic neuropathy -: Depression -: Insomnia -: Acute Kidney Injury -: Thrombocytopenia -: Pulmonary Edema -: Thrombocytopenia -: Bilateral lower leg cellulitis -: Bilateral Osteomyelitis -: Bilateral Osteomyelitis -: Cholecystectomy -: Right hip surgery -: Right Ankle surgery -: Right knee surgery Psychosocial/ Personal History: Patient is . She has 5 children. 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 - Family History Mother Medical History: Diabetes - Social History Alcohol use: Yes CD- Drugs: No Caffeine use: Yes Review of Systems 10-point ROS is otherwise unremarkable Physical Examination - Vital Signs Temperature: 98.6 F Blood Pressure: 120/70 Pulse: 80 Respirations: 18 Pulse Ox (%): 96 - Physical Exam General: Alert, In no apparent distress, Oriented x3 HEENT: Atraumatic, PERRLA, Mucous membr. moist/pink, EOMI, Sclerae nonicteric Neck: Supple, 2+ carotid pulse no bruit, No LAD, Without JVD or thyroid abnormality Respiratory: Clear to auscultation bilaterally, Normal air movement Cardiovascular: Regular rate/rhythm, Normal S1 S2, No murmurs Gastrointestinal: Normal bowel sounds, Soft and benign, Non-distended, No tenderness Musculoskeletal: No clubbing, No swelling, No tenderness Integumentary: No rashes Neurological: Normal gait, Normal speech, Normal strength at 5/5 x4 extr, Normal tone, Sensation intact, Cranial nerves 3-12 intact, Normal affect Lymphatics: No axilla or inguinal lymphadenopathy - Studies Laboratory Data (last 24 hrs) 06/12/19 02:10: Creatinine 1.44 H 06/12/19 02:10: WBC 7.9, Hgb 10.7 L, Hct 32.5 L, Plt Count 102 L 06/12/19 02:10: Sodium 136, Potassium 4.4, BUN 42 H, Creatinine 1.46 H, Glucose 337 H, Total Bilirubin 1.1 H, AST 41 H, ALT 34, Alkaline Phosphatase 448 H, Lipase 263 Assessment & Plan - Problems (Diagnosis) (1) Diabetic gastroparesis Current Visit: Yes Status: Acute (2) Intractable nausea and vomiting Current Visit: Yes Status: Acute (3) History of cirrhosis of liver Current Visit: Yes Status: Acute (4) CHRISTINE (acute kidney injury) Current Visit: No Status: Acute (5) Diabetes mellitus, type II Onset Date: 02/04/18 Current Visit: No Status: Chronic Qualifiers: (6) History of alcohol use Current Visit: No Status: Chronic - Plan Plan: 1. IV hydration 2. Anti emetics 3. Reglan 4. Strict blood sugar control 5. Monitor LFTs 6. Monitor H&H 7. GI and DVT prophylaxis Discharge Plan: Home Plan to discharge in: 48 Hours - Advance Directives Does patient have a Living Will: No Does patient have a Durable POA for Healthcare: No - Code Status/Comfort Care Code Status Assessed: Yes Code Status: Full Code Critical Care: No Time Spent Managing PTS Care (In Minutes): 40
[2019-06-12] MEDS: METOCLOPRAMIDE 10 MG/2mL INJ IV SCH ×2 (09:00→14:21)
[2019-06-12] MEDS ORDERED: METOCLOPRAMIDE 10 MG/2mL INJ ONE (09:05)
[2019-06-12] MEDS: NA CHLORIDE 0.9% 1,000 ML IV SCH (10:30)
--- NOTE | 2019-06-12 10:56 | RAD REPORT ---
EXAM DESCRIPTION: CT - Abdomen Pelvis W Contrast - 06/12/2019 6:32 am CLINICAL HISTORY: The patient is 43 years old and is Female; Abd pain;Nausea / vomiting TECHNIQUE: Axial computed tomography images of the abdomen and pelvis with intravenous contrast. S agittal and coronal reformatted images were created and reviewed. This CT exam was performed using one or more of the following dose reduction techniques: automated exposure control, adjustment of t he mA and/or kV according to patient size, and/or use of iterative reconstruction technique. COMPARISON: CT of the pelvis 06/16/2019 FINDINGS: LUNG BASES: Unremarkable. No mass. No consolidation. ABDOMEN: LIVER: Unremarkable. No mass. GALLBLADDER AND BILE DUCTS: Surgical clips are present in the right upper quadrant, consistent w ith previous cholecystectomy. PANCREAS: No ductal dilation. No mass. SPLEEN: The spleen is enlarged. ADRENALS: Unremarkable. No mass. KIDNEYS AND URETERS: Unremarkable. The kidneys enhance symmetrically. No obstructing renal or ur eteral calculus is seen. No hydronephrosis or hydroureter. No perinephric fluid or stranding. STOMACH AND BOWEL: The stomach is decompressed. The small bowel is normal in caliber. Stool is p resent throughout colon. There is no mucosal thickening or evidence of bowel obstruction. PELVIS: APPENDIX: No findings to suggest acute appendicitis. BLADDER: The bladder is well distended. REPRODUCTIVE: Unremarkable as visualized. ABDOMEN and PELVIS: INTRAPERITONEAL SPACE: Unremarkable. No free air. No significant fluid collection. BONES/JOINTS: Postsurgical change of the proximal right femur is present. A left hip prosthesis is present. Chronic compression deformity of the superior endplate of T12 is present with associate d sclerosis and minimal height loss. There is no retropulsion. SOFT TISSUES: The soft tissues are normal. VASCULATURE: Multiple small collateral mesenteric vessels are noted throughout the abdomen and p brianna. No abdominal aortic aneurysm. LYMPH NODES: Unremarkable. No enlarged lymph nodes. IMPRESSION: No acute findings on this contrasted CT of the abdomen and pelvis to explain the patient 's symptoms. Electronically signed by: Ashlee Burgos MD 06/12/2019 5:43 AM CDT Due to temporary technical issues with the PACS/Fluency reporting system, reports are being signed by the in house radiologist as a courtesy to ensure prompt reporting. The interpreting radiologist is marcello raely responsible for the content of the report.
[2019-06-12] MEDS ORDERED: NA CHLORIDE 0.9% 1,000 ML ONE (11:19)
[2019-06-12] MEDS ORDERED: INSULIN -REGULAR HUMAN 50 UNIT/0.5 ML ML ONE (11:28)
[2019-06-12] MEDS ORDERED: CEFTRIAXONE/SWI 1gm 1 GM/10 ML SYR ONE (11:28)
[2019-06-12 11:46] VITALS: BMI 25.9
[2019-06-12 15:14] VITALS: O2SAT 100
[2019-06-12] MEDS ORDERED: INFLUENZA VACCINE (for 3y+) 0.5 ML DOSE IMVAC ONE (16:00)
[2019-06-12] MEDS ORDERED: PNEUMOCOCCAL VACCINE 0.5 ML IMVAC ONE (16:00)
--- NOTE | 2019-06-12 17:04 | P.PN ---
Date of Service: 06/12/19 Pt admitted for intractable vx ,will add stevenson
[2019-06-12] MEDS: METOCLOPRAMIDE 5 MG TAB PO SCH ×2 (17:59→20:28)
[2019-06-12] MEDS: MORPHINE 2 MG/ML SYR IV PRN (20:34)
[2019-06-13] MEDS: NA CHLORIDE 0.9% 1,000 ML IV SCH ×2 (02:32→12:59)
[2019-06-13] MEDS: MORPHINE 2 MG/ML SYR IV PRN ×3 (02:32→16:50)
[2019-06-13 05:58] LABS: Absolute Lymphocytes (CBC) 1.1 K/uL (0.7-4.9); Basophils % 0.3 % (0-1.3); Hematocrit 29.2 % (36.0-45.0); Lymphocytes % 17.9 % (15.3-44.8); MPV 8.9 fL (7.6-11.3); Protime INR 1.13; RBC Red Blood Cell Count 3.34 M/uL (3.86-4.86)
[2019-06-13 06:06] LABS: Albumin 2.8 g/dL (3.4-5.0); Bilirubin Total 0.9 mg/dL (0.2-1.0); Potassium 3.9 mmol/L (3.5-5.1); Protein, Total 7.9 g/dL (6.4-8.2)
[2019-06-13] MEDS: INSULIN -REGULAR HUMAN 50 UNIT/0.5 ML ML SQ SCH ×4 (07:30→20:33)
[2019-06-13 07:54] LABS: Blood Morphology Comment NOT SEEN (NOT SEEN)
[2019-06-13 08:49] LABS: Platelet Estimate DECR
[2019-06-13] MEDS: METOCLOPRAMIDE 5 MG TAB PO SCH ×4 (10:12→20:33)
--- NOTE | 2019-06-13 12:07 | P.PN ---
Subjective Date of Service: 06/13/19 Chief Complaint: Intractable nausea/vomiting; cirrhosis; diabetic gastroparesis Improving. tolerating po somewhat Physical Examination - Vital Signs Temperature: 97.6 F Blood Pressure: 99/58 Pulse: 62 Respirations: 18 Pulse Ox (%): 99 - Physical Exam General: Alert, In no apparent distress HEENT: Atraumatic, PERRLA, EOMI Neck: Supple, JVD not distended Respiratory: Clear to auscultation bilaterally, Normal air movement Cardiovascular: Regular rate/rhythm, Normal S1 S2 Gastrointestinal: Normal bowel sounds, Tenderness Musculoskeletal: No tenderness Integumentary: No rashes Neurological: Normal speech, Normal tone, Normal affect Lymphatics: No axilla or inguinal lymphadenopathy Assessment & Plan Discharge Plan: Home - Code Status/Comfort Care Code Status Assessed: Yes Physician Review Additional Text: Ms York is a 43-year-old presented with intractable nausea vomiting. # intractable nausea and vomiting-probable diabetic gastroparesis. Patient is still with epigastric pain. -urinary tract infection might be contributory. -pain control. Anti emetics including Zofran and Reglan. -continue oral intake. # urinary tract infection-UA was strongly positive. Urine culture with gram- negative rods. -will follow final culture. -continue IV hydration. Initiate patient on levofloxacin. -patient with chronic hypotension, on midodrine at home. # acute kidney injury-improved. -IV hydration will continue. -avoid nephrotoxins # diabetes mellitus-BG AC and HS and cover with insulin sliding scale # cirrhosis of the liver secondary to alcohol abuse-hold spironolactone and furosemide. # thrombocytopenia-likely due to liver disease. DVT prophylaxis-SCD Patient is full code
[2019-06-13] MEDS: Levofloxacin500mg IV 500 MG/100 ML BAG IV SCH (12:58)
[2019-06-14] MEDS: MORPHINE 2 MG/ML SYR IV PRN ×2 (01:08→11:57)
[2019-06-14] MEDS: NA CHLORIDE 0.9% 1,000 ML IV SCH ×3 (02:41→13:20)
[2019-06-14] MEDS: INSULIN -REGULAR HUMAN 50 UNIT/0.5 ML ML SQ SCH ×2 (07:30→11:56)
[2019-06-14] MEDS: METOCLOPRAMIDE 5 MG TAB PO SCH ×2 (08:04→11:39)
[2019-06-14] MEDS: Levofloxacin500mg IV 500 MG/100 ML BAG IV SCH (12:00)
[2019-06-14 13:34] VITALS: BP 107/57; TEMP 97.3
--- NOTE | 2019-06-15 00:14 | DS ---
Date of Discharge: 06/14/2019 Discharge Diagnoses: 1.Intractable nausea, vomiting secondary to diabetic gastroparesis, improved. 2.Urinary tract infection. 3.Acute renal failure, resolved. 4.Thrombocytopenia, chronic. 5.Anemia. 6.Diabetes mellitus. 7.Cirrhosis of the liver. Consult: None. Procedure: CT of the abdomen and pelvis done on the day of admission on 06/11, showed no acute findi ng, multiple small collateral mesenteric vessels to the abdomen pelvis. No aortic aneurysm. Chronic compression deformity of the superior endplate of T12 present associated with sclerosis and minimal height loss, seems enlarged. Pancreas is normal. Liver is unremarkable. History Of Present Illness: Please refer to Dr. Banerjee's note. Hospital Course: Initially, the patient presented to the hospital with intractable nausea, vomiting, and she was evaluated. CT of the abdomen was normal. She found to have UTI. Patient was started o n IV hydration, antiemetic, and she was started on Reglan. Urine culture was positive for Klebsiella so patient was placed on the Levaquin. Patient had no leukocytosis or fever during her hospital sta y. Today, her nausea resolved. She was able to tolerate her diet in the morning and at lunch. She was willing to discharge home. She will be discharged home in stable condition. She was advised str ongly to follow up with GI this week. In terms of her UTI, we will continue on Levaquin for 8 more d ays. We will give patient prescription for that. She was also given prescription for Reglan before meals and again advised to follow up with her GI doctor at [facility]. The patient was in acute renal failure and she was given IV fluids and her creatinine is back current ly to normal at 1.19. Discharge Condition: Stable. Discharge Diet: Diabetic 1800 ADA. Discharge Followup: With primary physician this week with lab. Follow up with GI physician this dagoberto barajas Discharge Activity: As tolerated. Physical Examination: Discharge vital signs: Blood pressure 107/57, respiratory rate 18, pulse 68, temperature 97.3. General: She is alert and oriented x3. Does not look in any distress. HEENT: Atraumatic, normocephalic. PERRLA, EOMI. Oral mucosa is moist. Neck: Supple. No JVD. No carotid bruits. Chest: Clear to auscultation. Good air entry. Heart: Regular rate and rhythm. S1, S2 normal. No gallop or murmur. Abdomen: Soft, nontender with no hepatosplenomegaly. Positive bowel sounds. Extremities: No clubbing, cyanosis or edema. No calf tenderness. Neuro: Deferred. Discharge Medications: Levaquin 500 mg for 7 days, Reglan 5 mg before meals 3 times a day, aspirin 8 1 mg once a day, Prozac 40 mg daily, Lasix 40 mg daily, hydrocodone or [place] 1 tablet every 6 hours a s before, insulin 42 units subcutaneously twice a day, midodrine 5 mg t.i.d., Prilosec 40 mg daily, spironolactone 100 mg daily. YONNY/URBANO Voice ID: [id number] Report ID: [id number]
== END 2019-06-14 15:50 | disposition home or self-care (01) ==
LOC: ER 01:58 → INTOOBSV 07:25 → OBSVTOIN 07:25 → ERHOLD 07:25 → 2ND 13:20
PROVIDERS: ADMIT Hospitalist; ATTEND Internal Medicine
DX: E11.43 Type 2 diabetes mellitus with diabetic autonomic (poly)neuropathy (principal); K31.84 Gastroparesis; R11.2 Nausea with vomiting, unspecified; N39.0 Urinary tract infection, site not specified; B96.1 Klebsiella pneumoniae [K. pneumoniae] as the cause of diseases classified elsewhere; N17.9 Acute kidney failure, unspecified; D69.6 Thrombocytopenia, unspecified; D64.9 Anemia, unspecified; K70.30 Alcoholic cirrhosis of liver without ascites; F10.10 Alcohol abuse, uncomplicated; Z88.0 Allergy status to penicillin; Z79.4 Long term (current) use of insulin; Z79.82 Long term (current) use of aspirin; Z83.3 Family history of diabetes mellitus
CPT/HCPCS: 36415; 71045; 74177; 80048; 80053; 80061; 80076; 81003; 81015; 82140; 82947; 83690; 84484; 85025; 85610; 85730; 87077; 87086; 87088; 87186; 96361; 96374; 96375; 99284; G0378; J0696; J2270; J2405; J2550; J2765; J7030; J7040; Q9967